=== PATIENT | female | born 1970 | race Caucasian/White ===

== ENCOUNTER 2017-10-09 20:16 | Inpatient (IN) ==
[2017-10-09] MEDS ORDERED: Naloxone 0.4 MG/ML INJ IVP PRN (22:29)
[2017-10-09] MEDS ORDERED: Ondansetron 4 MG/2 ML VIAL IVP PRN (22:29)
[2017-10-09] MEDS ORDERED: Acetaminophen 325 MG TABLET PO PRN (22:29)
[2017-10-09] MEDS ORDERED: Dextrose Gel 15 GM PO PRN ×2 (22:35)
[2017-10-09] MEDS ORDERED: D5% in Water 1,000 ML IVC PRN (22:35)
[2017-10-09] MEDS ORDERED: *HR* Dextrose 50 % in Water (Syg) 50 ML SYRINGE IVP PRN (22:35)
--- NOTE | 2017-10-09 22:37 | Internal Med History&Physical ---
Date of Encounter: 10/09/17 Time of Encounter: 22:20 Assessment and Plan (1) Diabetic foot ulcer Current visit: Yes Status: Acute Chronic diabetic foot ulcer of the right foot, seems to be worsening - possible osteomyelitis or possible gas gangrene - with abscess Continue IV Cefepime, IV Vancomycin, IV Clindamycin, IV fluids Chest x-ray - negative EKG - sinus rhythm with no acute ST-T changes Troponin - 0.04, cycle troponin X-ray right foot - no evidence of osteomyelitis, mild soft tissue gas Podiatry consult Cardiac telemetry, labs in a.m., monitor closely Qualifiers: Diabetic foot ulcer location: heel Diabetes mellitus type: type 2 Laterality: right Non-pressure ulcer stage: with muscle involvement without evidence of necrosis Qualified Code(s): E11.621 - Type 2 diabetes mellitus with foot ulcer; L97.415 - Non-pressure chronic ulcer of right heel and midfoot with muscle involvement without evidence of necrosis; L97.415 - Non-pressure chronic ulcer of right heel and midfoot with muscle involvement without evidence of necrosis (2) Acute kidney injury Current visit: Yes Status: Acute Acute kidney injury - probably due to sepsis due to right foot ulcer/wound Continue IV fluids, repeat labs in a.m. Replace electrolytes including magnesium, monitor closely (3) Diabetes mellitus Current visit: Yes Status: Chronic Type 2 diabetes mellitus, insulin-dependent, hyperglycemia Continue Levemir, insulin sliding scale, glucose checks Qualifiers: Diabetes mellitus type: type 2 Diabetes mellitus complication status: with skin complications Diabetes mellitus complication detail: with foot ulcer Diabetes mellitus fci insulin use: with fci use Qualified Code(s) : E11.621 - Type 2 diabetes mellitus with foot ulcer; L97.509 - Non-pressure chronic ulcer of other part of unspecified foot with unspecified severity; L97.509 - Non-pressure chronic ulcer of other part of unspecified foot with unspecified severity; L97.509 - Non-pressure chronic ulcer of other part of unspecified foot with unspecified severity; L97.509 - Non-pressure chronic ulcer of other part of unspecified foot with unspecified severity; 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; 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; 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; Z79.4 - prison (current) use of insulin (4) HTN (hypertension) Current visit: Yes Status: Chronic Essential hypertension, controlled, monitor Continue home dose of Lopressor, HCTZ Qualifiers: Hypertension type: essential hypertension Qualified Code(s): I10 - Essential (primary) hypertension (5) Tobacco abuse Current visit: Yes Status: Chronic Counseled about cessation, nicotine patch (6) Hyperlipidemia Current visit: Yes Status: Chronic Continue Lipitor Qualifiers: Hyperlipidemia type: unspecified Qualified Code(s): E78.5 - Hyperlipidemia , unspecified (7) DVT prophylaxis Current visit: Yes Status: Acute Heparin subcutaneous Internal Medicine - H&P: HPI Chief complaint: Right foot ulcer Admitted From: Emergency Dept Plans for Post Hospital Care: Home History of present illness: Ms. Larson is a 46 year old female past medical history of hypertension, hyperlipidemia, chronic lower extremity wounds and diabetes. Patient presents as a transfer from [facility] for right foot ulcer. Examined in the room. Patient is awake and alert. Not in any distress. Able to provide all history. No family members at bedside. Patient states she follows up with wound care clinic for chronic foot wound. Home health nurse also comes to change her dressing daily. Today patient noticed that she has been having more pain over right heel. She noticed that the ulcer has also gotten darker, and she also seems to have developed another ulcer on the lateral aspect of her right foot. Patient then decided to go to the ED to have her right foot wound evaluated. She denies fever or chills. Denies chest pain or shortness of breath or palpitations. Patient states she follows up with podiatry regularly. She has also been on IV vancomycin and IV cefepime in the recent past. She has not had any debridement recently. No aggravating or alleviating factors. No other associated symptoms. No other acute complaints. Hospitalist service was contacted for transfer to [facility] for further management. Initial workup revealed elevated white count and acute kidney injury. Chest x- ray is negative. X-ray of the right foot is negative for us to myelitis, but there is some soft tissue gas. Patient will need IV antibiotics and IV fluids. Podiatry consult is pending. Change dressing daily. Patient has been explained about her condition and plan of care detail. She understood and agreed. No unanswered questions. CODE STATUS full code. Past Med Surg Social Fam HX - Past Medical History Medical history: diabetes, hypertension, other Psychiatric history: depression - Past Surgical History Surgical History: hysterectomy - Social History Smoking Status: Current every day smoker Smokeless Tobacco Status: No Alcohol use: none Drug use: none - Family History Sister Hx Family Endocrine Disorder: Yes (Diabetes) Grandfather Hx Family Cardiac Disorders: Yes (Coronary artery disease at age 50) Father Hx Family Cardiac Disorders: Yes Hx Family Cancer: Yes (prostate cancer) Internal Medicine - H&P: Meds Atorvastatin [Lipitor] 20 mg PO QPM 06/11/15 [History] Cholecalciferol (Vitamin D3) [Vitamin D3] 10,000 unit PO QWEEK PRN 06/11/15 [ History] Gabapentin [Neurontin] 600 mg PO TID 06/11/15 [History] Hydrochlorothiazide 25 mg PO QAM 06/11/15 [History] Ibuprofen [Motrin] 800 mg PO TID PRN 06/11/15 [History] Insulin ASPART [NovoLOG] 0 - 12 unit SQ AD 06/11/15 [History] Insulin Glargine,Hum.rec.anlog [Lantus Solostar] 0.6 ml SQ QPM 06/11/15 [History ] Metoprolol [Lopressor] 25 mg PO DAILY 06/11/15 [History] Quetiapine Fumarate [Seroquel] 100 mg PO HS 06/11/15 [History] SUMAtriptan Succinate [Imitrex] 100 mg PO AD PRN 06/11/15 [History] Cefepime HCl [Maxipime] 1,000 mg IVPB Q8HR 14 Days vial 06/17/15 [Rx] Vancomycin [Vancocin] 1,250 mg IV Q12H 14 Days vial 06/17/15 [Rx] 3 Allergy/AdvReac Type Severity Reaction Status Date / Time Penicillins Allergy Hives Verified 06/11/15 15:16 All Systems PM: A 10-system review of systems was performed and is negative for pertinent findings except as documented above in the HPI. - Constitutional Constitutional: fatigue, no fever(s), no weakness - EENT Eyes: no blurry vision Nose, mouth and throat: no dry mouth - Cardiovascular Cardiovascular ROS IM: no chest pain, no diaphoresis, no dyspnea, no dyspnea on exertion, no edema, no lightheadedness, no orthopnea, no palpitations, no syncope - Respiratory Respiratory: no cough, no dyspnea, no hemoptysis, no dyspnea on exertion, no wheezing, no chest congestion - Gastrointestinal Gastrointestinal: no abdominal pain, no bloating, no cramping, no diarrhea, no hematemesis, no hematochezia, no loose stools, no melena, no nausea, no vomiting - Genitourinary Genitourinary: no dysuria - Neurological Neurological ROS: no abnormal gait, no abnormal speech, no confusion, no dizziness, no focal weakness, no loss of vision, no memory loss, no numbness, no tingling - Constitutional Vitals: Temp Pulse Resp BP Pulse Ox 97.7 F 109 18 115/76 96 10/09/17 22:11 10/09/17 22:11 10/09/17 22:11 10/09/17 22:11 10/09/17 22:11 General appearance: Present: cooperative, A&O X 3, pleasant, no acute distress, answers questions appropriately - Head Head exam: Present: atraumatic - Eye Eye exam: Present: EOMI - ENT ENT exam: Present: mucous membranes dry - Respiratory Respiratory exam: Present: CTAB. Absent: accessory muscle use, chest wall tenderness, rales, respiratory distress, rhonchi, wheezes, tachypnea - Cardiovascular Cardiovascular exam: Present: RRR, +S1, +S2 - GI/Abdominal GI/Abdominal exam: Present: soft. Absent: distended, firm, guarding, tenderness - Extremities Exam Extremities exam: Present: pedal edema (Bilateral 2+ pitting edema), radial pulses palpable and symmetrical. Absent: calf tenderness, cyanotic Additional comments: Patient does have a large extensive ulcer over the right heel with eschar. No discharge seen. There is another ulcer on the lateral aspect of the right foot. There is some odor. - Neurological Exam Neurological exam: Present: alert, oriented X3, no focal deficits. Absent: facial droop, speech deficit Internal Med - H&P Results - Labs CBC & Chem 7: 10/09/17 22:59 10/10/17 01:57
[2017-10-09] MEDS ORDERED: Vancomycin 1,000 MG in D5% in Water 250 ML IVPB SCH (23:00)
[2017-10-09 23:10] LABS: Basophils % 0.2 %; Eosinophils # 0.1 K/mcL (0.0-0.6); Eosinophils % 0.7 %; Hematocrit 26.6 % (35.3-44.9); Hemoglobin 8.8 g/dL (11.5-15.4); Immature Granulocytes % 0.7 % (0-4); Lymphocytes # 1.9 K/mcL (0.6-4.6); Lymphocytes % 13.7 %; Mean Corpuscular HGB Conc 33.1 g/dL (31.6-35.5); Mean Corpuscular Hemoglobin 30.3 pg (28.0-33.3); Mean Corpuscular Volume 91.7 fL (83.0-100.0); Mean Platelet Volume 8.8 fL (9.4-12.4); Monocytes # 1.4 K/mcL (0.0-1.3); Monocytes % 10.3 %; Neutrophils # 10.3 K/mcL (1.6-8.9); Platelet Count 330 K/mcL (140-400); Red Cell Distribution Width 12.9 % (11.5-14.5); Segmented Neutrophils % 74.4 %
[2017-10-09 23:14] LABS: INR 1.3; Prothrombin Time 14.3 Seconds (9.4-12.1)
[2017-10-09 23:24] LABS: Albumin 2.2 g/dL (3.5-5.0); Albumin/Globulin Ratio 0.4 (1.1-2.2); Bilirubin,Total 0.3 mg/dL (0.2-1.2); Calcium 8.8 mg/dL (8.6-10.8); Globulin 5.1 g/dL (2.4-3.5); Magnesium 1.3 mg/dL (1.6-2.6); Total Protein 7.3 g/dL (6.0-8.3)
[2017-10-09] MEDS: Aspirin 81 MG TAB.CHEW PO SCH (23:54)
[2017-10-10] MEDS ORDERED: Cefepime HCl 2,000 MG in D5% in Water (Mini-Bag+) 100 ML IVPB SCH
[2017-10-10 00:14] LABS: Bilirubin,Urine Negative (Negative); Blood,Urine Negative (Negative); Clarity,Urine Clear (Clear); Color,Urine Yellow (Yellow); Glucose,Urine (UA) Normal (Normal); Ketones,Urine Negative (Negative); Leukocyte Esterase,Urine Negative (Negative); Nitrite,Urine Negative (Negative); Protein,Urine Trace mg/dL (Neg-Trace); Specific Gravity,Urine 1.017 (1.010-1.025); Urobilinogen,Urine Normal (Normal)
[2017-10-10 00:16] LABS: Bacteria,Urine None Seen per hpf (None-Few); Hyaline Casts,Urine None Seen per lpf (None-Few); Squamous Epithelial Cell,Urine Many per lpf (None-Few); WBC,Urine 0-3 per hpf (0-3)
[2017-10-10] MEDS: 0.9 % Sodium Chloride 1,000 ML IVC SCH ×3 (01:09→23:27)
[2017-10-10] MEDS: Cefepime HCl 2,000 MG in Water for inj. (sterile) 20 ML IVP SCH ×3 (01:09→21:45)
[2017-10-10] MEDS: Vancomycin 1,250 MG in D5% in Water 250 ML IVPB SCH (01:26)
[2017-10-10] MEDS: Insulin LISPRO 300 UNITS/3 ML VIAL SQ SCH ×5 (01:31→23:53)
[2017-10-10] MEDS: Nicotine 21 MG PATCH.TD24 TD SCH ×2 (02:05→07:57)
[2017-10-10 02:27] LABS: % Iron Saturation 38 % (15-50); Calcium 8.7 mg/dL (8.6-10.8); Chol/HDL Ratio 8.2 (0-4.9); Iron 50 mcg/dL (50-170); Potassium 4.8 mEq/L (3.5-4.5); Transferrin 93 mg/dL (180-382)
[2017-10-10] MEDS: *HR* Heparin 5,000 UNIT/ML VIAL SQ SCH ×2 (05:23→18:16)
[2017-10-10] MEDS: Clindamycin 900 MG/50 ML 900 MG/50 ML IV.SOLN IVPB SCH ×3 (07:57→23:27)
[2017-10-10] MEDS: Aspirin 81 MG TAB.CHEW PO SCH (07:58)
[2017-10-10] MEDS ORDERED: SUMAtriptan succinate 50 MG TABLET PO PRN (10:31)
--- NOTE | 2017-10-10 10:39 | Internal Med Progress Note ---
Date of Encounter: 10/10/17 Time of Encounter: 10:35 - Assessment and plan (1) Osteomyelitis Current Visit: Yes Status: Acute Assessment and plan: Continue Vanco, clinda, cefepime Podiatry has been consulted CT/CT foot RT wo con IMPRESSION: 1. Large plantar and lateral hindfoot ulceration with extensive soft tissue gas. There is soft tissue gas extending to involve the calcaneus. Findings are consistent with gas-forming bacterial infection and osteomyelitis. 2. Additional soft tissue gas within the lateral soft tissues of the midfoot consistent with additional site of gas-forming bacterial infection. Qualifiers: Osteomyelitis type: unspecified type Osteomyelitis location: foot Laterality: right Qualified Code(s): M86.9 - Osteomyelitis, unspecified (2) Diabetic foot ulcer Current Visit: Yes Status: Acute Assessment and plan: Gas gangrene, infected DM foot lcer Podiatry was called this morning and informed Continue Cllindamycin, Vancomcycin and Cefepime Continue wound care Wound culture was obtained, will follow CT/CT foot RT wo con IMPRESSION: 1. Large plantar and lateral hindfoot ulceration with extensive soft tissue gas. There is soft tissue gas extending to involve the calcaneus. Findings are consistent with gas-forming bacterial infection and osteomyelitis. 2. Additional soft tissue gas within the lateral soft tissues of the midfoot consistent with additional site of gas-forming bacterial infection. Qualifiers: Diabetic foot ulcer location: heel Diabetes mellitus type: type 2 Laterality: right Non-pressure ulcer stage: with fat layer exposed Qualified Code(s): E11.621 - Type 2 diabetes mellitus with foot ulcer; L97.412 - Non-pressure chronic ulcer of right heel and midfoot with fat layer exposed; L97.412 - Non-pressure chronic ulcer of right heel and midfoot with fat layer exposed; L97.412 - Non-pressure chronic ulcer of right heel and midfoot with fat layer exposed; L97.412 - Non-pressure chronic ulcer of right heel and midfoot with fat layer exposed (3) Gas gangrene Current Visit: Yes Status: Acute Assessment and plan: as above (4) HTN (hypertension) Current Visit: Yes Status: Chronic Assessment and plan: Controlled, continue home medications except lisinopril and hydrochlorothiazide due to acute kidney injury. Qualifiers: Hypertension type: essential hypertension Qualified Code(s): I10 - Essential (primary) hypertension (5) Depression Current Visit: Yes Status: Chronic Assessment and plan: Continue home medications. Qualifiers: Depression Type: unspecified Qualified Code(s): F32.9 - Major depressive disorder, single episode, unspecified (6) Anemia Current Visit: Yes Status: Chronic Assessment and plan: Chronic, possibly anemia of chronic disease. Hemoglobin is stable at 8.8. Continue to monitor. Qualifiers: Anemia type: unspecified type Qualified Code(s): D64.9 - Anemia, unspecified (7) Acute kidney injury Current Visit: Yes Status: Acute Assessment and plan: Continue IV fluid hydration, continue to monitor. avoid nephrotoxins. (8) Hyperlipidemia Current Visit: Yes Status: Chronic Assessment and plan: Continue home meds Qualifiers: Hyperlipidemia type: unspecified Qualified Code(s): E78.5 - Hyperlipidemia , unspecified (9) DVT prophylaxis Current Visit: Yes Status: Acute Assessment and plan: Heparin SQ (10) Diabetes mellitus Current Visit: Yes Status: Chronic Assessment and plan: Add levemir, continue SSI Monitor FS ACHS ADA diet Qualifiers: Diabetes mellitus type: type 2 Diabetes mellitus complication status: with skin complications Diabetes mellitus complication detail: with foot ulcer Diabetes mellitus nursing home insulin use: with intermediate teacher use Qualified Code(s) : E11.621 - Type 2 diabetes mellitus with foot ulcer; L97.509 - Non-pressure chronic ulcer of other part of unspecified foot with unspecified severity; L97.509 - Non-pressure chronic ulcer of other part of unspecified foot with unspecified severity; L97.509 - Non-pressure chronic ulcer of other part of unspecified foot with unspecified severity; L97.509 - Non-pressure chronic ulcer of other part of unspecified foot with unspecified severity; 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 46-year-old female with uncontrolled type 2 diabetes mellitus with history of chronic right foot ulcer. Patient is admitted and being managed for infected and gangrenous diabetic foot ulcer, as well as acute kidney injury. She is awaiting podiatry evaluation. She denies new complaints. I will obtain CAT scan of the foot - Constitutional Vitals: Temp Pulse Resp BP Pulse Ox 98.1 F 98 16 104/69 96 10/10/17 07:17 10/10/17 07:17 10/10/17 07:17 10/10/17 07:17 10/10/17 07:17 General appearance: Present: cooperative, A&O X 3, pleasant, no acute distress, obese, answers questions appropriately - Head Head exam: Present: atraumatic, normocephalic - Eye Eye exam: Present: PERRL, conjuntiva pink, sclera anicteric Pupils: Present: PERRL - Neck Neck exam general surgery: Present: supple, trachea midline. Absent: lymphadenopathy - Respiratory Respiratory exam: Present: CTAB. Absent: accessory muscle use, rales, rhonchi, wheezes - Cardiovascular Cardiovascular exam: Present: RRR, +S1, +S2. Absent: diastolic murmur, gallop, rubs, systolic murmur - GI/Abdominal GI/Abdominal exam: Present: normal bowel sounds, soft, no peritoneal signs. Absent: distended, tenderness - Extremities Exam Additional comments: Right heel with open wound approximately 7cm in Diameter. Edges Has Gangrene and Basal the Wound Is Necrotic with no Noticeable Granulation Tissue. Pulses are present and foot is warm LEft foot s/p Big toe amputation - Neurological Exam Neurological exam: Present: alert, CN II-XII intact, oriented X3, no focal deficits. Absent: pronater drift, facial droop, speech deficit - Skin Skin exam: Present: dry Internal Medicine: Result - Labs CBC & Chem 7: 10/09/17 22:59 10/10/17 01:57 Labs: Short CBC 10/09/17 Range/Units 22:59 WBC 13.8 H (4.3-11.1) K/mcL Hgb 8.8 L (11.5-15.4) g/dL Hct 26.6 L (35.3-44.9) % Plt Count 330 (140-400) K/mcL Neutrophils # 10.3 H (1.6-8.9) K/mcL BMP 10/09/17 10/10/17 22:59 01:57 Sodium 132 L 130 L Potassium 5.0 H 4.8 H Chloride 102 104 Carbon Dioxide 21 20 BUN 45 H 45 H Creatinine 1.93 H 1.86 H Glucose 200 H 211 H Calcium 8.8 8.7 Cardiac Enzymes 10/09/17 10/10/17 10/10/17 Range/Units 22:59 01:57 06:06 Troponin I 0.05 H* 0.04 H* 0.03 (0-0.03) ng/mL Liver Function 10/09/17 Range/Units 22:59 Total Bilirubin 0.3 (0.2-1.2) mg/dL AST 17 (5-34) Units/L ALT 27 (0-55) Units/L Alkaline Phosphatase 146 H (38-126) Units/L Albumin 2.2 L (3.5-5.0) g/dL Urine 10/09/17 Range/Units 23:55 Urine Color Yellow (Yellow) Urine Clarity Clear (Clear) Urine pH 6.0 (5.0-8.0) pH Units Ur Specific Beryl 1.017 (1.010-1.025) Urine Protein Trace (Neg-Trace) mg/dL Urine Glucose (UA) Normal (Normal) mg/dL - ABG Interpretation ABG results: PT/INR, D-dimer PT 14.3 Seconds (9.4-12.1) H 10/09/17 22:59 - Impressions Impressions Chest X-Ray 10/09/17 22:35 IMPRESSION: Hypoventilatory changes. No evidence of acute cardiopulmonary process. Left basilar opacity is most compatible with atelectasis and/or scarring. Recommend radiographic follow-up to complete resolution. D/ / Bridger Tran MD / Bridger Tran MD Interpreting Provider: Bridger Tran MD Foot X-Ray 10/10/17 01:14 IMPRESSION: No radiographic evidence for osteomyelitis. D/ / Jaiden Frost MD / Jaiden Frost MD Interpreting Provider: Jaiden Frost MD Consult Discharge Plan - Plan Referrals: Alejandro Le DO [Primary Care Provider] -
--- NOTE | 2017-10-10 12:53 | Podiatry Consult Note ---
Date of Encounter: 10/10/17 Time of Encounter: 12:30 Assessment and Plan (1) Diabetes mellitus Current visit: Yes Status: Chronic Qualifiers: Diabetes mellitus type: type 2 Diabetes mellitus complication status: with skin complications Diabetes mellitus complication detail: with foot ulcer Diabetes mellitus fci insulin use: with fci use Qualified Code(s) : E11.621 - Type 2 diabetes mellitus with foot ulcer; L97.509 - Non-pressure chronic ulcer of other part of unspecified foot with unspecified severity; L97.509 - Non-pressure chronic ulcer of other part of unspecified foot with unspecified severity; L97.509 - Non-pressure chronic ulcer of other part of unspecified foot with unspecified severity; L97.509 - Non-pressure chronic ulcer of other part of unspecified foot with unspecified severity; Z79.4 - terminal carman (current) use of insulin; Z79.4 - jail (current) use of insulin; Z79.4 - terminal carman (current) use of insulin; Z79.4 - jail (current) use of insulin (2) Peripheral neuropathy Current visit: No Status: Chronic Qualifiers: Peripheral neuropathy type: polyneuropathy, unspecified Qualified Code(s): G62.9 - Polyneuropathy, unspecified (3) Acute kidney injury Current visit: Yes Status: Acute (4) Diabetic foot ulcer Current visit: Yes Status: Acute Necrotic right heel ulcer with cellulitis and area of fluctuance to the lateral aspect of the 5th metatarsal head right foot. Xray of right foot negative for OM. CT of right foot showed a large plantar and lateral hindfoot ulceration with extensive soft tissue gas. There is soft tissue gas extending to involve the calcaneus. Findings are consistent with gas-forming bacterial infection and osteomyelitis. Additional soft tissue gas within the lateral soft tissues of the midfoot consistent with additional site of gas-forming bacterial infection. WBC: 13.8 Hgb A1C: 12 Plan: Keep patient nothing by mouth. Sessions to plan on taking patient to surgery today for a debridement of right heel, midfoot. Agree with present antibiotic therapy. Qualifiers: Diabetic foot ulcer location: heel Diabetes mellitus type: type 2 Laterality: right Non-pressure ulcer stage: with fat layer exposed Qualified Code(s): E11.621 - Type 2 diabetes mellitus with foot ulcer; L97.412 - Non-pressure chronic ulcer of right heel and midfoot with fat layer exposed; L97.412 - Non-pressure chronic ulcer of right heel and midfoot with fat layer exposed; L97.412 - Non-pressure chronic ulcer of right heel and midfoot with fat layer exposed; L97.412 - Non-pressure chronic ulcer of right heel and midfoot with fat layer exposed History of Present Illness HPI: Ms. Larson is a 46 year old female admitted to [facility] for a necrotic right heel ulcer. Patient has a medical history significant for hypertension, hyperlipidemia, chronic lower extremity wounds and diabetes with neuropathy. Patient has had chronic wounds to the right foot over the past 3 years. Patient had surgery for a chronic ulcer of the right great toe in July of [address] Hernandez at [facility]. Patient states while she was recovering from surgery of the right great toe in July she formed a pressure ulcer to the right heel. Since then patient has been receiving weekly debridements at [facility] in the wound care center. Patient states she has been applying Santyl with Betadine and wrapping ulcer daily at home. Patient has home health care weekly. Patient states she was suppose to have a PICC line placed this week to receive IV vancomycin for MRSA of the right heel. Per spouse home health care nurse came out to change the dressing of the right heel yesterday and patient was sent to the ED for redness, swelling and drainage of the right foot. Patient admits to fever and chills. No complaints of chest pain, shortness of breath, or nausea or vomiting. An x-ray of the right foot was obtained upon admission and negative for osteomyelitis. WBC was 13.8. Hemoglobin A1C: 12 Past Med Surg Social Fam HX - Past Medical History Medical history: diabetes, hypertension, other Psychiatric history: depression - Past Surgical History Surgical History: hysterectomy - Social History Smoking Status: Current every day smoker Smokeless Tobacco Status: No Alcohol use: none Drug use: none - Family History Sister Hx Family Endocrine Disorder: Yes (Diabetes) Grandfather Hx Family Cardiac Disorders: Yes (Coronary artery disease at age 50) Father Hx Family Cardiac Disorders: Yes Hx Family Cancer: Yes (prostate cancer) Medications and Allergies Atorvastatin [Lipitor] 20 mg PO QPM 06/11/15 [History] Cholecalciferol (Vitamin D3) [Vitamin D3] 10,000 unit PO QWEEK PRN 08/13/15 [ History] Gabapentin [Neurontin] 600 mg PO TID 06/11/15 [History] Ibuprofen [Motrin] 800 mg PO TID PRN 06/11/15 [History] Insulin ASPART [NovoLOG] 0 - 12 unit SQ AD PRN 06/11/15 [History] Insulin Glargine,Hum.rec.anlog [Lantus Solostar] 50 units SQ QPM 06/11/15 [ History] Metoprolol [Lopressor] 25 mg PO DAILY 06/11/15 [History] Quetiapine Fumarate [Seroquel] 100 mg PO HS 06/11/15 [History] SUMAtriptan Succinate [Imitrex] 100 mg PO AD PRN 06/11/15 [History] Aspirin [Lo-Dose Aspirin EC] 81 mg PO DAILY 10/10/17 [History] Buprenorphine HCl/Naloxone HCl [Suboxone 8 mg-2 mg Sl Film] 1 film SL BID [History] Lisinopril-HCTZ 20-12.5 [Prinzide 20-12.5] 1 tab PO DAILY 10/10/17 [History] Omeprazole [PriLOSEC] 20 mg PO DAILY 10/10/17 [History] 3 Allergy/AdvReac Type Severity Reaction Status Date / Time Penicillins Allergy Swelling Verified 10/10/17 08:33 of Lip/Tongue/Throat All Systems Reviewed: A 10-system review of systems was performed and is negative for pertinent findings except as documented above in the HPI. Physical Exam - Constitutional Vitals: Temp Pulse Resp BP Pulse Ox 97.9 F 96 18 110/73 95 10/10/17 11:51 10/10/17 11:51 10/10/17 11:51 10/10/17 11:51 10/10/17 11:51 Exam: General appearance: alert awake oriented X 3. Calm and pleasant, no acute distress.. Vascular: Right foot: Pedal pulses +2/4 DP/PT , No evidence of cyanosis, pallor or rubor, Edema graded at 2+/4, Skin Temperature warm, No calf pain with manual compression. capillary refill time is immediate to digits. Neurologic: Sensation diminished with light touch to foot. . Ulcer: Necrotic right heel ulcer measuring 4 cm in length x 8 cm in width, malodorous, ulcer is boggy with moderate amount of serosanguineous drainage observed to dressing. Small area of fluctuance to the lateral aspect of the 5th metatarsal with serous drainage actively draining, periwound erythema ascending to the right lateral ankle. No probe to bone. Results - Labs Result Diagrams: 10/09/17 22:59 10/10/17 01:57 Labs: Abnormal lab results WBC 13.8 K/mcL (4.3-11.1) H 10/09/17 22:59 RBC 2.90 M/mcL (3.82-4.97) L 10/09/17 22:59 Hgb 8.8 g/dL (11.5-15.4) L 10/09/17 22:59 Hct 26.6 % (35.3-44.9) L 10/09/17 22:59 MPV 8.8 fL (9.4-12.4) L 10/09/17 22:59 Neutrophils # 10.3 K/mcL (1.6-8.9) H 10/09/17 22:59 Monocytes # 1.4 K/mcL (0.0-1.3) H 10/09/17 22:59 PT 14.3 Seconds (9.4-12.1) H 10/09/17 22:59 Sodium 130 mEq/L (136-145) L 10/10/17 01:57 Potassium 4.8 mEq/L (3.5-4.5) H 10/10/17 01:57 BUN 45 mg/dL (7-20) H 10/10/17 01:57 Creatinine 1.86 mg/dL (0.57-1.11) H 10/10/17 01:57 Est GFR ( Amer) 35 (> 60) L 10/10/17 01:57 Est GFR (Non-Af Amer) 29 (> 60) L 10/10/17 01:57 Glucose 211 mg/dL (70-99) H 10/10/17 01:57 Hemoglobin A1c 12.0 % (-5.6) H 10/09/17 22:59 Magnesium 1.5 mg/dL (1.6-2.6) L 10/10/17 01:57 Transferrin 93 mg/dL (180-382) L 10/10/17 01:57 Alkaline Phosphatase 146 Units/L (38-126) H 10/09/17 22:59 Albumin 2.2 g/dL (3.5-5.0) L 10/09/17 22:59 Globulin 5.1 g/dL (2.4-3.5) H 10/09/17 22:59 Albumin/Globulin Ratio 0.4 (1.1-2.2) L 10/09/17 22:59 Triglycerides 300 mg/dL (< 150) H 10/10/17 01:57 VLDL Cholesterol, Calc 60 mg/dL (< 31) H 10/10/17 01:57 HDL Cholesterol 16 mg/dL (40-59) L 10/10/17 01:57 Cholesterol/HDL Ratio 8.2 (0-4.9) H 10/10/17 01:57 Urine Microscopic RBC 5-15 per hpf (0-3) H 10/09/17 23:55 Ur Squamous Epith Cells Many per lpf (None-Few) H 10/09/17 23:55 H & H 10/09/17 Range/Units 22:59 Hgb 8.8 L (11.5-15.4) g/dL Hct 26.6 L (35.3-44.9) % All other labs normal. Consult Discharge Plan - Plan Referrals: Alejandro Le DO [Primary Care Provider] -
[2017-10-10] MEDS: Gabapentin 300 MG CAPSULE PO SCH ×2 (14:35→21:45)
--- NOTE | 2017-10-10 14:49 | Podiatry Progress Note ---
Date of Encounter: 10/10/17 Time of Encounter: 14:46 - Assessment and Plan (1) Osteomyelitis Current Visit: Yes Status: Acute The patient was instructed that she would benefit from surgical debridement. Patient was instructed that it may require resection of bone depending on the the severity of the infection. The specific procedure discussed was incision and drainage of the right foot with possible resection of affected bone and or amputation.Patient was informed of the risks and complications of surgery. These may include but are not limited to the following; nerve damage, numbness, tingling, RSD/CRPS, loss of motor function, loss of toe, loss of limb, loss of life, ischemia, wound healing issues, infection, scarring, keloid formation, continued pain, arthritis, non-union, mal-union, prominent hardware, displaced hardware, reaction to hardware, the need to remove hardware, bruising, continued limp, the need for future surgery, over correction, under correction, chronic swelling, the need for physical therapy, stiffness of joints, ulceration , slow healing, wound dehiscence, reaction to implant, reaction to sutures. The patient was informed of the possible conservative treatments available which may include but are not limited to the following: Orthotics, bracing, non -weight bearing, physical therapy, padding, taping, steroid injections, NSAIDS, casting. The patient was given the option to seek a second opinion. It was explained that surgery is an art and not an exact science therefore results cannot be guaranteed. All the patients questions and concerns were addressed. Patient agrees to have the surgery despite the possible risks and complications. Absolutely no guarantees were given or implied. Qualifiers: Osteomyelitis type: unspecified type Osteomyelitis location: foot Laterality: right Qualified Code(s): M86.9 - Osteomyelitis, unspecified Subjective Principal diagnosis: Right foot infection Interval history: The patient was seen at bedside and relates that she has had a worsening right foot infection. Patient relates that she had a mild infection which seems to have gotten much worse over the last few days. Objective - Vital Signs Vital Signs: Vital Signs Temp Pulse Resp BP Pulse Ox 10/10/17 11:51 97.9 F 96 18 110/73 95 10/10/17 07:17 98.1 F 98 16 104/69 96 10/10/17 04:18 104/70 10/10/17 03:45 98.0 F 101 18 98/67 97 10/09/17 22:11 97.7 F 109 18 115/76 96 Intake and Output 10/09/17 10/10/17 10/10/17 23:59 07:59 15:59 Intake Total 370 / 370 / 20 Balance 370 / 370 20 Intake: IV Fluids 370 / 370 / 20 Maxipime 2,000 MG In Water for 20 / 20 inj. (sterile) 20 ML @ 300 mls/ hr IVP Q8HR [facility] Rx#:[id number] Cleocin Premix 900 MG/50 ML 900 50 / 50 mg In 50 ml @ 50 mls/hr IVPB Q8HR [facility] Rx#:[id number] Magnesium Sulfate Premix 2gm/ 50 / 50 50mL 2 gm In 50 ml @ 48.077 mls /hr IVPB ONCE ONE Rx#: [id number] Vancocin 1,250 MG In Dextrose 5 250 / 250 % 250 ML @ 166.67 mls/hr IVPB DAILY@0100 [facility] Rx#:[id number] Other: Weight 88.405 kg 91.308 kg Blood Glucose* 219 162 151 Patient Weight 10/10/17 23:59 Weight 91.308 kg - Exam Exam: General appearance: alert awake oriented X 3. Calm and pleasant, no acute distress.. Vascular: Right foot: Pedal pulses +2/4 DP/PT , No evidence of cyanosis, pallor or rubor, Edema graded at 2+/4, Skin Temperature warm, No calf pain with manual compression. capillary refill time is immediate to digits. Neurologic: Sensation diminished with light touch to foot. . Ulcer: Necrotic right heel ulcer measuring approximately 4 cm in length x 8 cm in width, malodorous, ulcer is slightly boggy with moderate amount of serosanguineous drainage observed to dressing. There is noted to be an area of fluctuance to the lateral aspect of the 5th metatarsal with serous drainage actively draining, periwound erythema ascending to the right the right lateral ankle. No probe to bone. Malodor noted. - Lab Result Diagrams: 10/09/17 22:59 10/10/17 01:57 Labs: Abnormal lab results WBC 13.8 K/mcL (4.3-11.1) H 10/09/17 22:59 RBC 2.90 M/mcL (3.82-4.97) L 10/09/17 22:59 Hgb 8.8 g/dL (11.5-15.4) L 10/09/17 22:59 Hct 26.6 % (35.3-44.9) L 10/09/17 22:59 MPV 8.8 fL (9.4-12.4) L 10/09/17 22:59 Neutrophils # 10.3 K/mcL (1.6-8.9) H 10/09/17 22:59 Monocytes # 1.4 K/mcL (0.0-1.3) H 10/09/17 22:59 PT 14.3 Seconds (9.4-12.1) H 10/09/17 22:59 Sodium 130 mEq/L (136-145) L 10/10/17 01:57 Potassium 4.8 mEq/L (3.5-4.5) H 10/10/17 01:57 BUN 45 mg/dL (7-20) H 10/10/17 01:57 Creatinine 1.86 mg/dL (0.57-1.11) H 10/10/17 01:57 Est GFR ( Amer) 35 (> 60) L 10/10/17 01:57 Est GFR (Non-Af Amer) 29 (> 60) L 10/10/17 01:57 Glucose 211 mg/dL (70-99) H 10/10/17 01:57 POC Glucose 151 (58-89) H 10/10/17 11:54 Hemoglobin A1c 12.0 % (-5.6) H 10/09/17 22:59 Magnesium 1.5 mg/dL (1.6-2.6) L 10/10/17 01:57 Transferrin 93 mg/dL (180-382) L 10/10/17 01:57 Alkaline Phosphatase 146 Units/L (38-126) H 10/09/17 22:59 Albumin 2.2 g/dL (3.5-5.0) L 10/09/17 22:59 Globulin 5.1 g/dL (2.4-3.5) H 10/09/17 22:59 Albumin/Globulin Ratio 0.4 (1.1-2.2) L 10/09/17 22:59 Triglycerides 300 mg/dL (< 150) H 10/10/17 01:57 VLDL Cholesterol, Calc 60 mg/dL (< 31) H 10/10/17 01:57 HDL Cholesterol 16 mg/dL (40-59) L 10/10/17 01:57 Cholesterol/HDL Ratio 8.2 (0-4.9) H 10/10/17 01:57 Urine Microscopic RBC 5-15 per hpf (0-3) H 10/09/17 23:55 Ur Squamous Epith Cells Many per lpf (None-Few) H 10/09/17 23:55 Consult Discharge Plan - Plan Referrals: Alejandro Le DO [Primary Care Provider] -
--- NOTE | 2017-10-10 14:50 | Anesthesia Evaluation PreOp ---
Date of Encounter: 10/10/17 Time of Encounter: 14:47 - Past History Planned Operation: I&D right foot, possible bone resection Cardiac History: HTN, Hyperlipidemia Pulmonary History: Smoker, Pack/yr (20) TREE MARKER History: Other (diabetic neuropathy) Other Medical History: Renal (ROGER), Diabetes Type II, Other (Sepsis) Anesthesia History: No Prior Anesthetic Complications, Past Anesthesia (left TMA , AIDEE, back sx) Alcohol Use: none Drug use: none Medications and Allergies Atorvastatin [Lipitor] 20 mg PO QPM 06/11/15 [History] Cholecalciferol (Vitamin D3) [Vitamin D3] 10,000 unit PO QWEEK PRN 06/11/15 [ History] Gabapentin [Neurontin] 600 mg PO TID 06/11/15 [History] Ibuprofen [Motrin] 800 mg PO TID PRN 06/11/15 [History] Insulin ASPART [NovoLOG] 0 - 12 unit SQ AD PRN 06/11/15 [History] Insulin Glargine,Hum.rec.anlog [Lantus Solostar] 50 units SQ QPM 06/11/15 [ History] Metoprolol [Lopressor] 25 mg PO DAILY 06/11/15 [History] Quetiapine Fumarate [Seroquel] 100 mg PO HS 06/11/15 [History] SUMAtriptan Succinate [Imitrex] 100 mg PO AD PRN 06/11/15 [History] Aspirin [Lo-Dose Aspirin EC] 81 mg PO DAILY 10/10/17 [History] Buprenorphine HCl/Naloxone HCl [Suboxone 8 mg-2 mg Sl Film] 1 film SL BID [History] Lisinopril-HCTZ 20-12.5 [Prinzide 20-12.5] 1 tab PO DAILY 10/10/17 [History] Omeprazole [PriLOSEC] 20 mg PO DAILY 10/10/17 [History] 3 Allergy/AdvReac Type Severity Reaction Status Date / Time Penicillins Allergy Swelling Verified 10/10/17 08:33 of Lip/Tongue/Throat - Meds/Allergy Pre-op Review Medications Reviewed: Yes Allergies Reviewed: Yes Beta Blockers on Current Med List: Yes If Beta Blockers taken, Date/Time (Last Dose taken): today 0900 Anesthesia Results - Labs 10/09/17 22:59 10/10/17 01:57 Anesthesia Exam Selected Entries 10/10/17 11:51 Temperature 97.9 F Pulse Rate 96 Respiratory Rate 18 Blood Pressure 110/73 O2 Sat by Pulse Oximetry 95 Oxygen Flow Rate (LPM) 2.5 Weight: 91kg NPO (# of Hours): 8 - HEENT Pupil (Motor): EOMI Mallampati: III Teeth: Normal Oral Opening: Greater than 3 - TREE MARKER LOC: Oriented TREE MARKER Motor: Normal RUE, Normal LUE, Normal RLE, Normal LLE, Normal Face TREE MARKER Sensory: Normal: RUE, LUE, RLE, LLE, Face - Cardiac Rhythm: Regular Murmur: None - Pulmonary Breath Sounds: bilateral Clear Respiratory Effort: Symmetrical Anesthesia Assess/Plan ASA Score: 4 Modified Portillo Scale for Level of Consciousness: Cooperative, oriented, and tranquil Anesthetic Plan: MAC Monitoring Plan: Standard Monitors Recovery Plan: PACU (discussed MAC, agrees to proceed)
[2017-10-10] MEDS ORDERED: Bupivacaine/Clonidine Syringe 1 EACH SYRINGE ONE (15:48)
[2017-10-10] MEDS ORDERED: *HR* Propofol 200 MG/20 ML VIAL IVP ONE (15:56)
[2017-10-10] MEDS ORDERED: *HR* FentaNYL (PF) 100 MCG/2 ML VIAL ONE (15:57)
[2017-10-10] MEDS ORDERED: *HR* Midazolam HCl 2 MG/2 ML VIAL ONE (15:57)
[2017-10-10] MEDS ORDERED: Ondansetron 4 MG/2 ML VIAL ONE (15:58)
[2017-10-10] MEDS ORDERED: Dexamethasone 4 MG/ML VIAL ONE (15:58)
[2017-10-10] MEDS ORDERED: Lidocaine -MPF 2% 2 ML VIAL ONE (15:58)
[2017-10-10] MEDS ORDERED: Propofol 500 MG/50 ML INFUS..BTL ONE (16:34)
--- NOTE | 2017-10-10 17:51 | Electrocardiograph Report ---
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
--- NOTE | 2017-10-10 18:14 | Operative Note ---
Date of procedure: 10/10/17 Pre-op diagnosis: Osteomyelitis right calcaneus, infection right foot Post-op diagnosis: same Procedure: Irrigation and debridement with incision and drainage of heel ulcer of right foot. Bone biopsy calcaneus, right foot. Incision and drainage of abscess of the distal right foot. Implants: Iodoform packing Anesthesia: SCOOTER Surgeon: Kory Chahal Estimated blood loss (cc): 20 Specimen: Bone biopsy right calcaneus Condition: stable Disposition: PACU Procedure in Detail: The patient was administered IV antibiotics on the floor. The patient was transported to the operative room and placed on operating table. Following anesthesia the extremity was scrubbed prepped and draped in the usual aseptic fashion. A timeout was performed. An incision was made on the lateral aspect of the fifth metatarsal of the right foot and deepened through subcutaneous tissue with care taken to identify and retract all vital neurovascular structures. There was noted to be dog hair in the wound. Significant purulence was expressed from the site and the incision was approximately 3 cm long. Tissue was debrided consisting of epidermis, dermis, subcutaneous, fascia, tendon. An additional incision was made on the lateral aspect of the right foot in the area of the gas and purulence. The necrotic tissue surrounding the ulceration site and within the areas of infection were sharply debrided with a 15 blade scalpel and after aggressive debridement of the lateral aspect and plantar aspect of the right heel the wound bed measured approximately 5 cm in diameter and to the depth of the calcaneal bone. The type of tissue debrided included epidermis, dermis, subcutaneous, fascia, tendon, small portions of bone. On the plantar aspect of the calcaneus near the insertion of the plantar fascia there was noted to be a small sinus tract into the calcaneus, any crumbly necrotic appearing bone was sharply curetted out of the site and a misonix debrider was utilized to debride any nonviable necrotic tissue from both incision sites. Cultures were obtained. The site was irrigated and a bone biopsy was obtained as well. The bone biopsy was obtained from the calcaneus. Pulse irrigation was then used to clean the entire site and the sites were packed with iodoform gauze which will be changed every 6 hours. The patient tolerated the procedure and anesthesia well and was transported to the recovery room with vital signs stable and vascular status intact to both feet. The patient will be readmitted to the floor per anesthesia. The patient will remain nonweightbearing. Iodoform packing will be changed every 12 hours. Infectious disease consult will be needed for long-term management of IV antibiotics for osteomyelitis of the right calcaneus. We will likely wash the patient out again in a few days and apply a wound VAC. The patient will need to improve her A1c as it is currently 12 and was instructed to quit smoking, I instructed her that I do not think that it will heal if she continues on her current course. At this case this is a limb salvage procedure and the patient/family was instructed that amputation may be needed if the patient is unable to heal.
[2017-10-10] MEDS ORDERED: Insulin DETEMIR 100 UNIT/ML X5UNITS SQ SCH (21:00)
[2017-10-10] MEDS: (Buprenorphine Hcl/Naloxone Hcl [Suboxone 8 Mg-2 Mg S) SL SCH (21:47)
[2017-10-11] MEDS: Vancomycin 1,250 MG in D5% in Water 250 ML IVPB SCH (01:30)
[2017-10-11] MEDS: *HR* Heparin 5,000 UNIT/ML VIAL SQ SCH ×2 (05:26→16:45)
[2017-10-11] MEDS: Insulin LISPRO 300 UNITS/3 ML VIAL SQ SCH ×5 (05:43→16:23)
[2017-10-11 06:18] LABS: Basophils # 0.1 K/mcL (0.0-0.2); Basophils % 0.5 %; Eosinophils # 0.2 K/mcL (0.0-0.6); Eosinophils % 1.9 %; Hematocrit 24.9 % (35.3-44.9); Hemoglobin 8.3 g/dL (11.5-15.4); Immature Granulocytes % 0.9 % (0-4); Lymphocytes # 1.6 K/mcL (0.6-4.6); Lymphocytes % 15.2 %; Mean Corpuscular HGB Conc 33.3 g/dL (31.6-35.5); Mean Corpuscular Hemoglobin 30.5 pg (28.0-33.3); Mean Corpuscular Volume 91.5 fL (83.0-100.0); Mean Platelet Volume 9.1 fL (9.4-12.4); Monocytes # 0.9 K/mcL (0.0-1.3); Monocytes % 8.8 %; Neutrophils # 7.7 K/mcL (1.6-8.9); Platelet Count 322 K/mcL (140-400); Red Blood Count 2.72 M/mcL (3.82-4.97); Red Cell Distribution Width 13.2 % (11.5-14.5); Segmented Neutrophils % 72.7 %
[2017-10-11 06:39] LABS: Potassium 4.9 mEq/L (3.5-4.5)
[2017-10-11] MEDS: Nicotine 21 MG PATCH.TD24 TD SCH (08:56)
[2017-10-11] MEDS: Cefepime HCl 2,000 MG in Water for inj. (sterile) 20 ML IVP SCH ×2 (08:56→21:55)
[2017-10-11] MEDS: Clindamycin 900 MG/50 ML 900 MG/50 ML IV.SOLN IVPB SCH ×3 (08:57→23:30)
[2017-10-11] MEDS: Aspirin Enteric Coated 81 MG Tablet PO SCH (08:57)
[2017-10-11] MEDS: Gabapentin 300 MG CAPSULE PO SCH ×3 (08:57→21:54)
[2017-10-11] MEDS: Aspirin 81 MG TAB.CHEW PO SCH (08:57)
[2017-10-11] MEDS: (Buprenorphine Hcl/Naloxone Hcl [Suboxone 8 Mg-2 Mg S) SL SCH ×2 (08:58→22:07)
--- NOTE | 2017-10-11 11:31 | Podiatry Progress Note ---
Date of Encounter: 10/11/17 Time of Encounter: 09:00 - Assessment and Plan (1) Diabetes mellitus Current Visit: Yes Status: Chronic Qualifiers: Diabetes mellitus type: type 2 Diabetes mellitus complication status: with skin complications Diabetes mellitus complication detail: with foot ulcer Diabetes mellitus intermodal truck driver insulin use: with intermodal truck driver use Qualified Code(s) : E11.621 - Type 2 diabetes mellitus with foot ulcer; L97.509 - Non-pressure chronic ulcer of other part of unspecified foot with unspecified severity; L97.509 - Non-pressure chronic ulcer of other part of unspecified foot with unspecified severity; L97.509 - Non-pressure chronic ulcer of other part of unspecified foot with unspecified severity; L97.509 - Non-pressure chronic ulcer of other part of unspecified foot with unspecified severity; Z79.4 - intermediate (current) use of insulin; Z79.4 - assistant terminal manager (current) use of insulin; Z79.4 - intermediate (current) use of insulin; Z79.4 - intermediate (current) use of insulin (2) Peripheral neuropathy Current Visit: No Status: Chronic Qualifiers: Peripheral neuropathy type: polyneuropathy, unspecified Qualified Code(s): G62.9 - Polyneuropathy, unspecified (3) Acute kidney injury Current Visit: Yes Status: Acute (4) Diabetic foot ulcer Current Visit: Yes Status: Acute CT of right foot showed a large plantar and lateral hindfoot ulceration with extensive soft tissue gas. There is soft tissue gas extending to involve the calcaneus. Findings are consistent with gas-forming bacterial infection and osteomyelitis. Additional soft tissue gas within the lateral soft tissues of the midfoot consistent with additional site of gas-forming bacterial infection. S/p Irrigation and debridement with incision and drainage of heel ulcer of right foot. Bone biopsy calcaneus, right foot. Incision and drainage of abscess of the distal right foot by Dr. Chahal on 10/15. Decreased erythema noted today, two open wound to the right foot: right heel and lateral aspect of 5th metatarsal. No odor, no purulent drainage, moderate amount of serosanguineous drainage observed to dressing. WBC: 10.6, CRP: 218 Hgb A1C: 12 Plan: Dressing changed at bedside, continue dressing changes BID as ordered. Intraoperative cultures, wound cultures pending. Recommend Infectious Disease consult for Osteomyelitis of right calcaneus. Remain non weight bearing to RLE. Sessions to plan on taking patient back to surgery for a washout later on this week. Qualifiers: Diabetic foot ulcer location: heel Diabetes mellitus type: type 2 Laterality: right Non-pressure ulcer stage: with fat layer exposed Qualified Code(s): E11.621 - Type 2 diabetes mellitus with foot ulcer; L97.412 - Non-pressure chronic ulcer of right heel and midfoot with fat layer exposed; L97.412 - Non-pressure chronic ulcer of right heel and midfoot with fat layer exposed; L97.412 - Non-pressure chronic ulcer of right heel and midfoot with fat layer exposed; L97.412 - Non-pressure chronic ulcer of right heel and midfoot with fat layer exposed Subjective Principal diagnosis: Right foot infection Interval history: Patient is s/p Irrigation and debridement with incision and drainage of heel ulcer of right foot. Bone biopsy calcaneus, right foot, Incision and drainage of abscess of the distal right foot by Sessions on 10/10/17 for Osteomyelitis and gas-forming bacterial infection. Patient sitting up in bed with dressing intact for the right foot. Patient denies any pain, fever, chills , chest pain, shortness of breath, or calf pain. Objective - Vital Signs Vital Signs: Vital Signs Temp Pulse Resp BP Pulse Ox 10/11/17 11:18 97.8 F 91 18 113/76 96 10/11/17 07:33 97.4 F L 103 18 122/77 91 10/11/17 03:52 97.7 F 91 16 102/71 94 10/10/17 19:14 97.6 F 98 16 136/84 90 10/10/17 11:51 97.9 F 96 18 110/73 95 Intake and Output 10/10/17 10/11/17 10/11/17 23:59 07:59 15:59 Intake Total 20 / 20 50 / 50 Output Total 20 / 20 Balance 0 / 0 50 / 50 Intake: IV Fluids 20 / 20 50 / 50 Maxipime 2,000 MG In Water for 20 / 20 inj. (sterile) 20 ML @ 300 mls/ hr IVP Q12H [facility] Rx#:[id number] Cleocin Premix 900 MG/50 ML 900 50 / 50 mg In 50 ml @ 50 mls/hr IVPB Q8HR [facility] Rx#:[id number] Output: Estimated Blood Loss Other: Meal NPO Weight 98.792 kg Blood Glucose* 297 145 239 Patient Weight 10/11/17 23:59 Weight 98.792 kg - Exam Exam: General appearance: alert awake oriented X 3. Calm and pleasant, no acute distress.. Vascular: Right foot: Pedal pulses +2/4 DP/PT , No evidence of cyanosis, pallor or rubor, Edema graded at 2+/4, Skin Temperature warm, No calf pain with manual compression. capillary refill time is immediate to digits. Neurologic: Sensation diminished with light touch to foot. . Ulcer: Full thickness surgical wound to the right heel measuring 4 cm in length x 8 cm in width x 2 cm in depth, base of wound with red, white and yellow tissue , bone is exposed. moderate amount of serosanguineous drainage observed to dressing. Open surgical wound to the lateral aspect of the 5th metatarsal measuring 3.5 cm in length x 1 cm in width x 1.9 cm in depth, no purulent drainage, no odor, erythema is resolving. - Lab Result Diagrams: 10/11/17 05:39 10/11/17 05:39 Labs: Abnormal lab results RBC 2.72 M/mcL (3.82-4.97) L 10/11/17 05:39 Hgb 8.3 g/dL (11.5-15.4) L 10/11/17 05:39 Hct 24.9 % (35.3-44.9) L 10/11/17 05:39 MPV 9.1 fL (9.4-12.4) L 10/11/17 05:39 PT 14.3 Seconds (9.4-12.1) H 10/09/17 22:59 Potassium 4.9 mEq/L (3.5-4.5) H 10/11/17 05:39 BUN 42 mg/dL (7-20) H 10/11/17 05:39 Creatinine 1.44 mg/dL (0.57-1.11) H 10/11/17 05:39 Est GFR ( Amer) 47 (> 60) L 10/11/17 05:39 Est GFR (Non-Af Amer) 39 (> 60) L 10/11/17 05:39 BUN/Creatinine Ratio 29 (6-26) H 10/11/17 05:39 Glucose 130 mg/dL (70-99) H 10/11/17 05:39 POC Glucose 151 (58-89) H 10/10/17 11:54 Hemoglobin A1c 12.0 % (-5.6) H 10/09/17 22:59 Transferrin 93 mg/dL (180-382) L 10/10/17 01:57 Alkaline Phosphatase 146 Units/L (38-126) H 10/09/17 22:59 C-Reactive Protein 218 mg/L (Less than 5) H 10/10/17 13:50 Albumin 2.2 g/dL (3.5-5.0) L 10/09/17 22:59 Globulin 5.1 g/dL (2.4-3.5) H 10/09/17 22:59 Albumin/Globulin Ratio 0.4 (1.1-2.2) L 10/09/17 22:59 Triglycerides 300 mg/dL (< 150) H 10/10/17 01:57 VLDL Cholesterol, Calc 60 mg/dL (< 31) H 10/10/17 01:57 HDL Cholesterol 16 mg/dL (40-59) L 10/10/17 01:57 Cholesterol/HDL Ratio 8.2 (0-4.9) H 10/10/17 01:57 Urine Microscopic RBC 5-15 per hpf (0-3) H 10/09/17 23:55 Ur Squamous Epith Cells Many per lpf (None-Few) H 10/09/17 23:55 Microbiology, Last 48 Hours 10/10/17 01:57 Blood Culture - Preliminary Peripheral Venipuncture No growth. 10/10/17 01:57 Blood Culture - Preliminary Peripheral Venipuncture No growth. 10/10/17 01:20 Wound Culture - Preliminary Right Foot No pathogens isolated. Consult Discharge Plan - Plan Referrals: Alejandro Le DO [Primary Care Provider] -
--- NOTE | 2017-10-11 11:32 | Internal Med Progress Note ---
Date of Encounter: 10/11/17 Time of Encounter: 11:28 - Assessment and plan (1) Osteomyelitis Current Visit: Yes Status: Acute Assessment and plan: Continue Vanco, clinda, cefepime Podiatry recommednations noted s/p bone biopsy and culture, continue Clindamycin, vancomycin and Cefepime-Day 2 Will consult ID prior to discharge PICC line for prolonged antibiotics CT/CT foot RT wo con IMPRESSION: 1. Large plantar and lateral hindfoot ulceration with extensive soft tissue gas. There is soft tissue gas extending to involve the calcaneus. Findings are consistent with gas-forming bacterial infection and osteomyelitis. 2. Additional soft tissue gas within the lateral soft tissues of the midfoot consistent with additional site of gas-forming bacterial infection. Qualifiers: Osteomyelitis type: unspecified type Osteomyelitis location: foot Laterality: right Qualified Code(s): M86.9 - Osteomyelitis, unspecified (2) Diabetic foot ulcer Current Visit: Yes Status: Acute Assessment and plan: Gas gangrene, infected DM foot lcer Podiatry is following, s/p debridement and bone biopsy, POD 1 For wash out and wound Vac later per podiatry Continue Cllindamycin, Vancomcycin and Cefepime Continue wound care Wound culture was obtained, will follow CT/CT foot RT wo con IMPRESSION: 1. Large plantar and lateral hindfoot ulceration with extensive soft tissue gas. There is soft tissue gas extending to involve the calcaneus. Findings are consistent with gas-forming bacterial infection and osteomyelitis. 2. Additional soft tissue gas within the lateral soft tissues of the midfoot consistent with additional site of gas-forming bacterial infection. Qualifiers: Diabetic foot ulcer location: heel Diabetes mellitus type: type 2 Laterality: right Non-pressure ulcer stage: with fat layer exposed Qualified Code(s): E11.621 - Type 2 diabetes mellitus with foot ulcer; L97.412 - Non-pressure chronic ulcer of right heel and midfoot with fat layer exposed; L97.412 - Non-pressure chronic ulcer of right heel and midfoot with fat layer exposed; L97.412 - Non-pressure chronic ulcer of right heel and midfoot with fat layer exposed; L97.412 - Non-pressure chronic ulcer of right heel and midfoot with fat layer exposed (3) Gas gangrene Current Visit: Yes Status: Acute Assessment and plan: as above (4) HTN (hypertension) Current Visit: Yes Status: Chronic Assessment and plan: Controlled, continue home medications except lisinopril and hydrochlorothiazide due to acute kidney injury. Qualifiers: Hypertension type: essential hypertension Qualified Code(s): I10 - Essential (primary) hypertension (5) Depression Current Visit: Yes Status: Chronic Assessment and plan: Continue home medications. Qualifiers: Depression Type: unspecified Qualified Code(s): F32.9 - Major depressive disorder, single episode, unspecified (6) Anemia Current Visit: Yes Status: Chronic Assessment and plan: Chronic, possibly anemia of chronic disease. Hemoglobin is stable at 8.8. Continue to monitor. Qualifiers: Anemia type: unspecified type Qualified Code(s): D64.9 - Anemia, unspecified (7) Acute kidney injury Current Visit: Yes Status: Acute Assessment and plan: Improving, Continue IV fluid hydration, continue to monitor. avoid nephrotoxins. (8) Hyperlipidemia Current Visit: Yes Status: Chronic Assessment and plan: Continue home meds Qualifiers: Hyperlipidemia type: unspecified Qualified Code(s): E78.5 - Hyperlipidemia , unspecified (9) DVT prophylaxis Current Visit: Yes Status: Acute Assessment and plan: Heparin SQ (10) Diabetes mellitus Current Visit: Yes Status: Chronic Assessment and plan: FS not optimal goal is 140-180 Increase levemir to BID, add prandial insulin A1C is 12% Monitor FS ACHS ADA diet Qualifiers: Diabetes mellitus type: type 2 Diabetes mellitus complication status: with skin complications Diabetes mellitus complication detail: with foot ulcer Diabetes mellitus fdc insulin use: with community health nurse use Qualified Code(s) : E11.621 - Type 2 diabetes mellitus with foot ulcer; L97.509 - Non-pressure chronic ulcer of other part of unspecified foot with unspecified severity; L97.509 - Non-pressure chronic ulcer of other part of unspecified foot with unspecified severity; L97.509 - Non-pressure chronic ulcer of other part of unspecified foot with unspecified severity; L97.509 - Non-pressure chronic ulcer of other part of unspecified foot with unspecified severity; Z79.4 - longterm (current) use of insulin; Z79.4 - licensed life and health agent (current) use of insulin; Z79.4 - longterm (current) use of insulin; Z79.4 - licensed life and health agent (current) use of insulin - Subjective Interval history: Seen and evaluated at the bedside. 46-year-old female with uncontrolled type 2 diabetes mellitus with history of chronic right foot ulcer. Patient is admitted and being managed for infected and gangrenous diabetic foot ulcer, as well as acute kidney injury and Right calcaneal OM She is POD 1 s/p debridement, intra-op findings included dog hair in her wound, deep presence of pus and gangrene, bone biopsies and cultures were taken She is denying new complains today and states she feels slightly improved - Constitutional Vitals: Temp Pulse Resp BP Pulse Ox 97.8 F 91 18 113/76 96 10/11/17 11:18 10/11/17 11:18 10/11/17 11:18 10/11/17 11:18 10/11/17 11:18 General appearance: Present: cooperative, A&O X 3, pleasant, no acute distress, obese, answers questions appropriately - Head Head exam: Present: atraumatic, normocephalic - Eye Eye exam: Present: PERRL, conjuntiva pink, sclera anicteric Pupils: Present: PERRL - Neck Neck exam general surgery: Present: supple, trachea midline. Absent: lymphadenopathy - Respiratory Respiratory exam: Present: CTAB. Absent: accessory muscle use, rales, rhonchi, wheezes - Cardiovascular Cardiovascular exam: Present: RRR, +S1, +S2. Absent: diastolic murmur, gallop, rubs, systolic murmur - GI/Abdominal GI/Abdominal exam: Present: normal bowel sounds, soft, no peritoneal signs. Absent: distended, tenderness - Extremities Exam Extremities exam: Present: warm, radial pulses palpable and symmetrical. Absent : calf tenderness, cyanotic, pedal edema Additional comments: Right heel with clean wound dressing , dry, Pulses are present and foot is warm LEft foot s/p Big toe amputation - Neurological Exam Neurological exam: Present: alert, CN II-XII intact, oriented X3, no focal deficits. Absent: pronater drift, facial droop, speech deficit - Skin Skin exam: Present: dry, intact Internal Medicine: Result - Labs CBC & Chem 7: 10/11/17 05:39 10/11/17 05:39 Labs: Short CBC 10/11/17 Range/Units 05:39 WBC 10.6 (4.3-11.1) K/mcL Hgb 8.3 L (11.5-15.4) g/dL Hct 24.9 L (35.3-44.9) % Plt Count 322 (140-400) K/mcL Neutrophils # 7.7 (1.6-8.9) K/mcL [facility] 10/11/17 05:39 Sodium 136 Potassium 4.9 H Chloride 107 Carbon Dioxide 21 BUN 42 H Creatinine 1.44 H Glucose 130 H Calcium 9.0 Cardiac Enzymes 10/10/17 Range/Units 13:50 Troponin I 0.03 (0-0.03) ng/mL - ABG Interpretation ABG results: PT/INR, D-dimer PT 14.3 Seconds (9.4-12.1) H 10/09/17 22:59 - Impressions Impressions Foot CT 10/10/17 10:34 IMPRESSION: 1. Large plantar and lateral hindfoot ulceration with extensive soft tissue gas. There is soft tissue gas extending to involve the calcaneus. Findings are consistent with gas-forming bacterial infection and osteomyelitis. 2. Additional soft tissue gas within the lateral soft tissues of the midfoot consistent with additional site of gas-forming bacterial infection. D/ / 10/10/2017 12:43:51 Edinson Paris MD / lidia Interpreting Provider: Edinson Paris MD Consult Discharge Plan - Plan Referrals: Alejandro Le DO [Primary Care Provider] -
[2017-10-11] MEDS: *HR* Morphine 2 MG/ML SYRINGE IVP PRN ×2 (12:21→21:56)
[2017-10-11] MEDS: Insulin DETEMIR 100 UNIT/ML X5UNITS SQ SCH (21:55)
[2017-10-12 00:20] LABS: Basophils # 0.1 K/mcL (0.0-0.2); Basophils % 0.4 %; Eosinophils # 0.2 K/mcL (0.0-0.6); Hematocrit 22.9 % (35.3-44.9); Hemoglobin 7.7 g/dL (11.5-15.4); Immature Granulocytes % 1.4 % (0-4); Lymphocytes % 17.3 %; Mean Corpuscular HGB Conc 33.6 g/dL (31.6-35.5); Mean Corpuscular Hemoglobin 30.7 pg (28.0-33.3); Mean Corpuscular Volume 91.2 fL (83.0-100.0); Mean Platelet Volume 8.8 fL (9.4-12.4); Monocytes # 0.8 K/mcL (0.0-1.3); Monocytes % 7.3 %; Neutrophils # 8.3 K/mcL (1.6-8.9); Platelet Count 290 K/mcL (140-400); Red Blood Count 2.51 M/mcL (3.82-4.97); Red Cell Distribution Width 13.1 % (11.5-14.5); Segmented Neutrophils % 71.6 %
[2017-10-12 00:31] LABS: Calcium 8.6 mg/dL (8.6-10.8); Potassium 4.9 mEq/L (3.5-4.5)
[2017-10-12] MEDS: Vancomycin 1,250 MG in D5% in Water 250 ML IVPB SCH (01:12)
[2017-10-12] MEDS: Insulin LISPRO 300 UNITS/3 ML VIAL SQ SCH ×8 (01:12→17:41)
[2017-10-12] MEDS: Vancomycin 1,000 MG in D5% in Water 250 ML IVPB SCH (01:29)
[2017-10-12] MEDS: *HR* Heparin 5,000 UNIT/ML VIAL SQ SCH ×2 (06:12→17:40)
[2017-10-12] MEDS: Cefepime HCl 2,000 MG in Water for inj. (sterile) 20 ML IVP SCH ×2 (10:07→20:37)
[2017-10-12] MEDS: Gabapentin 300 MG CAPSULE PO SCH ×3 (10:07→20:37)
[2017-10-12] MEDS: Aspirin 81 MG TAB.CHEW PO SCH (10:07)
[2017-10-12] MEDS: Clindamycin 900 MG/50 ML 900 MG/50 ML IV.SOLN IVPB SCH ×2 (10:08→15:34)
[2017-10-12] MEDS: (Buprenorphine Hcl/Naloxone Hcl [Suboxone 8 Mg-2 Mg S) SL SCH ×2 (10:08→20:35)
[2017-10-12] MEDS: Nicotine 21 MG PATCH.TD24 TD SCH (10:08)
[2017-10-12] MEDS: Aspirin Enteric Coated 81 MG Tablet PO SCH (10:08)
[2017-10-12] MEDS: *HR* Morphine 2 MG/ML SYRINGE IVP PRN ×2 (10:25→22:08)
--- NOTE | 2017-10-12 11:53 | Internal Med Progress Note ---
Date of Encounter: 10/12/17 Time of Encounter: 11:51 - Assessment and plan (1) Osteomyelitis Current Visit: Yes Status: Acute Assessment and plan: Continue Vanco, clinda, cefepime Podiatry recommendations noted s/p bone biopsy and culture, growing GPC continue Clindamycin, vancomycin and Cefepime-Day 3 Will consult ID prior to discharge, service not available today PICC line placed for prolonged antibiotics vanco trough is therapeutic CT/CT foot RT wo con IMPRESSION: 1. Large plantar and lateral hindfoot ulceration with extensive soft tissue gas. There is soft tissue gas extending to involve the calcaneus. Findings are consistent with gas-forming bacterial infection and osteomyelitis. 2. Additional soft tissue gas within the lateral soft tissues of the midfoot consistent with additional site of gas-forming bacterial infection. Qualifiers: Osteomyelitis type: unspecified type Osteomyelitis location: foot Laterality: right Qualified Code(s): M86.9 - Osteomyelitis, unspecified (2) Diabetic foot ulcer Current Visit: Yes Status: Acute Assessment and plan: Gas gangrene, infected DM foot lcer Podiatry is following, s/p debridement and bone biopsy, POD 1 For wash out and wound Vac later per podiatry Continue Cllindamycin, Vancomcycin and Cefepime CT/CT foot RT wo con IMPRESSION: 1. Large plantar and lateral hindfoot ulceration with extensive soft tissue gas. There is soft tissue gas extending to involve the calcaneus. Findings are consistent with gas-forming bacterial infection and osteomyelitis. 2. Additional soft tissue gas within the lateral soft tissues of the midfoot consistent with additional site of gas-forming bacterial infection. Qualifiers: Diabetic foot ulcer location: heel Diabetes mellitus type: type 2 Laterality: right Non-pressure ulcer stage: with fat layer exposed Qualified Code(s): E11.621 - Type 2 diabetes mellitus with foot ulcer; L97.412 - Non-pressure chronic ulcer of right heel and midfoot with fat layer exposed; L97.412 - Non-pressure chronic ulcer of right heel and midfoot with fat layer exposed; L97.412 - Non-pressure chronic ulcer of right heel and midfoot with fat layer exposed; L97.412 - Non-pressure chronic ulcer of right heel and midfoot with fat layer exposed (3) Gas gangrene Current Visit: Yes Status: Acute Assessment and plan: as above (4) HTN (hypertension) Current Visit: Yes Status: Chronic Assessment and plan: Controlled, continue home medications except lisinopril and hydrochlorothiazide due to acute kidney injury. Qualifiers: Hypertension type: essential hypertension Qualified Code(s): I10 - Essential (primary) hypertension (5) Depression Current Visit: Yes Status: Chronic Assessment and plan: Continue home medications. Qualifiers: Depression Type: unspecified Qualified Code(s): F32.9 - Major depressive disorder, single episode, unspecified (6) Anemia Current Visit: Yes Status: Chronic Assessment and plan: Chronic, possibly anemia of chronic disease. Hemoglobin drop to 7.7 today, with leukocytosis, possibly from surgery Type and screen is done Continue to monitor, will transfuse for Hb <7. Qualifiers: Anemia type: unspecified type Qualified Code(s): D64.9 - Anemia, unspecified (7) Acute kidney injury Current Visit: Yes Status: Acute Assessment and plan: Improving, Continue IV fluid hydration, continue to monitor. avoid nephrotoxins. (8) Hyperlipidemia Current Visit: Yes Status: Chronic Assessment and plan: Continue home meds Qualifiers: Hyperlipidemia type: unspecified Qualified Code(s): E78.5 - Hyperlipidemia , unspecified (9) DVT prophylaxis Current Visit: Yes Status: Acute Assessment and plan: Heparin SQ (10) Diabetes mellitus Current Visit: Yes Status: Chronic Assessment and plan: FS not optimal goal is 140-180 Increase levemir to BID,increased prandial insulin A1C is 12% Monitor FS ACHS ADA diet Qualifiers: Diabetes mellitus type: type 2 Diabetes mellitus complication status: with skin complications Diabetes mellitus complication detail: with foot ulcer Diabetes mellitus intermediate teacher insulin use: with alf use Qualified Code(s) : E11.621 - Type 2 diabetes mellitus with foot ulcer; L97.509 - Non-pressure chronic ulcer of other part of unspecified foot with unspecified severity; L97.509 - Non-pressure chronic ulcer of other part of unspecified foot with unspecified severity; L97.509 - Non-pressure chronic ulcer of other part of unspecified foot with unspecified severity; L97.509 - Non-pressure chronic ulcer of other part of unspecified foot with unspecified severity; Z79.4 - assisted (current) use of insulin; Z79.4 - assistant terminal manager (current) use of insulin; Z79.4 - assisted (current) use of insulin; Z79.4 - assistant terminal manager (current) use of insulin - Subjective Interval history: Seen and evaluated at the bedside. 46-year-old female with uncontrolled type 2 diabetes mellitus Patient is admitted and being managed for infected and gangrenous diabetic foot ulcer, as well as acute kidney injury and Right calcaneal OM She is POD 2 s/p debridement, intra-op findings included dog hair in her wound, deep presence of pus and gangrene, bone biopsies and cultures were taken She is denying new complains today and states she feels slightly improved Her renal function is improving Wound and bone culture growing GPC Podiatry is following - Constitutional Vitals: Temp Pulse Resp BP Pulse Ox 98.2 F 89 15 115/76 93 10/12/17 10:52 10/12/17 10:52 10/12/17 10:52 10/12/17 10:52 10/12/17 10:52 General appearance: Present: cooperative, A&O X 3, pleasant, no acute distress, obese, answers questions appropriately - Head Head exam: Present: atraumatic, normocephalic - Eye Eye exam: Present: PERRL, conjuntiva pink, sclera anicteric Pupils: Present: PERRL - Neck Neck exam general surgery: Present: supple, trachea midline. Absent: lymphadenopathy - Respiratory Respiratory exam: Present: CTAB. Absent: accessory muscle use, rales, rhonchi, wheezes - Cardiovascular Cardiovascular exam: Present: RRR, +S1, +S2. Absent: diastolic murmur, gallop, rubs, systolic murmur - GI/Abdominal GI/Abdominal exam: Present: normal bowel sounds, soft, no peritoneal signs. Absent: distended, tenderness - Extremities Exam Extremities exam: Present: warm, radial pulses palpable and symmetrical. Absent : calf tenderness, cyanotic, pedal edema Additional comments: Wound dressing clean and dry patient has no sensory feeling on her toes - Neurological Exam Neurological exam: Present: alert, CN II-XII intact, oriented X3, no focal deficits. Absent: pronater drift, facial droop, speech deficit - Skin Skin exam: Present: dry, intact Internal Medicine: Result - Labs CBC & Chem 7: 10/12/17 00:10 10/12/17 00:10 Labs: Short CBC 10/12/17 Range/Units 00:10 WBC 11.5 H (4.3-11.1) K/mcL Hgb 7.7 L (11.5-15.4) g/dL Hct 22.9 L (35.3-44.9) % Plt Count 290 (140-400) K/mcL Neutrophils # 8.3 (1.6-8.9) K/mcL BMP 10/12/17 00:10 Sodium 134 L Potassium 4.9 H Chloride 105 Carbon Dioxide 21 BUN 36 H Creatinine 1.38 H Glucose 294 H Calcium 8.6 - ABG Interpretation ABG results: PT/INR, D-dimer PT 14.3 Seconds (9.4-12.1) H 10/09/17 22:59 Consult Discharge Plan - Plan Referrals: Alejandro Le DO [Primary Care Provider] -
--- NOTE | 2017-10-12 12:48 | Podiatry Progress Note ---
Date of Encounter: 10/12/17 Time of Encounter: 12:15 - Assessment and Plan (1) Diabetes mellitus Current Visit: Yes Status: Chronic Qualifiers: Diabetes mellitus type: type 2 Diabetes mellitus complication status: with skin complications Diabetes mellitus complication detail: with foot ulcer Diabetes mellitus intermediate project manager insulin use: with intermediate project manager use Qualified Code(s) : E11.621 - Type 2 diabetes mellitus with foot ulcer; L97.509 - Non-pressure chronic ulcer of other part of unspecified foot with unspecified severity; L97.509 - Non-pressure chronic ulcer of other part of unspecified foot with unspecified severity; L97.509 - Non-pressure chronic ulcer of other part of unspecified foot with unspecified severity; L97.509 - Non-pressure chronic ulcer of other part of unspecified foot with unspecified severity; Z79.4 - [facility] (current) use of insulin; Z79.4 - intermediate project manager (current) use of insulin; Z79.4 - [facility] (current) use of insulin; Z79.4 - [facility] (current) use of insulin (2) Peripheral neuropathy Current Visit: No Status: Chronic Qualifiers: Peripheral neuropathy type: polyneuropathy, unspecified Qualified Code(s): G62.9 - Polyneuropathy, unspecified (3) Acute kidney injury Current Visit: Yes Status: Acute (4) Diabetic foot ulcer Current Visit: Yes Status: Acute CT of right foot showed a large plantar and lateral hindfoot ulceration with extensive soft tissue gas. There is soft tissue gas extending to involve the calcaneus. Findings are consistent with gas-forming bacterial infection and osteomyelitis. Additional soft tissue gas within the lateral soft tissues of the midfoot consistent with additional site of gas-forming bacterial infection. S/p Irrigation and debridement with incision and drainage of heel ulcer of right foot. Bone biopsy calcaneus, right foot. Incision and drainage of abscess of the distal right foot by Sessions on 10/15. Dressing changed by nurse prior to my arrival, per nurse no purulent drainage observed. WBC: 11.5, CRP: 218 Hgb A1C: 12 Plan: Continue dressing changes BID as ordered. Bone biopsy and wound cultures growing GPC. Recommend Infectious Disease consult for antibiotic therapy. Will order and ESR. Remain non weight bearing to RLE. Sessions to plan on taking patient back to surgery for a washout most likely tomorrow or Monday. Qualifiers: Diabetic foot ulcer location: heel Diabetes mellitus type: type 2 Laterality: right Non-pressure ulcer stage: with fat layer exposed Qualified Code(s): E11.621 - Type 2 diabetes mellitus with foot ulcer; L97.412 - Non-pressure chronic ulcer of right heel and midfoot with fat layer exposed; L97.412 - Non-pressure chronic ulcer of right heel and midfoot with fat layer exposed; L97.412 - Non-pressure chronic ulcer of right heel and midfoot with fat layer exposed; L97.412 - Non-pressure chronic ulcer of right heel and midfoot with fat layer exposed Subjective Principal diagnosis: Right foot infection Interval history: Patient is s/p Irrigation and debridement with incision and drainage of heel ulcer of right foot. Bone biopsy calcaneus, right foot, Incision and drainage of abscess of the distal right foot by Dr. Chahal on 10/10/17 for Osteomyelitis and gas-forming bacterial infection. Patient sitting up in bed with dressing intact for the right foot. Patient denies any pain, fever, chills , chest pain, shortness of breath, or calf pain. Patient states she is feeling better today. Objective - Vital Signs Vital Signs: Vital Signs Temp Pulse Resp BP Pulse Ox 10/12/17 10:52 98.2 F 89 15 115/76 93 10/12/17 09:57 93 10/12/17 07:16 98.3 F 99 16 124/74 94 10/12/17 03:10 98.6 F 93 17 94/62 95 10/11/17 23:09 99.5 F 99 16 105/68 92 10/11/17 19:04 98.9 F 105 16 113/70 92 Intake and Output 10/11/17 10/12/17 10/12/17 23:59 07:59 15:59 Intake Total 310 / 310 50 / 50 240 / 240 Output Total 350 / 350 Balance 310 / 310 -300 / -300 240 / 240 Intake: IV Fluids 70 / 70 50 / 50 Maxipime 2,000 MG In Water for 20 / 20 inj. (sterile) 20 ML @ 300 mls/ hr IVP Q12H [facility] Rx#:[id number] Cleocin Premix 900 MG/50 ML 900 50 / 50 50 / 50 mg In 50 ml @ 50 mls/hr IVPB Q8HR [facility] Rx#:[id number] Oral 240 / 240 240 / 240 Output: Urine 350 / 350 Other: Meal Dinner Breakfast Percent of Meal Consumed 100% 80% # Voids 1 Weight 96.615 kg Blood Glucose* 303 145 257 Patient Weight 10/12/17 23:59 Weight 96.615 kg - Exam Exam: General appearance: alert awake oriented X 3. Calm and pleasant, no acute distress.. Vascular: Right foot: No evidence of cyanosis, pallor or rubor, Edema graded at 2+/4, Skin Temperature warm, No calf pain with manual compression. capillary refill time is immediate to digits. Neurologic: Sensation diminished with light touch to foot. . Ulcer: Dressing dry and intact, toes are pink warm and dry. No erythema ascending from dressing. no odor. - Lab Result Diagrams: 10/12/17 00:10 10/12/17 00:10 Labs: Abnormal lab results WBC 11.5 K/mcL (4.3-11.1) H 10/12/17 00:10 RBC 2.51 M/mcL (3.82-4.97) L 10/12/17 00:10 Hgb 7.7 g/dL (11.5-15.4) L 10/12/17 00:10 Hct 22.9 % (35.3-44.9) L 10/12/17 00:10 MPV 8.8 fL (9.4-12.4) L 10/12/17 00:10 PT 14.3 Seconds (9.4-12.1) H 10/09/17 22:59 Sodium 134 mEq/L (136-145) L 10/12/17 00:10 Potassium 4.9 mEq/L (3.5-4.5) H 10/12/17 00:10 BUN 36 mg/dL (7-20) H 10/12/17 00:10 Creatinine 1.38 mg/dL (0.57-1.11) H 10/12/17 00:10 Est GFR ( Amer) 50 (> 60) L 10/12/17 00:10 Est GFR (Non-Af Amer) 41 (> 60) L 10/12/17 00:10 Glucose 294 mg/dL (70-99) H 10/12/17 00:10 POC Glucose 303 (58-89) H 10/11/17 23:58 Hemoglobin A1c 12.0 % (-5.6) H 10/09/17 22:59 Transferrin 93 mg/dL (180-382) L 10/10/17 01:57 Alkaline Phosphatase 146 Units/L (38-126) H 10/09/17 22:59 C-Reactive Protein 218 mg/L (Less than 5) H 10/10/17 13:50 Albumin 2.2 g/dL (3.5-5.0) L 10/09/17 22:59 Globulin 5.1 g/dL (2.4-3.5) H 10/09/17 22:59 Albumin/Globulin Ratio 0.4 (1.1-2.2) L 10/09/17 22:59 Triglycerides 300 mg/dL (< 150) H 10/10/17 01:57 VLDL Cholesterol, Calc 60 mg/dL (< 31) H 10/10/17 01:57 HDL Cholesterol 16 mg/dL (40-59) L 10/10/17 01:57 Cholesterol/HDL Ratio 8.2 (0-4.9) H 10/10/17 01:57 Urine Microscopic RBC 5-15 per hpf (0-3) H 10/09/17 23:55 Ur Squamous Epith Cells Many per lpf (None-Few) H 10/09/17 23:55 Microbiology, Last 48 Hours 10/10/17 17:45 Surgical Biopsy Culture - Preliminary Right Foot Gram Positive Cocci 10/10/17 01:20 Wound Culture - Preliminary Right Foot Gram Positive Cocci 10/10/17 01:57 Blood Culture - Preliminary Peripheral Venipuncture No growth. 10/10/17 01:57 Blood Culture - Preliminary Peripheral Venipuncture No growth. Consult Discharge Plan - Plan Referrals: Alejandro Le DO [Primary Care Provider] -
[2017-10-12] MEDS: Insulin DETEMIR 100 UNIT/ML X5UNITS SQ SCH (20:37)
[2017-10-13] MEDS: Clindamycin 900 MG/50 ML 900 MG/50 ML IV.SOLN IVPB SCH ×2 (00:48→09:44)
[2017-10-13] MEDS: Insulin LISPRO 300 UNITS/3 ML VIAL SQ SCH ×7 (01:08→16:16)
[2017-10-13] MEDS: Vancomycin 1,000 MG in D5% in Water 250 ML IVPB SCH (01:23)
[2017-10-13] MEDS: *HR* Heparin 5,000 UNIT/ML VIAL SQ SCH ×2 (05:37→16:16)
[2017-10-13 06:11] LABS: Basophils # 0.1 K/mcL (0.0-0.2); Basophils % 0.6 %; Eosinophils # 0.4 K/mcL (0.0-0.6); Eosinophils % 3.1 %; Hematocrit 24.4 % (35.3-44.9); Hemoglobin 8.1 g/dL (11.5-15.4); Immature Granulocytes % 4.7 % (0-4); Lymphocytes # 2.3 K/mcL (0.6-4.6); Lymphocytes % 19.3 %; Mean Corpuscular HGB Conc 33.2 g/dL (31.6-35.5); Mean Corpuscular Hemoglobin 30.7 pg (28.0-33.3); Mean Corpuscular Volume 92.4 fL (83.0-100.0); Mean Platelet Volume 9.2 fL (9.4-12.4); Monocytes # 0.8 K/mcL (0.0-1.3); Monocytes % 6.8 %; Neutrophils # 7.9 K/mcL (1.6-8.9); Nucleated Red Blood Cells 0.2 /100 WBC (0); Platelet Count 340 K/mcL (140-400); Red Blood Count 2.64 M/mcL (3.82-4.97); Red Cell Distribution Width 13.3 % (11.5-14.5); Segmented Neutrophils % 65.5 %
[2017-10-13 06:19] LABS: BUN/Creatinine Ratio 31 (6-26); Blood Urea Nitrogen 31 mg/dL (7-20); Calcium 8.5 mg/dL (8.6-10.8); Carbon Dioxide 19 mEq/L (19-29); Chloride 108 mEq/L (98-109); Glucose 269 mg/dL (70-99); Osmolality,Calculated 298 (280-300); Potassium 4.6 mEq/L (3.5-4.5); Sodium 136 mEq/L (136-145); eGFR For African Americans > 60 (> 60); eGFR For Non-African Americans 59 (> 60)
[2017-10-13] MEDS ORDERED: Aminoglycoside Consult 1 EACH MC ONE (08:24)
[2017-10-13] MEDS: Cefepime HCl 2,000 MG in Water for inj. (sterile) 20 ML IVP SCH (09:43)
[2017-10-13] MEDS: Gabapentin 300 MG CAPSULE PO SCH ×3 (09:44→20:10)
[2017-10-13] MEDS: Nicotine 21 MG PATCH.TD24 TD SCH (09:44)
[2017-10-13] MEDS: Aspirin Enteric Coated 81 MG Tablet PO SCH (09:44)
[2017-10-13] MEDS: Aspirin 81 MG TAB.CHEW PO SCH (09:57)
[2017-10-13] MEDS: (Buprenorphine Hcl/Naloxone Hcl [Suboxone 8 Mg-2 Mg S) SL SCH ×2 (09:58→20:10)
[2017-10-13] MEDS: *HR* Morphine 2 MG/ML SYRINGE IVP PRN ×2 (10:09→22:16)
--- NOTE | 2017-10-13 10:35 | Internal Med Progress Note ---
Date of Encounter: 10/13/17 Time of Encounter: 10:32 - Assessment and plan (1) Osteomyelitis Current Visit: Yes Status: Acute Assessment and plan: Continue Vanco, clinda, cefepime Podiatry recommendations noted s/p bone biopsy and culture, growing GPC continue vancomycin and Cefepime-Day 4 D/C Clindamycn based on resistance of strep mitis Will consult ID today, Danielle Ovalle was called, she will see the patient PICC line placed for prolonged antibiotics vanco trough is therapeutic CT/CT foot RT wo con IMPRESSION: 1. Large plantar and lateral hindfoot ulceration with extensive soft tissue gas. There is soft tissue gas extending to involve the calcaneus. Findings are consistent with gas-forming bacterial infection and osteomyelitis. 2. Additional soft tissue gas within the lateral soft tissues of the midfoot consistent with additional site of gas-forming bacterial infection. Qualifiers: Osteomyelitis type: unspecified type Osteomyelitis location: foot Laterality: right Qualified Code(s): M86.9 - Osteomyelitis, unspecified (2) Diabetic foot ulcer Current Visit: Yes Status: Acute Assessment and plan: Gas gangrene, infected DM foot lcer Podiatry is following, s/p debridement and bone biopsy, POD 3 For wash out and wound Vac later per podiatry Continue Vancomcycin and Cefepime CT/CT foot RT wo con IMPRESSION: 1. Large plantar and lateral hindfoot ulceration with extensive soft tissue gas. There is soft tissue gas extending to involve the calcaneus. Findings are consistent with gas-forming bacterial infection and osteomyelitis. 2. Additional soft tissue gas within the lateral soft tissues of the midfoot consistent with additional site of gas-forming bacterial infection. Qualifiers: Diabetic foot ulcer location: heel Diabetes mellitus type: type 2 Laterality: right Non-pressure ulcer stage: with fat layer exposed Qualified Code(s): E11.621 - Type 2 diabetes mellitus with foot ulcer; L97.412 - Non-pressure chronic ulcer of right heel and midfoot with fat layer exposed; L97.412 - Non-pressure chronic ulcer of right heel and midfoot with fat layer exposed; L97.412 - Non-pressure chronic ulcer of right heel and midfoot with fat layer exposed; L97.412 - Non-pressure chronic ulcer of right heel and midfoot with fat layer exposed (3) Gas gangrene Current Visit: Yes Status: Acute Assessment and plan: as above (4) HTN (hypertension) Current Visit: Yes Status: Chronic Assessment and plan: Controlled, continue home medications except lisinopril and hydrochlorothiazide due to acute kidney injury. Qualifiers: Hypertension type: essential hypertension Qualified Code(s): I10 - Essential (primary) hypertension (5) Depression Current Visit: Yes Status: Chronic Assessment and plan: Continue home medications. Qualifiers: Depression Type: unspecified Qualified Code(s): F32.9 - Major depressive disorder, single episode, unspecified (6) Anemia Current Visit: Yes Status: Chronic Assessment and plan: Chronic, possibly anemia of chronic disease. Hemoglobin stable at 8, continue to monitor Type and screen is done Continue to monitor, will transfuse for Hb <7. Qualifiers: Anemia type: unspecified type Qualified Code(s): D64.9 - Anemia, unspecified (7) Acute kidney injury Current Visit: Yes Status: Resolved Assessment and plan: Resolved, renal function is back to baseline (8) Hyperlipidemia Current Visit: Yes Status: Chronic Assessment and plan: Continue home meds Qualifiers: Hyperlipidemia type: unspecified Qualified Code(s): E78.5 - Hyperlipidemia , unspecified (9) DVT prophylaxis Current Visit: Yes Status: Acute Assessment and plan: Heparin SQ (10) Diabetes mellitus Current Visit: Yes Status: Chronic Assessment and plan: FS not optimal goal is 140-180 Increase levemir to BID,increased prandial insulin A1C is 12% Monitor FS ACHS ADA diet Qualifiers: Diabetes mellitus type: type 2 Diabetes mellitus complication status: with skin complications Diabetes mellitus complication detail: with foot ulcer Diabetes mellitus [facility] insulin use: with exterminator helper use Qualified Code(s) : E11.621 - Type 2 diabetes mellitus with foot ulcer; L97.509 - Non-pressure chronic ulcer of other part of unspecified foot with unspecified severity; L97.509 - Non-pressure chronic ulcer of other part of unspecified foot with unspecified severity; L97.509 - Non-pressure chronic ulcer of other part of unspecified foot with unspecified severity; L97.509 - Non-pressure chronic ulcer of other part of unspecified foot with unspecified severity; Z79.4 - retirement (current) use of insulin; Z79.4 - retirement (current) use of insulin; Z79.4 - retirement (current) use of insulin; Z79.4 - retirement (current) use of insulin - Subjective Interval history: Seen and evaluated at the bedside. 46-year-old female with uncontrolled type 2 diabetes mellitus Patient is admitted and being managed for infected and gangrenous diabetic foot ulcer, as well as acute kidney injury and Right calcaneal OM She is POD 3 s/p debridement, intra-op findings included dog hair in her wound, deep presence of pus and gangrene, bone biopsies and cultures were taken She is denying new complains today and states she feels slightly improved Her renal function is back to baseline Wound culture growing Strep mitis , resistant to clindamycin, will discontinue Clinda Bone biopsy with GPC, sensitivity pending, continue Vanco and Cefepime Podiatry is following, for washout and wound Vac placement today 10/13 We will de-escalate based on final sensitivity of bone biopsy - Constitutional Vitals: Temp Pulse Resp BP Pulse Ox 98.3 F 98 16 128/81 94 10/13/17 07:24 10/13/17 07:24 10/13/17 07:24 10/13/17 07:24 10/13/17 07:24 General appearance: Present: cooperative, A&O X 3, pleasant, no acute distress, obese, answers questions appropriately - Head Head exam: Present: atraumatic, normocephalic - Eye Eye exam: Present: PERRL, conjuntiva pink, sclera anicteric Pupils: Present: PERRL - Neck Neck exam general surgery: Present: supple, trachea midline. Absent: lymphadenopathy - Respiratory Respiratory exam: Present: CTAB. Absent: accessory muscle use, rales, rhonchi, wheezes - Cardiovascular Cardiovascular exam: Present: RRR, +S1, +S2. Absent: diastolic murmur, gallop, rubs, systolic murmur - GI/Abdominal GI/Abdominal exam: Present: normal bowel sounds, soft, no peritoneal signs. Absent: distended, tenderness - Extremities Exam Additional comments: wound dressing clean and dry - Neurological Exam Neurological exam: Present: alert, CN II-XII intact, oriented X3, no focal deficits. Absent: pronater drift, facial droop, speech deficit - Skin Skin exam: Present: dry, intact Internal Medicine: Result - Labs CBC & Chem 7: 10/13/17 05:40 10/13/17 05:40 Labs: Short CBC 10/13/17 Range/Units 05:40 WBC 12.0 H (4.3-11.1) K/mcL Hgb 8.1 L (11.5-15.4) g/dL Hct 24.4 L (35.3-44.9) % Plt Count 340 (140-400) K/mcL Neutrophils # 7.9 (1.6-8.9) K/mcL BMP 10/13/17 05:40 Sodium 136 Potassium 4.6 H Chloride 108 Carbon Dioxide 19 BUN 31 H Creatinine 1.01 Glucose 269 H Calcium 8.5 L - ABG Interpretation ABG results: PT/INR, D-dimer PT 14.3 Seconds (9.4-12.1) H 10/09/17 22:59 Consult Discharge Plan - Plan Referrals: Alejandro Le DO [Primary Care Provider] -
--- NOTE | 2017-10-13 13:41 | Infectious Disease Consult ---
Date of Encounter: 10/13/17 Time of Encounter: 13:36 Assessment and Plan (1) Sepsis Status: Acute Assessment and plan: The patient had two SIRS criteria on admission with ROGER. Likely secondary to right foot infection. Improved. WBC trending down. Tachycardia has resolved. Renal function has normalized. Blood cultures drawn 10/10/17 are NGTD x 2 sets. Qualifiers: Sepsis type: sepsis due to unspecified organism Qualified Code(s): A41.9 - Sepsis, unspecified organism (2) Osteomyelitis Status: Acute Assessment and plan: Location: Right foot calcaneus. Causative organism: Strep mitis, but concern for anaerobes due to soft tissue gas. Likely secondary to right heel ulcer. X-ray of the right foot showed soft tissue gas, but no OM. CT of the foot showed OM and extensive ST gas. Podiatry consulted. Status post I & D with incision and drainage of the right heel ulcer with bone biopsy of the calcaneus and I & D of the right distal foot abscess 10/10/[address] Chahal. Operative note reviewed. Gross purulence noted. Intra-op cultures positive for S. mitis. Post-op ESR 84. Discontinue Vancomycin and Cefepime. Start Rocephin 2 grams IV daily. The patient has a documented allergy to PCN, but has been tolerating Cefepime without a problem. Start flagyl 500mg PO TID to cover for possible anaerobes as well. Duration of treatment depends on the clinical picture, but likely 6 weeks of IV antibiotics. Wound care and activity restrictions per the podiatry team. Consult VAT for EPIV placement. Will need weekly CBC, BUN/Cr, ESR, and CRP every Monday. Will need weekly EPIV care. Follow up with ID 10/26/17 at 0840. Qualifiers: Osteomyelitis type: unspecified type Osteomyelitis location: foot Laterality: right Qualified Code(s): M86.9 - Osteomyelitis, unspecified (3) Gas gangrene Status: Acute Assessment and plan: Location: Right foot. Continue antibiotics as above. (4) Acute kidney injury Status: Resolved Assessment and plan: Likely secondary to sepsis. Resolved. (5) Tobacco abuse Status: Chronic (6) Diabetic foot ulcer Status: Acute Assessment and plan: Location: Right heel. Etiology unclear. Wound care per the podiatry team's recommendations. Qualifiers: Diabetic foot ulcer location: heel Diabetes mellitus type: type 2 Laterality: right Non-pressure ulcer stage: with fat layer exposed Qualified Code(s): E11.621 - Type 2 diabetes mellitus with foot ulcer; L97.412 - Non-pressure chronic ulcer of right heel and midfoot with fat layer exposed; L97.412 - Non-pressure chronic ulcer of right heel and midfoot with fat layer exposed; L97.412 - Non-pressure chronic ulcer of right heel and midfoot with fat layer exposed; L97.412 - Non-pressure chronic ulcer of right heel and midfoot with fat layer exposed (7) Peripheral neuropathy Status: Chronic Qualifiers: Peripheral neuropathy type: polyneuropathy, unspecified Qualified Code(s): G62.9 - Polyneuropathy, unspecified (8) HTN (hypertension) Status: Chronic Qualifiers: Hypertension type: essential hypertension Qualified Code(s): I10 - Essential (primary) hypertension (9) Diabetes mellitus Status: Chronic Assessment and plan: Uncontrolled. HgbA1C 12%. Recommend aggressive glucose monitoring and control to promote wound healing and prevent re-infection. Management per the primary team. Qualifiers: Diabetes mellitus type: type 2 Diabetes mellitus complication status: with skin complications Diabetes mellitus complication detail: with foot ulcer Diabetes mellitus medical terminologist insulin use: with half-way use Qualified Code(s) : E11.621 - Type 2 diabetes mellitus with foot ulcer; L97.509 - Non-pressure chronic ulcer of other part of unspecified foot with unspecified severity; L97.509 - Non-pressure chronic ulcer of other part of unspecified foot with unspecified severity; L97.509 - Non-pressure chronic ulcer of other part of unspecified foot with unspecified severity; L97.509 - Non-pressure chronic ulcer of other part of unspecified foot with unspecified severity; 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 Larson is a 46 year old female past medical history of hypertension, hyperlipidemia, ABDs. The patient was admitted to the hospital October 09 for right foot infection. We are consulted marisol Summers for antibiotic recommendations for osteomyelitis. , The patient is a 46-year-old female with past medical history as stated above. She states she developed chronic diabetic foot ulcers to the right great toe for which she underwent a graft placement back in July. She states she sons currently developed a right she'll ulcer and was seen podiatry and wound care done at [facility] for that. She states she had the dressing moved and a new one placed on Monday and when the home health nurse came back on Monday she had noticed regression of the right heel wound and a new ulceration to the lateral aspect of the right foot. She says currently went to [facility] emergency department and was transferred here for additional evaluation. Upon arrival, the patient was afebrile, but she was tachycardic and have leukocytosis as well as an acute kidney injury. Her A1c was 12. X-ray of the foot was negative for osteomyelitis, but did show soft tissue gas. She also had a chest x-ray that showed some left basilar atelectasis versus scarring. She was started on empiric IV antibiotics and admitted to the hospital for further evaluation. Admission, the patient has been evaluated by podiatry. She was taken to the operating room on October 10 and had an I&D with incision and drainage of the right heel ulcer with bone biopsy of the right calcaneus, I&D of an abscess on the right distal foot. Wound culture is positive for strep mitis. Pathology is suspicious for osteomyelitis. Blood cultures obtained on October 10 are no growth to date 2 sets. Her leukocytosis has improved. Her acute kidney injury has resolved. Baseline ESR is elevated at 84, but this was drawn after surgery. Currently, the patient is on IV vancomycin and IV cefepime. We've been asked to evaluate and make further recommendations. During my exam today, the patient states that prior to admission she was having fevers and chills and overall not feeling well. She reports some headaches, but denied any neck pain. She denies any chest pain, shortness of breath, or cough. She noted some nausea and poor appetite but denied any vomiting or diarrhea. She denies any abdominal pain or urinary complaints. She reported increased pain in the right foot prior to admission, and currently reports that her pain medication regimen is working well to control her pain. Reports that there is increased redness and drainage from the wound as well. She does report that she was started on oral Levaquin and oral Bactrim last week by her wound care doctor when he noticed some regression of the wound at that time. She states that when they took the dressing off this past Monday there was gross purulence coming out of the wounds. She denies any oral thrush or new skin lesions. She states that overall she is feeling much better and she is about 75% improved. The patient lives at home with her and children. She has dogs at home. She does not work outside the home. She denies any recent travel she denies any drug or alcohol use. She does report that she smokes one pack of cigarettes per day. CC: Cliff Figueroa MD Past Med Surg Social Fam HX - Past Medical History Attestation: Yes The following information was validated with the patient. Source: patient, old records reviewed, nursing notes reviewed Medical history: diabetes, hypertension, other Psychiatric history: depression - Past Surgical History Surgical History: hysterectomy, other (Right great toe graft jacket) - Social History Smoking Status: Current every day smoker Packs per day: 1 Smokeless Tobacco Status: No Alcohol use: none Drug use: none Occupational status: unemployed Current living situation: Home, With Family Activity Level: Independent ambulation Recent Out of Country Travel Within the Last 8 Weeks: No Exposure or Possible Exposure to Illness During Travel: No - Family History Sister Hx Family Endocrine Disorder: Yes (Diabetes) Grandfather Hx Family Cardiac Disorders: Yes (Coronary artery disease at age 50) Father Hx Family Cardiac Disorders: Yes Hx Family Cancer: Yes (prostate cancer) Infectious Disease-CN:Meds Atorvastatin [Lipitor] 20 mg PO QPM 06/11/15 [History] Cholecalciferol (Vitamin D3) [Vitamin D3] 10,000 unit PO QWEEK PRN 06/11/15 [ History] Gabapentin [Neurontin] 600 mg PO TID 06/11/15 [History] Ibuprofen [Motrin] 800 mg PO TID PRN 06/11/15 [History] Insulin ASPART [NovoLOG] 0 - 12 unit SQ AD PRN 06/11/15 [History] Insulin Glargine,Hum.rec.anlog [Lantus Solostar] 50 units SQ QPM 06/11/15 [ History] Metoprolol [Lopressor] 25 mg PO DAILY 06/11/15 [History] Quetiapine Fumarate [Seroquel] 100 mg PO HS 06/11/15 [History] SUMAtriptan Succinate [Imitrex] 100 mg PO AD PRN 06/11/15 [History] Aspirin [Lo-Dose Aspirin EC] 81 mg PO DAILY 10/10/17 [History] Buprenorphine HCl/Naloxone HCl [Suboxone 8 mg-2 mg Sl Film] 1 film SL BID [History] Lisinopril-HCTZ 20-12.5 [Prinzide 20-12.5] 1 tab PO DAILY 10/10/17 [History] Omeprazole [PriLOSEC] 20 mg PO DAILY 10/10/17 [History] 3 Allergy/AdvReac Type Severity Reaction Status Date / Time Penicillins Allergy Swelling Verified 10/10/17 08:33 of Lip/Tongue/Throat All systems: reviewed and no additional remarkable complaints except as stated Exam - Constitutional Vitals: Temp Pulse Resp BP Pulse Ox 97.4 F L 100 18 130/81 91 10/13/17 11:00 10/13/17 11:00 10/13/17 11:00 10/13/17 11:00 10/13/17 11:00 General appearance: average body habitus, cooperative, no acute distress - Head Head exam: Present: atraumatic, normal inspection, normocephalic - Eye Eye exam: Present: EOMI, normal appearance, PERRL Pupils: Present: normal accommodation - ENT ENT exam: Present: mucous membranes moist - Neck Neck exam: Present: normal inspection - Respiratory Respiratory exam: Present: CTAB. Absent: rales, respiratory distress, rhonchi, wheezes - Cardiovascular Cardiovascular exam: Present: RRR, +S1, +S2 - GI/Abdominal GI/Abdominal exam: Present: normal bowel sounds, soft. Absent: distended, tenderness - Extremities Exam Extremities exam: Present: tenderness (Right foot). Absent: joint swelling, pedal edema Additional comments: Right foot dressing C/D/I. - Neurological Exam Neurological exam: Present: alert, oriented X3, no focal deficits - Psychiatric Psychiatric exam: Present: normal affect, normal mood - Skin Skin exam: Present: dry, intact, normal color, warm Infectious Disease CN: Results - Labs CBC & Chem 7: 10/16/17 06:45 10/16/17 06:45 Cultures: Cultures 10/10/17 17:45 Anaerobic Culture - Preliminary Right Foot At this time, no anaerobic growth is present. The culture will be finalized after 5 days of incubation. 10/10/17 17:45 Surgical Biopsy Culture - Final Right Foot Streptococcus mitis/S.oralis 10/10/17 01:20 Wound Culture - Final Right Foot Streptococcus mitis/S.oralis 10/10/17 01:57 Blood Culture - Preliminary Peripheral Venipuncture No growth. 10/10/17 01:57 Blood Culture - Preliminary Peripheral Venipuncture No growth. Serology: Serology 10/09/17 Range/Units 23:55 Urine Color Yellow (Yellow) Urine Clarity Clear (Clear) Urine pH 6.0 (5.0-8.0) pH Units Ur Specific [place] 1.017 (1.010-1.025) Urine Protein Trace (Neg-Trace) mg/dL Urine Glucose (UA) Normal (Normal) mg/dL Urine Ketones Negative (Negative) mg/dL Urine Blood Negative (Negative) Urine Nitrite Negative (Negative) Urine Bilirubin Negative (Negative) Urine Urobilinogen Normal (Normal) mg/dL Ur Leukocyte Esterase Negative (Negative) Urine Microscopic RBC 5-15 H (0-3) per hpf Urine Microscopic WBC 0-3 (0-3) per hpf Ur Squamous Epith Cells Many H (None-Few) per lpf Urine Bacteria None Seen (None-Few) per hpf Hyaline Casts None Seen (None-Few) per lpf Consult Discharge Plan - Plan Referrals: Alejandro Le DO [Primary Care Provider] - Danielle Ovalle CNP [Advanced Practice Nurse] - 10/26/17 8:40 am
[2017-10-13] MEDS: metroNIDAZOLE 500 MG TABLET PO SCH ×2 (14:23→20:10)
[2017-10-13] MEDS: cefTRIAXone 2,000 MG in Water for inj. (sterile) 20 ML IVP SCH (14:33)
--- NOTE | 2017-10-13 16:11 | Anesthesia Evaluation PreOp ---
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 Foot) : No (AIDEE) Alcohol Use: none Drug use: none Medications and Allergies Atorvastatin [Lipitor] 20 mg PO QPM 06/11/15 [History] Cholecalciferol (Vitamin D3) [Vitamin D3] 10,000 unit PO QWEEK PRN 06/11/15 [ History] Gabapentin [Neurontin] 600 mg PO TID 06/11/15 [History] Ibuprofen [Motrin] 800 mg PO TID PRN 06/11/15 [History] Insulin ASPART [NovoLOG] 0 - 12 unit SQ AD PRN 06/11/15 [History] Insulin Glargine,Hum.rec.anlog [Lantus Solostar] 50 units SQ QPM 06/11/15 [ History] Metoprolol [Lopressor] 25 mg PO DAILY 06/11/15 [History] Quetiapine Fumarate [Seroquel] 100 mg PO HS 06/11/15 [History] SUMAtriptan Succinate [Imitrex] 100 mg PO AD PRN 06/11/15 [History] Aspirin [Lo-Dose Aspirin EC] 81 mg PO DAILY 10/10/17 [History] Buprenorphine HCl/Naloxone HCl [Suboxone 8 mg-2 mg Sl Film] 1 film SL BID [History] Lisinopril-HCTZ 20-12.5 [Prinzide 20-12.5] 1 tab PO DAILY 10/10/17 [History] Omeprazole [PriLOSEC] 20 mg PO DAILY 10/10/17 [History] 3 Allergy/AdvReac Type Severity Reaction Status Date / Time Penicillins Allergy Swelling Verified 10/10/17 08:33 of Lip/Tongue/Throat - Meds/Allergy Pre-op Review Medications Reviewed: Yes Allergies Reviewed: Yes Beta Blockers on Current Med List: Yes If Beta Blockers taken, Date/Time (Last Dose taken): 09:44 10/13/2017 Anesthesia Results - Labs 10/13/17 05:40 12/15/17 05:40 - Imaging EKG: report reviewed (ST) Anesthesia Exam O2 Sat Weight 95.254 kg O2 Sat by Pulse Oximetry 96 O2 Sat by Pulse Oximetry 91 O2 Sat by Pulse Oximetry 94 O2 Sat by Pulse Oximetry 91 O2 Sat by Pulse Oximetry 93 O2 Sat by Pulse Oximetry 92 Vital Signs Temp Pulse Resp BP Pulse Ox 97.7 F 109 18 115/76 96 10/09/17 22:11 10/09/17 22:11 10/09/17 22:11 10/09/17 22:11 10/09/17 22:11 Vital Signs/O2 Sat, Most Current Temp Pulse Resp BP Pulse Ox 98.9 F 84 18 125/79 96 10/13/17 15:23 10/13/17 15:23 10/13/17 15:23 10/13/17 15:23 10/13/17 15:23 Height: 5'5'' Weight: 210# NPO (# of Hours): > 8 hrs Pain Scale: 0 Pain Scale Used: Numeric (1 - 10) - HEENT Pupil (Motor): Pupils equal, EOMI Mallampati: III Teeth: Normal Oral Opening: Greater than 3 - MACHINE VENEER REPAIRER LOC: Oriented MACHINE VENEER REPAIRER Motor: Normal RUE, Normal LUE, Normal RLE, Normal LLE, Normal Face MACHINE VENEER REPAIRER Sensory: Normal: RUE, LUE, RLE, LLE, Face - Cardiac Rhythm: Regular Murmur: None JVD: No Carotid Bruit: No - Pulmonary Breath Sounds: left Rhonchi, bilateral Clear Anesthesia Assess/Plan ASA Score: 4 Modified Portillo Scale for Level of Consciousness: Cooperative, oriented, and tranquil Anesthetic Plan: MAC Autologous Blood: Yes Monitoring Plan: Standard Monitors Recovery Plan: Other
[2017-10-13] MEDS ORDERED: Bupivacaine/Clonidine Syringe 1 EACH SYRINGE ONE (16:50)
[2017-10-13] MEDS: Insulin DETEMIR 100 UNIT/ML X5UNITS SQ SCH (20:10)
[2017-10-14] MEDS: Insulin LISPRO 300 UNITS/3 ML VIAL SQ SCH ×7 (01:26→18:03)
[2017-10-14 04:27] LABS: Basophils # 0.1 K/mcL (0.0-0.2); Basophils % 0.5 %; Eosinophils # 0.4 K/mcL (0.0-0.6); Eosinophils % 3.3 %; Hematocrit 24.7 % (35.3-44.9); Hemoglobin 8.2 g/dL (11.5-15.4); Immature Granulocytes % 4.6 % (0-4); Lymphocytes # 2.5 K/mcL (0.6-4.6); Lymphocytes % 19.3 %; Mean Corpuscular HGB Conc 33.2 g/dL (31.6-35.5); Mean Corpuscular Hemoglobin 30.4 pg (28.0-33.3); Mean Corpuscular Volume 91.5 fL (83.0-100.0); Mean Platelet Volume 8.8 fL (9.4-12.4); Monocytes # 0.8 K/mcL (0.0-1.3); Monocytes % 6.3 %; Neutrophils # 8.5 K/mcL (1.6-8.9); Platelet Count 348 K/mcL (140-400); Red Cell Distribution Width 13.1 % (11.5-14.5)
[2017-10-14 04:38] LABS: BUN/Creatinine Ratio 24 (6-26); Blood Urea Nitrogen 25 mg/dL (7-20); Calcium 8.7 mg/dL (8.6-10.8); Carbon Dioxide 22 mEq/L (19-29); Chloride 107 mEq/L (98-109); Glucose 263 mg/dL (70-99); Osmolality,Calculated 298 (280-300); Potassium 4.3 mEq/L (3.5-4.5); Sodium 137 mEq/L (136-145); eGFR For African Americans > 60 (> 60); eGFR For Non-African Americans 56 (> 60)
[2017-10-14] MEDS: *HR* Heparin 5,000 UNIT/ML VIAL SQ SCH ×2 (05:51→18:04)
[2017-10-14] MEDS: (Buprenorphine Hcl/Naloxone Hcl [Suboxone 8 Mg-2 Mg S) SL SCH ×2 (08:00→20:52)
[2017-10-14] MEDS: Aspirin 81 MG TAB.CHEW PO SCH (08:00)
[2017-10-14] MEDS ORDERED: Albuterol 2.5 MG/3 ML NEBULIZER ONE (09:37)
[2017-10-14] MEDS ORDERED: *HR* Dextrose 50 % in Water (Syg) 50 ML SYRINGE IVP ONE (09:59)
[2017-10-14] MEDS ORDERED: Ringers Solution, Lactated 1,000 ML ONE (10:04)
[2017-10-14] MEDS ORDERED: Lidocaine -MPF 2% 2 ML VIAL ONE (10:21)
[2017-10-14] MEDS ORDERED: *HR* FentaNYL (PF) 100 MCG/2 ML VIAL ONE (10:21)
[2017-10-14] MEDS ORDERED: *HR* Midazolam HCl 2 MG/2 ML VIAL ONE (10:21)
[2017-10-14] MEDS ORDERED: Ondansetron 4 MG/2 ML VIAL ONE (10:21)
[2017-10-14] MEDS ORDERED: *HR* Propofol 200 MG/20 ML VIAL IVP ONE (10:21)
[2017-10-14] MEDS ORDERED: Bupivacaine/Clonidine Syringe 1 EACH SYRINGE ONE (10:38)
[2017-10-14] MEDS: metroNIDAZOLE 500 MG TABLET PO SCH ×3 (11:14→20:52)
[2017-10-14] MEDS: Gabapentin 300 MG CAPSULE PO SCH ×3 (11:14→20:52)
[2017-10-14] MEDS: Aspirin Enteric Coated 81 MG Tablet PO SCH (11:14)
[2017-10-14] MEDS ORDERED: Propofol 500 MG/50 ML INFUS..BTL ONE (11:43)
--- NOTE | 2017-10-14 11:43 | Internal Med Progress Note ---
Date of Encounter: 10/14/17 Time of Encounter: 15:01 - Assessment and plan (1) Osteomyelitis Current Visit: Yes Status: Acute Assessment and plan: Continue Vanco, clinda, cefepime Podiatry recommendations noted s/p bone biopsy and culture, growing GPC Received vancomycin and Cefepime-Day 4 Day 5 of antibiotics, now n Ceftriaxone, will hannah 6 weeks of therapy ID poly CANDELARIA for IV infusion, Wound vac and wound care CT/CT foot RT wo con IMPRESSION: 1. Large plantar and lateral hindfoot ulceration with extensive soft tissue gas. There is soft tissue gas extending to involve the calcaneus. Findings are consistent with gas-forming bacterial infection and osteomyelitis. 2. Additional soft tissue gas within the lateral soft tissues of the midfoot consistent with additional site of gas-forming bacterial infection. Qualifiers: Osteomyelitis type: unspecified type Osteomyelitis location: foot Laterality: right Qualified Code(s): M86.9 - Osteomyelitis, unspecified (2) Diabetic foot ulcer Current Visit: Yes Status: Acute Assessment and plan: Gas gangrene, infected DM foot lcer Podiatry is following, s/p debridement and bone biopsy, POD 4 For wash out and wound Vac today per podiatry Continue Ceftriaxone CT/CT foot RT wo con IMPRESSION: 1. Large plantar and lateral hindfoot ulceration with extensive soft tissue gas. There is soft tissue gas extending to involve the calcaneus. Findings are consistent with gas-forming bacterial infection and osteomyelitis. 2. Additional soft tissue gas within the lateral soft tissues of the midfoot consistent with additional site of gas-forming bacterial infection. Qualifiers: Diabetic foot ulcer location: heel Diabetes mellitus type: type 2 Laterality: right Non-pressure ulcer stage: with fat layer exposed Qualified Code(s): E11.621 - Type 2 diabetes mellitus with foot ulcer; L97.412 - Non-pressure chronic ulcer of right heel and midfoot with fat layer exposed; L97.412 - Non-pressure chronic ulcer of right heel and midfoot with fat layer exposed; L97.412 - Non-pressure chronic ulcer of right heel and midfoot with fat layer exposed; L97.412 - Non-pressure chronic ulcer of right heel and midfoot with fat layer exposed (3) Gas gangrene Current Visit: Yes Status: Acute Assessment and plan: as above (4) HTN (hypertension) Current Visit: Yes Status: Chronic Assessment and plan: Controlled, continue home medications except lisinopril and hydrochlorothiazide due to acute kidney injury. Qualifiers: Hypertension type: essential hypertension Qualified Code(s): I10 - Essential (primary) hypertension (5) Depression Current Visit: Yes Status: Chronic Assessment and plan: Continue home medications. Qualifiers: Depression Type: unspecified Qualified Code(s): F32.9 - Major depressive disorder, single episode, unspecified (6) Anemia Current Visit: Yes Status: Chronic Assessment and plan: Chronic, possibly anemia of chronic disease. Hemoglobin stable at 8, continue to monitor Type and screen is done Continue to monitor, will transfuse for Hb <7. Qualifiers: Anemia type: unspecified type Qualified Code(s): D64.9 - Anemia, unspecified (7) Acute kidney injury Current Visit: Yes Status: Resolved Assessment and plan: Resolved, renal function is back to baseline (8) Hyperlipidemia Current Visit: Yes Status: Chronic Assessment and plan: Continue home meds Qualifiers: Hyperlipidemia type: unspecified Qualified Code(s): E78.5 - Hyperlipidemia , unspecified (9) DVT prophylaxis Current Visit: Yes Status: Acute Assessment and plan: Heparin SQ (10) Diabetes mellitus Current Visit: Yes Status: Chronic Assessment and plan: FS not optimal goal is 140-180 Continue current dose of levemir and lispro A1C is 12% Monitor FS ACHS ADA diet Qualifiers: Diabetes mellitus type: type 2 Diabetes mellitus complication status: with skin complications Diabetes mellitus complication detail: with foot ulcer 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 use Qualified Code(s) : E11.621 - Type 2 diabetes mellitus with foot ulcer; L97.509 - Non-pressure chronic ulcer of other part of unspecified foot with unspecified severity; L97.509 - Non-pressure chronic ulcer of other part of unspecified foot with unspecified severity; L97.509 - Non-pressure chronic ulcer of other part of unspecified foot with unspecified severity; L97.509 - Non-pressure chronic ulcer of other part of unspecified foot with unspecified severity; Z79.4 - prison (current) use of insulin; 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 46-year-old female with uncontrolled type 2 diabetes mellitus Patient is admitted and being managed for infected and gangrenous diabetic foot ulcer, as well as acute kidney injury and Right calcaneal OM She is POD 3 s/p debridement, intra-op findings included dog hair in her wound, deep presence of pus and gangrene, bone biopsies and cultures were taken She is denying new complains today and states she feels slightly improved Her renal function is back to baseline Wound culture and bone growing Strep mitis , resistant to clindamycin, will discontinue Clinda Podiatry is following, for washout and wound Vac placement today 10/14 Day 5 total of antibiotics Continue current care - Constitutional Vitals: Temp Pulse Resp BP Pulse Ox 98.8 F 88 19 153/91 97 10/14/17 08:35 10/14/17 08:35 10/14/17 08:35 10/14/17 08:35 10/14/17 08:35 General appearance: Present: cooperative, A&O X 3, pleasant, no acute distress, obese, answers questions appropriately - Head Head exam: Present: atraumatic, normocephalic - Eye Eye exam: Present: PERRL, conjuntiva pink, sclera anicteric Pupils: Present: PERRL - Neck Neck exam general surgery: Present: supple, trachea midline. Absent: lymphadenopathy - Respiratory Respiratory exam: Present: CTAB. Absent: accessory muscle use, rales, rhonchi, wheezes - Cardiovascular Cardiovascular exam: Present: RRR, +S1, +S2. Absent: diastolic murmur, gallop, rubs, systolic murmur - GI/Abdominal GI/Abdominal exam: Present: normal bowel sounds, soft, no peritoneal signs. Absent: distended, tenderness - Extremities Exam Additional comments: wound dressing clean and dry - Neurological Exam Neurological exam: Present: alert, CN II-XII intact, oriented X3, no focal deficits. Absent: pronater drift, facial droop, speech deficit - Skin Skin exam: Present: dry, intact Internal Medicine: Result - Labs CBC & Chem 7: 10/14/17 04:15 10/14/17 04:15 Labs: Short CBC 10/14/17 Range/Units 04:15 WBC 12.9 H (4.3-11.1) K/mcL Hgb 8.2 L (11.5-15.4) g/dL Hct 24.7 L (35.3-44.9) % Plt Count 348 (140-400) K/mcL Neutrophils # 8.5 (1.6-8.9) K/mcL BMP 10/14/17 04:15 Sodium 137 Potassium 4.3 Chloride 107 Carbon Dioxide 22 BUN 25 H Creatinine 1.05 Glucose 263 H Calcium 8.7 - ABG Interpretation ABG results: PT/INR, D-dimer PT 14.3 Seconds (9.4-12.1) H 10/09/17 22:59 Consult Discharge Plan - Plan Referrals: Danielle Ovalle CNP [Advanced Practice Nurse] - 10/26/17 8:40 am Alejandro Le DO [Primary Care Provider] -
[2017-10-14] MEDS ORDERED: *HR* HYDROmorphone (PF) 1 MG/ML SYRINGE ONE (12:40)
[2017-10-14] MEDS ORDERED: *HR* HYDROmorphone (PF) 1 MG/ML SYRINGE IVP PRN (12:42)
[2017-10-14] MEDS ORDERED: *HR* Promethazine 25 MG/ML VIAL IVP PRN (12:42)
[2017-10-14] MEDS ORDERED: Albuterol 2.5 MG/3 ML NEBULIZER IH PRN (12:42)
--- NOTE | 2017-10-14 13:08 | Anesthesia Evaluation Post Op ---
Date of Encounter: 10/14/17 Time of Encounter: 13:06 - Vital Signs Vital Signs: Vital Signs/O2 Sat, Most Current Temp Pulse Resp BP Pulse Ox 97.8 F 84 16 144/89 95 10/14/17 13:05 10/14/17 13:05 10/14/17 13:05 10/14/17 13:05 10/14/17 13:05 - Lungs Lungs: Clear Ascult./Percussion - Airway Airway: Non-obstructed - Cardiovascular Regular Rate - Mental Status Mental Status: Asleep with brisk response to light stimulation - Pain Pain Scale: 0 Pain Scale used: Numeric (1 - 10) - Nausea Vomiting Nausea Vomiting: Not Present - Hydration Hydration: Tolerates oral liquids - Discharge PostOp Status: Transfer Patient to floor Attestation: I have assessed this patient and find they meet discharge criteria.
[2017-10-14] MEDS: cefTRIAXone 2,000 MG in Water for inj. (sterile) 20 ML IVP SCH (15:44)
[2017-10-14] MEDS: Nicotine 21 MG PATCH.TD24 TD SCH (15:45)
[2017-10-14] MEDS: *HR* Morphine 2 MG/ML SYRINGE IVP PRN ×2 (18:01→22:30)
[2017-10-14] MEDS: Insulin DETEMIR 100 UNIT/ML X5UNITS SQ SCH (20:52)
--- NOTE | 2017-10-14 22:49 | Operative Note ---
Date of procedure: 10/14/17 Pre-op diagnosis: Right foot infection with osteomyelitis and ulceration Post-op diagnosis: same Procedure: Irrigation and debridement of right foot ulcerations with application of wound VAC Anesthesia: MAC Surgeon: Kory Chahal Estimated blood loss (cc): 10 Specimen: Cultures obtained Condition: stable Disposition: floor Procedure in Detail: The patient was administered IV antibiotics. The patient was transported to the operative room and placed on operating table. Following anesthesia the extremity was scrubbed prepped and draped in the usual aseptic fashion. A timeout was performed. The lower extremity was raised to 60 degrees for hemostasis and exsanguinated utilizing an Esmarch bandage. The pneumatic tourniquet was inflated. The leg was lowered to the table. The large ulceration which measured approximately 9 cm in diameter on the posterior lateral aspect of the right calcaneus was debrided with the misonix curette-type debrider. The other ulceration on the lateral aspect of the right foot was debrided in a similar fashion. Both sides had an aggressive debridement which consisted of epidermis, dermis, subcutaneous, fascia debrided. The size of the wounds measured approximately 9 cm in diameter and 2- 3 cm in depth for the calcaneal ulceration and 3 cm in length by 2 cm in width by 1 cm in depth for the lateral ulceration. The incision site was irrigated with copious amounts of normal saline. A wound VAC was applied. The pneumatic tourniquet was deflated and a hyperemic response was noted to all digits. The patient tolerated the procedure and anesthesia well and was transported to the recovery room with vital signs stable and vascular status intact to both feet. The patient will be readmitted to the floor per anesthesia. The patient will require a wound VAC change on Monday, Monday, Monday. The patient will need long-term IV antibiotics due to the probability of bone infection. The patient will remain nonweightbearing.
[2017-10-15] MEDS: Insulin LISPRO 300 UNITS/3 ML VIAL SQ SCH ×10 (00:02→21:46)
[2017-10-15 03:25] LABS: Basophils # 0.1 K/mcL (0.0-0.2); Basophils % 0.4 %; Eosinophils # 0.4 K/mcL (0.0-0.6); Hematocrit 23.9 % (35.3-44.9); Immature Granulocytes % 3.8 % (0-4); Immature Platelets 1.2 % (1.1-6.1); Mean Corpuscular HGB Conc 33.5 g/dL (31.6-35.5); Mean Corpuscular Hemoglobin 30.8 pg (28.0-33.3); Mean Corpuscular Volume 91.9 fL (83.0-100.0); Mean Platelet Volume 8.8 fL (9.4-12.4); Monocytes # 0.8 K/mcL (0.0-1.3); Monocytes % 6.1 %; Neutrophils # 7.8 K/mcL (1.6-8.9); Platelet Count 382 K/mcL (140-400); Segmented Neutrophils % 62.7 %
[2017-10-15 03:37] LABS: BUN/Creatinine Ratio 24 (6-26); Blood Urea Nitrogen 24 mg/dL (7-20); Calcium 8.7 mg/dL (8.6-10.8); Carbon Dioxide 25 mEq/L (19-29); Chloride 109 mEq/L (98-109); Glucose 62 mg/dL (70-99); Osmolality,Calculated 294 (280-300); Potassium 4.3 mEq/L (3.5-4.5); Sodium 141 mEq/L (136-145); eGFR For African Americans > 60 (> 60); eGFR For Non-African Americans 59 (> 60)
[2017-10-15] MEDS: *HR* Morphine 2 MG/ML SYRINGE IVP PRN ×4 (03:38→21:46)
[2017-10-15] MEDS: *HR* Heparin 5,000 UNIT/ML VIAL SQ SCH ×2 (05:55→17:28)
[2017-10-15] MEDS: Nicotine 21 MG PATCH.TD24 TD SCH (08:30)
[2017-10-15] MEDS: Gabapentin 300 MG CAPSULE PO SCH ×3 (08:30→21:45)
[2017-10-15] MEDS: Aspirin Enteric Coated 81 MG Tablet PO SCH (08:30)
[2017-10-15] MEDS: metroNIDAZOLE 500 MG TABLET PO SCH ×3 (08:30→21:45)
[2017-10-15] MEDS: (Buprenorphine Hcl/Naloxone Hcl [Suboxone 8 Mg-2 Mg S) SL SCH ×2 (08:31→21:46)
[2017-10-15] MEDS: Aspirin 81 MG TAB.CHEW PO SCH (08:31)
[2017-10-15] MEDS ORDERED: Dextrose Gel 15 GM PO PRN ×4 (12:17→12:20)
[2017-10-15] MEDS ORDERED: *HR* Dextrose 50 % in Water (Syg) 50 ML SYRINGE IVP PRN ×2 (12:17→12:20)
[2017-10-15] MEDS ORDERED: D5% in Water 1,000 ML IVC PRN ×2 (12:17→12:20)
--- NOTE | 2017-10-15 12:22 | Internal Med Progress Note ---
Date of Encounter: 10/15/17 Time of Encounter: 12:20 - Assessment and plan (1) Osteomyelitis Current Visit: Yes Status: Acute Assessment and plan: Continue Vanco, clinda, cefepime Podiatry recommendations noted s/p bone biopsy and culture, growing GPC Received vancomycin and Cefepime-4 days Day 6 of antibiotics, now n Ceftriaxone, will need 6 weeks of therapy ID poly CANDELARIA for IV infusion, Wound vac and wound care CT/CT foot RT wo con IMPRESSION: 1. Large plantar and lateral hindfoot ulceration with extensive soft tissue gas. There is soft tissue gas extending to involve the calcaneus. Findings are consistent with gas-forming bacterial infection and osteomyelitis. 2. Additional soft tissue gas within the lateral soft tissues of the midfoot consistent with additional site of gas-forming bacterial infection. Qualifiers: Osteomyelitis type: unspecified type Osteomyelitis location: foot Laterality: right Qualified Code(s): M86.9 - Osteomyelitis, unspecified (2) Diabetic foot ulcer Current Visit: Yes Status: Acute Assessment and plan: Gas gangrene, infected DM foot lcer Podiatry is following, s/p debridement and bone biopsy, POD Wound vac placed 10/14 Continue Ceftriaxone 2g daily CT/CT foot RT wo con IMPRESSION: 1. Large plantar and lateral hindfoot ulceration with extensive soft tissue gas. There is soft tissue gas extending to involve the calcaneus. Findings are consistent with gas-forming bacterial infection and osteomyelitis. 2. Additional soft tissue gas within the lateral soft tissues of the midfoot consistent with additional site of gas-forming bacterial infection. Qualifiers: Diabetic foot ulcer location: heel Diabetes mellitus type: type 2 Laterality: right Non-pressure ulcer stage: with fat layer exposed Qualified Code(s): E11.621 - Type 2 diabetes mellitus with foot ulcer; L97.412 - Non-pressure chronic ulcer of right heel and midfoot with fat layer exposed; L97.412 - Non-pressure chronic ulcer of right heel and midfoot with fat layer exposed; L97.412 - Non-pressure chronic ulcer of right heel and midfoot with fat layer exposed; L97.412 - Non-pressure chronic ulcer of right heel and midfoot with fat layer exposed (3) Gas gangrene Current Visit: Yes Status: Acute Assessment and plan: as above (4) HTN (hypertension) Current Visit: Yes Status: Chronic Assessment and plan: Controlled, continue home medications except lisinopril and hydrochlorothiazide due to acute kidney injury. Qualifiers: Hypertension type: essential hypertension Qualified Code(s): I10 - Essential (primary) hypertension (5) Depression Current Visit: Yes Status: Chronic Assessment and plan: Continue home medications. Qualifiers: Depression Type: unspecified Qualified Code(s): F32.9 - Major depressive disorder, single episode, unspecified (6) Anemia Current Visit: Yes Status: Chronic Assessment and plan: Chronic, possibly anemia of chronic disease. Hemoglobin stable at 8, continue to monitor Type and screen is done Continue to monitor, will transfuse for Hb <7. Qualifiers: Anemia type: unspecified type Qualified Code(s): D64.9 - Anemia, unspecified (7) Acute kidney injury Current Visit: Yes Status: Resolved Assessment and plan: Resolved, renal function is back to baseline (8) Hyperlipidemia Current Visit: Yes Status: Chronic Assessment and plan: Continue home meds Qualifiers: Hyperlipidemia type: unspecified Qualified Code(s): E78.5 - Hyperlipidemia , unspecified (9) DVT prophylaxis Current Visit: Yes Status: Acute Assessment and plan: Heparin SQ (10) Diabetes mellitus Current Visit: Yes Status: Chronic Assessment and plan: FS not optimal goal is 140-180 Continue current dose of levemir and lispro A1C is 12% Monitor FS ACHS ADA diet Qualifiers: Diabetes mellitus type: type 2 Diabetes mellitus complication status: with skin complications Diabetes mellitus complication detail: with foot ulcer Diabetes mellitus terminal carman insulin use: with terminal carman use Qualified Code(s) : E11.621 - Type 2 diabetes mellitus with foot ulcer; L97.509 - Non-pressure chronic ulcer of other part of unspecified foot with unspecified severity; L97.509 - Non-pressure chronic ulcer of other part of unspecified foot with unspecified severity; L97.509 - Non-pressure chronic ulcer of other part of unspecified foot with unspecified severity; L97.509 - Non-pressure chronic ulcer of other part of unspecified foot with unspecified severity; Z79.4 - exterminator helper (current) use of insulin; Z79.4 - USP (current) use of insulin; Z79.4 - exterminator helper (current) use of insulin; Z79.4 - exterminator helper (current) use of insulin - Subjective Interval history: Seen and evaluated at the bedside. 46-year-old female with uncontrolled type 2 diabetes mellitus Patient is admitted and being managed for infected and gangrenous diabetic foot ulcer, as well as acute kidney injury and Right calcaneal OM She is POD 5 s/p debridement, intra-op findings included dog hair in her wound, deep presence of pus and gangrene, bone biopsies and cultures were taken She is denying new complains today Her renal function is back to baseline Wound culture and bone growing Strep mitis , resistant to clindamycin, will discontinue Clinda Podiatry is following, for washout and wound Vac placement 10/14 Day 6 total of antibiotics Continue current care - Constitutional Vitals: Temp Pulse Resp BP Pulse Ox 98.8 F 72 18 115/67 93 10/15/17 10:58 10/15/17 10:58 10/15/17 10:58 10/15/17 10:58 10/15/17 10:58 General appearance: Present: cooperative, A&O X 3, pleasant, no acute distress, obese, answers questions appropriately - Head Head exam: Present: atraumatic, normocephalic - Eye Eye exam: Present: PERRL, conjuntiva pink, sclera anicteric Pupils: Present: PERRL - Neck Neck exam general surgery: Present: supple, trachea midline. Absent: lymphadenopathy - Respiratory Respiratory exam: Present: CTAB. Absent: accessory muscle use, rales, rhonchi, wheezes - Cardiovascular Cardiovascular exam: Present: RRR, +S1, +S2. Absent: diastolic murmur, gallop, rubs, systolic murmur - GI/Abdominal GI/Abdominal exam: Present: normal bowel sounds, soft, no peritoneal signs. Absent: distended, tenderness - Extremities Exam Extremities exam: Present: warm, radial pulses palpable and symmetrical. Absent : calf tenderness, cyanotic, pedal edema - Neurological Exam Neurological exam: Present: alert, CN II-XII intact, oriented X3, no focal deficits. Absent: pronater drift, facial droop, speech deficit - Skin Skin exam: Present: dry, intact Internal Medicine: Result - Labs CBC & Chem 7: 10/15/17 03:15 10/15/17 03:15 Labs: Short CBC 10/15/17 Range/Units 03:15 WBC 12.4 H (4.3-11.1) K/mcL Hgb 8.0 L (11.5-15.4) g/dL Hct 23.9 L (35.3-44.9) % Plt Count 382 (140-400) K/mcL Neutrophils # 7.8 (1.6-8.9) K/mcL BMP 10/15/17 03:15 Sodium 141 Potassium 4.3 Chloride 109 Carbon Dioxide 25 BUN 24 H Creatinine 1.01 Glucose 62 L Calcium 8.7 - ABG Interpretation ABG results: PT/INR, D-dimer PT 14.3 Seconds (9.4-12.1) H 10/09/17 22:59 Consult Discharge Plan - Plan Referrals: Danielle Ovalle CNP [Advanced Practice Nurse] - 10/26/17 8:40 am Alejandro Le DO [Primary Care Provider] -
[2017-10-15] MEDS: cefTRIAXone 2,000 MG in Water for inj. (sterile) 20 ML IVP SCH (13:04)
[2017-10-15] MEDS: Insulin DETEMIR 100 UNIT/ML X5UNITS SQ SCH (21:46)
[2017-10-16] MEDS: *HR* Heparin 5,000 UNIT/ML VIAL SQ SCH ×2 (06:39→17:39)
[2017-10-16 06:58] LABS: Basophils # 0.1 K/mcL (0.0-0.2); Basophils % 0.7 %; Eosinophils # 0.4 K/mcL (0.0-0.6); Eosinophils % 3.4 %; Hematocrit 26.1 % (35.3-44.9); Hemoglobin 8.7 g/dL (11.5-15.4); Immature Granulocytes % 3.8 % (0-4); Lymphocytes # 2.9 K/mcL (0.6-4.6); Lymphocytes % 24.5 %; Mean Corpuscular HGB Conc 33.3 g/dL (31.6-35.5); Mean Corpuscular Hemoglobin 30.6 pg (28.0-33.3); Mean Corpuscular Volume 91.9 fL (83.0-100.0); Mean Platelet Volume 9.1 fL (9.4-12.4); Monocytes # 0.7 K/mcL (0.0-1.3); Monocytes % 5.6 %; Neutrophils # 7.3 K/mcL (1.6-8.9); Platelet Count 352 K/mcL (140-400); Red Blood Count 2.84 M/mcL (3.82-4.97); Red Cell Distribution Width 13.2 % (11.5-14.5)
[2017-10-16 07:07] LABS: BUN/Creatinine Ratio 27 (6-26); Blood Urea Nitrogen 26 mg/dL (7-20); Calcium 8.5 mg/dL (8.6-10.8); Carbon Dioxide 25 mEq/L (19-29); Chloride 108 mEq/L (98-109); Glucose 177 mg/dL (70-99); Osmolality,Calculated 299 (280-300); Potassium 4.4 mEq/L (3.5-4.5); Sodium 140 mEq/L (136-145); eGFR For African Americans > 60 (> 60); eGFR For Non-African Americans > 60 (> 60)
[2017-10-16] MEDS: Insulin LISPRO 300 UNITS/3 ML VIAL SQ SCH ×7 (10:00→20:48)
[2017-10-16] MEDS: Gabapentin 300 MG CAPSULE PO SCH ×3 (10:00→20:39)
[2017-10-16] MEDS: Nicotine 21 MG PATCH.TD24 TD SCH (10:00)
[2017-10-16] MEDS: Aspirin Enteric Coated 81 MG Tablet PO SCH (10:00)
[2017-10-16] MEDS: metroNIDAZOLE 500 MG TABLET PO SCH (10:00)
[2017-10-16] MEDS: (Buprenorphine Hcl/Naloxone Hcl [Suboxone 8 Mg-2 Mg S) SL SCH ×2 (10:01→20:39)
--- NOTE | 2017-10-16 12:23 | Discharge Summary ---
Date of Encounter: 10/16/17 Time of Encounter: 12:21 - Discharge Diagnosis (1) Osteomyelitis Priority: Primary Status: Acute Comments: s/p bone biopsy and culture, growing Strep mitis She Received vancomycin and Cefepime for 4 days Day 7 of antibiotics, now n Ceftriaxone, will need 6 weeks of therapy ID yanickal appreciated, follow up as out-patient SW for IV infusion, Wound vac and wound care Qualifiers: Osteomyelitis type: unspecified type Osteomyelitis location: foot Laterality: right Qualified Code(s): M86.9 - Osteomyelitis, unspecified (2) Diabetic foot ulcer Priority: Primary Status: Acute Comments: As above Qualifiers: Diabetic foot ulcer location: heel Diabetes mellitus type: type 2 Laterality: right Non-pressure ulcer stage: with fat layer exposed Qualified Code(s): E11.621 - Type 2 diabetes mellitus with foot ulcer; L97.412 - Non-pressure chronic ulcer of right heel and midfoot with fat layer exposed; L97.412 - Non-pressure chronic ulcer of right heel and midfoot with fat layer exposed; L97.412 - Non-pressure chronic ulcer of right heel and midfoot with fat layer exposed; L97.412 - Non-pressure chronic ulcer of right heel and midfoot with fat layer exposed (3) Gas gangrene Priority: Primary Status: Acute Comments: As in OM (4) HTN (hypertension) Priority: Secondary Status: Chronic Comments: Controlled, continue home medications Qualifiers: Hypertension type: essential hypertension Qualified Code(s): I10 - Essential (primary) hypertension (5) Depression Priority: Secondary Status: Chronic Comments: Continue home meds Qualifiers: Depression Type: unspecified Qualified Code(s): F32.9 - Major depressive disorder, single episode, unspecified (6) Anemia Priority: Secondary Status: Chronic Comments: Stable , chronic Qualifiers: Anemia type: unspecified type Qualified Code(s): D64.9 - Anemia, unspecified (7) Acute kidney injury Priority: Primary Status: Resolved Comments: Due to dehydration Resolved (8) Hyperlipidemia Priority: Secondary Status: Chronic Comments: Continue home meds Qualifiers: Hyperlipidemia type: unspecified Qualified Code(s): E78.5 - Hyperlipidemia , unspecified (9) DVT prophylaxis Priority: Secondary Status: Resolved (10) Diabetes mellitus Priority: Secondary Status: Chronic Comments: Uncontrolled A1C 12 Continue insulin at home dietary control Increased dose of insulin at discharge Qualifiers: Diabetes mellitus type: type 2 Diabetes mellitus complication status: with skin complications Diabetes mellitus complication detail: with foot ulcer Diabetes mellitus truck terminal manager insulin use: with truck terminal manager use Qualified Code(s) : E11.621 - Type 2 diabetes mellitus with foot ulcer; L97.509 - Non-pressure chronic ulcer of other part of unspecified foot with unspecified severity; L97.509 - Non-pressure chronic ulcer of other part of unspecified foot with unspecified severity; L97.509 - Non-pressure chronic ulcer of other part of unspecified foot with unspecified severity; L97.509 - Non-pressure chronic ulcer of other part of unspecified foot with unspecified severity; Z79.4 - joint terminal attack controller (current) use of insulin; Z79.4 - shelter (current) use of insulin; Z79.4 - joint terminal attack controller (current) use of insulin; Z79.4 - shelter (current) use of insulin - Discharge Medications Prescriptions: Ceftriaxone Sodium [Ceftriaxone] 2 gm IV DAILY #35 vial.port Oxycodone HCl [Oxaydo] 5 mg PO Q4H #20 tablet.orl Home Medications: Atorvastatin [Lipitor] 20 mg PO QPM 06/11/15 [History] Cholecalciferol (Vitamin D3) [Vitamin D3] 10,000 unit PO QWEEK PRN 06/11/15 [ History] Gabapentin [Neurontin] 600 mg PO TID 06/11/15 [History] Ibuprofen [Motrin] 800 mg PO TID PRN 06/11/15 [History] Insulin ASPART [NovoLOG] 0 - 12 unit SQ AD PRN 06/11/15 [History] Insulin Glargine,Hum.rec.anlog [Lantus Solostar] 50 units SQ QPM 06/11/15 [ History] Metoprolol [Lopressor] 25 mg PO DAILY 06/11/15 [History] Quetiapine Fumarate [Seroquel] 100 mg PO HS 06/11/15 [History] SUMAtriptan Succinate [Imitrex] 100 mg PO AD PRN 06/11/15 [History] Aspirin [Lo-Dose Aspirin EC] 81 mg PO DAILY 10/10/17 [History] Buprenorphine HCl/Naloxone HCl [Suboxone 8 mg-2 mg Sl Film] 1 film SL BID [History] Lisinopril-HCTZ 20-12.5 [Prinzide 20-12.5] 1 tab PO DAILY 10/10/17 [History] Omeprazole [PriLOSEC] 20 mg PO DAILY 10/10/17 [History] Ceftriaxone Sodium [Ceftriaxone] 2 gm IV DAILY #35 vial.port 10/16/17 [Rx] Oxycodone HCl [Oxaydo] 5 mg PO Q4H #20 tablet.orl 10/16/17 [Rx] Allergies/Adverse Reactions: 3 Allergy/AdvReac Type Severity Reaction Status Date / Time Penicillins Allergy Swelling Verified 10/10/17 08:33 of Lip/Tongue/Throat Date of admission: 10/09/17 22:29 Primary care physician: Alejandro Le Consults: 10/09/17 22:34 Consult to Podiatry [CONS] Routine Consulting Provider: Podiatry [facility] Reason for Consult: cellulitis, wounds Call Completed: No 10/09/17 22:36 Consult for Pharmacy Education [CONS] Routine Reason for Consult: antibiotic renal dosing Call Completed: No 10/10/17 01:13 Consult to Wound Care [CONS] Routine Reason for Consult: right foot ulcer Call Completed: No 10/11/17 11:33 PICC LINE [Consult to Invasive Line Access Team] [CONS] Routine Reason for Consult: Acute osteomyelitis, prolonged IV antibiotics Line Type: PICC 10/13/17 08:49 Consult to Infectious Diseases [CONS] Routine Consulting Provider: Infectious Disease [facility] Reason for Consult: GPC gas gangrene and calcaneal OM, for prolongd a/b, PICC already placed. Pls evaluate. Thanks. Call Completed: Yes 10/14/17 13:11 Consult to Occupational Therapy [CONS] Routine Comment: Evaluate, develop and implement POC Reason for Consult: recent wound vac placement to heal Consult to Physical Therapy [CONS] Routine Comment: Evaluate, develop and implement POC Reason for Consult: recent wound vac on heal Discharging clinician: Cliff Figueroa Anticipated date of discharge: 10/16/17 - Patient Status Disposition: Home Health Service Condition: Fair Functional capacity at discharge: wheelchair bound - Discharge Instructions Follow Up With: Danielle Ovalle, FIELD TECHNICAL SPECIALIST [Advanced Practice Nurse] - 10/26/17 8:40 am Alejandro Le DO [Primary Care Provider] - Forms: Inpatient Work/School Release - Diet and Activity Activity: resume usual activities as tolerated Diet: diabetic diet, low fat, low cholesterol, low salt diet Interval History: See below Hospital course: Ms. Larson is a 46-year-old female with uncontrolled type 2 diabetes mellitus Patient is admitted and being managed for infected and gangrenous diabetic foot ulcer, as well as acute kidney injury and Right calcaneal OM She is POD 6 s/p debridement, intra-op findings included dog hair in her wound, deep presence of pus and gangrene, bone biopsies and cultures were taken POD 2 s/p irrigation and wound vac placement She is denying new complains today Her renal function is back to baseline Wound culture and bone growing Strep mitis sensitive to ceftriaxone, discharged on same for 5 more weeks No anerobes on culture, discontinued Flagyl. Medically stable for discharge to folow up with Infectious disease an PCP Details as in each diagnosis - Time Spent with Patient Total time spent providing and/or coordinating discharge services: Greater than 30 minutes - Constitutional Vitals: Temp Pulse Resp BP Pulse Ox 98.2 F 84 17 120/76 95 10/16/17 11:26 10/16/17 11:26 10/16/17 11:26 10/16/17 11:26 10/16/17 11:26 General appearance: Present: cooperative, A&O X 3, pleasant, no acute distress, obese, answers questions appropriately - Head Head exam: Present: atraumatic, normocephalic - Eye Eye exam: Present: PERRL, conjuntiva pink, sclera anicteric Pupils: Present: PERRL - Neck Neck exam general surgery: Present: supple, trachea midline. Absent: lymphadenopathy - Respiratory Respiratory exam: Present: CTAB. Absent: accessory muscle use, rales, rhonchi, wheezes - Cardiovascular Cardiovascular exam: Present: RRR, +S1, +S2. Absent: diastolic murmur, gallop, rubs, systolic murmur - GI/Abdominal GI/Abdominal exam: Present: normal bowel sounds, soft, no peritoneal signs. Absent: distended, tenderness - Extremities Exam Extremities exam: Present: warm, radial pulses palpable and symmetrical. Absent : calf tenderness, cyanotic, pedal edema Additional comments: Right foot in wound vac Right heel with huge nectrotic ulcer,mild pus surrounding patient has no sensation on her feet - Neurological Exam Neurological exam: Present: alert, CN II-XII intact, oriented X3, no focal deficits. Absent: pronater drift, facial droop, speech deficit - Skin Skin exam: Present: dry, intact
--- NOTE | 2017-10-16 12:29 | Physician Discharge Referral ---
Home Health/Hosp Referral Info Transfer to: Home Health Attending Provider: Guadalupe Figueroa Provider in Charge Post Discharge: PCP - Diagnosis (1) Osteomyelitis Priority: Primary Status: Acute (2) Diabetic foot ulcer Priority: Primary Status: Acute (3) Gas gangrene Priority: Primary Status: Acute (4) HTN (hypertension) Priority: Secondary Status: Chronic (5) Depression Priority: Secondary Status: Chronic (6) Anemia Priority: Secondary Status: Chronic (7) Acute kidney injury Priority: Primary Status: Resolved (8) Hyperlipidemia Priority: Secondary Status: Chronic (9) DVT prophylaxis Priority: Secondary Status: Resolved (10) Diabetes mellitus Priority: Secondary Status: Chronic - Respiratory Orders Smoking Cessation: Smoking cessation has been advised. For more information, call the [facility] [employer] Quit Line at 2-019-QMFE-NOW. - Dressing/Wound Care Site: wound VAC change on Monday, Monday, Monday.connected to 125 mmhg continuous suction. - Diet/Nutrition Diet/Nutrition Orders: Cardiac, No Concentrated Sweets - Activity Activity Orders: Up ad nixon - Services Needed Following services are medically necessary services: Nursing, Home Health Aide, Med Social Work, Home Infusion - Transfer Medications Prescriptions: Ceftriaxone Sodium [Ceftriaxone] 2 gm IV DAILY #35 vial.port Oxycodone HCl [Oxaydo] 5 mg PO Q4H #20 tablet.orl Home Medications: Atorvastatin [Lipitor] 20 mg PO QPM 06/11/15 [History] Cholecalciferol (Vitamin D3) [Vitamin D3] 10,000 unit PO QWEEK PRN 06/11/15 [ History] Gabapentin [Neurontin] 600 mg PO TID 06/11/15 [History] Ibuprofen [Motrin] 800 mg PO TID PRN 06/11/15 [History] Insulin ASPART [NovoLOG] 0 - 12 unit SQ AD PRN 06/11/15 [History] Insulin Glargine,Hum.rec.anlog [Lantus Solostar] 50 units SQ QPM 06/11/15 [ History] Metoprolol [Lopressor] 25 mg PO DAILY 06/11/15 [History] Quetiapine Fumarate [Seroquel] 100 mg PO HS 06/11/15 [History] SUMAtriptan Succinate [Imitrex] 100 mg PO AD PRN 06/11/15 [History] Aspirin [Lo-Dose Aspirin EC] 81 mg PO DAILY 10/10/17 [History] Buprenorphine HCl/Naloxone HCl [Suboxone 8 mg-2 mg Sl Film] 1 film SL BID [History] Lisinopril-HCTZ 20-12.5 [Prinzide 20-12.5] 1 tab PO DAILY 10/10/17 [History] Omeprazole [PriLOSEC] 20 mg PO DAILY 10/10/17 [History] Ceftriaxone Sodium [Ceftriaxone] 2 gm IV DAILY #35 vial.port 10/16/17 [Rx] Oxycodone HCl [Oxaydo] 5 mg PO Q4H #20 tablet.orl 10/16/17 [Rx] Allergies/Adverse Reactions: 3 Allergy/AdvReac Type Severity Reaction Status Date / Time Penicillins Allergy Swelling Verified 10/10/17 08:33 of Lip/Tongue/Throat Certification: Further, I certify that my clinical findings support that this patient is homebound (i.e. absences from home require considerable and taxing effort and are for medical reasons or jew services or infrequently or short duration when for other reasons) because: Homebound Reason: Patient requires assistance of a person or device to safely leave home Attestation: My signature below is to certify that this patient is under my care and that I, or nurse practitioner, or a physician's process assistant working with me, has a face-to -face encounter with this patient.
--- NOTE | 2017-10-16 12:54 | Podiatry Progress Note ---
Date of Encounter: 10/16/17 Time of Encounter: 12:00 - Assessment and Plan (1) Diabetes mellitus Current Visit: Yes Status: Chronic Qualifiers: Diabetes mellitus type: type 2 Diabetes mellitus complication status: with skin complications Diabetes mellitus complication detail: with foot ulcer Diabetes mellitus technician terminal and repeater insulin use: with mcc use Qualified Code(s) : E11.621 - Type 2 diabetes mellitus with foot ulcer; L97.509 - Non-pressure chronic ulcer of other part of unspecified foot with unspecified severity; L97.509 - Non-pressure chronic ulcer of other part of unspecified foot with unspecified severity; L97.509 - Non-pressure chronic ulcer of other part of unspecified foot with unspecified severity; L97.509 - Non-pressure chronic ulcer of other part of unspecified foot with unspecified severity; 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 There is soft tissue gas extending to involve the calcaneus. Findings are consistent with gas-forming bacterial infection and osteomyelitis. Additional soft tissue gas within the lateral soft tissues of the midfoot consistent with additional site of gas-forming bacterial infection. S/p Irrigation and debridement with incision and drainage of heel ulcer of right foot. Bone biopsy calcaneus, right foot. Incision and drainage of abscess of the distal right foot by Dr. Chahal on 10/15, washout on 10/13/17. 100 ccs of sanguineous drainage observed to canister. Hgb A1C: 12 WBC: 11.7 Microbiology 10/10/17 17:45 Right Foot Anaerobic Culture - Final No anaerobes were recovered. 10/10/17 01:57 Peripheral Venipuncture Blood Culture - Final No growth. 10/10/17 01:57 Peripheral Venipuncture Blood Culture - Final No growth. 10/10/17 17:45 Right Foot Surgical Biopsy Culture - Final Streptococcus mitis/S.oralis 10/10/17 01:20 Right Foot Wound Culture - Final Streptococcus mitis/S.oralis Plan: Wound vac changed at the bedside with small black simplace wound vac sponge, connected to 125 mmhg continuous suction. Remain non weight bearing to RLE. Antibiotic therapy per ID. Wound vac will need to be changed every M-W- with home health care. Patient needs to f/u with Dr. Chahal in Podiatry clinic in one week after discharge from hospital. Qualifiers: Diabetic foot ulcer location: heel Diabetes mellitus type: type 2 Laterality: right Non-pressure ulcer stage: with fat layer exposed Qualified Code(s): E11.621 - Type 2 diabetes mellitus with foot ulcer; L97.412 - Non-pressure chronic ulcer of right heel and midfoot with fat layer exposed; L97.412 - Non-pressure chronic ulcer of right heel and midfoot with fat layer exposed; L97.412 - Non-pressure chronic ulcer of right heel and midfoot with fat layer exposed; L97.412 - Non-pressure chronic ulcer of right heel and midfoot with fat layer exposed Subjective Principal diagnosis: Right foot infection Interval history: Patient is s/p Irrigation and debridement with incision and drainage of heel ulcer of right foot. Bone biopsy calcaneus, right foot, Incision and drainage of abscess of the distal right foot by Dr. Chahal on 10/10/17 for Osteomyelitis and gas-forming bacterial infection. Patient went for a washout on 10/13/17. Patient sitting up in bed with wound vac intact to the right foot. Patient denies any fever, chills, chest pain, shortness of breath, or calf pain. Patient rates her right foot pain at 4 out of 10. Objective - Vital Signs Vital Signs: Vital Signs Temp Pulse Resp BP Pulse Ox 10/16/17 11:26 98.2 F 84 17 120/76 95 10/16/17 07:13 97 F L 88 17 163/96 94 10/16/17 03:00 97.9 F 80 16 125/72 94 10/15/17 23:00 98.8 F 85 16 170/102 92 10/15/17 19:00 98.3 F 93 16 135/72 92 10/15/17 15:15 98.3 F 91 15 158/94 95 Intake and Output 10/15/17 10/16/17 10/16/17 23:59 07:59 15:59 Intake Total 240 / 240 Output Total 100 / 100 Balance 140 / 140 Intake: Oral 240 / 240 Output: Wound Drainage 100 / 100 Right Foot 100 / 100 Other: Meal Breakfast Percent of Meal Consumed 100% # Voids 2 1 Weight 91.217 kg Blood Glucose* 157 179 Patient Weight 10/16/17 23:59 Weight 91.217 kg - Exam Exam: General appearance: alert awake oriented X 3. Calm and pleasant, no acute distress.. Vascular: Right foot: Pedal pulses +2/4 DP/PT , No evidence of cyanosis, pallor or rubor, Edema graded at 2+/4, Skin Temperature warm, No calf pain with manual compression. capillary refill time is immediate to digits. Neurologic: Sensation diminished with light touch to foot. . Ulcer: Full thickness surgical wound to the right heel measuring 4 cm in length x 8 cm in width x 2 cm in depth, base of wound with red granulation tissue and yellow tissue, bone is exposed. Open surgical wound to the lateral aspect of the 5th metatarsal measuring 3.5 cm in length x 1 cm in width x 1.9 cm in depth , no purulent drainage, no odor, erythema is resolving. - Lab Result Diagrams: 10/16/17 06:45 10/16/17 06:45 Labs: Abnormal lab results WBC 11.7 K/mcL (4.3-11.1) H 10/16/17 06:45 RBC 2.84 M/mcL (3.82-4.97) L 10/16/17 06:45 Hgb 8.7 g/dL (11.5-15.4) L 10/16/17 06:45 Hct 26.1 % (35.3-44.9) L 10/16/17 06:45 MPV 9.1 fL (9.4-12.4) L 10/16/17 06:45 Nucleated RBCs/100 WBC 0.2 /100 WBC (0) H 10/13/17 05:40 ESR 84 mm/hr (0-15) H 10/12/17 00:10 PT 14.3 Seconds (9.4-12.1) H 10/09/17 22:59 BUN 26 mg/dL (7-20) H 10/16/17 06:45 BUN/Creatinine Ratio 27 (6-26) H 10/16/17 06:45 Glucose 177 mg/dL (70-99) H 10/16/17 06:45 POC Glucose 157 (58-89) H 10/15/17 19:07 Hemoglobin A1c 12.0 % (-5.6) H 10/09/17 22:59 Calcium 8.5 mg/dL (8.6-10.8) L 10/16/17 06:45 Transferrin 93 mg/dL (180-382) L 10/10/17 01:57 Alkaline Phosphatase 146 Units/L (38-126) H 10/09/17 22:59 C-Reactive Protein 218 mg/L (Less than 5) H 10/10/17 13:50 Albumin 2.2 g/dL (3.5-5.0) L 10/09/17 22:59 Globulin 5.1 g/dL (2.4-3.5) H 10/09/17 22:59 Albumin/Globulin Ratio 0.4 (1.1-2.2) L 10/09/17 22:59 Triglycerides 300 mg/dL (< 150) H 10/10/17 01:57 VLDL Cholesterol, Calc 60 mg/dL (< 31) H 10/10/17 01:57 HDL Cholesterol 16 mg/dL (40-59) L 10/10/17 01:57 Cholesterol/HDL Ratio 8.2 (0-4.9) H 10/10/17 01:57 Urine Microscopic RBC 5-15 per hpf (0-3) H 10/09/17 23:55 Ur Squamous Epith Cells Many per lpf (None-Few) H 10/09/17 23:55 Stool Occult Blood Positive (Negative) A 10/14/17 03:35 Microbiology, Last 48 Hours 10/10/17 17:45 Anaerobic Culture - Final Right Foot No anaerobes were recovered. 10/14/17 12:05 Wound Culture - Preliminary Right Foot No growth. 10/10/17 01:57 Blood Culture - Final Peripheral Venipuncture No growth. 10/10/17 01:57 Blood Culture - Final Peripheral Venipuncture No growth. Consult Discharge Plan - Plan Referrals: Danielle Ovalle SKIN CARVER [Advanced Practice Nurse] - 10/26/17 8:40 am Alejandro Le DO [Primary Care Provider] - Prescriptions: Ceftriaxone Sodium [Ceftriaxone] 2 gm IV DAILY #35 vial.port Oxycodone HCl [Oxaydo] 5 mg PO Q4H #20 tablet.orl
--- NOTE | 2017-10-16 13:49 | Infectious Disease Progress No ---
Date of Encounter: 10/16/17 Time of Encounter: 13:47 - Assessment and Plan (1) Sepsis Current Visit: Yes Status: Acute The patient had two SIRS criteria on admission with ROGER. Likely secondary to right foot infection. Improved. WBC trending down. Tachycardia has resolved. Renal function has normalized. Blood cultures drawn 10/10/17 are negative x 2 sets. Qualifiers: Sepsis type: sepsis due to unspecified organism Qualified Code(s): A41.9 - Sepsis, unspecified organism (2) Osteomyelitis Current Visit: Yes Status: Acute Location: Right foot calcaneus. Causative organism: Strep mitis, but concern for anaerobes due to soft tissue gas. Likely secondary to right heel ulcer. X-ray of the right foot showed soft tissue gas, but no OM. CT of the foot showed OM and extensive ST gas. Podiatry consulted. Status post I & D with incision and drainage of the right heel ulcer with bone biopsy of the calcaneus and I & D of the right distal foot abscess 10/10/[address] Chahal. Operative note reviewed. Gross purulence noted. Intra-op cultures positive for S. mitis. Post-op ESR 84. Status post irrigation and debridement of the right foot ulcerations with application of wound VAC 10/13/[address] Chahal. Continue Rocephin 2 grams IV daily. The patient has a documented allergy to PCN , but has been tolerating Cefepime without a problem. Continue flagyl 500mg PO TID to cover for possible anaerobes as well. Duration of treatment depends on the clinical picture, but likely 6 weeks of IV antibiotics. Wound care and activity restrictions per the podiatry team. Will need weekly CBC, BUN/Cr, ESR, and CRP every Monday. Will need weekly EPIV care. Follow up with ID 10/26/17 at 0840. Qualifiers: Osteomyelitis type: unspecified type Osteomyelitis location: foot Laterality: right Qualified Code(s): M86.9 - Osteomyelitis, unspecified (3) Gas gangrene Current Visit: Yes Status: Acute Location: Right foot. Continue antibiotics as above. (4) Acute kidney injury Current Visit: Yes Status: Resolved Likely secondary to sepsis. Resolved. (5) Tobacco abuse Current Visit: Yes Status: Chronic (6) Diabetic foot ulcer Current Visit: Yes Status: Acute Location: Right heel. Etiology unclear. Wound care per the podiatry team's recommendations. Qualifiers: Diabetic foot ulcer location: heel Diabetes mellitus type: type 2 Laterality: right Non-pressure ulcer stage: with fat layer exposed Qualified Code(s): E11.621 - Type 2 diabetes mellitus with foot ulcer; L97.412 - Non-pressure chronic ulcer of right heel and midfoot with fat layer exposed; L97.412 - Non-pressure chronic ulcer of right heel and midfoot with fat layer exposed; L97.412 - Non-pressure chronic ulcer of right heel and midfoot with fat layer exposed; L97.412 - Non-pressure chronic ulcer of right heel and midfoot with fat layer exposed (7) Peripheral neuropathy Current Visit: No Status: Chronic Qualifiers: Peripheral neuropathy type: polyneuropathy, unspecified Qualified Code(s): G62.9 - Polyneuropathy, unspecified (8) HTN (hypertension) Current Visit: Yes Status: Chronic Qualifiers: Hypertension type: essential hypertension Qualified Code(s): I10 - Essential (primary) hypertension (9) Diabetes mellitus Current Visit: Yes Status: Chronic Uncontrolled. HgbA1C 12%. Recommend aggressive glucose monitoring and control to promote wound healing and prevent re-infection. Management per the primary team. Qualifiers: Diabetes mellitus type: type 2 Diabetes mellitus complication status: with skin complications Diabetes mellitus complication detail: with foot ulcer Diabetes mellitus fpc insulin use: with fpc use Qualified Code(s) : E11.621 - Type 2 diabetes mellitus with foot ulcer; L97.509 - Non-pressure chronic ulcer of other part of unspecified foot with unspecified severity; L97.509 - Non-pressure chronic ulcer of other part of unspecified foot with unspecified severity; L97.509 - Non-pressure chronic ulcer of other part of unspecified foot with unspecified severity; L97.509 - Non-pressure chronic ulcer of other part of unspecified foot with unspecified severity; Z79.4 - 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 We can notes reviewed. No acute events noted overnight. Patient denies any fevers or chills or rigors. She denies any headache or neck pain. She denies any chest pain, shortness of breath, or cough. She denies any nausea, vomiting, diarrhea, or constipation. She denies abdominal pain, appetite changes, or urinary complaints. She does report pain in the right foot, worse during dressing changes. She denies any oral thrush or skin lesions. Infect Dis PN-Objective Data - Labs CBC & Chem 7: 10/16/17 06:45 10/16/17 06:45 Labs: Laboratory Results - last 24 hr 10/15/17 10/15/17 10/15/17 05:48 10:49 17:20 WBC RBC Hgb Hct MCV MCH MCHC RDW Plt Count MPV Immature Gran % Seg Neutrophils % Lymphocytes % Monocytes % Eosinophils % Basophils % Neutrophils # Lymphocytes # Monocytes # Eosinophils # Basophils # Sodium Potassium Chloride Carbon Dioxide BUN Creatinine Est GFR ( Amer) Est GFR (Non-Af Amer) BUN/Creatinine Ratio Glucose POC Glucose 63 152 H 73 Calculated Osmolality Calcium 10/15/17 10/16/17 10/16/17 19:07 06:45 06:45 WBC 11.7 H RBC 2.84 L Hgb 8.7 L Hct 26.1 L MCV 91.9 MCH 30.6 MCHC 33.3 RDW 13.2 Plt Count 352 MPV 9.1 L Immature Gran % 3.8 Seg Neutrophils % 62.0 Lymphocytes % 24.5 Monocytes % 5.6 Eosinophils % 3.4 Basophils % 0.7 Neutrophils # 7.3 Lymphocytes # 2.9 Monocytes # 0.7 Eosinophils # 0.4 Basophils # 0.1 Sodium 140 Potassium 4.4 Chloride 108 Carbon Dioxide 25 BUN 26 H Creatinine 0.96 Est GFR ( Amer) > 60 Est GFR (Non-Af Amer) > 60 BUN/Creatinine Ratio 27 H Glucose 177 H POC Glucose 157 H Calculated Osmolality 299 Calcium 8.5 L Cultures: Cultures 10/14/17 12:05 Wound Culture - Final Right Foot No growth. 10/10/17 17:45 Anaerobic Culture - Final Right Foot No anaerobes were recovered. 10/10/17 01:57 Blood Culture - Final Peripheral Venipuncture No growth. 10/10/17 01:57 Blood Culture - Final Peripheral Venipuncture No growth. 10/10/17 17:45 Surgical Biopsy Culture - Final Right Foot Streptococcus mitis/S.oralis 12/12/17 01:20 Wound Culture - Final Right Foot Streptococcus mitis/S.oralis Serology 10/14/17 10/09/17 Range/Units 03:35 23:55 Urine Color Yellow (Yellow) Urine Clarity Clear (Clear) Urine pH 6.0 (5.0-8.0) pH Units Ur Specific [place] 1.017 (1.010-1.025) Urine Protein Trace (Neg-Trace) mg/dL Urine Glucose (UA) Normal (Normal) mg/dL Urine Ketones Negative (Negative) mg/dL Urine Blood Negative (Negative) Urine Nitrite Negative (Negative) Urine Bilirubin Negative (Negative) Urine Urobilinogen Normal (Normal) mg/dL Ur Leukocyte Esterase Negative (Negative) Urine Microscopic RBC 5-15 H (0-3) per hpf Urine Microscopic WBC 0-3 (0-3) per hpf Ur Squamous Epith Cells Many H (None-Few) per lpf Urine Bacteria None Seen (None-Few) per hpf Hyaline Casts None Seen (None-Few) per lpf Stool Occult Blood Positive A (Negative) Exam - Constitutional Vitals: Temp Pulse Resp BP Pulse Ox 98.2 F 84 17 120/76 95 10/16/17 11:26 10/16/17 11:26 10/16/17 11:26 10/16/17 11:26 10/16/17 11:26 General appearance: cooperative, no acute distress, obese - Head Head exam: Present: atraumatic, normal inspection, normocephalic - Eye Eye exam: Present: EOMI, normal appearance, PERRL Pupils: Present: normal accommodation - ENT ENT exam: Present: mucous membranes moist - Neck Neck exam: Present: normal inspection - Respiratory Respiratory exam: Present: CTAB. Absent: rales, respiratory distress, rhonchi, wheezes - Cardiovascular Cardiovascular exam: Present: RRR, +S1, +S2 - GI/Abdominal GI/Abdominal exam: Present: distended (obese), normal bowel sounds, soft. Absent: tenderness - Extremities Exam Extremities exam: Present: tenderness (right foot). Absent: joint swelling, pedal edema Additional comments: Surgical site to the lateral aspect of the right foot and the calcaneus without redness, warmth, or purulent drainage. Calcaneus site with 90% slough noted to the wound bed. Tenderness noted with palpation. No fluctuance. - Neurological Exam Neurological exam: Present: alert, oriented X3, no focal deficits - Psychiatric Psychiatric exam: Present: normal affect, normal mood - Skin Skin exam: Present: dry, intact, normal color, warm Consult Discharge Plan - Plan Referrals: Danielle Ovalle CNP [Advanced Practice Nurse] - 10/26/17 8:40 am Alejandro Le DO [Primary Care Provider] - Prescriptions: Ceftriaxone Sodium [Ceftriaxone] 2 gm IV DAILY #35 vial.port Oxycodone HCl [Oxaydo] 5 mg PO Q4H #20 tablet.orl
[2017-10-16] MEDS: cefTRIAXone 2,000 MG in Water for inj. (sterile) 20 ML IVP SCH (17:34)
[2017-10-16] MEDS: Aspirin 81 MG TAB.CHEW PO SCH (19:51)
[2017-10-16] MEDS: *HR* OxyCODONE Immed Rel 5 MG TABLET PO PRN (20:39)
[2017-10-16] MEDS: Insulin DETEMIR 100 UNIT/ML X5UNITS SQ SCH (23:55)
[2017-10-17] MEDS: *HR* OxyCODONE Immed Rel 5 MG TABLET PO PRN ×2 (03:05→08:52)
[2017-10-17 03:20] LABS: Basophils # 0.1 K/mcL (0.0-0.2); Basophils % 0.6 %; Eosinophils # 0.4 K/mcL (0.0-0.6); Eosinophils % 3.4 %; Hematocrit 27.1 % (35.3-44.9); Hemoglobin 8.9 g/dL (11.5-15.4); Immature Granulocytes % 2.2 % (0-4); Lymphocytes # 3.3 K/mcL (0.6-4.6); Lymphocytes % 27.4 %; Mean Corpuscular HGB Conc 32.8 g/dL (31.6-35.5); Mean Corpuscular Hemoglobin 30.7 pg (28.0-33.3); Mean Corpuscular Volume 93.4 fL (83.0-100.0); Mean Platelet Volume 9.2 fL (9.4-12.4); Monocytes # 0.6 K/mcL (0.0-1.3); Monocytes % 5.2 %; Neutrophils # 7.3 K/mcL (1.6-8.9); Platelet Count 395 K/mcL (140-400); Red Cell Distribution Width 13.4 % (11.5-14.5); Segmented Neutrophils % 61.2 %
[2017-10-17 03:34] LABS: Blood Urea Nitrogen 31 mg/dL (7-20); Calcium 8.9 mg/dL (8.6-10.8); Carbon Dioxide 21 mEq/L (19-29); Chloride 108 mEq/L (98-109); Glucose 201 mg/dL (70-99); Osmolality,Calculated 298 (280-300); Potassium 4.1 mEq/L (3.5-4.5); Sodium 138 mEq/L (136-145)
[2017-10-17 03:54] LABS: BUN/Creatinine Ratio 30 (6-26); eGFR For African Americans > 60 (> 60); eGFR For Non-African Americans 56 (> 60)
[2017-10-17] MEDS ORDERED: Lactobacillus 1 EACH CAP.SPRINK PO SCH (04:08)
[2017-10-17] MEDS: *HR* Heparin 5,000 UNIT/ML VIAL SQ SCH (05:02)
[2017-10-17 07:34] VITALS: BP 152/90
[2017-10-17] MEDS: (Buprenorphine Hcl/Naloxone Hcl [Suboxone 8 Mg-2 Mg S) SL SCH (08:25)
[2017-10-17] MEDS: Insulin LISPRO 300 UNITS/3 ML VIAL SQ SCH ×2 (08:25→08:45)
[2017-10-17] MEDS: Gabapentin 300 MG CAPSULE PO SCH (08:43)
[2017-10-17] MEDS: Aspirin Enteric Coated 81 MG Tablet PO SCH (08:44)
[2017-10-17] MEDS: Nicotine 21 MG PATCH.TD24 TD SCH (08:44)
--- NOTE | 2017-10-17 12:59 | Infectious Disease Progress No ---
Date of Encounter: 10/17/17 Time of Encounter: 12:57 - Assessment and Plan (1) Sepsis Status: Acute The patient had two SIRS criteria on admission with ROGER. Likely secondary to right foot infection. Improved. WBC trending down. Tachycardia has resolved. Renal function has normalized. Blood cultures drawn 10/10/17 are negative x 2 sets. Qualifiers: Sepsis type: sepsis due to unspecified organism Qualified Code(s): A41.9 - Sepsis, unspecified organism (2) Osteomyelitis Status: Acute Location: Right foot calcaneus. Causative organism: Strep mitis, but concern for anaerobes due to soft tissue gas. Likely secondary to right heel ulcer. X-ray of the right foot showed soft tissue gas, but no OM. CT of the foot showed OM and extensive ST gas. Podiatry consulted. Status post I & D with incision and drainage of the right heel ulcer with bone biopsy of the calcaneus and I & D of the right distal foot abscess 10/10/[address] Chahal. Operative note reviewed. Gross purulence noted. Intra-op cultures positive for S. mitis. Post-op ESR 84. Status post irrigation and debridement of the right foot ulcerations with application of wound VAC 10/13/[address] Chahal. Continue Rocephin 2 grams IV daily. The patient has a documented allergy to PCN , but has been tolerating Cefepime without a problem. Continue flagyl 500mg PO TID to cover for possible anaerobes as well. Duration of treatment depends on the clinical picture, but likely 6 weeks of IV antibiotics. Wound care and activity restrictions per the podiatry team. Will need weekly CBC, BUN/Cr, ESR, and CRP every Monday. Will need weekly EPIV care. Follow up with ID 10/26/17 at 0840. Qualifiers: Osteomyelitis type: unspecified type Osteomyelitis location: foot Laterality: right Qualified Code(s): M86.9 - Osteomyelitis, unspecified (3) Gas gangrene Status: Acute Location: Right foot. Continue antibiotics as above. (4) Acute kidney injury Status: Resolved Likely secondary to sepsis. Resolved. (5) Tobacco abuse Status: Chronic (6) Diabetic foot ulcer Status: Acute Location: Right heel. Etiology unclear. Wound care per the podiatry team's recommendations. Qualifiers: Diabetic foot ulcer location: heel Diabetes mellitus type: type 2 Laterality: right Non-pressure ulcer stage: with fat layer exposed Qualified Code(s): E11.621 - Type 2 diabetes mellitus with foot ulcer; L97.412 - Non-pressure chronic ulcer of right heel and midfoot with fat layer exposed; L97.412 - Non-pressure chronic ulcer of right heel and midfoot with fat layer exposed; L97.412 - Non-pressure chronic ulcer of right heel and midfoot with fat layer exposed; L97.412 - Non-pressure chronic ulcer of right heel and midfoot with fat layer exposed (7) Peripheral neuropathy Status: Chronic Qualifiers: Peripheral neuropathy type: polyneuropathy, unspecified Qualified Code(s): G62.9 - Polyneuropathy, unspecified (8) HTN (hypertension) Status: Chronic Qualifiers: Hypertension type: essential hypertension Qualified Code(s): I10 - Essential (primary) hypertension (9) Diabetes mellitus Status: Chronic Uncontrolled. HgbA1C 12%. Recommend aggressive glucose monitoring and control to promote wound healing and prevent re-infection. Management per the primary team. Qualifiers: Diabetes mellitus type: type 2 Diabetes mellitus complication status: with skin complications Diabetes mellitus complication detail: with foot ulcer Diabetes mellitus snf insulin use: with snf use Qualified Code(s) : E11.621 - Type 2 diabetes mellitus with foot ulcer; L97.509 - Non-pressure chronic ulcer of other part of unspecified foot with unspecified severity; L97.509 - Non-pressure chronic ulcer of other part of unspecified foot with unspecified severity; L97.509 - Non-pressure chronic ulcer of other part of unspecified foot with unspecified severity; L97.509 - Non-pressure chronic ulcer of other part of unspecified foot with unspecified severity; Z79.4 - terminologist (current) use of insulin; Z79.4 - terminologist (current) use of insulin; Z79.4 - assisted (current) use of insulin; Z79.4 - terminologist (current) use of insulin - Subjective Interval history: Patient seen examined. No acute events noted overnight. Patient denies any fevers or chills or rigors. She denies any headache or neck pain. She denies any chest pain, shortness of breath, or cough. She denies any nausea, vomiting, diarrhea, or constipation. She denies abdominal pain, appetite changes, or urinary complaints. She does report pain in the right foot, worse during dressing changes. She denies any oral thrush or skin lesions. Is awaiting discharge later today. Infect Dis PN-Objective Data - Labs CBC & Chem 7: 10/17/17 03:10 10/17/17 03:10 Labs: Laboratory Results - last 24 hr 10/16/17 10/17/17 10/17/17 20:47 03:10 03:10 WBC 12.0 H RBC 2.90 L Hgb 8.9 L Hct 27.1 L MCV 93.4 MCH 30.7 MCHC 32.8 RDW 13.4 Plt Count 395 MPV 9.2 L Immature Gran % 2.2 Seg Neutrophils % 61.2 Lymphocytes % 27.4 Monocytes % 5.2 Eosinophils % 3.4 Basophils % 0.6 Neutrophils # 7.3 Lymphocytes # 3.3 Monocytes # 0.6 Eosinophils # 0.4 Basophils # 0.1 Sodium 138 Potassium 4.1 Chloride 108 Carbon Dioxide 21 BUN 31 H Creatinine 1.05 Est GFR ( Amer) > 60 Est GFR (Non-Af Amer) 56 L BUN/Creatinine Ratio 30 H Glucose 201 H POC Glucose 128 H Calculated Osmolality 298 Calcium 8.9 Cultures: Cultures 10/14/17 12:05 Anaerobic Culture - Preliminary Right Foot At this time, no anaerobic growth is present. The culture will be finalized after 5 days of incubation. 10/14/17 12:05 Wound Culture - Final Right Foot No growth. 10/10/17 17:45 Anaerobic Culture - Final Right Foot No anaerobes were recovered. 10/10/17 01:57 Blood Culture - Final Peripheral Venipuncture No growth. 10/10/17 01:57 Blood Culture - Final Peripheral Venipuncture No growth. 10/10/17 17:45 Surgical Biopsy Culture - Final Right Foot Streptococcus mitis/S.oralis 10/10/17 01:20 Wound Culture - Final Right Foot Streptococcus mitis/S.oralis Serology 10/14/17 10/09/17 Range/Units 03:35 23:55 Urine Color Yellow (Yellow) Urine Clarity Clear (Clear) Urine pH 6.0 (5.0-8.0) pH Units Ur Specific Cecilia 1.017 (1.010-1.025) Urine Protein Trace (Neg-Trace) mg/dL Urine Glucose (UA) Normal (Normal) mg/dL Urine Ketones Negative (Negative) mg/dL Urine Blood Negative (Negative) Urine Nitrite Negative (Negative) Urine Bilirubin Negative (Negative) Urine Urobilinogen Normal (Normal) mg/dL Ur Leukocyte Esterase Negative (Negative) Urine Microscopic RBC 5-15 H (0-3) per hpf Urine Microscopic WBC 0-3 (0-3) per hpf Ur Squamous Epith Cells Many H (None-Few) per lpf Urine Bacteria None Seen (None-Few) per hpf Hyaline Casts None Seen (None-Few) per lpf Stool Occult Blood Positive A (Negative) Exam - Constitutional Vitals: Temp Pulse Resp BP Pulse Ox 98.0 F 96 18 152/90 98 10/17/17 07:29 10/17/17 07:29 10/17/17 07:29 10/17/17 07:29 10/17/17 07:29 General appearance: average body habitus, cooperative, no acute distress - Head Head exam: Present: atraumatic, normal inspection, normocephalic - Eye Eye exam: Present: EOMI, normal appearance, PERRL Pupils: Present: normal accommodation - ENT ENT exam: Present: mucous membranes moist - Neck Neck exam: Present: normal inspection - Respiratory Respiratory exam: Present: CTAB. Absent: rales, respiratory distress, rhonchi, wheezes - Cardiovascular Cardiovascular exam: Present: RRR, +S1, +S2 - GI/Abdominal GI/Abdominal exam: Present: normal bowel sounds, soft. Absent: distended, tenderness - Extremities Exam Additional comments: Right foot wound VAC dressing intact with sponge well-compressed. - Neurological Exam Neurological exam: Present: alert, oriented X3, no focal deficits - Psychiatric Psychiatric exam: Present: normal affect, normal mood - Skin Skin exam: Present: dry, intact, normal color, warm Consult Discharge Plan - Plan Instructions: Oxycodone/Acetaminophen (By mouth), Ceftriaxone (Injection), Osteomyelitis (DC) Referrals: Danielle Ovalle, FARTUN [Advanced Practice Nurse] - 10/26/17 8:40 am Alejandro Le DO [Primary Care Provider] - Prescriptions: Ceftriaxone Sodium [Ceftriaxone] 2 gm IV DAILY #35 vial.port Oxycodone HCl [Oxaydo] 5 mg PO Q4H #20 tablet.orl
== END 2017-10-17 11:16 | disposition home health service (06) | DRG 854 ==
LOC: 3BNU → SUATTDRO 22:29
PROVIDERS: ADMIT Family Medicine; ATTEND Internal Medicine

== ENCOUNTER 2018-01-09 12:14 | Inpatient (IN) ==
--- NOTE | 2018-01-09 14:26 | Infectious Disease Consult ---
Date of Encounter: 01/09/18 Time of Encounter: 14:21 Assessment and Plan (1) Sepsis Status: Acute Assessment and plan: The patient has two SIRS criteria. Likely secondary to bacteremia. Blood culture sdrawn 01/08/18 are positive 2/2 sets for GPC, MRSA per PCR. Repeat CBC and BMP now. Repeat blood cultures x 2 sets now. Get lactic acid. Qualifiers: Sepsis type: sepsis due to unspecified organism Qualified Code(s): A41.9 - Sepsis, unspecified organism (2) Bacteremia Status: Acute Assessment and plan: Causative organism: MRSA per PCR. Source: Unclear. The patient has a non-healing surgical/diabetic foot ulcer to the right foot, but per Dr. Snider, this does not appear infected. Uncomplicated - the patient does not have any indwelling hardware or evidence of septic emboli. Blood cultures drawn 01/08/18 are positive 2/2 sets. She has no endocarditis stigmata noted on exam. She has one major Modified Sosa's Criteria. The patient will need a TTE prior to discharge. If negative, may need to consider a ELYSE depending on the clinical picture. Start Vancomycin IV. Pharmacy to dose. Goal trough ~15. Monitor renal function and for drug toxicity and dose-adjust antibiotics. Duration of treatment depends on the clinical picture. We will continue to follow. (3) Nonhealing surgical wound Status: Acute Assessment and plan: Location: Right heel. Secondary to right foot I & D for OM of the right calcaneus in September 2017. Per wound care notes, has had improvement in the size of the wound and clinically does not appear infected. Podiatry to evaluate. Check ESR and CRP. Get a wound culture when the patient's wound VAC is removed. Consider imaging of the foot to evaluate for osteomyelitis. Wound care and activity restrictions per the podiatry team. Qualifiers: Encounter type: subsequent encounter Qualified Code(s): T81.89XD - Other complications of procedures, not elsewhere classified, subsequent encounter (4) Diabetic foot ulcer Status: Acute Assessment and plan: Location: Right heel. See recommendations above. Qualifiers: Diabetic foot ulcer location: heel Diabetes mellitus type: type 2 Laterality: right Non-pressure ulcer stage: with fat layer exposed Qualified Code(s): E11.621 - Type 2 diabetes mellitus with foot ulcer; L97.412 - Non-pressure chronic ulcer of right heel and midfoot with fat layer exposed; L97.412 - Non-pressure chronic ulcer of right heel and midfoot with fat layer exposed; L97.412 - Non-pressure chronic ulcer of right heel and midfoot with fat layer exposed; L97.412 - Non-pressure chronic ulcer of right heel and midfoot with fat layer exposed (5) Diabetes mellitus Status: Chronic Assessment and plan: Controlled. The patient's HgbA1C has gone from 12% to 7.9% in one month. Recommend aggressive glucose monitoring and control to promote wound healing and prevent re-infection. Qualifiers: Diabetes mellitus type: type 2 Diabetes mellitus retirement insulin use: with retirement use Diabetes mellitus complication status: with skin complications Diabetes mellitus complication detail: with foot ulcer Qualified Code(s): E11.621 - Type 2 diabetes mellitus with foot ulcer; L97.509 - Non-pressure chronic ulcer of other part of unspecified foot with unspecified severity; L97.509 - Non-pressure chronic ulcer of other part of unspecified foot with unspecified severity; L97.509 - Non-pressure chronic ulcer of other part of unspecified foot with unspecified severity; L97.509 - Non-pressure chronic ulcer of other part of unspecified foot with unspecified severity; Z79.4 - extermination inspector (current) use of insulin; Z79.4 - extermination inspector (current) use of insulin; Z79.4 - MCC (current) use of insulin; Z79.4 - MCC (current ) use of insulin (6) Peripheral neuropathy Status: Chronic Qualifiers: Peripheral neuropathy type: polyneuropathy, unspecified Qualified Code(s): G62.9 - Polyneuropathy, unspecified (7) Tobacco abuse Status: Chronic Assessment and plan: Discussed the importance of smoking cessation with the patient and how it can affect the healing of the wound. Infectious Disease HPI - Data of Consult Patient: known to practice within the last 3 years Consult date: 01/09/18 Primary Care Provider: Alejandro Le - Consult Narrative Reason for consult: MRSA bacteremia History of present illness: Ms. Larson is a 47 year old female with a past medical history of hypertension, hyperlipidemia, and uncontrolled diabetes. The patient was admitted to the hospital 01/09/18 for bacteremia. We are consulted 01/09/18 for antibiotic recommendations for bacteremia. Briefly, the patient is a 47 year old female with a past medical history as stated above. The patient is well-known to the ID service as we were consulted on her case during her most recent foot infection. The patient had undergone a right great toe graft placement back in July. Post-she developed and right heel ulcer due to offloading the toe wound. The wound had sudden regression at the beginning of September and was transferred here for podiatry evaluation. Upon arrival, the patient had sepsis-like picture and ROGER. She was evaluated by podiatry and taken to the OR on October 10 and had an I & D with incision and drainage of the right heel ulcer with bone biopsy of the right calcaneus, I & D of an abscess on the right distal foot. Wound culture was positive for S. mitis. Pathology was suspicious for osteomyelitis. Blood cultures were negative. Her sepsis and ROGER resolved. She was discharged home to complete a 6 week course of IV Rocephin and PO flagyl, which she completed on 11/29/17 and was transitioned to PO Omnicef to complete an additional 14 days. Her inflammatory markers improved, but had not normalized, but her clinical picture was consistent with no acute infection and her wound was improving. She continued to follow with Dr. Snider in the wound clinic. On December 21, she had an Apligraf applied and the wound VAC was removed. She was re-evaluated in the wound clinic on December 27 and had application of Apligraf and wound VAC. She was seen again yesterday and noted to have general malaise, fatigue, and tachycardia. She had labs drawn that revealed MRSA bacteremia 2/2 sets and leukocytosis. She was called and told to come back to the ER. Upon arrival, the patient is afebrile, but she is tachycardic. No labs have been drawn today. During my exam today, the patient states that for the past 3 days she has had intermittent chills, but denies known fever or rigors. The patient's states that when he woke up to go to work this morning, the patient was asleep in the chair and was twitching and talking in her sleep. She denies headache or neck pain. She denies blurred vision or floaters. She denies back pain, abdominal pain, or urinary complaints. She denies chest pain, shortness of breath, or cough. Denies nausea, vomiting, or diarrhea, but states she hasn't had much of an appetite. She reports her blood sugars have been very high recently, sometimes in the 400's, but it was normal this morning. Denies pain in her foot, but states she has minimal feeling due to her neuropathy. She states she saw Dr. Snider in the wound clinic yesterday and he was happy with how the wound looks and it does not appear acutely infected. The patient lives at home with her family. She does not work outside the home. She smokes about a pack of cigarettes per day. She denies alcohol or illicit drug use. CC: Past Med Surg Social Fam HX - Past Medical History Attestation: Yes The following information was validated with the patient. Source: patient, old records reviewed, nursing notes reviewed Medical history: diabetes, GERD, hypertension, other (Right foot OM September 2017) Psychiatric history: depression - Past Surgical History Surgical History: hysterectomy, other (Right foot I & D) - Social History Smoking Status: Current every day smoker Packs per day: 1 Smokeless Tobacco Status: No Alcohol use: none Drug use: none Occupational status: unemployed Current living situation: Home, With Family Activity Level: Independent ambulation Recent Out of Country Travel Within the Last 8 Weeks: No Exposure or Possible Exposure to Illness During Travel: No - Family History Sister Hx Family Endocrine Disorder: Yes (Diabetes) Grandfather Hx Family Cardiac Disorders: Yes (Coronary artery disease at age 50) Father Family Member Ethnicity: Non- Living Status: Still Living Hx Family Cardiac Disorders: Yes Hx Family Respiratory Disorders: No Hx Family Cancer: Yes Hx Family GI Disorders: No Hx Family Endocrine Disorder: Yes Hx Family Neuromuscular Disorders: No Hx Family Neurologic Disorders: No Hx Family HEENT Disorders: No Hx Family Autoimmune Disorders: No Infectious Disease-CN:Meds Atorvastatin [Lipitor] 20 mg PO QPM 06/11/15 [History] Cholecalciferol (Vitamin D3) [Vitamin D3] 10,000 unit PO WE 06/11/15 [History] Ibuprofen [Motrin] 800 mg PO TID PRN 06/11/15 [History] Insulin ASPART [NovoLOG] 0 - 12 unit SQ AD PRN 06/11/15 [History] Insulin Glargine,Hum.rec.anlog [Lantus Solostar] 30 units SQ QPM 06/11/15 [ History] Quetiapine Fumarate [Seroquel] 100 mg PO HS 06/11/15 [History] Aspirin [Lo-Dose Aspirin EC] 81 mg PO DAILY 10/10/17 [History] Lisinopril-HCTZ 20-12.5 [Prinzide 20-12.5] 1 tab PO DAILY 10/10/17 [History] Omeprazole [PriLOSEC] 20 mg PO DAILY 10/10/17 [History] Ceftriaxone Sodium [Ceftriaxone] 2 gm IV DAILY #35 vial.port 10/16/17 [Rx] Gabapentin [Neurontin] 800 mg PO TID 11/23/17 [History] Oxycodone HCl [Oxaydo] 5 mg PO Q4H PRN 11/23/17 [History] 3 Allergy/AdvReac Type Severity Reaction Status Date / Time Penicillins Allergy Swelling Verified 11/23/17 12:37 of Lip/Tongue/Throat All systems: reviewed and no additional remarkable complaints except as stated Exam - Constitutional Vitals: Temp Pulse Resp BP Pulse Ox 97.9 F 123 18 151/82 96 01/09/18 12:42 01/09/18 12:42 01/09/18 12:42 01/09/18 12:42 01/09/18 12:42 General appearance: average body habitus, cooperative, no acute distress - Head Head exam: Present: atraumatic, normal inspection, normocephalic - Eye Eye exam: Present: EOMI, normal appearance, PERRL Pupils: Present: normal accommodation Additional comments: No subconjunctival hemorrhage noted. - ENT ENT exam: Present: mucous membranes moist - Neck Neck exam: Present: normal inspection - Respiratory Respiratory exam: Present: CTAB. Absent: rales, respiratory distress, rhonchi, wheezes - Cardiovascular Cardiovascular exam: Present: +S1, +S2, tachycardia. Absent: irregular rhythm - GI/Abdominal GI/Abdominal exam: Present: normal bowel sounds, soft. Absent: distended, tenderness - Extremities Exam Extremities exam: Present: normal inspection. Absent: joint swelling, pedal edema, tenderness - Back Exam Back exam: Present: normal inspection. Absent: paraspinal tenderness, vertebral tenderness - Neurological Exam Neurological exam: Present: alert, oriented X3, no focal deficits - Psychiatric Psychiatric exam: Present: normal affect, normal mood - Skin Skin exam: Present: dry, intact, normal color, warm Additional comments: No endocarditis stigmata noted. Wound VAC noted to the right heel ulcer with sponge well-compressed and transparent dressing intact. No surrounding erythema, warmth, or edema noted. Maceration of the skin surrounding the wound noted. Consult Discharge Plan - Plan Referrals: Alejandro Le DO [Primary Care Provider] - - Attending Attestation I examined this patient and my medical decision-making was reviewed with the Resident Physician. I agree with the documented findings, disposition and treatment plan as described except to the extent set forth below. Patient is a 47 year old gentleman with past medical history mentioned below that is known to our service who was sent to the ED by for MRSA bacteremia. We are consulted for MRSA bacteremia. The patient had undergone a right great toe graft placement back in July. Post-she developed and right heel ulcer due to offloading the toe wound. The wound had sudden regression at the beginning of September and was transferred here for podiatry evaluation. Upon arrival, the patient had sepsis-like picture and ROGER. She was evaluated by podiatry and taken to the OR on October 10 and had an I & D with incision and drainage of the right heel ulcer with bone biopsy of the right calcaneus, I & D of an abscess on the right distal foot. Wound culture was positive for S. mitis. Pathology was suspicious for osteomyelitis. Blood cultures were negative. Her sepsis and ROGER resolved. She was discharged home to complete a 6 week course of IV Rocephin and PO flagyl, which she completed on 11/29/17 and was transitioned to PO Omnicef to complete an additional 14 days. Her inflammatory markers improved, but had not normalized , but her clinical picture was consistent with no acute infection and her wound was improving. She continued to follow with Dr. Snider in the wound clinic. On December 21, she had an Apligraf applied and the wound VAC was removed. She was re-evaluated in the wound clinic on December 27 and had application of Apligraf and wound VAC. She was seen again yesterday and noted to have general malaise, fatigue, and tachycardia. She had labs drawn that revealed MRSA bacteremia 2/2 sets and leukocytosis. She was called and told to come back to the ER. Upon arrival, the patient is afebrile, but she is tachycardic. Currently patient is in ED. Appears slightly ill, dehydrated and weak and tired. Patient denies any headache, blurred vision, chest pain or shortness of breath. No urinary symptoms. No lower extremity pain but pt has no sensation in the lower extremities. Physicial exam negative for murmur. Skin with no endocarditis stigmata. Foot with wound vac intact and no surrounding erythema or drainage. At this point, repeat blood cultures Start vancomycin with goal vancomycin trough of 15 Monitor labs and for drug toxicity Will need ELYSE prior to d/c
[2018-01-09 15:32] LABS: Bilirubin,Urine Negative (Negative); Blood,Urine Negative (Negative); Clarity,Urine Clear (Clear); Color,Urine Yellow (Yellow); Glucose,Urine (UA) Normal (Normal); Ketones,Urine Negative (Negative); Leukocyte Esterase,Urine Negative (Negative); Nitrite,Urine Negative (Negative); Protein,Urine Trace mg/dL (Neg-Trace); Specific Gravity,Urine 1.017 (1.010-1.025); Urobilinogen,Urine Normal (Normal)
[2018-01-09 15:36] LABS: Bacteria,Urine None Seen per hpf (None-Few); Hyaline Casts,Urine None Seen per lpf (None-Few); Squamous Epithelial Cell,Urine Many per lpf (None-Few); WBC,Urine 0-3 per hpf (0-3)
[2018-01-09 15:37] LABS: Basophils # 0.1 K/mcL (0.0-0.2); Basophils % 0.5 %; Eosinophils # 0.3 K/mcL (0.0-0.6); Eosinophils % 2.4 %; Hematocrit 31.6 % (35.3-44.9); Hemoglobin 10.7 g/dL (11.5-15.4); Immature Granulocytes % 0.4 % (0-4); Lymphocytes # 1.8 K/mcL (0.6-4.6); Lymphocytes % 13.9 %; Mean Corpuscular HGB Conc 33.9 g/dL (31.6-35.5); Mean Corpuscular Hemoglobin 30.5 pg (28.0-33.3); Monocytes # 0.5 K/mcL (0.0-1.3); Neutrophils # 10.3 K/mcL (1.6-8.9); Nucleated Red Blood Cells 0.2 /100 WBC (0); Platelet Count 654 K/mcL (140-400); Red Blood Count 3.51 M/mcL (3.82-4.97); Red Cell Distribution Width 13.6 % (11.5-14.5); Segmented Neutrophils % 78.8 %
--- NOTE | 2018-01-09 15:45 | Emergency Department Note ---
Disposition Clinical Impression: Osteomyelitis Qualifiers: Osteomyelitis type: other chronic Osteomyelitis location: foot Laterality: right Qualified Code(s): M86.671 - Other chronic osteomyelitis, right ankle and foot Disposition: Admitted As Inpatient Condition: Fair General Adult HPI - General Chief complaint: ED Recheck/Abnormal Lab/Rx Stated complaint: +bld culture x2 MRSA wound clinic 01/08 Time Seen by Provider: 01/09/18 14:50 Source: patient, family Limitations: no limitations - History of Present Illness HPI Narrative: Ms. Erin Larson, accompanied by , with significant past medical history of ongoing wound care for right heel ulcer, insulin-dependent DM2, presents to ED from wound clinic (seen by Dr. Snider), after +blood cultures x2 for MRSA. Per ID, she is s/p R great toe graft placement in Jul 2017, subsequently developed R heel ulcer positive for Strep mitis, she was on rocephin iv+flagyl for 6 weeks until end of October, Omnicef for 14 days after. She complains of nausea, decreased appetite, fatigue; no fever, brady, neck pain, abdominal/pelvic pain or known lesions aside from her Rt heel. Pain Scale: 2 - Related Data Home Medications Medication Instructions Recorded Confirmed Atorvastatin [Lipitor] 20 mg PO QPM 06/11/15 01/09/18 Cholecalciferol (Vitamin D3) 10,000 unit PO WE 06/11/15 01/09/18 [Vitamin D3] Ibuprofen [Motrin] 800 mg PO TID PRN 06/11/15 01/09/18 Insulin ASPART [NovoLOG] 0 - 12 unit SQ AD PRN 06/11/15 01/09/18 Insulin Glargine,Hum.rec.anlog 35 units SQ QPM 06/11/15 01/09/18 [Lantus Solostar] Quetiapine Fumarate [Seroquel] 100 mg PO HS 06/11/15 01/09/18 Aspirin [Lo-Dose Aspirin EC] 81 mg PO DAILY 10/10/17 01/09/18 Lisinopril-HCTZ 20-12.5 [Prinzide 1 tab PO DAILY 10/10/17 01/09/18 20-12.5] Omeprazole [PriLOSEC] 40 mg PO DAILY 10/10/17 01/09/18 Gabapentin [Neurontin] 800 mg PO TID 11/23/17 01/09/18 Buprenorphine HCl/Naloxone HCl 1 tab SL BID 01/09/18 01/09/18 [Buprenorphin-Naloxon 8-2 mg Sl] FLUoxetine HCl [PROzac] 20 mg PO DAILY 01/09/18 01/09/18 Liraglutide [Victoza 2-Yunier] 1.2 mg SQ DAILY 01/09/18 01/09/18 Omeprazole [PriLOSEC] 40 mg PO DAILY 01/09/18 01/09/18 Allergies Allergy/AdvReac Type Severity Reaction Status Date / Time Penicillins Allergy Swelling Verified 11/23/17 12:37 of Lip/Tongue/Throat All systems ED: reviewed and negative except as stated. Review of Systems: As Per HPI Past Medical History - Past Medical History Medical history: Reports: diabetes, GERD, hypertension, other (Right foot OM September 2017) Surgical history: Reports: hysterectomy, other (Right foot I & D) Psychiatric history: Reports: depression - Social History Smoking Status: Current every day smoker Smokeless Tobacco Status: No Alcohol use: Reports: none Drug use: Reports: none Physical Exam - General Limitations: no limitations General appearance: alert, in no apparent distress - Head Head exam: atraumatic - Eye Eye exam: Present: EOMI - ENT ENT exam: mucous membranes moist - Neck Neck exam: Present: full ROM - Chest Chest inspection: Present: symmetric chest wall rise - Respiratory Respiratory exam: Absent: respiratory distress - Cardiovascular Cardiovascular exam: Present: regular rate, normal rhythm - Abdominal Exam Abdominal exam: Present: soft, Non-Tender - Expanded Lower Extremity Exam Knee exam: Absent: tenderness, crepitus, erythema Foot/toe exam: Present: other (R foot in foot brace/boot; foot is wrapped/well dressed without purulent drainage) Course Course Narrative: Erin is presenting after +blood culture x2 for MRSA from wound clinic, currently following Dr. Celis, ID, and Dr. Snider, podiatry. She reports malaise , nausea, decreased appetite, denies brady, abdominal/pelvic pain. CT of the R LE shows worsening osteomyelitis compared to previous CT; she meets sepsis criteria with wt ct of 13.1, tachycardia and suspected source/wound. She has been put on vanc, pharmacy dosed, and cipro (has penicillin allergy). ID has seen patient in the ED. Lactic acid is .6; negative troponin, creatinine WNL. Discussed patient with admitter with plan for admission. Vital Signs Temperature 97.9 F 01/09/18 12:42 Pulse Rate 123 01/09/18 12:42 Respiratory Rate 18 01/09/18 12:42 Blood Pressure 151/82 01/09/18 12:42 O2 Sat by Pulse Oximetry 96 01/09/18 12:42 Temperature 97.9 F 01/09/18 12:42 Pulse Rate 99 01/09/18 17:51 Respiratory Rate 16 01/09/18 17:51 Blood Pressure 147/102 01/09/18 17:51 O2 Sat by Pulse Oximetry 94 01/09/18 17:51 Oxygen Delivery Oxygen Delivery Room Air Medical Decision Making - Lab Data Lab results reviewed: Yes I reviewed the patient's lab results. Result diagrams: 01/09/18 15:24 01/09/18 15:24 Lab Results 01/09/18 01/09/18 01/09/18 Range/Units 15:17 15:24 15:24 WBC 13.1 H (4.3-11.1) K/mcL RBC 3.51 L (3.82-4.97) M/mcL Hgb 10.7 L (11.5-15.4) g/dL Hct 31.6 L (35.3-44.9) % MCV 90.0 (83.0-100.0) fL MCH 30.5 (28.0-33.3) pg MCHC 33.9 (31.6-35.5) g/dL RDW 13.6 (11.5-14.5) % Plt Count 654 H (140-400) K/mcL MPV 9.0 L (9.4-12.4) fL Immature Gran % 0.4 (0-4) % Seg Neutrophils % 78.8 % Lymphocytes % 13.9 % Monocytes % 4.0 % Eosinophils % 2.4 % Basophils % 0.5 % Neutrophils # 10.3 H (1.6-8.9) K/mcL Lymphocytes # 1.8 (0.6-4.6) K/mcL Monocytes # 0.5 (0.0-1.3) K/mcL Eosinophils # 0.3 (0.0-0.6) K/mcL Basophils # 0.1 (0.0-0.2) K/mcL Nucleated RBCs/100 WBC 0.2 H (0) /100 WBC Sodium Cancelled Potassium Cancelled Chloride Cancelled Carbon Dioxide Cancelled BUN Cancelled Creatinine Cancelled Est GFR ( Amer) Cancelled Est GFR (Non-Af Amer) Cancelled BUN/Creatinine Ratio Cancelled Glucose Cancelled Calculated Osmolality Cancelled Lactic Acid (0.5-2.2) mmol/L Calcium Cancelled Total Bilirubin Cancelled AST Cancelled ALT Cancelled Alkaline Phosphatase Cancelled Troponin I < 0.03 (< 0.04) ng/mL Serum Total Protein Cancelled Albumin Cancelled Globulin Cancelled Albumin/Globulin Ratio Cancelled Urine Color Yellow (Yellow) Urine Clarity Clear (Clear) Urine pH 6.0 (5.0-8.0) pH Units Ur Specific [place] 1.017 (1.010-1.025) Urine Protein Trace (Neg-Trace) mg/dL Urine Glucose (UA) Normal (Normal) mg/dL Urine Ketones Negative (Negative) mg/dL Urine Blood Negative (Negative) Urine Nitrite Negative (Negative) Urine Bilirubin Negative (Negative) Urine Urobilinogen Normal (Normal) mg/dL Ur Leukocyte Esterase Negative (Negative) Urine Microscopic RBC 3-5 H (0-3) per hpf Urine Microscopic WBC 0-3 (0-3) per hpf Ur Squamous Epith Cells Many H (None-Few) per lpf Urine Bacteria None Seen (None-Few) per hpf Hyaline Casts None Seen (None-Few) per lpf Ur Culture Indicated? NO (NO) Specimen Rejected 01/09/18 01/09/18 Range/Units 15:24 15:24 WBC (4.3-11.1) K/mcL RBC (3.82-4.97) M/mcL Hgb (11.5-15.4) g/dL Hct (35.3-44.9) % MCV (83.0-100.0) fL MCH (28.0-33.3) pg MCHC (31.6-35.5) g/dL RDW (11.5-14.5) % Plt Count (140-400) K/mcL MPV (9.4-12.4) fL Immature Gran % (0-4) % Seg Neutrophils % % Lymphocytes % % Monocytes % % Eosinophils % % Basophils % % Neutrophils # (1.6-8.9) K/mcL Lymphocytes # (0.6-4.6) K/mcL Monocytes # (0.0-1.3) K/mcL Eosinophils # (0.0-0.6) K/mcL Basophils # (0.0-0.2) K/mcL Nucleated RBCs/100 WBC (0) /100 WBC Sodium Potassium Chloride Carbon Dioxide BUN Creatinine Est GFR ( Amer) Est GFR (Non-Af Amer) BUN/Creatinine Ratio Glucose Calculated Osmolality Lactic Acid 0.6 (0.5-2.2) mmol/L Calcium Total Bilirubin AST ALT Alkaline Phosphatase Troponin I (< 0.04) ng/mL Serum Total Protein Albumin Globulin Albumin/Globulin Ratio Urine Color (Yellow) Urine Clarity (Clear) Urine pH (5.0-8.0) pH Units Ur Specific [place] (1.010-1.025) Urine Protein (Neg-Trace) mg/dL Urine Glucose (UA) (Normal) mg/dL Urine Ketones (Negative) mg/dL Urine Blood (Negative) Urine Nitrite (Negative) Urine Bilirubin (Negative) Urine Urobilinogen (Normal) mg/dL Ur Leukocyte Esterase (Negative) Urine Microscopic RBC (0-3) per hpf Urine Microscopic WBC (0-3) per hpf Ur Squamous Epith Cells (None-Few) per lpf Urine Bacteria (None-Few) per hpf Hyaline Casts (None-Few) per lpf Ur Culture Indicated? (NO) Specimen Rejected Hemolyzed Attestation Statement - Attestation Attestation: I, Robin Law DO, examined this patient [id number] and my medical decision-making was reviewed with Jaiden Honeycutt PGY-1, Resident Physician. I agree with the documented findings, disposition and treatment plan as described except to the extent set forth below. Please see my progress notes for details. 47-year-old female presents to the emergency room at the request of infectious disease physician as well as her tariff compiling clerk. Patient is a known diabetic foot ulcer on the right lower extremity. She is positive for acute blood cultures with MRSA. Patient was recommended to come back to the ER for evaluation. Patient denies any specific symptoms but she has had generalized malaise and weakness. Was evaluated yesterday by the tariff compiling clerk. Patient's vital signs are stable. Repeat labs including CBC chemistry as well as blood cultures were ordered here. IV vancomycin was started initially on presentation along with CT imaging of the right lower extremity. Once the workup is completed it was determined that the patient has what appears to be progressive acute on chronic osteomyelitis of the right lower extremity. There is no visible signs of cervical presentation. Ciprofloxacin was added on at that point. Patient's vital signs are unremarkable throughout the treatment course. Patient is otherwise clinically stable. Physical exam is unremarkable. 1700 Patient found to have progressive osteomyelitis. Admission process is completed. No other concerns or issues. Patient is clinically stable. No critical care provider patient's treatment course.
[2018-01-09 18:54] LABS: Alanine Aminotransferase 15 Units/L (7-52); Albumin 3.1 g/dL (3.5-5.7); Albumin/Globulin Ratio 0.7 (1.1-2.2); Alkaline Phosphatase 73 Units/L (34-104); Aspartate Amino Transferase 17 Units/L (13-39); BUN/Creatinine Ratio 22 (6-26); Bilirubin,Total 0.2 mg/dL (0.3-1.0); Blood Urea Nitrogen 24 mg/dL (6-20); Calcium 9.6 mg/dL (8.6-10.3); Carbon Dioxide 30 mEq/L (23-29); Chloride 98 mEq/L (98-107); Globulin 4.2 g/dL (2.4-3.5); Glucose 116 mg/dL (70-105); Osmolality,Calculated 283 (280-300); Potassium 3.9 mEq/L (3.5-5.1); Sodium 134 mEq/L (136-145); Total Protein 7.3 g/dL (6.4-8.9); eGFR For African Americans > 60 (> 60); eGFR For Non-African Americans 54 (> 60)
[2018-01-09] MEDS ORDERED: Dextrose Gel 15 GM/37.5 ML TUBE PO PRN ×2 (21:14)
[2018-01-09] MEDS ORDERED: *HR* Dextrose 50 % in Water (Syg) 50 ML SYRINGE IVP PRN (21:14)
[2018-01-09] MEDS ORDERED: D5% in Water 1,000 ML IVC PRN (21:14)
[2018-01-09] MEDS ORDERED: Insulin DETEMIR 100 UNIT/ML X5UNITS SQ SCH (21:15)
[2018-01-09] MEDS ORDERED: Naloxone 0.4 MG/ML INJ IVP PRN (21:16)
[2018-01-09] MEDS ORDERED: 0.9 % Sodium Chloride 1,000 ML IVC SCH ×2 (21:30→22:45)
[2018-01-09] MEDS ORDERED: Ibuprofen 800 MG TABLET PO PRN (21:56)
--- NOTE | 2018-01-09 22:01 | Internal Med History&Physical ---
Date of Encounter: 01/09/18 Time of Encounter: 20:00 Assessment and Plan (1) Bacteremia Current visit: Yes Status: Acute Blood culture positive for MRSA. ID was counseled. Patient was placed on vancomycin and Cipro. Repeat blood culture. - We will follow-up ID recommendation for further management (2) Diabetic foot ulcer Current visit: No Status: Acute On wound vac. Continue antibiotic treatment. Continue wound care. Qualifiers: Diabetic foot ulcer location: heel Diabetes mellitus type: type 2 Laterality: right Non-pressure ulcer stage: with fat layer exposed Qualified Code(s): E11.621 - Type 2 diabetes mellitus with foot ulcer; L97.412 - Non-pressure chronic ulcer of right heel and midfoot with fat layer exposed; L97.412 - Non-pressure chronic ulcer of right heel and midfoot with fat layer exposed; L97.412 - Non-pressure chronic ulcer of right heel and midfoot with fat layer exposed; L97.412 - Non-pressure chronic ulcer of right heel and midfoot with fat layer exposed (3) Sepsis Current visit: No Status: Acute Patient has leukocytosis and tachycardia. Consider sepsis. - Continue IV fluid and IV antibiotics. - Lactate acid is not high in ER. Qualifiers: Sepsis type: sepsis due to unspecified organism Qualified Code(s): A41.9 - Sepsis, unspecified organism (4) Diabetes mellitus Current visit: No Status: Chronic Continue basal and sliding scale insulin coverage Qualifiers: Diabetes mellitus type: type 2 Diabetes mellitus custodial insulin use: with custodial use Diabetes mellitus complication status: with skin complications Diabetes mellitus complication detail: with foot ulcer Qualified Code(s): E11.621 - Type 2 diabetes mellitus with foot ulcer; L97.509 - Non-pressure chronic ulcer of other part of unspecified foot with unspecified severity; L97.509 - Non-pressure chronic ulcer of other part of unspecified foot with unspecified severity; L97.509 - Non-pressure chronic ulcer of other part of unspecified foot with unspecified severity; L97.509 - Non-pressure chronic ulcer of other part of unspecified foot with unspecified severity; Z79.4 - lobsterman (current) use of insulin; Z79.4 - senior care (current) use of insulin; Z79.4 - lobsterman (current) use of insulin; Z79.4 - lobsterman (current ) use of insulin (5) HTN (hypertension) Current visit: No Status: Chronic Continue home medications Qualifiers: Hypertension type: essential hypertension Qualified Code(s): I10 - Essential (primary) hypertension (6) Peripheral neuropathy Current visit: No Status: Chronic Continue diabetic control Qualifiers: Peripheral neuropathy type: polyneuropathy, unspecified Qualified Code(s): G62.9 - Polyneuropathy, unspecified (7) Tobacco abuse Current visit: No Status: Chronic Smoking cessation education. Place patient on nicotine patch (8) DVT prophylaxis Current visit: No Status: Resolved Heparin subcutaneously Internal Medicine - H&P: HPI Chief complaint: Weakness and sick Admitted From: Home Plans for Post Hospital Care: Home History of present illness: Ms. Larson is a 47 year old female with history of diabetes, diabetic foot ulcer, hypertension, presented to ER for generalized weakness for 3-4 days. Patient had diabetic foot ulcer since last September and had finished 6 weeks IV vancomycin treatment, which was finished in November. Patient feels weak and sick. Patient did blood culture with PCP, which shows positive for MRSA. Patient was called and advised that to come to ER. Patient denies fever. Patient has a mild nausea but no vomiting. Patient denies cough, abdominal pain , or urination symptoms. Patient was admitted for bacteremia and foot ulcer. Past Med Surg Social Fam HX - Past Medical History Medical history: diabetes, GERD, hypertension, other Psychiatric history: depression - Past Surgical History Surgical History: hysterectomy, other - Social History Smoking Status: Current every day smoker Packs per day: 1 Smokeless Tobacco Status: No Alcohol use: none Drug use: none - Family History Sister Hx Family Endocrine Disorder: Yes (Diabetes) Grandfather Hx Family Cardiac Disorders: Yes (Coronary artery disease at age 50) Father Family Member Ethnicity: Non- Living Status: Still Living Hx Family Cardiac Disorders: Yes Hx Family Respiratory Disorders: No Hx Family Cancer: Yes Hx Family GI Disorders: No Hx Family Endocrine Disorder: Yes Hx Family Neuromuscular Disorders: No Hx Family Neurologic Disorders: No Hx Family HEENT Disorders: No Hx Family Autoimmune Disorders: No Internal Medicine - H&P: Meds Atorvastatin [Lipitor] 20 mg PO QPM 06/11/15 [History] Cholecalciferol (Vitamin D3) [Vitamin D3] 10,000 unit PO WE 06/11/15 [History] Ibuprofen [Motrin] 800 mg PO TID PRN 06/11/15 [History] Insulin ASPART [NovoLOG] 0 - 12 unit SQ AD PRN 06/11/15 [History] Insulin Glargine,Hum.rec.anlog [Lantus Solostar] 35 units SQ QPM 06/11/15 [ History] Quetiapine Fumarate [Seroquel] 100 mg PO HS 06/11/15 [History] Aspirin [Lo-Dose Aspirin EC] 81 mg PO DAILY 10/10/17 [History] Lisinopril-HCTZ 20-12.5 [Prinzide 20-12.5] 1 tab PO DAILY 10/10/17 [History] Omeprazole [PriLOSEC] 40 mg PO DAILY 10/10/17 [History] Gabapentin [Neurontin] 800 mg PO TID 11/23/17 [History] Buprenorphine HCl/Naloxone HCl [Buprenorphin-Naloxon 8-2 mg Sl] 1 tab SL BID [History] FLUoxetine HCl [PROzac] 20 mg PO DAILY 01/09/18 [History] Liraglutide [Victoza 2-Yunier] 1.2 mg SQ DAILY 01/09/18 [History] Omeprazole [PriLOSEC] 40 mg PO DAILY 01/09/18 [History] 3 Allergy/AdvReac Type Severity Reaction Status Date / Time Penicillins Allergy Swelling Verified 11/23/17 12:37 of Lip/Tongue/Throat All Systems PM: A 10-system review of systems was performed and is negative for pertinent findings except as documented above in the HPI. - Constitutional Vitals: Temp Pulse Resp BP Pulse Ox 98.2 F 101 16 132/82 98 01/09/18 18:35 01/09/18 18:35 01/09/18 18:35 01/09/18 18:35 01/09/18 18:35 General appearance: Present: A&O X 3, no acute distress, answers questions appropriately - Head Head exam: Present: atraumatic, normocephalic - Eye Eye exam: Present: PERRL, conjuntiva pink, sclera anicteric Pupils: Present: PERRL - Neck Neck exam general surgery: Present: supple, trachea midline. Absent: lymphadenopathy - Respiratory Respiratory exam: Present: CTAB. Absent: accessory muscle use, rales, rhonchi, wheezes - Cardiovascular Cardiovascular exam: Present: RRR, +S1, +S2. Absent: diastolic murmur, gallop, rubs, systolic murmur - GI/Abdominal GI/Abdominal exam: Present: normal bowel sounds, soft, no peritoneal signs. Absent: distended, tenderness - Extremities Exam Extremities exam: Present: warm, radial pulses palpable and symmetrical. Absent : calf tenderness, cyanotic, pedal edema Additional comments: Left toe s/p amputation. Right heel ulcer on wound vac. - Neurological Exam Neurological exam: Present: CN II-XII intact, oriented X3, no focal deficits. Absent: pronater drift, facial droop, speech deficit - Skin Skin exam: Present: dry, intact Internal Med - H&P Results - Labs CBC & Chem 7: 01/09/18 15:24 01/09/18 18:23 Labs: BMP 01/09/18 18:23 Sodium 134 L Potassium 3.9 Chloride 98 Carbon Dioxide 30 H BUN 24 H Creatinine 1.09 Glucose 116 H Calcium 9.6 Liver Function 01/09/18 Range/Units 18:23 Total Bilirubin 0.2 L (0.3-1.0) mg/dL AST 17 (13-39) Units/L ALT 15 (7-52) Units/L Alkaline Phosphatase 73 (34-104) Units/L Albumin 3.1 L (3.5-5.7) g/dL
[2018-01-09] MEDS: Gabapentin 400 MG CAPSULE PO SCH (22:31)
[2018-01-09] MEDS: Insulin LISPRO 300 UNITS/3 ML VIAL SQ SCH (22:33)
[2018-01-09] MEDS: Nicotine 21 MG PATCH.TD24 TD SCH (22:33)
[2018-01-10] MEDS: *HR* Heparin 5,000 UNIT/ML VIAL SQ SCH ×2 (05:32→17:47)
[2018-01-10 05:59] LABS: Basophils # 0.1 K/mcL (0.0-0.2); Basophils % 0.7 %; Eosinophils # 0.3 K/mcL (0.0-0.6); Eosinophils % 3.3 %; Hematocrit 27.5 % (35.3-44.9); Immature Granulocytes % 0.1 % (0-4); Lymphocytes # 2.1 K/mcL (0.6-4.6); Lymphocytes % 23.8 %; Mean Corpuscular HGB Conc 32.7 g/dL (31.6-35.5); Mean Corpuscular Hemoglobin 29.8 pg (28.0-33.3); Mean Corpuscular Volume 91.1 fL (83.0-100.0); Monocytes # 0.7 K/mcL (0.0-1.3); Neutrophils # 5.7 K/mcL (1.6-8.9); Platelet Count 555 K/mcL (140-400); Red Blood Count 3.02 M/mcL (3.82-4.97); Red Cell Distribution Width 13.5 % (11.5-14.5); Segmented Neutrophils % 64.1 %
[2018-01-10 06:27] LABS: BUN/Creatinine Ratio 21 (6-26); Blood Urea Nitrogen 24 mg/dL (6-20); Calcium 9.3 mg/dL (8.6-10.3); Carbon Dioxide 29 mEq/L (23-29); Chloride 102 mEq/L (98-107); Glucose 44 mg/dL (70-105); Magnesium 1.8 mg/dL (1.6-2.6); Osmolality,Calculated 287 (280-300); Potassium 3.9 mEq/L (3.5-5.1); Sodium 138 mEq/L (136-145); eGFR For African Americans > 60 (> 60); eGFR For Non-African Americans 52 (> 60)
[2018-01-10] MEDS: Insulin LISPRO 300 UNITS/3 ML VIAL SQ SCH ×4 (07:27→20:14)
[2018-01-10] MEDS: Gabapentin 400 MG CAPSULE PO SCH ×3 (09:47→20:14)
[2018-01-10] MEDS: Lisinopril-HCTZ 20-12.5mg TABLET PO SCH (09:48)
[2018-01-10] MEDS: Aspirin Enteric Coated 81 MG Tablet PO SCH (09:48)
[2018-01-10] MEDS: Nicotine 21 MG PATCH.TD24 TD SCH (09:48)
[2018-01-10] MEDS: Cholecalciferol (D-3) 1,000 UNIT TABLET PO SCH (09:48)
[2018-01-10] MEDS: FLUoxetine 20 MG CAPSULE PO SCH (09:48)
[2018-01-10] MEDS: Buprenorphine Hcl/Naloxone Hcl [Buprenorphin-Naloxon SL SCH ×2 (12:05→20:14)
--- NOTE | 2018-01-10 12:54 | Podiatry Consult Note ---
Date of Encounter: 01/10/18 Time of Encounter: 11:00 Assessment and Plan (1) Osteomyelitis Current visit: Yes Status: Acute Patient presented for sepsis- Exact source unclear however right heel ulceration is possible cause Per CT scan there is slight worsening of bony destruction noted to heel WBC 13.1 on admission now 8.8. Patient was started on vancomycin per ID for 2/2 positive blood cultures for GPC and MRSA. Wound cultures were obtained per RN today with wound vac change Per outside salesman bed appears healthy with healthy granulation tissue however there is minimal coverage to bone and palpable bony structures. No drainage or odor noted. No drainage noted to wound vac canister at this time There is no erythema or edema noted to foot, however due to fact there are no other obvious sources for MRSA infection will plan for formal debridement of heel tomorrow in OR with and graft jacket placement for healing Will order xrays to determine extent of bony destruction ID ordered ESR, CRP and lactic acid Await wound cultures, continue current antibiotic therapy and medical management Qualifiers: Osteomyelitis type: other chronic Osteomyelitis location: foot Laterality : right Qualified Code(s): M86.671 - Other chronic osteomyelitis, right ankle and foot (2) Diabetes mellitus Current visit: No Status: Chronic Qualifiers: Diabetes mellitus type: type 2 Diabetes mellitus alf insulin use: with alf use Diabetes mellitus complication status: with skin complications Diabetes mellitus complication detail: with foot ulcer Qualified Code(s): E11.621 - Type 2 diabetes mellitus with foot ulcer; L97.509 - Non-pressure chronic ulcer of other part of unspecified foot with unspecified severity; L97.509 - Non-pressure chronic ulcer of other part of unspecified foot with unspecified severity; L97.509 - Non-pressure chronic ulcer of other part of unspecified foot with unspecified severity; L97.509 - Non-pressure chronic ulcer of other part of unspecified foot with unspecified severity; 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 Larson is a 47 year old female with history of diabetes, diabetic foot ulcer, hypertension, presented to ER for generalized weakness for 3-4 days. Patient had ongoing diabetic foot ulcer since September. She is followed by in wound care center. She finished 6 weeks IV vancomycin treatment, which was finished in November. She is followed per [facility] outpatient. Patient presented to ED with complaints of feeling weak and sick. Patient did blood culture with PCP and office was contacted on 01/09 regarding cultures and patient was recommended admission, cultures shows positive for MRSA. Patient denies fever. States she does feel better today. Patient continues to have mild nausea but no vomiting. Past Med Surg Social Fam HX - Past Medical History Medical history: diabetes, GERD, hypertension, other Psychiatric history: depression - Past Surgical History Surgical History: hysterectomy, other - Social History Smoking Status: Current every day smoker Packs per day: 1 Smokeless Tobacco Status: No Alcohol use: none Drug use: none - Family History Sister Hx Family Endocrine Disorder: Yes (Diabetes) Grandfather Hx Family Cardiac Disorders: Yes (Coronary artery disease at age 50) Father Family Member Ethnicity: Non- Living Status: Still Living Hx Family Cardiac Disorders: Yes Hx Family Respiratory Disorders: No Hx Family Cancer: Yes Hx Family GI Disorders: No Hx Family Endocrine Disorder: Yes Hx Family Neuromuscular Disorders: No Hx Family Neurologic Disorders: No Hx Family HEENT Disorders: No Hx Family Autoimmune Disorders: No Medications and Allergies Atorvastatin [Lipitor] 20 mg PO QPM 06/11/15 [History] Cholecalciferol (Vitamin D3) [Vitamin D3] 10,000 unit PO WE 06/11/15 [History] Ibuprofen [Motrin] 800 mg PO TID PRN 06/11/15 [History] Insulin ASPART [NovoLOG] 0 - 12 unit SQ AD PRN 06/11/15 [History] Insulin Glargine,Hum.rec.anlog [Lantus Solostar] 35 units SQ QPM 06/11/15 [ History] Quetiapine Fumarate [Seroquel] 100 mg PO HS 06/11/15 [History] Aspirin [Lo-Dose Aspirin EC] 81 mg PO DAILY 10/10/17 [History] Lisinopril-HCTZ 20-12.5 [Prinzide 20-12.5] 1 tab PO DAILY 10/10/17 [History] Omeprazole [PriLOSEC] 40 mg PO DAILY 10/10/17 [History] Gabapentin [Neurontin] 800 mg PO TID 11/23/17 [History] Buprenorphine HCl/Naloxone HCl [Buprenorphin-Naloxon 8-2 mg Sl] 1 tab SL BID [History] FLUoxetine HCl [PROzac] 20 mg PO DAILY 01/09/18 [History] Liraglutide [Victoza 2-Yunier] 1.2 mg SQ DAILY 01/09/18 [History] Omeprazole [PriLOSEC] 40 mg PO DAILY 01/09/18 [History] 3 Allergy/AdvReac Type Severity Reaction Status Date / Time Penicillins Allergy Swelling Verified 11/23/17 12:37 of Lip/Tongue/Throat All Systems Reviewed: The remainder of the systems were reviewed and are negative Physical Exam - Constitutional Vitals: Temp Pulse Resp BP Pulse Ox 98.1 F 103 15 124/91 94 01/10/18 11:21 01/10/18 11:21 01/10/18 11:21 01/10/18 11:21 01/10/18 11:21 General appearance: average body habitus, cooperative, no acute distress Exam: General Examination: CONSTITUTIONAL: Alert, oriented, in no acute distress, non-toxic. EXTREMITIES: CFT 3 seconds all toes. Edema +1 and pedal pulses palpable. SKIN: Skin with decreased turgor, decreased subcutaneous tissue, skin thin and shiny with trophic changes associated with comorbidities as described in history.. NEUROLOGIC: Minimal sensation to light/moderate touch Right heel- Wound vac intact and running without issue- there is no current drainage noted Nurse reports vac was changed within the hour Reports no visible bone however relates that bone was palpable within wound bed. States wound bed had healthy granulation tissue and was without odor or purulent drainage. No surrounding erythema or edema to foot. No warmth. There is scant maceration surrounding wound margins visible surrounding wound vac sponge. Results - Labs Result Diagrams: 01/10/18 04:57 01/10/18 04:57 Labs: Abnormal lab results RBC 3.02 M/mcL (3.82-4.97) L 01/10/18 04:57 Hgb 9.0 g/dL (11.5-15.4) L D 01/10/18 04:57 Hct 27.5 % (35.3-44.9) L 01/10/18 04:57 Plt Count 555 K/mcL (140-400) H 01/10/18 04:57 MPV 9.0 fL (9.4-12.4) L 01/10/18 04:57 Nucleated RBCs/100 WBC 0.2 /100 WBC (0) H 01/09/18 15:24 BUN 24 mg/dL (6-20) H 01/10/18 04:57 Est GFR (Non-Af Amer) 52 (> 60) L 01/10/18 04:57 Glucose 44 mg/dL (70-105) L 01/10/18 04:57 POC Glucose 92 (58-89) H 01/10/18 11:18 Total Bilirubin 0.2 mg/dL (0.3-1.0) L 01/09/18 18:23 Albumin 3.1 g/dL (3.5-5.7) L 01/09/18 18:23 Globulin 4.2 g/dL (2.4-3.5) H 01/09/18 18:23 Albumin/Globulin Ratio 0.7 (1.1-2.2) L 01/09/18 18:23 Urine Microscopic RBC 3-5 per hpf (0-3) H 01/09/18 15:17 Ur Squamous Epith Cells Many per lpf (None-Few) H 01/09/18 15:17 H & H 01/10/18 Range/Units 04:57 Hgb 9.0 L D (11.5-15.4) g/dL Hct 27.5 L (35.3-44.9) % All other labs normal. Consult Discharge Plan - Plan Referrals: Alejandro Le DO [Primary Care Provider] -
--- NOTE | 2018-01-10 13:57 | Infectious Disease Progress No ---
Date of Encounter: 01/10/18 Time of Encounter: 13:53 - Assessment and Plan (1) Sepsis Current Visit: No Status: Acute The patient has two SIRS criteria. Likely secondary to bacteremia. Improved. Afebrile. Leukocytosis trending down. Tachycardia persists. Blood culture sdrawn 01/08/18 are positive 2/2 sets for GPC, MRSA per PCR. Repeat blood cultures drawn 01/09/18 are pending. Qualifiers: Sepsis type: sepsis due to unspecified organism Qualified Code(s): A41.9 - Sepsis, unspecified organism (2) Bacteremia Current Visit: Yes Status: Acute Causative organism: MRSA per PCR. Source: Unclear. The patient has a non-healing surgical/diabetic foot ulcer to the right foot, but per Dr. Snider, this does not appear infected. Uncomplicated - the patient does not have any indwelling hardware or evidence of septic emboli. Blood cultures drawn 01/08/18 are positive 2/2 sets. Repeat blood cultures drawn 01/09/18 are pending x 2 sets. She has no endocarditis stigmata noted on exam. She has one major Modified Sosa's Criteria. The patient will need a TTE prior to discharge. If negative, may need to consider a ELYSE depending on the clinical picture. Continue Vancomycin IV. Pharmacy to dose. Goal trough ~15. Monitor renal function and for drug toxicity and dose-adjust antibiotics. Duration of treatment depends on the clinical picture. (3) Osteomyelitis Current Visit: Yes Status: Acute Location: Right calcaneus. Causative organism unclear, but likely MRSA given the blood culture results. CT of the right LE shows chronic OM of the calcaneus which has progressed when compared with previous exam. Also noted is a large ulceration that extends to the level of the underlying bone of the calcaneus and interval development of cortical destruction of the adjacent cuboid at the calcaneocuboid articulation compatible with osteomyelitis of the cuboid. Podiatry consulted and following. Planning to take the patient to the OR tomorrow. Will request intra-op cultures. Check ESR and CRP. Add to AM labs. Wound culture obtained per nursing and is pending. Continue Vancomycin IV. Pharmacy to dose. Goal trough ~15. Continue cipro 400mg IV Q12H. Duration of treatment depends on the clinical picture. Monitor renal function and for drug toxicity and dose-adjust antibiotics. Qualifiers: Osteomyelitis type: other chronic Osteomyelitis location: foot Laterality : right Qualified Code(s): M86.671 - Other chronic osteomyelitis, right ankle and foot (4) Nonhealing surgical wound Current Visit: No Status: Acute Location: Right heel. Secondary to right foot I & D for OM of the right calcaneus in September 2017. Per wound care notes, has had improvement in the size of the wound and clinically does not appear infected, but CT scan shows progression of bony erosion. Podiatry consulted and following. Planning to take the patient to the OR tomorrow. Wound care and activity restrictions per the podiatry team. Qualifiers: Encounter type: subsequent encounter Qualified Code(s): T81.89XD - Other complications of procedures, not elsewhere classified, subsequent encounter (5) Diabetic foot ulcer Current Visit: No Status: Acute Location: Right heel. See recommendations above. Qualifiers: Diabetic foot ulcer location: heel Diabetes mellitus type: type 2 Laterality: right Non-pressure ulcer stage: with fat layer exposed Qualified Code(s): E11.621 - Type 2 diabetes mellitus with foot ulcer; L97.412 - Non-pressure chronic ulcer of right heel and midfoot with fat layer exposed; L97.412 - Non-pressure chronic ulcer of right heel and midfoot with fat layer exposed; L97.412 - Non-pressure chronic ulcer of right heel and midfoot with fat layer exposed; L97.412 - Non-pressure chronic ulcer of right heel and midfoot with fat layer exposed (6) Diabetes mellitus Current Visit: No Status: Chronic Controlled. The patient's HgbA1C has gone from 12% to 7.9% in one month. Recommend aggressive glucose monitoring and control to promote wound healing and prevent re-infection. Qualifiers: Diabetes mellitus type: type 2 Diabetes mellitus medical terminologist insulin use: with medical terminologist use Diabetes mellitus complication status: with skin complications Diabetes mellitus complication detail: with foot ulcer Qualified Code(s): E11.621 - Type 2 diabetes mellitus with foot ulcer; L97.509 - Non-pressure chronic ulcer of other part of unspecified foot with unspecified severity; L97.509 - Non-pressure chronic ulcer of other part of unspecified foot with unspecified severity; L97.509 - Non-pressure chronic ulcer of other part of unspecified foot with unspecified severity; L97.509 - Non-pressure chronic ulcer of other part of unspecified foot with unspecified severity; 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 - Subjective Interval history: Patient seen and examined. No acute events noted overnight. Patient states she feels a little better this morning. Denies fevers, chills, or rigors. Denies nausea, vomiting, or diarrhea. Denies abdominal pain, urinary complaints, or appetite changes. Denies chest pain, shortness of breath, or cough. States her appetite is a little better today. Denies oral thrush or new skin lesions. She does have a scabbed lesion to the left elbow that does not appear infected. Seen with [facility] at the bedside. Infect Dis PN-Objective Data - Labs CBC & Chem 7: 01/10/18 04:57 01/10/18 04:57 Labs: Laboratory Results - last 24 hr 01/10/18 01/10/18 01/10/18 04:57 04:57 07:09 WBC 8.8 RBC 3.02 L Hgb 9.0 L D Hct 27.5 L MCV 91.1 MCH 29.8 MCHC 32.7 RDW 13.5 Plt Count 555 H MPV 9.0 L Immature Gran % 0.1 Seg Neutrophils % 64.1 Lymphocytes % 23.8 Monocytes % 8.0 Eosinophils % 3.3 Basophils % 0.7 Neutrophils # 5.7 Lymphocytes # 2.1 Monocytes # 0.7 Eosinophils # 0.3 Basophils # 0.1 Sodium 138 Potassium 3.9 Chloride 102 Carbon Dioxide 29 BUN 24 H Creatinine 1.13 Est GFR ( Amer) > 60 Est GFR (Non-Af Amer) 52 L BUN/Creatinine Ratio 21 Glucose 44 L POC Glucose 66 Calculated Osmolality 287 Calcium 9.3 Magnesium 1.8 01/10/18 01/10/18 07:56 11:18 WBC RBC Hgb Hct MCV MCH MCHC RDW Plt Count MPV Immature Gran % Seg Neutrophils % Lymphocytes % Monocytes % Eosinophils % Basophils % Neutrophils # Lymphocytes # Monocytes # Eosinophils # Basophils # Sodium Potassium Chloride Carbon Dioxide BUN Creatinine Est GFR ( Amer) Est GFR (Non-Af Amer) BUN/Creatinine Ratio Glucose POC Glucose 73 92 H Calculated Osmolality Calcium Magnesium - Impressions Impressions Foot X-Ray 01/10/18 12:41 IMPRESSION: Findings are again consistent with osteomyelitis in the calcaneus. Erosive changes in the cuboid are better evaluated on CT. D/ / Feliciano Max MD / Feliciano Max MD Interpreting Provider: Feliciano Max MD Exam - Constitutional Vitals: Temp Pulse Resp BP Pulse Ox 98.1 F 103 15 124/91 94 01/10/18 11:21 01/10/18 11:21 01/10/18 11:21 01/10/18 11:21 01/10/18 11:21 General appearance: average body habitus, cooperative, no acute distress - Head Head exam: Present: atraumatic, normal inspection, normocephalic - Eye Eye exam: Present: EOMI, normal appearance, PERRL Pupils: Present: normal accommodation - ENT ENT exam: Present: mucous membranes moist - Neck Neck exam: Present: normal inspection - Respiratory Respiratory exam: Present: CTAB. Absent: rales, respiratory distress, rhonchi, wheezes - Cardiovascular Cardiovascular exam: Present: +S1, +S2, tachycardia. Absent: irregular rhythm - GI/Abdominal GI/Abdominal exam: Present: normal bowel sounds, soft. Absent: distended, tenderness - Extremities Exam Extremities exam: Absent: joint swelling, pedal edema, tenderness Additional comments: Right foot wound VAC dressing intact with sponge well-compressed and dressing intact. No surrounding erythema, warmth, or fluctuance noted. - Neurological Exam Neurological exam: Present: alert, oriented X3, no focal deficits - Psychiatric Psychiatric exam: Present: normal affect, normal mood - Skin Skin exam: Present: dry, intact, normal color, warm Consult Discharge Plan - Plan Referrals: Alejandro Le DO [Primary Care Provider] - - Attending Attestation I examined this patient and my medical decision-making was reviewed with the Resident Physician. I agree with the documented findings, disposition and treatment plan as described except to the extent set forth below.
--- NOTE | 2018-01-10 18:40 | Internal Med Progress Note ---
Date of Encounter: 01/10/18 Time of Encounter: 11:00 - Assessment and plan (1) Osteomyelitis Current Visit: Yes Status: Acute Assessment and plan: -CT of right lower extremity shows chronic osteomyelitis of the calcaneus which has progressed compared to prior exam. -Infectious disease consulted with recommendations for wound culture in addition to continuing IV vancomycin and IV Cipro -Podiatry also following with recommendations to continue medical management at this point Qualifiers: Osteomyelitis type: other chronic Osteomyelitis location: foot Laterality : right Qualified Code(s): M86.671 - Other chronic osteomyelitis, right ankle and foot (2) Bacteremia Current Visit: Yes Status: Acute Assessment and plan: Patient found to have MRSA per PCR; repeat blood cultures pending Infectious disease following with recommendations to continue IV vancomycin (3) Sepsis Current Visit: No Status: Acute Assessment and plan: -Secondary to and management as above Qualifiers: Sepsis type: sepsis due to unspecified organism Qualified Code(s): A41.9 - Sepsis, unspecified organism (4) Diabetes mellitus Current Visit: No Status: Chronic Assessment and plan: Continue sliding scale insulin Qualifiers: Diabetes mellitus type: type 2 Diabetes mellitus penitentiary insulin use: with penitentiary use Diabetes mellitus complication status: with skin complications Diabetes mellitus complication detail: with foot ulcer Qualified Code(s): E11.621 - Type 2 diabetes mellitus with foot ulcer; L97.509 - Non-pressure chronic ulcer of other part of unspecified foot with unspecified severity; L97.509 - Non-pressure chronic ulcer of other part of unspecified foot with unspecified severity; L97.509 - Non-pressure chronic ulcer of other part of unspecified foot with unspecified severity; L97.509 - Non-pressure chronic ulcer of other part of unspecified foot with unspecified severity; 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 Absent: accessory muscle use, rales, rhonchi, wheezes - Cardiovascular Cardiovascular exam: Present: RRR, +S1, +S2. Absent: diastolic murmur, gallop, rubs, systolic murmur Internal Medicine: Result - Labs CBC & Chem 7: 01/10/18 04:57 01/10/18 04:57 Labs: Short CBC 01/10/18 Range/Units 04:57 WBC 8.8 (4.3-11.1) K/mcL Hgb 9.0 L D (11.5-15.4) g/dL Hct 27.5 L (35.3-44.9) % Plt Count 555 H (140-400) K/mcL Neutrophils # 5.7 (1.6-8.9) K/mcL BMP 01/10/18 04:57 Sodium 138 Potassium 3.9 Chloride 102 Carbon Dioxide 29 BUN 24 H Creatinine 1.13 Glucose 44 L Calcium 9.3 - Impressions Impressions Foot X-Ray 01/10/18 12:41 IMPRESSION: Findings are again consistent with osteomyelitis in the calcaneus. Erosive changes in the cuboid are better evaluated on CT. D/ / Feliciano Max MD / Feliciano Max MD Interpreting Provider: Feliciano Max MD Consult Discharge Plan - Plan Referrals: Alejandro Le DO [Primary Care Provider] -
[2018-01-10 23:13] LABS: C-Reactive Protein 138 mg/L (Less than 10)
[2018-01-11] MEDS: *HR* Heparin 5,000 UNIT/ML VIAL SQ SCH ×2 (05:52→17:39)
[2018-01-11] MEDS: Lactobacillus 1 EACH CAP.SPRINK PO SCH ×2 (07:56→09:41)
[2018-01-11] MEDS: Aspirin Enteric Coated 81 MG Tablet PO SCH (07:56)
[2018-01-11 09:18] LABS: Basophils % 0.5 %; Eosinophils # 0.4 K/mcL (0.0-0.6); Eosinophils % 4.7 %; Hematocrit 27.9 % (35.3-44.9); Immature Granulocytes % 0.4 % (0-4); Lymphocytes % 24.2 %; Mean Corpuscular HGB Conc 32.3 g/dL (31.6-35.5); Mean Corpuscular Hemoglobin 29.5 pg (28.0-33.3); Mean Corpuscular Volume 91.5 fL (83.0-100.0); Mean Platelet Volume 8.7 fL (9.4-12.4); Monocytes # 0.5 K/mcL (0.0-1.3); Monocytes % 6.7 %; Neutrophils # 5.1 K/mcL (1.6-8.9); Platelet Count 505 K/mcL (140-400); Red Blood Count 3.05 M/mcL (3.82-4.97); Red Cell Distribution Width 13.6 % (11.5-14.5); Segmented Neutrophils % 63.5 %
[2018-01-11] MEDS: Insulin LISPRO 300 UNITS/3 ML VIAL SQ SCH ×4 (09:24→21:35)
[2018-01-11] MEDS: Nicotine 21 MG PATCH.TD24 TD SCH (09:32)
[2018-01-11] MEDS: FLUoxetine 20 MG CAPSULE PO SCH (09:32)
[2018-01-11] MEDS: Gabapentin 400 MG CAPSULE PO SCH ×3 (09:32→20:58)
[2018-01-11] MEDS: Cholecalciferol (D-3) 1,000 UNIT TABLET PO SCH (09:32)
[2018-01-11] MEDS: Lisinopril-HCTZ 20-12.5mg TABLET PO SCH (09:32)
[2018-01-11] MEDS: Buprenorphine Hcl/Naloxone Hcl [Buprenorphin-Naloxon SL SCH ×2 (09:35→20:59)
[2018-01-11 09:54] LABS: BUN/Creatinine Ratio 19 (6-26); Blood Urea Nitrogen 20 mg/dL (6-20); Calcium 8.6 mg/dL (8.6-10.3); Carbon Dioxide 29 mEq/L (23-29); Chloride 103 mEq/L (98-107); Glucose 176 mg/dL (70-105); Osmolality,Calculated 289 (280-300); Sodium 136 mEq/L (136-145); eGFR For African Americans > 60 (> 60); eGFR For Non-African Americans 56 (> 60)
--- NOTE | 2018-01-11 12:59 | Infectious Disease Progress No ---
Date of Encounter: 01/11/18 Time of Encounter: 12:57 - Assessment and Plan (1) Sepsis Current Visit: No Status: Acute The patient had two SIRS criteria. Likely secondary to bacteremia. Improved. Afebrile. Leukocytosis resolved. Tachycardia persists. Blood culture sdrawn 01/08/18 are positive 2/2 sets for GPC, MRSA per PCR. Repeat blood cultures drawn 01/09/18 are NGTD x 2 sets. Qualifiers: Sepsis type: sepsis due to unspecified organism Qualified Code(s): A41.9 - Sepsis, unspecified organism (2) Bacteremia Current Visit: Yes Status: Acute Causative organism: MRSA per PCR. Source: Unclear. The patient has a non-healing surgical/diabetic foot ulcer to the right foot, but per Dr. Snider, this does not appear infected. Uncomplicated - the patient does not have any indwelling hardware or evidence of septic emboli. Blood cultures drawn 01/08/18 are positive 2/2 sets. Repeat blood cultures drawn 01/09/18 are NGTD x 2 sets. She has no endocarditis stigmata noted on exam. She has one major Modified Sosa's Criteria. The patient will need a TTE prior to discharge. If negative, may need to consider a ELYSE depending on the clinical picture. Continue Vancomycin IV. Pharmacy to dose. Goal trough ~15. Monitor renal function and for drug toxicity and dose-adjust antibiotics. Duration of treatment depends on the clinical picture. Avoid insertion of central venous access until blood cultures are negative x 48 hours. (3) Osteomyelitis Current Visit: Yes Status: Acute Location: Right calcaneus. Causative organism unclear, but likely MRSA given the blood culture results. Wound culture is negative. CT of the right LE shows chronic OM of the calcaneus which has progressed when compared with previous exam. Also noted is a large ulceration that extends to the level of the underlying bone of the calcaneus and interval development of cortical destruction of the adjacent cuboid at the calcaneocuboid articulation compatible with osteomyelitis of the cuboid. Podiatry consulted and following. Planning to take the patient to the OR later today. Will request intra-op cultures. Baseline ESR 90, CRP 138. Wound culture obtained per nursing and is pending. Continue Vancomycin IV. Pharmacy to dose. Goal trough ~15. Continue cipro 400mg IV Q12H. Await cultures. De-escalate if/when able. Duration of treatment depends on the clinical picture. Monitor renal function and for drug toxicity and dose-adjust antibiotics. Qualifiers: Osteomyelitis type: other chronic Osteomyelitis location: foot Laterality : right Qualified Code(s): M86.671 - Other chronic osteomyelitis, right ankle and foot (4) Nonhealing surgical wound Current Visit: No Status: Acute Location: Right heel. Secondary to right foot I & D for OM of the right calcaneus in September 2017. Per wound care notes, has had improvement in the size of the wound and clinically does not appear infected, but CT scan shows progression of bony erosion. Podiatry consulted and following. Planning to take the patient to the OR later today. Wound care and activity restrictions per the podiatry team. Qualifiers: Encounter type: subsequent encounter Qualified Code(s): T81.89XD - Other complications of procedures, not elsewhere classified, subsequent encounter (5) Diabetic foot ulcer Current Visit: No Status: Acute Location: Right heel. See recommendations above. Qualifiers: Diabetic foot ulcer location: heel Diabetes mellitus type: type 2 Laterality: right Non-pressure ulcer stage: with fat layer exposed Qualified Code(s): E11.621 - Type 2 diabetes mellitus with foot ulcer; L97.412 - Non-pressure chronic ulcer of right heel and midfoot with fat layer exposed; L97.412 - Non-pressure chronic ulcer of right heel and midfoot with fat layer exposed; L97.412 - Non-pressure chronic ulcer of right heel and midfoot with fat layer exposed; L97.412 - Non-pressure chronic ulcer of right heel and midfoot with fat layer exposed (6) Diabetes mellitus Current Visit: No Status: Chronic Controlled. The patient's HgbA1C has gone from 12% to 7.9% in one month. Recommend aggressive glucose monitoring and control to promote wound healing and prevent re-infection. Qualifiers: Diabetes mellitus type: type 2 Diabetes mellitus intermediate insulin use: with intermediate use Diabetes mellitus complication status: with skin complications Diabetes mellitus complication detail: with foot ulcer Qualified Code(s): E11.621 - Type 2 diabetes mellitus with foot ulcer; L97.509 - Non-pressure chronic ulcer of other part of unspecified foot with unspecified severity; L97.509 - Non-pressure chronic ulcer of other part of unspecified foot with unspecified severity; L97.509 - Non-pressure chronic ulcer of other part of unspecified foot with unspecified severity; L97.509 - Non-pressure chronic ulcer of other part of unspecified foot with unspecified severity; Z79.4 - junior accounting clerk (current) use of insulin; Z79.4 - custodial (current) use of insulin; Z79.4 - junior accounting clerk (current) use of insulin; Z79.4 - custodial (current ) use of insulin (7) Peripheral neuropathy Current Visit: No Status: Chronic Qualifiers: Peripheral neuropathy type: polyneuropathy, unspecified Qualified Code(s): G62.9 - Polyneuropathy, unspecified (8) Tobacco abuse Current Visit: No Status: Chronic Discussed the importance of smoking cessation with the patient and how it can affect the healing of the wound. - Subjective Interval history: Patient seen and examined. No acute events noted overnight. Patient states she feels a little better this morning. Denies fevers, chills, or rigors. Denies nausea, vomiting, or diarrhea, but states she does not have much of an appetite this morning. Denies abdominal pain, urinary complaints. Denies chest pain, shortness of breath, or cough. Denies oral thrush or new skin lesions. She does have a scabbed lesion to the left elbow that does not appear infected. Surgery planned for later today. Infect Dis PN-Objective Data - Labs CBC & Chem 7: 01/11/18 08:53 01/11/18 08:53 Labs: Laboratory Results - last 24 hr 01/10/18 01/10/18 01/10/18 04:57 04:57 16:55 WBC RBC Hgb Hct MCV MCH MCHC RDW Plt Count MPV Immature Gran % Seg Neutrophils % Lymphocytes % Monocytes % Eosinophils % Basophils % Neutrophils # Lymphocytes # Monocytes # Eosinophils # Basophils # ESR 90 H Sodium 138 Potassium 3.9 Chloride 102 Carbon Dioxide 29 BUN 24 H Creatinine 1.13 Est GFR ( Amer) > 60 Est GFR (Non-Af Amer) 52 L BUN/Creatinine Ratio 21 Glucose 44 L POC Glucose 128 H Calculated Osmolality 287 Calcium 9.3 Magnesium 1.8 C-Reactive Protein 138 H 01/10/18 01/11/18 01/11/18 21:04 05:09 08:53 WBC 8.1 RBC 3.05 L Hgb 9.0 L Hct 27.9 L MCV 91.5 MCH 29.5 MCHC 32.3 RDW 13.6 Plt Count 505 H MPV 8.7 L Immature Gran % 0.4 Seg Neutrophils % 63.5 Lymphocytes % 24.2 Monocytes % 6.7 Eosinophils % 4.7 Basophils % 0.5 Neutrophils # 5.1 Lymphocytes # 2.0 Monocytes # 0.5 Eosinophils # 0.4 Basophils # 0.0 ESR Sodium Potassium Chloride Carbon Dioxide BUN Creatinine Est GFR ( Amer) Est GFR (Non-Af Amer) BUN/Creatinine Ratio Glucose POC Glucose 130 H 192 H Calculated Osmolality Calcium Magnesium C-Reactive Protein 01/11/18 01/11/18 01/11/18 08:53 09:13 11:32 WBC RBC Hgb Hct MCV MCH MCHC RDW Plt Count MPV Immature Gran % Seg Neutrophils % Lymphocytes % Monocytes % Eosinophils % Basophils % Neutrophils # Lymphocytes # Monocytes # Eosinophils # Basophils # ESR Sodium 136 Potassium 4.0 Chloride 103 Carbon Dioxide 29 BUN 20 Creatinine 1.06 Est GFR ( Amer) > 60 Est GFR (Non-Af Amer) 56 L BUN/Creatinine Ratio 19 Glucose 176 H POC Glucose 179 H 188 H Calculated Osmolality 289 Calcium 8.6 Magnesium C-Reactive Protein Cultures: Cultures 01/10/18 10:25 Wound Culture - Preliminary Right Foot No pathogens isolated. - Impressions Impressions Foot X-Ray 01/10/18 12:41 IMPRESSION: Findings are again consistent with osteomyelitis in the calcaneus. Erosive changes in the cuboid are better evaluated on CT. D/ / Feliciano Max MD / Feliciano Max MD Interpreting Provider: Feliciano Max MD Exam - Constitutional Vitals: Temp Pulse Resp BP Pulse Ox 98.2 F 85 14 130/86 95 01/11/18 12:01 01/11/18 12:01 01/11/18 12:01 01/11/18 12:01 01/11/18 12:01 General appearance: average body habitus, cooperative, no acute distress - Head Head exam: Present: atraumatic, normal inspection, normocephalic - Eye Eye exam: Present: EOMI, normal appearance, PERRL Pupils: Present: normal accommodation Additional comments: No subconjunctival hemorrhage noted. - ENT ENT exam: Present: mucous membranes moist - Neck Neck exam: Present: normal inspection - Respiratory Respiratory exam: Present: CTAB. Absent: rales, respiratory distress, rhonchi, wheezes - Cardiovascular Cardiovascular exam: Present: +S1, +S2, tachycardia. Absent: irregular rhythm - GI/Abdominal GI/Abdominal exam: Present: normal bowel sounds, soft. Absent: distended, tenderness - Extremities Exam Additional comments: Wound VAC dressing noted to the right heel without redness, warmth, or fluctuance. - Neurological Exam Neurological exam: Present: alert, oriented X3, no focal deficits - Psychiatric Psychiatric exam: Present: normal affect, normal mood - Skin Skin exam: Present: dry, intact, normal color, warm Additional comments: No endocarditis stigmata noted. Consult Discharge Plan - Plan Referrals: Alejandro Le DO [Primary Care Provider] - - Attending Attestation I examined this patient and my medical decision-making was reviewed with the Resident Physician. I agree with the documented findings, disposition and treatment plan as described except to the extent set forth below.
[2018-01-11] MEDS ORDERED: Acetaminophen 325 MG TABLET PO PRN (14:57)
--- NOTE | 2018-01-11 18:19 | Internal Med Progress Note ---
Date of Encounter: 01/12/18 Time of Encounter: 11:00 - Assessment and plan (1) Osteomyelitis Current Visit: Yes Status: Acute Assessment and plan: -CT of right lower extremity shows chronic osteomyelitis of the calcaneus which has progressed compared to prior exam. -Wound cultures negative -Infectious disease consulted with recommendations to continuing IV vancomycin and IV Cipro -Podiatry also following with recommendations to continue medical management at this point Qualifiers: Osteomyelitis type: other chronic Osteomyelitis location: foot Laterality : right Qualified Code(s): M86.671 - Other chronic osteomyelitis, right ankle and foot (2) Bacteremia Current Visit: Yes Status: Acute Assessment and plan: -Repeat blood cultures are negative -Continue IV vancomycin/Cipro per infectious disease (3) Sepsis Current Visit: No Status: Acute Qualifiers: Sepsis type: sepsis due to unspecified organism Qualified Code(s): A41.9 - Sepsis, unspecified organism (4) Diabetes mellitus Current Visit: No Status: Chronic Assessment and plan: Continue sliding scale Qualifiers: Diabetes mellitus type: type 2 Diabetes mellitus terminal operations manager insulin use: with longterm use Diabetes mellitus complication status: with skin complications Diabetes mellitus complication detail: with foot ulcer Qualified Code(s): E11.621 - Type 2 diabetes mellitus with foot ulcer; L97.509 - Non-pressure chronic ulcer of other part of unspecified foot with unspecified severity; L97.509 - Non-pressure chronic ulcer of other part of unspecified foot with unspecified severity; L97.509 - Non-pressure chronic ulcer of other part of unspecified foot with unspecified severity; L97.509 - Non-pressure chronic ulcer of other part of unspecified foot with unspecified severity; Z79.4 - rodent exterminator (current) use of insulin; Z79.4 - halfway (current) use of insulin; Z79.4 - rodent exterminator (current) use of insulin; Z79.4 - rodent exterminator (current ) use of insulin - Subjective Interval history: Patient with resolved leukocytosis after initiation of IV antibiotics and has been afebrile - Constitutional Vitals: Temp Pulse Resp BP Pulse Ox 98.1 F 92 16 108/71 94 01/11/18 15:43 01/11/18 15:43 01/11/18 15:43 01/11/18 15:43 01/11/18 15:43 General appearance: Present: A&O X 3, no acute distress, answers questions appropriately - Respiratory Respiratory exam: Present: CTAB. Absent: accessory muscle use, rales, rhonchi, wheezes - Cardiovascular Cardiovascular exam: Present: RRR, +S1, +S2. Absent: diastolic murmur, gallop, rubs, systolic murmur Internal Medicine: Result - Labs CBC & Chem 7: 01/11/18 08:53 01/11/18 08:53 Labs: Short CBC 01/11/18 Range/Units 08:53 WBC 8.1 (4.3-11.1) K/mcL Hgb 9.0 L (11.5-15.4) g/dL Hct 27.9 L (35.3-44.9) % Plt Count 505 H (140-400) K/mcL Neutrophils # 5.1 (1.6-8.9) K/mcL BMP 01/10/18 01/11/18 04:57 08:53 Sodium 138 136 Potassium 3.9 4.0 Chloride 102 103 Carbon Dioxide 29 29 BUN 24 H 20 Creatinine 1.13 1.06 Glucose 44 L 176 H Calcium 9.3 8.6 Consult Discharge Plan - Plan Referrals: Alejandro Le DO [Primary Care Provider] -
[2018-01-12] MEDS: *HR* Heparin 5,000 UNIT/ML VIAL SQ SCH ×2 (05:56→17:36)
[2018-01-12] MEDS: Cholecalciferol (D-3) 1,000 UNIT TABLET PO SCH (08:30)
[2018-01-12] MEDS: Lisinopril-HCTZ 20-12.5mg TABLET PO SCH (08:30)
[2018-01-12] MEDS: Aspirin Enteric Coated 81 MG Tablet PO SCH (08:30)
[2018-01-12] MEDS: FLUoxetine 20 MG CAPSULE PO SCH (08:30)
[2018-01-12] MEDS: Lactobacillus 1 EACH CAP.SPRINK PO SCH (08:31)
[2018-01-12] MEDS: Insulin LISPRO 300 UNITS/3 ML VIAL SQ SCH ×4 (08:31→20:30)
[2018-01-12] MEDS: Nicotine 21 MG PATCH.TD24 TD SCH (08:31)
[2018-01-12] MEDS: Gabapentin 400 MG CAPSULE PO SCH ×3 (08:31→20:25)
[2018-01-12] MEDS: Buprenorphine Hcl/Naloxone Hcl [Buprenorphin-Naloxon SL SCH ×2 (08:34→20:31)
[2018-01-12] MEDS ORDERED: Vancomycin 1 EACH in 0.9 % Sodium Chloride 500 ML IVPB PRN (09:00)
[2018-01-12 09:04] LABS: Basophils # 0.1 K/mcL (0.0-0.2); Basophils % 0.6 %; Eosinophils # 0.5 K/mcL (0.0-0.6); Eosinophils % 5.5 %; Hematocrit 28.7 % (35.3-44.9); Hemoglobin 9.4 g/dL (11.5-15.4); Immature Granulocytes % 0.3 % (0-4); Lymphocytes # 2.4 K/mcL (0.6-4.6); Lymphocytes % 25.1 %; Mean Corpuscular HGB Conc 32.8 g/dL (31.6-35.5); Mean Corpuscular Hemoglobin 29.8 pg (28.0-33.3); Mean Corpuscular Volume 91.1 fL (83.0-100.0); Mean Platelet Volume 8.8 fL (9.4-12.4); Monocytes # 0.6 K/mcL (0.0-1.3); Monocytes % 5.8 %; Platelet Count 559 K/mcL (140-400); Red Blood Count 3.15 M/mcL (3.82-4.97); Red Cell Distribution Width 13.5 % (11.5-14.5); Segmented Neutrophils % 62.7 %
[2018-01-12 09:21] LABS: BUN/Creatinine Ratio 19 (6-26); Blood Urea Nitrogen 20 mg/dL (6-20); Carbon Dioxide 27 mEq/L (23-29); Chloride 102 mEq/L (98-107); Glucose 226 mg/dL (70-105); Osmolality,Calculated 294 (280-300); Potassium 4.4 mEq/L (3.5-5.1); Sodium 137 mEq/L (136-145); eGFR For African Americans > 60 (> 60); eGFR For Non-African Americans 56 (> 60)
[2018-01-12] MEDS ORDERED: Lidocaine -MPF 1% 5 ML AMPUL INFILT ONE (09:55)
[2018-01-12] MEDS ORDERED: Lidocaine -MPF 1% 2 ML VIAL INFILT ONE (10:15)
--- NOTE | 2018-01-12 10:53 | Infectious Disease Progress No ---
Date of Encounter: 01/12/18 Time of Encounter: 10:51 - Assessment and Plan (1) Sepsis Current Visit: No Status: Acute The patient had two SIRS criteria. Likely secondary to bacteremia. Improved. Afebrile. Leukocytosis resolved. Tachycardia persists, but is better. Blood culture sdrawn 01/08/18 are positive 2/2 sets for MRSA. Repeat blood cultures drawn 01/09/18 are NGTD x 2 sets. Qualifiers: Sepsis type: sepsis due to unspecified organism Qualified Code(s): A41.9 - Sepsis, unspecified organism (2) Bacteremia Current Visit: Yes Status: Acute Causative organism: MRSA per PCR. Source: Unclear. The patient has a non-healing surgical/diabetic foot ulcer to the right foot, but per Dr. Snider, this does not appear infected. Uncomplicated - the patient does not have any indwelling hardware or evidence of septic emboli. Blood cultures drawn 01/08/18 are positive 2/2 sets. Repeat blood cultures drawn 01/09/18 prior to antibiotic administration are NGTD x 2 sets. She has no endocarditis stigmata noted on exam. She has one major Modified Sosa's Criteria. The patient will need a TTE prior to discharge. If negative, will need a ELYSE. Continue Vancomycin IV. Pharmacy to dose. Goal trough ~15. Monitor renal function and for drug toxicity and dose-adjust antibiotics. Duration of treatment depends on the clinical picture, but recommend a total of 14 days of Vancomycin from the first set of negative blood cultures, then discontinue. Will re-check blood cultures 1 week after antibiotic therapy is completed. Treat through 01/23/18, then discontinue. Repeat blood cultures to be drawn 01/31/18. Consult VAT for PICC line insertion prior to discharge. Will need weekly CBC, BUN/Cr, and Vanc trough. Will need weekly PICC care per protocol. Follow up with ID 01/31/18 at 0940. (3) Osteomyelitis Current Visit: Yes Status: Acute Location: Right calcaneus. Causative organism unclear, but likely MRSA given the blood culture results. Wound culture is negative. CT of the right LE shows chronic OM of the calcaneus which has progressed when compared with previous exam. Also noted is a large ulceration that extends to the level of the underlying bone of the calcaneus and interval development of cortical destruction of the adjacent cuboid at the calcaneocuboid articulation compatible with osteomyelitis of the cuboid. Podiatry consulted and following. Surgery canceled based on the fact that clinically the foot does not appear infected and the Podiatry team feels that the risks of disrupting the healing that has taken place to this point outweighs the benefits. Baseline ESR 90, CRP 138. Continue Vancomycin IV. Pharmacy to dose. Goal trough ~15. Discontinue Cipro. Duration of treatment depends on the clinical picture. Monitor renal function and for drug toxicity and dose-adjust antibiotics. Qualifiers: Osteomyelitis type: other chronic Osteomyelitis location: foot Laterality : right Qualified Code(s): M86.671 - Other chronic osteomyelitis, right ankle and foot (4) Nonhealing surgical wound Current Visit: No Status: Acute Location: Right heel. Secondary to right foot I & D for OM of the right calcaneus in September 2017. Per wound care notes, has had improvement in the size of the wound and clinically does not appear infected, but CT scan shows progression of bony erosion. Podiatry consulted and following. Wound care and activity restrictions per the podiatry team. Qualifiers: Encounter type: subsequent encounter Qualified Code(s): T81.89XD - Other complications of procedures, not elsewhere classified, subsequent encounter (5) Diabetic foot ulcer Current Visit: No Status: Acute Location: Right heel. See recommendations above. Qualifiers: Diabetic foot ulcer location: heel Diabetes mellitus type: type 2 Laterality: right Non-pressure ulcer stage: with fat layer exposed Qualified Code(s): E11.621 - Type 2 diabetes mellitus with foot ulcer; L97.412 - Non-pressure chronic ulcer of right heel and midfoot with fat layer exposed; L97.412 - Non-pressure chronic ulcer of right heel and midfoot with fat layer exposed; L97.412 - Non-pressure chronic ulcer of right heel and midfoot with fat layer exposed; L97.412 - Non-pressure chronic ulcer of right heel and midfoot with fat layer exposed (6) Diabetes mellitus Current Visit: No Status: Chronic Controlled. The patient's HgbA1C has gone from 12% to 7.9% in one month. Recommend aggressive glucose monitoring and control to promote wound healing and prevent re-infection. Qualifiers: Diabetes mellitus type: type 2 Diabetes mellitus buttermaker helper insulin use: with jail use Diabetes mellitus complication status: with skin complications Diabetes mellitus complication detail: with foot ulcer Qualified Code(s): E11.621 - Type 2 diabetes mellitus with foot ulcer; L97.509 - Non-pressure chronic ulcer of other part of unspecified foot with unspecified severity; L97.509 - Non-pressure chronic ulcer of other part of unspecified foot with unspecified severity; L97.509 - Non-pressure chronic ulcer of other part of unspecified foot with unspecified severity; L97.509 - Non-pressure chronic ulcer of other part of unspecified foot with unspecified severity; Z79.4 - penitentiary (current) use of insulin; Z79.4 - intermediate manager (current) use of insulin; Z79.4 - penitentiary (current) use of insulin; Z79.4 - penitentiary (current ) use of insulin (7) Peripheral neuropathy Current Visit: No Status: Chronic Qualifiers: Peripheral neuropathy type: polyneuropathy, unspecified Qualified Code(s): G62.9 - Polyneuropathy, unspecified (8) Tobacco abuse Current Visit: No Status: Chronic Discussed the importance of smoking cessation with the patient and how it can affect the healing of the wound. - Subjective Interval history: Patient seen and examined. No acute events noted overnight. Patient states she feels better this morning. Denies fevers, chills, or rigors. Denies nausea, vomiting, or diarrhea. States her appetite is better this morning. Denies abdominal pain, urinary complaints. Denies chest pain, shortness of breath, or cough. Denies oral thrush or new skin lesions. She does have a scabbed lesion to the left elbow that does not appear infected. Surgery cancelled yesterday as Podiatry does not think she needed it based on the clinical picture. Infect Dis PN-Objective Data - Labs CBC & Chem 7: 01/12/18 08:44 01/12/18 08:44 Labs: Laboratory Results - last 24 hr 01/11/18 01/11/18 01/11/18 11:32 15:36 16:27 WBC RBC Hgb Hct MCV MCH MCHC RDW Plt Count MPV Immature Gran % Seg Neutrophils % Lymphocytes % Monocytes % Eosinophils % Basophils % Neutrophils # Lymphocytes # Monocytes # Eosinophils # Basophils # Sodium Potassium Chloride Carbon Dioxide BUN Creatinine Est GFR ( Amer) Est GFR (Non-Af Amer) BUN/Creatinine Ratio Glucose POC Glucose 188 H 243 H Calculated Osmolality Calcium Vancomycin Trough 30.4 H* Random Vancomycin 01/11/18 01/12/18 01/12/18 21:18 05:54 08:08 WBC RBC Hgb Hct MCV MCH MCHC RDW Plt Count MPV Immature Gran % Seg Neutrophils % Lymphocytes % Monocytes % Eosinophils % Basophils % Neutrophils # Lymphocytes # Monocytes # Eosinophils # Basophils # Sodium Potassium Chloride Carbon Dioxide BUN Creatinine Est GFR ( Amer) Est GFR (Non-Af Amer) BUN/Creatinine Ratio Glucose POC Glucose 253 H 230 H Calculated Osmolality Calcium Vancomycin Trough Random Vancomycin 18.8 01/12/18 01/12/18 08:44 08:44 WBC 9.6 RBC 3.15 L Hgb 9.4 L Hct 28.7 L MCV 91.1 MCH 29.8 MCHC 32.8 RDW 13.5 Plt Count 559 H MPV 8.8 L Immature Gran % 0.3 Seg Neutrophils % 62.7 Lymphocytes % 25.1 Monocytes % 5.8 Eosinophils % 5.5 Basophils % 0.6 Neutrophils # 6.0 Lymphocytes # 2.4 Monocytes # 0.6 Eosinophils # 0.5 Basophils # 0.1 Sodium 137 Potassium 4.4 Chloride 102 Carbon Dioxide 27 BUN 20 Creatinine 1.06 Est GFR ( Amer) > 60 Est GFR (Non-Af Amer) 56 L BUN/Creatinine Ratio 19 Glucose 226 H POC Glucose Calculated Osmolality 294 Calcium 9.0 Vancomycin Trough Random Vancomycin Cultures: Cultures 01/10/18 10:25 Anaerobic Culture - Preliminary Right Foot At this time, no anaerobic growth is present. The culture will be finalized after 5 days of incubation. 01/10/18 10:25 Wound Culture - Preliminary Right Foot No pathogens isolated. Exam - Constitutional Vitals: Temp Pulse Resp BP Pulse Ox 97.9 F 90 16 139/91 96 01/12/18 08:14 01/12/18 08:14 01/12/18 08:14 01/12/18 08:14 01/12/18 08:14 General appearance: average body habitus, cooperative, no acute distress - Head Head exam: Present: atraumatic, normal inspection, normocephalic - Eye Eye exam: Present: EOMI, normal appearance, PERRL Pupils: Present: normal accommodation Additional comments: No subconjunctival hemorrhage noted. - ENT ENT exam: Present: mucous membranes moist - Neck Neck exam: Present: normal inspection - Respiratory Respiratory exam: Present: CTAB. Absent: rales, respiratory distress, rhonchi, wheezes - Cardiovascular Cardiovascular exam: Present: RRR, +S1, +S2 - GI/Abdominal GI/Abdominal exam: Present: normal bowel sounds, soft. Absent: distended, tenderness - Extremities Exam Extremities exam: Absent: joint swelling, pedal edema, tenderness Additional comments: Right foot heel wound with moderate amount of sanguinous drainage noted. Wound VAC dressing removed and wound bed noted to have 100% granulation tissue, but there is a foul odor. Skin along the ulceration is macerated. No erythema or fluctuance noted. - Back Exam Back exam: Present: normal inspection. Absent: paraspinal tenderness, vertebral tenderness - Neurological Exam Neurological exam: Present: alert, oriented X3, no focal deficits - Psychiatric Psychiatric exam: Present: normal affect, normal mood - Skin Skin exam: Present: dry, intact, normal color, warm Additional comments: No endocarditis stigmata noted. Consult Discharge Plan - Plan Referrals: Alejandro Le DO [Primary Care Provider] - Prescriptions: Vancomycin HCl in Dextrose 5 % [Vancomycin-D5w 1.5 Gram/250 ml] 1.5 gm IV Q24H # 14 plast..bag - Attending Attestation I examined this patient and my medical decision-making was reviewed with the Resident Physician. I agree with the documented findings, disposition and treatment plan as described except to the extent set forth below.
[2018-01-12] MEDS ORDERED: Naloxone 0.4 MG/ML INJ ONE (16:05)
[2018-01-12] MEDS ORDERED: *HR* Midazolam HCl 5 MG/5 ML VIAL IVP ONE (16:06)
[2018-01-12] MEDS ORDERED: Lidocaine Viscous Oral Soln 15 ML SOLUTION ONE (16:06)
[2018-01-12] MEDS ORDERED: *HR* FentaNYL (PF) 250 MCG/5 ML VIAL ONE (16:06)
[2018-01-12] MEDS: Insulin DETEMIR 100 UNIT/ML X5UNITS SQ SCH (17:35)
--- NOTE | 2018-01-12 17:42 | Internal Med Progress Note ---
Date of Encounter: 01/12/18 Time of Encounter: 11:00 - Assessment and plan (1) Osteomyelitis Current Visit: Yes Status: Acute Assessment and plan: -CT of right lower extremity shows chronic osteomyelitis of the calcaneus which has progressed compared to prior exam. -Infectious disease consulted with recommendations for two-week course of IV vancomycin -Podiatry also following with recommendations to continue medical management without surgical intervention Qualifiers: Osteomyelitis type: other chronic Osteomyelitis location: foot Laterality : right Qualified Code(s): M86.671 - Other chronic osteomyelitis, right ankle and foot (2) Bacteremia Current Visit: Yes Status: Acute Assessment and plan: Patient found to have MRSA per PCR; repeat blood cultures negative ELYSE negative for any valvular vegetations Infectious disease following with recommendations to continue IV vancomycin for 2 weeks (3) Sepsis Current Visit: No Status: Acute Assessment and plan: -Resolved; secondary to and management as above Qualifiers: Sepsis type: sepsis due to unspecified organism Qualified Code(s): A41.9 - Sepsis, unspecified organism (4) Diabetes mellitus Current Visit: No Status: Chronic Assessment and plan: Continue sliding scale insulin Qualifiers: Diabetes mellitus type: type 2 Diabetes mellitus [facility] insulin use: with freezer person use Diabetes mellitus complication status: with skin complications Diabetes mellitus complication detail: with foot ulcer Qualified Code(s): E11.621 - Type 2 diabetes mellitus with foot ulcer; L97.509 - Non-pressure chronic ulcer of other part of unspecified foot with unspecified severity; L97.509 - Non-pressure chronic ulcer of other part of unspecified foot with unspecified severity; L97.509 - Non-pressure chronic ulcer of other part of unspecified foot with unspecified severity; L97.509 - Non-pressure chronic ulcer of other part of unspecified foot with unspecified severity; Z79.4 - headwaiter/headwaitress (current) use of insulin; Z79.4 - [facility] (current) use of insulin; Z79.4 - headwaiter/headwaitress (current) use of insulin; Z79.4 - headwaiter/headwaitress (current ) use of insulin - Subjective Interval history: Patient's blood cultures negative and now without leukocytosis and afebrile Patient for a ELYSE today to rule out vegetations due to history of MRSA bacteremia We will monitor patient overnight due to sedation for ELYSE and plan for discharge on 01/13/18 - Constitutional Vitals: Temp Pulse Resp BP Pulse Ox 98.6 F 98 16 113/74 96 01/12/18 15:09 01/12/18 15:09 01/12/18 15:09 01/12/18 15:09 01/12/18 15:09 General appearance: Present: A&O X 3, no acute distress, answers questions appropriately - Respiratory Respiratory exam: Present: CTAB. Absent: accessory muscle use, rales, rhonchi, wheezes - Cardiovascular Cardiovascular exam: Present: RRR, +S1, +S2. Absent: diastolic murmur, gallop, rubs, systolic murmur Internal Medicine: Result - Labs CBC & Chem 7: 01/12/18 08:44 01/12/18 08:44 Labs: Short CBC 01/12/18 Range/Units 08:44 WBC 9.6 (4.3-11.1) K/mcL Hgb 9.4 L (11.5-15.4) g/dL Hct 28.7 L (35.3-44.9) % Plt Count 559 H (140-400) K/mcL Neutrophils # 6.0 (1.6-8.9) K/mcL BMP 01/12/18 08:44 Sodium 137 Potassium 4.4 Chloride 102 Carbon Dioxide 27 BUN 20 Creatinine 1.06 Glucose 226 H Calcium 9.0 Consult Discharge Plan - Plan Referrals: Alejandro Le DO [Primary Care Provider] - Prescriptions: Vancomycin HCl in Dextrose 5 % [Vancomycin-D5w 1.5 Gram/250 ml] 1.5 gm IV Q24H # 14 plast..bag
[2018-01-13] MEDS: *HR* Heparin 5,000 UNIT/ML VIAL SQ SCH (05:43)
[2018-01-13 07:28] VITALS: BP 107/68
[2018-01-13] MEDS: Insulin DETEMIR 100 UNIT/ML X5UNITS SQ SCH (08:31)
[2018-01-13] MEDS: Insulin LISPRO 300 UNITS/3 ML VIAL SQ SCH (08:31)
[2018-01-13] MEDS: FLUoxetine 20 MG CAPSULE PO SCH (08:32)
[2018-01-13] MEDS: Lactobacillus 1 EACH CAP.SPRINK PO SCH (08:32)
[2018-01-13] MEDS: Gabapentin 400 MG CAPSULE PO SCH (08:32)
[2018-01-13] MEDS: Cholecalciferol (D-3) 1,000 UNIT TABLET PO SCH (08:32)
[2018-01-13] MEDS: Lisinopril-HCTZ 20-12.5mg TABLET PO SCH (08:32)
[2018-01-13] MEDS: Aspirin Enteric Coated 81 MG Tablet PO SCH (08:32)
[2018-01-13] MEDS: Nicotine 21 MG PATCH.TD24 TD SCH (08:32)
[2018-01-13] MEDS: Buprenorphine Hcl/Naloxone Hcl [Buprenorphin-Naloxon SL SCH (08:38)
--- NOTE | 2018-01-13 10:31 | Discharge Summary ---
- NOTES TO OUTPATIENT PROVIDER Notes to Outpatient Provider: Patient to follow-up with infectious disease for weekly CBC, BUNs/creatinine and vancomycin trough Orders not resulted at time of discharge: Pending orders 01/10/18 10:25 Culture,Anaerobic [RM] Stat Date of Encounter: 01/27/18 Time of Encounter: 09:00 - Discharge Diagnosis (1) Osteomyelitis Status: Acute Qualifiers: Osteomyelitis type: other chronic Osteomyelitis location: foot Laterality : right Qualified Code(s): M86.671 - Other chronic osteomyelitis, right ankle and foot (2) Bacteremia Status: Acute (3) Sepsis Status: Acute Qualifiers: Sepsis type: sepsis due to unspecified organism Qualified Code(s): A41.9 - Sepsis, unspecified organism (4) Diabetes mellitus Status: Chronic Qualifiers: Diabetes mellitus type: type 2 Diabetes mellitus [facility] insulin use: with senior care use Diabetes mellitus complication status: with skin complications Diabetes mellitus complication detail: with foot ulcer Qualified Code(s): E11.621 - Type 2 diabetes mellitus with foot ulcer; L97.509 - Non-pressure chronic ulcer of other part of unspecified foot with unspecified severity; L97.509 - Non-pressure chronic ulcer of other part of unspecified foot with unspecified severity; L97.509 - Non-pressure chronic ulcer of other part of unspecified foot with unspecified severity; L97.509 - Non-pressure chronic ulcer of other part of unspecified foot with unspecified severity; Z79.4 - intermediate designer (current) use of insulin; Z79.4 - custodial (current) use of insulin; Z79.4 - intermediate designer (current) use of insulin; Z79.4 - intermediate designer (current ) use of insulin Hospital course: Ms. Larson is a 47 year old female - Time Spent with Patient Total time spent providing and/or coordinating discharge services: - Discharge Medications Prescriptions: Lactobacillus [Culturelle] 1 each PO DAILY #14 cap.sprink Vancomycin HCl in Dextrose 5 % [Vancomycin-D5w 1.5 Gram/250 ml] 1.5 gm IV Q24H # 14 plast..bag Home Medications: Atorvastatin [Lipitor] 20 mg PO QPM 06/11/15 [History] Cholecalciferol (Vitamin D3) [Vitamin D3] 10,000 unit PO WE 06/11/15 [History] Ibuprofen [Motrin] 800 mg PO TID PRN 06/11/15 [History] Insulin ASPART [NovoLOG] 0 - 12 unit SQ AD PRN 06/11/15 [History] Insulin Glargine,Hum.rec.anlog [Lantus Solostar] 35 units SQ QPM 06/11/15 [ History] Quetiapine Fumarate [Seroquel] 100 mg PO HS 06/11/15 [History] Aspirin [Lo-Dose Aspirin EC] 81 mg PO DAILY 10/10/17 [History] Lisinopril-HCTZ 20-12.5 [Prinzide 20-12.5] 1 tab PO DAILY 10/10/17 [History] Omeprazole [PriLOSEC] 40 mg PO DAILY 10/10/17 [History] Gabapentin [Neurontin] 800 mg PO TID 11/23/17 [History] Buprenorphine HCl/Naloxone HCl [Buprenorphin-Naloxon 8-2 mg Sl] 1 tab SL BID [History] FLUoxetine HCl [Prozac] 20 mg PO DAILY 01/09/18 [History] Liraglutide [Victoza 2-Yunier] 1.2 mg SQ DAILY 01/09/18 [History] Omeprazole [PriLOSEC] 40 mg PO DAILY 01/09/18 [History] Vancomycin HCl in Dextrose 5 % [Vancomycin-D5w 1.5 Gram/250 ml] 1.5 gm IV Q24H # 14 plast..bag 01/12/18 [Rx] Lactobacillus [Culturelle] 1 each PO DAILY #14 cap.sprink 01/13/18 [Rx] Allergies/Adverse Reactions: 3 Allergy/AdvReac Type Severity Reaction Status Date / Time Penicillins Allergy Swelling Verified 11/23/17 12:37 of Lip/Tongue/Throat Date of admission: 01/09/18 21:16 Primary care physician: Alejandro Le Consults: 01/09/18 22:49 Consult to Wound Care [CONS] Routine Reason for Consult: Wound vac to right heal, pt reports skin graft done to this heal 01/03/18. Call Completed: No 01/10/18 15:35 Consult to Physician [CONS] Routine Consulting Provider: Oliver Snider Reason for Consult: Rt foot diabetic wound. Call Completed: No 01/12/18 09:55 Consult to Invasive Line Access Team [CONS] Routine Reason for Consult: Picc Line Insertion Line Type: PICC - Constitutional Vitals: Temp Pulse Resp BP Pulse Ox 98.5 F 90 15 107/68 96 01/13/18 07:18 01/13/18 07:18 01/13/18 07:18 01/13/18 07:18 01/13/18 08:41 General appearance: Present: A&O X 3, no acute distress, answers questions appropriately - Patient Status Disposition: Home Health Service Condition: Fair - Discharge Instructions Instructions: Methicillin Resistant Staphylococcus Aureus (DC), Peripherally Inserted Central Catheters and Midline Catheters (DC), Negative Pressure Wound Therapy (DC) Follow Up With: Alejandro Le DO [Primary Care Provider] - Forms: ED Satisfaction Letter
--- NOTE | 2018-01-13 10:33 | Physician Discharge Referral ---
Home Health/Hosp Referral Info Transfer to: Home Health - Diagnosis (1) Osteomyelitis Priority: Primary Status: Acute (2) Bacteremia Priority: Primary Status: Acute (3) Sepsis Priority: Primary Status: Acute (4) Diabetes mellitus Priority: Secondary Status: Chronic - Respiratory Orders Smoking Cessation: Smoking cessation has been advised. For more information, call the [place] Tobacco Quit Line at 0-708-BCVM-NOW. - Services Needed Following services are medically necessary services: Nursing, Home Infusion - Transfer Medications Prescriptions: Vancomycin HCl in Dextrose 5 % [Vancomycin-D5w 1.5 Gram/250 ml] 1.5 gm IV Q24H # 14 plast..bag Home Medications: Atorvastatin [Lipitor] 20 mg PO QPM 06/11/15 [History] Cholecalciferol (Vitamin D3) [Vitamin D3] 10,000 unit PO WE 06/11/15 [History] Ibuprofen [Motrin] 800 mg PO TID PRN 06/11/15 [History] Insulin ASPART [NovoLOG] 0 - 12 unit SQ AD PRN 06/11/15 [History] Insulin Glargine,Hum.rec.anlog [Lantus Solostar] 35 units SQ QPM 06/11/15 [ History] Quetiapine Fumarate [Seroquel] 100 mg PO HS 06/11/15 [History] Aspirin [Lo-Dose Aspirin EC] 81 mg PO DAILY 10/10/17 [History] Lisinopril-HCTZ 20-12.5 [Prinzide 20-12.5] 1 tab PO DAILY 10/10/17 [History] Omeprazole [PriLOSEC] 40 mg PO DAILY 10/10/17 [History] Gabapentin [Neurontin] 800 mg PO TID 11/23/17 [History] Buprenorphine HCl/Naloxone HCl [Buprenorphin-Naloxon 8-2 mg Sl] 1 tab SL BID [History] FLUoxetine HCl [PROzac] 20 mg PO DAILY 01/09/18 [History] Liraglutide [Victoza 2-Yunier] 1.2 mg SQ DAILY 01/09/18 [History] Omeprazole [PriLOSEC] 40 mg PO DAILY 01/09/18 [History] Vancomycin HCl in Dextrose 5 % [Vancomycin-D5w 1.5 Gram/250 ml] 1.5 gm IV Q24H # 14 plast..bag 01/12/18 [Rx] Allergies/Adverse Reactions: 3 Allergy/AdvReac Type Severity Reaction Status Date / Time Penicillins Allergy Swelling Verified 11/23/17 12:37 of Lip/Tongue/Throat Certification: Further, I certify that my clinical findings support that this patient is homebound (i.e. absences from home require considerable and taxing effort and are for medical reasons or [employer] services or infrequently or short duration when for other reasons) because: Homebound Reason: Patient requires assistance of a person or device to safely leave home Attestation: My signature below is to certify that this patient is under my care and that I, or nurse practitioner, or a physician's production administrative assistant working with me, has a face-to -face encounter with this patient.
[2018-01-13] MEDS ORDERED: Aminoglycoside Consult 1 EACH MC ONE (12:44)
--- NOTE | 2018-01-13 14:43 | Discharge Summary ---
- NOTES TO OUTPATIENT PROVIDER Notes to Outpatient Provider: Patient will need weekly CBC, BUN/creatinine and vancomycin trough results sent to infectious disease Orders not resulted at time of discharge: Pending orders 01/10/18 10:25 Culture,Anaerobic [RM] Stat Date of Encounter: 01/13/18 Time of Encounter: 11:00 - Discharge Diagnosis (1) Osteomyelitis Priority: Primary Status: Acute Qualifiers: Osteomyelitis type: other chronic Osteomyelitis location: foot Laterality : right Qualified Code(s): M86.671 - Other chronic osteomyelitis, right ankle and foot (2) Bacteremia Priority: Primary Status: Acute (3) Sepsis Priority: Primary Status: Acute Qualifiers: Sepsis type: sepsis due to unspecified organism Qualified Code(s): A41.9 - Sepsis, unspecified organism (4) Diabetes mellitus Priority: Secondary Status: Chronic Qualifiers: Diabetes mellitus type: type 2 Diabetes mellitus intermediate frame tender insulin use: with intermediate frame tender use Diabetes mellitus complication status: with skin complications Diabetes mellitus complication detail: with foot ulcer Qualified Code(s): E11.621 - Type 2 diabetes mellitus with foot ulcer; L97.509 - Non-pressure chronic ulcer of other part of unspecified foot with unspecified severity; L97.509 - Non-pressure chronic ulcer of other part of unspecified foot with unspecified severity; L97.509 - Non-pressure chronic ulcer of other part of unspecified foot with unspecified severity; L97.509 - Non-pressure chronic ulcer of other part of unspecified foot with unspecified severity; Z79.4 - snf (current) use of insulin; Z79.4 - intermediate frame tender (current) use of insulin; Z79.4 - snf (current) use of insulin; Z79.4 - snf (current ) use of insulin Hospital course: Patient is a 47-year-old female with past medical history significant for diabetes, diabetic foot ulcer, hypertension who presented to the ER on 01/09/18 due to generalized weakness. Patient reported of a 3-4 day history of generalized weakness. She was diagnosed with a diabetic foot ulcer on 09/2017 and finished a 6 week course of IV vancomycin. She had blood cultures drawn at primary care providers office that were positive for MRSA. Patient was advised to come to the hospital for further evaluation. During patients hospital stay, CT of the right lower extremity showed chronic osteomyelitis of the calcaneus which has progressed compared to prior exam. Patient was started on IV vancomycin. Podiatry was consulted with recommendations for continued medical management since patients white count improved on IV antibiotics. Infectious disease was also consulted with recommendations for a 2 week course of IV vancomycin as an outpatient. Repeat blood cultures were negative as were wound cultures. A transesophageal echocardiogram was also done which did not show any vegetations. Patient will be discharged to continue a 2 week course of IV vancomycin and to follow-up with infectious disease and podiatry. - Time Spent with Patient Total time spent providing and/or coordinating discharge services: Less than 30 minutes - Discharge Medications Prescriptions: Lactobacillus [Culturelle] 1 each PO DAILY #14 cap.sprink Vancomycin HCl in Dextrose 5 % [Vancomycin-D5w 1.5 Gram/250 ml] 1.5 gm IV Q24H # 14 plast..bag Home Medications: Atorvastatin [Lipitor] 20 mg PO QPM 06/11/15 [History] Cholecalciferol (Vitamin D3) [Vitamin D3] 10,000 unit PO WE 06/11/15 [History] Ibuprofen [Motrin] 800 mg PO TID PRN 06/11/15 [History] Insulin ASPART [NovoLOG] 0 - 12 unit SQ AD PRN 06/11/15 [History] Insulin Glargine,Hum.rec.anlog [Lantus Solostar] 35 units SQ QPM 06/11/15 [ History] Quetiapine Fumarate [Seroquel] 100 mg PO HS 06/11/15 [History] Aspirin [Lo-Dose Aspirin EC] 81 mg PO DAILY 10/10/17 [History] Lisinopril-HCTZ 20-12.5 [Prinzide 20-12.5] 1 tab PO DAILY 10/10/17 [History] Omeprazole [PriLOSEC] 40 mg PO DAILY 10/10/17 [History] Gabapentin [Neurontin] 800 mg PO TID 11/23/17 [History] Buprenorphine HCl/Naloxone HCl [Buprenorphin-Naloxon 8-2 mg Sl] 1 tab SL BID [History] FLUoxetine HCl [Prozac] 20 mg PO DAILY 01/09/18 [History] Liraglutide [Victoza 2-Yunier] 1.2 mg SQ DAILY 01/09/18 [History] Omeprazole [PriLOSEC] 40 mg PO DAILY 01/09/18 [History] Vancomycin HCl in Dextrose 5 % [Vancomycin-D5w 1.5 Gram/250 ml] 1.5 gm IV Q24H # 14 plast..bag 01/12/18 [Rx] Lactobacillus [Culturelle] 1 each PO DAILY #14 cap.sprink 01/13/18 [Rx] Allergies/Adverse Reactions: 3 Allergy/AdvReac Type Severity Reaction Status Date / Time Penicillins Allergy Swelling Verified 11/23/17 12:37 of Lip/Tongue/Throat Date of admission: 01/09/18 21:16 Primary care physician: Alejandro Le Consults: 01/09/18 22:49 Consult to Wound Care [CONS] Routine Reason for Consult: Wound vac to right heal, pt reports skin graft done to this heal 01/03/18. Call Completed: No 01/10/18 15:35 Consult to Physician [CONS] Routine Consulting Provider: Oliver Snider Reason for Consult: Rt foot diabetic wound. Call Completed: No 01/12/18 09:55 Consult to Invasive Line Access Team [CONS] Routine Reason for Consult: Picc Line Insertion Line Type: PICC - Constitutional Vitals: Temp Pulse Resp BP Pulse Ox 98.5 F 90 15 107/68 96 01/13/18 07:18 01/13/18 07:18 01/13/18 07:18 01/13/18 07:18 01/13/18 08:41 General appearance: Present: A&O X 3, no acute distress, answers questions appropriately - Respiratory Respiratory exam: Present: CTAB. Absent: accessory muscle use, rales, rhonchi, wheezes - Cardiovascular Cardiovascular exam: Present: RRR, +S1, +S2. Absent: diastolic murmur, gallop, rubs, systolic murmur - Patient Status Disposition: Home Health Service Condition: Fair - Discharge Instructions Instructions: Methicillin Resistant Staphylococcus Aureus (DC), Peripherally Inserted Central Catheters and Midline Catheters (DC), Negative Pressure Wound Therapy (DC) Follow Up With: Alejandro Le DO [Primary Care Provider] - Forms: ED Satisfaction Letter
== END 2018-01-13 12:45 | disposition home health service (06) | DRG 872 ==
LOC: 3ANU 12:14 → EMEROO 12:14 → 3ANU 18:02
PROVIDERS: ADMIT Student in an Organized Health Care Education/Training Program; ATTEND Hospitalist

== ENCOUNTER 2018-02-15 12:34 | Inpatient (IN) ==
[2018-02-15] MEDS ORDERED: 0.9 % Sodium Chloride 1,000 ML IVC ONE (13:22)
[2018-02-15 13:34] LABS: Basophils # 0.1 K/mcL (0.0-0.2); Basophils % 0.4 %; Eosinophils # 0.2 K/mcL (0.0-0.6); Eosinophils % 1.2 %; Hematocrit 29.3 % (35.3-44.9); Hemoglobin 9.4 g/dL (11.5-15.4); Immature Granulocytes % 0.5 % (0-4); Lymphocytes # 0.9 K/mcL (0.6-4.6); Lymphocytes % 6.8 %; Mean Corpuscular HGB Conc 32.1 g/dL (31.6-35.5); Mean Corpuscular Hemoglobin 29.2 pg (28.0-33.3); Mean Platelet Volume 9.3 fL (9.4-12.4); Monocytes # 0.6 K/mcL (0.0-1.3); Monocytes % 4.5 %; Neutrophils # 11.6 K/mcL (1.6-8.9); Platelet Count 518 K/mcL (140-400); Red Blood Count 3.22 M/mcL (3.82-4.97); Red Cell Distribution Width 14.6 % (11.5-14.5); Segmented Neutrophils % 86.6 %
[2018-02-15] MEDS ORDERED: Acetaminophen 325 MG TABLET PO ONE (13:39)
[2018-02-15 13:41] LABS: INR 1.2; Prothrombin Time 12.7 Seconds (9.4-12.1)
[2018-02-15 13:43] LABS: Activated Partial Thrombo Time 31.2 Seconds (26.0-36.0)
--- NOTE | 2018-02-15 13:46 | Emergency Department Note ---
Disposition Clinical Impression: Bacteremia, MRSA bacteremia Osteomyelitis Qualifiers: Osteomyelitis type: other Osteomyelitis location: foot Laterality: right Qualified Code(s): M86.8X7 - Other osteomyelitis, ankle and foot Disposition: Admitted As Inpatient Condition: Good Time of Disposition: 13:55 General Adult HPI - General Stated complaint: Blood infection,needs admitted Time Seen by Provider: 02/15/18 12:41 Source: patient Limitations: no limitations Nursing Notes Reviewed: Yes Vital Signs Reviewed: Yes - History of Present Illness HPI Narrative: Miss Larson is a very pleasant 47-year-old female with a past history of type 2 diabetes, hypertension and GERD who presents to the [facility] emergency department the chief complaint of "positive blood cultures ". Patient has been following Dr. Snider for her podiatry services for her right lower extremity. She has had multiple debridements and skin flaps to her right foot. Her last known surgical procedure was in September 2017. At that time a wound VAC was placed and has been there since then. She has been following Dr. Snider at the wound clinic throughout. She was admitted back in December for osteomyelitis of her calcaneus with positive blood cultures for MRSA. Patient underwent a ELYSE was not had no valvular abnormalities. Her only complaints today are mild pain to her right foot. She reports that she had recent blood work in volume blood cultures that came back positive for MRSA as well as a foot x-ray yesterday that demonstrated findings consistent with osteomyelitis. Dr. Snider discussed these findings with her over the phone and recommended further evaluation in the emergency department. No other complaints at this time. Pain Scale: 4 - Related Data Home Medications Medication Instructions Recorded Confirmed Atorvastatin [Lipitor] 20 mg PO QPM 06/11/15 02/15/18 Cholecalciferol (Vitamin D3) 10,000 unit PO WE 06/11/15 02/15/18 [Vitamin D3] Ibuprofen [Motrin] 800 mg PO TID PRN 06/11/15 02/15/18 Insulin ASPART [NovoLOG] 0 - 12 unit SQ AD PRN 06/11/15 02/15/18 Insulin Glargine,Hum.rec.anlog 35 units SQ QPM 06/11/15 02/15/18 [Lantus Solostar] Quetiapine Fumarate [Seroquel] 100 mg PO HS 06/11/15 02/15/18 Aspirin [Lo-Dose Aspirin EC] 81 mg PO DAILY 10/10/17 02/15/18 Lisinopril-HCTZ 20-12.5 [Prinzide 1 tab PO DAILY 10/10/17 02/15/18 20-12.5] Omeprazole [PriLOSEC] 40 mg PO DAILY 10/10/17 02/15/18 Gabapentin [Neurontin] 800 mg PO TID 11/23/17 02/15/18 Liraglutide [Victoza 2-Yunier] 1.2 mg SQ DAILY 01/09/18 02/15/18 FLUoxetine HCl [Prozac] 40 mg PO QAM 02/15/18 02/15/18 Previous Rx's Medication Instructions Recorded Lactobacillus [Culturelle] 1 each PO DAILY #14 cap.sprink 01/13/18 Allergies Allergy/AdvReac Type Severity Reaction Status Date / Time Penicillins Allergy Swelling Verified 11/23/17 12:37 of Lip/Tongue/Throat Review of Systems: Constitutional: No fever Vision: No blurred vision ENT: No rhinorrhea Respiratory: No cough Cardiovascular: No chest pain Allergic: No allergies : No blood in urine GI: No blood in stool Hematologic: No bruising Dermatologic: No skin rash Musculoskeletal: See history of present illness Neuro: No numbness of the extremities Past Medical History - Past Medical History Medical history: Reports: diabetes, GERD, hypertension Surgical history: Reports: hysterectomy, other Psychiatric history: Reports: depression - Social History Smoking Status: Current every day smoker Smokeless Tobacco Status: No Alcohol use: Reports: none Drug use: Reports: none Physical Exam CONSTITUTIONAL: Alert and oriented X3 in no apparent distress HEAD: Normocephalic; atraumatic. EYES: Ocular movements grossly intact Oropharynx: pink/moist RESP: NRD without use of accessory musculature, CTA b/l with no wheezes/rales/ rhonchi CARD: Regular rhythm, without murmurs, rubs, or gallop ABD: grossly normal, soft, non-tender, no guarding/distention/rigidity SKIN: normal appearance, no pallor/diaphoresis,mottling,jaundice,cyanosis EXT: PT pulses 2+ and symmetrical; wound VAC in place to her right lower extremity, 1st toe amp on left PSYCH: appropriate mood/affect - General Limitations: no limitations General appearance: alert, in no apparent distress Course Course Narrative: Patient was seen and examined at bedside. Vital signs were reviewed and showed a temperature of 100.0 along with mild tachycardia. Physical examination was relatively unremarkable except for a wound VAC placed to her right lower extremity. CBC demonstrates mild leukocytosis of 13.4 and BMP shows creatinine of 1.3. Given her recent positive cultures of MRSA on the of this month, we will order IV vancomycin. 1 L bolus of fluids will be administered. Foot x- ray performed yesterday demonstrates findings consistent with osteomyelitis and we will further evaluate with CT of the right foot. Tylenol and pain control were given. Case was discussed with hospitalist team, Dr. Raygoza, he will accept patient for hospital admission. No further recommendations per hospitalist team. Patient is hemodynamically stable. This disposition and plan were discussed with patient and family who understand and agreed to this plan. All questions and concerns were addressed. Vital Signs Temperature 100 F H 02/15/18 12:41 Pulse Rate 110 02/15/18 12:41 Respiratory Rate 18 02/15/18 12:41 Blood Pressure 147/88 02/15/18 12:41 O2 Sat by Pulse Oximetry 94 02/15/18 12:41 Temperature 100 F H 02/15/18 12:41 Pulse Rate 106 02/15/18 13:36 Respiratory Rate 18 02/15/18 14:26 Blood Pressure 145/76 02/15/18 14:26 O2 Sat by Pulse Oximetry 93 02/15/18 13:36 Oxygen Delivery Oxygen Delivery Room Air Medical Decision Making - Medical Records Medical records reviewed: Yes I reviewed the patient's medical records. - Lab Data Lab results reviewed: Yes I reviewed the patient's lab results. Result diagrams: 02/15/18 13:07 02/15/18 13:07 Lab Results 02/15/18 02/15/18 02/15/18 Range/Units 13:07 13:07 13:07 WBC 13.4 H (4.3-11.1) K/mcL RBC 3.22 L (3.82-4.97) M/mcL Hgb 9.4 L (11.5-15.4) g/dL Hct 29.3 L (35.3-44.9) % MCV 91.0 (83.0-100.0) fL MCH 29.2 (28.0-33.3) pg MCHC 32.1 (31.6-35.5) g/dL RDW 14.6 H (11.5-14.5) % Plt Count 518 H (140-400) K/mcL MPV 9.3 L (9.4-12.4) fL Immature Gran % 0.5 (0-4) % Seg Neutrophils % 86.6 % Lymphocytes % 6.8 % Monocytes % 4.5 % Eosinophils % 1.2 % Basophils % 0.4 % Neutrophils # 11.6 H (1.6-8.9) K/mcL Lymphocytes # 0.9 (0.6-4.6) K/mcL Monocytes # 0.6 (0.0-1.3) K/mcL Eosinophils # 0.2 (0.0-0.6) K/mcL Basophils # 0.1 (0.0-0.2) K/mcL PT 12.7 H (9.4-12.1) Seconds INR 1.2 APTT 31.2 (26.0-36.0) Seconds Sodium 132 L (136-145) mEq/L Potassium 4.2 (3.5-5.1) mEq/L Chloride 98 (98-107) mEq/L Carbon Dioxide 26 (23-29) mEq/L BUN 34 H (6-20) mg/dL Creatinine 1.30 H (0.60-1.20) mg/dL Est GFR ( Amer) 53 L (> 60) Est GFR (Non-Af Amer) 44 L (> 60) BUN/Creatinine Ratio 26 (6-26) Glucose 344 H (70-105) mg/dL Calculated Osmolality 295 (280-300) Calcium 9.3 (8.6-10.3) mg/dL - Radiology Data Radiology results reviewed: Yes I reviewed the patient's radiology results.
[2018-02-15 13:53] LABS: Calcium 9.3 mg/dL (8.6-10.3); Potassium 4.2 mEq/L (3.5-5.1)
[2018-02-15] MEDS ORDERED: *HR* FentaNYL (PF) 100 MCG/2 ML VIAL IVP ONE (14:22)
--- NOTE | 2018-02-15 14:28 | Emergency Department Note ---
Disposition Clinical Impression: Bacteremia Osteomyelitis Qualifiers: Osteomyelitis type: other Osteomyelitis location: foot Laterality: right Qualified Code(s): M86.8X7 - Other osteomyelitis, ankle and foot Disposition: Admitted As Inpatient Referrals: Alejandro Le DO [Non-Partnered Physician] - General Adult HPI - General Chief complaint: ED Recheck/Abnormal Lab/Rx Stated complaint: Blood infection,needs admitted Time Seen by Provider: 02/15/18 12:41 Source: patient Mode of arrival: ambulatory Limitations: no limitations Nursing Notes Reviewed: Yes Vital Signs Reviewed: Yes - History of Present Illness HPI Narrative: I, Oliver Davies, examined this patient and my medical decision-making was reviewed with the ORE GRADER/PA/Advanced Practice Nurse/Resident Physician. I agree with the documented findings, disposition and treatment plan as described except to the extent set forth below. 47-year-old female presents to the emergency department for further evaluation of blood cultures positive with MRSA. Patient has a history of osteomyelitis of the right foot. Patient is following wound care with Dr. Snider and has taken multiple courses of vancomycin as an outpatient. She first took a six- week course and then a 2 week course. Patient states her pain has been increasing in the right lower extremity similar to when her infection had worsened in the past. Patient is mildly tachycardic in the emergency department and she has an elevated temperature. Patient will be admitted to the hospitalist for further care and evaluation of likely osteomyelitis of her foot. She is started on vancomycin the emergency department for the positive blood cultures. Pain Scale: 4 - Related Data Home Medications Medication Instructions Recorded Confirmed Atorvastatin [Lipitor] 20 mg PO QPM 06/11/15 02/15/18 Cholecalciferol (Vitamin D3) 10,000 unit PO WE 06/11/15 02/15/18 [Vitamin D3] Ibuprofen [Motrin] 800 mg PO TID PRN 06/11/15 02/15/18 Insulin ASPART [NovoLOG] 0 - 12 unit SQ AD PRN 06/11/15 02/15/18 Insulin Glargine,Hum.rec.anlog 35 units SQ QPM 06/11/15 02/15/18 [Lantus Solostar] Quetiapine Fumarate [Seroquel] 100 mg PO HS 06/11/15 02/15/18 Aspirin [Lo-Dose Aspirin EC] 81 mg PO DAILY 10/10/17 02/15/18 Lisinopril-HCTZ 20-12.5 [Prinzide 1 tab PO DAILY 10/10/17 02/15/18 20-12.5] Omeprazole [PriLOSEC] 40 mg PO DAILY 10/10/17 02/15/18 Gabapentin [Neurontin] 800 mg PO TID 11/23/17 02/15/18 Liraglutide [Victoza 2-Yunier] 1.2 mg SQ DAILY 01/09/18 02/15/18 FLUoxetine HCl [Prozac] 40 mg PO QAM 02/15/18 02/15/18 Previous Rx's Medication Instructions Recorded Lactobacillus [Culturelle] 1 each PO DAILY #14 cap.sprink 01/13/18 Allergies Allergy/AdvReac Type Severity Reaction Status Date / Time Penicillins Allergy Swelling Verified 11/23/17 12:37 of Lip/Tongue/Throat Past Medical History - Past Medical History Medical history: Reports: diabetes, GERD, hypertension Surgical history: Reports: hysterectomy, other Psychiatric history: Reports: depression - Social History Smoking Status: Current every day smoker Smokeless Tobacco Status: No Alcohol use: Reports: none Drug use: Reports: none Physical Exam - General Limitations: no limitations General appearance: alert, in no apparent distress Course Vital Signs Temperature 100 F H 02/15/18 12:41 Pulse Rate 110 02/15/18 12:41 Respiratory Rate 18 02/15/18 12:41 Blood Pressure 147/88 02/15/18 12:41 O2 Sat by Pulse Oximetry 94 02/15/18 12:41 Temperature 100 F H 02/15/18 12:41 Pulse Rate 106 02/15/18 13:36 Respiratory Rate 16 02/15/18 13:36 Blood Pressure 161/83 02/15/18 13:36 O2 Sat by Pulse Oximetry 93 02/15/18 13:36 Oxygen Delivery Oxygen Delivery Nasal Cannula Medical Decision Making - Lab Data Result diagrams: 02/15/18 13:07 02/15/18 13:07 Lab Results 02/15/18 02/15/18 02/15/18 Range/Units 13:07 13:07 13:07 WBC 13.4 H (4.3-11.1) K/mcL RBC 3.22 L (3.82-4.97) M/mcL Hgb 9.4 L (11.5-15.4) g/dL Hct 29.3 L (35.3-44.9) % MCV 91.0 (83.0-100.0) fL MCH 29.2 (28.0-33.3) pg MCHC 32.1 (31.6-35.5) g/dL RDW 14.6 H (11.5-14.5) % Plt Count 518 H (140-400) K/mcL MPV 9.3 L (9.4-12.4) fL Immature Gran % 0.5 (0-4) % Seg Neutrophils % 86.6 % Lymphocytes % 6.8 % Monocytes % 4.5 % Eosinophils % 1.2 % Basophils % 0.4 % Neutrophils # 11.6 H (1.6-8.9) K/mcL Lymphocytes # 0.9 (0.6-4.6) K/mcL Monocytes # 0.6 (0.0-1.3) K/mcL Eosinophils # 0.2 (0.0-0.6) K/mcL Basophils # 0.1 (0.0-0.2) K/mcL PT 12.7 H (9.4-12.1) Seconds INR 1.2 APTT 31.2 (26.0-36.0) Seconds Sodium 132 L (136-145) mEq/L Potassium 4.2 (3.5-5.1) mEq/L Chloride 98 (98-107) mEq/L Carbon Dioxide 26 (23-29) mEq/L BUN 34 H (6-20) mg/dL Creatinine 1.30 H (0.60-1.20) mg/dL Est GFR ( Amer) 53 L (> 60) Est GFR (Non-Af Amer) 44 L (> 60) BUN/Creatinine Ratio 26 (6-26) Glucose 344 H (70-105) mg/dL Calculated Osmolality 295 (280-300) Calcium 9.3 (8.6-10.3) mg/dL
--- NOTE | 2018-02-15 15:20 | Internal Med History&Physical ---
Date of Encounter: 02/15/18 Time of Encounter: 15:20 Internal Medicine - H&P: HPI Admitted From: Home Plans for Post Hospital Care: Home History of present illness: Ms. Larson is a 47 year old female presents to the emergency department for further evaluation of blood cultures positive with MRSA drawn yesterday by her outboard system operator as patient had fever, chills for last 3 days. Patient had history of chronic osteomyelitis with MRSA since September 2017 and had multiple rounds of antibiotics under the guidance of ID specialist. ID specialist decided to stop antibiotic 2 weeks ago to see that how patient is doing without antibiotic but she ended up having above symptoms. Her ID specialist called today morning with positive blood culture report and advised to come to emergency room immediately. In ER patient was found to have mild fever and tachycardia. CT foot was done with finding suggestive of persistent osteomyelitis. First dose of IV vancomycin antibiotic was given in the ER. Your physician called on-call hospitalists for the admission with the diagnosis MRSA bacteremia with osteomyelitis. Patient denies nausea, vomiting, headache, dizziness, chest pain, shortness of breath, cough, abdominal pain, urinary complaint, constipation or diarrhea Past Med Surg Social Fam HX - Past Medical History Medical history: diabetes, GERD, hypertension Psychiatric history: depression - Past Surgical History Surgical History: hysterectomy, other - Social History Smoking Status: Current every day smoker Smokeless Tobacco Status: No Alcohol use: none Drug use: none - Family History Sister Hx Family Endocrine Disorder: Yes (Diabetes) Grandfather Hx Family Cardiac Disorders: Yes (Coronary artery disease at age 50) Father Family Member Ethnicity: Non- Living Status: Still Living Hx Family Cardiac Disorders: Yes Hx Family Respiratory Disorders: No Hx Family Cancer: Yes Hx Family GI Disorders: No Hx Family Endocrine Disorder: Yes Hx Family Neuromuscular Disorders: No Hx Family Neurologic Disorders: No Hx Family HEENT Disorders: No Hx Family Autoimmune Disorders: No Internal Medicine - H&P: Meds Atorvastatin [Lipitor] 20 mg PO QPM 06/11/15 [History] Cholecalciferol (Vitamin D3) [Vitamin D3] 10,000 unit PO WE 06/11/15 [History] Ibuprofen [Motrin] 800 mg PO TID PRN 06/11/15 [History] Insulin ASPART [NovoLOG] 0 - 12 unit SQ AD PRN 06/11/15 [History] Insulin Glargine,Hum.rec.anlog [Lantus Solostar] 35 units SQ QPM 06/11/15 [ History] Quetiapine Fumarate [Seroquel] 100 mg PO HS 06/11/15 [History] Aspirin [Lo-Dose Aspirin EC] 81 mg PO DAILY 10/10/17 [History] Lisinopril-HCTZ 20-12.5 [Prinzide 20-12.5] 1 tab PO DAILY 10/10/17 [History] Omeprazole [PriLOSEC] 40 mg PO DAILY 10/10/17 [History] Gabapentin [Neurontin] 800 mg PO TID 11/23/17 [History] Liraglutide [Victoza 2-Yunier] 1.2 mg SQ DAILY 01/09/18 [History] Lactobacillus [Culturelle] 1 each PO DAILY #14 cap.sprink 01/13/18 [Rx] FLUoxetine HCl [Prozac] 40 mg PO QAM 02/15/18 [History] 3 Allergy/AdvReac Type Severity Reaction Status Date / Time Penicillins Allergy Swelling Verified 11/23/17 12:37 of Lip/Tongue/Throat All Systems PM: A 10-system review of systems was performed and is negative for pertinent findings except as documented above in the HPI. - Constitutional Vitals: Temp Pulse Resp BP Pulse Ox 98.5 F 115 18 126/63 93 02/15/18 14:55 02/15/18 14:55 02/15/18 14:55 02/15/18 14:55 02/15/18 14:55 Exam: General appearance: No acute distress, A&O X 3. Obese Head exam: Atraumatic Eye exam:PERRLA ENT exam: Moist oral mucosa Neck nontender, supple Respiratory exam: Clear to auscultation bilaterally Cardiovascular exam: Regular rate and rhythm, no systolic murmur Abdominal exam: Soft, nontender, nondistended, positive bowel sounds Extremities exam: Right lower extremity-wound VAC in place. Nonhealing foot ulcer and the sole of right foot. +1 pedal edema bilaterally Skin-no rash, warm, dry, intact Neurological exam: Alert, awake, oriented 3, CN II-XII intact, no focal deficits. No facial droop. Normal speech. Internal Med - H&P Results - Labs CBC & Chem 7: 02/15/18 13:07 02/15/18 13:07 - Assessment and plan (1) MRSA bacteremia Current Visit: Yes Status: Acute Assessment and plan: Most likely osteomyelitis underlying source. Patient has systemic signs and symptom with blood cultures 2 positive for MRSA drawn on [id number] head podiatrists office. First dose of vancomycin as started in ER will continue vancomycin and pharmacy consultation for further dosing. consult ID specialist , already aware as office called to the patient for the admission. (2) Osteomyelitis Current Visit: Yes Status: Chronic Assessment and plan: Chronic persistent. CT foot was done. Corrugated Sheet Material Sheeter's aware about this admission. Will consult as well. Continue wound management as per outboard system operator' s advice. Fall precautions were concerned PT evaluation. Qualifiers: Osteomyelitis type: other Osteomyelitis location: foot Laterality: right Qualified Code(s): M86.8X7 - Other osteomyelitis, ankle and foot (3) Diabetes mellitus Current Visit: No Status: Chronic Assessment and plan: Hyperglycemia most likely due to underlying infection. Continue home dose of long-acting insulin. Started sliding scale insulin coverage is with highest scale. Diabetic diet. Address further dose of insulin as per blood glucose level. Accu-Chek every 6 hours. Qualifiers: Diabetes mellitus type: type 2 Diabetes mellitus fence installer insulin use: with fence installer use Diabetes mellitus complication status: with skin complications Diabetes mellitus complication detail: with foot ulcer Qualified Code(s): E11.621 - Type 2 diabetes mellitus with foot ulcer; L97.509 - Non-pressure chronic ulcer of other part of unspecified foot with unspecified severity; L97.509 - Non-pressure chronic ulcer of other part of unspecified foot with unspecified severity; L97.509 - Non-pressure chronic ulcer of other part of unspecified foot with unspecified severity; L97.509 - Non-pressure chronic ulcer of other part of unspecified foot with unspecified severity; Z79.4 - [facility] (current) use of insulin; Z79.4 - engineer gas pumping station (current) use of insulin; Z79.4 - engineer gas pumping station (current) use of insulin; Z79.4 - [facility] (current ) use of insulin (4) HTN (hypertension) Current Visit: No Status: Chronic Assessment and plan: Had AICHA inhibitor and hydrochlorothiazide due to acute kidney injury. Monitor BP closely. Hydralazine as needed. Will resume home medicines once creatinine becomes normal Qualifiers: Hypertension type: essential hypertension Qualified Code(s): I10 - Essential (primary) hypertension (5) Diabetic foot ulcer Current Visit: No Status: Acute Assessment and plan: Chronic ulcerative led to osteomyelitis. Wound management. Qualifiers: Diabetic foot ulcer location: heel Diabetes mellitus type: type 2 Laterality: right Non-pressure ulcer stage: with fat layer exposed Qualified Code(s): E11.621 - Type 2 diabetes mellitus with foot ulcer; L97.412 - Non-pressure chronic ulcer of right heel and midfoot with fat layer exposed; L97.412 - Non-pressure chronic ulcer of right heel and midfoot with fat layer exposed; L97.412 - Non-pressure chronic ulcer of right heel and midfoot with fat layer exposed; L97.412 - Non-pressure chronic ulcer of right heel and midfoot with fat layer exposed (6) Acute kidney injury Current Visit: No Status: Resolved Assessment and plan: Increased creatinine level but better than yesterday. Will hold AICHA inhibitor and HCTZ for now. Avoid nephrotoxic drug. Monitor BMP. (7) Hyperlipidemia Current Visit: No Status: Chronic Assessment and plan: Stable. Continue home medicine. Qualifiers: Hyperlipidemia type: unspecified Qualified Code(s): E78.5 - Hyperlipidemia , unspecified (8) Anemia Current Visit: No Status: Chronic Assessment and plan: Chronic. Patient not symptomatic. No active bleeding. Continue to monitor. Qualifiers: Anemia type: unspecified type Qualified Code(s): D64.9 - Anemia, unspecified (9) DVT prophylaxis Current Visit: No Status: Resolved Assessment and plan: Heparin, SCDs - Time Spent With Patient Total time spent is greater than 50% in coordination of care (as documented) at patient's floor/unit and/or counseling patient:
[2018-02-15] MEDS ORDERED: Naloxone 0.4 MG/ML INJ IVP PRN (16:26)
[2018-02-15] MEDS ORDERED: Dextrose Gel 15 GM/37.5 ML TUBE PO PRN ×2 (16:35)
[2018-02-15] MEDS ORDERED: *HR* Dextrose 50 % in Water (Syg) 50 ML SYRINGE IVP PRN (16:35)
[2018-02-15] MEDS ORDERED: D5% in Water 1,000 ML IVC PRN (16:35)
[2018-02-15] MEDS: *HR* Heparin 5,000 UNIT/ML VIAL SQ SCH ×2 (17:44→22:25)
[2018-02-15] MEDS: Nicotine 14 MG PATCH.TD24 TD PRN (17:44)
[2018-02-15] MEDS: Cholecalciferol (D-3) 1,000 UNIT TABLET PO SCH (17:44)
[2018-02-15] MEDS: Insulin LISPRO 300 UNITS/3 ML VIAL SQ SCH (17:45)
[2018-02-15] MEDS: Insulin DETEMIR 100 UNIT/ML X5UNITS SQ SCH (17:46)
[2018-02-15] MEDS ORDERED: Vancomycin (wt based) 1,000 MG VIAL IV SCH (21:00)
[2018-02-15] MEDS: Gabapentin 400 MG CAPSULE PO SCH (22:24)
[2018-02-16] MEDS: Insulin LISPRO 300 UNITS/3 ML VIAL SQ SCH ×5 (00:26→23:58)
[2018-02-16 05:53] LABS: Basophils % 0.5 %; Eosinophils # 0.2 K/mcL (0.0-0.6); Eosinophils % 2.7 %; Hematocrit 26.5 % (35.3-44.9); Hemoglobin 8.2 g/dL (11.5-15.4); Immature Granulocytes % 0.2 % (0-4); Lymphocytes # 2.2 K/mcL (0.6-4.6); Lymphocytes % 25.5 %; Mean Corpuscular HGB Conc 30.9 g/dL (31.6-35.5); Mean Corpuscular Hemoglobin 28.2 pg (28.0-33.3); Mean Corpuscular Volume 91.1 fL (83.0-100.0); Mean Platelet Volume 9.3 fL (9.4-12.4); Monocytes # 0.6 K/mcL (0.0-1.3); Monocytes % 7.1 %; Neutrophils # 5.4 K/mcL (1.6-8.9); Platelet Count 482 K/mcL (140-400); Red Blood Count 2.91 M/mcL (3.82-4.97); Red Cell Distribution Width 14.6 % (11.5-14.5)
[2018-02-16] MEDS: *HR* Heparin 5,000 UNIT/ML VIAL SQ SCH ×3 (06:52→20:27)
[2018-02-16] MEDS: FLUoxetine 20 MG CAPSULE PO SCH (09:20)
[2018-02-16] MEDS: Aspirin Enteric Coated 81 MG Tablet PO SCH (09:21)
[2018-02-16] MEDS: Gabapentin 400 MG CAPSULE PO SCH ×3 (09:21→20:27)
[2018-02-16] MEDS: Lactobacillus 1 EACH CAP.SPRINK PO SCH (09:21)
[2018-02-16] MEDS: Cholecalciferol (D-3) 1,000 UNIT TABLET PO SCH (09:21)
[2018-02-16] MEDS: Acetaminophen 325 MG TABLET PO PRN (10:40)
--- NOTE | 2018-02-16 11:33 | Infectious Disease Consult ---
Date of Encounter: 02/16/18 Time of Encounter: 11:21 Assessment and Plan (1) Sepsis Status: Acute Assessment and plan: The patient had three SIRS criteria plus ROGER on admission. Likely secondary to MRSA bacteremia and right foot OM. Improved. Afebrile. Tachycardia has improved. Leukocytosis has resolved. ROGER improved. Blood cultures drawn 02/14/18 are positive 2/2 sets for MRSA. Repeat blood cultures drawn 02/15/18 are pending x 2 sets. Qualifiers: Sepsis type: sepsis due to unspecified organism Qualified Code(s): A41.9 - Sepsis, unspecified organism (2) MRSA bacteremia Status: Acute Assessment and plan: Causative organism: MRSA. Source likely the right foot. Uncomplicated. Blood cultures drawn 02/14/18 are positive 2/2 sets for MRSA. Repeat blood cultures drawn 02/15/18 are pending x 2 sets. No endocarditis stigmata noted on exam. The patient has one major and one minor Modified Sosa's Criteria. Get TTE. May need to consider repeating ELYSE prior to discharge. Continue Vancomycin IV. Pharmacy to dose. Goal trough ~15. Duration of treatment depends on the clinical picture. She will require a prolonged course of IV antibiotics due to the osteomyelitis. Monitor renal function and for drug toxicity and dose-adjust antibiotics. Avoid insertion of central venous access until repeat blood cultures are negative x 48 hours. community services manager consult to assist with discharge planning. (3) Osteomyelitis Status: Chronic Assessment and plan: Location: Right calcanues, right cuboid, right navicular. Causative organism unclear, but likely MRSA given the blood culture results. Secondary to non-healing foot ulcer. X-ray of the right foot completed 02/14/18 showed findings consistent with OM of the calcaneus. CT of the right foot completed 02/15/18 showed chronic OM of the calcaneus with large adjacent ulceration extending to the underlying bone, appears grossly similar o previous exam. IT also showed cortical erosive change of the calcaneocuboid articulation and adjacent inferior aspect of the navicular, also compatible with OM. No abscess or SQ gas was noted. Podiatry consulted. Discussed with Dr. Snider. Planning for surgery the first of next week. Wound care and activity restrictions per the podiatry team. Check ESR and CRP. Get wound culture with next dressing change. Continue Vancomycin IV. Pharmacy to dose. Goal trough~ 15. Duration of treatment depends on the clinical picture, but likely 6 weeks of IV antibiotics if the foot is salvageable. Monitor renal function and for drug toxicity and dose-adjust antibiotics. Qualifiers: Osteomyelitis type: other Osteomyelitis location: foot Laterality: right Qualified Code(s): M86.8X7 - Other osteomyelitis, ankle and foot (4) Acute kidney injury Status: Acute Assessment and plan: Serum creatinine 1.30 on admission. Minimally improved today. Likely secondary to sepsis. Continue to trend. Strict I's and O's. Dose-adjust antibiotics. Avoid nephrotoxins as able. (5) Diabetic foot ulcer Status: Acute Assessment and plan: Location: Right heel. Secondary to non-healing surgical wound. Podiatry consulted and following. Wound care per the podiatry team's recommendations. Qualifiers: Diabetic foot ulcer location: heel Diabetes mellitus type: type 2 Laterality: right Non-pressure ulcer stage: with fat layer exposed Qualified Code(s): E11.621 - Type 2 diabetes mellitus with foot ulcer; L97.412 - Non-pressure chronic ulcer of right heel and midfoot with fat layer exposed; L97.412 - Non-pressure chronic ulcer of right heel and midfoot with fat layer exposed; L97.412 - Non-pressure chronic ulcer of right heel and midfoot with fat layer exposed; L97.412 - Non-pressure chronic ulcer of right heel and midfoot with fat layer exposed (6) Diabetes mellitus Status: Chronic Assessment and plan: HgbA1C 7.9% in October. Recommend aggressive glucose monitoring and control to promote wound healing and prevent re-infection. Management per the primary team. Qualifiers: Diabetes mellitus type: type 2 Diabetes mellitus skilled nursing insulin use: with skilled nursing use Diabetes mellitus complication status: with skin complications Diabetes mellitus complication detail: with foot ulcer Qualified Code(s): E11.621 - Type 2 diabetes mellitus with foot ulcer; L97.509 - Non-pressure chronic ulcer of other part of unspecified foot with unspecified severity; L97.509 - Non-pressure chronic ulcer of other part of unspecified foot with unspecified severity; L97.509 - Non-pressure chronic ulcer of other part of unspecified foot with unspecified severity; L97.509 - Non-pressure chronic ulcer of other part of unspecified foot with unspecified severity; Z79.4 - halfway (current) use of insulin; Z79.4 - halfway (current) use of insulin; Z79.4 - watermelon inspector (current) use of insulin; Z79.4 - watermelon inspector (current ) use of insulin (7) HTN (hypertension) Status: Chronic Qualifiers: Hypertension type: essential hypertension Qualified Code(s): I10 - Essential (primary) hypertension (8) Hyperlipidemia Status: Chronic Qualifiers: Hyperlipidemia type: unspecified Qualified Code(s): E78.5 - Hyperlipidemia , unspecified (9) Peripheral neuropathy Status: Chronic Qualifiers: Peripheral neuropathy type: polyneuropathy, unspecified Qualified Code(s): G62.9 - Polyneuropathy, unspecified (10) Tobacco abuse Status: Chronic Assessment and plan: The patient continues to smoke about a half a pack of cigarettes per day. Discussed the importance of smoking cessation and its effect on wound healing. Infectious Disease HPI - Data of Consult Patient: known to practice within the last 3 years Consult date: 02/16/18 Requesting Physician: Ida Daniel MD Primary Care Provider: Alejandro Le - Consult Narrative Reason for consult: MRSA bacteremia, osteomyelitis History of present illness: Ms. Larson is a 47 year old female with a past medical history of hypertension, hyperlipidemia, and uncontrolled diabetes. The patient was admitted to the hospital 02/15/18 for bacteremia and osteomyelitis. We are consulted 02/16/18 for antibiotic recommendations for bacteremia. Briefly, the patient is a 47 year old female with a past medical history as stated above. The patient is well-known to the ID service as we have been following the patient for the past few months for her foot infection and bacteremia. The patient had undergone a right great toe graft placement back in July. Post-op she developed a right heel ulcer due to offloading the toe wound. The wound had sudden regression at the beginning of September and was transferred here for podiatry evaluation. Upon arrival, the patient had sepsis- like picture and ROGER. She was evaluated by podiatry and taken to the OR on October 10 and had an I & D with incision and drainage of the right heel ulcer with bone biopsy of the right calcaneus, I & D of an abscess on the right distal foot. Wound culture was positive for S. mitis. Pathology was suspicious for osteomyelitis. Blood cultures were negative. Her sepsis and ROGER resolved. She was discharged home to complete a 6 week course of IV Rocephin and PO flagyl , which she completed on 11/29/17 and was transitioned to PO Omnicef to complete an additional 14 days. Her inflammatory markers improved, but had not normalized , but her clinical picture was consistent with no acute infection and her wound was improving. She continued to follow with Dr. Snider in the wound clinic. On December 21, she had an Apligraf applied and the wound VAC was removed. She was re-evaluated in the wound clinic on December 27 and had application of Apligraf and wound VAC. She was seen again 01/13/18 and noted to have general malaise, fatigue, and tachycardia. She had labs drawn that revealed MRSA bacteremia 2/2 sets and leukocytosis. She was called and told to come back to the ER. Repeat blood cultures obtained in the ER prior to antibiotic initiation were negative. Source was unclear as, at that point, the foot appeared to be doing great and had no evidence of acute infection. She was evaluated by Podiatry who agreed that the foot did not appear to be the source. She was treated with IV Vancomycin. ELYSE was negative. She completed a total of 14 days of IV Vancomycin. I saw her in the clinic and she was doing well. She had repeat blood cultures drawn 02/14/18 that came back positive 2/2 sets for MRSA. She was advised to come to the ER for admission and further workup. Upon arrival to the ER, the patient was tachycardic and had a low-grade fever. She was otherwise hemodynamically stable. Laboratory studies revealed leukocytosis with neutrophilic predominance, acute kidney injury, and hyperglycemia. She has CT of her right foot that showed chronic osteomyelitis of the calcaneus with large adjacent ulceration extending to the underlying bone that appears grossly similar to previous exam as well as cortical erosive change of the calcaneal cuboid articulation and adjacent inferior aspect of the navicular also compatible with osteomyelitis. There was no evidence of soft tissue gas or drainable fluid collection. The patient was given a dose of IV vancomycin and admitted to the hospital for further evaluation. Since admission, the patient has remained afebrile and hemodynamically stable. Her leukocytosis has resolved. Acute kidney injury is improving. Repeat blood cultures obtained in the emergency department are pending 2 sets. We have been asked to evaluate and make further recommendations. During my exam today, the patient endorses a history as stated above. She states that about 3 days ago she started feeling poorly with fatigue and malaise and subjective fevers and chills and rigors. She reports some chronic sinus congestion, but otherwise denies congestion, earache, or sore throat. She denies any chest pain, shortness of breath, or cough. She states her appetite has not been very good for about 3 days and she has had elevated blood sugars at home. She denies any nausea or vomiting or diarrhea. She denies any urinary complaints. She denies any pain at the site of the ulceration. She states there has been an issue with the wound VAC leaking and have not been able to get it fixed until recently. She does report some increased swelling and redness that she noticed yesterday. She denies any oral thrush or additional skin lesions. She states that yesterday she had some lower back pain , but this seems to have resolved. She denies any specific joint pain, swelling , or erythema. I spoke with Dr. Snider who states that when he saw the patient in the wound clinic on Monday, there was noted to be fragmentation of the bone, which was debrided, and he is concerned that the patient has developed an acute infection in her foot, which is likely the source of her bacteremia. The patient lives at home with her . She does not work outside the home. She does have 2 small dogs at home. She denies any recent travel. She smokes about half pack cigarettes per day. She denies any alcohol or illicit drug use. CC: Ida Daniel MD Past Med Surg Social Fam HX - Past Medical History Attestation: Yes The following information was validated with the patient. Source: patient, old records reviewed, nursing notes reviewed Medical history: diabetes, GERD, hypertension Psychiatric history: depression - Past Surgical History Surgical History: hysterectomy, other (Right foot I & D, left foot great toe amputation) - Social History Smoking Status: Current every day smoker Packs per day: 0.5 Smokeless Tobacco Status: No Alcohol use: none Drug use: none Occupational status: unemployed Current living situation: Home - Independent Activity Level: Uses cane/walker Recent Out of Country Travel Within the Last 8 Weeks: No Exposure or Possible Exposure to Illness During Travel: No - Family History Sister Hx Family Endocrine Disorder: Yes (Diabetes) Grandfather Hx Family Cardiac Disorders: Yes (Coronary artery disease at age 50) Father Family Member Ethnicity: Non- Living Status: Still Living Hx Family Cardiac Disorders: Yes Hx Family Respiratory Disorders: No Hx Family Cancer: Yes Hx Family GI Disorders: No Hx Family Endocrine Disorder: Yes Hx Family Neuromuscular Disorders: No Hx Family Neurologic Disorders: No Hx Family HEENT Disorders: No Hx Family Autoimmune Disorders: No Infectious Disease-CN:Meds Atorvastatin [Lipitor] 20 mg PO QPM 06/11/15 [History] Cholecalciferol (Vitamin D3) [Vitamin D3] 10,000 unit PO WE 06/11/15 [History] Ibuprofen [Motrin] 800 mg PO TID PRN 06/11/15 [History] Insulin ASPART [NovoLOG] 0 - 12 unit SQ AD PRN 06/11/15 [History] Insulin Glargine,Hum.rec.anlog [Lantus Solostar] 35 units SQ QPM 06/11/15 [ History] Quetiapine Fumarate [Seroquel] 100 mg PO HS 06/11/15 [History] Aspirin [Lo-Dose Aspirin EC] 81 mg PO DAILY 10/10/17 [History] Lisinopril-HCTZ 20-12.5 [Prinzide 20-12.5] 1 tab PO DAILY 10/10/17 [History] Omeprazole [PriLOSEC] 40 mg PO DAILY 10/10/17 [History] Gabapentin [Neurontin] 800 mg PO TID 11/23/17 [History] Liraglutide [Victoza 2-Yunier] 1.2 mg SQ DAILY 01/09/18 [History] Lactobacillus [Culturelle] 1 each PO DAILY #14 cap.sprink 01/13/18 [Rx] FLUoxetine HCl [Prozac] 40 mg PO QAM 02/15/18 [History] 3 Allergy/AdvReac Type Severity Reaction Status Date / Time Penicillins Allergy Swelling Verified 11/23/17 12:37 of Lip/Tongue/Throat All systems: reviewed and no additional remarkable complaints except as stated Exam - Constitutional Vitals: Temp Pulse Resp BP Pulse Ox 98.1 F 93 14 120/81 94 02/16/18 11:02 02/16/18 11:02 02/16/18 11:02 02/16/18 11:02 02/16/18 11:02 General appearance: average body habitus, cooperative, no acute distress - Head Head exam: Present: atraumatic, normal inspection, normocephalic - Eye Eye exam: Present: EOMI, normal appearance, PERRL Pupils: Present: normal accommodation Additional comments: No subconjunctival hemorrhage noted. - ENT ENT exam: Present: mucous membranes moist - Neck Neck exam: Present: normal inspection - Respiratory Respiratory exam: Present: CTAB. Absent: rales, respiratory distress, rhonchi, wheezes - Cardiovascular Cardiovascular exam: Present: RRR, +S1, +S2 - GI/Abdominal GI/Abdominal exam: Present: normal bowel sounds, soft. Absent: distended, tenderness - Extremities Exam Extremities exam: Absent: joint swelling, pedal edema, tenderness Additional comments: Right heel ulcer with wound vac dressing intact. Periwound maceration noted. No grossly purulent drainage. No surrounding erythema, warmth, tenderness, or fluctuance noted. - Back Exam Back exam: Present: normal inspection. Absent: paraspinal tenderness, vertebral tenderness - Neurological Exam Neurological exam: Present: alert, oriented X3, no focal deficits - Psychiatric Psychiatric exam: Present: normal affect, normal mood - Skin Skin exam: Present: dry, intact, normal color, warm Additional comments: No endocarditis stigmata noted. Infectious Disease CN: Results - Labs CBC & Chem 7: 02/16/18 04:45 02/16/18 04:45 Serology: Serology 02/16/18 02/16/18 02/16/18 Range/Units 10:45 06:48 04:45 WBC (4.3-11.1) K/mcL RBC (3.82-4.97) M/mcL Hgb (11.5-15.4) g/dL Hct (35.3-44.9) % MCV (83.0-100.0) fL MCH (28.0-33.3) pg MCHC (31.6-35.5) g/dL RDW (11.5-14.5) % Plt Count (140-400) K/mcL MPV (9.4-12.4) fL Immature Gran % (0-4) % Seg Neutrophils % % Lymphocytes % % Monocytes % % Eosinophils % % Basophils % % Neutrophils # (1.6-8.9) K/mcL Lymphocytes # (0.6-4.6) K/mcL Monocytes # (0.0-1.3) K/mcL Eosinophils # (0.0-0.6) K/mcL Basophils # (0.0-0.2) K/mcL Sodium 135 L (136-145) mEq/L Potassium 4.0 (3.5-5.1) mEq/L Chloride 100 (98-107) mEq/L Carbon Dioxide 28 (23-29) mEq/L BUN 35 H (6-20) mg/dL Creatinine 1.24 H (0.60-1.20) mg/dL Est GFR ( Amer) 56 L (> 60) Est GFR (Non-Af Amer) 46 L (> 60) BUN/Creatinine Ratio 28 H (6-26) Glucose 88 (70-105) mg/dL POC Glucose 169 H 112 H (70-99) mg/dL Calculated Osmolality 287 (280-300) Calcium 9.0 (8.6-10.3) mg/dL 02/16/18 02/16/18 02/15/18 Range/Units 04:45 01:18 20:45 WBC 8.5 (4.3-11.1) K/mcL RBC 2.91 L (3.82-4.97) M/mcL Hgb 8.2 L (11.5-15.4) g/dL Hct 26.5 L (35.3-44.9) % MCV 91.1 (83.0-100.0) fL MCH 28.2 (28.0-33.3) pg MCHC 30.9 L (31.6-35.5) g/dL RDW 14.6 H (11.5-14.5) % Plt Count 482 H (140-400) K/mcL MPV 9.3 L (9.4-12.4) fL Immature Gran % 0.2 (0-4) % Seg Neutrophils % 64.0 % Lymphocytes % 25.5 % Monocytes % 7.1 % Eosinophils % 2.7 % Basophils % 0.5 % Neutrophils # 5.4 (1.6-8.9) K/mcL Lymphocytes # 2.2 (0.6-4.6) K/mcL Monocytes # 0.6 (0.0-1.3) K/mcL Eosinophils # 0.2 (0.0-0.6) K/mcL Basophils # 0.0 (0.0-0.2) K/mcL Sodium (136-145) mEq/L Potassium (3.5-5.1) mEq/L Chloride (98-107) mEq/L Carbon Dioxide (23-29) mEq/L BUN (6-20) mg/dL Creatinine (0.60-1.20) mg/dL Est GFR ( Amer) (> 60) Est GFR (Non-Af Amer) (> 60) BUN/Creatinine Ratio (6-26) Glucose (70-105) mg/dL POC Glucose 101 H 85 (70-99) mg/dL Calculated Osmolality (280-300) Calcium (8.6-10.3) mg/dL Consult Discharge Plan - Plan Referrals: Alejandro Le DO [Primary Care Provider] - - Attending Attestation I examined this patient and my medical decision-making was reviewed with the Resident Physician. I agree with the documented findings, disposition and treatment plan as described except to the extent set forth below. This is an addendum to original report dictated by Danielle Ovalle CNP. Please refer to Ron note for full detail. Patient is a 47-year-old woman who is well-known to our service who was recently admitted to [place] with MRSA bacteremia. Exact source of the bacteremia was not clear and there was concern of osteomyelitis of the calcaneus but patient was evaluated by podiatry and they did not think there is any osteomyelitis. Patient was discharged home where she had 2 weeks worth of IV antibiotics. One week after antibiotics was stopped patient started feeling bad again with fevers weakness nausea and just not feeling well. Repeat cultures were obtained and grew MRSA. Patient was called and asked to come to the hospital for evaluation. Since admission patient states that she feels somewhat better. Review of systems otherwise unremarkable. Physical exam is negative for endocarditis stigmata. No heart murmur no conjunctival hemorrhage. 10 diabetic foot ulcer has a wound VAC on. At this point patient has MRSA bacteremia likely secondary to osteomyelitis of the foot on the right. Patient scheduled to get surgery for aggressive debridement. In the meantime blood cultures were repeated, they continue to be negative and PICC line will be placed on Monday and patient will continue vancomycin. Likely duration is 6 weeks depending on the clinical picture and Intra-Op findings. In the meantime monitor labs and for drug toxicity. Goal vancomycin trough around 15.
--- NOTE | 2018-02-16 13:49 | Podiatry Consult Note ---
Date of Encounter: 02/16/18 Time of Encounter: 12:00 Assessment and Plan (1) Osteomyelitis Current visit: Yes Status: Chronic Assessment: Ling stage 3 non healing surgical wound of the lateral aspect right heel Plan: Patient was admitted for IV antibiotics ID on board and managing, patient has MRSA positive blood cultures Continue to monitor labs and vitals Patient has scheduled ELYSE and invasive lines will be held until blood cultures are negative. Removed home wound vac at bedside today, rinsed with sterile saline, wet to dry re-applied at this time Nurse to obtain wound vac supplies- reapply wound vac to wound at this time- white non adherent sponge to bone, black simplace to cover, track to side of leg as to not create more pressure to wound- 150mmHg cont suction. Accurate drainage documentation to speak with patient this evening about surgical options including aggressive debridement of wound, partial or total calcectomy or BKA. This has previously been discussed in wound care center with patient- will discuss this afternoon and make decision for plan If surgery is decided on, patient will be NPO after midnight Plan for meeting around 5oclock this evening. Qualifiers: Osteomyelitis type: subacute Osteomyelitis location: foot Laterality: right Qualified Code(s): M86.271 - Subacute osteomyelitis, right ankle and foot History of Present Illness HPI: Ms. Larson is a 47 year old female with a past medical history of hypertension, hyperlipidemia, and uncontrolled diabetes. The patient was admitted to the hospital 02/15/18 for bacteremia and osteomyelitis. We are consulted for surgical consultation for right heel wound. Patient is known to podiatry, patient has been undergoing treatment for a non healing surgical ulceration of the right heel since September of 2017. The patient had undergone a right great toe graft placement back in July. Post- op she developed a right heel ulcer due to offloading the toe wound. Patient was admitted sp ID evaluation for positive MRSA positive blood cultures Upon arrival to the ER, the patient was tachycardic and had a low-grade fever. Patient states she had not felt well for 3-4 days prior to admission. Describes general malaise with unconrolled glucose. Patient denies any fevers or chills since admission. also saw patient in clinic prior to admission at which time bone exposure and surrounding erythema was noted Patient was admitted for IV antibiotics and surgical treatment of right heel ulceration Upon arrival to bedside patient is awake alert and oriented, denies any pain at this time. Patient has a home wound vac to wound, intact and running without complication. There is 50cc serosang/darkbloody drainage noted to cancarli. Past Med Surg Social Fam HX - Past Medical History Medical history: diabetes, GERD, hypertension Psychiatric history: depression - Past Surgical History Surgical History: hysterectomy, other (Right foot I & D, left foot great toe amputation) - Social History Smoking Status: Current every day smoker Packs per day: 0.5 Smokeless Tobacco Status: No Alcohol use: none Drug use: none - Family History Sister Hx Family Endocrine Disorder: Yes (Diabetes) Grandfather Hx Family Cardiac Disorders: Yes (Coronary artery disease at age 50) Father Family Member Ethnicity: Non- Living Status: Still Living Hx Family Cardiac Disorders: Yes Hx Family Respiratory Disorders: No Hx Family Cancer: Yes Hx Family GI Disorders: No Hx Family Endocrine Disorder: Yes Hx Family Neuromuscular Disorders: No Hx Family Neurologic Disorders: No Hx Family HEENT Disorders: No Hx Family Autoimmune Disorders: No Medications and Allergies Atorvastatin [Lipitor] 20 mg PO QPM 06/11/15 [History] Cholecalciferol (Vitamin D3) [Vitamin D3] 10,000 unit PO WE 06/11/15 [History] Ibuprofen [Motrin] 800 mg PO TID PRN 06/11/15 [History] Insulin ASPART [NovoLOG] 0 - 12 unit SQ AD PRN 06/11/15 [History] Insulin Glargine,Hum.rec.anlog [Lantus Solostar] 35 units SQ QPM 06/11/15 [ History] Quetiapine Fumarate [Seroquel] 100 mg PO HS 06/11/15 [History] Aspirin [Lo-Dose Aspirin EC] 81 mg PO DAILY 10/10/17 [History] Lisinopril-HCTZ 20-12.5 [Prinzide 20-12.5] 1 tab PO DAILY 10/10/17 [History] Omeprazole [PriLOSEC] 40 mg PO DAILY 10/10/17 [History] Gabapentin [Neurontin] 800 mg PO TID 11/23/17 [History] Liraglutide [Victoza 2-Yunier] 1.2 mg SQ DAILY 01/09/18 [History] Lactobacillus [Culturelle] 1 each PO DAILY #14 cap.sprink 01/13/18 [Rx] FLUoxetine HCl [Prozac] 40 mg PO QAM 02/15/18 [History] 3 Allergy/AdvReac Type Severity Reaction Status Date / Time Penicillins Allergy Swelling Verified 11/23/17 12:37 of Lip/Tongue/Throat All Systems Reviewed: Per HPI Physical Exam - Constitutional Vitals: Temp Pulse Resp BP Pulse Ox 98.1 F 93 14 120/81 94 02/16/18 11:02 02/16/18 11:02 02/16/18 11:02 02/16/18 11:02 02/16/18 11:02 General appearance: average body habitus, cooperative, no acute distress Exam: General Examination: CONSTITUTIONAL: Alert, oriented, in no acute distress, non-toxic. EXTREMITIES: CFT 3 seconds all toes. Edema +1 and pedal pulses palpable. SKIN: Large full thickness ulceration to lateral aspect of right heel measuring [id number] with exposure of bone to entire bed to ulceration. Scant serosang drainage. no fibrous connective tissue noted. Maceration is noted to wound parameters. Mild surrounding edema and erythema noted. no ascending cellulitis. Mild warmth. No odor. no fluctuance. No sinus tracts or tunneling. No other ulcerations or skin lesions noted. NEUROLOGIC: Minimal sensation to moderate touch. No sensation to light. Results - Labs Result Diagrams: 02/20/18 09:56 02/20/18 09:56 Labs: Abnormal lab results RBC 2.91 M/mcL (3.82-4.97) L 02/16/18 04:45 Hgb 8.2 g/dL (11.5-15.4) L 02/16/18 04:45 Hct 26.5 % (35.3-44.9) L 02/16/18 04:45 MCHC 30.9 g/dL (31.6-35.5) L 02/16/18 04:45 RDW 14.6 % (11.5-14.5) H 02/16/18 04:45 Plt Count 482 K/mcL (140-400) H 02/16/18 04:45 MPV 9.3 fL (9.4-12.4) L 02/16/18 04:45 PT 12.7 Seconds (9.4-12.1) H 02/15/18 13:07 Sodium 135 mEq/L (136-145) L 02/16/18 04:45 BUN 35 mg/dL (6-20) H 02/16/18 04:45 Creatinine 1.24 mg/dL (0.60-1.20) H 02/16/18 04:45 Est GFR ( Amer) 56 (> 60) L 02/16/18 04:45 Est GFR (Non-Af Amer) 46 (> 60) L 02/16/18 04:45 BUN/Creatinine Ratio 28 (6-26) H 02/16/18 04:45 POC Glucose 169 mg/dL (70-99) H 02/16/18 10:45 H & H 02/16/18 Range/Units 04:45 Hgb 8.2 L (11.5-15.4) g/dL Hct 26.5 L (35.3-44.9) % All other labs normal. Consult Discharge Plan - Plan Referrals: Alejandro Le DO [Primary Care Provider] -
[2018-02-16] MEDS: Nicotine 14 MG PATCH.TD24 TD PRN (14:35)
--- NOTE | 2018-02-16 17:40 | Internal Med Progress Note ---
Date of Encounter: 02/16/18 Time of Encounter: 12:30 - Assessment and plan (1) MRSA bacteremia Current Visit: Yes Status: Acute Assessment and plan: Blood cultures drawn from infectious diseases office on February 14 grow staph aureus, possibly MRSA. Repeat blood cultures from February 16 are pending. Infectious diseases is consulted, continue IV vancomycin. Check transthoracic echocardiogram. Patient was originally diagnosed with right foot osteomyelitis in September 2017 after which she was discharged home with 6 weeks of IV antibiotics. She was readmitted in December 2017 and noted to have MRSA bacteremia, had negative transthoracic and transesophageal echocardiogram, was discharged home on 2 weeks of IV antibiotics. Her antibiotics were recently stopped by [facility] consultant , and she began to have subjective fevers and chills, hence blood cultures were again drawn on February 14. (2) Sepsis Current Visit: Yes Status: Acute Assessment and plan: Patient presented with low-grade fever, tachycardia, mild leukocytosis with gram -positive bacteremia. Follow-up repeat cultures and continue IV antibiotics. Qualifiers: Sepsis type: sepsis due to unspecified organism Qualified Code(s): A41.9 - Sepsis, unspecified organism (3) Osteomyelitis Current Visit: Yes Status: Chronic Assessment and plan: Patient is noted to have chronic right foot osteomyelitis with nonhealing surgical wound on right heel, has been getting dressing changes along with wound VAC management at home. Podiatry has been consulted, will follow-up recommendations. Qualifiers: Osteomyelitis type: other Osteomyelitis location: foot Laterality: right Qualified Code(s): M86.8X7 - Other osteomyelitis, ankle and foot (4) Diabetes mellitus Current Visit: Yes Status: Chronic Assessment and plan: Blood sugars noted to be well controlled. Continue Accu-Chek blood glucose monitoring with basal bolus insulin regimen. Diabetic diet. 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 insulin use: with termite treater use Diabetes mellitus complication status: with skin complications Diabetes mellitus complication detail: with foot ulcer Qualified Code(s): E11.621 - Type 2 diabetes mellitus with foot ulcer; L97.509 - Non-pressure chronic ulcer of other part of unspecified foot with unspecified severity; L97.509 - Non-pressure chronic ulcer of other part of unspecified foot with unspecified severity; L97.509 - Non-pressure chronic ulcer of other part of unspecified foot with unspecified severity; L97.509 - Non-pressure chronic ulcer of other part of unspecified foot with unspecified severity; Z79.4 - terminal system operator (current) use of insulin; Z79.4 - correction (current) use of insulin; Z79.4 - correction (current) use of insulin; Z79.4 - terminal system operator (current ) use of insulin (5) HTN (hypertension) Current Visit: Yes Status: Chronic Assessment and plan: Blood pressure well controlled. Continue to hold AICHA inhibitor and diuretic due to renal dysfunction. Qualifiers: Hypertension type: essential hypertension Qualified Code(s): I10 - Essential (primary) hypertension (6) Anemia Current Visit: Yes Status: Chronic Assessment and plan: Chronic. Patient not symptomatic. No active bleeding. Continue to monitor. Qualifiers: Anemia type: unspecified type Qualified Code(s): D64.9 - Anemia, unspecified (7) Acute kidney injury Current Visit: Yes Status: Acute Assessment and plan: Age and is noted to have multiple episodes of rise in serum creatinine with intermittent normal values. Continue to hold diuretic and AICHA inhibitor at this time, monitor serum creatinine closely. Avoid new nephrotoxic agents. Monitor vancomycin levels closely. (8) Hyperlipidemia Current Visit: Yes Status: Chronic Qualifiers: Hyperlipidemia type: unspecified Qualified Code(s): E78.5 - Hyperlipidemia , unspecified (9) DVT prophylaxis Current Visit: Yes Status: Acute Assessment and plan: continue subcutaneous heparin. - Time Spent With Patient Total time spent is greater than 50% in coordination of care (as documented) at patient's floor/unit and/or counseling patient: - Subjective Interval history: Reports generalized weakness; improved fever, chills; no chest pain, dyspnea; no nausea, vomiting; - Constitutional Vitals: Temp Pulse Resp BP Pulse Ox 97.8 F 100 16 134/77 94 02/16/18 16:59 02/16/18 16:59 02/16/18 16:59 02/16/18 16:59 02/16/18 16:59 General appearance: Present: A&O X 3, answers questions appropriately - Respiratory Respiratory exam: Present: CTAB. Absent: accessory muscle use, rales, rhonchi, wheezes - Cardiovascular Cardiovascular exam: Present: RRR, +S1, +S2. Absent: diastolic murmur, gallop, rubs, systolic murmur - GI/Abdominal GI/Abdominal exam: Present: normal bowel sounds, soft, no peritoneal signs. Absent: distended, tenderness - Extremities Exam Extremities exam: Present: warm, radial pulses palpable and symmetrical. Absent : calf tenderness, cyanotic, pedal edema Additional comments: right foot in dressing and wound vac intact - Neurological Exam Neurological exam: Present: CN II-XII intact, oriented X3, no focal deficits. Absent: pronater drift, facial droop, speech deficit Internal Medicine: Result - Labs CBC & Chem 7: 02/17/18 03:28 02/17/18 03:28 Labs: Short CBC 02/16/18 Range/Units 04:45 WBC 8.5 (4.3-11.1) K/mcL Hgb 8.2 L (11.5-15.4) g/dL Hct 26.5 L (35.3-44.9) % Plt Count 482 H (140-400) K/mcL Neutrophils # 5.4 (1.6-8.9) K/mcL BMP 02/16/18 04:45 Sodium 135 L Potassium 4.0 Chloride 100 Carbon Dioxide 28 BUN 35 H Creatinine 1.24 H Glucose 88 Calcium 9.0 - ABG Interpretation ABG results: PT/INR, D-dimer PT 12.7 Seconds (9.4-12.1) H 02/15/18 13:07 Consult Discharge Plan - Plan Referrals: Alejandro Le DO [Primary Care Provider] -
[2018-02-16] MEDS: Insulin DETEMIR 100 UNIT/ML X5UNITS SQ SCH (18:56)
[2018-02-17 03:46] LABS: Basophils % 0.4 %; Eosinophils # 0.3 K/mcL (0.0-0.6); Eosinophils % 3.4 %; Hematocrit 27.4 % (35.3-44.9); Hemoglobin 8.6 g/dL (11.5-15.4); Immature Granulocytes % 0.3 % (0-4); Lymphocytes # 1.9 K/mcL (0.6-4.6); Lymphocytes % 20.4 %; Mean Corpuscular HGB Conc 31.4 g/dL (31.6-35.5); Mean Corpuscular Hemoglobin 28.6 pg (28.0-33.3); Mean Platelet Volume 9.2 fL (9.4-12.4); Monocytes # 0.5 K/mcL (0.0-1.3); Monocytes % 5.9 %; Neutrophils # 6.4 K/mcL (1.6-8.9); Platelet Count 471 K/mcL (140-400); Red Blood Count 3.01 M/mcL (3.82-4.97); Red Cell Distribution Width 14.6 % (11.5-14.5); Segmented Neutrophils % 69.6 %
[2018-02-17 03:59] LABS: BUN/Creatinine Ratio 29 (6-26); Blood Urea Nitrogen 32 mg/dL (6-20); Carbon Dioxide 27 mEq/L (23-29); Chloride 105 mEq/L (98-107); Glucose 135 mg/dL (70-105); Osmolality,Calculated 297 (280-300); Potassium 4.1 mEq/L (3.5-5.1); Sodium 139 mEq/L (136-145); eGFR For African Americans > 60 (> 60); eGFR For Non-African Americans 52 (> 60)
[2018-02-17] MEDS: Insulin LISPRO 300 UNITS/3 ML VIAL SQ SCH ×3 (05:41→17:32)
[2018-02-17] MEDS: *HR* Heparin 5,000 UNIT/ML VIAL SQ SCH ×3 (05:41→20:25)
[2018-02-17] MEDS: Nicotine 14 MG PATCH.TD24 TD PRN (05:47)
[2018-02-17] MEDS: Acetaminophen 325 MG TABLET PO PRN ×2 (05:47→17:42)
[2018-02-17] MEDS: Lactobacillus 1 EACH CAP.SPRINK PO SCH (07:42)
[2018-02-17] MEDS: Gabapentin 400 MG CAPSULE PO SCH ×3 (07:42→20:25)
[2018-02-17] MEDS: FLUoxetine 20 MG CAPSULE PO SCH (07:42)
[2018-02-17] MEDS: Aspirin Enteric Coated 81 MG Tablet PO SCH (07:42)
[2018-02-17] MEDS: Cholecalciferol (D-3) 1,000 UNIT TABLET PO SCH (07:43)
--- NOTE | 2018-02-17 16:53 | Internal Med Progress Note ---
Date of Encounter: 02/17/18 Time of Encounter: 12:30 - Assessment and plan (1) MRSA bacteremia Current Visit: Yes Status: Acute Assessment and plan: Blood cultures drawn from infectious diseases office on February 14 grow staph aureus, possibly MRSA. Repeat blood cultures from February 16 are pending. Infectious diseases is consulted, continue IV vancomycin. F/up transthoracic echocardiogram. Patient was originally diagnosed with right foot osteomyelitis in September 2017 after which she was discharged home with 6 weeks of IV antibiotics. She was readmitted in December 2017 and noted to have MRSA bacteremia, had negative transthoracic and transesophageal echocardiogram, was discharged home on 2 weeks of IV antibiotics. (2) Sepsis Current Visit: Yes Status: Acute Assessment and plan: Patient presented with low-grade fever, tachycardia, mild leukocytosis with gram -positive bacteremia. Follow-up repeat cultures and continue IV antibiotics. Leukocytosis improved; Qualifiers: Sepsis type: sepsis due to unspecified organism Qualified Code(s): A41.9 - Sepsis, unspecified organism (3) Osteomyelitis Current Visit: Yes Status: Chronic Assessment and plan: Patient is noted to have chronic right foot osteomyelitis with nonhealing surgical wound on right heel, has been getting dressing changes along with wound VAC management at home. Podiatry is on board, wound vac replaced yesterday; per patient, she is scheduled for OR on Monday for drainage, debridement and primary closure of right foot ulcer, with possible wound vac placement; continue pain control and supportive care; Qualifiers: Osteomyelitis type: other Osteomyelitis location: foot Laterality: right Qualified Code(s): M86.8X7 - Other osteomyelitis, ankle and foot (4) Diabetes mellitus Current Visit: Yes Status: Chronic Assessment and plan: Blood sugars noted to be well controlled. Continue Accu-Chek blood glucose monitoring with basal bolus insulin regimen. Diabetic diet. 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 insulin use: with chcf use Diabetes mellitus complication status: with skin complications Diabetes mellitus complication detail: with foot ulcer Qualified Code(s): E11.621 - Type 2 diabetes mellitus with foot ulcer; L97.509 - Non-pressure chronic ulcer of other part of unspecified foot with unspecified severity; L97.509 - Non-pressure chronic ulcer of other part of unspecified foot with unspecified severity; L97.509 - Non-pressure chronic ulcer of other part of unspecified foot with unspecified severity; L97.509 - Non-pressure chronic ulcer of other part of unspecified foot with unspecified severity; Z79.4 - alf (current) use of insulin; Z79.4 - alf (current) use of insulin; Z79.4 - alf (current) use of insulin; Z79.4 - alf (current ) use of insulin (5) HTN (hypertension) Current Visit: Yes Status: Chronic Qualifiers: Hypertension type: essential hypertension Qualified Code(s): I10 - Essential (primary) hypertension (6) Anemia Current Visit: Yes Status: Chronic Qualifiers: Anemia type: unspecified type Qualified Code(s): D64.9 - Anemia, unspecified (7) Acute kidney injury Current Visit: Yes Status: Acute Assessment and plan: Patient is noted to have multiple episodes of rise in serum creatinine with intermittent normal values. Serum creatinine improving, 1.12 today. Continue to hold diuretic and AICHA inhibitor at this time, monitor serum creatinine closely. Avoid new nephrotoxic agents. Monitor vancomycin levels closely. (8) Hyperlipidemia Current Visit: Yes Status: Chronic Qualifiers: Hyperlipidemia type: unspecified Qualified Code(s): E78.5 - Hyperlipidemia , unspecified (9) DVT prophylaxis Current Visit: Yes Status: Acute - Time Spent With Patient Total time spent is greater than 50% in coordination of care (as documented) at patient's floor/unit and/or counseling patient: - Subjective Interval history: Feels better; no fever/chills, nausea/vomiting, shortness of breath, chest pain; - Constitutional Vitals: Temp Pulse Resp BP Pulse Ox 97.9 F 94 16 150/79 94 02/17/18 15:33 02/17/18 15:33 02/17/18 15:33 02/17/18 15:33 02/17/18 15:33 General appearance: Present: A&O X 3, answers questions appropriately - Respiratory Respiratory exam: Present: CTAB. Absent: accessory muscle use, rales, rhonchi, wheezes - Cardiovascular Cardiovascular exam: Present: RRR, +S1, +S2. Absent: diastolic murmur, gallop, rubs, systolic murmur - GI/Abdominal GI/Abdominal exam: Present: normal bowel sounds, soft, no peritoneal signs. Absent: distended, tenderness - Extremities Exam Extremities exam: Present: warm, radial pulses palpable and symmetrical. Absent : calf tenderness, cyanotic, pedal edema Additional comments: left foot in surgical dressing and wound vac Internal Medicine: Result - Labs CBC & Chem 7: 02/17/18 03:28 02/17/18 03:28 Labs: Short CBC 02/17/18 Range/Units 03:28 WBC 9.2 (4.3-11.1) K/mcL Hgb 8.6 L (11.5-15.4) g/dL Hct 27.4 L (35.3-44.9) % Plt Count 471 H (140-400) K/mcL Neutrophils # 6.4 (1.6-8.9) K/mcL BMP 02/16/18 02/17/18 04:45 03:28 Sodium 135 L 139 Potassium 4.0 4.1 Chloride 100 105 Carbon Dioxide 28 27 BUN 35 H 32 H Creatinine 1.24 H 1.12 Glucose 88 135 H Calcium 9.0 9.0 - ABG Interpretation ABG results: PT/INR, D-dimer PT 12.7 Seconds (9.4-12.1) H 02/15/18 13:07 - Impressions Impressions Echocardiogram 02/17/18 17:41 Impressions: LVEF 60-65%. Normal LV chamber size, wall thickness and function. Mild left ventricular diastolic dysfunction. Normal right ventricular structure and function. No evidence of pulmonary hypertension. No significant valvular dysfunction. No vegetations visualized. Repeat study or consider ELYSE as indicated. Left Ventricular Wall Motion: Rest Echo Findings All wall segments showed normal motion. Findings: Study Quality * Technically adequate exam. ECG Findings * Normal sinus rhythm. Left Ventricle * LVEF 60-65%. * Normal LV chamber size, wall thickness and function. * Mild left ventricular diastolic dysfunction. Right Ventricle * Normal right ventricular structure and function. Left Atrium * Mildly dilated left atrium. Right Atrium * Mildly dilated right atrium. Interatrial Septum * No evidence of PFO by color Doppler. Aortic Valve * Trileaflet aortic valve with normal function. * No aortic regurgitation. * No aortic stenosis. Mitral Valve * Normal mitral valve structure and function. * No mitral stenosis. * No mitral regurgitation. Tricuspid Valve * Normal tricuspid valve structure and function. * Trace tricuspid regurgitation. * No evidence of pulmonary hypertension. Pulmonic Valve * Pulmonic valve is not well visualized. * No pulmonic regurgitation. Aorta * Normally sized aortic root. Pericardium * The pericardium appears normal. IVC * Normal IVC dimensions and inspiratory collapse. Pulmonary Artery * Normal visualized portions of the main pulmonary artery. Consult Discharge Plan - Plan Referrals: Alejandro Le DO [Primary Care Provider] -
[2018-02-17] MEDS: Insulin DETEMIR 100 UNIT/ML X5UNITS SQ SCH (17:38)
[2018-02-18] MEDS: Insulin LISPRO 300 UNITS/3 ML VIAL SQ SCH ×5 (00:19→23:50)
[2018-02-18 02:56] LABS: BUN/Creatinine Ratio 27 (6-26); Blood Urea Nitrogen 29 mg/dL (6-20); Calcium 8.6 mg/dL (8.6-10.3); Carbon Dioxide 28 mEq/L (23-29); Chloride 106 mEq/L (98-107); Glucose 61 mg/dL (70-105); Osmolality,Calculated 290 (280-300); Potassium 4.1 mEq/L (3.5-5.1); Sodium 138 mEq/L (136-145); eGFR For African Americans > 60 (> 60); eGFR For Non-African Americans 54 (> 60)
[2018-02-18] MEDS: *HR* Heparin 5,000 UNIT/ML VIAL SQ SCH ×3 (05:53→23:50)
[2018-02-18] MEDS: Acetaminophen 325 MG TABLET PO PRN (05:53)
[2018-02-18] MEDS: Nicotine 14 MG PATCH.TD24 TD PRN (06:04)
[2018-02-18] MEDS: Aspirin Enteric Coated 81 MG Tablet PO SCH (09:10)
[2018-02-18] MEDS: Cholecalciferol (D-3) 1,000 UNIT TABLET PO SCH (09:10)
[2018-02-18] MEDS: FLUoxetine 20 MG CAPSULE PO SCH (09:10)
[2018-02-18] MEDS: Gabapentin 400 MG CAPSULE PO SCH ×3 (09:10→20:15)
[2018-02-18] MEDS: Lactobacillus 1 EACH CAP.SPRINK PO SCH (09:10)
[2018-02-18 13:08] LABS: BUN/Creatinine Ratio 25 (6-26); Blood Urea Nitrogen 25 mg/dL (6-20); eGFR For African Americans > 60 (> 60); eGFR For Non-African Americans 58 (> 60)
--- NOTE | 2018-02-18 16:25 | Internal Med Progress Note ---
Date of Encounter: 02/18/18 Time of Encounter: 12:20 - Assessment and plan (1) MRSA bacteremia Current Visit: Yes Status: Acute Assessment and plan: Blood cultures drawn from infectious diseases office on February 14 grow staph aureus, possibly MRSA. Repeat blood cultures from February 16 are pending. Infectious diseases is on board, continue IV vancomycin. F/up transthoracic echocardiogram. Patient was originally diagnosed with right foot osteomyelitis in September 2017 after which she was discharged home with 6 weeks of IV antibiotics. She was readmitted in December 2017 and noted to have MRSA bacteremia, had negative transthoracic and transesophageal echocardiogram, was discharged home on 2 weeks of IV antibiotics. (2) Sepsis Current Visit: Yes Status: Acute Assessment and plan: Patient presented with low-grade fever, tachycardia, mild leukocytosis with gram -positive bacteremia. Follow-up repeat cultures and continue IV antibiotics. Leukocytosis improved; Qualifiers: Sepsis type: sepsis due to unspecified organism Qualified Code(s): A41.9 - Sepsis, unspecified organism (3) Osteomyelitis Current Visit: Yes Status: Chronic Assessment and plan: Patient is noted to have chronic right foot osteomyelitis with nonhealing surgical wound on right heel, has been getting dressing changes along with wound VAC management at home. 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 Diabetes mellitus complication status: with skin complications Diabetes mellitus complication detail: with foot ulcer Qualified Code(s): E11.621 - Type 2 diabetes mellitus with foot ulcer; L97.509 - Non-pressure chronic ulcer of other part of unspecified foot with unspecified severity; L97.509 - Non-pressure chronic ulcer of other part of unspecified foot with unspecified severity; L97.509 - Non-pressure chronic ulcer of other part of unspecified foot with unspecified severity; L97.509 - Non-pressure chronic ulcer of other part of unspecified foot with unspecified severity; 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.4 - watermaster (current) use of insulin; Z79.4 - [facility] (current) use of insulin; Z79.4 - watermaster (current) use of insulin; Z79.4 - [facility] (current ) use of insulin (5) HTN (hypertension) Current Visit: Yes Status: Chronic Qualifiers: Hypertension type: essential hypertension Qualified Code(s): I10 - Essential (primary) hypertension (6) Anemia Current Visit: Yes Status: Chronic Qualifiers: Anemia type: unspecified type Qualified Code(s): D64.9 - Anemia, unspecified (7) Acute kidney injury Current Visit: Yes Status: Acute Assessment and plan: Patient is noted to have multiple episodes of rise in serum creatinine with intermittent normal values. Serum creatinine improving, 1.08 today. Continue to hold diuretic and AICHA inhibitor at this time, monitor serum creatinine closely. Avoid new nephrotoxic agents. Monitor vancomycin levels closely. (8) Hyperlipidemia Current Visit: Yes Status: Chronic Qualifiers: Hyperlipidemia type: unspecified Qualified Code(s): E78.5 - Hyperlipidemia , unspecified (9) DVT prophylaxis Current Visit: Yes Status: Acute - Time Spent With Patient Total time spent is greater than 50% in coordination of care (as documented) at patient's floor/unit and/or counseling patient: - Subjective Interval history: Denies fever, chills, chest pain, shortness of breath, cough; - Constitutional Vitals: Temp Pulse Resp BP Pulse Ox 98.5 F 87 16 148/86 98 02/18/18 14:51 02/18/18 14:51 02/18/18 14:51 02/18/18 14:51 02/18/18 14:51 General appearance: Present: A&O X 3, answers questions appropriately - Respiratory Respiratory exam: Present: CTAB. Absent: accessory muscle use, rales, rhonchi, wheezes - Cardiovascular Cardiovascular exam: Present: RRR, +S1, +S2. Absent: diastolic murmur, gallop, rubs, systolic murmur - GI/Abdominal GI/Abdominal exam: Present: normal bowel sounds, soft, no peritoneal signs. Absent: distended, tenderness - Extremities Exam Extremities exam: Present: full ROM, warm, radial pulses palpable and symmetrical. Absent: calf tenderness, cyanotic, pedal edema - Neurological Exam Neurological exam: Present: CN II-XII intact, oriented X3, no focal deficits. Absent: pronater drift, facial droop, speech deficit Internal Medicine: Result - Labs CBC & Chem 7: 02/17/18 03:28 02/18/18 12:29 Labs: BMP 02/18/18 02/18/18 02:20 12:29 Sodium 138 Potassium 4.1 Chloride 106 Carbon Dioxide 28 BUN 29 H 25 H Creatinine 1.08 1.02 Glucose 61 L Calcium 8.6 - ABG Interpretation ABG results: PT/INR, D-dimer PT 12.7 Seconds (9.4-12.1) H 02/15/18 13:07 Consult Discharge Plan - Plan Referrals: Alejandro Le DO [Primary Care Provider] -
[2018-02-18] MEDS ORDERED: Insulin DETEMIR 100 UNIT/ML X5UNITS SQ SCH (18:00)
--- NOTE | 2018-02-18 23:34 | Podiatry Progress Note ---
Date of Encounter: 02/18/18 Time of Encounter: 13:32 - Assessment and Plan (1) Osteomyelitis Current Visit: Yes Status: Chronic The wound VAC was removed at bedside. A new dressing was applied after the site was appropriately cleansed. The patient will be going for surgery tomorrow. The patient will be placed nothing by mouth. Qualifiers: Osteomyelitis type: other Osteomyelitis location: foot Laterality: right Qualified Code(s): M86.8X7 - Other osteomyelitis, ankle and foot Subjective Principal diagnosis: heel ulcer Interval history: Patient relates that overall she is doing well. Patient relates that the wound VAC on her heel has been waking up side and that it does not appear to be suctioning very well. Patient relates that she understands that she is going for surgery tomorrow in attempts to salvage her foot. Objective - Vital Signs Vital Signs: Vital Signs Temp Pulse Resp BP Pulse Ox 02/18/18 19:59 99.0 F 85 16 138/84 91 02/18/18 14:51 98.5 F 87 16 148/86 98 02/18/18 11:48 98.2 F 84 16 152/81 02/18/18 08:00 97.8 F 85 14 146/81 94 Intake and Output 02/18/18 02/18/18 02/18/18 07:59 15:59 23:59 Intake Total 480 / 480 Output Total 25 / 25 300 / 300 Balance -25 / -25 180 / 180 Intake: Oral 480 / 480 Output: Urine 300 / 300 Wound Drainage 25 / 25 Right Heel 25 / 25 Other: Meal Lunch Percent of Meal Consumed 50% # Voids 2 1 Blood Glucose* 167 312 165 - Exam Exam: Wound VAC has noted drainage coming out the side which appears to be a serous/ mildly purulent type drainage. The wound VAC was removed in its entirety and the wound was exposed. No significant infection was noted, no abscesses just a chronic osteomyelitis that had been occurring. Capillary fill time intact. Sensation decreased consistent with peripheral neuropathy. There are no new open lesions, abrasions, or ulcerations. - Lab Result Diagrams: 02/17/18 03:28 02/18/18 12:29 Labs: Abnormal lab results RBC 3.01 M/mcL (3.82-4.97) L 02/17/18 03:28 Hgb 8.6 g/dL (11.5-15.4) L 02/17/18 03:28 Hct 27.4 % (35.3-44.9) L 02/17/18 03:28 MCHC 31.4 g/dL (31.6-35.5) L 02/17/18 03:28 RDW 14.6 % (11.5-14.5) H 02/17/18 03:28 Plt Count 471 K/mcL (140-400) H 02/17/18 03:28 MPV 9.2 fL (9.4-12.4) L 02/17/18 03:28 ESR 82 mm/hr (0-15) H 02/17/18 03:28 PT 12.7 Seconds (9.4-12.1) H 02/15/18 13:07 BUN 25 mg/dL (6-20) H 02/18/18 12:29 Est GFR (Non-Af Amer) 58 (> 60) L 02/18/18 12:29 Glucose 61 mg/dL (70-105) L 02/18/18 02:20 POC Glucose 132 mg/dL (70-99) H 02/18/18 00:06 C-Reactive Protein 168 mg/L (Less than 10) H 02/16/18 04:45 Vancomycin Trough 12 mcg/mL (5-10) H 02/18/18 17:09 Consult Discharge Plan - Plan Referrals: Alejandro Le DO [Primary Care Provider] -
[2018-02-19] MEDS: *HR* Heparin 5,000 UNIT/ML VIAL SQ SCH ×2 (05:31→21:40)
[2018-02-19] MEDS: Insulin LISPRO 300 UNITS/3 ML VIAL SQ SCH ×2 (06:35→16:47)
[2018-02-19] MEDS: FLUoxetine 20 MG CAPSULE PO SCH (09:08)
[2018-02-19] MEDS: Gabapentin 400 MG CAPSULE PO SCH ×2 (11:08→21:40)
[2018-02-19] MEDS: Aspirin Enteric Coated 81 MG Tablet PO SCH (11:08)
[2018-02-19] MEDS: Cholecalciferol (D-3) 1,000 UNIT TABLET PO SCH (11:08)
[2018-02-19] MEDS: Lactobacillus 1 EACH CAP.SPRINK PO SCH (11:08)
--- NOTE | 2018-02-19 12:28 | Anesthesia Evaluation PreOp ---
Date of Encounter: 02/19/18 Time of Encounter: 13:04 - Past History Planned Operation: Right subtotal calcanealectomy Cardiac History: HTN, Hyperlipidemia Pulmonary History: Smoker (1ppd, has not smoked for 4 days) Other Medical History: Renal (ROGER), Diabetes Type II (peripheral neuropathy), GERD, Other (MRSA bactremia, Anemia) Anesthesia History: No Prior Anesthetic Complications, Past Anesthesia (Hyst, Appy, back jose, foot jose) : No Alcohol Use: none Drug use: none Medications and Allergies Atorvastatin [Lipitor] 20 mg PO QPM 06/11/15 [History] Cholecalciferol (Vitamin D3) [Vitamin D3] 10,000 unit PO WE 06/11/15 [History] Ibuprofen [Motrin] 800 mg PO TID PRN 06/11/15 [History] Insulin ASPART [NovoLOG] 0 - 12 unit SQ AD PRN 06/11/15 [History] Insulin Glargine,Hum.rec.anlog [Lantus Solostar] 35 units SQ QPM 06/11/15 [ History] Quetiapine Fumarate [Seroquel] 100 mg PO HS 06/11/15 [History] Aspirin [Lo-Dose Aspirin EC] 81 mg PO DAILY 10/10/17 [History] Lisinopril-HCTZ 20-12.5 [Prinzide 20-12.5] 1 tab PO DAILY 10/10/17 [History] Omeprazole [PriLOSEC] 40 mg PO DAILY 10/10/17 [History] Gabapentin [Neurontin] 800 mg PO TID 11/23/17 [History] Liraglutide [Victoza 2-Yunier] 1.2 mg SQ DAILY 01/09/18 [History] Lactobacillus [Culturelle] 1 each PO DAILY #14 cap.sprink 01/13/18 [Rx] FLUoxetine HCl [Prozac] 40 mg PO QAM 02/15/18 [History] 3 Allergy/AdvReac Type Severity Reaction Status Date / Time Penicillins Allergy Swelling Verified 11/23/17 12:37 of Lip/Tongue/Throat - Meds/Allergy Pre-op Review Medications Reviewed: Yes Allergies Reviewed: Yes Beta Blockers on Current Med List: No Anesthesia Results - Labs 02/17/18 03:28 02/18/18 12:29 - Imaging Additional studies: TTE 02/17/2018: LVEF 60-65%. Normal LV chamber size, wall thickness and function. Mild left ventricular diastolic dysfunction. Normal right ventricular structure and function. No evidence of pulmonary hypertension. No significant valvular dysfunction. No vegetations visualized. Repeat study or consider ELYSE as indicated. Anesthesia Exam Vital Signs/O2 Sat/Glucose, Most Recent Temp Pulse Resp BP Pulse Ox 98.4 F 81 18 112/73 94 02/19/18 07:20 02/19/18 07:20 02/19/18 07:20 02/19/18 07:20 02/19/18 07:20 Blood Glucose* 77 Height: 1.65m Weight: 87kg - BMI 32 NPO (# of Hours): >8 - HEENT Pupil (Motor): Pupils equal Mallampati: II Teeth: Missing - Cardiac Rhythm: Regular - Pulmonary Breath Sounds: bilateral Clear Anesthesia Assess/Plan ASA Score: 3 Modified Portillo Scale for Level of Consciousness: Cooperative, oriented, and tranquil Anesthetic Plan: General, MAC Monitoring Plan: Standard Monitors Recovery Plan: PACU Anes Supervising Prov Stmt: Patient informed and consented. Risks, benefits, and alternatives discussed. Patient wishes to proceed.
[2018-02-19] MEDS ORDERED: Propofol 500 MG/50 ML INFUS..BTL ONE (13:23)
[2018-02-19] MEDS ORDERED: *HR* FentaNYL (PF) 100 MCG/2 ML VIAL ONE (13:23)
[2018-02-19] MEDS ORDERED: *HR* Midazolam HCl 2 MG/2 ML VIAL ONE (13:23)
[2018-02-19] MEDS ORDERED: Lidocaine -MPF 2% 2 ML VIAL ONE (13:23)
[2018-02-19] MEDS ORDERED: Water for inj. (sterile) 10 ML IV ONE (13:45)
[2018-02-19] MEDS ORDERED: Vancomycin 1,000 MG VIAL ONE (13:45)
[2018-02-19] MEDS ORDERED: Bupivacaine/Clonidine Syringe 1 EACH SYRINGE ONE (13:49)
[2018-02-19] MEDS ORDERED: *HR* Succinylcholine 200 MG/10 ML VIAL IVP ONE (13:49)
--- NOTE | 2018-02-19 13:49 | Podiatry Progress Note ---
Date of Encounter: 02/19/18 Time of Encounter: 13:47 - Assessment and Plan (1) Osteomyelitis Current Visit: Yes Status: Chronic Assessment: #1 acute and chronic osteomyelitis right calcaneus as nidus of infection of her bacteremia #2 present antibiotic therapy appropriate 3 recommendation of debridement subtotal calcanectomy Plan: #1 long discussion ensued about the risks versus benefits as well as alternatives to surgical intervention took place on Monday of this past week and again in the holding room today. Risks include but are not limited to loss of foot or leg life DVT blood clots and failure procedure to produce desired results further surgery. Patient ample opportunity ask questions about planned procedure as well as anesthesia employed. Those questions are answered to her satisfaction. She then signed the consent form no distress or coercion was not premedicated by me prior to signing consent form. We will proceed to the operating room. Qualifiers: Osteomyelitis type: subacute Osteomyelitis location: foot Laterality: right Qualified Code(s): M86.271 - Subacute osteomyelitis, right ankle and foot Subjective Principal diagnosis: heel ulcer Interval history: Long history of osteomyelitis with recurrent episodes of bacteremia with positive blood cultures, MRSA. Because of the concern for the possibility of long-term IV antibiotics and acute and chronic renal disease debridement of the infected bone is necessitated.. She has had no history of chest pain nausea vomiting fever or chills. Objective - Vital Signs Vital Signs: Vital Signs Temp Pulse Resp BP Pulse Ox 02/19/18 12:35 98.1 F 85 16 143/85 93 02/19/18 07:20 98.4 F 81 18 112/73 94 02/18/18 23:33 98.9 F 90 16 132/79 92 02/18/18 19:59 99.0 F 85 16 138/84 91 02/18/18 14:51 98.5 F 87 16 148/86 98 Intake and Output 02/18/18 02/19/18 02/19/18 23:59 07:59 15:59 Intake Total 250 / 250 Balance 250 / 250 Intake: IV Fluids 250 / 250 Vancocin 1,000 MG In 0.9 % 250 / 250 Sodium Chloride 250 ML @ 167 mls/hr IVPB Q12H [facility] Rx#: [id number] Other: Percent of Meal Consumed 0% Blood Glucose* 121 77 - Exam Exam: Large defect with exposure of bone plantar aspect right calcaneus measuring 5 cm x 5 cm with exposure of the plantar aspect of the calcaneus - Radiology X-Rays: image reviewed CTs: image reviewed - Lab Result Diagrams: 02/17/18 03:28 02/18/18 12:29 Labs: Abnormal lab results RBC 3.01 M/mcL (3.82-4.97) L 02/17/18 03:28 Hgb 8.6 g/dL (11.5-15.4) L 02/17/18 03:28 Hct 27.4 % (35.3-44.9) L 02/17/18 03:28 MCHC 31.4 g/dL (31.6-35.5) L 02/17/18 03:28 RDW 14.6 % (11.5-14.5) H 02/17/18 03:28 Plt Count 471 K/mcL (140-400) H 02/17/18 03:28 MPV 9.2 fL (9.4-12.4) L 02/17/18 03:28 ESR 82 mm/hr (0-15) H 02/17/18 03:28 PT 12.7 Seconds (9.4-12.1) H 02/15/18 13:07 BUN 25 mg/dL (6-20) H 02/18/18 12:29 Est GFR (Non-Af Amer) 58 (> 60) L 02/18/18 12:29 Glucose 61 mg/dL (70-105) L 02/18/18 02:20 POC Glucose 104 mg/dL (70-99) H 02/19/18 12:26 C-Reactive Protein 168 mg/L (Less than 10) H 02/16/18 04:45 Vancomycin Trough 12 mcg/mL (5-10) H 02/18/18 17:09 Microbiology, Last 48 Hours 02/16/18 14:40 Wound Culture - Final Right Foot No pathogens isolated. Consult Discharge Plan - Plan Referrals: Alejandro Le DO [Primary Care Provider] -
[2018-02-19] MEDS ORDERED: Dexamethasone 4 MG/ML VIAL ONE (13:55)
[2018-02-19] MEDS ORDERED: Ondansetron 4 MG/2 ML VIAL ONE (13:55)
[2018-02-19] MEDS ORDERED: Lidocaine -MPF 4% 5 ML AMPUL ONE (14:36)
[2018-02-19] MEDS ORDERED: *HR* Propofol 200 MG/20 ML VIAL IVP ONE ×3 (15:06→15:39)
--- NOTE | 2018-02-19 16:27 | Anesthesia Evaluation Post Op ---
Date of Encounter: 02/19/18 Time of Encounter: 16:25 Notes: Patient's vital signs have been reviewed. Patient is stable postoperatively and has adequately recovered from anesthesia. Patient is determined to have stable airway patency and respiratory function including respiratory rate and oxygen saturation. Patient has a stable heart rate, blood pressure and adequate hydration. Patients mental status is acceptable. Patients temperature is appropriate. Pain and nausea are adequately controlled. - Discharge PostOp Status: Transfer Patient to floor
[2018-02-19] MEDS ORDERED: Naloxone 0.4 MG/ML INJ IVP PRN (16:40)
[2018-02-19] MEDS ORDERED: Dextrose Gel 15 GM/37.5 ML TUBE PO PRN ×2 (16:40)
[2018-02-19] MEDS ORDERED: D5% in Water 1,000 ML IVC PRN (16:40)
[2018-02-19] MEDS ORDERED: *HR* Dextrose 50 % in Water (Syg) 50 ML SYRINGE IVP PRN (16:40)
--- NOTE | 2018-02-19 16:50 | Internal Med Progress Note ---
Date of Encounter: 02/19/18 Time of Encounter: 12:30 - Assessment and plan (1) MRSA bacteremia Current Visit: Yes Status: Acute Assessment and plan: Blood cultures drawn from infectious diseases office on February 14 grow staph aureus, possibly MRSA. Repeat blood cultures from February 16 are pending. Infectious diseases is on board, continue IV vancomycin. transthoracic echocardiogram shows no evidence of valvular vegetations. Patient was originally diagnosed with right foot osteomyelitis in September 2017 after which she was discharged home with 6 weeks of IV antibiotics. She was readmitted in December 2017 and noted to have MRSA bacteremia, had negative transthoracic and transesophageal echocardiogram, was discharged home on 2 weeks of IV antibiotics. (2) Sepsis Current Visit: Yes Status: Acute Assessment and plan: Patient presented with low-grade fever, tachycardia, mild leukocytosis with gram -positive bacteremia. Follow-up repeat cultures and continue IV antibiotics. Leukocytosis improved; Qualifiers: Sepsis type: sepsis due to unspecified organism Qualified Code(s): A41.9 - Sepsis, unspecified organism (3) Osteomyelitis Current Visit: Yes Status: Chronic Assessment and plan: Patient is noted to have chronic right foot osteomyelitis with nonhealing surgical wound on right heel, has been getting dressing changes along with wound VAC management at home. Podiatry is on board, wound vac currently removed ; scheduled for OR today for drainage, debridement and primary closure of right foot ulcer, with possible wound vac placement; continue pain control and supportive care; Qualifiers: Osteomyelitis type: subacute Osteomyelitis location: foot Laterality: right Qualified Code(s): M86.271 - Subacute osteomyelitis, right ankle and foot (4) Diabetes mellitus Current Visit: Yes Status: Chronic Assessment and plan: Blood sugars noted to be well controlled. Fasting blood sugars noted to be low , decrease bedtime basal insulin. Continue Accu-Chek blood glucose monitoring with basal bolus insulin regimen. Diabetic diet. 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 Diabetes mellitus complication status: with skin complications Diabetes mellitus complication detail: with foot ulcer Qualified Code(s): E11.621 - Type 2 diabetes mellitus with foot ulcer; L97.509 - Non-pressure chronic ulcer of other part of unspecified foot with unspecified severity; L97.509 - Non-pressure chronic ulcer of other part of unspecified foot with unspecified severity; L97.509 - Non-pressure chronic ulcer of other part of unspecified foot with unspecified severity; L97.509 - Non-pressure chronic ulcer of other part of unspecified foot with unspecified severity; 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; 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; Z79.4 - jail (current) use of insulin; Z79.4 - intermediate accountant (current ) use of insulin (5) HTN (hypertension) Current Visit: Yes Status: Chronic Qualifiers: Hypertension type: essential hypertension Qualified Code(s): I10 - Essential (primary) hypertension (6) Anemia Current Visit: Yes Status: Chronic Qualifiers: Anemia type: unspecified type Qualified Code(s): D64.9 - Anemia, unspecified (7) Acute kidney injury Current Visit: Yes Status: Acute Assessment and plan: Patient is noted to have multiple episodes of rise in serum creatinine with intermittent normal values. Serum creatinine improving; Continue to hold diuretic and AICHA inhibitor at this time, monitor serum creatinine closely. Avoid new nephrotoxic agents. Monitor vancomycin levels closely. (8) Hyperlipidemia Current Visit: Yes Status: Chronic Qualifiers: Hyperlipidemia type: unspecified Qualified Code(s): E78.5 - Hyperlipidemia , unspecified (9) DVT prophylaxis Current Visit: Yes Status: Acute - Time Spent With Patient Total time spent is greater than 50% in coordination of care (as documented) at patient's floor/unit and/or counseling patient: - Subjective Interval history: Denies fever, chills, chest pain, shortness of breath, cough; awaiting OR today; - Constitutional Vitals: Temp Pulse Resp BP Pulse Ox 98.0 F 84 12 131/81 93 02/19/18 16:46 02/19/18 16:46 02/19/18 16:46 02/19/18 16:46 02/19/18 16:46 General appearance: Present: A&O X 3, answers questions appropriately - Respiratory Respiratory exam: Present: CTAB. Absent: accessory muscle use, rales, rhonchi, wheezes - Cardiovascular Cardiovascular exam: Present: RRR, +S1, +S2. Absent: diastolic murmur, gallop, rubs, systolic murmur - GI/Abdominal GI/Abdominal exam: Present: normal bowel sounds, soft, no peritoneal signs. Absent: distended, tenderness Internal Medicine: Result - Labs CBC & Chem 7: 02/17/18 03:28 02/18/18 12:29 - ABG Interpretation ABG results: PT/INR, D-dimer PT 12.7 Seconds (9.4-12.1) H 02/15/18 13:07 Consult Discharge Plan - Plan Referrals: Alejandro Le DO [Primary Care Provider] -
[2018-02-19] MEDS: Insulin DETEMIR 100 UNIT/ML X5UNITS SQ SCH (17:44)
--- NOTE | 2018-02-19 17:46 | Infectious Disease Progress No ---
Date of Encounter: 02/19/18 Time of Encounter: 17:44 - Assessment and Plan (1) Sepsis Current Visit: Yes Status: Acute The patient had three SIRS criteria plus ROGER on admission. Likely secondary to MRSA bacteremia and right foot OM. Improved. Afebrile. Tachycardia has improved. Leukocytosis has resolved. ROGER improved. Blood cultures drawn 02/14/18 are positive 2/2 sets for MRSA. Repeat blood cultures drawn 02/15/18 are pending x 2 sets. Qualifiers: Sepsis type: sepsis due to unspecified organism Qualified Code(s): A41.9 - Sepsis, unspecified organism (2) MRSA bacteremia Current Visit: Yes Status: Acute Causative organism: MRSA. Source likely the right foot. Uncomplicated. Blood cultures drawn 02/14/18 are positive 2/2 sets for MRSA. Repeat blood cultures drawn 02/15/18 are pending x 2 sets. No endocarditis stigmata noted on exam. The patient has one major and one minor Modified Sosa's Criteria. Get TTE. May need to consider repeating ELYSE prior to discharge. Continue Vancomycin IV. Pharmacy to dose. Goal trough ~15. Duration of treatment depends on the clinical picture. She will require a prolonged course of IV antibiotics due to the osteomyelitis. Monitor renal function and for drug toxicity and dose-adjust antibiotics. Avoid insertion of central venous access until repeat blood cultures are negative x 48 hours. account services associate consult to assist with discharge planning. (3) Osteomyelitis Current Visit: Yes Status: Chronic Location: Right calcanues, right cuboid, right navicular. Causative organism unclear, but likely MRSA given the blood culture results. Secondary to non-healing foot ulcer. X-ray of the right foot completed 02/14/18 showed findings consistent with OM of the calcaneus. CT of the right foot completed 02/15/18 showed chronic OM of the calcaneus with large adjacent ulceration extending to the underlying bone, appears grossly similar o previous exam. IT also showed cortical erosive change of the calcaneocuboid articulation and adjacent inferior aspect of the navicular, also compatible with OM. No abscess or SQ gas was noted. Podiatry consulted. Discussed with Dr. Snider. Planning for surgery the first of next week. Wound care and activity restrictions per the podiatry team. Check ESR and CRP. Get wound culture with next dressing change. Continue Vancomycin IV. Pharmacy to dose. Goal trough~ 15. Duration of treatment depends on the clinical picture, but likely 6 weeks of IV antibiotics if the foot is salvageable. Monitor renal function and for drug toxicity and dose-adjust antibiotics. going to surgery today at 2, await intra op report Qualifiers: Osteomyelitis type: subacute Osteomyelitis location: foot Laterality: right Qualified Code(s): M86.271 - Subacute osteomyelitis, right ankle and foot (4) Acute kidney injury Current Visit: Yes Status: Resolved Serum creatinine 1.30 on admission. Minimally improved today. Likely secondary to sepsis. Continue to trend. Strict I's and O's. Dose-adjust antibiotics. Avoid nephrotoxins as able. (5) Diabetic foot ulcer Current Visit: No Status: Acute Qualifiers: Diabetic foot ulcer location: heel Diabetes mellitus type: type 2 Laterality: right Non-pressure ulcer stage: with fat layer exposed Qualified Code(s): E11.621 - Type 2 diabetes mellitus with foot ulcer; L97.412 - Non-pressure chronic ulcer of right heel and midfoot with fat layer exposed; L97.412 - Non-pressure chronic ulcer of right heel and midfoot with fat layer exposed; L97.412 - Non-pressure chronic ulcer of right heel and midfoot with fat layer exposed; L97.412 - Non-pressure chronic ulcer of right heel and midfoot with fat layer exposed (6) Diabetes mellitus Current Visit: Yes Status: Chronic Qualifiers: Diabetes mellitus type: type 2 Diabetes mellitus emt intermediate insulin use: with fci use Diabetes mellitus complication status: with skin complications Diabetes mellitus complication detail: with foot ulcer Qualified Code(s): E11.621 - Type 2 diabetes mellitus with foot ulcer; L97.509 - Non-pressure chronic ulcer of other part of unspecified foot with unspecified severity; L97.509 - Non-pressure chronic ulcer of other part of unspecified foot with unspecified severity; L97.509 - Non-pressure chronic ulcer of other part of unspecified foot with unspecified severity; L97.509 - Non-pressure chronic ulcer of other part of unspecified foot with unspecified severity; Z79.4 - senior care (current) use of insulin; Z79.4 - senior care (current) use of insulin; Z79.4 - long term (current) use of insulin; Z79.4 - long term (current ) use of insulin (7) HTN (hypertension) Current Visit: Yes Status: Chronic Qualifiers: Hypertension type: essential hypertension Qualified Code(s): I10 - Essential (primary) hypertension (8) Hyperlipidemia Current Visit: Yes Status: Chronic Qualifiers: Hyperlipidemia type: unspecified Qualified Code(s): E78.5 - Hyperlipidemia , unspecified (9) Peripheral neuropathy Current Visit: No Status: Chronic Qualifiers: Peripheral neuropathy type: polyneuropathy, unspecified Qualified Code(s): G62.9 - Polyneuropathy, unspecified (10) Tobacco abuse Current Visit: No Status: Chronic Infect Dis PN-Objective Data - Labs CBC & Chem 7: 02/20/18 09:56 02/20/18 09:56 Labs: Laboratory Results - last 24 hr 02/18/18 02/18/18 02/18/18 06:52 11:46 17:12 POC Glucose 167 H 312 H 165 H 02/18/18 02/18/18 02/19/18 19:56 23:36 12:26 POC Glucose 134 H 121 H 104 H 02/19/18 16:47 POC Glucose 139 H Cultures: Cultures 02/16/18 14:40 Wound Culture - Final Right Foot No pathogens isolated. - Impressions Impressions Foot X-Ray 02/19/18 16:01 IMPRESSION: Postoperative changes in the region of the calcaneus with what appear to be implanted antibiotic impregnated beads D/ / 02/19/2018 17:37:00 Konstantin Miguel MD / [facility] Interpreting Provider: Konstantin Miguel MD Exam - Constitutional Vitals: Temp Pulse Resp BP Pulse Ox 98.1 F 84 15 154/91 92 02/19/18 17:42 02/19/18 17:42 02/19/18 17:42 02/19/18 17:42 02/19/18 17:42 General appearance: no acute distress, no febrile - Eye Eye exam: Present: PERRL, sclera anicteric Additional comments: No conjunctival hemorrhage - Respiratory Respiratory exam: Present: CTAB. Absent: wheezes - Cardiovascular Cardiovascular exam: Present: RRR, +S1, +S2 - GI/Abdominal GI/Abdominal exam: Present: normal bowel sounds, soft. Absent: tenderness - Neurological Exam Neurological exam: Present: alert, oriented X3 - Skin Additional comments: No endocarditis stigmata Consult Discharge Plan - Plan Referrals: Alejandro Le DO [Primary Care Provider] -
[2018-02-19] MEDS: Nicotine 14 MG PATCH.TD24 TD PRN (17:48)
[2018-02-19] MEDS: Acetaminophen 325 MG TABLET PO PRN (21:39)
[2018-02-20] MEDS: Insulin LISPRO 300 UNITS/3 ML VIAL SQ SCH ×4 (02:08→18:13)
[2018-02-20] MEDS: *HR* Heparin 5,000 UNIT/ML VIAL SQ SCH ×3 (06:18→20:26)
[2018-02-20] MEDS: Cholecalciferol (D-3) 1,000 UNIT TABLET PO SCH (08:42)
[2018-02-20] MEDS: Aspirin Enteric Coated 81 MG Tablet PO SCH (08:42)
[2018-02-20] MEDS: Gabapentin 400 MG CAPSULE PO SCH ×3 (08:42→20:26)
[2018-02-20] MEDS: Lactobacillus 1 EACH CAP.SPRINK PO SCH (08:42)
[2018-02-20] MEDS: FLUoxetine 20 MG CAPSULE PO SCH (08:42)
[2018-02-20 10:11] LABS: Basophils % 0.3 %; Hematocrit 27.2 % (35.3-44.9); Hemoglobin 8.7 g/dL (11.5-15.4); Immature Granulocytes % 0.4 % (0-4); Lymphocytes # 1.5 K/mcL (0.6-4.6); Lymphocytes % 9.8 %; Mean Corpuscular Hemoglobin 28.9 pg (28.0-33.3); Mean Corpuscular Volume 90.4 fL (83.0-100.0); Mean Platelet Volume 8.9 fL (9.4-12.4); Monocytes # 0.8 K/mcL (0.0-1.3); Monocytes % 5.3 %; Neutrophils # 13.2 K/mcL (1.6-8.9); Platelet Count 552 K/mcL (140-400); Red Blood Count 3.01 M/mcL (3.82-4.97); Red Cell Distribution Width 14.6 % (11.5-14.5); Segmented Neutrophils % 84.2 %
[2018-02-20 10:31] LABS: BUN/Creatinine Ratio 26 (6-26); Blood Urea Nitrogen 27 mg/dL (6-20); Calcium 8.9 mg/dL (8.6-10.3); Carbon Dioxide 27 mEq/L (23-29); Chloride 106 mEq/L (98-107); Glucose 89 mg/dL (70-105); Osmolality,Calculated 291 (280-300); Potassium 4.6 mEq/L (3.5-5.1); Sodium 138 mEq/L (136-145); eGFR For African Americans > 60 (> 60); eGFR For Non-African Americans 56 (> 60)
[2018-02-20 10:36] LABS: Basophils # 0.1 K/mcL (0.0-0.2)
--- NOTE | 2018-02-20 11:59 | Infectious Disease Progress No ---
Date of Encounter: 02/20/18 Time of Encounter: 11:57 - Assessment and Plan (1) Sepsis Current Visit: Yes Status: Acute The patient had three SIRS criteria plus ROGER on admission. Likely secondary to MRSA bacteremia and right foot OM. Improved. Afebrile. Tachycardia has resolved. Post-op leukocytosis noted today. ROGER resolved. Blood cultures drawn 02/14/18 are positive 2/2 sets for MRSA. Repeat blood cultures drawn 02/15/18 are NGTD x 2 sets. Qualifiers: Sepsis type: sepsis due to unspecified organism Qualified Code(s): A41.9 - Sepsis, unspecified organism (2) MRSA bacteremia Current Visit: Yes Status: Acute Causative organism: MRSA. Source likely the right foot. Uncomplicated. Blood cultures drawn 02/14/18 are positive 2/2 sets for MRSA. Repeat blood cultures drawn 02/15/18 are NGTD x 2 sets. No endocarditis stigmata noted on exam. The patient has one major and one minor Modified Ssoa's Criteria. TTE negative for vegetations. The patient had a ELYSE during her last hospital stay. She has no endocarditis stigmata and her repeat blood cultures are negative despite not having received IV antibiotics prior to them being drawn. Will defer ELYSE for now. Continue Vancomycin IV. Pharmacy to dose. Goal trough ~15. Duration of treatment depends on the clinical picture. She will require a prolonged course of IV antibiotics due to the osteomyelitis. Monitor renal function and for drug toxicity and dose-adjust antibiotics. Okay to consult VAT for PICC line placement. student services dean consult to assist with discharge planning. (3) Osteomyelitis Current Visit: Yes Status: Chronic Location: Right calcanues, right cuboid, right navicular. Causative organism unclear, but likely MRSA given the blood culture results. Secondary to non-healing foot ulcer. X-ray of the right foot completed 02/14/18 showed findings consistent with OM of the calcaneus. CT of the right foot completed 02/15/18 showed chronic OM of the calcaneus with large adjacent ulceration extending to the underlying bone, appears grossly similar o previous exam. IT also showed cortical erosive change of the calcaneocuboid articulation and adjacent inferior aspect of the navicular, also compatible with OM. No abscess or SQ gas was noted. Podiatry consulted. Discussed with Dr. Snider. Status post calcanectomy with skin graft placement per the patient on 02/19/18. Operative note not yet available. Intra-op cultures and pathology are pending. Wound care and activity restrictions per the podiatry team. Pre-op ESR 82, CRP 168. Wound culture negative. Continue Vancomycin IV. Pharmacy to dose. Goal trough~ 15. Duration of treatment depends on the clinical picture, but likely 6 weeks of IV antibiotics. Monitor renal function and for drug toxicity and dose-adjust antibiotics. Consult VAT for PICC line placement. Qualifiers: Osteomyelitis type: subacute Osteomyelitis location: foot Laterality: right Qualified Code(s): M86.271 - Subacute osteomyelitis, right ankle and foot (4) Acute kidney injury Current Visit: Yes Status: Resolved Serum creatinine 1.30 on admission. Resolved. Likely secondary to sepsis. Continue to trend. Strict I's and O's. Dose-adjust antibiotics. Avoid nephrotoxins as able. (5) Diabetic foot ulcer Current Visit: No Status: Acute Location: Right heel. Secondary to non-healing surgical wound. Podiatry consulted and following. Wound care per the podiatry team's recommendations. Qualifiers: Diabetic foot ulcer location: heel Diabetes mellitus type: type 2 Laterality: right Non-pressure ulcer stage: with fat layer exposed Qualified Code(s): E11.621 - Type 2 diabetes mellitus with foot ulcer; L97.412 - Non-pressure chronic ulcer of right heel and midfoot with fat layer exposed; L97.412 - Non-pressure chronic ulcer of right heel and midfoot with fat layer exposed; L97.412 - Non-pressure chronic ulcer of right heel and midfoot with fat layer exposed; L97.412 - Non-pressure chronic ulcer of right heel and midfoot with fat layer exposed (6) Diabetes mellitus Current Visit: Yes Status: Chronic HgbA1C 7.9% in October. Recommend aggressive glucose monitoring and control to promote wound healing and prevent re-infection. Management per the primary team. Qualifiers: Diabetes mellitus type: type 2 Diabetes mellitus manager terminal insulin use: with nursing home use Diabetes mellitus complication status: with skin complications Diabetes mellitus complication detail: with foot ulcer Qualified Code(s): E11.621 - Type 2 diabetes mellitus with foot ulcer; L97.509 - Non-pressure chronic ulcer of other part of unspecified foot with unspecified severity; L97.509 - Non-pressure chronic ulcer of other part of unspecified foot with unspecified severity; L97.509 - Non-pressure chronic ulcer of other part of unspecified foot with unspecified severity; L97.509 - Non-pressure chronic ulcer of other part of unspecified foot with unspecified severity; Z79.4 - terminal operator (current) use of insulin; Z79.4 - terminal operator (current) use of insulin; Z79.4 - custodial (current) use of insulin; Z79.4 - terminal operator (current ) use of insulin (7) HTN (hypertension) Current Visit: Yes Status: Chronic Qualifiers: Hypertension type: essential hypertension Qualified Code(s): I10 - Essential (primary) hypertension (8) Hyperlipidemia Current Visit: Yes Status: Chronic Qualifiers: Hyperlipidemia type: unspecified Qualified Code(s): E78.5 - Hyperlipidemia , unspecified (9) Peripheral neuropathy Current Visit: No Status: Chronic Qualifiers: Peripheral neuropathy type: polyneuropathy, unspecified Qualified Code(s): G62.9 - Polyneuropathy, unspecified (10) Tobacco abuse Current Visit: No Status: Chronic The patient continues to smoke about a half a pack of cigarettes per day. Discussed the importance of smoking cessation and its effect on wound healing. - Subjective Interval history: Patient seen and examined. No acute events noted overnight. Patient sitting up on the side of the bed with her parents at the bedside. Status post calcanectomy 02/19/[address] Snider. Official operative report pending. Patient states that overall she feels better. Denies fevers, chills, or rigors. Denies chest pain, shortness of breath, or cough. Denies nausea, vomiting, or diarrhea. Denies abdominal pain, urinary complaints, or appetite changes. Reports minimal pain at the surgical site. States her blood sugars have been okay, but went up yesterday after surgery. Denies oral thrush or new skin lesions. Infect Dis PN-Objective Data - Labs CBC & Chem 7: 02/20/18 09:56 02/20/18 09:56 Labs: Laboratory Results - last 24 hr 02/18/18 02/19/18 02/19/18 06:04 05:45 12:26 WBC RBC Hgb Hct MCV MCH MCHC RDW Plt Count MPV Immature Gran % Seg Neutrophils % Lymphocytes % Monocytes % Eosinophils % Basophils % Neutrophils # Lymphocytes # Monocytes # Eosinophils # Basophils # Sodium Potassium Chloride Carbon Dioxide BUN Creatinine Est GFR ( Amer) Est GFR (Non-Af Amer) BUN/Creatinine Ratio Glucose POC Glucose 57 L 77 104 H Calculated Osmolality Calcium Vancomycin Trough 02/19/18 02/20/18 02/20/18 16:47 05:05 09:56 WBC 15.7 H D RBC 3.01 L Hgb 8.7 L Hct 27.2 L MCV 90.4 MCH 28.9 MCHC 32.0 RDW 14.6 H Plt Count 552 H MPV 8.9 L Immature Gran % 0.4 Seg Neutrophils % 84.2 Lymphocytes % 9.8 Monocytes % 5.3 Eosinophils % 0.0 Basophils % 0.3 Neutrophils # 13.2 H Lymphocytes # 1.5 Monocytes # 0.8 Eosinophils # 0.0 Basophils # 0.1 Sodium Potassium Chloride Carbon Dioxide BUN Creatinine Est GFR ( Amer) Est GFR (Non-Af Amer) BUN/Creatinine Ratio Glucose POC Glucose 139 H Calculated Osmolality Calcium Vancomycin Trough 23 H 02/20/18 09:56 WBC RBC Hgb Hct MCV MCH MCHC RDW Plt Count MPV Immature Gran % Seg Neutrophils % Lymphocytes % Monocytes % Eosinophils % Basophils % Neutrophils # Lymphocytes # Monocytes # Eosinophils # Basophils # Sodium 138 Potassium 4.6 Chloride 106 Carbon Dioxide 27 BUN 27 H Creatinine 1.05 Est GFR ( Amer) > 60 Est GFR (Non-Af Amer) 56 L BUN/Creatinine Ratio 26 Glucose 89 POC Glucose Calculated Osmolality 291 Calcium 8.9 Vancomycin Trough Cultures: Cultures 02/18/18 12:29 Blood Culture - Preliminary Peripheral Venipuncture No growth. 02/18/18 12:29 Blood Culture - Preliminary Peripheral Venipuncture No growth. 02/16/18 14:40 Wound Culture - Final Right Foot No pathogens isolated. - Impressions Impressions Foot X-Ray 02/19/18 16:01 IMPRESSION: Postoperative changes in the region of the calcaneus with what appear to be implanted antibiotic impregnated beads D/ / 02/19/2018 17:37:00 Konstantin Miguel MD / [facility] Interpreting Provider: Konstantin Miguel MD Exam - Constitutional Vitals: Temp Pulse Resp BP Pulse Ox 97.8 F 87 16 137/81 95 04/24/18 11:19 02/20/18 11:19 02/20/18 11:19 02/20/18 11:19 02/20/18 11:19 General appearance: average body habitus, cooperative, no acute distress - Head Head exam: Present: atraumatic, normal inspection, normocephalic - Eye Eye exam: Present: EOMI, normal appearance, PERRL Pupils: Present: normal accommodation Additional comments: No subconjunctival hemorrhage noted. - ENT ENT exam: Present: mucous membranes moist - Neck Neck exam: Present: normal inspection - Respiratory Respiratory exam: Present: CTAB. Absent: rales, respiratory distress, rhonchi, wheezes - Cardiovascular Cardiovascular exam: Present: RRR, +S1, +S2 - GI/Abdominal GI/Abdominal exam: Present: normal bowel sounds, soft. Absent: distended, tenderness - Extremities Exam Extremities exam: Present: pedal edema (Trace RLE). Absent: joint swelling, tenderness Additional comments: Right foot dressing C/D/I. - Back Exam Back exam: Present: normal inspection. Absent: paraspinal tenderness, vertebral tenderness - Neurological Exam Neurological exam: Present: alert, oriented X3, no focal deficits - Psychiatric Psychiatric exam: Present: normal affect, normal mood - Skin Skin exam: Present: dry, intact, normal color, warm Consult Discharge Plan - Plan Referrals: Alejandro Le DO [Primary Care Provider] - - Attending Attestation I examined this patient and my medical decision-making was reviewed with the Resident Physician. I agree with the documented findings, disposition and treatment plan as described except to the extent set forth below.
[2018-02-20] MEDS ORDERED: Lidocaine -MPF 1% 5 ML AMPUL INFILT ONE (12:22)
--- NOTE | 2018-02-20 15:15 | Internal Med Progress Note ---
Date of Encounter: 02/20/18 Time of Encounter: 11:00 - Assessment and plan (1) Osteomyelitis Current Visit: Yes Status: Chronic Assessment and plan: Patient found to have osteomyelitis and right calcaneus, right cuboid and right navicular foot Suspected organism MRSA Podiatry following Status post calcanectomy with skin graft placement per patient on 02/19/18; intra-op cultures and pathology are pending. Infectious disease following with recommendations for 6 week course of IV antibiotics as an outpatient VAT consulted for PICC line placement Continue IV vancomycin while inpatient Qualifiers: Osteomyelitis type: subacute Osteomyelitis location: foot Laterality: right Qualified Code(s): M86.271 - Subacute osteomyelitis, right ankle and foot (2) MRSA bacteremia Current Visit: Yes Status: Acute Assessment and plan: Blood cultures drawn from infectious diseases office on February 14 grow staph aureus, possibly MRSA. Repeat blood cultures were negative. Transthoracic echocardiogram showed no evidence of valvular vegetations. (3) Sepsis Current Visit: Yes Status: Acute Assessment and plan: Resolved; secondary to MRSA bacteremia due to osteomyelitis of right foot Qualifiers: Sepsis type: sepsis due to unspecified organism Qualified Code(s): A41.9 - Sepsis, unspecified organism (4) HTN (hypertension) Current Visit: Yes Status: Chronic Assessment and plan: Will restart home dose of AICHA inhibitor and diuretic due to resolution of renal dysfunction. Qualifiers: Hypertension type: essential hypertension Qualified Code(s): I10 - Essential (primary) hypertension (5) Anemia Current Visit: Yes Status: Chronic Assessment and plan: Chronic; continue to monitor. Qualifiers: Anemia type: unspecified type Qualified Code(s): D64.9 - Anemia, unspecified (6) Acute kidney injury Current Visit: Yes Status: Resolved Assessment and plan: Resolved; monitor vancomycin levels closely. (7) Diabetes mellitus Current Visit: Yes Status: Chronic Assessment and plan: Blood sugars noted to be well controlled. Due to previous low fasting blood glucose levels, will continue decreased bedtime basal insulin. Continue Accu-Chek blood glucose monitoring with basal bolus insulin regimen. Qualifiers: Diabetes mellitus type: type 2 Diabetes mellitus nursing home insulin use: with terminal superintendent use Diabetes mellitus complication status: with skin complications Diabetes mellitus complication detail: with foot ulcer Qualified Code(s): E11.621 - Type 2 diabetes mellitus with foot ulcer; L97.509 - Non-pressure chronic ulcer of other part of unspecified foot with unspecified severity; L97.509 - Non-pressure chronic ulcer of other part of unspecified foot with unspecified severity; L97.509 - Non-pressure chronic ulcer of other part of unspecified foot with unspecified severity; L97.509 - Non-pressure chronic ulcer of other part of unspecified foot with unspecified severity; Z79.4 - truck terminal manager (current) use of insulin; Z79.4 - nursing home (current) use of insulin; Z79.4 - truck terminal manager (current) use of insulin; Z79.4 - nursing home (current ) use of insulin (8) Hyperlipidemia Current Visit: Yes Status: Chronic Assessment and plan: Continue statin Qualifiers: Hyperlipidemia type: unspecified Qualified Code(s): E78.5 - Hyperlipidemia , unspecified (9) DVT prophylaxis Current Visit: Yes Status: Acute Assessment and plan: Subcutaneous heparin. - Time Spent With Patient Total time spent is greater than 50% in coordination of care (as documented) at patient's floor/unit and/or counseling patient: - Subjective Interval history: Patient with no issues or complaints this morning and anxious to go home Blood cultures have been negative and thus infectious disease recommendations for PICC line for long-term IV antibiotics use as an outpatient Patient does have a slight elevation in her white count on IV vancomycin - Constitutional Vitals: Temp Pulse Resp BP Pulse Ox 97.8 F 87 16 137/81 95 02/20/18 11:19 02/20/18 11:19 02/20/18 11:19 02/20/18 11:19 02/20/18 11:19 General appearance: Present: A&O X 3, answers questions appropriately - Respiratory Respiratory exam: Present: CTAB. Absent: accessory muscle use, rales, rhonchi, wheezes - Cardiovascular Cardiovascular exam: Present: RRR, +S1, +S2. Absent: diastolic murmur, gallop, rubs, systolic murmur Internal Medicine: Result - Labs CBC & Chem 7: 02/20/18 09:56 02/20/18 09:56 Labs: Short CBC 02/20/18 Range/Units 09:56 WBC 15.7 H D (4.3-11.1) K/mcL Hgb 8.7 L (11.5-15.4) g/dL Hct 27.2 L (35.3-44.9) % Plt Count 552 H (140-400) K/mcL Neutrophils # 13.2 H (1.6-8.9) K/mcL BMP 02/20/18 09:56 Sodium 138 Potassium 4.6 Chloride 106 Carbon Dioxide 27 BUN 27 H Creatinine 1.05 Glucose 89 Calcium 8.9 - ABG Interpretation ABG results: PT/INR, D-dimer PT 12.7 Seconds (9.4-12.1) H 02/15/18 13:07 - Impressions Impressions Foot X-Ray 02/19/18 16:01 IMPRESSION: Postoperative changes in the region of the calcaneus with what appear to be implanted antibiotic impregnated beads D/ / 02/19/2018 17:37:00 Konstantin Miguel MD / [facility] Interpreting Provider: Konstantin Miguel MD Consult Discharge Plan - Plan Referrals: Alejandro Le DO [Primary Care Provider] -
--- NOTE | 2018-02-20 16:36 | Podiatry Progress Note ---
Date of Encounter: 02/20/18 Time of Encounter: 12:00 - Assessment and Plan (1) Osteomyelitis Current Visit: Yes Status: Chronic Assessment: Ling stage 3 non healing surgical wound of the lateral aspect right heel Plan: Status post calcanectomy with skin graft placement per the patient on 02/19/18. Operative note not yet available. Intra-op cultures and pathology are pending. ID on board and managing antibiotics Will have picc placement and have been recommended 6 weeks of IV antibiotic therapy per ID Spoke with Amelia CANDELARIA, patient came in with home vac, settings or location of vac have no changed, states she does not believe a new order is needed, if found otherwise will fax paperwork to have vac at home. Wound vac changes MWF- white simplace sponge covering any bone, black simplace covering, 150mmhg suction, drape skin for protection, track vac to side of leg Patient is protective weight bearing to forefoot only Will need post op shoe if one already not at bedside. Qualifiers: Osteomyelitis type: subacute Osteomyelitis location: foot Laterality: right Qualified Code(s): M86.271 - Subacute osteomyelitis, right ankle and foot Subjective Principal diagnosis: heel ulcer Interval history: Patient is Status post calcanectomy with skin graft placement per the patient on 02/19/18 per . Operative note not yet available. Intra-op cultures and pathology are pending. Patient resting comfortably Wound vac intact and running without issue. 50ml bloody drainage noted to canister. Patient states she is feeling much better today States she is awaiting PICC placement Afebrile Denies any chills, n/v or flu like symptoms Denies any calf pain or sob. WBC elevated today likely related to post surgical surge. Objective - Vital Signs Vital Signs: Vital Signs Temp Pulse Resp BP Pulse Ox 02/20/18 15:17 97.7 F 95 16 154/81 92 02/20/18 11:19 97.8 F 87 16 137/81 95 02/20/18 07:25 98.3 F 81 16 127/72 95 02/20/18 03:18 98.1 F 88 16 152/84 95 02/19/18 22:58 98.3 F 91 14 154/83 94 02/19/18 19:45 98.1 F 76 16 145/88 96 02/19/18 18:40 98.3 F 89 15 137/83 96 02/19/18 17:42 98.1 F 84 15 154/91 92 02/19/18 17:11 98.2 F 81 14 143/84 94 02/19/18 16:46 98.0 F 84 12 131/81 93 02/19/18 16:35 98.7 F 80 16 142/87 93 Intake and Output 02/20/18 02/20/18 02/20/18 07:59 15:59 23:59 Intake Total 0 / 0 240 / 240 Output Total 0 / 0 100 / 100 Balance 0 / 0 140 / 140 Intake: Oral 0 / 0 240 / 240 Output: Urine 0 / 0 Wound Drainage 100 / 100 Right Heel 100 / 100 Other: Meal Lunch Percent of Meal Consumed 100% # Voids 1 Blood Glucose* 276 139 - Exam Exam: Podiatry General Exam: General appearance: alert awake oriented X 3. Calm and pleasant, no acute distress.. Vascular: Pedal pulses +2/4 DP/PT , No evidence of cyanosis, pallor or rubor, Edema graded at 1+/4, Skin Temperature warm, No calf pain with manual compression. capillary refill time is immediate to digits. Neurologic: Sensation intact with moderate touch to foot. . Postop Exam: Status post calcanectomy with skin graft placement per the patient on 02/19/18. Will leave wound vac intact at this time. 50ml bloody drainage noted to canister. Intact and running without issue. No surrounding edema or erythema. No warmth noted. - Lab Result Diagrams: 02/20/18 09:56 02/20/18 09:56 Labs: Abnormal lab results WBC 15.7 K/mcL (4.3-11.1) H D 02/20/18 09:56 RBC 3.01 M/mcL (3.82-4.97) L 02/20/18 09:56 Hgb 8.7 g/dL (11.5-15.4) L 02/20/18 09:56 Hct 27.2 % (35.3-44.9) L 02/20/18 09:56 RDW 14.6 % (11.5-14.5) H 02/20/18 09:56 Plt Count 552 K/mcL (140-400) H 02/20/18 09:56 MPV 8.9 fL (9.4-12.4) L 02/20/18 09:56 Neutrophils # 13.2 K/mcL (1.6-8.9) H 02/20/18 09:56 ESR 82 mm/hr (0-15) H 02/17/18 03:28 PT 12.7 Seconds (9.4-12.1) H 02/15/18 13:07 BUN 27 mg/dL (6-20) H 02/20/18 09:56 Est GFR (Non-Af Amer) 56 (> 60) L 02/20/18 09:56 POC Glucose 139 mg/dL (70-99) H 02/20/18 11:21 C-Reactive Protein 168 mg/L (Less than 10) H 02/16/18 04:45 Vancomycin Trough 23 mcg/mL (5-10) H 02/20/18 05:05 Microbiology, Last 48 Hours 02/18/18 12:29 Blood Culture - Preliminary Peripheral Venipuncture No growth. 02/18/18 12:29 Blood Culture - Preliminary Peripheral Venipuncture No growth. 02/16/18 14:40 Wound Culture - Final Right Foot No pathogens isolated. Consult Discharge Plan - Plan Referrals: Alejandro Le DO [Primary Care Provider] -
[2018-02-20] MEDS: Nicotine 14 MG PATCH.TD24 TD PRN (18:12)
[2018-02-20] MEDS: Insulin DETEMIR 100 UNIT/ML X5UNITS SQ SCH (18:13)
[2018-02-20] MEDS: Acetaminophen 325 MG TABLET PO PRN ×2 (18:31→22:50)
--- NOTE | 2018-02-20 21:06 | Orthopedic Operative Note ---
Date of procedure: 02/19/18 Pre-op diagnosis: #1 Osteomyelitis calcaneus. 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) Procedure: 02/21/18 09:26 #1: Incision of bone cortex for acute and chronic osteomyelitis calcaneus/ subtotal calcanectomy #2 adjacent tissue transfer with fasciocutaneous flap #3 primary repair of Achilles tendon #4 application of skin substitute/graft jacket with wound VAC #5 use of PRP Implants: #1 graft jacket 2 #2 Childs calcium sulfate beads impregnated with vancomycin Complications: None Anesthesia: GETA Surgeon: Oliver nSider Was there an therapy assistant present: No Estimated blood loss (cc): 20 Tourniquet Time (Minutes): 45 Specimen: Calcaneus Condition: stable Disposition: PACU Procedure in Detail: 02/21/18 09:28 Details in summary of procedure: The patient was brought to the surgical suite. A sign in procedure was performed. Patient then underwent smooth induction and general endotracheal anesthesia was achieved without difficulty . Complete roll cast padding was placed above the knee at the mid thigh of the right leg followed by an application of a thigh tourniquet. The patient was then transferred the surgical table and placed in a prone position. And positioned properly safely securely. Right foot was then elevated on a foam block. Right foot and ankle were protected as well as the left. The right foot and ankle were then prepped and draped in usual sterile manner. Surgical timeout was taken. The wound was inspected on the plantar aspect of her right calcaneus found to be 6.0 cm in length and 6.0 cm in width 2.4 cm in depth. Calcaneus was exposed. At that juncture a standard incision was begun on the medial aspect of the Achilles tendon approximately 8 cm above the insertion and brought distally to the 12 o'clock position of the ulceration and then circumferentially about the ulceration meeting at the 4 o'clock position and then the incision was extended for another 4 cm. The ulcer was excised in toto , down to the periosteum. Dissection was then continued from proximal to distal as the incision was deepened just adjacent to the extent Achilles tendon down to the deep fascia. The Achilles tendon was then mobilized by dissecting at the level of the superficial fascia laterally exposing the tendon avoiding injury to the sural nerve. The distal portion of the Achilles tendon was found to be irregular and ragged. A clean edge was then achieved by resecting the most distal portion of the tendon cleanly with a #15 blade and a ribbon retractor. It was then reflected proximally. At that point the level of periosteum on the superior posterior aspect of calcaneus fasciocutaneous flap was raised at the level of the periosteum of the calcaneus just inferior to the posterior facet of the subtalar joint and brought distally medially and laterally. These flaps were then retracted adequately with Army-Villanueva retractors exposing the infected bone. The calcaneus was found to be of abnormal color texture density. At that point using a command power saw at the superior posterior aspect calcaneus and osteotomy was then completed from proximal to distal performing a subtotal calcanectomy. The peroneal tendons were protected with Army-Villanueva retractor laterally. The medial and lateral edges of the calcaneus were remodeled and rounded using a bone rongeur and hand rasp. Remaining bone was of normal color texture density. Was flushed with copious amounts sterile saline. Satisfied we a complete resection of all obvious compromised bone the Achilles tendon was then reattached and repaired to the superior posterior aspect the calcaneus and the deep fascia with 2-0 Vicryl. Modified [place] stitch was performed as well as a [id number]. Satisfied we had appropriate reattaching the Achilles tendon the medial fasciocutaneous flap was remodeled and debulked. The proximal portion of the cysts soft tissue/skin was remodeled and excised for proximally 4 cm to allow for tissue transfer from medial to lateral. At that point we were able to mobilize the tissue and bring the skin edges together throughout the whole incision except for the most distal plantar aspect where we discovered a 2 cm x 3 cm defect which will be addressed. At that point the fasciocutaneous flap was mobilized and sewn to the lateral flap with 2-0 Vicryl. The skin sutures were placed with 30 and 2-0 Prolene, over the most proximal portion incision overlying the Achilles tendon. At that point antibiotic beads right medical impregnated with vancomycin were placed directly into the wound on either side of the remaining calcaneus and over the body of the calcaneus. A graft jacket was then applied over the exposed bone and antibiotic beads and sewn into place with 2-0 Vicryl. The most distal portion of fasciocutaneous flap was then reanastomosed with 2-0 Vicryl covering the 6 x 6 defect to where we only had a remaining 2 x 3 defect. The distal most portion of the incision was then reanastomosed with 30 and 2-0 Prolene. We are then left with a small defect overlying the exposed graft jacket within the wound itself. The original graft jacket all overlying the bone was fenestrated prior to placing with a #15 scalpel blade. At that point the 4 x4 fenestrated graft jacket was soaked in PRP and applied to the remaining small skin defect and stapled into place. Remaining skin sutures were placed with 3-0 Prolene and skin stapler. No complications. Thigh tourniquet was released prior to closure hemostasis was achieved using a Bovie. No complications. At no time did we discover any loculated abscess or active infection the soft tissue. The wound was then dressed with Adaptic 4 x 4's and Kerlix over the closed incision and a wound VAC was applied over the 2 cm x 2 cm skin defect/graft jacket. Patient was then extubated and sent to PACU in good condition with vital signs stable S blood blood loss was less than 20 mL. 02/21/18 10:52 02/21/18 11:18
[2018-02-21] MEDS: Insulin LISPRO 300 UNITS/3 ML VIAL SQ SCH ×4 (01:35→17:40)
[2018-02-21] MEDS: *HR* Heparin 5,000 UNIT/ML VIAL SQ SCH ×2 (06:15→14:58)
[2018-02-21] MEDS: Lactobacillus 1 EACH CAP.SPRINK PO SCH (08:08)
[2018-02-21] MEDS: Aspirin Enteric Coated 81 MG Tablet PO SCH (08:08)
[2018-02-21] MEDS: Gabapentin 400 MG CAPSULE PO SCH ×2 (08:08→14:58)
[2018-02-21] MEDS: FLUoxetine 20 MG CAPSULE PO SCH (08:09)
[2018-02-21] MEDS: Cholecalciferol (D-3) 1,000 UNIT TABLET PO SCH (08:09)
[2018-02-21] MEDS ORDERED: Lisinopril-HCTZ 20-12.5mg TABLET PO SCH (09:00)
[2018-02-21 09:01] LABS: Basophils # 0.1 K/mcL (0.0-0.2); Basophils % 0.5 %; Eosinophils # 0.3 K/mcL (0.0-0.6); Eosinophils % 2.5 %; Hematocrit 25.7 % (35.3-44.9); Hemoglobin 8.1 g/dL (11.5-15.4); Immature Granulocytes % 0.4 % (0-4); Lymphocytes # 2.8 K/mcL (0.6-4.6); Lymphocytes % 25.1 %; Mean Corpuscular HGB Conc 31.5 g/dL (31.6-35.5); Mean Corpuscular Volume 92.1 fL (83.0-100.0); Mean Platelet Volume 9.1 fL (9.4-12.4); Monocytes # 0.7 K/mcL (0.0-1.3); Monocytes % 6.1 %; Neutrophils # 7.3 K/mcL (1.6-8.9); Platelet Count 522 K/mcL (140-400); Red Blood Count 2.79 M/mcL (3.82-4.97); Red Cell Distribution Width 14.6 % (11.5-14.5); Segmented Neutrophils % 65.4 %
[2018-02-21 09:12] LABS: BUN/Creatinine Ratio 29 (6-26); Blood Urea Nitrogen 30 mg/dL (6-20); Calcium 8.9 mg/dL (8.6-10.3); Carbon Dioxide 26 mEq/L (23-29); Chloride 107 mEq/L (98-107); Glucose 94 mg/dL (70-105); Osmolality,Calculated 292 (280-300); Potassium 4.2 mEq/L (3.5-5.1); Sodium 138 mEq/L (136-145); eGFR For African Americans > 60 (> 60); eGFR For Non-African Americans 57 (> 60)
--- NOTE | 2018-02-21 14:00 | Podiatry Progress Note ---
Date of Encounter: 02/21/18 Time of Encounter: 12:00 - Assessment and Plan (1) Osteomyelitis Status: Chronic Assessment: Ling stage 3 non healing surgical wound of the lateral aspect right heel Plan: #1: Incision of bone cortex for acute and chronic osteomyelitis calcaneus/ subtotal calcanectomy #2 adjacent tissue transfer with fasciocutaneous flap #3 primary repair of Achilles tendon #4 application of skin substitute/graft jacket with wound VAC #5 use of PRP Implants: #1 graft jacket 2 #2 Childs calcium sulfate beads impregnated with vancomycin ID on board and managing antibiotics, intra op cultures pending PICC placement complete yesterday and have been recommended 6 weeks of IV antibiotic therapy per ID Wound vac removed today as bedside, cleansed wound with saline and pat dry, no wound vac supplies were brought to floor, adaptic and bulk dressing placed, spoke with nurse to replace vac as soon as supplies arrive. Verbalized understanding Wound vac changes MWF- cleanse with saline, apply adaptic to graft jacket placement, small black simplace sponge tracked to lateral aspect of leg, drape skin for protection with tegaderm, seal to 125mmHg low cont suction. Please be careful with vac changes as to not remove graft jackets Patient will need [facility] change Will need appointment with next monday Patient is protective weight bearing to forefoot only Will need post op shoe if one already not at bedside. Qualifiers: Osteomyelitis type: subacute Osteomyelitis location: foot Laterality: right Qualified Code(s): M86.271 - Subacute osteomyelitis, right ankle and foot Subjective Principal diagnosis: heel ulcer Interval history: Patient is #1: Incision of bone cortex for acute and chronic osteomyelitis calcaneus/subtotal calcanectomy #2 adjacent tissue transfer with fasciocutaneous flap #3 primary repair of Achilles tendon #4 application of skin substitute/graft jacket with wound VAC #5 use of PRP Implants: #1 graft jacket 2 #2 Childs calcium sulfate beads impregnated with vancomycin Patient resting comfortably Wound vac intact and running without issue. 100ml bloody drainage noted to canister. Patient states she is feeling much better today PICC placement yesterday to RUE Afebrile Denies any chills, n/v or flu like symptoms Denies any calf pain or sob. WBC declining Awaiting discharge Objective - Vital Signs Vital Signs: Vital Signs Temp Pulse Resp BP Pulse Ox 02/21/18 11:59 98.3 F 99 15 131/81 88 02/21/18 07:50 98.5 F 76 14 121/79 95 02/21/18 02:45 98.9 F 81 14 117/75 93 02/20/18 22:21 98.6 F 89 14 113/70 93 02/20/18 20:12 98.4 F 89 16 124/73 93 02/20/18 15:17 97.7 F 95 16 154/81 92 Intake and Output 02/20/18 02/21/18 02/21/18 23:59 07:59 15:59 Intake Total 300 / 300 0 / 0 240 / 240 Output Total 190 / 190 800 / 800 850 / 850 Balance 110 / 110 -800 / -800 -610 / -610 Intake: Oral 300 / 300 0 / 0 240 / 240 Output: Urine 0 / 0 800 / 800 650 / 650 Wound Drainage 190 / 190 200 / 200 Right Heel 190 / 190 200 / 200 Other: Meal Dinner Breakfast Percent of Meal Consumed 100% 100% Blood Glucose* 320 117 207 - Exam Exam: Podiatry General Exam: General appearance: alert awake oriented X 3. Calm and pleasant, no acute distress.. Vascular: Pedal pulses +2/4 DP/PT , No evidence of cyanosis, pallor or rubor, Edema graded at 1+/4, Skin Temperature warm, No calf pain with manual compression. capillary refill time is immediate to digits. Neurologic: Sensation intact with moderate touch to foot. . Postop Exam: Status post calcanectomy with skin graft placement per the patient on 02/19/18. Wound vac removed, wound closure noted with intact skin graft placement to the calcaneus. Skin graft supple and intact. Healthy in appearance. No drainage noted. Minimal surrounding edema or erythema. No warmth. No signs of dehiscence or ischemia. No odor. - Lab Result Diagrams: 02/21/18 08:33 02/21/18 08:33 Labs: Abnormal lab results WBC 11.2 K/mcL (4.3-11.1) H 02/21/18 08:33 RBC 2.79 M/mcL (3.82-4.97) L 02/21/18 08:33 Hgb 8.1 g/dL (11.5-15.4) L 02/21/18 08:33 Hct 25.7 % (35.3-44.9) L 02/21/18 08:33 MCHC 31.5 g/dL (31.6-35.5) L 02/21/18 08:33 RDW 14.6 % (11.5-14.5) H 02/21/18 08:33 Plt Count 522 K/mcL (140-400) H 02/21/18 08:33 MPV 9.1 fL (9.4-12.4) L 02/21/18 08:33 ESR 82 mm/hr (0-15) H 02/17/18 03:28 PT 12.7 Seconds (9.4-12.1) H 02/15/18 13:07 BUN 30 mg/dL (6-20) H 02/21/18 08:33 Est GFR (Non-Af Amer) 57 (> 60) L 02/21/18 08:33 BUN/Creatinine Ratio 29 (6-26) H 02/21/18 08:33 POC Glucose 207 mg/dL (70-99) H 02/21/18 12:02 C-Reactive Protein 168 mg/L (Less than 10) H 02/16/18 04:45 Vancomycin Trough 16 mcg/mL (5-10) H 02/20/18 16:56 Microbiology, Last 48 Hours 02/18/18 12:29 Blood Culture - Preliminary Peripheral Venipuncture No growth. 02/18/18 12:29 Blood Culture - Preliminary Peripheral Venipuncture No growth. Consult Discharge Plan - Plan Additional Instructions: Go to scheduled follow-up appt. Take medications as prescribed. Monitor wound for s/s of infection. NO weight-bearing to right foot. Referrals: Danielle Ovalle CNP [Advanced Practice Nurse] - 03/07/18 8:40 am Alejandro Le DO [Primary Care Provider] - Prescriptions: Vancomycin [Vancocin (wt based)] 1,000 mg IV Q24H #56 vial
--- NOTE | 2018-02-21 14:12 | Infectious Disease Progress No ---
Date of Encounter: 02/21/18 Time of Encounter: 14:10 - Assessment and Plan (1) Sepsis Current Visit: Yes Status: Acute The patient had three SIRS criteria plus ROGER on admission. Likely secondary to MRSA bacteremia and right foot OM. Improved. Afebrile. Tachycardia has resolved. Post-op leukocytosis improving. ROGER resolved. Blood cultures drawn 02/14/18 are positive 2/2 sets for MRSA. Repeat blood cultures drawn 02/15/18 are negative x 2 sets. Qualifiers: Sepsis type: sepsis due to unspecified organism Qualified Code(s): A41.9 - Sepsis, unspecified organism (2) MRSA bacteremia Current Visit: Yes Status: Acute Causative organism: MRSA. Source likely the right foot. Uncomplicated. Blood cultures drawn 02/14/18 are positive 2/2 sets for MRSA. Repeat blood cultures drawn 02/15/18 are negative x 2 sets. No endocarditis stigmata noted on exam. The patient has one major and one minor Modified Sosa's Criteria. TTE negative for vegetations. The patient had a ELYSE during her last hospital stay. She has no endocarditis stigmata and her repeat blood cultures are negative despite not having received IV antibiotics prior to them being drawn. Will defer ELYSE for now. Continue Vancomycin IV. Pharmacy to dose. Goal trough ~15. Duration of treatment depends on the clinical picture. She will require a prolonged course of IV antibiotics due to the osteomyelitis. Monitor renal function and for drug toxicity and dose-adjust antibiotics. Okay to consult VAT for PICC line placement. government services professional consult to assist with discharge planning. Will need weekly CBC, BUN/Cr, ESR, CRP, and Vanc trough. Will need weekly PICC care per protocol. Follow up with ID 03/07/14 at 0840. (3) Osteomyelitis Current Visit: Yes Status: Chronic Location: Right calcanues, right cuboid, right navicular. Causative organism unclear, but likely MRSA given the blood culture results. Secondary to non-healing foot ulcer. X-ray of the right foot completed 02/14/18 showed findings consistent with OM of the calcaneus. CT of the right foot completed 02/15/18 showed chronic OM of the calcaneus with large adjacent ulceration extending to the underlying bone, appears grossly similar o previous exam. IT also showed cortical erosive change of the calcaneocuboid articulation and adjacent inferior aspect of the navicular, also compatible with OM. No abscess or SQ gas was noted. Podiatry consulted. Discussed with Dr. Snider. Status post calcanectomy with skin graft placement per the patient on 02/19/18. Intra-op cultures and pathology are pending. Wound care and activity restrictions per the podiatry team. Pre-op ESR 82, CRP 168. Wound culture negative. Continue Vancomycin IV. Pharmacy to dose. Goal trough~ 15. Duration of treatment depends on the clinical picture, but likely 6 weeks of IV antibiotics. Monitor renal function and for drug toxicity and dose-adjust antibiotics. Consult VAT for PICC line placement. Qualifiers: Osteomyelitis type: subacute Osteomyelitis location: foot Laterality: right Qualified Code(s): M86.271 - Subacute osteomyelitis, right ankle and foot (4) Acute kidney injury Current Visit: Yes Status: Resolved Serum creatinine 1.30 on admission. Resolved. Likely secondary to sepsis. Continue to trend. Strict I's and O's. Dose-adjust antibiotics. Avoid nephrotoxins as able. (5) Diabetic foot ulcer Current Visit: No Status: Acute Location: Right heel. Secondary to non-healing surgical wound. Podiatry consulted and following. Wound care per the podiatry team's recommendations. Qualifiers: Diabetic foot ulcer location: heel Diabetes mellitus type: type 2 Laterality: right Non-pressure ulcer stage: with fat layer exposed Qualified Code(s): E11.621 - Type 2 diabetes mellitus with foot ulcer; L97.412 - Non-pressure chronic ulcer of right heel and midfoot with fat layer exposed; L97.412 - Non-pressure chronic ulcer of right heel and midfoot with fat layer exposed; L97.412 - Non-pressure chronic ulcer of right heel and midfoot with fat layer exposed; L97.412 - Non-pressure chronic ulcer of right heel and midfoot with fat layer exposed (6) Diabetes mellitus Current Visit: Yes Status: Chronic HgbA1C 7.9% in October. Recommend aggressive glucose monitoring and control to promote wound healing and prevent re-infection. Management per the primary team. Qualifiers: Diabetes mellitus type: type 2 Diabetes mellitus intermediate card tender insulin use: with senior living use Diabetes mellitus complication status: with skin complications Diabetes mellitus complication detail: with foot ulcer Qualified Code(s): E11.621 - Type 2 diabetes mellitus with foot ulcer; L97.509 - Non-pressure chronic ulcer of other part of unspecified foot with unspecified severity; L97.509 - Non-pressure chronic ulcer of other part of unspecified foot with unspecified severity; L97.509 - Non-pressure chronic ulcer of other part of unspecified foot with unspecified severity; L97.509 - Non-pressure chronic ulcer of other part of unspecified foot with unspecified severity; Z79.4 - terminal clerk (current) use of insulin; Z79.4 - [facility] (current) use of insulin; Z79.4 - terminal clerk (current) use of insulin; Z79.4 - [facility] (current ) use of insulin (7) HTN (hypertension) Current Visit: Yes Status: Chronic Qualifiers: Hypertension type: essential hypertension Qualified Code(s): I10 - Essential (primary) hypertension (8) Hyperlipidemia Current Visit: Yes Status: Chronic Qualifiers: Hyperlipidemia type: unspecified Qualified Code(s): E78.5 - Hyperlipidemia , unspecified (9) Peripheral neuropathy Current Visit: No Status: Chronic Qualifiers: Peripheral neuropathy type: polyneuropathy, unspecified Qualified Code(s): G62.9 - Polyneuropathy, unspecified (10) Tobacco abuse Current Visit: No Status: Chronic The patient continues to smoke about a half a pack of cigarettes per day. Discussed the importance of smoking cessation and its effect on wound healing. - Subjective Interval history: Patient seen and examined. No acute events noted overnight. Patient sitting up in bed. She states she wants to go home today. Status post calcanectomy by Dr. Snider. Patient states that overall she feels better. Denies fevers, chills, or rigors. Denies chest pain, shortness of breath, or cough. Denies nausea, vomiting, or diarrhea. Denies abdominal pain, urinary complaints, or appetite changes. Reports minimal pain at the surgical site. States her blood sugars have been okay. Denies oral thrush or new skin lesions. Infect Dis PN-Objective Data - Labs CBC & Chem 7: 02/21/18 08:33 02/21/18 08:33 Labs: Laboratory Results - last 24 hr 02/20/18 02/20/18 02/20/18 01:56 01:57 03:13 WBC RBC Hgb Hct MCV MCH MCHC RDW Plt Count MPV Immature Gran % Seg Neutrophils % Lymphocytes % Monocytes % Eosinophils % Basophils % Neutrophils # Lymphocytes # Monocytes # Eosinophils # Basophils # Sodium Potassium Chloride Carbon Dioxide BUN Creatinine Est GFR ( Amer) Est GFR (Non-Af Amer) BUN/Creatinine Ratio Glucose POC Glucose 452 H* 454 H* 422 H* Calculated Osmolality Calcium Vancomycin Trough 02/20/18 02/20/18 02/20/18 03:15 05:07 11:21 WBC RBC Hgb Hct MCV MCH MCHC RDW Plt Count MPV Immature Gran % Seg Neutrophils % Lymphocytes % Monocytes % Eosinophils % Basophils % Neutrophils # Lymphocytes # Monocytes # Eosinophils # Basophils # Sodium Potassium Chloride Carbon Dioxide BUN Creatinine Est GFR ( Amer) Est GFR (Non-Af Amer) BUN/Creatinine Ratio Glucose POC Glucose 406 H* 276 H 139 H Calculated Osmolality Calcium Vancomycin Trough 02/20/18 02/21/18 02/21/18 16:56 06:12 08:33 WBC 11.2 H RBC 2.79 L Hgb 8.1 L Hct 25.7 L MCV 92.1 MCH 29.0 MCHC 31.5 L RDW 14.6 H Plt Count 522 H MPV 9.1 L Immature Gran % 0.4 Seg Neutrophils % 65.4 Lymphocytes % 25.1 Monocytes % 6.1 Eosinophils % 2.5 Basophils % 0.5 Neutrophils # 7.3 Lymphocytes # 2.8 Monocytes # 0.7 Eosinophils # 0.3 Basophils # 0.1 Sodium Potassium Chloride Carbon Dioxide BUN Creatinine Est GFR ( Amer) Est GFR (Non-Af Amer) BUN/Creatinine Ratio Glucose POC Glucose 117 H Calculated Osmolality Calcium Vancomycin Trough 16 H 02/21/18 02/21/18 08:33 12:02 WBC RBC Hgb Hct MCV MCH MCHC RDW Plt Count MPV Immature Gran % Seg Neutrophils % Lymphocytes % Monocytes % Eosinophils % Basophils % Neutrophils # Lymphocytes # Monocytes # Eosinophils # Basophils # Sodium 138 Potassium 4.2 Chloride 107 Carbon Dioxide 26 BUN 30 H Creatinine 1.03 Est GFR ( Amer) > 60 Est GFR (Non-Af Amer) 57 L BUN/Creatinine Ratio 29 H Glucose 94 POC Glucose 207 H Calculated Osmolality 292 Calcium 8.9 Vancomycin Trough Cultures: Cultures 02/18/18 12:29 Blood Culture - Preliminary Peripheral Venipuncture No growth. 02/18/18 12:29 Blood Culture - Preliminary Peripheral Venipuncture No growth. 02/16/18 14:40 Wound Culture - Final Right Foot No pathogens isolated. Exam - Constitutional Vitals: Temp Pulse Resp BP Pulse Ox 98.3 F 99 15 131/81 88 02/21/18 11:59 02/21/18 11:59 02/21/18 11:59 02/21/18 11:59 02/21/18 11:59 General appearance: average body habitus, cooperative, no acute distress - Head Head exam: Present: atraumatic, normal inspection, normocephalic - Eye Eye exam: Present: EOMI, normal appearance, PERRL Pupils: Present: normal accommodation Additional comments: No subconjunctival hemorrhage noted. - ENT ENT exam: Present: mucous membranes moist - Neck Neck exam: Present: normal inspection - Respiratory Respiratory exam: Present: CTAB. Absent: rales, respiratory distress, rhonchi, wheezes - Cardiovascular Cardiovascular exam: Present: RRR, +S1, +S2 - GI/Abdominal GI/Abdominal exam: Present: normal bowel sounds, soft. Absent: distended, tenderness - Extremities Exam Extremities exam: Present: pedal edema (Trace RLE). Absent: joint swelling, tenderness Additional comments: Right foot wound VAC dressing intact with small amount of serosanguinous drainage noted. Overlying guaze C/D/I. - Neurological Exam Neurological exam: Present: alert, oriented X3, no focal deficits - Psychiatric Psychiatric exam: Present: normal affect, normal mood - Skin Skin exam: Present: dry, intact, normal color, warm Additional comments: No subconjunctival hemorrhage noted. Consult Discharge Plan - Plan Additional Instructions: Go to scheduled follow-up appt. Take medications as prescribed. Monitor wound for s/s of infection. NO weight-bearing to right foot. Referrals: Alejandro Le DO [Primary Care Provider] - Danielle Ovalle SENIOR ANALYSIS SPECIALIST [Advanced Practice Nurse] - 03/07/18 8:40 am Prescriptions: Vancomycin [Vancocin (wt based)] 1,000 mg IV Q24H #56 vial - Attending Attestation I examined this patient and my medical decision-making was reviewed with the Resident Physician. I agree with the documented findings, disposition and treatment plan as described except to the extent set forth below.
--- NOTE | 2018-02-21 16:52 | Discharge Summary ---
- NOTES TO OUTPATIENT PROVIDER Notes to Outpatient Provider: Patient to follow-up with infectious disease for management of vancomycin dosing in addition to weekly CBC, BUN/Cr, ESR, CRP, and Vanc trough. Orders not resulted at time of discharge: Pending orders 02/18/18 12:29 Culture,Blood [BC] Routine 02/19/18 15:11 Surgical Pathology [PTH] Routine Date of Encounter: 02/21/18 Time of Encounter: 11:00 - Discharge Diagnosis (1) Osteomyelitis Priority: Primary Status: Chronic Assessment and Plan: Patient found to have osteomyelitis and right calcaneus, right cuboid and right navicular foot Suspected organism MRSA Podiatry following Status post calcanectomy with skin graft placement per patient on 02/19/18; intra-op cultures and pathology are pending. Infectious disease following with recommendations for 6 week course of IV antibiotics as an outpatient VAT consulted for PICC line placement Continue IV vancomycin while inpatient Qualifiers: Osteomyelitis type: subacute Osteomyelitis location: foot Laterality: right Qualified Code(s): M86.271 - Subacute osteomyelitis, right ankle and foot (2) MRSA bacteremia Priority: Primary Status: Acute Assessment and Plan: Blood cultures drawn from infectious diseases office on February 14 grow staph aureus, possibly MRSA. Repeat blood cultures were negative. Transthoracic echocardiogram showed no evidence of valvular vegetations. (3) Sepsis Priority: Primary Status: Acute Assessment and Plan: Resolved; secondary to MRSA bacteremia due to osteomyelitis of right foot Qualifiers: Sepsis type: sepsis due to unspecified organism Qualified Code(s): A41.9 - Sepsis, unspecified organism (4) HTN (hypertension) Priority: Secondary Status: Chronic Qualifiers: Hypertension type: essential hypertension Qualified Code(s): I10 - Essential (primary) hypertension (5) Anemia Priority: Secondary Status: Chronic Qualifiers: Anemia type: unspecified type Qualified Code(s): D64.9 - Anemia, unspecified (6) Acute kidney injury Priority: Secondary Status: Resolved (7) Diabetes mellitus Priority: Secondary Status: Chronic Qualifiers: Diabetes mellitus type: type 2 Diabetes mellitus custodial insulin use: with middle or intermediate school principal use Diabetes mellitus complication status: with skin complications Diabetes mellitus complication detail: with foot ulcer Qualified Code(s): E11.621 - Type 2 diabetes mellitus with foot ulcer; L97.509 - Non-pressure chronic ulcer of other part of unspecified foot with unspecified severity; L97.509 - Non-pressure chronic ulcer of other part of unspecified foot with unspecified severity; L97.509 - Non-pressure chronic ulcer of other part of unspecified foot with unspecified severity; L97.509 - Non-pressure chronic ulcer of other part of unspecified foot with unspecified severity; Z79.4 - watermaster (current) use of insulin; Z79.4 - snf (current) use of insulin; Z79.4 - watermaster (current) use of insulin; Z79.4 - snf (current ) use of insulin (8) Hyperlipidemia Priority: Secondary Status: Chronic Qualifiers: Hyperlipidemia type: unspecified Qualified Code(s): E78.5 - Hyperlipidemia , unspecified Hospital course: Patient is a 47-year-old female with past medical history significant for hypertension GERD diabetes and chronic osteomyelitis who presented on 02/15/18 due to 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 Patient had history of chronic osteomyelitis with MRSA since September 2017 and had multiple rounds of antibiotics under the guidance of ID specialist. ID specialist decided to stop antibiotic 2 weeks ago to see that how patient is doing without antibiotic but she ended up having above symptoms. Her ID specialist called today morning with positive blood culture report and advised to come to emergency room immediately. In ER patient was found to have mild fever and tachycardia. CT foot was done with finding suggestive of persistent osteomyelitis. First dose of IV vancomycin antibiotic was given in the ER. Patient was admitted for MRSA bacteremia with osteomyelitis. During patients hospital stay, infectious disease was consulted and repeat blood cultures ordered which were negative. Patient was continued on IV vancomycin per infectious disease recommendations. Podiatry was also consulted with recommendations for calcanectomy with skin graft placement on 02/19/18. Patient will be discharged with infectious disease recommendations to continue IV vancomycin for a total of 6 weeks and to follow-up with infectious disease and podiatry as an outpatient. - Time Spent with Patient Total time spent providing and/or coordinating discharge services: - Discharge Medications Prescriptions: Vancomycin [Vancocin (wt based)] 1,000 mg IV Q24H #56 vial Home Medications: Atorvastatin [Lipitor] 20 mg PO QPM 06/11/15 [History] Cholecalciferol (Vitamin D3) [Vitamin D3] 10,000 unit PO WE 06/11/15 [History] Ibuprofen [Motrin] 800 mg PO TID PRN 06/11/15 [History] Insulin ASPART [NovoLOG] 0 - 12 unit SQ AD PRN 06/11/15 [History] Insulin Glargine,Hum.rec.anlog [Lantus Solostar] 35 units SQ QPM 06/11/15 [ History] Quetiapine Fumarate [Seroquel] 100 mg PO HS 06/11/15 [History] Aspirin [Lo-Dose Aspirin EC] 81 mg PO DAILY 10/10/17 [History] Lisinopril-HCTZ 20-12.5 [Prinzide 20-12.5] 1 tab PO DAILY 10/10/17 [History] Omeprazole [PriLOSEC] 40 mg PO DAILY 10/10/17 [History] Gabapentin [Neurontin] 800 mg PO TID 11/23/17 [History] Liraglutide [Victoza 2-Yunier] 1.2 mg SQ DAILY 01/09/18 [History] Lactobacillus [Culturelle] 1 each PO DAILY #14 cap.sprink 01/13/18 [Rx] FLUoxetine HCl [Prozac] 40 mg PO QAM 02/15/18 [History] Vancomycin [Vancocin (wt based)] 1,000 mg IV Q24H #56 vial 02/21/18 [Rx] Allergies/Adverse Reactions: 3 Allergy/AdvReac Type Severity Reaction Status Date / Time Penicillins Allergy Swelling Verified 11/23/17 12:37 of Lip/Tongue/Throat Date of admission: 02/15/18 16:26 Primary care physician: Alejandro Le Consults: 02/15/18 16:29 Consult to Physical Therapy [CONS] Routine Comment: Evaluate, develop and implement POC Reason for Consult: Generalized weakness Does patient have active BEDREST order?: No Is patient medically & hemodynamically stable?: Yes Patient assessed for mobility or mobilized this visit?: No 02/15/18 16:34 Consult to Infectious Diseases [CONS] Stat Consulting Provider: Infectious Disease [facility] Reason for Consult: MRSA bacteremia Call Completed: No Consult to Podiatry [CONS] Routine Consulting Provider: Podiatry [facility] Reason for Consult: Osteomyelitis, chronic foot ulcer Call Completed: No 02/20/18 12:22 Consult to Invasive Line Access Team [CONS] Routine Reason for Consult: Picc Line Insertion Line Type: PICC PICC line indications: snf Med/Antibiotic Time Notified: 12:22 Call Completed: Yes - Constitutional Vitals: Temp Pulse Resp BP Pulse Ox 98.3 F 99 15 131/81 88 02/21/18 11:59 02/21/18 11:59 02/21/18 11:59 02/21/18 11:59 02/21/18 11:59 General appearance: Present: A&O X 3, answers questions appropriately - Respiratory Respiratory exam: Present: CTAB. Absent: accessory muscle use, rales, rhonchi, wheezes - Cardiovascular Cardiovascular exam: Present: RRR, +S1, +S2. Absent: diastolic murmur, gallop, rubs, systolic murmur - Patient Status Disposition: Home Health Service Condition: Good - Discharge Instructions Follow Up With: Danielle Ovalle CNP [Advanced Practice Nurse] - 03/07/18 8:40 am Alejandro Le DO [Primary Care Provider] - Forms: ED Satisfaction Letter Additional Instructions: Go to scheduled follow-up appt. Take medications as prescribed. Monitor wound for s/s of infection. NO weight-bearing to right foot.
[2018-02-21 16:58] VITALS: BP 164/85
--- NOTE | 2018-02-21 16:59 | Physician Discharge Referral ---
Home Health/Hosp Referral Info Transfer to: Home Health - Diagnosis (1) Osteomyelitis Priority: Primary Status: Chronic (2) MRSA bacteremia Priority: Primary Status: Acute (3) Sepsis Priority: Primary Status: Acute (4) HTN (hypertension) Priority: Secondary Status: Chronic (5) Anemia Priority: Secondary Status: Chronic (6) Acute kidney injury Priority: Secondary Status: Resolved (7) Diabetes mellitus Priority: Secondary Status: Chronic (8) Hyperlipidemia Priority: Secondary Status: Chronic - Respiratory Orders Smoking Cessation: Smoking cessation has been advised. For more information, call the [place] [employer] Quit Line at 2-746-XAYQ-NOW. - Services Needed Following services are medically necessary services: Nursing, Home Infusion ( Patient will need wound care as well) - Transfer Medications Prescriptions: Vancomycin [Vancocin (wt based)] 1,000 mg IV Q24H #56 vial Home Medications: Atorvastatin [Lipitor] 20 mg PO QPM 06/11/15 [History] Cholecalciferol (Vitamin D3) [Vitamin D3] 10,000 unit PO WE 06/11/15 [History] Ibuprofen [Motrin] 800 mg PO TID PRN 06/11/15 [History] Insulin ASPART [NovoLOG] 0 - 12 unit SQ AD PRN 06/11/15 [History] Insulin Glargine,Hum.rec.anlog [Lantus Solostar] 35 units SQ QPM 06/11/15 [ History] Quetiapine Fumarate [Seroquel] 100 mg PO HS 06/11/15 [History] Aspirin [Lo-Dose Aspirin EC] 81 mg PO DAILY 10/10/17 [History] Lisinopril-HCTZ 20-12.5 [Prinzide 20-12.5] 1 tab PO DAILY 10/10/17 [History] Omeprazole [PriLOSEC] 40 mg PO DAILY 10/10/17 [History] Gabapentin [Neurontin] 800 mg PO TID 11/23/17 [History] Liraglutide [Victoza 2-Yunier] 1.2 mg SQ DAILY 01/09/18 [History] Lactobacillus [Culturelle] 1 each PO DAILY #14 cap.sprink 01/13/18 [Rx] FLUoxetine HCl [Prozac] 40 mg PO QAM 02/15/18 [History] Vancomycin [Vancocin (wt based)] 1,000 mg IV Q24H #56 vial 02/21/18 [Rx] Allergies/Adverse Reactions: 3 Allergy/AdvReac Type Severity Reaction Status Date / Time Penicillins Allergy Swelling Verified 11/23/17 12:37 of Lip/Tongue/Throat Certification: Further, I certify that my clinical findings support that this patient is homebound (i.e. absences from home require considerable and taxing effort and are for medical reasons or sabianist services or infrequently or short duration when for other reasons) because: Homebound Reason: Patient requires assistance of a person or device to safely leave home Attestation: My signature below is to certify that this patient is under my care and that I, or nurse practitioner, or a physician's golf course assistant working with me, has a face-to -face encounter with this patient.
[2018-02-21] MEDS: Insulin DETEMIR 100 UNIT/ML X5UNITS SQ SCH (17:40)
[2018-02-21] MEDS ORDERED: Aminoglycoside Consult 1 EACH MC ONE (19:43)
== END 2018-02-21 19:44 | disposition home health service (06) | DRG 854 ==
LOC: EMEROO 12:34 → 3NENU 12:34 → SUATTDRO 16:26
PROVIDERS: ADMIT Family Medicine; ATTEND Hospitalist

== ENCOUNTER 2018-05-03 19:56 | Inpatient (IN) ==
[2018-05-03] MEDS ORDERED: 0.9 % Sodium Chloride 1,000 ML IVC SCH (23:45)
[2018-05-03] MEDS ORDERED: Vancomycin (wt based) 1,000 MG VIAL IVPB SCH (23:45)
[2018-05-03] MEDS ORDERED: Naloxone 0.4 MG/ML INJ IVP PRN (23:47)
[2018-05-03] MEDS ORDERED: Insulin DETEMIR 100 UNIT/ML X5UNITS SQ ONE (23:59)
--- NOTE | 2018-05-04 00:03 | Internal Med History&Physical ---
<Mic Gipson - Last Filed: 05/04/18 02:21> Date of Encounter: 05/04/18 Time of Encounter: 00:01 Internal Medicine - H&P: HPI Chief complaint: Weakness Admitted From: Hospital to Hospital Transfer History of present illness: Ms. Larson is a 47 year old female with a recent hospitalization for MRSA bacteremia and osteomyelitis of right foot calcaneus, right cuboid, and right navicular who presented from [facility] secondary to severe sepsis. Of note, patient was on IV vancomycin and transition to oral Bactrim 3 weeks ago. Patient is alert and oriented during time of encounter and wearing BiPAP due to acute SOB. She complains of feeling weak since waking up this morning. Family is at bedside and reports patient was very disoriented this morning did not even know her own name. She had a similar episode of recurrent bacteremia 3 weeks after her last PICC line was removed. Patient received 2L NS bolus, Vanc, Merrem, Rocephin, and Zosyn at [facility] prior to arrival. Labs prior to arrival revealed a potassium level 6.9 and patient was treated with insulin, glucose, and Kayexalate prior to arrival. EKG revealed sinus tachycardia. She is followed by podiatry and infectious disease as an outpatient. TTE was negative for vegetations during last hospital stay. Past Med Surg Social Fam HX - Past Medical History Medical history: diabetes, GERD, hypertension Psychiatric history: depression - Past Surgical History Surgical History: hysterectomy, other (Right foot I & D, left foot great toe amputation) Additional surgical history: back surgery, b/l foot surgeries, L5S1 disectomy, discogram-2008, amputation left foot, freat toe-2011, right heel x2 - Social History Smoking Status: Current every day smoker Smokeless Tobacco Status: No Alcohol use: none Drug use: none - Family History Sister Hx Family Endocrine Disorder: Yes (Diabetes) Grandfather Hx Family Cardiac Disorders: Yes (Coronary artery disease at age 50) Father Family Member Ethnicity: Non- Living Status: Still Living Hx Family Cardiac Disorders: Yes Hx Family Respiratory Disorders: No Hx Family Cancer: Yes Hx Family GI Disorders: No Hx Family Endocrine Disorder: Yes Hx Family Neuromuscular Disorders: No Hx Family Neurologic Disorders: No Hx Family HEENT Disorders: No Hx Family Autoimmune Disorders: No Internal Medicine - H&P: Meds Atorvastatin [Lipitor] 20 mg PO QPM 06/11/15 [History] Cholecalciferol (Vitamin D3) [Vitamin D3] 10,000 unit PO WE 06/11/15 [History] Ibuprofen [Motrin] 800 mg PO TID PRN 06/11/15 [History] Insulin ASPART [NovoLOG] 0 - 12 unit SQ AD PRN 06/11/15 [History] Insulin Glargine,Hum.rec.anlog [Lantus Solostar] 35 units SQ QPM 06/11/15 [ History] Quetiapine Fumarate [Seroquel] 100 mg PO HS 06/11/15 [History] Aspirin [Lo-Dose Aspirin EC] 81 mg PO DAILY 10/10/17 [History] Lisinopril-HCTZ 20-12.5 [Prinzide 20-12.5] 1 tab PO DAILY 10/10/17 [History] Omeprazole [PriLOSEC] 40 mg PO DAILY 10/10/17 [History] Gabapentin [Neurontin] 800 mg PO TID 11/23/17 [History] Liraglutide [Victoza 2-Yunier] 1.2 mg SQ DAILY 01/09/18 [History] Lactobacillus [Culturelle] 1 each PO DAILY #14 cap.sprink 01/13/18 [Rx] FLUoxetine HCl [Prozac] 40 mg PO QAM 02/15/18 [History] Vancomycin [Vancocin (wt based)] 1,000 mg IV Q24H #56 vial 02/21/18 [Rx] 3 Allergy/AdvReac Type Severity Reaction Status Date / Time Penicillins Allergy Swelling Verified 11/23/17 12:37 of Lip/Tongue/Throat All Systems PM: A 10-system review of systems was performed and is negative for pertinent findings except as documented above in the HPI. - Constitutional Constitutional: lethargy, weakness, no chills, no fever(s) - EENT Eyes: no blurry vision, no diplopia, no loss of vision - Cardiovascular Cardiovascular ROS IM: no chest pain, no orthopnea, no palpitations - Respiratory Respiratory: dyspnea, no cough, no chest congestion - Gastrointestinal Gastrointestinal: no abdominal pain, no diarrhea, no nausea, no vomiting - Genitourinary Genitourinary: no dysuria, no urinary frequency, no urinary urgency - Musculoskeletal Musculoskeletal ROS IM: no arthralgias, no numbness, no tingling - Integumentary Integumentary IM: non-healing lesions, skin ulcer, no erythema, no rash - Neurological Neurological ROS: weakness, no confusion, no dizziness, no numbness - Psychiatric Psychiatric: no anxiety, no depression - Endocrine Endocrine IM: fatigue, no polydipsia, no polyphagia, no polyuria - Hematologic/Lymphatic Hematologic/Lymphatic: no easy bleeding, no easy bruising - Constitutional Vitals: Temp Pulse Resp BP Pulse Ox 98.8 F 105 18 142/95 95 05/03/18 23:10 05/03/18 23:30 05/03/18 23:30 05/03/18 23:30 05/03/18 23:30 General appearance: Present: cooperative, mild distress (waering Bipap), A&O X 3 , pleasant, obese, answers questions appropriately - Head Head exam: Present: atraumatic, normocephalic - Eye Eye exam: Present: PERRL, conjuntiva pink, sclera anicteric Pupils: Present: PERRL - ENT ENT exam: Present: mucous membranes dry, normal oropharynx - Neck Neck exam general surgery: Present: supple, trachea midline. Absent: lymphadenopathy - Respiratory Respiratory exam: Present: decreased breath sounds, prolonged expiratory phase, respiratory distress (mild, wearing bipap). Absent: accessory muscle use, rales , rhonchi, wheezes - Cardiovascular Cardiovascular exam: Present: +S1, +S2, tachycardia. Absent: diastolic murmur, gallop, RRR, rubs, systolic murmur - GI/Abdominal GI/Abdominal exam: Present: normal bowel sounds, soft, no peritoneal signs. Absent: distended, guarding, tenderness - Extremities Exam Extremities exam: Present: normal capillary refill, warm, radial pulses palpable and symmetrical. Absent: calf tenderness, cyanotic, normal inspection (wound vac in place RLE), pedal edema - Incison Incision: Present: open (wound vac in place) - Neurological Exam Neurological exam: Present: CN II-XII intact, oriented X3, no focal deficits. Absent: pronater drift, facial droop, speech deficit - Skin Skin exam: Present: pallor. Absent: normal color - Expanded Skin Exam Distribution of rash: Present: RLE (wound vac in place right heel over 6 cm diameter ulcer with an erythematous base) Internal Med - H&P Results - Labs CBC & Chem 7: 05/04/18 00:10 05/04/18 01:02 - ABG Interpretation Interpretation: ABG interpreted by me Interpretation: normal - Pulse Oximetry Interpretation Forehead O2 Sat by Pulse Oximetry: 95 (BiPap) - EKG Data -: EKG Interpreted by Myself EKG shows normal: sinus rhythm Rate: tachycardia (HR 106) - Impressions ITS Impressions Chest X-Ray 05/03/18 23:54 IMPRESSION: Findings could reflect pulmonary edema, viral process or diffuse airway inflammation on this exam limited by shallow inspiratory effort. No focal pneumonia. D/ / Pedro Fernandez / Pedro Fernandez Interpreting Provider: Pedro Fernandez - Assessment and plan (1) Severe sepsis due to methicillin resistant Staphylococcus aureus (MRSA) with acute organ dysfunction Current Visit: Yes Status: Acute Assessment and plan: Patient met sepsis criteria with leukocytosis white blood cell count 18.3, tachypnea respiratory rate 22, tachycardia heart rate 106, and bacteremia as likely source of infection. elevated ESR 85, CRP 288, lactic acid within normal limits Patient was previously on IV vancomycin and transition to oral Bactrim 3 weeks ago per family. Patient received 2L NS bolus, Vanc, Merrem, Rocephin, and Zosyn at [facility] prior to arrival. She is followed by podiatry and infectious disease Continue vancomycin IV, renally dosed Levaquin, and Merrem due to PCN allergy, descalate antibiotics based on culture results Continue gentle IV fluids Critical care, ID, and Podiatry consulted Continue close monitoring (2) MRSA bacteremia Current Visit: Yes Status: Suspected Assessment and plan: TTE was negative for vegetations during last hospital stay. Repeat blood cultures pending Consider repeat echocardiogram depending on blood culture results (3) Osteomyelitis Current Visit: No Status: Chronic Assessment and plan: Recent hospitalization for MRSA bacteremia and osteomyelitis of right foot calcaneus, right cuboid, and right navicular ESR CRP levels elevated CT revealed possible abscess Podiatry consulted for possible debridement NPO after midnight Qualifiers: Osteomyelitis type: subacute Osteomyelitis location: foot Laterality: right Qualified Code(s): M86.271 - Subacute osteomyelitis, right ankle and foot (4) Diabetic foot ulcer Current Visit: Yes Status: Chronic Assessment and plan: Podiatry and Wound care consulted Qualifiers: Diabetic foot ulcer location: heel Diabetes mellitus type: type 2 Laterality: right Non-pressure ulcer stage: with fat layer exposed Qualified Code(s): E11.621 - Type 2 diabetes mellitus with foot ulcer; L97.412 - Non-pressure chronic ulcer of right heel and midfoot with fat layer exposed (5) Acute kidney injury Current Visit: Yes Status: Acute Assessment and plan: Patient with ROGER in the setting of severe sepsis, recent IV contrast, patient received 2L NS bolus, Vanc, Merrem, Rocephin, and Zosyn at [facility] prior to arrival. Avoid nephrotoxins, hold home antihypertensive medications Continue renally dose antibiotics Continue gentle hydration Monitor renal function (6) Hyperkalemia Current Visit: Yes Status: Acute Assessment and plan: Labs prior to arrival revealed a potassium level 6.9 and patient was treated with insulin, glucose, and Kayexalate prior to arrival. Repeat potassium 6.1 Continue Kayexelate, insulin, and glucose Monitor BMP every 4 hours until hyperkalemia resolves Telemetry monitoring (7) Diabetes mellitus Current Visit: Yes Status: Chronic Assessment and plan: Elevated blood glucose Last hemoglobin A1c level 7.9 on 11/22/17 Continue basal and sliding-scale insulin Qualifiers: Diabetes mellitus type: type 2 Diabetes mellitus group home insulin use: with group home use Diabetes mellitus complication status: with skin complications Diabetes mellitus complication detail: with foot ulcer Qualified Code(s): E11.621 - Type 2 diabetes mellitus with foot ulcer; L97.509 - Non-pressure chronic ulcer of other part of unspecified foot with unspecified severity; L97.509 - Non-pressure chronic ulcer of other part of unspecified foot with unspecified severity; L97.509 - Non-pressure chronic ulcer of other part of unspecified foot with unspecified severity; L97.509 - Non-pressure chronic ulcer of other part of unspecified foot with unspecified severity; 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 Qualifiers: Hypertension type: essential hypertension Qualified Code(s): I10 - Essential (primary) hypertension (9) Hyperlipidemia Current Visit: No Status: Chronic Assessment and plan: Continue home meds Qualifiers: Hyperlipidemia type: unspecified Qualified Code(s): E78.5 - Hyperlipidemia , unspecified (10) Peripheral neuropathy Current Visit: No Status: Chronic Assessment and plan: Continue home meds. Qualifiers: Peripheral neuropathy type: polyneuropathy, unspecified Qualified Code(s): G62.9 - Polyneuropathy, unspecified (11) Tobacco abuse Current Visit: Yes Status: Chronic Assessment and plan: Nicotine patch ordered. Importance or tobacco cessation discussed to promote wound healing (12) DVT prophylaxis Current Visit: Yes Status: Acute Assessment and plan: Heparin subcutaneous (13) Obesity (BMI 30.0-34.9) Current Visit: No Status: Chronic Assessment and plan: Lifestyle modification - Time Spent With Patient Total time spent is greater than 50% in coordination of care (as documented) at patient's floor/unit and/or counseling patient: Sepsis Screening Tool - Triage Criteria SIRS Triage Criteria: yes Tachycardia: heart rate greater than 90 beats per minute, yes Tachypnea: respirations greater than 20 per minute or PaO2 l, yes WBC: less than 4,000 or greater than 12,000; or greater than, no Temperature: less than 96.8 F or greater than 100.4 F Does the patient meet two of the above criteria?: yes - History Is the patient's history or assessment suggestive of a new i: Yes If so, indicate all that apply: Bone/joint infection, Skin/soft tissue infection - Severe Sepsis Severe Sepsis: Bilateral pulmonary infiltrates with increased oxygen requirement <Rosana John - Last Filed: 05/04/18 02:37> Date of Encounter: 05/04/18 Internal Medicine - H&P: HPI History of present illness: Ms. Larson is a 47 year old female All Systems PM: A 10-system review of systems was performed and is negative for pertinent findings except as documented above in the HPI. - Constitutional Vitals: Temp Pulse Resp BP Pulse Ox 98.8 F 101 20 123/82 96 05/03/18 23:10 05/04/18 02:00 05/04/18 02:00 05/04/18 02:00 05/04/18 02:00 Internal Med - H&P Results - Labs CBC & Chem 7: 05/04/18 00:10 05/04/18 01:02 Labs: Short CBC 05/04/18 Range/Units 00:10 WBC 18.3 H (4.3-11.1) K/mcL Hgb 9.2 L (11.5-15.4) g/dL Hct 27.2 L (35.3-44.9) % Plt Count 403 H (140-400) K/mcL Neutrophils # 17.9 H (1.6-8.9) K/mcL BMP 05/04/18 01:02 Sodium 129 L Potassium 6.1 H Chloride 102 Carbon Dioxide 20 L BUN 56 H Creatinine 2.45 H Glucose 429 H Calcium 8.9 Liver Function 05/04/18 Range/Units 01:02 Total Bilirubin 0.2 L (0.3-1.0) mg/dL AST 53 H (13-39) Units/L ALT 36 (7-52) Units/L Alkaline Phosphatase 154 H (34-104) Units/L Albumin 3.2 L (3.5-5.7) g/dL Urine 05/04/18 Range/Units 00:01 Urine Color Yellow (Yellow) Urine Clarity Clear (Clear) Urine pH 6.0 (5.0-8.0) pH Units Ur Specific [place] 1.026 H (1.010-1.025) Urine Protein 100 H (Neg-Trace) mg/dL Urine Glucose (UA) >=1000 H (Normal) mg/dL - ABG Interpretation ABG results: 05/04/18 00:30 ABG pH 7.34 ABG pCO2 42 ABG pO2 95 ABG HCO3 23 ABG Total CO2 24 ABG O2 Saturation 97 ABG Base Excess -3 L - Impressions ITS Impressions Chest X-Ray 05/03/18 23:54 IMPRESSION: Findings could reflect pulmonary edema, viral process or diffuse airway inflammation on this exam limited by shallow inspiratory effort. No focal pneumonia. D/ / Pedro Fernandez / Pedro Fernandez Interpreting Provider: Pedro Fernandez - Attending Attestation I personally examined the patient and reviewed the records sent from [facility]. I also reviewed the resident's clinical notes and agreed with plan of care. 47 year old female with history of recurrent MRSA bacteremia, non-healing foot ulcer, osteomyelitis is status post calcanectomy and a skin graft recently completed vancomycin for 6 week and switched to Bactrim for last 3 weeks has been under care of Dr. Snider anesthetic assistant and ID specialist was transferred from [facility] to [facility] for further management of severe sepsis , electrolyte imbalance, acute renal failure and possible pulmonary edema. Patient was admitted to ICU. Initial treatment at [facility] was broader spectrum antibiotic vancomycin, Zosyn, Rocephin, meropenem was given and BiPAP was started. 2 L normal saline bolus was given in the [facility]. CT foot was done in [facility] with finding of possible abscess. CT brain with no acute finding On examination patient lying on bed comfortably while BiPAP on, lung clear bilaterally except slight diminished at the base but no or wheezing, CVS S1-S2 heard with no systolic murmur, abdomen with no acute finding, right lower extremity-deep wound with slight pus on goes space superiorly, irregular margin otherwise look dry with some granulation tissue, 5 into 6 cm possible sinus tract over left superior aspect of the ulcer, nontender. Will treat sepsis with broader spectrum antibiotic vancomycin, meropenem and Levaquin for broader spectrum coverage, blood culture drawn. Will also consult clinical education specialist for further management as patient also developing pulmonary edema but does not appear in respiratory distress. IV fluid decreased 60 mL per hour with a strict I&O's as patient also developing acute kidney injury most likely due to sepsis. Treatment for hyperkalemia was given, no acute finding in the EKG. Close monitoring of BMP. Will consult television production assistant if needed. Will also consult anesthetic assistant's and ID specialist. High blood glucose level subcutaneous insulin is given but if no response then will consider IV insulin. - Assessment and plan (1) Osteomyelitis Current Visit: No Status: Chronic Qualifiers: Osteomyelitis type: subacute Osteomyelitis location: foot Laterality: right Qualified Code(s): M86.271 - Subacute osteomyelitis, right ankle and foot (2) Diabetes mellitus Current Visit: Yes Status: Chronic Qualifiers: Diabetes mellitus type: type 2 Diabetes mellitus group home insulin use: with group home use Diabetes mellitus complication status: with skin complications Diabetes mellitus complication detail: with foot ulcer Qualified Code(s): E11.621 - Type 2 diabetes mellitus with foot ulcer; L97.509 - Non-pressure chronic ulcer of other part of unspecified foot with unspecified severity; L97.509 - Non-pressure chronic ulcer of other part of unspecified foot with unspecified severity; L97.509 - Non-pressure chronic ulcer of other part of unspecified foot with unspecified severity; L97.509 - Non-pressure chronic ulcer of other part of unspecified foot with unspecified severity; Z79.4 - [facility] (current) use of insulin; Z79.4 - [facility] (current) use of insulin; Z79.4 - predatory animal exterminator (current) use of insulin; Z79.4 - [facility] (current ) use of insulin (3) Tobacco abuse Current Visit: Yes Status: Chronic (4) Peripheral neuropathy Current Visit: No Status: Chronic Qualifiers: Peripheral neuropathy type: polyneuropathy, unspecified Qualified Code(s): G62.9 - Polyneuropathy, unspecified (5) HTN (hypertension) Current Visit: No Status: Chronic Qualifiers: Hypertension type: essential hypertension Qualified Code(s): I10 - Essential (primary) hypertension (6) Acute kidney injury Current Visit: Yes Status: Acute (7) Hyperkalemia Current Visit: Yes Status: Acute (8) Hyperlipidemia Current Visit: No Status: Chronic Qualifiers: Hyperlipidemia type: unspecified Qualified Code(s): E78.5 - Hyperlipidemia , unspecified (9) Diabetic foot ulcer Current Visit: Yes Status: Chronic Qualifiers: Diabetic foot ulcer location: heel Diabetes mellitus type: type 2 Laterality: right Non-pressure ulcer stage: with fat layer exposed Qualified Code(s): E11.621 - Type 2 diabetes mellitus with foot ulcer; L97.412 - Non-pressure chronic ulcer of right heel and midfoot with fat layer exposed (10) DVT prophylaxis Current Visit: Yes Status: Acute (11) MRSA bacteremia Current Visit: Yes Status: Suspected (12) Severe sepsis due to methicillin resistant Staphylococcus aureus (MRSA) with acute organ dysfunction Current Visit: Yes Status: Acute (13) Obesity (BMI 30.0-34.9) Current Visit: No Status: Chronic - Time Spent With Patient Total time spent is greater than 50% in coordination of care (as documented) at patient's floor/unit and/or counseling patient:
[2018-05-04 00:12] LABS: Bilirubin,Urine Negative (Negative); Blood,Urine Negative (Negative); Clarity,Urine Clear (Clear); Color,Urine Yellow (Yellow); Glucose,Urine (UA) >=1000 mg/dL (Normal); Ketones,Urine Negative (Negative); Leukocyte Esterase,Urine Negative (Negative); Nitrite,Urine Negative (Negative); Protein,Urine 100 mg/dL (Neg-Trace); Specific Gravity,Urine 1.026 (1.010-1.025); Urobilinogen,Urine Normal (Normal)
[2018-05-04 00:25] LABS: Bacteria,Urine None Seen per hpf (None-Few); Hyaline Casts,Urine None Seen per lpf (None-Few); RBC,Urine 0-3 per hpf (0-3); Squamous Epithelial Cell,Urine Many per lpf (None-Few); WBC,Urine 0-3 per hpf (0-3)
[2018-05-04 00:31] LABS: Basophils % 0.1 %; Hematocrit 27.2 % (35.3-44.9); Hemoglobin 9.2 g/dL (11.5-15.4); Immature Granulocytes % 0.5 % (0-4); Lymphocytes # 0.2 K/mcL (0.6-4.6); Mean Corpuscular HGB Conc 33.8 g/dL (31.6-35.5); Mean Corpuscular Volume 85.8 fL (83.0-100.0); Mean Platelet Volume 9.9 fL (9.4-12.4); Monocytes # 0.1 K/mcL (0.0-1.3); Monocytes % 0.7 %; Neutrophils # 17.9 K/mcL (1.6-8.9); Platelet Count 403 K/mcL (140-400); Red Blood Count 3.17 M/mcL (3.82-4.97); Red Cell Distribution Width 15.9 % (11.5-14.5); Segmented Neutrophils % 97.7 %
[2018-05-04 00:35] LABS: ABG Base Excess -3 mEq/L (-2 to 3); ABG HCO3 23 mEq/L (21-27); ABG Oxygen Saturation 97 % (95-98); ABG PCO2 42 mmHg (35-45); ABG PH 7.34 pH Units (7.32-7.45); ABG PO2 95 mmHg (85-104); ABG TCO2 24 mEq/L (20-26)
[2018-05-04] MEDS ORDERED: Dextrose Gel 15 GM/37.5 ML TUBE PO PRN ×2 (00:39)
[2018-05-04] MEDS ORDERED: *HR* Dextrose 50 % in Water (Syg) 50 ML SYRINGE IVP PRN (00:39)
[2018-05-04] MEDS ORDERED: Insulin LISPRO 300 UNITS/3 ML VIAL SQ SCH ×2 (00:39→07:30)
[2018-05-04] MEDS ORDERED: D5% in Water 1,000 ML IVC PRN (00:39)
[2018-05-04 00:40] LABS: INR 1.2; Prothrombin Time 13.3 Seconds (9.4-12.1)
[2018-05-04] MEDS: Nicotine 7 MG PATCH.TD24 TD SCH ×2 (00:42→07:42)
[2018-05-04 00:53] LABS: Platelet Estimate Normal (Normal)
[2018-05-04 01:20] LABS: Albumin 3.2 g/dL (3.5-5.7); Albumin/Globulin Ratio 0.8 (1.1-2.2); Bilirubin,Total 0.2 mg/dL (0.3-1.0); Calcium 8.9 mg/dL (8.6-10.3); Globulin 3.8 g/dL (2.4-3.5); Magnesium 2.2 mg/dL (1.6-2.6); Phosphorous 4.3 mg/dL (2.7-4.5); Potassium 6.1 mEq/L (3.5-5.1)
[2018-05-04] MEDS ORDERED: Dextrose Gel 15 GM/37.5 ML TUBE PO ONE (01:23)
[2018-05-04] MEDS ORDERED: 0.9 % Sodium Chloride 1,000 ML IVC SCH (02:30)
[2018-05-04] MEDS: Levofloxacin 750 MG/150 ML 750 MG/150 ML BAG IVPB SCH (02:51)
[2018-05-04] MEDS: Ipratropium/Albuterol Neb 3 ML IH SCH ×5 (03:51→20:05)
[2018-05-04 05:33] LABS: Calcium 8.3 mg/dL (8.6-10.3); Potassium 4.3 mEq/L (3.5-5.1)
[2018-05-04] MEDS: *HR* Heparin 5,000 UNIT/ML VIAL SQ SCH ×2 (05:46→18:02)
--- NOTE | 2018-05-04 07:03 | Pulmonology Consult Note ---
<Chip Matt W - Last Filed: 05/04/18 10:52> Date of Encounter: 05/04/18 Medications and Allergies Atorvastatin [Lipitor] 20 mg PO QPM 06/11/15 [History] Cholecalciferol (Vitamin D3) [Vitamin D3] 10,000 unit PO WE 06/11/15 [History] Ibuprofen [Motrin] 800 mg PO TID PRN 06/11/15 [History] Insulin ASPART [NovoLOG] 0 - 12 unit SQ TID PRN 06/11/15 [History] Insulin Glargine,Hum.rec.anlog [Lantus Solostar] 35 units SQ QPM 06/11/15 [ History] Quetiapine Fumarate [Seroquel] 100 mg PO HS 06/11/15 [History] Aspirin [Lo-Dose Aspirin EC] 81 mg PO DAILY 10/10/17 [History] Lisinopril-HCTZ 20-12.5 [Prinzide 20-12.5] 1 tab PO DAILY 10/10/17 [History] Omeprazole [PriLOSEC] 40 mg PO DAILY 10/10/17 [History] Gabapentin [Neurontin] 800 mg PO TID 11/23/17 [History] Liraglutide [Victoza 2-Yunier] 1.2 mg SQ DAILY 01/09/18 [History] FLUoxetine HCl [Prozac] 40 mg PO QAM 02/15/18 [History] Sulfamethoxazole/Trimeth DS [Bactrim DS] 1 each PO BID 05/04/18 [History] 3 Allergy/AdvReac Type Severity Reaction Status Date / Time Penicillins Allergy Swelling Verified 11/23/17 12:37 of Lip/Tongue/Throat All Systems: The remainder of the systems were reviewed and are negative Physical Examination Vital Signs: Vital Signs, Last 4 Hours Temp Pulse Resp BP Pulse Ox 05/04/18 08:13 100 14 140/92 99 05/04/18 08:11 96.8 F L 05/04/18 07:30 21 127/82 100 05/04/18 06:00 97 14 129/88 92 Results - Laboratory Findings CBC and BMP: 05/04/18 00:10 05/04/18 09:05 ABG ABG pH 7.34 pH Units (7.32-7.45) 05/04/18 00:30 ABG pCO2 42 mmHg (35-45) 05/04/18 00:30 ABG pO2 95 mmHg (85-104) 05/04/18 00:30 ABG O2 Saturation 97 % (95-98) 05/04/18 00:30 PT/INR, D-dimer PT 13.3 Seconds (9.4-12.1) H 05/04/18 00:10 Abnormal lab findings: Abnormal lab results WBC 18.3 K/mcL (4.3-11.1) H 05/04/18 00:10 RBC 3.17 M/mcL (3.82-4.97) L 05/04/18 00:10 Hgb 9.2 g/dL (11.5-15.4) L 05/04/18 00:10 Hct 27.2 % (35.3-44.9) L 05/04/18 00:10 RDW 15.9 % (11.5-14.5) H 05/04/18 00:10 Plt Count 403 K/mcL (140-400) H 05/04/18 00:10 Neutrophils # 17.9 K/mcL (1.6-8.9) H 05/04/18 00:10 Lymphocytes # 0.2 K/mcL (0.6-4.6) L 05/04/18 00:10 ESR 85 mm/hr (0-15) H 05/04/18 00:10 PT 13.3 Seconds (9.4-12.1) H 05/04/18 00:10 ABG Base Excess -3 mEq/L (-2 to 3) L 05/04/18 00:30 Sodium 134 mEq/L (136-145) L 05/04/18 09:05 Potassium 5.2 mEq/L (3.5-5.1) H 05/04/18 09:05 Carbon Dioxide 22 mEq/L (23-29) L 05/04/18 09:05 BUN 49 mg/dL (6-20) H 05/04/18 09:05 Creatinine 2.01 mg/dL (0.60-1.20) H 05/04/18 09:05 Est GFR ( Amer) 32 (> 60) L 05/04/18 09:05 Est GFR (Non-Af Amer) 27 (> 60) L 05/04/18 09:05 Glucose 256 mg/dL (70-105) H 05/04/18 09:05 POC Glucose 259 mg/dL (70-99) H 05/04/18 07:35 Total Bilirubin 0.2 mg/dL (0.3-1.0) L 05/04/18 01:02 AST 53 Units/L (13-39) H 05/04/18 01:02 Alkaline Phosphatase 154 Units/L (34-104) H 05/04/18 01:02 C-Reactive Protein 288 mg/L (Less than 10) H 05/04/18 01:02 B-Natriuretic Peptide 693 pg/mL (Less than 100) H 05/04/18 09:05 Albumin 3.2 g/dL (3.5-5.7) L 05/04/18 01:02 Globulin 3.8 g/dL (2.4-3.5) H 05/04/18 01:02 Albumin/Globulin Ratio 0.8 (1.1-2.2) L 05/04/18 01:02 Ur Specific [place] 1.026 (1.010-1.025) H 05/04/18 00:01 Urine Protein 100 mg/dL (Neg-Trace) H 05/04/18 00:01 Urine Glucose (UA) >=1000 mg/dL (Normal) H 05/04/18 00:01 Ur Squamous Epith Cells Many per lpf (None-Few) H 05/04/18 00:01 Vancomycin Trough 11 mcg/mL (5-10) H 05/04/18 04:45 - Microbiology Findings Microbiology Findings: Microbiology, Last 48 Hours 05/04/18 00:10 Blood Culture - Preliminary Central Venous Catheter Culture is incubating and being continuously monitored for growth. Final report to follow. - Clinical Findings Intake & Output: Intake & Output 05/03/18 05/04/18 05/04/18 23:59 07:59 15:59 Intake Total 260 / 260 Output Total 550 / 550 500 / 500 150 / 150 Balance -550 / -550 -240 / -240 -150 / -150 Weight 85 kg Consult Discharge Plan - Plan Referrals: Alejandro Le DO [Primary Care Provider] - - Attending Attestation I examined this patient and my medical decision-making was reviewed with the Resident Physician. I agree with the documented findings, disposition and treatment plan as described except to the extent set forth below. We independently had [id number] contact with the patient Patient seen and examined at bedside Labs, radiology, chart personally reviewed. Management was reviewed during multidisciplinary critical care rounds. POLITICAL AIDE: Encephalopathic upon arrival outside hospital she is fully awake and alert at this time we will continue to monitor suspect this is related to sepsis and metabolic derangements including azotemia Pulm: Acute hypoxic respiratory failure secondary to hydrostatic pulmonary edema currently tolerating BiPAP with acceptable oxygenation plan for diuresis as tolerated by kidney function Cards: The pressure stable continue to monitor on telemetry. No evidence of arrhythmia related to hyperkalemia GI: No active issues Nutrition: Nothing by mouth for now Renal: Acute kidney injury likely multifactorial including sepsis and concomitant use of Bactrim improving she has severe hyperkalemia which was treated medically and has improved. May need nephrology consult based upon clinical course. UOP Monitored, Cont to Trend sCr and monitor Electrolytes. ID: Severe sepsis secondary to lower extremity infection/diabetic foot ulcer suspected osteomyelitis infectious disease has been consulted and patient has a history of MRSA bacteremia will continue antimicrobials with plan a de-escalate based upon recommendations. We have also consulted podiatry for possible surgical intervention. [place] cultures pending Heme/Onc: DVT prophylaxis given Endo: Glucose Monitored Integ/MSK: Skin Care per routine ICU Nursing Protocol to prevent ulcers. Lines: All lines examined without evidence of infection : Dispo: Remain in ICU for high risk of further deterioration from a respiratory standpoint CODE: Full <Christiano Bauer N - Last Filed: 05/04/18 13:16> Date of Encounter: 05/04/18 Time of Encounter: 08:44 Assessment and Plan (1) Sepsis Current Visit: No Status: Acute Patient was tachycardic, tachypnic, had an elevated white blood cell count, and a likely source for infection; therefore she meets criteria for sepsis. Sepsis was further complicated by acute kidney injury and respiratory failure Elevated ESR of 85, CRP of 288, and elevated ALP. lactic acid within normal limits She received vancomycin, Merrem, Rocephin, and Zosyn at [facility]. She was started on Levaquin, meropenem, and vancomycin in the ICU at [place]. Blood cultures are pending, she has had MRSA bacteremia in the past CT scan revealed possible abscess Podiatry and infectious disease consults were placed and reviewed. Infectious disease recommends acquiring a chest CT to evaluate the possibility of an underlying respiratory etiology for this patient's current symptoms. Podiatry recommends obtaining a plain film study of the right foot as well as a possible MR in the future if the patient is stable. Antibiotics have been deescalated with the removal of meropenem from patient's antibiotic regimen, currently on levofloxacin and vancomycin. follow-up CPK Follow-up blood cultures and wound cultures Qualifiers: Sepsis type: sepsis due to unspecified organism Qualified Code(s): A41.9 - Sepsis, unspecified organism (2) Osteomyelitis Current Visit: No Status: Chronic Recently treated for osteomyelitis with vancomycin and Bactrim ESR, CRP, and ALP elevated CT from [facility] revealed possible abscess. CT scan and plain film study of right foot reviewed with Dr. Snider, there is a possible collection of gas vs air present on CT, however given unimpressive clinical exam findings it is not certain if her current infection is secondary to the chronic wound. Podiatry consult recommends future MR if possible. Dr. Snider discussed with the patient the possibility of a future below-knee amputation. Qualifiers: Osteomyelitis type: subacute Osteomyelitis location: foot Laterality: right Qualified Code(s): M86.271 - Subacute osteomyelitis, right ankle and foot (3) Respiratory failure Current Visit: Yes Status: Acute Patient has a 20 year smoking history, recently quit. but denies ever requiring BiPAP in the past O2 saturation reportedly deteriorates into the 70s upon removal of BiPAP Lasix 20 mg given for possible fluid overload Qualifiers: Chronicity: acute Respiratory failure complication: hypoxia Qualified Code(s): J96.01 - Acute respiratory failure with hypoxia (4) Hyperkalemia Current Visit: Yes Status: Acute Resolved Most recent BMP revealed a potassium of 5.2 EKG done at 11:51 AM viewed by myself and the attending shows sinus tachycardia at a rate of 103 bpm, PA interval 148, QRS duration 84, QTC 426, with a normal axis. No ST elevation T-wave changes no signs of hyperkalemia, no other signs of ischemia. no hypertrophy heart strain or heart block. No WPW or Brugada. 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 Diabetes mellitus complication status: with skin complications Diabetes mellitus complication detail: with foot ulcer Qualified Code(s): E11.621 - Type 2 diabetes mellitus with foot ulcer; L97.509 - Non-pressure chronic ulcer of other part of unspecified foot with unspecified severity; L97.509 - Non-pressure chronic ulcer of other part of unspecified foot with unspecified severity; L97.509 - Non-pressure chronic ulcer of other part of unspecified foot with unspecified severity; L97.509 - Non-pressure chronic ulcer of other part of unspecified foot with unspecified severity; Z79.4 - retirement (current) use of insulin; 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; 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; Z79.4 - 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 marine terminal (current ) use of insulin (6) Volume depletion Current Visit: No Status: Acute Patient's creatinine is at 2.00, this is above her normal baseline, however she has been elevated during previous hospital admissions Patient received 2 L of fluids [facility], and received fluids in the ICU at [facility] that have since been discontinued Continue to monitor I&O's and labs (7) Acute kidney injury Current Visit: Yes Status: Acute Elevated creatinine in the setting of severe sepsis Patient was also recently being treated with Bactrim Patient received IV fluids at [facility] and on admission that have now been discontinued, she remains nothing by mouth for now Continue to monitor renal function (8) HTN (hypertension) Current Visit: No Status: Chronic Currently holding antihypertensives due to acute kidney injury Qualifiers: Hypertension type: essential hypertension Qualified Code(s): I10 - Essential (primary) hypertension (9) Peripheral neuropathy Current Visit: No Status: Chronic Continue home meds Qualifiers: Peripheral neuropathy type: polyneuropathy, unspecified Qualified Code(s): G62.9 - Polyneuropathy, unspecified (10) Obesity (BMI 30.0-34.9) Current Visit: No Status: Chronic Lifestyle modification (11) DVT prophylaxis Current Visit: Yes Status: Acute Subcutaneous heparin (12) Tobacco abuse Current Visit: Yes Status: Chronic 20 year smoking history. States she quit recently History of Present Illness Consult date: 05/04/18 Requesting physician: Rosana John Reason for consult: other Chief complaint: Trouble waking up, weakness History of present illness: Patient is a 47-year-old female with a history of MRSA bacteremia and osteomyelitis of the right heel for which she has previously undergone a calcanectomy and was recently treated with vancomycin and switched to Bactrim 3 weeks ago. Patient states that she was feeling well until yesterday morning when she experienced "trouble waking up" and feeling alert, and she also states that she was feeling far weaker than usual. This acute change in her status prompted her to visit [facility]. At the hospital she was diagnosed with sepsis and received vancomycin, Merrem, Rocephin, and Zosyn. She was also given 2 L normal saline fluid and transferred to [place] for higher level of care. On transfer she had an elevated white blood cell count of 18.3, was tachypneic with a respiratory rate of 22, and tachycardic with a heart rate of 106. She also had elevated potassium of 6.9. She was treated for her hyperkalemia and placed on broad-spectrum antibiotics including Levaquin, meropenem, and vancomycin. At this time she was also experiencing shortness of breath as well and was placed on BiPAP for respiratory support and has remained on BiPAP overnight in the ICU. CT scan done at [facility] revealed a possible abscess of the right foot. This morning the patient states that she is feeling improved, she is alert and responsive but remains on the BiPAP as her O2 saturation reportedly decreases when she is taken off. This morning she states that she is subjectively improved aside from her breathing, she does not complain of any pain today. Past Med Surg Social Fam HX - Past Medical History Medical history: diabetes, GERD, hypertension Additional medical history: Osteomylitis right heel Psychiatric history: depression - Past Surgical History Surgical History: hysterectomy, other (Right foot I & D, left foot great toe amputation) Additional surgical history: back surgery, b/l foot surgeries, L5S1 disectomy, discogram-2008, amputation left foot, freat toe-2011, right heel x2 - Social History Smoking Status: Current every day smoker Packs per day: 1 Smokeless Tobacco Status: No Alcohol use: none Drug use: none - Family History Sister Hx Family Endocrine Disorder: Yes (Diabetes) Grandfather Hx Family Cardiac Disorders: Yes (Coronary artery disease at age 50) Father Family Member Ethnicity: Non- Living Status: Still Living Hx Family Cardiac Disorders: Yes Hx Family Respiratory Disorders: No Hx Family Cancer: Yes Hx Family GI Disorders: No Hx Family Endocrine Disorder: Yes Hx Family Neuromuscular Disorders: No Hx Family Neurologic Disorders: No Hx Family HEENT Disorders: No Hx Family Autoimmune Disorders: No All Systems: The remainder of the systems were reviewed and are negative - Constitutional Constitutional: other (Awake, alert, weakness has improved) - Cardiovascular Cardiovascular: no chest pain - Respiratory Respiratory: dyspnea - Gastrointestinal Gastrointestinal: no abdominal pain - Genitourinary Genitourinary: no dysuria - Musculoskeletal Musculoskeletal: other (Denies foot pain) - Integumentary Integumentary: other (Wound right heel) - Neurological Neurological: other (Awake, alert) Physical Examination Vital Signs: Vital Signs, Last 4 Hours Temp Pulse Resp BP Pulse Ox 05/04/18 06:00 97 14 129/88 92 05/04/18 05:04 98.8 F 05/04/18 05:00 101 16 148/96 96 05/04/18 04:00 96.7 F L 102 14 118/77 96 05/04/18 03:51 12 125/83 95 General appearance: no acute distress, other (On BiPAP) Eyes: nonicteric ENT: other (On BiPAP) Neck: supple Effort: other (On BiPAP) Auscultation: bilateral: other (Mild mild crackles bilaterally at the bases) Cardiovascular: other (Tachycardic, regular rhythm, no murmurs) Gastrointestinal: normoactive bowel sounds Integumentary: other (Ulcer heel right foot) Extremities: other (Wound right foot) mood appropriate, affect normal Results - Laboratory Findings CBC and BMP: 05/04/18 00:10 05/04/18 12:20 ABG ABG pH 7.34 pH Units (7.32-7.45) 05/04/18 00:30 ABG pCO2 42 mmHg (35-45) 05/04/18 00:30 ABG pO2 95 mmHg (85-104) 05/04/18 00:30 ABG O2 Saturation 97 % (95-98) 05/04/18 00:30 PT/INR, D-dimer PT 13.3 Seconds (9.4-12.1) H 05/04/18 00:10 Abnormal lab findings: Abnormal lab results WBC 18.3 K/mcL (4.3-11.1) H 05/04/18 00:10 RBC 3.17 M/mcL (3.82-4.97) L 05/04/18 00:10 Hgb 9.2 g/dL (11.5-15.4) L 05/04/18 00:10 Hct 27.2 % (35.3-44.9) L 05/04/18 00:10 RDW 15.9 % (11.5-14.5) H 05/04/18 00:10 Plt Count 403 K/mcL (140-400) H 05/04/18 00:10 Neutrophils # 17.9 K/mcL (1.6-8.9) H 05/04/18 00:10 Lymphocytes # 0.2 K/mcL (0.6-4.6) L 05/04/18 00:10 ESR 85 mm/hr (0-15) H 05/04/18 00:10 PT 13.3 Seconds (9.4-12.1) H 05/04/18 00:10 ABG Base Excess -3 mEq/L (-2 to 3) L 05/04/18 00:30 Sodium 135 mEq/L (136-145) L 05/04/18 04:45 Chloride 108 mEq/L (98-107) H 05/04/18 04:45 Carbon Dioxide 18 mEq/L (23-29) L 05/04/18 04:45 BUN 46 mg/dL (6-20) H 05/04/18 04:45 Creatinine 1.95 mg/dL (0.60-1.20) H 05/04/18 04:45 Est GFR ( Amer) 33 (> 60) L 05/04/18 04:45 Est GFR (Non-Af Amer) 27 (> 60) L 05/04/18 04:45 Glucose 199 mg/dL (70-105) H 05/04/18 04:45 POC Glucose 474 mg/dL (70-99) H* 05/03/18 23:22 Calcium 8.3 mg/dL (8.6-10.3) L 05/04/18 04:45 Total Bilirubin 0.2 mg/dL (0.3-1.0) L 05/04/18 01:02 AST 53 Units/L (13-39) H 05/04/18 01:02 Alkaline Phosphatase 154 Units/L (34-104) H 05/04/18 01:02 C-Reactive Protein 288 mg/L (Less than 10) H 05/04/18 01:02 Albumin 3.2 g/dL (3.5-5.7) L 05/04/18 01:02 Globulin 3.8 g/dL (2.4-3.5) H 05/04/18 01:02 Albumin/Globulin Ratio 0.8 (1.1-2.2) L 05/04/18 01:02 Ur Specific [place] 1.026 (1.010-1.025) H 05/04/18 00:01 Urine Protein 100 mg/dL (Neg-Trace) H 05/04/18 00:01 Urine Glucose (UA) >=1000 mg/dL (Normal) H 05/04/18 00:01 Ur Squamous Epith Cells Many per lpf (None-Few) H 05/04/18 00:01 Vancomycin Trough 11 mcg/mL (5-10) H 05/04/18 04:45 - Diagnostic Findings Chest x-ray: report reviewed, image reviewed - Clinical Findings Intake & Output: Intake & Output 05/03/18 05/03/18 05/04/18 15:59 23:59 07:59 Intake Total 260 / 260 Output Total 550 / 550 500 / 500 Balance -550 / -550 -240 / -240 Weight 85 kg
[2018-05-04] MEDS ORDERED: Meropenem 1,000 MG in Water for inj. (sterile) 20 ML 10 ML IVP SCH (08:00)
[2018-05-04] MEDS ORDERED: Furosemide 20 MG/2 ML VIAL IVP ONE (08:02)
[2018-05-04 09:54] LABS: Calcium 9.1 mg/dL (8.6-10.3); Potassium 5.2 mEq/L (3.5-5.1)
[2018-05-04 09:55] LABS: Calcium 9.1 mg/dL (8.6-10.3); Potassium 5.2 mEq/L (3.5-5.1)
[2018-05-04 09:59] LABS: Troponin I 0.07 ng/mL (< 0.04)
--- NOTE | 2018-05-04 11:39 | Infectious Disease Consult ---
Date of Encounter: 05/04/18 Time of Encounter: 11:28 Assessment and Plan (1) Sepsis Status: Acute Assessment and plan: Severe sepsis: The patient had two SIRS criteria plus lactic acidosis and ROGER and AMS. Etiology unclear: osteomyelitis vs. pulmonary vs. other. Improved. WBC trending down. Tachycardia persists. Lactic acidosis resolved. ROGER improved. Blood cultures drawn 05/03/18 at [facility] are pending x 2 sets. Additional blood cultures drawn 05/04/18 at [facility] are pending x 2 sets. Qualifiers: Sepsis type: sepsis due to unspecified organism Qualified Code(s): A41.9 - Sepsis, unspecified organism (2) Respiratory failure Status: Acute Assessment and plan: Etiology unclear: pulmonary edema vs. infectious vs. other. CXR completed 05/04/18 showed diffuse interstital prominence and possible hazy uniform airspace disease bilaterally that could reflect pulmonary edema vs. viral process vs. diffuse airway inflammation. The patient denies respiratory symptoms prior to receiving 2 liters of IV fluids in the ER. No URI symptoms. Pulmonology consulted and following. Diuresis and O2 per the pulmonology team. Check RIP. Check procalcitonin level. Consider CT chest to evaluate further. Continue antibiotics as above. Qualifiers: Chronicity: acute Respiratory failure complication: hypoxia Qualified Code(s): J96.01 - Acute respiratory failure with hypoxia (3) Osteomyelitis Status: Chronic Assessment and plan: Chronic osteomyelitis of the right calcaneus, right cuboid, and right navicular. Previous causative organisms include MRSA and Strep mitis. Most recently treated in January/ with 9 weeks of IV vancomycin. Transitioned to PO Bactrim 04/25/18. Clinically, the wound looks great. ESR is improved. CRP is worse. CT scan done at [facility] showed erosive changes of the talus and navicular and possible phlegmon/abscess. Podiatry consulted. Await recommendations. Check CK level. Wound care and activity per the Podiatry team. Qualifiers: Osteomyelitis type: subacute Osteomyelitis location: foot Laterality: right Qualified Code(s): M86.271 - Subacute osteomyelitis, right ankle and foot (4) Acute kidney injury Status: Resolved Assessment and plan: Likely secondary to sepsis. Improved. Continue to trend. Dose-adjust antibiotics. Avoid additional nephrotoxins. (5) Lactic acidosis Status: Acute Assessment and plan: Likely secondary to sepsis. Resolved. (6) Nonhealing surgical wound Status: Acute Assessment and plan: Wound care per the podiatry team. Qualifiers: Encounter type: subsequent encounter Qualified Code(s): T81.89XD - Other complications of procedures, not elsewhere classified, subsequent encounter (7) Bacteremia Status: Resolved Assessment and plan: Recurrent MRSA bacteremia. Source not clear, but concern that the foot was the source due to recurrence despite adequate IV antibiotics. Blood cultures drawn 01/08/18 were positive 2/2 sets for MRSA. Repeat blood cultures drawn 01/09/18 x2 sets were negative. ELYSE negative. Treated with 14 days of IV Vancomycin. Repeat blood cultures 02/14/18 were positive 2/2 sets for MRSA. Status post I & D of the right calcaneus 02/16/18. Cultures were negative. Repeat blood cultures drawn 02/18/18 were negative. ELYSE deferred. Treated with 9 weeks of IV antibiotics. (8) Diabetes mellitus Status: Chronic Assessment and plan: HgbA1C 7.9% in October. Blood sugars very high on admission--> ? DKA Recommend aggressive glucose monitoring and control to promote wound healing and prevent re-infection Management per the primary team. Qualifiers: Diabetes mellitus type: type 2 Diabetes mellitus intermediate insulin use: with intermediate use Diabetes mellitus complication status: with skin complications Diabetes mellitus complication detail: with foot ulcer Qualified Code(s): E11.621 - Type 2 diabetes mellitus with foot ulcer; L97.509 - Non-pressure chronic ulcer of other part of unspecified foot with unspecified severity; L97.509 - Non-pressure chronic ulcer of other part of unspecified foot with unspecified severity; L97.509 - Non-pressure chronic ulcer of other part of unspecified foot with unspecified severity; L97.509 - Non-pressure chronic ulcer of other part of unspecified foot with unspecified severity; 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 Larson is a 47 year old female with a past medical history of MRSA bacteremia, hypertension, hyperlipidemia, uncontrolled diabetes, and osteomyelitis of the right foot. The patient was admitted to the hospital May 03 for severe sepsis. We are consulted May 04 for further recommendations for severe sepsis. Briefly, the patient's a 47-year-old female with a past medical history as stated above. The patient is well-known to the infectious disease service as we have been called to her case multiple times and she has been following up with us in the outpatient setting. The patient has a chronic nonhealing ulcer to the right heel that has been ongoing since July 2017 after she underwent a right toe graft placement that required offloading onto the heel. The patient has had multiple surgical procedures on the right foot. Back in December, she was noted to have generalized malaise and fatigue and tachycardia. She will watch drawn that revealed MRSA bacteremia 2 out of 2 sets and leukocytosis. She was admitted to the hospital and repeat blood cultures were obtained prior to the initiation of antibiotic therapy that were negative. The source of the infection was unclear at that point because the foot appeared to be doing well and she had no evidence of acute infection. She was evaluated by podiatry at that time who agreed the foot did not appear to be infected and no further surgical intervention was done. She did ELYSE that was negative. She completed a total of 14 days of IV Vanco. She followed up with us in the ID clinic and she was doing well. She had repeat blood cultures drawn February 14 that came back positive again 2 out of 2 sets for MRSA. Repeat imaging showed chronic osteomyelitis of the calcaneus with large adjacent ulceration extending to the underlying bone that appeared grossly similar to previous exams as well as cortical erosive change of the calcaneal cuboid articulation and adjacent inferior aspect of the navicular, also compatible with osteomyelitis. She did. Repeat blood cultures were negative. Podiatry was consult and she was taken back to the operating room on February 19 for calcanectomy and graft placement by Dr. Snider. She was discharged home to complete a six-week course of IV vancomycin. She continued to have delayed wound healing and elevated inflammatory markers, but no evidence of acute infection. She completed about 9 weeks of IV antibiotics and was transitioned to oral Bactrim back on April 25. She states she was doing well until yesterday when she had sudden onset of severe generalized weakness. She states she slept all morning until her got home about 1:30PM. She states she attempted to get off the couch, but was unable to stand so her called the squad. She was transported to [facility] emergency department for evaluation. Upon arrival there, the patient was tachycardic and had leukocytosis with neutrophilic predominance. She was also noted to be hypoxic with a documented SPO2 of 67%. Additional labs revealed lactic acidosis and acute kidney injury and hyperglycemia. Urine drug screen was positive for her prescribed benzodiazepines and TCA. Blood alcohol was negative. She received 2 L of normal saline, vancomycin, meropenem, Rocephin, and Zosyn. She had a CT of the foot that showed erosive changes of the talus and navicular as well as possible phlegmon/abscess. [facility] has CT of the head that was negative. She was transferred here for further evaluation and placed in the intensive care unit. Since admission, the patient has been hypothermic and tachycardic. She has required BiPAP to maintain adequate oxygen saturations. Her white blood cell count has improved. Serum creatinine is trending down. Lactic acid has normalized. CRP was 288 with an ESR of 85. Blood cultures were obtained [facility]. I did culture my care lab and they are still pending. Repeat blood cultures were obtained once the patient was here. Urinalysis was negative. hest x-ray was completed that showed possible pulmonary edema versus viral process versus inflammation, but no pneumonia. She was started on IV vancomycin , Levaquin, and received a one-time dose of IV meropenem. She has required BIPAP to maintain adequate O2 sats. The podiatry and pulmonary teams have been consulted. We have been asked to evaluate and make further recommendations. My exam today, patient endorses a history as stated above. She states she was in her usual state of health until yesterday when she had sudden onset of generalized weakness. She denies any fevers or chills or rigors. She denies any headache or neck pain. She denies any congestion, earache, or sore throat. She denies any chest pain, shortness of breath, or cough. She denies any nausea, vomiting, diarrhea, or constipation. She denies any abdominal pain or urinary complaints and states she feels a little hungry this morning. She states that her blood sugars have been relatively well controlled until 2 days ago when the shot up suddenly. She saw Dr. Snider on the wound clinic on Monday and he was very happy with how her foot looked. She denies any known regression or discharge or foul odor of the wound. She denies any redness or streaking up the leg. She denies any pain at the site. She denies any joint or back pain. She does report that she fell off her scooter a few days ago and has a scabbed lesion to the left knee. She denies any oral thrush or other skin lesions. The patient lives at home with her . She does not work outside the home. She smokes about half pack of cigarettes per day. She denies any alcohol or illicit drug use. She denies any chronic infectious issues such as HIV, tuberculosis, or hepatitis. She denies recent travel outside the [facility]. CC: Prabha Harrison MD Past Med Surg Social Fam HX - Past Medical History Attestation: Yes The following information was validated with the patient. Source: patient, old records reviewed, nursing notes reviewed Medical history: diabetes, GERD, hypertension Additional medical history: Osteomylitis right heel Psychiatric history: depression - Past Surgical History Surgical History: hysterectomy, other (Right foot I & D, left foot great toe amputation) Additional surgical history: back surgery, b/l foot surgeries, L5S1 disectomy, discogram-2008, amputation left foot, freat toe-2011, right heel x2 - Social History Smoking Status: Current every day smoker Packs per day: 1 Smokeless Tobacco Status: No Alcohol use: none Drug use: none Occupational status: unemployed Current living situation: Home - Independent Activity Level: Uses cane/walker Recent Out of Country Travel Within the Last 8 Weeks: No Exposure or Possible Exposure to Illness During Travel: No - Family History Sister Hx Family Endocrine Disorder: Yes (Diabetes) Grandfather Hx Family Cardiac Disorders: Yes (Coronary artery disease at age 50) Father Family Member Ethnicity: Non- Living Status: Still Living Hx Family Cardiac Disorders: Yes Hx Family Respiratory Disorders: No Hx Family Cancer: Yes Hx Family GI Disorders: No Hx Family Endocrine Disorder: Yes Hx Family Neuromuscular Disorders: No Hx Family Neurologic Disorders: No Hx Family HEENT Disorders: No Hx Family Autoimmune Disorders: No Infectious Disease-CN:Meds Atorvastatin [Lipitor] 20 mg PO QPM 06/11/15 [History] Cholecalciferol (Vitamin D3) [Vitamin D3] 10,000 unit PO WE 06/11/15 [History] Ibuprofen [Motrin] 800 mg PO TID PRN 06/11/15 [History] Insulin ASPART [NovoLOG] 0 - 12 unit SQ TID PRN 06/11/15 [History] Insulin Glargine,Hum.rec.anlog [Lantus Solostar] 35 units SQ QPM 06/11/15 [ History] Quetiapine Fumarate [Seroquel] 100 mg PO HS 06/11/15 [History] Aspirin [Lo-Dose Aspirin EC] 81 mg PO DAILY 10/10/17 [History] Lisinopril-HCTZ 20-12.5 [Prinzide 20-12.5] 1 tab PO DAILY 10/10/17 [History] Omeprazole [PriLOSEC] 40 mg PO DAILY 10/10/17 [History] Gabapentin [Neurontin] 800 mg PO TID 11/23/17 [History] Liraglutide [Victoza 2-Yunier] 1.2 mg SQ DAILY 01/09/18 [History] FLUoxetine HCl [Prozac] 40 mg PO QAM 02/15/18 [History] Sulfamethoxazole/Trimeth DS [Bactrim DS] 1 each PO BID 05/04/18 [History] 3 Allergy/AdvReac Type Severity Reaction Status Date / Time Penicillins Allergy Swelling Verified 11/23/17 12:37 of Lip/Tongue/Throat All systems: reviewed and no additional remarkable complaints except as stated Exam - Constitutional Vitals: Temp Pulse Resp BP Pulse Ox 96.8 F L 94 14 120/97 96 05/04/18 08:11 05/04/18 10:11 05/04/18 11:16 05/04/18 11:16 05/04/18 11:16 General appearance: average body habitus, cooperative, no acute distress - Head Head exam: Present: atraumatic, normal inspection, normocephalic - Eye Eye exam: Present: EOMI, normal appearance, PERRL Pupils: Present: normal accommodation Additional comments: No subconjunctival hemorrhage noted. - ENT ENT exam: Present: mucous membranes moist - Neck Neck exam: Present: normal inspection - Respiratory Respiratory exam: Present: CTAB. Absent: rales, respiratory distress, rhonchi - Cardiovascular Cardiovascular exam: Present: +S1, +S2, tachycardia. Absent: irregular rhythm - GI/Abdominal GI/Abdominal exam: Present: normal bowel sounds, soft. Absent: distended, tenderness Additional comments: Kraft catheter noted to be draining clear yellow urine. - Extremities Exam Extremities exam: Absent: joint swelling, pedal edema, tenderness Additional comments: Left heel ulcer with 100% granulation tissue. Wound edges slightly macerated. No erythema, warmth, fluctuance, or drainage noted. - Back Exam Back exam: Present: normal inspection. Absent: CVA tenderness (L), CVA tenderness (R), paraspinal tenderness, vertebral tenderness - Neurological Exam Neurological exam: Present: alert, oriented X3, no focal deficits - Psychiatric Psychiatric exam: Present: normal affect, normal mood - Skin Skin exam: Present: dry, intact, normal color, warm Infectious Disease CN: Results - Labs CBC & Chem 7: 05/07/18 03:33 05/07/18 03:33 Cultures: Cultures 05/04/18 00:40 Blood Culture - Preliminary Peripheral Venipuncture Culture is incubating and being continuously monitored for growth. Final report to follow. 05/04/18 00:10 Blood Culture - Preliminary Central Venous Catheter Culture is incubating and being continuously monitored for growth. Final report to follow. Serology: Serology 05/04/18 Range/Units 00:01 Urine Color Yellow (Yellow) Urine Clarity Clear (Clear) Urine pH 6.0 (5.0-8.0) pH Units Ur Specific [place] 1.026 H (1.010-1.025) Urine Protein 100 H (Neg-Trace) mg/dL Urine Glucose (UA) >=1000 H (Normal) mg/dL Urine Ketones Negative (Negative) mg/dL Urine Blood Negative (Negative) Urine Nitrite Negative (Negative) Urine Bilirubin Negative (Negative) Urine Urobilinogen Normal (Normal) mg/dL Ur Leukocyte Esterase Negative (Negative) Urine Microscopic RBC 0-3 (0-3) per hpf Urine Microscopic WBC 0-3 (0-3) per hpf Ur Squamous Epith Cells Many H (None-Few) per lpf Urine Bacteria None Seen (None-Few) per hpf Hyaline Casts None Seen (None-Few) per lpf Consult Discharge Plan - Plan Referrals: Alejandro Le, [Primary Care Provider] - - Attending Attestation I examined this patient and my medical decision-making was reviewed with the Resident Physician. I agree with the documented findings, disposition and treatment plan as described except to the extent set forth below. This is an addedum to original note dictated by Danielle Ovalle CNP. please refer to her note for full details. patient is well known to our service with extensive PMH mentioned below was in the usual state of health when she got acute ill and was having fatigue, somnolence, weakness and unable to even stand. patient was brought into the ED and was admitted to the ICU with severe sepsis and acute respiratory failure and possible DKA. Patient was started on broad spectrum antibiotics and extensive work up reveals sepsis like picture but with no obvious source. Her foot wound appears stable with pink viable tissue at the bases with sharp edges without drainae, cellulitis, foul smelling or visible bone. Currently she is awake alert and oriented. continues to be on cpap but denies any specific complaints. A/P: severe sepsis DKA? Acute respiratory failure with CT showing intrestitial pulmonary process concerning for atypical pneumonia vs ARDSvs pulmonary edema. RIP negative pulmonary nodules scattered in both lungs etiology not clear Tracheal lesion acute kidney injury likely due to severe sepsis DM type 2 poorly controlled PCN allergies source not clear - abdominal process vs recurrent bacteremia vs foot infection ( less likely)? agree with vancomycin and levaquin if no improvement, consider adding aztreonam check urine legioneall and pneumococal antigen will d/w pulmonary to see if bronch is warranted might consider adding fungal serology including fungitell, galactomannan, crypto and histo antigen
[2018-05-04 13:15] LABS: Calcium 9.1 mg/dL (8.6-10.3); Potassium 5.1 mEq/L (3.5-5.1)
[2018-05-04] MEDS: Insulin LISPRO 300 UNITS/3 ML VIAL SQ SCH ×4 (15:26→23:22)
[2018-05-04 15:41] LABS: Adenovirus Not Detected (Not Detect); Bordetella Pertussis Not Detected (Not Detect); Chlamydophila pneumoniae Not Detected (Not Detect); Coronavirus 229E Not Detected (Not Detect); Coronavirus HKU1 Not Detected (Not Detect); Coronavirus NL63 Not Detected (Not Detect); Coronavirus OC43 Not Detected (Not Detect); Human Metapneumovirus Not Detected (Not Detect); Human Rhinovirus/Enterovirus Not Detected (Not Detect); Influenza A Subtype 2009 H1 Not Detected (Not Detect); Influenza A Untypeable Not Detected (Not Detect); Influenza B Not Detected (Not Detect); Mycoplasma pneumoniae Not Detected (Not Detect); Parainfluenza Virus 1 Not Detected (Not Detect); Parainfluenza Virus 2 Not Detected (Not Detect); Parainfluenza Virus 3 Not Detected (Not Detect); Parainfluenza Virus 4 Not Detected (Not Detect); Respiratory Syncytial Virus Not Detected (Not Detect)
[2018-05-04 16:45] LABS: ABG Base Excess -2 mEq/L (-2 to 3); ABG HCO3 25 mEq/L (21-27); ABG Oxygen Saturation 93 % (95-98); ABG PCO2 48 mmHg (35-45); ABG PH 7.32 pH Units (7.32-7.45); ABG PO2 73 mmHg (85-104); ABG TCO2 26 mEq/L (20-26)
--- NOTE | 2018-05-04 16:56 | Podiatry Consult Note ---
Date of Encounter: 05/04/18 Time of Encounter: 12:30 Assessment and Plan (1) Nonhealing surgical wound Current visit: No Status: Acute Assessment: #1 patient with a slow to heal surgical wound right calcaneus. #2 there is no clinical evidence of active infection of the right foot. No fluctuance no odor no purulence no edema no erythema no warmth no necrosis no lymphangitis no cellulitis no exudate. Wound edges are attached no undermining no sinus tract no tunneling. Plan: #1 continue intravenous antibiotics per recommendation of infectious disease service #2 local wound care presently with strict offloading of the wound in bed #3 cleanse right foot with mild soap and warm water apply Adaptic 4 x 4's and Medipore tape daily #4 consider reinstitution wound VAC once patient has stabilized and is medically optimized. #5 discussion of possibility of below-knee amputation versus continuation of long and arduous wound healing course was no guarantee that the limb would be salvageable. Qualifiers: Encounter type: subsequent encounter Qualified Code(s): T81.89XD - Other complications of procedures, not elsewhere classified, subsequent encounter History of Present Illness Chief complaint: Chronic ulcer right foot with osteomyelitis HPI: Ms. Larson is a 47 year old female transferred from [facility] with the last 24 hours for sepsis and likely pneumonia and pulmonary edema. She has a long history of a wound to her right foot. I was asked to see her in consultation in October/November of this year with an ongoing active osteomyelitis of the right calcaneus. Patient had undergone multiple surgical adventures for this persistent ongoing wound of right calcaneus/heel. She underwent a subtotal calcanectomy with bone biopsy and cultures was placed on 9 + weeks of intravenous antibiotics for history of MRSA of the wound and bone. She is undergone placement of cadaveric graft to cover the exposed bone and a wound VAC which subsequently was successful in creating a granular wound bed with edges are actually attached around the wound. Unfortunately overall she has regressed. On examination at bedside we do not appreciate any abscess formation phlegmon cellulitis lymphangitis odor purulence or necrosis. The wound essentially is unchanged from last time I had the opportunity to examine her which was approximately 10 days ago. The foot is not warm nor any clinical evidence of active infection/abscess. It is likely that the osteomyelitis, of the hindfoot is chronic at this point. The best possible outcome of the soft tissue envelope to eventually heal she can be placed in a patellar weightbearing custom AFO and extra-depth shoes to allow her to have a functional limb. Otherwise below-knee amputation may be her best option. We will postpone any specific recommendation for below-knee amputation at this time until she has been medically optimized. Past Med Surg Social Fam HX - Past Medical History Medical history: diabetes, GERD, hypertension Additional medical history: Osteomylitis right heel Psychiatric history: depression - Past Surgical History Surgical History: hysterectomy, other (Right foot I & D, left foot great toe amputation) Additional surgical history: back surgery, b/l foot surgeries, L5S1 disectomy, discogram-2008, amputation left foot, freat toe-2011, right heel x2 - Social History Smoking Status: Current every day smoker Packs per day: 1 Smokeless Tobacco Status: No Alcohol use: none Drug use: none - Family History Sister Hx Family Endocrine Disorder: Yes (Diabetes) Grandfather Hx Family Cardiac Disorders: Yes (Coronary artery disease at age 50) Father Family Member Ethnicity: Non- Living Status: Still Living Hx Family Cardiac Disorders: Yes Hx Family Respiratory Disorders: No Hx Family Cancer: Yes Hx Family GI Disorders: No Hx Family Endocrine Disorder: Yes Hx Family Neuromuscular Disorders: No Hx Family Neurologic Disorders: No Hx Family HEENT Disorders: No Hx Family Autoimmune Disorders: No Medications and Allergies Atorvastatin [Lipitor] 20 mg PO QPM 06/11/15 [History] Cholecalciferol (Vitamin D3) [Vitamin D3] 10,000 unit PO WE 06/11/15 [History] Ibuprofen [Motrin] 800 mg PO TID PRN 06/11/15 [History] Insulin ASPART [NovoLOG] 0 - 12 unit SQ TID PRN 06/11/15 [History] Insulin Glargine,Hum.rec.anlog [Lantus Solostar] 35 units SQ QPM 06/11/15 [ History] Quetiapine Fumarate [Seroquel] 100 mg PO HS 06/11/15 [History] Aspirin [Lo-Dose Aspirin EC] 81 mg PO DAILY 10/10/17 [History] Lisinopril-HCTZ 20-12.5 [Prinzide 20-12.5] 1 tab PO DAILY 10/10/17 [History] Omeprazole [PriLOSEC] 40 mg PO DAILY 10/10/17 [History] Gabapentin [Neurontin] 800 mg PO TID 11/23/17 [History] Liraglutide [Victoza 2-Yunier] 1.2 mg SQ DAILY 01/09/18 [History] FLUoxetine HCl [Prozac] 40 mg PO QAM 02/15/18 [History] Sulfamethoxazole/Trimeth DS [Bactrim DS] 1 each PO BID 05/04/18 [History] 3 Allergy/AdvReac Type Severity Reaction Status Date / Time Penicillins Allergy Swelling Verified 11/23/17 12:37 of Lip/Tongue/Throat ROS unobtainable: other (Presently on BiPAP) All Systems Reviewed: The remainder of the systems were reviewed and are negative Physical Exam - Constitutional Vitals: Temp Pulse Resp BP Pulse Ox 97.7 F 107 13 131/80 92 05/04/18 13:12 05/04/18 16:00 05/04/18 16:00 05/04/18 16:00 05/04/18 16:00 General appearance: average body habitus, cooperative, no acute distress - Expanded Lower Extremities Exam Foot/Toe exam: Present: swelling (Ulcer posterior lateral aspect of the right calcaneus. No undermining sinus tract tunneling. No fluctuance no odor necrosis) Neuro vascular tendon exam: Present: abnormal 2-point discrimination (Patient has loss of protective sensation, epicritic sensation from toes to tibia bilaterally secondary to diabetes.), decreased fine/light touch, no vascular compromise Results - Labs Result Diagrams: 05/04/18 00:10 05/04/18 12:20 Labs: Abnormal lab results WBC 18.3 K/mcL (4.3-11.1) H 05/04/18 00:10 RBC 3.17 M/mcL (3.82-4.97) L 05/04/18 00:10 Hgb 9.2 g/dL (11.5-15.4) L 05/04/18 00:10 Hct 27.2 % (35.3-44.9) L 05/04/18 00:10 RDW 15.9 % (11.5-14.5) H 05/04/18 00:10 Plt Count 403 K/mcL (140-400) H 05/04/18 00:10 Neutrophils # 17.9 K/mcL (1.6-8.9) H 05/04/18 00:10 Lymphocytes # 0.2 K/mcL (0.6-4.6) L 05/04/18 00:10 ESR 85 mm/hr (0-15) H 05/04/18 00:10 PT 13.3 Seconds (9.4-12.1) H 05/04/18 00:10 ABG pCO2 48 mmHg (35-45) H 05/04/18 16:42 ABG pO2 73 mmHg (85-104) L 05/04/18 16:42 ABG O2 Saturation 93 % (95-98) L 05/04/18 16:42 Sodium 134 mEq/L (136-145) L 05/04/18 12:20 Carbon Dioxide 20 mEq/L (23-29) L 05/04/18 12:20 BUN 53 mg/dL (6-20) H 05/04/18 12:20 Creatinine 2.20 mg/dL (0.60-1.20) H 05/04/18 12:20 Est GFR ( Amer) 29 (> 60) L 05/04/18 12:20 Est GFR (Non-Af Amer) 24 (> 60) L 05/04/18 12:20 Glucose 204 mg/dL (70-105) H 05/04/18 12:20 POC Glucose 181 mg/dL (70-99) H 05/04/18 16:18 Total Bilirubin 0.2 mg/dL (0.3-1.0) L 05/04/18 01:02 AST 53 Units/L (13-39) H 05/04/18 01:02 Alkaline Phosphatase 154 Units/L (34-104) H 05/04/18 01:02 Troponin I 0.07 ng/mL (< 0.04) H* 05/04/18 09:05 C-Reactive Protein 288 mg/L (Less than 10) H 05/04/18 01:02 B-Natriuretic Peptide 693 pg/mL (Less than 100) H 05/04/18 09:05 Albumin 3.2 g/dL (3.5-5.7) L 05/04/18 01:02 Globulin 3.8 g/dL (2.4-3.5) H 05/04/18 01:02 Albumin/Globulin Ratio 0.8 (1.1-2.2) L 05/04/18 01:02 Beta-Hydroxybutyric Acd 0.34 mmol/L (0.02-0.27) H 05/04/18 09:05 Ur Specific [place] 1.026 (1.010-1.025) H 05/04/18 00:01 Urine Protein 100 mg/dL (Neg-Trace) H 05/04/18 00:01 Urine Glucose (UA) >=1000 mg/dL (Normal) H 05/04/18 00:01 Ur Squamous Epith Cells Many per lpf (None-Few) H 05/04/18 00:01 Vancomycin Trough 11 mcg/mL (5-10) H 05/04/18 04:45 H & H 05/04/18 Range/Units 00:10 Hgb 9.2 L (11.5-15.4) g/dL Hct 27.2 L (35.3-44.9) % All other labs normal. Consult Discharge Plan - Plan Referrals: Alejandro Le DO [Primary Care Provider] -
[2018-05-04 17:08] LABS: Potassium 4.9 mEq/L (3.5-5.1)
--- NOTE | 2018-05-04 17:48 | Electrocardiograph Report ---
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
[2018-05-04 18:44] LABS: Estimated Average Glucose 258 mg/dl; Hemoglobin A1C 10.6 %
[2018-05-04] MEDS ORDERED: Insulin DETEMIR 100 UNIT/ML X5UNITS SQ SCH ×2 (21:00→21:31)
[2018-05-04] MEDS: D5% in 0.9% NACL 500 ML IVC SCH (22:42)
[2018-05-04] MEDS: Insulin DETEMIR 100 UNIT/ML X5UNITS SQ SCH (23:22)
[2018-05-04 23:23] LABS: Calcium 9.1 mg/dL (8.6-10.3); Potassium 4.3 mEq/L (3.5-5.1)
[2018-05-05] MEDS: Ipratropium/Albuterol Neb 3 ML IH SCH ×6 (00:40→19:45)
[2018-05-05] MEDS: *HR* Heparin 5,000 UNIT/ML VIAL SQ SCH ×2 (04:28→16:46)
[2018-05-05] MEDS: D5% in 0.9% NACL 500 ML IVC SCH ×2 (04:29→16:39)
[2018-05-05] MEDS: Insulin LISPRO 300 UNITS/3 ML VIAL SQ SCH ×5 (04:29→20:38)
[2018-05-05] MEDS: Acetaminophen 325 MG TABLET PO PRN ×3 (04:30→16:45)
[2018-05-05 04:54] LABS: BUN/Creatinine Ratio 28 (6-26); Blood Urea Nitrogen 46 mg/dL (6-20); Calcium 8.9 mg/dL (8.6-10.3); Carbon Dioxide 23 mEq/L (23-29); Chloride 107 mEq/L (98-107); Glucose 111 mg/dL (70-105); Osmolality,Calculated 301 (280-300); Sodium 139 mEq/L (136-145); eGFR For African Americans 40 (> 60); eGFR For Non-African Americans 33 (> 60)
[2018-05-05 05:20] LABS: ABG Base Excess 1 mEq/L (-2 to 3); ABG HCO3 27 mEq/L (21-27); ABG Oxygen Saturation 93 % (95-98); ABG PCO2 47 mmHg (35-45); ABG PH 7.36 pH Units (7.32-7.45); ABG PO2 72 mmHg (85-104); ABG TCO2 28 mEq/L (20-26)
--- NOTE | 2018-05-05 06:45 | Pulmonology Progress Note ---
<Christiano Bauer N - Last Filed: 05/05/18 09:58> Date of Encounter: 05/05/18 Time of Encounter: 06:38 Assessment and Plan (1) Sepsis Current Visit: Yes Status: Acute Patient is afebrile but remains tachycardic and on BiPAP CBC from this morning reveals a white blood cell count of 18.6 with neutrophilic predominance Blood and wound cultures are still pending She is currently on levofloxacin 750 mg and vancomycin chest x-ray findings indicate possible atypical pneumonia or interstitial pulmonary edema Chest CT from yesterday reveals "a diffuse primarily interstitial pulmonary process, considerations including an atypical viral pneumonia versus developing ARDS versus noncardiogenic pulmonary edema versus acute interstitial pneumonitis " Of note patient states that the day prior to her acute respiratory decompensation she was using cleaning solutions that may have contributed to her current respiratory status. There is possible question of inhalation injury secondary to the cleaning products. Qualifiers: Sepsis type: sepsis due to unspecified organism Qualified Code(s): A41.9 - Sepsis, unspecified organism (2) Osteomyelitis Current Visit: No Status: Chronic Known history of osteomyelitis of the right foot Recently treated with vancomycin and Bactrim ESR, CRP, and ALP elevated There is a questionable abscess found on CT scan, however given unimpressive clinical exam findings it is not certain if there is an active osteomyelitis present Qualifiers: Osteomyelitis type: subacute Osteomyelitis location: foot Laterality: right Qualified Code(s): M86.271 - Subacute osteomyelitis, right ankle and foot (3) Respiratory failure Current Visit: Yes Status: Acute Patient remains on BiPAP, this morning she was saturating around 90-92% on BiPAP. ABG from yesterday showed a pH of 7.36 and a PCO2 of 47. Patient states that the day prior to her respiratory decompensation she was using cleaning products which she may have inhaled and thus may have contributed to her current respiratory condition. CT scan of the chest taken yesterday reveals a diffuse primarily interstitial pulmonary process which may be secondary to an atypical viral pneumonia versus developing ARDS versus noncardiogenic pulmonary edema versus an acute interstitial pneumonitis. We will continue to diligently monitor patient's status to assess need for possible future intubation if she desaturates on BiPAP. 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 animal exterminator insulin use: with alf use Diabetes mellitus complication status: with skin complications Diabetes mellitus complication detail: with foot ulcer Qualified Code(s): E11.621 - Type 2 diabetes mellitus with foot ulcer; L97.509 - Non-pressure chronic ulcer of other part of unspecified foot with unspecified severity; L97.509 - Non-pressure chronic ulcer of other part of unspecified foot with unspecified severity; L97.509 - Non-pressure chronic ulcer of other part of unspecified foot with unspecified severity; L97.509 - Non-pressure chronic ulcer of other part of unspecified foot with unspecified severity; Z79.4 - predatory animal exterminator (current) use of insulin; Z79.4 - predatory animal exterminator (current) use of insulin; Z79.4 - predatory animal exterminator (current) use of insulin; Z79.4 - senior living (current ) use of insulin (6) Acute kidney injury Current Visit: Yes Status: Acute ROGER in the setting of sepsis and recent Bactrim use Creatinine is trending down, most recent reading was 1.66 Continue to monitor (7) HTN (hypertension) Current Visit: No Status: Chronic Blood pressure readings have been within normal ranges Currently not on antihypertensives Qualifiers: Hypertension type: essential hypertension Qualified Code(s): I10 - Essential (primary) hypertension (8) Peripheral neuropathy Current Visit: No Status: Chronic not on home meds Qualifiers: Peripheral neuropathy type: polyneuropathy, unspecified Qualified Code(s): G62.9 - Polyneuropathy, unspecified (9) Obesity (BMI 30.0-34.9) Current Visit: No Status: Chronic Lifestyle modifications (10) DVT prophylaxis Current Visit: Yes Status: Acute Subcutaneous heparin (11) Tobacco abuse Current Visit: Yes Status: Chronic Patient states that she quit recently Prior 20 pack smoking history (12) Volume depletion Current Visit: No Status: Acute Monitor I&O's and labs Subjective Principal diagnosis: Sepsis, respiratory failure Interval history: Patient seen and examined this morning at bedside with attending present. Upon further collection of the history patient states that the day before her presentation to the hospital she was cleaning with chemicals and believes that inhalation of those chemicals may have contributed to her current respiratory status. Today she continues to have shortness of breath and remains on BiPAP, but she denies any fevers, chills, night sweats, chest pain, abdominal pain, nausea, vomiting, or diarrhea. She denies any pain and states that she feels subjectively improved overall. Objective PUL Vital signs: Last Vital Signs Temp 97.1 F L 05/05/18 04:20 Pulse 109 05/05/18 06:00 Resp 20 05/05/18 06:00 BP 104/63 05/05/18 06:00 Pulse Ox 90 05/05/18 06:00 General appearance: no acute distress, other (Awake, alert, BiPAP is in place) Eyes: nonicteric Neck: supple Effort: other (On BiPAP) Auscultation: bilateral: other (Mild bilateral crackles at the bases bilaterally ) Cardiovascular: regular rate and rhythm Gastrointestinal: normoactive bowel sounds, soft, non-tender, non-distended Integumentary: other (Ulcer right foot) Extremities: other (Wound right foot) Musculoskeletal: other (Calcanectomy of the right foot) normal mental status mood appropriate, affect normal Results - Laboratory Findings CBC and BMP: 05/05/18 04:07 05/05/18 04:07 ABG ABG pH 7.36 pH Units (7.32-7.45) 05/05/18 05:15 ABG pCO2 47 mmHg (35-45) H 05/05/18 05:15 ABG pO2 72 mmHg (85-104) L 05/05/18 05:15 ABG O2 Saturation 93 % (95-98) L 05/05/18 05:15 PT/INR, D-dimer PT 13.3 Seconds (9.4-12.1) H 05/04/18 00:10 Abnormal lab findings: Abnormal lab results WBC 18.3 K/mcL (4.3-11.1) H 05/04/18 00:10 RBC 3.17 M/mcL (3.82-4.97) L 05/04/18 00:10 Hgb 9.2 g/dL (11.5-15.4) L 05/04/18 00:10 Hct 27.2 % (35.3-44.9) L 05/04/18 00:10 RDW 15.9 % (11.5-14.5) H 05/04/18 00:10 Plt Count 403 K/mcL (140-400) H 05/04/18 00:10 Neutrophils # 17.9 K/mcL (1.6-8.9) H 05/04/18 00:10 Lymphocytes # 0.2 K/mcL (0.6-4.6) L 05/04/18 00:10 ESR 85 mm/hr (0-15) H 05/04/18 00:10 PT 13.3 Seconds (9.4-12.1) H 05/04/18 00:10 ABG pCO2 47 mmHg (35-45) H 05/05/18 05:15 ABG pO2 72 mmHg (85-104) L 05/05/18 05:15 ABG Total CO2 28 mEq/L (20-26) H 05/05/18 05:15 ABG O2 Saturation 93 % (95-98) L 05/05/18 05:15 BUN 46 mg/dL (6-20) H 05/05/18 04:07 Creatinine 1.66 mg/dL (0.60-1.20) H 05/05/18 04:07 Est GFR ( Amer) 40 (> 60) L 05/05/18 04:07 Est GFR (Non-Af Amer) 33 (> 60) L 05/05/18 04:07 BUN/Creatinine Ratio 28 (6-26) H 05/05/18 04:07 Glucose 111 mg/dL (70-105) H 05/05/18 04:07 POC Glucose 122 mg/dL (70-99) H 05/05/18 04:24 Hemoglobin A1c 10.6 % (-5.6) H 05/04/18 00:10 Calculated Osmolality 301 (280-300) H 05/05/18 04:07 Total Bilirubin 0.2 mg/dL (0.3-1.0) L 05/04/18 01:02 AST 53 Units/L (13-39) H 05/04/18 01:02 Alkaline Phosphatase 154 Units/L (34-104) H 05/04/18 01:02 Troponin I 0.07 ng/mL (< 0.04) H* 05/04/18 09:05 C-Reactive Protein 288 mg/L (Less than 10) H 05/04/18 01:02 B-Natriuretic Peptide 693 pg/mL (Less than 100) H 05/04/18 09:05 Albumin 3.2 g/dL (3.5-5.7) L 05/04/18 01:02 Globulin 3.8 g/dL (2.4-3.5) H 05/04/18 01:02 Albumin/Globulin Ratio 0.8 (1.1-2.2) L 05/04/18 01:02 Beta-Hydroxybutyric Acd 0.34 mmol/L (0.02-0.27) H 05/04/18 09:05 Ur Specific [place] 1.026 (1.010-1.025) H 05/04/18 00:01 Urine Protein 100 mg/dL (Neg-Trace) H 05/04/18 00:01 Urine Glucose (UA) >=1000 mg/dL (Normal) H 05/04/18 00:01 Ur Squamous Epith Cells Many per lpf (None-Few) H 05/04/18 00:01 Vancomycin Trough 11 mcg/mL (5-10) H 05/04/18 04:45 Rheumatoid Factor 19 IU/mL (Less than 14) H 05/04/18 22:52 - Microbiology Findings Microbiology Findings: Microbiology, Last 48 Hours 05/04/18 00:40 Blood Culture - Preliminary Peripheral Venipuncture Culture is incubating and being continuously monitored for growth. Final report to follow. 05/04/18 00:10 Blood Culture - Preliminary Central Venous Catheter Culture is incubating and being continuously monitored for growth. Final report to follow. - Diagnostic Findings Chest x-ray: report reviewed, image reviewed - Clinical Findings Intake & Output: Intake & Output 05/04/18 05/04/18 05/05/18 15:59 23:59 07:59 Intake Total 500 / 500 Output Total 400 / 400 550 / 550 700 / 700 Balance -400 / -400 -550 / -550 -200 / -200 Weight 84.7 kg Consult Discharge Plan - Plan Referrals: Alejandro Le DO [Primary Care Provider] - <Chip Matt - Last Filed: 05/05/18 10:06> Date of Encounter: 05/05/18 Objective PUL Vital signs: Last Vital Signs Temp 97.9 F 05/05/18 07:00 Pulse 113 05/05/18 08:00 Resp 24 05/05/18 08:00 BP 121/69 05/05/18 08:00 Pulse Ox 94 05/05/18 08:00 Results - Laboratory Findings CBC and BMP: 05/05/18 04:07 05/05/18 04:07 ABG ABG pH 7.36 pH Units (7.32-7.45) 05/05/18 05:15 ABG pCO2 47 mmHg (35-45) H 05/05/18 05:15 ABG pO2 72 mmHg (85-104) L 05/05/18 05:15 ABG O2 Saturation 93 % (95-98) L 05/05/18 05:15 PT/INR, D-dimer PT 13.3 Seconds (9.4-12.1) H 05/04/18 00:10 Abnormal lab findings: Abnormal lab results WBC 18.6 K/mcL (4.3-11.1) H 05/05/18 04:07 RBC 3.39 M/mcL (3.82-4.97) L 05/05/18 04:07 Hgb 9.7 g/dL (11.5-15.4) L 05/05/18 04:07 Hct 29.6 % (35.3-44.9) L 05/05/18 04:07 RDW 16.2 % (11.5-14.5) H 05/05/18 04:07 Plt Count 477 K/mcL (140-400) H 05/05/18 04:07 Neutrophils # 16.8 K/mcL (1.6-8.9) H 05/05/18 04:07 ESR 85 mm/hr (0-15) H 05/04/18 00:10 PT 13.3 Seconds (9.4-12.1) H 05/04/18 00:10 ABG pCO2 47 mmHg (35-45) H 05/05/18 05:15 ABG pO2 72 mmHg (85-104) L 05/05/18 05:15 ABG Total CO2 28 mEq/L (20-26) H 05/05/18 05:15 ABG O2 Saturation 93 % (95-98) L 05/05/18 05:15 BUN 46 mg/dL (6-20) H 05/05/18 04:07 Creatinine 1.66 mg/dL (0.60-1.20) H 05/05/18 04:07 Est GFR ( Amer) 40 (> 60) L 05/05/18 04:07 Est GFR (Non-Af Amer) 33 (> 60) L 05/05/18 04:07 BUN/Creatinine Ratio 28 (6-26) H 05/05/18 04:07 Glucose 111 mg/dL (70-105) H 05/05/18 04:07 POC Glucose 157 mg/dL (70-99) H 05/05/18 07:59 Hemoglobin A1c 10.6 % (-5.6) H 05/04/18 00:10 Calculated Osmolality 301 (280-300) H 05/05/18 04:07 Total Bilirubin 0.2 mg/dL (0.3-1.0) L 05/04/18 01:02 AST 53 Units/L (13-39) H 05/04/18 01:02 Alkaline Phosphatase 154 Units/L (34-104) H 05/04/18 01:02 Troponin I 0.07 ng/mL (< 0.04) H* 05/04/18 09:05 C-Reactive Protein 288 mg/L (Less than 10) H 05/04/18 01:02 B-Natriuretic Peptide 693 pg/mL (Less than 100) H 05/04/18 09:05 Albumin 3.2 g/dL (3.5-5.7) L 05/04/18 01:02 Globulin 3.8 g/dL (2.4-3.5) H 05/04/18 01:02 Albumin/Globulin Ratio 0.8 (1.1-2.2) L 05/04/18 01:02 Lipase < 3 Units/L (11-82) L 05/05/18 04:07 Beta-Hydroxybutyric Acd 0.34 mmol/L (0.02-0.27) H 05/04/18 09:05 Ur Specific [place] 1.026 (1.010-1.025) H 05/04/18 00:01 Urine Protein 100 mg/dL (Neg-Trace) H 05/04/18 00:01 Urine Glucose (UA) >=1000 mg/dL (Normal) H 05/04/18 00:01 Ur Squamous Epith Cells Many per lpf (None-Few) H 05/04/18 00:01 Vancomycin Trough 11 mcg/mL (5-10) H 05/04/18 04:45 Rheumatoid Factor 19 IU/mL (Less than 14) H 05/04/18 22:52 - Microbiology Findings Microbiology Findings: Microbiology, Last 48 Hours 05/04/18 00:40 Blood Culture - Preliminary Peripheral Venipuncture Culture is incubating and being continuously monitored for growth. Final report to follow. 05/04/18 00:10 Blood Culture - Preliminary Central Venous Catheter Culture is incubating and being continuously monitored for growth. Final report to follow. - Clinical Findings Intake & Output: Intake & Output 05/04/18 05/05/18 05/05/18 23:59 07:59 15:59 Intake Total 500 / 500 Output Total 550 / 550 700 / 700 Balance -550 / -550 -200 / -200 Weight 84.7 kg - Attending Attestation I examined this patient and my medical decision-making was reviewed with the Resident Physician. I agree with the documented findings, disposition and treatment plan as described except to the extent set forth below. We independently had niss-pb-urec contact with the patient Patient seen and examined at bedside Labs, radiology, chart personally reviewed. Management was reviewed during multidisciplinary critical care rounds. 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 This has is worsened overnight I suspect this is related to pulmonary toxicity from inhalation injury pot from cleaning solvents. High risk for further deterioration requiring intubation however currently patient is tolerating BiPAP with acceptable oxygenation son 70% FiO2. Ideally patient could undergo a bronchoscopy however given high oxygen requirements is not safe to do this at this time. There is no evidence of hemoptysis which would be consistent with diffuse alveolar hemorrhage in this situation. Nevertheless inflammatory serologies have been sent including ESR CRP and CTA GENET and rheumatoid panel. Steroids have been initiated for early ARDS/AIP along to treat for inhalation injury Cards: Blood pressure monitored and stable GI: Continue to monitor Nutrition: Nothing by mouth for now because of BiPAP Renal: Mild ROGER improving. HyperK+ has resolved. UOP Monitored, Cont to Trend sCr and monitor Electrolytes. ID: She is on broad-spectrum antibiotics for possible sepsis although source remains unclear if lower extremity ulcer is not clearly infected at this time appears to be healing from a surgical standpoint cultures have been obtained she remains on broad-spectrum antimicrobials will de-escalate based upon clinical course/microbiological data Heme/Onc: DVT prophylaxis given Endo: Glucose Monitored Integ/MSK: Skin Care per routine ICU Nursing Protocol to prevent ulcers. Lines: All lines examined without evidence of infection : Dispo: Remain in ICU for close monitoring of respiratory status CODE: Full
[2018-05-05 07:41] LABS: Basophils % 0.1 %; Eosinophils % 0.1 %; Hematocrit 29.6 % (35.3-44.9); Hemoglobin 9.7 g/dL (11.5-15.4); Immature Granulocytes % 0.4 % (0-4); Lymphocytes # 1.2 K/mcL (0.6-4.6); Lymphocytes % 6.6 %; Mean Corpuscular HGB Conc 32.8 g/dL (31.6-35.5); Mean Corpuscular Hemoglobin 28.6 pg (28.0-33.3); Mean Corpuscular Volume 87.3 fL (83.0-100.0); Monocytes # 0.5 K/mcL (0.0-1.3); Monocytes % 2.7 %; Neutrophils # 16.8 K/mcL (1.6-8.9); Platelet Count 477 K/mcL (140-400); Red Blood Count 3.39 M/mcL (3.82-4.97); Red Cell Distribution Width 16.2 % (11.5-14.5); Segmented Neutrophils % 90.1 %
[2018-05-05 07:45] LABS: Lipase < 3 Units/L (11-82)
[2018-05-05] MEDS ORDERED: methylPREDNISolone 125 MG/2 ML VIAL IVP ONE (07:53)
[2018-05-05] MEDS: Nicotine 7 MG PATCH.TD24 TD SCH (07:55)
[2018-05-05] MEDS ORDERED: Acetaminophen/Butalbital/CaffeineTABLET PO ONE (20:11)
[2018-05-05] MEDS: Insulin DETEMIR 100 UNIT/ML X5UNITS SQ SCH (20:40)
[2018-05-06] MEDS: Acetaminophen 325 MG TABLET PO PRN ×2 (00:26→11:20)
[2018-05-06] MEDS: Insulin LISPRO 300 UNITS/3 ML VIAL SQ SCH ×6 (00:57→21:04)
[2018-05-06] MEDS: Levofloxacin 750 MG/150 ML 750 MG/150 ML BAG IVPB SCH (02:56)
[2018-05-06] MEDS: Levalbuterol Neb 1.25 MG/3 ML IH SCH ×4 (03:25→22:25)
[2018-05-06] MEDS: Ipratropium Neb 0.5 MG NEBULIZER IH SCH ×4 (03:26→22:25)
[2018-05-06 05:31] LABS: Hemoglobin 8.4 g/dL (11.5-15.4); Immature Granulocytes % 0.4 % (0-4); Lymphocytes # 0.4 K/mcL (0.6-4.6); Mean Corpuscular HGB Conc 32.3 g/dL (31.6-35.5); Mean Corpuscular Hemoglobin 27.6 pg (28.0-33.3); Mean Corpuscular Volume 85.5 fL (83.0-100.0); Mean Platelet Volume 9.3 fL (9.4-12.4); Monocytes # 0.4 K/mcL (0.0-1.3); Monocytes % 4.4 %; Neutrophils # 9.2 K/mcL (1.6-8.9); Platelet Count 393 K/mcL (140-400); Red Blood Count 3.04 M/mcL (3.82-4.97); Segmented Neutrophils % 91.2 %
[2018-05-06 05:35] LABS: BUN/Creatinine Ratio 33 (6-26); Blood Urea Nitrogen 38 mg/dL (6-20); Calcium 8.6 mg/dL (8.6-10.3); Carbon Dioxide 26 mEq/L (23-29); Chloride 107 mEq/L (98-107); Glucose 67 mg/dL (70-105); Osmolality,Calculated 293 (280-300); Potassium 4.1 mEq/L (3.5-5.1); Sodium 138 mEq/L (136-145); eGFR For African Americans > 60 (> 60); eGFR For Non-African Americans 50 (> 60)
[2018-05-06] MEDS: *HR* Heparin 5,000 UNIT/ML VIAL SQ SCH ×2 (06:37→17:51)
[2018-05-06] MEDS: Nicotine 7 MG PATCH.TD24 TD SCH (07:32)
[2018-05-06] MEDS: methylPREDNISolone 125 MG/2 ML VIAL IVP SCH ×2 (07:32→15:36)
--- NOTE | 2018-05-06 08:47 | Pulmonology Progress Note ---
<JuancarlosChristiano N - Last Filed: 05/06/18 09:53> Date of Encounter: 05/06/18 Time of Encounter: 08:47 Assessment and Plan (1) Sepsis Current Visit: Yes Status: Acute Patient remains on BiPAP and is borderline tachycardic She states she feels subjectively better, denies any fevers, or night sweats CBC this morning revealed a white blood cell count of 10.1 A trial of high flow oxygen was attempted this morning, patient tolerated the high flow for approximately 10-15 minutes with O2 saturations in the upper 80s. However patient began desaturating into the 70s and had to be placed back on BiPAP. Blood and wound cultures are still pending She is currently on levofloxacin 750 mg and vancomycin chest x-ray obtained this morning reveals increased airspace disease versus edema We will give patient 20 mg IV Lasix for possible pulmonary edema Attempt short breaks from BiPAP and place patient on high flow oxygen and monitor O2 saturation Encourage incentive spirometry and out of bed to chair Qualifiers: Sepsis type: sepsis due to unspecified organism Qualified Code(s): A41.9 - Sepsis, unspecified organism (2) Osteomyelitis Current Visit: No Status: Chronic Known history of osteomyelitis of the right foot Recently treated with vancomycin and Bactrim ESR, CRP, and ALP elevated There is a questionable abscess found on CT scan, however given unimpressive clinical exam findings it is not certain if there is an active osteomyelitis present Continue antibiotic therapy Qualifiers: Osteomyelitis type: subacute Osteomyelitis location: foot Laterality: right Qualified Code(s): M86.271 - Subacute osteomyelitis, right ankle and foot (3) Respiratory failure Current Visit: Yes Status: Acute Patient remains on BiPAP, this morning she was saturating around 98% on BiPAP. Attempted high flow oxygen, patient's O2 saturation readings were in the upper 80s. After approximately 10-15 minutes patient started desaturating into the 70s and was placed back on BiPAP at which point her O2 saturation increased to 97%. Chest x-ray taken this morning reveals increased air space disease versus pulmonary edema. We will give 20 mg IV Lasix. Patient states that the day prior to her respiratory decompensation she was using cleaning products which she may have inhaled and thus may have contributed to her current respiratory condition. We will continue to diligently monitor patient's status to assess need for possible future intubation if she desaturates on BiPAP. Continue antibiotic regimen and Solu-Medrol 60 mg every 8 hours Qualifiers: Chronicity: acute Respiratory failure complication: hypoxia Qualified Code(s): J96.01 - Acute respiratory failure with hypoxia (4) Hyperkalemia Current Visit: Yes Status: Resolved Resolved Patient's potassium has been within normal ranges in all recent BMPs continue to monitor BMPs (5) Diabetes mellitus Current Visit: Yes Status: Chronic Patient was started on steroid therapy yesterday, overnight close readings were elevated and she was given Levemir. She has since had readings in the upper 50s and 60s. 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 insulin use: with alf use Diabetes mellitus complication status: with skin complications Diabetes mellitus complication detail: with foot ulcer Qualified Code(s): E11.621 - Type 2 diabetes mellitus with foot ulcer; L97.509 - Non-pressure chronic ulcer of other part of unspecified foot with unspecified severity; L97.509 - Non-pressure chronic ulcer of other part of unspecified foot with unspecified severity; L97.509 - Non-pressure chronic ulcer of other part of unspecified foot with unspecified severity; L97.509 - Non-pressure chronic ulcer of other part of unspecified foot with unspecified severity; Z79.4 - long-term (current) use of insulin; Z79.4 - long-term (current) use of insulin; Z79.4 - long-term (current) use of insulin; Z79.4 - long-term (current ) use of insulin (6) Acute kidney injury Current Visit: Yes Status: Resolved ROGER in the setting of sepsis and recent Bactrim use Creatinine is trending down, most recent reading was 1.16 Continue to monitor (7) HTN (hypertension) Current Visit: No Status: Chronic Blood pressure readings have been within normal ranges Currently not on antihypertensives Qualifiers: Hypertension type: essential hypertension Qualified Code(s): I10 - Essential (primary) hypertension (8) Peripheral neuropathy Current Visit: No Status: Chronic not on home meds Qualifiers: Peripheral neuropathy type: polyneuropathy, unspecified Qualified Code(s): G62.9 - Polyneuropathy, unspecified (9) Obesity (BMI 30.0-34.9) Current Visit: No Status: Chronic Lifestyle modifications (10) DVT prophylaxis Current Visit: Yes Status: Acute Subcutaneous heparin (11) Tobacco abuse Current Visit: Yes Status: Chronic Patient states that she quit recently Prior 20 pack smoking history Subjective Principal diagnosis: Sepsis, respiratory failure Interval history: Patient seen and examined this morning at bedside with the attending present. Patient states that she is subjectively improved, she states she is not as short of breath as she was previously, and per the nurses patient was placed on high flow oxygen last night for dinner and she maintained adequate O2 saturation for 15 minutes. Patient denies any complaints overnight, she denies fevers, chills, night sweats, cough, chest pain, abdominal pain, nausea, vomiting, diarrhea. Objective PUL Vital signs: Last Vital Signs Temp 97.6 F 05/06/18 04:15 Pulse 98 05/06/18 06:00 Resp 10 05/06/18 06:00 BP 123/76 05/06/18 06:00 Pulse Ox 100 05/06/18 06:00 General appearance: no acute distress, alert Eyes: nonicteric ENT: other (BiPAP is in place) Neck: supple, no lymphadenopathy Effort: normal, other (On BiPAP) Auscultation: bilateral: other (Mild crackles at the bases) Cardiovascular: regular rate and rhythm, other (No murmurs) Gastrointestinal: normoactive bowel sounds, soft, non-tender, non-distended Integumentary: other (Culture the right heel) Extremities: no cyanosis, other (Wound right foot, dressings in place) normal mental status mood appropriate, affect normal Results - Laboratory Findings CBC and BMP: 05/06/18 05:00 05/06/18 05:00 ABG ABG pH 7.36 pH Units (7.32-7.45) 05/05/18 05:15 ABG pCO2 47 mmHg (35-45) H 05/05/18 05:15 ABG pO2 72 mmHg (85-104) L 05/05/18 05:15 ABG O2 Saturation 93 % (95-98) L 05/05/18 05:15 PT/INR, D-dimer PT 13.3 Seconds (9.4-12.1) H 05/04/18 00:10 Abnormal lab findings: Abnormal lab results RBC 3.04 M/mcL (3.82-4.97) L 05/06/18 05:00 Hgb 8.4 g/dL (11.5-15.4) L 05/06/18 05:00 Hct 26.0 % (35.3-44.9) L 05/06/18 05:00 MCH 27.6 pg (28.0-33.3) L 05/06/18 05:00 RDW 16.0 % (11.5-14.5) H 05/06/18 05:00 MPV 9.3 fL (9.4-12.4) L 05/06/18 05:00 Neutrophils # 9.2 K/mcL (1.6-8.9) H 05/06/18 05:00 Lymphocytes # 0.4 K/mcL (0.6-4.6) L 05/06/18 05:00 ESR 85 mm/hr (0-15) H 05/04/18 00:10 PT 13.3 Seconds (9.4-12.1) H 05/04/18 00:10 ABG pCO2 47 mmHg (35-45) H 05/05/18 05:15 ABG pO2 72 mmHg (85-104) L 05/05/18 05:15 ABG Total CO2 28 mEq/L (20-26) H 05/05/18 05:15 ABG O2 Saturation 93 % (95-98) L 05/05/18 05:15 BUN 38 mg/dL (6-20) H 05/06/18 05:00 Est GFR (Non-Af Amer) 50 (> 60) L 05/06/18 05:00 BUN/Creatinine Ratio 33 (6-26) H 05/06/18 05:00 Glucose 67 mg/dL (70-105) L 05/06/18 05:00 POC Glucose 50 mg/dL (70-99) L 05/06/18 07:40 Hemoglobin A1c 10.6 % (-5.6) H 05/04/18 00:10 Total Bilirubin 0.2 mg/dL (0.3-1.0) L 05/04/18 01:02 AST 53 Units/L (13-39) H 05/04/18 01:02 Alkaline Phosphatase 154 Units/L (34-104) H 05/04/18 01:02 Troponin I 0.07 ng/mL (< 0.04) H* 05/04/18 09:05 C-Reactive Protein 288 mg/L (Less than 10) H 05/04/18 01:02 B-Natriuretic Peptide 693 pg/mL (Less than 100) H 05/04/18 09:05 Albumin 3.2 g/dL (3.5-5.7) L 05/04/18 01:02 Globulin 3.8 g/dL (2.4-3.5) H 05/04/18 01:02 Albumin/Globulin Ratio 0.8 (1.1-2.2) L 05/04/18 01:02 Lipase < 3 Units/L (11-82) L 05/05/18 04:07 Beta-Hydroxybutyric Acd 0.34 mmol/L (0.02-0.27) H 05/04/18 09:05 Ur Specific Deloit 1.026 (1.010-1.025) H 05/04/18 00:01 Urine Protein 100 mg/dL (Neg-Trace) H 05/04/18 00:01 Urine Glucose (UA) >=1000 mg/dL (Normal) H 05/04/18 00:01 Ur Squamous Epith Cells Many per lpf (None-Few) H 05/04/18 00:01 Vancomycin Trough 11 mcg/mL (5-10) H 05/04/18 04:45 Rheumatoid Factor 19 IU/mL (Less than 14) H 05/04/18 22:52 - Microbiology Findings Microbiology Findings: Microbiology, Last 48 Hours 05/04/18 00:40 Blood Culture - Preliminary Peripheral Venipuncture Culture is incubating and being continuously monitored for growth. Final report to follow. 05/04/18 00:10 Blood Culture - Preliminary Central Venous Catheter Culture is incubating and being continuously monitored for growth. Final report to follow. - Diagnostic Findings Chest x-ray: pending - Clinical Findings Intake & Output: Intake & Output 05/05/18 05/06/18 05/06/18 23:59 07:59 15:59 Intake Total 250 / 250 Output Total 300 / 300 Balance 250 / 250 -300 / -300 Weight 84 kg Consult Discharge Plan - Plan Referrals: Alejandro Le DO [Primary Care Provider] - <Chip Matt - Last Filed: 05/06/18 10:09> Date of Encounter: 05/06/18 Objective PUL Vital signs: Last Vital Signs Temp 97.2 F L 05/06/18 07:00 Pulse 104 05/06/18 08:00 Resp 16 05/06/18 08:00 BP 140/85 05/06/18 08:00 Pulse Ox 95 05/06/18 08:00 Results - Laboratory Findings CBC and BMP: 05/06/18 05:00 05/06/18 05:00 ABG ABG pH 7.36 pH Units (7.32-7.45) 05/05/18 05:15 ABG pCO2 47 mmHg (35-45) H 05/05/18 05:15 ABG pO2 72 mmHg (85-104) L 05/05/18 05:15 ABG O2 Saturation 93 % (95-98) L 05/05/18 05:15 PT/INR, D-dimer PT 13.3 Seconds (9.4-12.1) H 05/04/18 00:10 Abnormal lab findings: Abnormal lab results RBC 3.04 M/mcL (3.82-4.97) L 05/06/18 05:00 Hgb 8.4 g/dL (11.5-15.4) L 05/06/18 05:00 Hct 26.0 % (35.3-44.9) L 05/06/18 05:00 MCH 27.6 pg (28.0-33.3) L 05/06/18 05:00 RDW 16.0 % (11.5-14.5) H 05/06/18 05:00 MPV 9.3 fL (9.4-12.4) L 05/06/18 05:00 Neutrophils # 9.2 K/mcL (1.6-8.9) H 05/06/18 05:00 Lymphocytes # 0.4 K/mcL (0.6-4.6) L 05/06/18 05:00 ESR 85 mm/hr (0-15) H 05/04/18 00:10 PT 13.3 Seconds (9.4-12.1) H 05/04/18 00:10 ABG pCO2 47 mmHg (35-45) H 05/05/18 05:15 ABG pO2 72 mmHg (85-104) L 05/05/18 05:15 ABG Total CO2 28 mEq/L (20-26) H 05/05/18 05:15 ABG O2 Saturation 93 % (95-98) L 05/05/18 05:15 BUN 38 mg/dL (6-20) H 05/06/18 05:00 Est GFR (Non-Af Amer) 50 (> 60) L 05/06/18 05:00 BUN/Creatinine Ratio 33 (6-26) H 05/06/18 05:00 Glucose 67 mg/dL (70-105) L 05/06/18 05:00 POC Glucose 50 mg/dL (70-99) L 05/06/18 07:40 Hemoglobin A1c 10.6 % (-5.6) H 05/04/18 00:10 Total Bilirubin 0.2 mg/dL (0.3-1.0) L 05/04/18 01:02 AST 53 Units/L (13-39) H 05/04/18 01:02 Alkaline Phosphatase 154 Units/L (34-104) H 05/04/18 01:02 Troponin I 0.07 ng/mL (< 0.04) H* 05/04/18 09:05 C-Reactive Protein 288 mg/L (Less than 10) H 05/04/18 01:02 B-Natriuretic Peptide 693 pg/mL (Less than 100) H 05/04/18 09:05 Albumin 3.2 g/dL (3.5-5.7) L 05/04/18 01:02 Globulin 3.8 g/dL (2.4-3.5) H 05/04/18 01:02 Albumin/Globulin Ratio 0.8 (1.1-2.2) L 05/04/18 01:02 Lipase < 3 Units/L (11-82) L 05/05/18 04:07 Beta-Hydroxybutyric Acd 0.34 mmol/L (0.02-0.27) H 05/04/18 09:05 Ur Specific Deloit 1.026 (1.010-1.025) H 05/04/18 00:01 Urine Protein 100 mg/dL (Neg-Trace) H 05/04/18 00:01 Urine Glucose (UA) >=1000 mg/dL (Normal) H 05/04/18 00:01 Ur Squamous Epith Cells Many per lpf (None-Few) H 05/04/18 00:01 Vancomycin Trough 11 mcg/mL (5-10) H 05/04/18 04:45 Rheumatoid Factor 19 IU/mL (Less than 14) H 05/04/18 22:52 - Microbiology Findings Microbiology Findings: Microbiology, Last 48 Hours 05/04/18 00:40 Blood Culture - Preliminary Peripheral Venipuncture Culture is incubating and being continuously monitored for growth. Final report to follow. 05/04/18 00:10 Blood Culture - Preliminary Central Venous Catheter Culture is incubating and being continuously monitored for growth. Final report to follow. - Clinical Findings Intake & Output: Intake & Output 05/05/18 05/06/18 05/06/18 23:59 07:59 15:59 Intake Total 250 / 250 Output Total 300 / 300 Balance 250 / 250 -300 / -300 Weight 84 kg - Attending Attestation I examined this patient and my medical decision-making was reviewed with the Resident Physician. I agree with the documented findings, disposition and treatment plan as described except to the extent set forth below. We independently had [id number] contact with the patient Patient seen and examined at bedside Labs, radiology, chart personally reviewed. Management was reviewed during multidisciplinary critical care rounds. DOCUMENT SPECIALIST: Fully awake and alert following commands no focal deficit Pulm: Acute hypoxic respiratory failure with multifocal infiltrates possibly secondary to inhalation injury with resultant ARDS versus infectious process which is considered less likely. She overall has improvement in oxygenation the last 24 hours and is able to tolerate up to 10 minutes off BiPAP with high flow nasal cannula. Saturation on BiPAP is improved as well. We will try gentle diuresis today and continue steroids. No evidence of hemoptysis clinically Cards: Blood pressure monitored and stable GI: No acute issues Nutrition: Liquid diet as tolerated during breaks from BiPAP Renal: UOP Monitored, Cont to Trend sCr and monitor Electrolytes. ID: She is being treated broadly for possibility of pneumonia from the community or underlying lower extremity infection. It is possible that there is no infectious process and on this may all be inflammatory in nature. Continue antimicrobials through the day with planned to de-escalate tomorrow. Her WBC count has normalized. Cultures thus far are unremarkable Heme/Onc: DVT prophylaxis given H&H stable Endo: Glucose Monitored she presented with hyperglycemia but has been had hypoglycemia over the last 24 hours this is likely secondary to the initiation of a basal insulin dose by the covering team overnight which I have stopped we will continue to monitor her blood sugar closely every 2 hours to the course of the morning and then every 4 hours thereafter. Treat Hypoglycemia as needed Integ/MSK: Skin Care per routine ICU Nursing Protocol to prevent ulcers. Lines: All lines examined without evidence of infection : Dispo: Remain in ICU for respiratory failure CODE: Full
[2018-05-06] MEDS ORDERED: Furosemide 20 MG/2 ML VIAL IVP ONE (09:30)
[2018-05-06] MEDS: ALPRAZolam 1 MG TABLET PO SCH ×2 (15:36→21:02)
[2018-05-07] MEDS: Insulin LISPRO 300 UNITS/3 ML VIAL SQ SCH ×6 (00:55→23:04)
[2018-05-07] MEDS: methylPREDNISolone 125 MG/2 ML VIAL IVP SCH ×2 (01:01→08:20)
[2018-05-07] MEDS: Levalbuterol Neb 1.25 MG/3 ML IH SCH ×4 (03:20→21:23)
[2018-05-07] MEDS: Ipratropium Neb 0.5 MG NEBULIZER IH SCH ×4 (03:20→21:23)
[2018-05-07 04:09] LABS: Basophils % 0.1 %; Hematocrit 29.6 % (35.3-44.9); Hemoglobin 9.6 g/dL (11.5-15.4); Immature Granulocytes % 0.4 % (0-4); Lymphocytes # 0.6 K/mcL (0.6-4.6); Lymphocytes % 4.9 %; Mean Corpuscular HGB Conc 32.4 g/dL (31.6-35.5); Mean Corpuscular Hemoglobin 28.1 pg (28.0-33.3); Mean Corpuscular Volume 86.5 fL (83.0-100.0); Mean Platelet Volume 9.3 fL (9.4-12.4); Monocytes # 0.3 K/mcL (0.0-1.3); Monocytes % 2.3 %; Platelet Count 428 K/mcL (140-400); Red Blood Count 3.42 M/mcL (3.82-4.97); Red Cell Distribution Width 15.9 % (11.5-14.5); Segmented Neutrophils % 92.3 %
[2018-05-07 04:28] LABS: BUN/Creatinine Ratio 35 (6-26); Blood Urea Nitrogen 39 mg/dL (6-20); Calcium 8.7 mg/dL (8.6-10.3); Carbon Dioxide 25 mEq/L (23-29); Chloride 105 mEq/L (98-107); Glucose 143 mg/dL (70-105); Osmolality,Calculated 294 (280-300); Potassium 4.7 mEq/L (3.5-5.1); Sodium 136 mEq/L (136-145); eGFR For African Americans > 60 (> 60); eGFR For Non-African Americans 52 (> 60)
[2018-05-07] MEDS: *HR* Heparin 5,000 UNIT/ML VIAL SQ SCH ×2 (06:24→18:12)
--- NOTE | 2018-05-07 07:53 | Pulmonology Progress Note ---
<ReeceChristiano flores N - Last Filed: 05/07/18 12:16> Date of Encounter: 05/07/18 Time of Encounter: 07:52 Assessment and Plan (1) Sepsis Current Visit: Yes Status: Acute Patient tolerated high flow oxygen for approximately 1 hour overnight. Patient has remained off BiPAP since 6:30 this morning and is currently on 6 L nasal cannula high flow. Patient is currently saturating at 90-95% CBC revealed a white blood cell count of 11.9. This mild leukocytosis may be secondary to steroids. ID may consider de-escalating antibiotic therapy. Patient will be transferred out of the ICU today as her respiratory status has improved and she is tolerating high flow nasal cannula. Patient steroids were changed from IV Solu-Medrol to 40 mg prednisone daily. Continue to monitor patient's O2 saturation. Patient may require periods of BiPAP as she continues to improve. Encourage incentive spirometry and out of bed to chair Qualifiers: Sepsis type: sepsis due to unspecified organism Qualified Code(s): A41.9 - Sepsis, unspecified organism (2) Respiratory failure Current Visit: Yes Status: Acute She has improvement in her O2 saturation overnight and is able to tolerate high flow nasal cannula. Patient's steroid regimen was changed to 40 mg prednisone daily. Patient will be transferred out of the ICU as her acute hypoxic respiratory failure has improved. Continue to monitor patient's oxygenation, continue steroid therapy, and follow- up ID recommendations concerning antibiotic regimen change. Qualifiers: Chronicity: acute Respiratory failure complication: hypoxia Qualified Code(s): J96.01 - Acute respiratory failure with hypoxia (3) Osteomyelitis Current Visit: No Status: Chronic Known history of osteomyelitis of the right foot Recently treated with vancomycin and Bactrim ESR, CRP, and ALP elevated There is a questionable abscess found on CT scan, however given unimpressive clinical exam findings it is not certain if there is an active osteomyelitis present ID to follow up on whether or not to change antibiotic regimen. Continue skin care per protocol Qualifiers: Osteomyelitis type: subacute Osteomyelitis location: foot Laterality: right Qualified Code(s): M86.271 - Subacute osteomyelitis, right ankle and foot (4) Hyperkalemia Current Visit: Yes Status: Resolved Resolved Patient's potassium has been within normal ranges in all recent BMPs continue to monitor BMPs (5) Diabetes mellitus Current Visit: Yes Status: Chronic Continue high intensity sliding scale insulin Continue to monitor [id number] glucose readings Qualifiers: Diabetes mellitus type: type 2 Diabetes mellitus skilled nursing insulin use: with skilled nursing use Diabetes mellitus complication status: with skin complications Diabetes mellitus complication detail: with foot ulcer Qualified Code(s): E11.621 - Type 2 diabetes mellitus with foot ulcer; L97.509 - Non-pressure chronic ulcer of other part of unspecified foot with unspecified severity; L97.509 - Non-pressure chronic ulcer of other part of unspecified foot with unspecified severity; L97.509 - Non-pressure chronic ulcer of other part of unspecified foot with unspecified severity; L97.509 - Non-pressure chronic ulcer of other part of unspecified foot with unspecified severity; 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; 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; 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; Z79.4 - [facility] (current ) use of insulin (6) Acute kidney injury Current Visit: Yes Status: Resolved ROGER in the setting of sepsis and recent Bactrim use Creatinine is trending down, most recent reading was 1.13 Continue to monitor (7) HTN (hypertension) Current Visit: No Status: Chronic Restarted patient's home antihypertensive medications as patient's blood pressure was beginning to rise Monitor kidney function and continue antihypertensive therapy Qualifiers: Hypertension type: essential hypertension Qualified Code(s): I10 - Essential (primary) hypertension (8) Peripheral neuropathy Current Visit: No Status: Chronic Restarted home gabapentin prescription at half the dosage as patient is also currently on Seroquel Assessment patient's symptoms and increased gabapentin dose as needed Qualifiers: Peripheral neuropathy type: polyneuropathy, unspecified Qualified Code(s): G62.9 - Polyneuropathy, unspecified (9) Obesity (BMI 30.0-34.9) Current Visit: No Status: Chronic Lifestyle modifications (10) DVT prophylaxis Current Visit: Yes Status: Acute Subcutaneous heparin (11) Tobacco abuse Current Visit: Yes Status: Chronic Patient states that she quit recently Prior 20 pack smoking history Subjective Principal diagnosis: Sepsis, respiratory failure Interval history: Patient seen and examined this morning at bedside with the attending present. Patient was on high flow oxygen at 6 L nasal cannula. Her O2 saturation was adequate ranging from 90-95%. Per nursing patient was able to tolerate high flow nasal cannula for approximately 1 hour overnight without complaints. Patient states that she subjectively improved from the previous day. Patient does not complain of any chest pain or shortness of breath. She also denies any fevers, chills, night sweats, cough, abdominal pain, nausea, vomiting, or diarrhea. Objective PUL Vital signs: Last Vital Signs Temp 97.2 F L 05/07/18 04:00 Pulse 92 05/07/18 06:00 Resp 14 05/07/18 06:00 BP 136/80 05/07/18 06:00 Pulse Ox 93 05/07/18 06:00 General appearance: no acute distress Eyes: nonicteric Neck: supple Effort: normal Auscultation: bilateral: clear Cardiovascular: regular rate and rhythm Gastrointestinal: normoactive bowel sounds, soft, non-tender, non-distended Integumentary: other (Wound right foot is dressed) Extremities: no cyanosis Musculoskeletal: no deformities normal mental status, non-focal exam mood appropriate, affect normal Results - Laboratory Findings CBC and BMP: 05/07/18 03:33 05/07/18 03:33 ABG ABG pH 7.36 pH Units (7.32-7.45) 05/05/18 05:15 ABG pCO2 47 mmHg (35-45) H 05/05/18 05:15 ABG pO2 72 mmHg (85-104) L 05/05/18 05:15 ABG O2 Saturation 93 % (95-98) L 05/05/18 05:15 PT/INR, D-dimer PT 13.3 Seconds (9.4-12.1) H 05/04/18 00:10 Abnormal lab findings: Abnormal lab results WBC 11.9 K/mcL (4.3-11.1) H 05/07/18 03:33 RBC 3.42 M/mcL (3.82-4.97) L 05/07/18 03:33 Hgb 9.6 g/dL (11.5-15.4) L 05/07/18 03:33 Hct 29.6 % (35.3-44.9) L 05/07/18 03:33 RDW 15.9 % (11.5-14.5) H 05/07/18 03:33 Plt Count 428 K/mcL (140-400) H 05/07/18 03:33 MPV 9.3 fL (9.4-12.4) L 05/07/18 03:33 Neutrophils # 11.0 K/mcL (1.6-8.9) H 05/07/18 03:33 ESR 85 mm/hr (0-15) H 05/04/18 00:10 PT 13.3 Seconds (9.4-12.1) H 05/04/18 00:10 ABG pCO2 47 mmHg (35-45) H 05/05/18 05:15 ABG pO2 72 mmHg (85-104) L 05/05/18 05:15 ABG Total CO2 28 mEq/L (20-26) H 05/05/18 05:15 ABG O2 Saturation 93 % (95-98) L 05/05/18 05:15 BUN 39 mg/dL (6-20) H 05/07/18 03:33 Est GFR (Non-Af Amer) 52 (> 60) L 05/07/18 03:33 BUN/Creatinine Ratio 35 (6-26) H 05/07/18 03:33 Glucose 143 mg/dL (70-105) H 05/07/18 03:33 POC Glucose 134 mg/dL (70-99) H 05/07/18 07:36 Hemoglobin A1c 10.6 % (-5.6) H 05/04/18 00:10 Total Bilirubin 0.2 mg/dL (0.3-1.0) L 05/04/18 01:02 AST 53 Units/L (13-39) H 05/04/18 01:02 Alkaline Phosphatase 154 Units/L (34-104) H 05/04/18 01:02 Troponin I 0.07 ng/mL (< 0.04) H* 05/04/18 09:05 C-Reactive Protein 288 mg/L (Less than 10) H 05/04/18 01:02 B-Natriuretic Peptide 693 pg/mL (Less than 100) H 05/04/18 09:05 Albumin 3.2 g/dL (3.5-5.7) L 05/04/18 01:02 Globulin 3.8 g/dL (2.4-3.5) H 05/04/18 01:02 Albumin/Globulin Ratio 0.8 (1.1-2.2) L 05/04/18 01:02 Lipase < 3 Units/L (11-82) L 05/05/18 04:07 Beta-Hydroxybutyric Acd 0.34 mmol/L (0.02-0.27) H 05/04/18 09:05 Ur Specific [place] 1.026 (1.010-1.025) H 05/04/18 00:01 Urine Protein 100 mg/dL (Neg-Trace) H 05/04/18 00:01 Urine Glucose (UA) >=1000 mg/dL (Normal) H 05/04/18 00:01 Ur Squamous Epith Cells Many per lpf (None-Few) H 05/04/18 00:01 Vancomycin Trough 11 mcg/mL (5-10) H 05/04/18 04:45 Rheumatoid Factor 19 IU/mL (Less than 14) H 05/04/18 22:52 - Microbiology Findings Microbiology Findings: Microbiology, Last 48 Hours 05/05/18 03:25 Wound Culture - Preliminary Right Foot No growth. - Clinical Findings Intake & Output: Intake & Output 05/06/18 05/06/18 05/07/18 15:59 23:59 07:59 Intake Total 400 / 400 Output Total 1200 / 1200 250 / 250 500 / 500 Balance -800 / -800 -250 / -250 -500 / -500 Consult Discharge Plan - Plan Referrals: Alejandro Le DO [Primary Care Provider] - <Mil Trejo - Last Filed: 05/07/18 13:10> Date of Encounter: 05/07/18 Objective PUL Vital signs: Last Vital Signs Temp 97.7 F 05/07/18 08:27 Pulse 88 05/07/18 08:00 Resp 18 05/07/18 07:00 BP 142/88 05/07/18 08:00 Pulse Ox 93 05/07/18 07:00 Results - Laboratory Findings CBC and BMP: 05/07/18 03:33 05/07/18 03:33 ABG ABG pH 7.36 pH Units (7.32-7.45) 05/05/18 05:15 ABG pCO2 47 mmHg (35-45) H 05/05/18 05:15 ABG pO2 72 mmHg (85-104) L 05/05/18 05:15 ABG O2 Saturation 93 % (95-98) L 05/05/18 05:15 PT/INR, D-dimer PT 13.3 Seconds (9.4-12.1) H 05/04/18 00:10 Abnormal lab findings: Abnormal lab results WBC 11.9 K/mcL (4.3-11.1) H 05/07/18 03:33 RBC 3.42 M/mcL (3.82-4.97) L 05/07/18 03:33 Hgb 9.6 g/dL (11.5-15.4) L 05/07/18 03:33 Hct 29.6 % (35.3-44.9) L 05/07/18 03:33 RDW 15.9 % (11.5-14.5) H 05/07/18 03:33 Plt Count 428 K/mcL (140-400) H 05/07/18 03:33 MPV 9.3 fL (9.4-12.4) L 05/07/18 03:33 Neutrophils # 11.0 K/mcL (1.6-8.9) H 05/07/18 03:33 ESR 85 mm/hr (0-15) H 05/04/18 00:10 PT 13.3 Seconds (9.4-12.1) H 05/04/18 00:10 ABG pCO2 47 mmHg (35-45) H 05/05/18 05:15 ABG pO2 72 mmHg (85-104) L 05/05/18 05:15 ABG Total CO2 28 mEq/L (20-26) H 05/05/18 05:15 ABG O2 Saturation 93 % (95-98) L 05/05/18 05:15 BUN 39 mg/dL (6-20) H 05/07/18 03:33 Est GFR (Non-Af Amer) 52 (> 60) L 05/07/18 03:33 BUN/Creatinine Ratio 35 (6-26) H 05/07/18 03:33 Glucose 143 mg/dL (70-105) H 05/07/18 03:33 POC Glucose 134 mg/dL (70-99) H 05/07/18 07:36 Hemoglobin A1c 10.6 % (-5.6) H 05/04/18 00:10 Total Bilirubin 0.2 mg/dL (0.3-1.0) L 05/04/18 01:02 AST 53 Units/L (13-39) H 05/04/18 01:02 Alkaline Phosphatase 154 Units/L (34-104) H 05/04/18 01:02 Troponin I 0.07 ng/mL (< 0.04) H* 05/04/18 09:05 C-Reactive Protein 288 mg/L (Less than 10) H 05/04/18 01:02 B-Natriuretic Peptide 693 pg/mL (Less than 100) H 05/04/18 09:05 Albumin 3.2 g/dL (3.5-5.7) L 05/04/18 01:02 Globulin 3.8 g/dL (2.4-3.5) H 05/04/18 01:02 Albumin/Globulin Ratio 0.8 (1.1-2.2) L 05/04/18 01:02 Lipase < 3 Units/L (11-82) L 05/05/18 04:07 Beta-Hydroxybutyric Acd 0.34 mmol/L (0.02-0.27) H 05/04/18 09:05 Procalcitonin 1.00 ng/mL (<=0.07) H 05/04/18 16:00 Ur Specific [place] 1.026 (1.010-1.025) H 05/04/18 00:01 Urine Protein 100 mg/dL (Neg-Trace) H 05/04/18 00:01 Urine Glucose (UA) >=1000 mg/dL (Normal) H 05/04/18 00:01 Ur Squamous Epith Cells Many per lpf (None-Few) H 05/04/18 00:01 Vancomycin Trough 11 mcg/mL (5-10) H 05/04/18 04:45 Rheumatoid Factor 19 IU/mL (Less than 14) H 05/04/18 22:52 - Microbiology Findings Microbiology Findings: Microbiology, Last 48 Hours 05/05/18 03:25 Wound Culture - Preliminary Right Foot No growth. - Clinical Findings Intake & Output: Intake & Output 05/06/18 05/07/18 05/07/18 23:59 07:59 15:59 Intake Total 360 / 360 Output Total 250 / 250 500 / 500 200 / 200 Balance -250 / -250 -500 / -500 160 / 160 - Attending Attestation I examined this patient and my medical decision-making was reviewed with the Resident Physician. I agree with the documented findings, disposition and treatment plan as described except to the extent set forth below. Patient seen and examined. Labs, radiology, chart personally reviewed. 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 Transition to oral prednisone. Cardiovascular: stable GI: Nutrition per dietary and GI prophylaxis per routine Heme: DVT prophylaxis per routine ID: Continue antibiotics and plan to de-escalation Renal; urine out put and renal funtion reviewed Endorcine: blood glucose is monitored Lines: all lines checked and no evidence of infections Skin: skin care to prevent pressure ulcers per nursing routine care Patient is stable to be transferred to the floor.
[2018-05-07 08:11] LABS: ANA IgG by ELISA NONE DETECTED (None Detected)
[2018-05-07] MEDS ORDERED: Aminoglycoside Consult 1 EACH MC ONE (08:12)
[2018-05-07] MEDS: Nicotine 7 MG PATCH.TD24 TD SCH (08:19)
[2018-05-07] MEDS: ALPRAZolam 1 MG TABLET PO SCH ×3 (08:24→23:03)
[2018-05-07 08:27] LABS: Myeloperoxidase Ab 0 AU/mL (0-19); Serine Protease-3 Antibody 2 AU/mL (0-19)
[2018-05-07] MEDS ORDERED: *HR* Dextrose 50 % in Water (Syg) 50 ML SYRINGE IVP PRN (10:44)
[2018-05-07] MEDS ORDERED: Naloxone 0.4 MG/ML INJ IVP PRN (10:44)
[2018-05-07] MEDS ORDERED: Dextrose Gel 15 GM/37.5 ML TUBE PO PRN ×2 (10:44)
[2018-05-07] MEDS ORDERED: Acetaminophen 325 MG TABLET PO PRN (10:44)
[2018-05-07] MEDS ORDERED: D5% in Water 1,000 ML IVC PRN (10:44)
[2018-05-07] MEDS ORDERED: Levofloxacin 750 MG/150 ML 750 MG/150 ML BAG IVPB SCH (11:00)
[2018-05-07] MEDS: Aspirin 81 MG TAB.CHEW PO SCH (12:07)
[2018-05-07] MEDS: Lisinopril-HCTZ 20-12.5mg TABLET PO SCH (12:07)
[2018-05-07] MEDS: FLUoxetine 20 MG CAPSULE PO SCH (12:07)
--- NOTE | 2018-05-07 15:51 | Infectious Disease Progress No ---
Date of Encounter: 05/07/18 Time of Encounter: 15:49 - Assessment and Plan (1) Sepsis Current Visit: Yes Status: Acute Severe sepsis: The patient had two SIRS criteria plus lactic acidosis and ROGER and AMS. Etiology unclear: pneumonia vs. inhalation pneumonitis. Improved. WBC trending down. Tachycardia improved. Lactic acidosis resolved. ROGER improved. Blood cultures drawn 05/03/18 at [facility] are NGTD x 2 sets. Additional blood cultures drawn 05/04/18 at [facility] are NGTD x 2 sets. Qualifiers: Sepsis type: sepsis due to unspecified organism Qualified Code(s): A41.9 - Sepsis, unspecified organism (2) Respiratory failure Current Visit: Yes Status: Acute Etiology unclear: pulmonary edema vs. infectious vs. other. CXR completed 05/04/18 showed diffuse interstital prominence and possible hazy uniform airspace disease bilaterally that could reflect pulmonary edema vs. viral process vs. diffuse airway inflammation. CT chest showed bilateral diffuse interstitial pulmonary process concerning for atypical viral pneumonia vs. ARDS vs. noncardiogenic pulmonary edema vs. acute interstitial pneumonitis and nonspecific bilateral solid pulmonary nodules. Pulmonology consulted and following. Feel the patient's symptoms could be from inhalation pneumonitis. Diuresis and O2 per the pulmonology team. RIP negative. Check procalcitonin level. --> 1.00 No MRSA isolated on cultures and clinical picture not consistent with MRSA infection. Discontinue Vancomycin. Continue Levaquin for now. Duration of treatment depends on the clinical picture. Monitor renal function and dose-adjust antibiotics. Qualifiers: Chronicity: acute Respiratory failure complication: hypoxia Qualified Code(s): J96.01 - Acute respiratory failure with hypoxia (3) Osteomyelitis Current Visit: No Status: Chronic Chronic osteomyelitis of the right calcaneus, right cuboid, and right navicular. Previous causative organisms include MRSA and Strep mitis. Most recently treated in with 9 weeks of IV vancomycin. Transitioned to PO Bactrim 04/25/18. Clinically, the wound looks great. ESR is improved. CRP is worse. CT scan done at [facility] showed erosive changes of the talus and navicular and possible phlegmon/abscess. Podiatry consulted. CK level normal. Repeat ESR and CRP in the AM. Discontinue Vancomycin and observe. May consider repeat imaging in a few weeks once the patient has been off antibiotics. Wound care and activity per the Podiatry team. Qualifiers: Osteomyelitis type: subacute Osteomyelitis location: foot Laterality: right Qualified Code(s): M86.271 - Subacute osteomyelitis, right ankle and foot (4) Acute kidney injury Current Visit: Yes Status: Resolved Likely secondary to sepsis. Improved. Continue to trend. Dose-adjust antibiotics. Avoid additional nephrotoxins. (5) Lactic acidosis Current Visit: Yes Status: Acute Likely secondary to sepsis. Resolved. (6) Nonhealing surgical wound Current Visit: No Status: Acute Wound care per the podiatry team. Qualifiers: Encounter type: subsequent encounter Qualified Code(s): T81.89XD - Other complications of procedures, not elsewhere classified, subsequent encounter (7) Bacteremia Current Visit: No Status: Resolved Recurrent MRSA bacteremia. Source not clear, but concern that the foot was the source due to recurrence despite adequate IV antibiotics. Blood cultures drawn 01/08/18 were positive 2/2 sets for MRSA. Repeat blood cultures drawn 01/09/18 x2 sets were negative. ELYSE negative. Treated with 14 days of IV Vancomycin. Repeat blood cultures 02/14/18 were positive 2/2 sets for MRSA. Status post I & D of the right calcaneus 02/16/18. Cultures were negative. Repeat blood cultures drawn 02/18/18 were negative. ELYSE deferred. Treated with 9 weeks of IV antibiotics. (8) Diabetes mellitus Current Visit: Yes Status: Chronic HgbA1C 7.9% in October. Blood sugars very high on admission--> ? DKA Recommend aggressive glucose monitoring and control to promote wound healing and prevent re-infection Management per the primary team. 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4 - [facility] (current) use of insulin; Z79.4 - [facility] (current) use of insulin; 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 No acute events noted overnight. Patient resting in bed on high flow O2, required BIPAP overnight. States overall she feels better. Not currently short of breath. Reports productive cough with brownish sputum. Denies fevers, chills, or rigors. Denies chest pain, shortness of breath. Denies nausea, vomiting, diarrhea. Reports last BM 2 days ago. Kraft catheter remains patent draining clear yellow urine. Denies abdominal pain or appetite changes. Denies pain at this time. Infect Dis PN-Objective Data - Labs CBC & Chem 7: 05/08/18 04:09 05/08/18 04:09 Labs: Laboratory Results - last 24 hr 05/04/18 05/04/18 05/04/18 16:00 22:52 22:52 WBC RBC Hgb Hct MCV MCH MCHC RDW Plt Count MPV Immature Gran % Seg Neutrophils % Lymphocytes % Monocytes % Eosinophils % Basophils % Neutrophils # Lymphocytes # Monocytes # Eosinophils # Basophils # Sodium Potassium Chloride Carbon Dioxide BUN Creatinine Est GFR ( Amer) Est GFR (Non-Af Amer) BUN/Creatinine Ratio Glucose POC Glucose Calculated Osmolality Calcium Procalcitonin 1.00 H Cycl Citrul Peptide IgG 9 GENET Screen NONE DETECTED Myeloperoxidase Ab 0 Serine Protease 3 Ab 2 05/06/18 05/07/18 05/07/18 20:07 00:54 03:33 WBC 11.9 H RBC 3.42 L Hgb 9.6 L Hct 29.6 L MCV 86.5 MCH 28.1 MCHC 32.4 RDW 15.9 H Plt Count 428 H MPV 9.3 L Immature Gran % 0.4 Seg Neutrophils % 92.3 Lymphocytes % 4.9 Monocytes % 2.3 Eosinophils % 0.0 Basophils % 0.1 Neutrophils # 11.0 H Lymphocytes # 0.6 Monocytes # 0.3 Eosinophils # 0.0 Basophils # 0.0 Sodium Potassium Chloride Carbon Dioxide BUN Creatinine Est GFR ( Amer) Est GFR (Non-Af Amer) BUN/Creatinine Ratio Glucose POC Glucose 147 H 127 H Calculated Osmolality Calcium Procalcitonin Cycl Citrul Peptide IgG GENET Screen Myeloperoxidase Ab Serine Protease 3 Ab 05/07/18 05/07/18 05/07/18 03:33 03:45 07:36 WBC RBC Hgb Hct MCV MCH MCHC RDW Plt Count MPV Immature Gran % Seg Neutrophils % Lymphocytes % Monocytes % Eosinophils % Basophils % Neutrophils # Lymphocytes # Monocytes # Eosinophils # Basophils # Sodium 136 Potassium 4.7 Chloride 105 Carbon Dioxide 25 BUN 39 H Creatinine 1.13 Est GFR ( Amer) > 60 Est GFR (Non-Af Amer) 52 L BUN/Creatinine Ratio 35 H Glucose 143 H POC Glucose 162 H 134 H Calculated Osmolality 294 Calcium 8.7 Procalcitonin Cycl Citrul Peptide IgG GENET Screen Myeloperoxidase Ab Serine Protease 3 Ab 05/07/18 05/07/18 11:33 15:33 WBC RBC Hgb Hct MCV MCH MCHC RDW Plt Count MPV Immature Gran % Seg Neutrophils % Lymphocytes % Monocytes % Eosinophils % Basophils % Neutrophils # Lymphocytes # Monocytes # Eosinophils # Basophils # Sodium Potassium Chloride Carbon Dioxide BUN Creatinine Est GFR ( Amer) Est GFR (Non-Af Amer) BUN/Creatinine Ratio Glucose POC Glucose 246 H 265 H Calculated Osmolality Calcium Procalcitonin Cycl Citrul Peptide IgG GENET Screen Myeloperoxidase Ab Serine Protease 3 Ab Cultures: Cultures 05/05/18 03:25 Wound Culture - Final Right Foot No growth. 05/04/18 00:40 Blood Culture - Preliminary Peripheral Venipuncture Culture is incubating and being continuously monitored for growth. Final report to follow. 05/04/18 00:10 Blood Culture - Preliminary Central Venous Catheter Culture is incubating and being continuously monitored for growth. Final report to follow. Serology 05/04/18 05/04/18 Range/Units 14:20 00:01 Urine Color Yellow (Yellow) Urine Clarity Clear (Clear) Urine pH 6.0 (5.0-8.0) pH Units Ur Specific [place] 1.026 H (1.010-1.025) Urine Protein 100 H (Neg-Trace) mg/dL Urine Glucose (UA) >=1000 H (Normal) mg/dL Urine Ketones Negative (Negative) mg/dL Urine Blood Negative (Negative) Urine Nitrite Negative (Negative) Urine Bilirubin Negative (Negative) Urine Urobilinogen Normal (Normal) mg/dL Ur Leukocyte Esterase Negative (Negative) Urine Microscopic RBC 0-3 (0-3) per hpf Urine Microscopic WBC 0-3 (0-3) per hpf Ur Squamous Epith Cells Many H (None-Few) per lpf Urine Bacteria None Seen (None-Few) per hpf Hyaline Casts None Seen (None-Few) per lpf Chlamy pneumoniae PCR Not Detected (Not Detect) Adenovirus (PCR) Not Detected (Not Detect) B. pertussis DNA (PCR) Not Detected (Not Detect) B.parapertussis DNA PCR Not Detected (Not Detect) Coronavirus OC43 (PCR) Not Detected (Not Detect) Coronavirus HKU1 (PCR) Not Detected (Not Detect) Coronavirus 229E (PCR) Not Detected (Not Detect) Coronavirus NL63 (PCR) Not Detected (Not Detect) Human Metapneumovir PCR Not Detected (Not Detect) Influenza A (H1) PCR Not Detected (Not Detect) Influ A (H1N1/09) PCR Not Detected (Not Detect) Influenza A (H3) PCR Not Detected (Not Detect) Influenza A Untype (PCR) Not Detected (Not Detect) Influenza Type B (PCR) Not Detected (Not Detect) M.pneumoniae DNA (PCR) Not Detected (Not Detect) Parainfluenza 1 (PCR) Not Detected (Not Detect) Parainfluenza 2 (PCR) Not Detected (Not Detect) Parainfluenza 3 (PCR) Not Detected (Not Detect) Parainfluenza 4 (PCR) Not Detected (Not Detect) RSV (PCR) Not Detected (Not Detect) Entero/Rhino (PCR) Not Detected (Not Detect) Exam - Constitutional Vitals: Temp Pulse Resp BP Pulse Ox 98.2 F 96 18 149/95 97 05/07/18 12:00 05/07/18 14:00 05/07/18 14:00 05/07/18 14:00 05/07/18 14:00 General appearance: average body habitus, cooperative, no acute distress - Head Head exam: Present: atraumatic, normal inspection, normocephalic - Eye Eye exam: Present: EOMI, normal appearance, PERRL Pupils: Present: normal accommodation - ENT ENT exam: Present: mucous membranes moist - Neck Neck exam: Present: normal inspection - Respiratory Respiratory exam: Present: CTAB. Absent: rales, respiratory distress, rhonchi, wheezes - Cardiovascular Cardiovascular exam: Present: RRR, +S1, +S2 - GI/Abdominal GI/Abdominal exam: Present: normal bowel sounds, soft. Absent: distended, tenderness - Extremities Exam Extremities exam: Absent: joint swelling, pedal edema, tenderness Additional comments: Right foot dressing C/D/I. - Neurological Exam Neurological exam: Present: alert, oriented X3, no focal deficits - Psychiatric Psychiatric exam: Present: normal affect, normal mood - Skin Skin exam: Present: dry, intact, normal color, warm Consult Discharge Plan - Plan Referrals: Alejandro Le DO [Primary Care Provider] - - Attending Attestation I examined this patient and my medical decision-making was reviewed with the Resident Physician. I agree with the documented findings, disposition and treatment plan as described except to the extent set forth below.
[2018-05-07] MEDS: Gabapentin 400 MG CAPSULE PO SCH ×2 (16:07→23:03)
--- NOTE | 2018-05-07 18:06 | Podiatry Progress Note ---
Date of Encounter: 05/07/18 Time of Encounter: 16:55 - Assessment and Plan (1) Diabetic foot ulcer Current Visit: Yes Status: Chronic Assessment: #1 patient with a slow to heal surgical wound right calcaneus. #2 there is no clinical evidence of active infection of the right foot. No fluctuance no odor no purulence no edema no erythema no warmth no necrosis no lymphangitis no cellulitis no exudate. Wound edges are attached no undermining no sinus tract no tunneling. Plan: #1 continue intravenous antibiotics per recommendation of infectious disease service #2 local wound care presently with strict offloading of the wound in bed #3 cleanse right foot with mild soap and warm water apply Adaptic 4 x 4's and Medipore tape daily #4 Will order a wound VAC to be reapplied to the right calcaneus. Qualifiers: Diabetic foot ulcer location: heel Diabetes mellitus type: type 2 Laterality: right Non-pressure ulcer stage: with fat layer exposed Qualified Code(s): E11.621 - Type 2 diabetes mellitus with foot ulcer; L97.412 - Non-pressure chronic ulcer of right heel and midfoot with fat layer exposed (2) Nonhealing surgical wound Current Visit: No Status: Acute Qualifiers: Encounter type: subsequent encounter Qualified Code(s): T81.89XD - Other complications of procedures, not elsewhere classified, subsequent encounter (3) Peripheral neuropathy Current Visit: No Status: Chronic Qualifiers: Peripheral neuropathy type: polyneuropathy, unspecified Qualified Code(s): G62.9 - Polyneuropathy, unspecified Subjective Principal diagnosis: Sepsis, respiratory failure Interval history: Patient is sitting up in bed receiving a breathing treatment. Patient is currently in the ICU. Patient has a dressing dry and intact to the right foot, no c/o pain. Objective - Vital Signs Vital Signs: Vital Signs Temp Pulse Resp BP Pulse Ox 05/07/18 16:38 18 97 05/07/18 16:11 97.4 F L 05/07/18 16:00 97.4 F L 96 16 169/103 95 05/07/18 14:00 96 18 149/95 97 05/07/18 12:00 98.2 F 105 20 165/104 93 05/07/18 11:47 98.2 F 05/07/18 10:42 16 96 05/07/18 10:00 96 16 147/89 93 05/07/18 08:27 97.7 F 05/07/18 08:00 97.7 F 88 142/88 05/07/18 07:00 87 18 141/84 93 05/07/18 06:00 92 14 136/80 93 05/07/18 05:00 99 22 146/90 97 05/07/18 04:00 97.2 F L 100 14 151/92 93 05/07/18 03:20 16 95 05/07/18 03:00 91 12 160/97 96 05/07/18 02:00 87 12 157/95 97 05/07/18 01:00 92 12 144/91 96 05/07/18 00:13 18 95 05/07/18 00:00 98.0 F 96 14 141/101 98 05/06/18 23:00 97 18 147/90 98 05/06/18 22:25 17 93 05/06/18 22:00 93 18 146/88 90 05/06/18 21:00 93 12 147/93 90 05/06/18 20:00 98.2 F 96 18 145/91 90 05/06/18 19:00 107 16 127/74 95 05/06/18 18:16 18 150/93 97 Intake and Output 05/07/18 05/07/18 05/07/18 07:59 15:59 23:59 Intake Total 360 / 360 360 / 360 Output Total 500 / 500 400 / 400 200 / 200 Balance -500 / -500 -40 / -40 160 / 160 Intake: Oral 360 / 360 360 / 360 Output: Catheter 500 / 500 400 / 400 200 / 200 Other: Meal Breakfast Dinner Percent of Meal Consumed 90% 90% Blood Glucose* 162 246 265 - Exam Exam: General appearance: alert awake oriented X 3. Calm and pleasant, no acute distress.. Vascular: Pedal pulses +1/4 DP/PT , No evidence of cyanosis, pallor or rubor, Edema graded at 1+/4, Skin Temperature warm, No calf pain with manual compression. capillary refill time is immediate to digits. Neurologic: Sensation intact with light touch to foot. . Wound: Full thickness wound to the plantar aspect of the right heel measuring 4.5 cm in length x 2.5 cm in width x 1 cm in depth, base of wound with 100 % red granulation tissue, no periwound ertyhema, no streaking, no cellulitis, no pus, no odor. Small amount of serous drainage observed to dressing. - Lab Result Diagrams: 05/08/18 04:09 05/08/18 04:09 Labs: Abnormal lab results WBC 11.9 K/mcL (4.3-11.1) H 05/07/18 03:33 RBC 3.42 M/mcL (3.82-4.97) L 05/07/18 03:33 Hgb 9.6 g/dL (11.5-15.4) L 05/07/18 03:33 Hct 29.6 % (35.3-44.9) L 05/07/18 03:33 RDW 15.9 % (11.5-14.5) H 05/07/18 03:33 Plt Count 428 K/mcL (140-400) H 05/07/18 03:33 MPV 9.3 fL (9.4-12.4) L 05/07/18 03:33 Neutrophils # 11.0 K/mcL (1.6-8.9) H 05/07/18 03:33 ESR 85 mm/hr (0-15) H 05/04/18 00:10 PT 13.3 Seconds (9.4-12.1) H 05/04/18 00:10 ABG pCO2 47 mmHg (35-45) H 05/05/18 05:15 ABG pO2 72 mmHg (85-104) L 05/05/18 05:15 ABG Total CO2 28 mEq/L (20-26) H 05/05/18 05:15 ABG O2 Saturation 93 % (95-98) L 05/05/18 05:15 BUN 39 mg/dL (6-20) H 05/07/18 03:33 Est GFR (Non-Af Amer) 52 (> 60) L 05/07/18 03:33 BUN/Creatinine Ratio 35 (6-26) H 05/07/18 03:33 Glucose 143 mg/dL (70-105) H 05/07/18 03:33 POC Glucose 265 mg/dL (70-99) H 05/07/18 15:33 Hemoglobin A1c 10.6 % (-5.6) H 05/04/18 00:10 Total Bilirubin 0.2 mg/dL (0.3-1.0) L 05/04/18 01:02 AST 53 Units/L (13-39) H 05/04/18 01:02 Alkaline Phosphatase 154 Units/L (34-104) H 05/04/18 01:02 Troponin I 0.07 ng/mL (< 0.04) H* 05/04/18 09:05 C-Reactive Protein 288 mg/L (Less than 10) H 05/04/18 01:02 B-Natriuretic Peptide 693 pg/mL (Less than 100) H 05/04/18 09:05 Albumin 3.2 g/dL (3.5-5.7) L 05/04/18 01:02 Globulin 3.8 g/dL (2.4-3.5) H 05/04/18 01:02 Albumin/Globulin Ratio 0.8 (1.1-2.2) L 05/04/18 01:02 Lipase < 3 Units/L (11-82) L 05/05/18 04:07 Beta-Hydroxybutyric Acd 0.34 mmol/L (0.02-0.27) H 05/04/18 09:05 Procalcitonin 1.00 ng/mL (<=0.07) H 05/04/18 16:00 Ur Specific [place] 1.026 (1.010-1.025) H 05/04/18 00:01 Urine Protein 100 mg/dL (Neg-Trace) H 05/04/18 00:01 Urine Glucose (UA) >=1000 mg/dL (Normal) H 05/04/18 00:01 Ur Squamous Epith Cells Many per lpf (None-Few) H 05/04/18 00:01 Vancomycin Trough 11 mcg/mL (5-10) H 05/04/18 04:45 Rheumatoid Factor 19 IU/mL (Less than 14) H 05/04/18 22:52 Microbiology, Last 48 Hours 05/05/18 03:25 Wound Culture - Final Right Foot No growth. Consult Discharge Plan - Plan Referrals: Alejandro Le DO [Primary Care Provider] -
[2018-05-08] MEDS: Insulin LISPRO 300 UNITS/3 ML VIAL SQ SCH ×5 (02:30→17:40)
[2018-05-08] MEDS: Ipratropium Neb 0.5 MG NEBULIZER IH SCH ×4 (03:32→22:48)
[2018-05-08] MEDS: Levalbuterol Neb 1.25 MG/3 ML IH SCH ×4 (03:32→22:48)
[2018-05-08 05:11] LABS: Eosinophils # 0.1 K/mcL (0.0-0.6); Eosinophils % 1.1 %; Hematocrit 30.4 % (35.3-44.9); Hemoglobin 9.8 g/dL (11.5-15.4); Immature Granulocytes % 0.5 % (0-4); Lymphocytes # 1.9 K/mcL (0.6-4.6); Lymphocytes % 15.6 %; Mean Corpuscular HGB Conc 32.2 g/dL (31.6-35.5); Mean Corpuscular Hemoglobin 28.2 pg (28.0-33.3); Mean Corpuscular Volume 87.6 fL (83.0-100.0); Mean Platelet Volume 9.2 fL (9.4-12.4); Monocytes # 0.5 K/mcL (0.0-1.3); Monocytes % 3.8 %; Neutrophils # 9.7 K/mcL (1.6-8.9); Platelet Count 424 K/mcL (140-400); Red Blood Count 3.47 M/mcL (3.82-4.97); Red Cell Distribution Width 15.9 % (11.5-14.5)
[2018-05-08 05:32] LABS: BUN/Creatinine Ratio 39 (6-26); Blood Urea Nitrogen 45 mg/dL (6-20); Calcium 8.9 mg/dL (8.6-10.3); Carbon Dioxide 27 mEq/L (23-29); Chloride 106 mEq/L (98-107); Glucose 188 mg/dL (70-105); Osmolality,Calculated 303 (280-300); Potassium 4.1 mEq/L (3.5-5.1); Sodium 138 mEq/L (136-145); eGFR For African Americans > 60 (> 60); eGFR For Non-African Americans 51 (> 60)
[2018-05-08] MEDS: *HR* Heparin 5,000 UNIT/ML VIAL SQ SCH ×2 (07:00→17:40)
[2018-05-08] MEDS ORDERED: predniSONE 20 MG TABLET PO SCH (09:00)
[2018-05-08] MEDS: Lisinopril-HCTZ 20-12.5mg TABLET PO SCH (09:04)
[2018-05-08] MEDS: Nicotine 7 MG PATCH.TD24 TD SCH (09:04)
[2018-05-08] MEDS: FLUoxetine 20 MG CAPSULE PO SCH (09:04)
[2018-05-08] MEDS: Aspirin 81 MG TAB.CHEW PO SCH (09:04)
[2018-05-08] MEDS: Gabapentin 400 MG CAPSULE PO SCH ×3 (09:04→22:35)
[2018-05-08] MEDS: predniSONE 20 MG TABLET PO SCH (09:05)
[2018-05-08] MEDS: ALPRAZolam 1 MG TABLET PO SCH ×3 (09:05→22:34)
--- NOTE | 2018-05-08 12:01 | Infectious Disease Progress No ---
Date of Encounter: 05/08/18 Time of Encounter: 09:45 - Assessment and Plan (1) Sepsis Current Visit: Yes Status: Acute Severe sepsis: The patient had two SIRS criteria plus lactic acidosis and ROGER and AMS. Etiology unclear: pneumonia vs. inhalation pneumonitis. Improved. WBC elevated this morning, likely secondary to steroids. Tachycardia improved. Lactic acidosis resolved. ROGER improved. Blood cultures drawn 05/03/18 at [facility] are negative x 2 sets. Additional blood cultures drawn 05/04/18 at [facility] are NGTD x 2 sets. Qualifiers: Sepsis type: sepsis due to unspecified organism Qualified Code(s): A41.9 - Sepsis, unspecified organism (2) Respiratory failure Current Visit: Yes Status: Acute Etiology unclear: pulmonary edema vs. infectious vs. other. CXR completed 05/04/18 showed diffuse interstital prominence and possible hazy uniform airspace disease bilaterally that could reflect pulmonary edema vs. viral process vs. diffuse airway inflammation. CT chest showed bilateral diffuse interstitial pulmonary process concerning for atypical viral pneumonia vs. ARDS vs. noncardiogenic pulmonary edema vs. acute interstitial pneumonitis and nonspecific bilateral solid pulmonary nodules. Pulmonology consulted and following. Feel the patient's symptoms could be from inhalation pneumonitis. Diuresis and O2 per the pulmonology team. RIP negative. Check procalcitonin level. --> 1.00 No MRSA isolated on cultures and clinical picture not consistent with MRSA infection. Discontinue Vancomycin. Levaquin stopped by the pulmonology team. Duration of treatment depends on the clinical picture. Monitor renal function and dose-adjust antibiotics. Qualifiers: Chronicity: acute Respiratory failure complication: hypoxia Qualified Code(s): J96.01 - Acute respiratory failure with hypoxia (3) Osteomyelitis Current Visit: No Status: Chronic Chronic osteomyelitis of the right calcaneus, right cuboid, and right navicular. Previous causative organisms include MRSA and Strep mitis. Most recently treated in with 9 weeks of IV vancomycin. Transitioned to PO Bactrim 04/25/18. Clinically, the wound looks great. ESR is improved. CRP is worse. CT scan done at [facility] showed erosive changes of the talus and navicular and possible phlegmon/abscess. Podiatry consulted. CK level normal. Repeat ESR and CRP. Add to AM labs. Discontinue Vancomycin and observe. May consider repeat imaging in a few weeks once the patient has been off antibiotics if there is regression of the wound. Wound care and activity per the Podiatry team. Qualifiers: Osteomyelitis type: subacute Osteomyelitis location: foot Laterality: right Qualified Code(s): M86.271 - Subacute osteomyelitis, right ankle and foot (4) Acute kidney injury Current Visit: Yes Status: Resolved Likely secondary to sepsis. Improved. Continue to trend. Dose-adjust antibiotics. Avoid additional nephrotoxins. (5) Lactic acidosis Current Visit: Yes Status: Acute Likely secondary to sepsis. Resolved. (6) Nonhealing surgical wound Current Visit: No Status: Acute Wound care per the podiatry team. Qualifiers: Encounter type: subsequent encounter Qualified Code(s): T81.89XD - Other complications of procedures, not elsewhere classified, subsequent encounter (7) Diabetes mellitus Current Visit: Yes Status: Chronic HgbA1C 7.9% in October. Blood sugars very high on admission--> ? DKA Recommend aggressive glucose monitoring and control to promote wound healing and prevent re-infection Management per the primary team. 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 Diabetes mellitus complication status: with skin complications Diabetes mellitus complication detail: with foot ulcer Qualified Code(s): E11.621 - Type 2 diabetes mellitus with foot ulcer; L97.509 - Non-pressure chronic ulcer of other part of unspecified foot with unspecified severity; L97.509 - Non-pressure chronic ulcer of other part of unspecified foot with unspecified severity; L97.509 - Non-pressure chronic ulcer of other part of unspecified foot with unspecified severity; L97.509 - Non-pressure chronic ulcer of other part of unspecified foot with unspecified severity; Z79.4 - departure clerk (current) use of insulin; Z79.4 - penitentiary (current) use of insulin; Z79.4 - departure clerk (current) use of insulin; Z79.4 - departure clerk (current ) use of insulin (8) Obesity (BMI 30.0-34.9) Current Visit: No Status: Chronic (9) Tobacco abuse Current Visit: Yes Status: Chronic - Subjective Interval history: Patient seen and examined. No acute events noted overnight. Patient resting in bed on high flow O2, required BIPAP overnight. States overall she feels better. Not currently short of breath. Denies cough this morning. Denies fevers, chills , or rigors. Denies chest pain, shortness of breath. Denies nausea, vomiting, diarrhea. Reports last BM yesterday. Kraft catheter removed and voiding without a problem. Denies abdominal pain or appetite changes. Denies pain at this time. Infect Dis PN-Objective Data - Labs CBC & Chem 7: 05/08/18 04:09 05/08/18 04:09 Labs: Laboratory Results - last 24 hr 05/07/18 05/07/18 05/08/18 15:33 19:10 01:54 WBC RBC Hgb Hct MCV MCH MCHC RDW Plt Count MPV Immature Gran % Seg Neutrophils % Lymphocytes % Monocytes % Eosinophils % Basophils % Neutrophils # Lymphocytes # Monocytes # Eosinophils # Basophils # Sodium Potassium Chloride Carbon Dioxide BUN Creatinine Est GFR ( Amer) Est GFR (Non-Af Amer) BUN/Creatinine Ratio Glucose POC Glucose 265 H 228 H 187 H Calculated Osmolality Calcium 05/08/18 05/08/18 05/08/18 04:09 04:09 05:34 WBC 12.3 H RBC 3.47 L Hgb 9.8 L Hct 30.4 L MCV 87.6 MCH 28.2 MCHC 32.2 RDW 15.9 H Plt Count 424 H MPV 9.2 L Immature Gran % 0.5 Seg Neutrophils % 79.0 Lymphocytes % 15.6 Monocytes % 3.8 Eosinophils % 1.1 Basophils % 0.0 Neutrophils # 9.7 H Lymphocytes # 1.9 Monocytes # 0.5 Eosinophils # 0.1 Basophils # 0.0 Sodium 138 Potassium 4.1 Chloride 106 Carbon Dioxide 27 BUN 45 H Creatinine 1.14 Est GFR ( Amer) > 60 Est GFR (Non-Af Amer) 51 L BUN/Creatinine Ratio 39 H Glucose 188 H POC Glucose 218 H Calculated Osmolality 303 H Calcium 8.9 Cultures: Cultures 05/05/18 03:25 Wound Culture - Final Right Foot No growth. 05/04/18 00:40 Blood Culture - Preliminary Peripheral Venipuncture Culture is incubating and being continuously monitored for growth. Final report to follow. 05/04/18 00:10 Blood Culture - Preliminary Central Venous Catheter Culture is incubating and being continuously monitored for growth. Final report to follow. Serology 05/04/18 05/04/18 Range/Units 14:20 00:01 Urine Color Yellow (Yellow) Urine Clarity Clear (Clear) Urine pH 6.0 (5.0-8.0) pH Units Ur Specific [place] 1.026 H (1.010-1.025) Urine Protein 100 H (Neg-Trace) mg/dL Urine Glucose (UA) >=1000 H (Normal) mg/dL Urine Ketones Negative (Negative) mg/dL Urine Blood Negative (Negative) Urine Nitrite Negative (Negative) Urine Bilirubin Negative (Negative) Urine Urobilinogen Normal (Normal) mg/dL Ur Leukocyte Esterase Negative (Negative) Urine Microscopic RBC 0-3 (0-3) per hpf Urine Microscopic WBC 0-3 (0-3) per hpf Ur Squamous Epith Cells Many H (None-Few) per lpf Urine Bacteria None Seen (None-Few) per hpf Hyaline Casts None Seen (None-Few) per lpf Chlamy pneumoniae PCR Not Detected (Not Detect) Adenovirus (PCR) Not Detected (Not Detect) B. pertussis DNA (PCR) Not Detected (Not Detect) B.parapertussis DNA PCR Not Detected (Not Detect) Coronavirus OC43 (PCR) Not Detected (Not Detect) Coronavirus HKU1 (PCR) Not Detected (Not Detect) Coronavirus 229E (PCR) Not Detected (Not Detect) Coronavirus NL63 (PCR) Not Detected (Not Detect) Human Metapneumovir PCR Not Detected (Not Detect) Influenza A (H1) PCR Not Detected (Not Detect) Influ A (H1N1/09) PCR Not Detected (Not Detect) Influenza A (H3) PCR Not Detected (Not Detect) Influenza A Untype (PCR) Not Detected (Not Detect) Influenza Type B (PCR) Not Detected (Not Detect) M.pneumoniae DNA (PCR) Not Detected (Not Detect) Parainfluenza 1 (PCR) Not Detected (Not Detect) Parainfluenza 2 (PCR) Not Detected (Not Detect) Parainfluenza 3 (PCR) Not Detected (Not Detect) Parainfluenza 4 (PCR) Not Detected (Not Detect) RSV (PCR) Not Detected (Not Detect) Entero/Rhino (PCR) Not Detected (Not Detect) Exam - Constitutional Vitals: Temp Pulse Resp BP Pulse Ox 97.5 F L 94 18 148/71 94 05/08/18 11:13 05/08/18 11:13 05/08/18 11:13 05/08/18 11:13 05/08/18 11:13 General appearance: average body habitus, cooperative, no acute distress - Head Head exam: Present: atraumatic, normal inspection, normocephalic - Eye Eye exam: Present: EOMI, normal appearance, PERRL Pupils: Present: normal accommodation - ENT ENT exam: Present: mucous membranes moist - Neck Neck exam: Present: normal inspection - Respiratory Respiratory exam: Present: CTAB. Absent: rales, respiratory distress, rhonchi, wheezes - Cardiovascular Cardiovascular exam: Present: RRR, +S1, +S2 - GI/Abdominal GI/Abdominal exam: Present: normal bowel sounds, soft. Absent: distended, tenderness - Extremities Exam Extremities exam: Present: normal inspection. Absent: joint swelling, pedal edema, tenderness Additional comments: Right foot dressing C/D/I. - Neurological Exam Neurological exam: Present: alert, oriented X3, no focal deficits - Psychiatric Psychiatric exam: Present: normal affect, normal mood - Skin Skin exam: Present: dry, intact, normal color, warm Consult Discharge Plan - Plan Referrals: Alejandro Le DO [Primary Care Provider] - - Attending Attestation I examined this patient and my medical decision-making was reviewed with the Resident Physician. I agree with the documented findings, disposition and treatment plan as described except to the extent set forth below.
[2018-05-08 14:14] LABS: C-Reactive Protein 57 mg/L (Less than 10)
--- NOTE | 2018-05-08 16:17 | Podiatry Progress Note ---
Date of Encounter: 05/08/18 Time of Encounter: 12:00 - Assessment and Plan (1) Osteomyelitis Current Visit: No Status: Chronic ASSESSMENT: Chronic osteomyelitis of the right calcaneus, right cuboid, and right navicular s/p surgical debridement during previous admission with application of graft jacket and wound vac therapy Wound vac was removed on admission 100 healthy granular tissue covering wound- no exposed bone Previous causative organisms include MRSA and Strep mitis. Most recently treated in with 9 weeks of IV vancomycin. Transitioned to PO Bactrim 04/25/18. Clinically, the wound looks great. Per ID will not need any further antibiotics at this time Recommend repeat imaging in 4-6 weeks Will need appointment 1 week after discharge with in wound care clinic Wound vac applied today at bedside Cleansed wound with saline, draped skin with tegaderm for protection Applied small black simplace sponge to 125mmHg 2 rise 10 fall Patient tolerated well, good seal noted without leak. Patient previously had wound vac at home, treatment is unchanged, will resume current prescribed therapy, should not need paperwork to be filled out again as wound location nor treatment has changed-will consult SW for further management Patient instructed to call office with any fevers, chills, n/v or flu like symptoms Patient will need post op shoe to bedside for discharge, state she has a diabetic cast boot at home. Patient was recommended ECF placement and declined. Qualifiers: Osteomyelitis type: subacute Osteomyelitis location: foot Laterality: right Qualified Code(s): M86.271 - Subacute osteomyelitis, right ankle and foot Subjective Principal diagnosis: Sepsis, respiratory failure Interval history: Patient is sitting up in bed eating lunch. Patient with known chronic osteomyelitis and ongoing wound vac therapy on outpatient basis with for a non healing wound of the right heel. Patient has a dressing dry and intact to the right foot, no c/o pain. No complaints of fevers, chills, n/v or flu like symptoms Objective - Vital Signs Vital Signs: Vital Signs Temp Pulse Resp BP Pulse Ox 05/08/18 16:05 97.7 F 110 19 160/92 96 05/08/18 11:13 97.5 F L 94 18 148/71 94 05/08/18 10:48 14 98 05/08/18 07:28 97.7 F 97 16 159/94 94 05/08/18 05:33 96.5 F L 84 14 155/96 96 05/08/18 03:35 10 96 05/08/18 01:51 97.4 F L 89 10 140/82 96 05/07/18 21:28 18 92 05/07/18 18:50 97.9 F 103 18 153/98 98 05/07/18 16:38 18 97 Intake and Output 05/08/18 05/08/18 05/08/18 07:59 15:59 23:59 Intake Total 0 / 0 720 / 720 240 / 240 Output Total 500 / 500 0 / 0 300 / 300 Balance -500 / -500 720 / 720 -60 / -60 Intake: Oral 0 / 0 720 / 720 240 / 240 Output: Urine 500 / 500 0 / 0 300 / 300 Other: Meal Lunch Percent of Meal Consumed 50% # Voids 0 Weight 84.7 kg Blood Glucose* 218 212 218 Patient Weight 05/08/18 23:59 Weight 84.7 kg - Exam Exam: Awake alert and oriented Pulses palpable DP/PT Warm toes to tibia No calf pain with manual compression minimal sensation to light or moderate touch Movement intact muscle strength 5/5 and equal bilaterally [id number] wound to right heel, 100% healthy granulation tissue to base, moderate amount of serous drainage noted. No surrounding warmth, edema or erythema. No odor. No appearance of infection. No probe to bone. - Lab Result Diagrams: 05/08/18 04:09 05/08/18 04:09 Labs: Abnormal lab results WBC 12.3 K/mcL (4.3-11.1) H 05/08/18 04:09 RBC 3.47 M/mcL (3.82-4.97) L 05/08/18 04:09 Hgb 9.8 g/dL (11.5-15.4) L 05/08/18 04:09 Hct 30.4 % (35.3-44.9) L 05/08/18 04:09 RDW 15.9 % (11.5-14.5) H 05/08/18 04:09 Plt Count 424 K/mcL (140-400) H 05/08/18 04:09 MPV 9.2 fL (9.4-12.4) L 05/08/18 04:09 Neutrophils # 9.7 K/mcL (1.6-8.9) H 05/08/18 04:09 ESR 97 mm/hr (0-15) H 05/08/18 04:09 PT 13.3 Seconds (9.4-12.1) H 05/04/18 00:10 ABG pCO2 47 mmHg (35-45) H 05/05/18 05:15 ABG pO2 72 mmHg (85-104) L 05/05/18 05:15 ABG Total CO2 28 mEq/L (20-26) H 05/05/18 05:15 ABG O2 Saturation 93 % (95-98) L 05/05/18 05:15 BUN 45 mg/dL (6-20) H 05/08/18 04:09 Est GFR (Non-Af Amer) 51 (> 60) L 05/08/18 04:09 BUN/Creatinine Ratio 39 (6-26) H 05/08/18 04:09 Glucose 188 mg/dL (70-105) H 05/08/18 04:09 POC Glucose 218 mg/dL (70-99) H 05/08/18 05:34 Hemoglobin A1c 10.6 % (-5.6) H 05/04/18 00:10 Calculated Osmolality 303 (280-300) H 05/08/18 04:09 Total Bilirubin 0.2 mg/dL (0.3-1.0) L 05/04/18 01:02 AST 53 Units/L (13-39) H 05/04/18 01:02 Alkaline Phosphatase 154 Units/L (34-104) H 05/04/18 01:02 Troponin I 0.07 ng/mL (< 0.04) H* 05/04/18 09:05 C-Reactive Protein 57 mg/L (Less than 10) H 05/08/18 04:09 B-Natriuretic Peptide 693 pg/mL (Less than 100) H 05/04/18 09:05 Albumin 3.2 g/dL (3.5-5.7) L 05/04/18 01:02 Globulin 3.8 g/dL (2.4-3.5) H 05/04/18 01:02 Albumin/Globulin Ratio 0.8 (1.1-2.2) L 05/04/18 01:02 Lipase < 3 Units/L (11-82) L 05/05/18 04:07 Beta-Hydroxybutyric Acd 0.34 mmol/L (0.02-0.27) H 05/04/18 09:05 Procalcitonin 1.00 ng/mL (<=0.07) H 05/04/18 16:00 Ur Specific [place] 1.026 (1.010-1.025) H 05/04/18 00:01 Urine Protein 100 mg/dL (Neg-Trace) H 05/04/18 00:01 Urine Glucose (UA) >=1000 mg/dL (Normal) H 05/04/18 00:01 Ur Squamous Epith Cells Many per lpf (None-Few) H 05/04/18 00:01 Vancomycin Trough 11 mcg/mL (5-10) H 05/04/18 04:45 Rheumatoid Factor 19 IU/mL (Less than 14) H 05/04/18 22:52 Microbiology, Last 48 Hours 05/05/18 03:25 Wound Culture - Final Right Foot No growth. Consult Discharge Plan - Plan Referrals: Alejandro Le DO [Primary Care Provider] -
[2018-05-08] MEDS ORDERED: Insulin LISPRO 300 UNITS/3 ML VIAL SQ SCH ×2 (17:00→21:00)
--- NOTE | 2018-05-08 18:47 | Internal Med Progress Note ---
<Neto Dale - Last Filed: 05/08/18 19:20> Date of Encounter: 05/08/18 Time of Encounter: 10:10 - Assessment and plan (1) MRSA bacteremia Current Visit: Yes Status: Suspected Assessment and plan: TTE was negative for vegetations during last hospital stay. Repeat blood cultures pending Consider repeat echocardiogram depending on blood culture results Vanc has been discontinued (2) Osteomyelitis Current Visit: No Status: Chronic Assessment and plan: -Chronic osteomyelitis of the right calcaneus, right cuboid, and right navicular s/p surgical debridement during previous admission with application of graft jacket and wound vac therapy As per podiatry: -Previous causative organisms include MRSA and Strep mitis. -Wound vac applied today at bedside - Patient instructed to call office with any fevers, chills, n/v or flu like symptoms - Patient will need post op shoe to bedside for discharge, state she has a diabetic cast boot at home. -Patient was recommended ECF placement and declined. -Abx has been discontinued Qualifiers: Osteomyelitis type: subacute Osteomyelitis location: foot Laterality: right Qualified Code(s): M86.271 - Subacute osteomyelitis, right ankle and foot (3) Diabetes mellitus Current Visit: Yes Status: Chronic Assessment and plan: -Recommend aggressive glucose monitoring . -continue medium dose SSI -continue Accu-checks Qualifiers: Diabetes mellitus type: type 2 Diabetes mellitus penitentiary insulin use: with penitentiary use Diabetes mellitus complication status: with skin complications Diabetes mellitus complication detail: with foot ulcer Qualified Code(s): E11.621 - Type 2 diabetes mellitus with foot ulcer; L97.509 - Non-pressure chronic ulcer of other part of unspecified foot with unspecified severity; L97.509 - Non-pressure chronic ulcer of other part of unspecified foot with unspecified severity; L97.509 - Non-pressure chronic ulcer of other part of unspecified foot with unspecified severity; L97.509 - Non-pressure chronic ulcer of other part of unspecified foot with unspecified severity; Z79.4 - long-term (current) use of insulin; Z79.4 - long-term (current) use of insulin; Z79.4 - electronics technology instructor (current) use of insulin; Z79.4 - long-term (current ) use of insulin (4) Acute kidney injury Current Visit: Yes Status: Resolved Assessment and plan: Likely secondary to sepsis. Improved- Cr trending down (currently 1.14) . Continue to trend. Avoid additional nephrotoxins. (5) HTN (hypertension) Current Visit: No Status: Chronic Assessment and plan: - current BP: 160/92 - given hydralazine . Qualifiers: Hypertension type: essential hypertension Qualified Code(s): I10 - Essential (primary) hypertension (6) Hyperkalemia Current Visit: Yes Status: Resolved Assessment and plan: -Resolved -Continue to monitor electrolytes (7) Hyperlipidemia Current Visit: No Status: Chronic Assessment and plan: Continue home meds Qualifiers: Hyperlipidemia type: unspecified Qualified Code(s): E78.5 - Hyperlipidemia , unspecified (8) DVT prophylaxis Current Visit: Yes Status: Chronic Assessment and plan: Heparin subcutaneous (9) Tobacco abuse Current Visit: Yes Status: Chronic Assessment and plan: Nicotine patch ordered. Importance or tobacco cessation discussed to promote wound healing (10) Severe sepsis due to methicillin resistant Staphylococcus aureus (MRSA) with acute organ dysfunction Current Visit: Yes Status: Acute Assessment and plan: Severe sepsis: The patient had two SIRS criteria plus lactic acidosis and ROGER and AMS. Etiology unclear: pneumonia vs. inhalation pneumonitis. Improved. WBC trending down from 18.3 to 12.3 , . Lactic acidosis resolved. ROGER improved. Blood cultures drawn 05/03/18 at [facility] are negative x 2 sets. Additional blood cultures drawn 05/04/18 at [facility] - Abx discontinued as per ID / Podiatry recommendations - Time Spent With Patient Total time spent is greater than 50% in coordination of care (as documented) at patient's floor/unit and/or counseling patient: - Subjective Interval history: patient seen and examined. no acute events noted. denies fever, chills, chest pain, SOB. - Constitutional Vitals: Temp Pulse Resp BP Pulse Ox 97.7 F 110 16 160/92 98 05/08/18 16:05 05/08/18 16:05 05/08/18 16:10 05/08/18 16:05 05/08/18 16:10 General appearance: Present: cooperative, mild distress (waering Bipap), A&O X 3 , pleasant, obese, answers questions appropriately - Head Head exam: Present: atraumatic, normocephalic - Eye Eye exam: Present: EOMI, conjuntiva pink, sclera anicteric - Neck Neck exam general surgery: Present: supple, trachea midline - Respiratory Respiratory exam: Present: wheezes. Absent: accessory muscle use, rales, respiratory distress, rhonchi - Cardiovascular Cardiovascular exam: Present: RRR, +S1, +S2. Absent: diastolic murmur, gallop, rubs, systolic murmur - GI/Abdominal GI/Abdominal exam: Present: soft, no peritoneal signs. Absent: distended, tenderness - Extremities Exam Extremities exam: Present: warm. Absent: cyanotic, pedal edema - Neurological Exam Neurological exam: Present: CN II-XII intact, oriented X3, no focal deficits. Absent: pronater drift, facial droop, speech deficit - Psychiatric Psychiatric exam: Present: normal affect, normal mood. Absent: anxious - Skin Skin exam: Present: dry, intact, normal color Internal Medicine: Result - Labs CBC & Chem 7: 05/08/18 04:09 05/08/18 04:09 Labs: Short CBC 05/08/18 Range/Units 04:09 WBC 12.3 H (4.3-11.1) K/mcL Hgb 9.8 L (11.5-15.4) g/dL Hct 30.4 L (35.3-44.9) % Plt Count 424 H (140-400) K/mcL Neutrophils # 9.7 H (1.6-8.9) K/mcL BMP 05/08/18 04:09 Sodium 138 Potassium 4.1 Chloride 106 Carbon Dioxide 27 BUN 45 H Creatinine 1.14 Glucose 188 H Calcium 8.9 - ABG Interpretation ABG results: ABG ABG pH 7.36 pH Units (7.32-7.45) 05/05/18 05:15 ABG pCO2 47 mmHg (35-45) H 05/05/18 05:15 ABG pO2 72 mmHg (85-104) L 05/05/18 05:15 ABG O2 Saturation 93 % (95-98) L 05/05/18 05:15 PT/INR, D-dimer PT 13.3 Seconds (9.4-12.1) H 05/04/18 00:10 Consult Discharge Plan - Plan Referrals: Alejandro Le DO [Primary Care Provider] - <Ariel Chung - Last Filed: 05/09/18 08:01> Date of Encounter: 05/08/18 - Assessment and plan (1) Osteomyelitis Current Visit: No Status: Chronic Qualifiers: Osteomyelitis type: subacute Osteomyelitis location: foot Laterality: right Qualified Code(s): M86.271 - Subacute osteomyelitis, right ankle and foot (2) Diabetes mellitus Current Visit: Yes Status: Chronic Qualifiers: Diabetes mellitus type: type 2 Diabetes mellitus penitentiary insulin use: with penitentiary use Diabetes mellitus complication status: with skin complications Diabetes mellitus complication detail: with foot ulcer Qualified Code(s): E11.621 - Type 2 diabetes mellitus with foot ulcer; L97.509 - Non-pressure chronic ulcer of other part of unspecified foot with unspecified severity; L97.509 - Non-pressure chronic ulcer of other part of unspecified foot with unspecified severity; L97.509 - Non-pressure chronic ulcer of other part of unspecified foot with unspecified severity; L97.509 - Non-pressure chronic ulcer of other part of unspecified foot with unspecified severity; Z79.4 - long-term (current) use of insulin; Z79.4 - long-term (current) use of insulin; Z79.4 - long-term (current) use of insulin; Z79.4 - electronics technology instructor (current ) use of insulin (3) Tobacco abuse Current Visit: Yes Status: Chronic (4) HTN (hypertension) Current Visit: No Status: Chronic Qualifiers: Hypertension type: essential hypertension Qualified Code(s): I10 - Essential (primary) hypertension (5) Acute kidney injury Current Visit: Yes Status: Resolved (6) Hyperkalemia Current Visit: Yes Status: Resolved (7) Hyperlipidemia Current Visit: No Status: Chronic Qualifiers: Hyperlipidemia type: unspecified Qualified Code(s): E78.5 - Hyperlipidemia , unspecified (8) DVT prophylaxis Current Visit: Yes Status: Acute (9) MRSA bacteremia Current Visit: Yes Status: Suspected (10) Severe sepsis due to methicillin resistant Staphylococcus aureus (MRSA) with acute organ dysfunction Current Visit: Yes Status: Acute - Time Spent With Patient Total time spent is greater than 50% in coordination of care (as documented) at patient's floor/unit and/or counseling patient: - Constitutional Vitals: Temp Pulse Resp BP Pulse Ox 98.0 F 84 18 160/91 93 05/09/18 05:44 05/09/18 05:44 05/09/18 05:44 05/09/18 05:44 05/09/18 05:44 Internal Medicine: Result - Labs CBC & Chem 7: 05/09/18 05:10 05/09/18 05:10 Labs: Short CBC 05/09/18 Range/Units 05:10 WBC 10.0 (4.3-11.1) K/mcL Hgb 10.3 L (11.5-15.4) g/dL Hct 30.9 L (35.3-44.9) % Plt Count 415 H (140-400) K/mcL Neutrophils # 8.6 (1.6-8.9) K/mcL BMP 05/08/18 05/09/18 04:09 05:10 Sodium 138 137 Potassium 4.1 4.6 Chloride 106 106 Carbon Dioxide 27 26 BUN 45 H 41 H Creatinine 1.14 1.04 Glucose 188 H 286 H Calcium 8.9 8.7 - ABG Interpretation ABG results: ABG ABG pH 7.36 pH Units (7.32-7.45) 05/05/18 05:15 ABG pCO2 47 mmHg (35-45) H 05/05/18 05:15 ABG pO2 72 mmHg (85-104) L 05/05/18 05:15 ABG O2 Saturation 93 % (95-98) L 05/05/18 05:15 PT/INR, D-dimer PT 13.3 Seconds (9.4-12.1) H 05/04/18 00:10 - Attending Attestation I examined this patient and my medical decision-making was reviewed with the Resident Physician Dr. Dale. I agree with the documented findings, disposition and treatment plan as described except to the extent set forth below. Ms. Larson is a 47 year old female with a past medical history of MRSA bacteremia, hypertension, hyperlipidemia, uncontrolled diabetes, and osteomyelitis of the right foot. The patient was admitted to the hospital May 03 for severe sepsis. The patient has a chronic nonhealing ulcer to the right heel that has been ongoing since July 2017 after she underwent a right toe graft placement that required offloading onto the heel. The patient has had multiple surgical procedures on the right foot. Back in December, she was noted to have generalized malaise and fatigue and tachycardia. She will watch drawn that revealed MRSA bacteremia 2 out of 2 sets and leukocytosis. She was treated with IV Vancomycin at that time. Podiatry did calcanectomy and graft placement by Dr. Snider on February 19 and placed her on 6 weeks o IV Vancomycin. Now she was admitted to ICU with sepsis, pneumonia , respiratory failure and Rt foot infection again. Pt was on BiPAP initially. Now she is breathing comfortably on 6 lit O2. She was transferred to [facility] for further care. She is alert, awake and O x 3. Denied any CP. Gen: A, A< O x 3 Chest: Diminished BS b/l, moderate wheezing, no rales Heart: S1S2 + RRR Ext: Rt foot wound vac + a/p 1. Sepsis - Pneumonia + Rt foot infection 2. Acute hypoxic resp failure 3. Acute pneumonia - mostly bacterial Duoneb + O2 PO Steroids repeat CXR in AM 4. Chronic osteomyelitis 5. Rt foot infection Wound cx - no growth Blood cx - no growth Improved ESR and CRP May not need abx ID is on board will check with ID about further abx management
[2018-05-08] MEDS: D5% in 0.9% NACL 500 ML IVC SCH (19:53)
[2018-05-08] MEDS ORDERED: Insulin DETEMIR 100 UNIT/ML X5UNITS SQ SCH (21:00)
[2018-05-09] MEDS: Ipratropium Neb 0.5 MG NEBULIZER IH SCH ×4 (03:49→21:26)
[2018-05-09] MEDS: Levalbuterol Neb 1.25 MG/3 ML IH SCH ×4 (03:49→21:26)
[2018-05-09] MEDS: *HR* Heparin 5,000 UNIT/ML VIAL SQ SCH ×2 (05:29→17:37)
[2018-05-09 05:38] LABS: Basophils % 0.1 %; Eosinophils % 0.3 %; Hematocrit 30.9 % (35.3-44.9); Hemoglobin 10.3 g/dL (11.5-15.4); Immature Granulocytes % 1.5 % (0-4); Lymphocytes # 0.8 K/mcL (0.6-4.6); Lymphocytes % 7.7 %; Mean Corpuscular HGB Conc 33.3 g/dL (31.6-35.5); Mean Corpuscular Hemoglobin 28.9 pg (28.0-33.3); Mean Corpuscular Volume 86.6 fL (83.0-100.0); Monocytes # 0.5 K/mcL (0.0-1.3); Monocytes % 4.6 %; Neutrophils # 8.6 K/mcL (1.6-8.9); Platelet Count 415 K/mcL (140-400); Red Blood Count 3.57 M/mcL (3.82-4.97); Red Cell Distribution Width 15.7 % (11.5-14.5); Segmented Neutrophils % 85.8 %
[2018-05-09 05:56] LABS: BUN/Creatinine Ratio 39 (6-26); Blood Urea Nitrogen 41 mg/dL (6-20); Calcium 8.7 mg/dL (8.6-10.3); Carbon Dioxide 26 mEq/L (23-29); Chloride 106 mEq/L (98-107); Glucose 286 mg/dL (70-105); Osmolality,Calculated 305 (280-300); Potassium 4.6 mEq/L (3.5-5.1); Sodium 137 mEq/L (136-145); eGFR For African Americans > 60 (> 60); eGFR For Non-African Americans 57 (> 60)
[2018-05-09] MEDS: Aspirin 81 MG TAB.CHEW PO SCH (08:14)
[2018-05-09] MEDS: ALPRAZolam 1 MG TABLET PO SCH ×3 (08:14→21:20)
[2018-05-09] MEDS: Gabapentin 400 MG CAPSULE PO SCH ×3 (08:14→21:20)
[2018-05-09] MEDS: FLUoxetine 20 MG CAPSULE PO SCH (08:15)
[2018-05-09] MEDS: Cholecalciferol (D-3) 1,000 UNIT TABLET PO SCH (08:16)
[2018-05-09] MEDS: predniSONE 20 MG TABLET PO SCH (08:16)
[2018-05-09] MEDS: Nicotine 7 MG PATCH.TD24 TD SCH (08:16)
[2018-05-09] MEDS: Lisinopril-HCTZ 20-12.5mg TABLET PO SCH (08:16)
[2018-05-09] MEDS: Insulin LISPRO 300 UNITS/3 ML VIAL SQ SCH ×4 (08:30→17:35)
[2018-05-09] MEDS ORDERED: NON-FORMULARY MEDICATION 1 EACH EACH (Fluoxetine Hcl [Prozac] 40 MG) PO SCH (09:00)
--- NOTE | 2018-05-09 09:15 | Internal Med Progress Note ---
<Neto Dale - Last Filed: 05/09/18 18:07> Date of Encounter: 05/09/18 Time of Encounter: 10:00 - Assessment and plan (1) Osteomyelitis Current Visit: No Status: Chronic Assessment and plan: -Chronic osteomyelitis of the right calcaneus, right cuboid, and right navicular s/p surgical debridement during previous admission with application of graft jacket and wound vac therapy As per podiatry: -Wound vac applied yesterday at bedside - Patient instructed to f/u with podiatry if she noticed any fevers, chills, n/ v or flu like symptoms - -Patient was recommended ECF placement and declined. Qualifiers: Osteomyelitis type: subacute Osteomyelitis location: foot Laterality: right Qualified Code(s): M86.271 - Subacute osteomyelitis, right ankle and foot (2) Diabetes mellitus Current Visit: Yes Status: Chronic Assessment and plan: -Hb A1C was 10.6 on admission -Recommend aggressive glucose monitoring . - discontinued oral hypoglcemic agents -continue on SSI , her Detemir has been increased from 15 to 25 units SQ BID , also added 4 units SQ LISPRO for better glycemic control -continue Accu-checks Qualifiers: Diabetes mellitus type: type 2 Diabetes mellitus intermodal customer service insulin use: with assisted use Diabetes mellitus complication status: with skin complications Diabetes mellitus complication detail: with foot ulcer Qualified Code(s): E11.621 - Type 2 diabetes mellitus with foot ulcer; L97.509 - Non-pressure chronic ulcer of other part of unspecified foot with unspecified severity; L97.509 - Non-pressure chronic ulcer of other part of unspecified foot with unspecified severity; L97.509 - Non-pressure chronic ulcer of other part of unspecified foot with unspecified severity; L97.509 - Non-pressure chronic ulcer of other part of unspecified foot with unspecified severity; Z79.4 - shelter (current) use of insulin; Z79.4 - shelter (current) use of insulin; Z79.4 - shelter (current) use of insulin; Z79.4 - shelter (current ) use of insulin (3) Acute kidney injury Current Visit: Yes Status: Resolved Assessment and plan: Likely secondary to sepsis. Improved- Cr trending down (currently 1.04) . Continue to trend. Avoid adding nephrotoxic agents. (4) Sepsis Current Visit: Yes Status: Resolved Assessment and plan: Severe sepsis: The patient had two SIRS criteria plus lactic acidosis and ROGER and AMS. Etiology unclear: pneumonia vs. inhalation pneumonitis. Improved. WBC elevated this morning, likely secondary to steroids. Tachycardia improved. Lactic acidosis resolved. ROGER improved. Blood cultures showed no growth. Qualifiers: Sepsis type: sepsis due to unspecified organism Qualified Code(s): A41.9 - Sepsis, unspecified organism (5) HTN (hypertension) Current Visit: No Status: Chronic Assessment and plan: - current systolic BP >160 - Increased Lisiopril - HCTZ (20-12.5) from 1PO to 2PO daily. Also added hydralazine 10mg PRN yesterday for HTN control if BP remains > 160 - most recent BP: 135/76 Qualifiers: Hypertension type: essential hypertension Qualified Code(s): I10 - Essential (primary) hypertension (6) Hyperkalemia Current Visit: Yes Status: Resolved Assessment and plan: -Resolved -Continue to monitor electrolytes (7) Hyperlipidemia Current Visit: No Status: Chronic Assessment and plan: Continue home meds Qualifiers: Hyperlipidemia type: unspecified Qualified Code(s): E78.5 - Hyperlipidemia , unspecified (8) DVT prophylaxis Current Visit: Yes Status: Acute Assessment and plan: Heparin subcutaneous (9) Tobacco abuse Current Visit: Yes Status: Chronic Assessment and plan: Nicotine patch ordered. Importance or tobacco cessation discussed to promote wound healing (10) Pneumonia Current Visit: Yes Status: Acute Assessment and plan: - CAP etiology unknown , patient was on Vancomycin initially which was discontnued - On physical exam she was afebrile, no tactile fremitus, no egophony, however she did have b/l wheezing, most recent CXR showed persistent bilateral lower lobe airspace disease potentially represent pneumonia, moreover she 's requiring 6L of high flow O2 - She's on Day 1 of levaquin 750mg PO, -Patient has been put on 40 mL q8h Solumedrol, lasix 20g IV - monitor patients vitals and evaluate for improvement in breath sounds. Monitor CBC - Incentive Spirometry - Qualifiers: Qualified Code(s): J18.9 - Pneumonia, unspecified organism - Time Spent With Patient Total time spent is greater than 50% in coordination of care (as documented) at patient's floor/unit and/or counseling patient: - Subjective Interval history: Patient seen and examined. no acute events noted. denies fever, chills, chest pain, SOB. there is a concern that she doesn't use O2 at home but now she needs 6L of O2 to prevent her from desaturating. It appears that her pneumonia hasn't resolved yet. Levaquin 75o mg PO has been added to her meds regimen. Solumedrol 40 ml q8h has been added and PO Prednisone ahs been discontinued. Adequate insulin changes have been made to account for hyperglycemia if any due to IV steroids.Patient has been explained that there's a possibility she might not be able to go home today because it appears that her PNA hasn't resolved and she still needs 6L of high flow O2 t keep her oxygen saturation above 88%. Patient endorses complete understanding of her situation - Constitutional Vitals: Temp Pulse Resp BP Pulse Ox 98.2 F 93 15 164/102 96 05/09/18 08:21 05/09/18 08:21 05/09/18 08:21 05/09/18 08:21 05/09/18 08:21 General appearance: Present: cooperative, mild distress (waering Bipap), A&O X 3 , pleasant, obese, answers questions appropriately - Head Head exam: Present: atraumatic, normal inspection, normocephalic - Respiratory Additional comments: bilateral wheezing on the right upper lobe, no crackles , or ronchi, - Cardiovascular Cardiovascular exam: Present: RRR, +S1, +S2 Additional comments: no gallops, murmurs or rubs - GI/Abdominal Additional comments: soft, non-tender, bowel sound normal, - Extremities Exam Additional comments: no pedal edema, motor function intact, pulses intact bilaterally - right foot dressing looks unremarkable. no evidence of any serosangunous discharge Internal Medicine: Result - Labs CBC & Chem 7: 05/09/18 05:10 05/09/18 05:10 Labs: Short CBC 05/09/18 Range/Units 05:10 WBC 10.0 (4.3-11.1) K/mcL Hgb 10.3 L (11.5-15.4) g/dL Hct 30.9 L (35.3-44.9) % Plt Count 415 H (140-400) K/mcL Neutrophils # 8.6 (1.6-8.9) K/mcL BMP 05/08/18 05/09/18 04:09 05:10 Sodium 138 137 Potassium 4.1 4.6 Chloride 106 106 Carbon Dioxide 27 26 BUN 45 H 41 H Creatinine 1.14 1.04 Glucose 188 H 286 H Calcium 8.9 8.7 - ABG Interpretation ABG results: ABG ABG pH 7.36 pH Units (7.32-7.45) 05/05/18 05:15 ABG pCO2 47 mmHg (35-45) H 05/05/18 05:15 ABG pO2 72 mmHg (85-104) L 05/05/18 05:15 ABG O2 Saturation 93 % (95-98) L 05/05/18 05:15 PT/INR, D-dimer PT 13.3 Seconds (9.4-12.1) H 05/04/18 00:10 Consult Discharge Plan - Plan Referrals: Alejandro Le DO [Primary Care Provider] - 05/14/18 10:00 am <Ariel Chung - Last Filed: 05/10/18 07:49> Date of Encounter: 05/09/18 - Assessment and plan (1) Osteomyelitis Current Visit: No Status: Chronic Qualifiers: Osteomyelitis type: subacute Osteomyelitis location: foot Laterality: right Qualified Code(s): M86.271 - Subacute osteomyelitis, right ankle and foot (2) Diabetes mellitus Current Visit: Yes Status: Chronic Qualifiers: Diabetes mellitus type: type 2 Diabetes mellitus intermodal customer service insulin use: with intermodal customer service use Diabetes mellitus complication status: with skin complications Diabetes mellitus complication detail: with foot ulcer Qualified Code(s): E11.621 - Type 2 diabetes mellitus with foot ulcer; L97.509 - Non-pressure chronic ulcer of other part of unspecified foot with unspecified severity; L97.509 - Non-pressure chronic ulcer of other part of unspecified foot with unspecified severity; L97.509 - Non-pressure chronic ulcer of other part of unspecified foot with unspecified severity; L97.509 - Non-pressure chronic ulcer of other part of unspecified foot with unspecified severity; Z79.4 - shelter (current) use of insulin; Z79.4 - long term care pharmacist (current) use of insulin; Z79.4 - shelter (current) use of insulin; Z79.4 - shelter (current ) use of insulin (3) Tobacco abuse Current Visit: Yes Status: Chronic (4) HTN (hypertension) Current Visit: No Status: Chronic Qualifiers: Hypertension type: essential hypertension Qualified Code(s): I10 - Essential (primary) hypertension (5) Acute kidney injury Current Visit: Yes Status: Resolved (6) Hyperkalemia Current Visit: Yes Status: Resolved (7) Hyperlipidemia Current Visit: No Status: Chronic Qualifiers: Hyperlipidemia type: unspecified Qualified Code(s): E78.5 - Hyperlipidemia , unspecified (8) DVT prophylaxis Current Visit: Yes Status: Acute (9) Sepsis Current Visit: Yes Status: Resolved Qualifiers: Sepsis type: sepsis due to unspecified organism Qualified Code(s): A41.9 - Sepsis, unspecified organism (10) Pneumonia Current Visit: Yes Status: Acute Qualifiers: Qualified Code(s): J18.9 - Pneumonia, unspecified organism - Time Spent With Patient Total time spent is greater than 50% in coordination of care (as documented) at patient's floor/unit and/or counseling patient: - Constitutional Vitals: Temp Pulse Resp BP Pulse Ox 98.1 F 94 18 183/111 94 05/10/18 06:57 05/10/18 06:57 05/10/18 06:57 05/10/18 06:57 05/10/18 06:57 Internal Medicine: Result - Labs CBC & Chem 7: 05/10/18 04:21 05/10/18 04:21 Labs: Short CBC 05/10/18 Range/Units 04:21 WBC 13.8 H (4.3-11.1) K/mcL Hgb 11.1 L (11.5-15.4) g/dL Hct 33.5 L (35.3-44.9) % Plt Count 448 H (140-400) K/mcL Neutrophils # 12.0 H (1.6-8.9) K/mcL BMP 05/10/18 04:21 Sodium 136 Potassium 4.6 Chloride 103 Carbon Dioxide 26 BUN 43 H Creatinine 1.04 Glucose 356 H Calcium 8.9 - ABG Interpretation ABG results: ABG ABG pH 7.36 pH Units (7.32-7.45) 05/05/18 05:15 ABG pCO2 47 mmHg (35-45) H 05/05/18 05:15 ABG pO2 72 mmHg (85-104) L 05/05/18 05:15 ABG O2 Saturation 93 % (95-98) L 05/05/18 05:15 PT/INR, D-dimer PT 13.3 Seconds (9.4-12.1) H 05/04/18 00:10 - Impressions Impressions Chest X-Ray 05/09/18 09:45 IMPRESSION: Persistent bilateral lower lobe airspace disease could represent pneumonia D/ / Konstantin Miguel MD / Konstantin Miguel MD Interpreting Provider: Konstantin Miguel MD - Attending Attestation I examined this patient and my medical decision-making was reviewed with the Resident Physician Dr. Dale. I agree with the documented findings, disposition and treatment plan as described except to the extent set forth below. Ms. Larson is a 47 year old female with a past medical history of MRSA bacteremia, hypertension, hyperlipidemia, uncontrolled diabetes, and osteomyelitis of the right foot. The patient was admitted to the hospital May 03 for severe sepsis. The patient has a chronic nonhealing ulcer to the right heel that has been ongoing since July 2017 after she underwent a right toe graft placement that required offloading onto the heel. The patient has had multiple surgical procedures on the right foot. Back in December, she was noted to have generalized malaise and fatigue and tachycardia. She will watch drawn that revealed MRSA bacteremia 2 out of 2 sets and leukocytosis. She was treated with IV Vancomycin at that time. Podiatry did calcanectomy and graft placement by Dr. Snider on February 19 and placed her on 6 weeks o IV Vancomycin. Now she was admitted to ICU with sepsis, pneumonia , respiratory failure and Rt foot infection again. Pt was on BiPAP initially. Now she is breathing comfortably on 6 lit O2. She was transferred to [facility] for further care. She is alert, awake and O x 3. Denied any CP. Gen: A, A< O x 3 Chest: Diminished BS b/l, moderate wheezing, no rales Heart: S1S2 + RRR Ext: Rt foot wound vac + a/p 1. Sepsis - Pneumonia + Rt foot infection 2. Acute hypoxic resp failure 3. Acute pneumonia - mostly bacterial Duoneb + O2 switch to IV steroids sill on 6 lit O2.. will try to wean her off the O2 today 4. Chronic osteomyelitis 5. Rt foot infection Wound cx - no growth Blood cx - no growth Improved ESR and CRP May not need abx ID is on board will check with ID about further abx management
[2018-05-09] MEDS ORDERED: Insulin LISPRO 300 UNITS/3 ML VIAL SQ SCH (09:58)
[2018-05-09] MEDS ORDERED: Lisinopril-HCTZ 20-12.5mg TABLET PO ONE (11:15)
--- NOTE | 2018-05-09 12:12 | Infectious Disease Progress No ---
Date of Encounter: 05/09/18 Time of Encounter: 10:00 - Assessment and Plan (1) Sepsis Current Visit: Yes Status: Resolved Severe sepsis: The patient had two SIRS criteria plus lactic acidosis and ROGER and AMS. Etiology unclear: pneumonia vs. inhalation pneumonitis. Improved. WBC elevated this morning, likely secondary to steroids. Tachycardia improved. Lactic acidosis resolved. ROGER improved. Blood cultures drawn 05/03/18 at [facility] are negative x 2 sets. Additional blood cultures drawn 05/04/18 at [facility] are negative x 2 sets. Qualifiers: Sepsis type: sepsis due to unspecified organism Qualified Code(s): A41.9 - Sepsis, unspecified organism (2) Respiratory failure Current Visit: Yes Status: Acute Etiology unclear: pulmonary edema vs. infectious vs. other. CXR completed 05/04/18 showed diffuse interstital prominence and possible hazy uniform airspace disease bilaterally that could reflect pulmonary edema vs. viral process vs. diffuse airway inflammation. CT chest showed bilateral diffuse interstitial pulmonary process concerning for atypical viral pneumonia vs. ARDS vs. noncardiogenic pulmonary edema vs. acute interstitial pneumonitis and nonspecific bilateral solid pulmonary nodules. Pulmonology consulted and following. Feel the patient's symptoms could be from inhalation pneumonitis. Diuresis and O2 per the pulmonology team. RIP negative. Check procalcitonin level. --> 1.00 No MRSA isolated on cultures and clinical picture not consistent with MRSA infection. Vancomycin stopped 05/09/18. Levaquin stopped by the pulmonology team. Continue to observe off antibiotics. No further recommendations from the ID team. Will sign off. Please re-consult if needed. Qualifiers: Chronicity: acute Respiratory failure complication: hypoxia Qualified Code(s): J96.01 - Acute respiratory failure with hypoxia (3) Osteomyelitis Current Visit: No Status: Chronic Chronic osteomyelitis of the right calcaneus, right cuboid, and right navicular. Previous causative organisms include MRSA and Strep mitis. Most recently treated in with 9 weeks of IV vancomycin. Transitioned to PO Bactrim 04/25/18. Clinically, the wound looks great. CT scan done at [facility] showed erosive changes of the talus and navicular and possible phlegmon/abscess. Podiatry consulted. CK level normal. Continue to observe off antibiotics. May consider repeat imaging in a few weeks once the patient has been off antibiotics if there is regression of the wound. Wound care and activity per the Podiatry team. Qualifiers: Osteomyelitis type: subacute Osteomyelitis location: foot Laterality: right Qualified Code(s): M86.271 - Subacute osteomyelitis, right ankle and foot (4) Acute kidney injury Current Visit: Yes Status: Resolved Likely secondary to sepsis. Improved. Continue to trend. Dose-adjust antibiotics. Avoid additional nephrotoxins. (5) Lactic acidosis Current Visit: Yes Status: Acute Likely secondary to sepsis. Resolved. (6) Nonhealing surgical wound Current Visit: No Status: Acute Wound care per the podiatry team. Qualifiers: Encounter type: subsequent encounter Qualified Code(s): T81.89XD - Other complications of procedures, not elsewhere classified, subsequent encounter (7) Diabetes mellitus Current Visit: Yes Status: Chronic HgbA1C 7.9% in October. Blood sugars very high on admission--> ? DKA Recommend aggressive glucose monitoring and control to promote wound healing and prevent re-infection Management per the primary team. Qualifiers: Diabetes mellitus type: type 2 Diabetes mellitus senior care insulin use: with terminal operator use Diabetes mellitus complication status: with skin complications Diabetes mellitus complication detail: with foot ulcer Qualified Code(s): E11.621 - Type 2 diabetes mellitus with foot ulcer; L97.509 - Non-pressure chronic ulcer of other part of unspecified foot with unspecified severity; L97.509 - Non-pressure chronic ulcer of other part of unspecified foot with unspecified severity; L97.509 - Non-pressure chronic ulcer of other part of unspecified foot with unspecified severity; L97.509 - Non-pressure chronic ulcer of other part of unspecified foot with unspecified severity; Z79.4 - terminal operator (current) use of insulin; Z79.4 - terminal operator (current) use of insulin; Z79.4 - shelter (current) use of insulin; Z79.4 - terminal operator (current ) use of insulin (8) Obesity (BMI 30.0-34.9) Current Visit: No Status: Chronic (9) Tobacco abuse Current Visit: Yes Status: Chronic - Subjective Interval history: Patient seen and examined. No acute events noted overnight. Patient resting in bed on high flow O2. States overall she feels better. Not currently short of breath. Denies cough this morning. Denies fevers, chills, or rigors. Denies chest pain, shortness of breath. Denies nausea, vomiting, diarrhea. Reports last BM yesterday. Kraft catheter removed and voiding without a problem. Denies abdominal pain or appetite changes. Denies pain at this time. Infect Dis PN-Objective Data - Labs CBC & Chem 7: 05/10/18 04:21 05/10/18 04:21 Labs: Laboratory Results - last 24 hr 05/08/18 05/08/18 05/08/18 04:09 04:09 09:02 WBC RBC Hgb Hct MCV MCH MCHC RDW Plt Count MPV Immature Gran % Seg Neutrophils % Lymphocytes % Monocytes % Eosinophils % Basophils % Neutrophils # Lymphocytes # Monocytes # Eosinophils # Basophils # ESR 97 H Sodium 138 Potassium 4.1 Chloride 106 Carbon Dioxide 27 BUN 45 H Creatinine 1.14 Est GFR ( Amer) > 60 Est GFR (Non-Af Amer) 51 L BUN/Creatinine Ratio 39 H Glucose 188 H POC Glucose 320 H Calculated Osmolality 303 H Calcium 8.9 C-Reactive Protein 57 H 05/08/18 05/08/18 05/08/18 11:12 16:07 21:58 WBC RBC Hgb Hct MCV MCH MCHC RDW Plt Count MPV Immature Gran % Seg Neutrophils % Lymphocytes % Monocytes % Eosinophils % Basophils % Neutrophils # Lymphocytes # Monocytes # Eosinophils # Basophils # ESR Sodium Potassium Chloride Carbon Dioxide BUN Creatinine Est GFR ( Amer) Est GFR (Non-Af Amer) BUN/Creatinine Ratio Glucose POC Glucose 212 H 218 H 501 H* Calculated Osmolality Calcium C-Reactive Protein 05/08/18 05/09/18 05/09/18 22:01 01:50 01:54 WBC RBC Hgb Hct MCV MCH MCHC RDW Plt Count MPV Immature Gran % Seg Neutrophils % Lymphocytes % Monocytes % Eosinophils % Basophils % Neutrophils # Lymphocytes # Monocytes # Eosinophils # Basophils # ESR Sodium Potassium Chloride Carbon Dioxide BUN Creatinine Est GFR ( Amer) Est GFR (Non-Af Amer) BUN/Creatinine Ratio Glucose POC Glucose 510 H* 403 H* 340 H Calculated Osmolality Calcium C-Reactive Protein 05/09/18 05/09/18 05:10 05:10 WBC 10.0 RBC 3.57 L Hgb 10.3 L Hct 30.9 L MCV 86.6 MCH 28.9 MCHC 33.3 RDW 15.7 H Plt Count 415 H MPV 9.0 L Immature Gran % 1.5 Seg Neutrophils % 85.8 Lymphocytes % 7.7 Monocytes % 4.6 Eosinophils % 0.3 Basophils % 0.1 Neutrophils # 8.6 Lymphocytes # 0.8 Monocytes # 0.5 Eosinophils # 0.0 Basophils # 0.0 ESR Sodium 137 Potassium 4.6 Chloride 106 Carbon Dioxide 26 BUN 41 H Creatinine 1.04 Est GFR ( Amer) > 60 Est GFR (Non-Af Amer) 57 L BUN/Creatinine Ratio 39 H Glucose 286 H POC Glucose Calculated Osmolality 305 H Calcium 8.7 C-Reactive Protein Cultures: Cultures 05/04/18 00:40 Blood Culture - Final Peripheral Venipuncture No growth. Final report. 05/04/18 00:10 Blood Culture - Final Central Venous Catheter No growth. Final report. 05/05/18 03:25 Wound Culture - Final Right Foot No growth. Serology 05/04/18 05/04/18 Range/Units 14:20 00:01 Urine Color Yellow (Yellow) Urine Clarity Clear (Clear) Urine pH 6.0 (5.0-8.0) pH Units Ur Specific [place] 1.026 H (1.010-1.025) Urine Protein 100 H (Neg-Trace) mg/dL Urine Glucose (UA) >=1000 H (Normal) mg/dL Urine Ketones Negative (Negative) mg/dL Urine Blood Negative (Negative) Urine Nitrite Negative (Negative) Urine Bilirubin Negative (Negative) Urine Urobilinogen Normal (Normal) mg/dL Ur Leukocyte Esterase Negative (Negative) Urine Microscopic RBC 0-3 (0-3) per hpf Urine Microscopic WBC 0-3 (0-3) per hpf Ur Squamous Epith Cells Many H (None-Few) per lpf Urine Bacteria None Seen (None-Few) per hpf Hyaline Casts None Seen (None-Few) per lpf Chlamy pneumoniae PCR Not Detected (Not Detect) Adenovirus (PCR) Not Detected (Not Detect) B. pertussis DNA (PCR) Not Detected (Not Detect) B.parapertussis DNA PCR Not Detected (Not Detect) Coronavirus OC43 (PCR) Not Detected (Not Detect) Coronavirus HKU1 (PCR) Not Detected (Not Detect) Coronavirus 229E (PCR) Not Detected (Not Detect) Coronavirus NL63 (PCR) Not Detected (Not Detect) Human Metapneumovir PCR Not Detected (Not Detect) Influenza A (H1) PCR Not Detected (Not Detect) Influ A (H1N1/09) PCR Not Detected (Not Detect) Influenza A (H3) PCR Not Detected (Not Detect) Influenza A Untype (PCR) Not Detected (Not Detect) Influenza Type B (PCR) Not Detected (Not Detect) M.pneumoniae DNA (PCR) Not Detected (Not Detect) Parainfluenza 1 (PCR) Not Detected (Not Detect) Parainfluenza 2 (PCR) Not Detected (Not Detect) Parainfluenza 3 (PCR) Not Detected (Not Detect) Parainfluenza 4 (PCR) Not Detected (Not Detect) RSV (PCR) Not Detected (Not Detect) Entero/Rhino (PCR) Not Detected (Not Detect) - Impressions Impressions Chest X-Ray 05/09/18 09:45 IMPRESSION: Persistent bilateral lower lobe airspace disease could represent pneumonia D/ / Konstantin Miguel MD / Konstantin Miguel MD Interpreting Provider: Konstantin Miguel MD Exam - Constitutional Vitals: Temp Pulse Resp BP Pulse Ox 98.2 F 93 15 164/102 96 05/09/18 08:21 05/09/18 08:21 05/09/18 08:21 05/09/18 08:21 05/09/18 08:21 General appearance: cooperative, no acute distress, obese - Head Head exam: Present: atraumatic, normal inspection, normocephalic - Eye Eye exam: Present: EOMI, normal appearance, PERRL Pupils: Present: normal accommodation - ENT ENT exam: Present: mucous membranes moist - Neck Neck exam: Present: normal inspection - Respiratory Respiratory exam: Present: CTAB. Absent: rales, respiratory distress, rhonchi, wheezes - Cardiovascular Cardiovascular exam: Present: RRR, +S1, +S2 - GI/Abdominal GI/Abdominal exam: Present: normal bowel sounds, soft. Absent: distended, tenderness - Extremities Exam Extremities exam: Absent: joint swelling, pedal edema, tenderness Additional comments: Right foot dressing C/D/I. - Neurological Exam Neurological exam: Present: alert, oriented X3, no focal deficits - Psychiatric Psychiatric exam: Present: normal affect, normal mood - Skin Skin exam: Present: dry, intact, normal color, warm Consult Discharge Plan - Plan Referrals: Alejandro Le DO [Primary Care Provider] - 05/14/18 10:00 am - Attending Attestation I examined this patient and my medical decision-making was reviewed with the Resident Physician. I agree with the documented findings, disposition and treatment plan as described except to the extent set forth below.
[2018-05-09] MEDS: levoFLOXacin 750 MG TABLET PO SCH (14:24)
[2018-05-09] MEDS: Furosemide 20 MG/2 ML VIAL IVP SCH (14:24)
[2018-05-09] MEDS ORDERED: MethylPREDNISolone 40 MG/ML VIAL IVP SCH (16:00)
[2018-05-09] MEDS: MethylPREDNISolone 40 MG/ML VIAL IVP SCH (17:37)
[2018-05-09] MEDS: Insulin DETEMIR 100 UNIT/ML X5UNITS SQ SCH (21:20)
[2018-05-10] MEDS: MethylPREDNISolone 40 MG/ML VIAL IVP SCH ×2 (00:53→08:19)
[2018-05-10] MEDS: Levalbuterol Neb 1.25 MG/3 ML IH SCH ×2 (04:01→10:44)
[2018-05-10] MEDS: Ipratropium Neb 0.5 MG NEBULIZER IH SCH ×2 (04:01→10:44)
[2018-05-10 04:44] LABS: Basophils % 0.2 %; Hematocrit 33.5 % (35.3-44.9); Hemoglobin 11.1 g/dL (11.5-15.4); Immature Granulocytes % 5.1 % (0-4); Lymphocytes # 0.7 K/mcL (0.6-4.6); Lymphocytes % 5.3 %; Mean Corpuscular HGB Conc 33.1 g/dL (31.6-35.5); Mean Corpuscular Hemoglobin 28.4 pg (28.0-33.3); Mean Corpuscular Volume 85.7 fL (83.0-100.0); Monocytes # 0.3 K/mcL (0.0-1.3); Monocytes % 2.4 %; Platelet Count 448 K/mcL (140-400); Red Blood Count 3.91 M/mcL (3.82-4.97); Red Cell Distribution Width 15.5 % (11.5-14.5)
[2018-05-10 05:00] LABS: BUN/Creatinine Ratio 41 (6-26); Blood Urea Nitrogen 43 mg/dL (6-20); Calcium 8.9 mg/dL (8.6-10.3); Carbon Dioxide 26 mEq/L (23-29); Chloride 103 mEq/L (98-107); Glucose 356 mg/dL (70-105); Osmolality,Calculated 307 (280-300); Potassium 4.6 mEq/L (3.5-5.1); Sodium 136 mEq/L (136-145); eGFR For African Americans > 60 (> 60); eGFR For Non-African Americans 57 (> 60)
[2018-05-10 05:16] LABS: Platelet Estimate Normal (Normal)
[2018-05-10] MEDS: *HR* Heparin 5,000 UNIT/ML VIAL SQ SCH (06:05)
[2018-05-10] MEDS: ALPRAZolam 1 MG TABLET PO SCH (08:19)
[2018-05-10] MEDS: Aspirin 81 MG TAB.CHEW PO SCH (08:19)
[2018-05-10] MEDS: Gabapentin 400 MG CAPSULE PO SCH (08:19)
[2018-05-10] MEDS: Nicotine 7 MG PATCH.TD24 TD SCH (08:19)
[2018-05-10] MEDS: Cholecalciferol (D-3) 1,000 UNIT TABLET PO SCH (08:19)
[2018-05-10] MEDS: FLUoxetine 20 MG CAPSULE PO SCH (08:19)
[2018-05-10] MEDS: Insulin LISPRO 300 UNITS/3 ML VIAL SQ SCH ×4 (08:20→11:47)
[2018-05-10] MEDS: Furosemide 20 MG/2 ML VIAL IVP SCH (08:20)
[2018-05-10] MEDS: Insulin DETEMIR 100 UNIT/ML X5UNITS SQ SCH (08:20)
[2018-05-10] MEDS ORDERED: Lisinopril-HCTZ 20-12.5mg TABLET PO SCH (09:00)
--- NOTE | 2018-05-10 09:26 | Discharge Summary ---
<Neto Dale - Last Filed: 05/10/18 15:37> - NOTES TO OUTPATIENT PROVIDER Notes to Outpatient Provider: Patient was admitted to the [facility] because of sepsis, had severe ROGER and AMS. Her etiology was either due to her osteomiltits vs pulmonary vs other. Her sepsis improved , and the wrap checker applied wound vac on her right foot. Her wound and blood cultures were negative. She was on levaquin 750 PO for her resolving CAP. Altogether she [facility] and will complete 2 more days of levaquin once she is discharged. I also gave her tapering dose of prednisone PO (40, 30, 20 and 10mg ) for 2 days each. I am also giving 1 month supply of metoprolol 25mg for her optimal blood pressure control Orders not resulted at time of discharge: Pending orders 05/04/18 19:09 Culture,Sputum with Gram Stain [RM] Routine Date of Encounter: 05/10/18 Time of Encounter: 10:20 - Discharge Diagnosis (1) Sepsis Priority: Primary Status: Resolved Assessment and Plan: Severe sepsis: The patient had two SIRS criteria plus lactic acidosis and ROGER and AMS. Etiology unclear: pneumonia vs. inhalation pneumonitis. Improved. WBC elevated this morning, likely secondary to steroids. Tachycardia improved. Lactic acidosis resolved. ROGER improved. Blood cultures showed no growth. Qualifiers: Sepsis type: sepsis due to unspecified organism Qualified Code(s): A41.9 - Sepsis, unspecified organism (2) Osteomyelitis Priority: Secondary Status: Chronic Qualifiers: Osteomyelitis type: subacute Osteomyelitis location: foot Laterality: right Qualified Code(s): M86.271 - Subacute osteomyelitis, right ankle and foot (3) Diabetes mellitus Priority: Secondary Status: Chronic Qualifiers: Diabetes mellitus type: type 2 Diabetes mellitus long term care pharmacist insulin use: with long term care pharmacist use Diabetes mellitus complication status: with skin complications Diabetes mellitus complication detail: with foot ulcer Qualified Code(s): E11.621 - Type 2 diabetes mellitus with foot ulcer; L97.509 - Non-pressure chronic ulcer of other part of unspecified foot with unspecified severity; L97.509 - Non-pressure chronic ulcer of other part of unspecified foot with unspecified severity; L97.509 - Non-pressure chronic ulcer of other part of unspecified foot with unspecified severity; L97.509 - Non-pressure chronic ulcer of other part of unspecified foot with unspecified severity; Z79.4 - detention (current) use of insulin; Z79.4 - detention (current) use of insulin; Z79.4 - long term care administrator (current) use of insulin; Z79.4 - detention (current ) use of insulin (4) Acute kidney injury Priority: Secondary Status: Resolved (5) HTN (hypertension) Priority: Secondary Status: Chronic Qualifiers: Hypertension type: essential hypertension Qualified Code(s): I10 - Essential (primary) hypertension (6) Hyperkalemia Priority: Secondary Status: Resolved (7) Hyperlipidemia Priority: Secondary Status: Chronic Qualifiers: Hyperlipidemia type: unspecified Qualified Code(s): E78.5 - Hyperlipidemia , unspecified (8) Tobacco abuse Priority: Secondary Status: Chronic (9) Pneumonia Priority: Secondary Status: Acute Qualifiers: Pneumonia type: due to unspecified organism Laterality: bilateral Lung location: unspecified part of lung Qualified Code(s): J18.9 - Pneumonia, unspecified organism Hospital course: Ms. Larson is a 47 year old female who was admitted to our inpatient unit because of severe sepsis, had severe ROGER and AMS. Her etiology was either due to her osteomyelitis vs pulmonary vs other. Her sepsis improved , and the wrap checker applied wound vac on her right foot. Her wound and blood cultures were negative. She was on levaquin 750 PO for her resolving CAP. Altogether she has completed 5 days of Levaquin in the hospital and will complete 2 more days of levaquin once she is discharged. I also gave her tapering dose of prednisone PO (40, 30, 20 and 10mg) for 2 days each. Discharge discussed with: patient - Time Spent with Patient Total time spent providing and/or coordinating discharge services: - Discharge Medications Prescriptions: levoFLOXacin [Levaquin] 750 mg PO Q24H #2 tablet Metoprolol [Lopressor] 25 mg PO BID #30 tablet predniSONE [PredniSONE] 10 mg PO DAILY #20 tablet Home Medications: Atorvastatin [Lipitor] 20 mg PO QPM 06/11/15 [History] Cholecalciferol (Vitamin D3) [Vitamin D3] 10,000 unit PO WE 06/11/15 [History] Ibuprofen [Motrin] 800 mg PO TID PRN 06/11/15 [History] Insulin ASPART [NovoLOG] 0 - 12 unit SQ TID PRN 06/11/15 [History] Insulin Glargine,Hum.rec.anlog [Lantus Solostar] 35 units SQ QPM 06/11/15 [ History] Quetiapine Fumarate [Seroquel] 100 mg PO HS 06/11/15 [History] Aspirin [Lo-Dose Aspirin EC] 81 mg PO DAILY 10/10/17 [History] Lisinopril-HCTZ 20-12.5 [Prinzide 20-12.5] 1 tab PO DAILY 10/10/17 [History] Omeprazole [PriLOSEC] 40 mg PO DAILY 10/10/17 [History] Gabapentin [Neurontin] 800 mg PO TID 11/23/17 [History] Liraglutide [Victoza 2-Yunier] 1.2 mg SQ DAILY 01/09/18 [History] FLUoxetine HCl [Prozac] 40 mg PO QAM 02/15/18 [History] Metoprolol [Lopressor] 25 mg PO BID #30 tablet 05/10/18 [Rx] Nicotine Patch [Nicoderm] 7 mg TD DAILY patch.td24 05/10/18 [Rx] levoFLOXacin [Levaquin] 750 mg PO Q24H #2 tablet 05/10/18 [Rx] predniSONE [PredniSONE] 10 mg PO DAILY #20 tablet 05/10/18 [Rx] Allergies/Adverse Reactions: 3 Allergy/AdvReac Type Severity Reaction Status Date / Time Penicillins Allergy Swelling Verified 11/23/17 12:37 of Lip/Tongue/Throat Date of admission: 05/04/18 03:16 Primary care physician: Alejandro Le Consults: 05/04/18 00:05 Consult to Wound Care [CONS] Routine Reason for Consult: RLE wound vac Time Notified: 00:05 Call Completed: No 05/04/18 02:16 Consult to Infectious Diseases [CONS] Routine Consulting Provider: Infectious [facility] Reason for Consult: Diabetic patient with h/o osteomyelitis, known to practice Time Notified: 08:03 Call Completed: Yes Consult to Podiatry [CONS] Routine Consulting Provider: [facility] Reason for Consult: Diabetic patient with h/o osteomyelitis, known to practice Time Notified: 08:03 Call Completed: Yes 05/04/18 02:36 Consult to Critical Care [CONS] Routine Consulting Provider: [facility] Reason for Consult: Multisystem organ failure Call Completed: No - Constitutional Vitals: Temp Pulse Resp BP Pulse Ox 98.1 F 94 18 163/91 94 05/10/18 06:57 05/10/18 06:57 05/10/18 06:57 05/10/18 08:11 05/10/18 06:57 General appearance: Present: cooperative, mild distress (waering Bipap), A&O X 3 , pleasant, obese, answers questions appropriately - Respiratory Respiratory exam: Present: CTAB Additional comments: no egophony, nl percussion, no tactile fremitus - Cardiovascular Additional comments: RRR, S1S2nl, no carotid bruits - GI/Abdominal Additional comments: soft, non tender, non distended - Extremities Exam Additional comments: her R diabetic foot dressing looks good w/o any exudates, motor function intact , normal ROM for her condition - Patient Status Disposition: Home Health Service Functional capacity at discharge: uses cane/walker Overall status at discharge: patient is progressing back to baseline - Discharge Instructions Instructions: Using Oxygen at Home (DC) Follow Up With: Alejandro Le DO [Primary Care Provider] - 05/14/18 10:00 am - Diet and Activity Activity: increase activity as tolerated, wear oxygen at all times Diet: diabetic diet <Ariel Chung - Last Filed: 05/10/18 17:44> Orders not resulted at time of discharge: Pending orders 05/04/18 19:09 Culture,Sputum with Gram Stain [RM] Routine Date of Encounter: 05/10/18 - Discharge Diagnosis (1) Osteomyelitis Status: Chronic Qualifiers: Osteomyelitis type: subacute Osteomyelitis location: foot Laterality: right Qualified Code(s): M86.271 - Subacute osteomyelitis, right ankle and foot (2) Diabetes mellitus Status: Chronic Qualifiers: Diabetes mellitus type: type 2 Diabetes mellitus long term care pharmacist insulin use: with mcc use Diabetes mellitus complication status: with skin complications Diabetes mellitus complication detail: with foot ulcer Qualified Code(s): E11.621 - Type 2 diabetes mellitus with foot ulcer; L97.509 - Non-pressure chronic ulcer of other part of unspecified foot with unspecified severity; L97.509 - Non-pressure chronic ulcer of other part of unspecified foot with unspecified severity; L97.509 - Non-pressure chronic ulcer of other part of unspecified foot with unspecified severity; L97.509 - Non-pressure chronic ulcer of other part of unspecified foot with unspecified severity; Z79.4 - detention (current) use of insulin; Z79.4 - detention (current) use of insulin; Z79.4 - detention (current) use of insulin; Z79.4 - detention (current ) use of insulin (3) Tobacco abuse Status: Chronic (4) HTN (hypertension) Status: Chronic Qualifiers: Hypertension type: essential hypertension Qualified Code(s): I10 - Essential (primary) hypertension (5) Acute kidney injury Status: Resolved (6) Hyperkalemia Status: Resolved (7) Hyperlipidemia Status: Chronic Qualifiers: Hyperlipidemia type: unspecified Qualified Code(s): E78.5 - Hyperlipidemia , unspecified (8) Sepsis Status: Resolved Qualifiers: Sepsis type: sepsis due to unspecified organism Qualified Code(s): A41.9 - Sepsis, unspecified organism (9) Pneumonia Status: Acute Qualifiers: Pneumonia type: due to unspecified organism Laterality: bilateral Lung location: unspecified part of lung Qualified Code(s): J18.9 - Pneumonia, unspecified organism Hospital course: Ms. Larson is a 47 year old female - Time Spent with Patient Total time spent providing and/or coordinating discharge services: Date of admission: 05/04/18 03:16 Primary care physician: Alejandro Le Consults: 05/04/18 00:05 Consult to Wound Care [CONS] Routine Reason for Consult: RLE wound vac Time Notified: 00:05 Call Completed: No 05/04/18 02:16 Consult to Infectious Diseases [CONS] Routine Consulting Provider: [facility] Reason for Consult: Diabetic patient with h/o osteomyelitis, known to practice Time Notified: 08:03 Call Completed: Yes Consult to Podiatry [CONS] Routine Consulting Provider: [facility] Reason for Consult: Diabetic patient with h/o osteomyelitis, known to practice Time Notified: 08:03 Call Completed: Yes 05/04/18 02:36 Consult to Critical Care [CONS] Routine Consulting Provider: [facility] Reason for Consult: Multisystem organ failure Call Completed: No - Constitutional Vitals: Temp Pulse Resp BP Pulse Ox 98.2 F 83 16 135/98 92 05/10/18 11:24 05/10/18 11:24 05/10/18 11:24 05/10/18 11:24 05/10/18 11:44 - Attending Attestation I examined this patient and my medical decision-making was reviewed with the Resident Physician Dr. Dale. I agree with the documented findings, disposition and treatment plan as described except to the extent set forth below. Ms. Larson is a 47 year old female with a past medical history of MRSA bacteremia, hypertension, hyperlipidemia, uncontrolled diabetes, and osteomyelitis of the right foot. The patient was admitted to the hospital May 03 for severe sepsis. The patient has a chronic non healing ulcer to the right heel that has been ongoing since July 2017 after she underwent a right toe graft placement that required offloading onto the heel. The patient has had multiple surgical procedures on the right foot. Back in December, she was noted to have generalized malaise and fatigue and tachycardia. She will watch drawn that revealed MRSA bacteremia 2 out of 2 sets and leukocytosis. She was treated with IV Vancomycin at that time. Podiatry did calcanectomy and graft placement by Dr. Snider on February 19 and placed her on 6 weeks o IV Vancomycin. Now she was admitted to ICU with sepsis, pneumonia , respiratory failure and Rt foot infection again. Pt was on BiPAP initially. . She was transferred to [facility] for further care. She is alert, awake and O x 3. Denied any CP. Now she is breathing comfortably on 1 lit O2 Gen: A, A, O x 3 Chest: Diminished BS b/l, moderate wheezing, no rales Heart: S1S2 + RRR Ext: Rt foot wound vac + a/p 1. Sepsis - Pneumonia + Rt foot infection 2. Acute hypoxic resp failure 3. Acute pneumonia - mostly bacterial Duoneb + O2 Improved currently on 1 lit o2 need home O2 eval before she goes home 4. Chronic osteomyelitis 5. Rt foot infection Wound cx - no growth Blood cx - no growth Improved ESR and CRP Do not need abx any more Medically stable to d/c home today
[2018-05-10 11:28] VITALS: BP 135/98
[2018-05-10] MEDS: levoFLOXacin 750 MG TABLET PO SCH (11:46)
--- NOTE | 2018-05-10 14:46 | Physician Discharge Referral ---
Home Health/Hosp Referral Info Transfer to: Home Health Attending Provider: Dr Chung Provider in Charge Post Discharge: PCP - Diagnosis (1) Sepsis Priority: Primary Status: Resolved (2) Pneumonia Priority: Secondary Status: Acute (3) Osteomyelitis Priority: Secondary Status: Chronic (4) Diabetes mellitus Priority: Secondary Status: Chronic (5) Acute kidney injury Priority: Secondary Status: Resolved (6) HTN (hypertension) Priority: Secondary Status: Chronic (7) Hyperkalemia Priority: Secondary Status: Resolved (8) Hyperlipidemia Priority: Secondary Status: Chronic (9) Tobacco abuse Priority: Secondary Status: Chronic - Respiratory Orders Oxygen / L per min, None Smoking Cessation: Smoking cessation has been advised. For more information, call the [place] Tobacco Quit Line at 7-008-WKLJ-NOW. - Diet/Nutrition Diet/Nutrition Orders: No Concentrated Sweets - Activity Activity Orders: Walker - Services Needed Following services are medically necessary services: Nursing, Home Health Aide, Physical Therapy, Occupational Therapy - Transfer Medications Prescriptions: levoFLOXacin [Levaquin] 750 mg PO Q24H #2 tablet Metoprolol [Lopressor] 25 mg PO BID #30 tablet predniSONE [PredniSONE] 10 mg PO DAILY #20 tablet Home Medications: Atorvastatin [Lipitor] 20 mg PO QPM 06/11/15 [History] Cholecalciferol (Vitamin D3) [Vitamin D3] 10,000 unit PO WE 06/11/15 [History] Ibuprofen [Motrin] 800 mg PO TID PRN 06/11/15 [History] Insulin ASPART [NovoLOG] 0 - 12 unit SQ TID PRN 06/11/15 [History] Insulin Glargine,Hum.rec.anlog [Lantus Solostar] 35 units SQ QPM 06/11/15 [ History] Quetiapine Fumarate [Seroquel] 100 mg PO HS 06/11/15 [History] Aspirin [Lo-Dose Aspirin EC] 81 mg PO DAILY 10/10/17 [History] Lisinopril-HCTZ 20-12.5 [Prinzide 20-12.5] 1 tab PO DAILY 10/10/17 [History] Omeprazole [PriLOSEC] 40 mg PO DAILY 10/10/17 [History] Gabapentin [Neurontin] 800 mg PO TID 11/23/17 [History] Liraglutide [Victoza 2-Yunier] 1.2 mg SQ DAILY 01/09/18 [History] FLUoxetine HCl [Prozac] 40 mg PO QAM 02/15/18 [History] Metoprolol [Lopressor] 25 mg PO BID #30 tablet 05/10/18 [Rx] Nicotine Patch [Nicoderm] 7 mg TD DAILY patch.td24 05/10/18 [Rx] levoFLOXacin [Levaquin] 750 mg PO Q24H #2 tablet 05/10/18 [Rx] predniSONE [PredniSONE] 10 mg PO DAILY #20 tablet 05/10/18 [Rx] Allergies/Adverse Reactions: 3 Allergy/AdvReac Type Severity Reaction Status Date / Time Penicillins Allergy Swelling Verified 11/23/17 12:37 of Lip/Tongue/Throat Certification: Further, I certify that my clinical findings support that this patient is homebound (i.e. absences from home require considerable and taxing effort and are for medical reasons or sikh services or infrequently or short duration when for other reasons) because: Homebound Reason: Patient requires assistance of a person or device to safely leave home, Leaving home requires considerable and taxing effort due to condition, Severity of cardiac or pulmonary status limits activity tolerance Attestation: My signature below is to certify that this patient is under my care and that I, or nurse practitioner, or a physician's child center assistant working with me, has a face-to -face encounter with this patient.
== END 2018-05-10 15:13 | disposition home health service (06) | DRG 871 ==
LOC: ICNU → 2NENU 05-07 18:55
PROVIDERS: ADMIT Internal Medicine; ATTEND Internal Medicine

== ENCOUNTER 2018-08-10 12:35 | Inpatient (IN) ==
[2018-08-10] MEDS ORDERED: Naloxone 0.4 MG/ML INJ IVP PRN (15:21)
[2018-08-10] MEDS ORDERED: D5% in Water 1,000 ML IVC PRN (15:30)
[2018-08-10] MEDS ORDERED: Dextrose Gel 15 GM/37.5 ML TUBE PO PRN ×2 (15:30)
[2018-08-10] MEDS ORDERED: *HR* Heparin 5,000 UNIT/ML VIAL SQ SCH (16:00)
[2018-08-10 16:04] LABS: Adenovirus Not Detected (Not Detect); Bordetella Pertussis Not Detected (Not Detect); Chlamydophila pneumoniae Not Detected (Not Detect); Coronavirus 229E Not Detected (Not Detect); Coronavirus HKU1 Not Detected (Not Detect); Coronavirus NL63 Not Detected (Not Detect); Coronavirus OC43 Not Detected (Not Detect); Human Metapneumovirus Not Detected (Not Detect); Human Rhinovirus/Enterovirus Not Detected (Not Detect); Influenza A Subtype 2009 H1 Not Detected (Not Detect); Influenza A Untypeable Not Detected (Not Detect); Influenza B Not Detected (Not Detect); Mycoplasma pneumoniae Not Detected (Not Detect); Parainfluenza Virus 1 Not Detected (Not Detect); Parainfluenza Virus 2 Not Detected (Not Detect); Parainfluenza Virus 3 Not Detected (Not Detect); Parainfluenza Virus 4 Not Detected (Not Detect); Respiratory Syncytial Virus Not Detected (Not Detect)
--- NOTE | 2018-08-10 16:11 | Pulmonology History & Physical ---
<Chip Matt W - Last Filed: 08/10/18 16:26> Date of Encounter: 08/10/18 History of Present Illness HPI: Ms. Larson is a 47 year old female Medications and Allergies Insulin Glargine,Hum.rec.anlog [Lantus Solostar] 32 units SQ HS 06/11/15 [ History] Aspirin [Lo-Dose Aspirin EC] 81 mg PO DAILY 10/10/17 [History] Lisinopril-HCTZ 20-12.5 [Prinzide 20-12.5] 2 tab PO DAILY 10/10/17 [History] Omeprazole [PriLOSEC] 20 mg PO DAILY 10/10/17 [History] Gabapentin [Neurontin] 800 mg PO TID 11/23/17 [History] Liraglutide [Victoza 2-Yunier] 1.2 mg SQ DAILY 01/09/18 [History] FLUoxetine HCl [Prozac] 40 mg PO QAM 02/15/18 [History] Metformin HCl [Metformin HCl ER] 500 mg PO BID 06/28/18 [History] Quetiapine Fumarate [SEROquel] 100 mg PO HS 06/28/18 [History] Cholecalciferol (Vitamin D3) [Vitamin D3] 10,000 unit PO WE 08/10/18 [History] Insulin ASPART [NovoLOG] 0 - 12 unit SQ TIDWM 08/10/18 [History] Metoprolol [Lopressor] 25 mg PO BID 08/10/18 [History] 3 Allergy/AdvReac Type Severity Reaction Status Date / Time Penicillins Allergy Swelling Verified 06/20/18 10:51 of Lip/Tongue/Throat All Systems: The remainder of the systems were reviewed and are negative Physical Examination Vital Signs: Vital Signs, Last 4 Hours Temp Pulse Resp BP Pulse Ox 08/10/18 15:00 98 19 119/72 97 08/10/18 14:30 99.2 F 103 18 141/88 99 - Attending Attestation I examined this patient and my medical decision-making was reviewed with the Resident Physician. I agree with the documented findings, disposition and treatment plan as described except to the extent set forth below. We independently had [id number] contact with the patient Patient seen and examined at bedside Labs, radiology, chart personally reviewed. SAMPLE TAILOR: Awake and alert no evidence of encephalopathy or focal neurological deficit Pulm: Acute hypoxic respiratory failure with evidence of multifocal infiltrates which is likely infection versus cardiogenic pulmonary edema she has had some upper respiratory symptoms and we will treat with broad-spectrum antibiotics but this may be a manifestation of pulmonary edema after diuresis outside facility she has been able to be weaned off BiPAP and now is on the high flow nasal cannula we can use BiPAP as needed for work of breathing or hypoxemia. She does have an elevated d-dimer at the outside facility to my pretest probability of venous thromboembolism is low as her infiltrates likely explain her hypoxemia and she has been responding to an intervention to treat that her d -dimer could also be elevated related to her chronic foot ulcer and surgical intervention she also has a acute kidney injury and could not send for a contrasted CT scan and I felt that the risk-benefit of empiric anticoagulation in this situation favors monitoring and treatment for what appears to be heart failure versus pneumonia or combination of the 2 Cards: Blood pressure stable she is mildly tachycardic on monitor which is sinus and likely related to respiratory failure troponin was normal at the outside facility BNP was significantly elevated which may be indicative of acute heart failure we will send for a stat echocardiogram repeat BNP here she responded well to Lasix diuresis we could consider giving another dose of Lasix pending results of her renal function panel. We will also recheck her lactate is unclear why this was elevated the outside facility she was not hypotensive this may be related to respiratory failure alternatively this could reflect severe sepsis. We will avoid aggressive volume resuscitation as infection is responded to diuresis at the outside facility if evidence of hypotension or lactate continues to worsen we could consider volume resuscitation but in the present clinical context I think that this would be contraindicated GI: Continue to monitor Nutrition: Diabetic diet will be advanced as tolerated Renal: Acute kidney injury possibly prerenal azotemia versus renal vascular congestion from heart failure pending repeat renal function panel after diuresis. UOP Monitored, Cont to Trend sCr and monitor Electrolytes. ID: Focal pneumonia this may also be a stress response she has been covered with broad-spectrum antimicrobials including atypical and MRSA coverage send respiratory infection panel repeat sputum culture and blood culture here. We will de-escalate based upon clinical course Heme/Onc: DVT prophylaxis given Endo: She has a history of poorly controlled type 2 diabetes with hyperglycemia on admission we will give her basal bolus dosing of insulin there is no evidence of DKA patient takes 50 units of Lantus at home and we will give her 35 units of Levemir pending response and oral intake Integ/MSK: Skin Care per routine ICU Nursing Protocol to prevent ulcers. She has a chronic right diabetic foot ulcer which is being followed by podiatry status post skin grafting we will notify her primary junior assistant manager about her arrival to the hospital I do not think that this is actively contributing to her medical course as far as today's presentation Lines: All lines examined without evidence of infection : Dispo: We will monitor the ICU overnight CODE: Full <Faraz Colvin - Last Filed: 08/10/18 18:33> Date of Encounter: 08/10/18 Time of Encounter: 16:11 Assessment and Plan (1) Respiratory failure Current visit: No Status: Acute Patient is currently alert and oriented, conversational in full sentences Resting comfortably at 98% oxygen saturation on 8 L/m via high flow nasal cannula We will utilize BiPAP as tolerated by the patient for clinical indications Qualifiers: Chronicity: acute Respiratory failure complication: hypoxia Qualified Code(s): J96.01 - Acute respiratory failure with hypoxia (2) Sepsis Current visit: Yes Status: Acute Patient is tachycardic, tachypneic, with leukocytosis and a presumed source of infection, which meets sepsis criteria White blood cell count 22.5 Lactic acid is normal at 2.1 Likely due to pneumonia Patient received cefepime, levofloxacin, and vancomycin at [facility] on 08/10/2018 Continue vancomycin and levofloxacin Continue to monitor with laboratory values and chest x-rays in conjunction with medical assessment Qualifiers: Sepsis type: sepsis due to unspecified organism Qualified Code(s): A41.9 - Sepsis, unspecified organism (3) Pneumonia Current visit: No Status: Acute Chest x-ray shows diffuse ground glass opacities bilaterally Concerning for pneumonia or versus pulmonary edema Patient has diffuse rhonchorous lung sounds on physical exam Respiratory panel negative Patient on broad-spectrum antibiotic coverage with vancomycin and levofloxacin Continue to monitor Qualifiers: Pneumonia type: due to unspecified organism Laterality: bilateral Lung location: unspecified part of lung Qualified Code(s): J18.9 - Pneumonia, unspecified organism (4) Heart failure Current visit: Yes Status: Acute Patient BNP 391 Chest x-ray concerning for pneumonia versus pulmonary edema Patient responded to Lasix at outside facility, we will consider re-dosing as indicated Troponin I at 0.24-we will reevaluate in 4 hours. Consult cardiology if not trending downward Patient EKG shows normal sinus rhythm without overt evidence of acute ischemic change Stat echocardiogram ordered Continue to monitor Qualifiers: Heart failure type: unspecified Heart failure chronicity: unspecified Qualified Code(s): I50.9 - Heart failure, unspecified (5) Diabetes mellitus Current visit: No Status: Chronic Patient glucose is currently 455 Sodium noted to be 127 is corrected by the Emma method to 136-consistent with pseudohyponatremia Patient started on 35 units at bedtime of detemir Patient is able to tolerate oral intake-initiated diabetic diet High-dose sliding scale insulin regimen 3 times a day before meals Continue to monitor POC glucose before meals and at bedtime Qualifiers: Diabetes mellitus type: type 2 Diabetes mellitus long term care administrator insulin use: with mcc use Diabetes mellitus complication status: with skin complications Diabetes mellitus complication detail: with foot ulcer Qualified Code(s): E11.621 - Type 2 diabetes mellitus with foot ulcer; L97.509 - Non-pressure chronic ulcer of other part of unspecified foot with unspecified severity; L97.509 - Non-pressure chronic ulcer of other part of unspecified foot with unspecified severity; L97.509 - Non-pressure chronic ulcer of other part of unspecified foot with unspecified severity; L97.509 - Non-pressure chronic ulcer of other part of unspecified foot with unspecified severity; Z79.4 - residential (current) use of insulin; Z79.4 - residential (current) use of insulin; Z79.4 - residential (current) use of insulin; Z79.4 - residential (current ) use of insulin (6) DVT prophylaxis Current visit: No Status: Acute 5000 units subcutaneous heparin every 8 hours History of Present Illness Chief complaint: Shortness of breath HPI: Ms. Larson is a 47 year old female presenting to [facility] from [facility] for difficulty breathing. Patient states that she has had a cold for the past 3 weeks as well as several family members who have been ill. Patient states that her difficulty breathing began last night and that when she awoke her oxygen saturation was in the 40s.. Family states that the patient was confused at this time and uncoordinated, patient states to have no memory of this event. Patient was placed on 8 L of oxygen at home which brought her saturations into the 70s or 80s. Patient states that this presentation is consistent with a prior admission for pneumonia in April 2018. Past Med Surg Social Fam HX - Past Medical History Medical history: diabetes, GERD, hypertension Additional medical history: Osteomylitis right heel Psychiatric history: depression - Past Surgical History Surgical History: hysterectomy, other Additional surgical history: back surgery, b/l foot surgeries, L5S1 disectomy, discogram-2008, amputation left foot, freat toe-2011, right heel x2 - Social History Smoking Status: Current every day smoker Smokeless Tobacco Status: No Alcohol use: none Drug use: none - Family History Sister Hx Family Endocrine Disorder: Yes (Diabetes) Grandfather Hx Family Cardiac Disorders: Yes (Coronary artery disease at age 50) Father Family Member Ethnicity: Non- Living Status: Still Living Hx Family Cardiac Disorders: Yes Hx Family Respiratory Disorders: No Hx Family Cancer: Yes Hx Family GI Disorders: No Hx Family Endocrine Disorder: Yes Hx Family Neuromuscular Disorders: No Hx Family Neurologic Disorders: No Hx Family HEENT Disorders: No Hx Family Autoimmune Disorders: No All Systems: The remainder of the systems were reviewed and are negative - Constitutional Constitutional: headache(s), no fever(s), no night sweats - EENT Eyes: no loss of vision Nose, mouth and throat: headache(s), no disequilibrium, no dizziness - Cardiovascular Cardiovascular: dyspnea, no chest pain, no edema, no lightheadedness - Respiratory Respiratory: dyspnea - Gastrointestinal Gastrointestinal: no abdominal pain, no hematochezia, no melena, no odynophagia - Genitourinary Genitourinary: no hematuria - Neurological Neurological: headache(s), no dizziness, no lack of coordination, no syncope, no other visual disturbances - Endocrine Endocrine: no excessive sweating Physical Examination Vital Signs: Vital Signs, Last 4 Hours Temp Pulse Resp BP Pulse Ox 08/10/18 14:30 99.2 F 103 18 141/88 99 General appearance: no acute distress, alert Eyes: nonicteric ENT: oropharynx moist Effort: normal Auscultation: bilateral: rhonchi Cardiovascular: regular rate and rhythm Gastrointestinal: normoactive bowel sounds Extremities: no cyanosis, no edema normal mental status, non-focal exam mood appropriate, affect normal Results - Laboratory Findings CBC and BMP: 08/10/18 16:16 08/10/18 16:16
[2018-08-10 16:44] LABS: Basophils % 0.1 %; Hemoglobin 10.5 g/dL (11.5-15.4); Immature Granulocytes % 0.8 % (0-4); Lymphocytes # 0.2 K/mcL (0.6-4.6); Lymphocytes % 0.8 %; Mean Corpuscular HGB Conc 32.8 g/dL (31.6-35.5); Mean Corpuscular Hemoglobin 29.5 pg (28.0-33.3); Mean Corpuscular Volume 89.9 fL (83.0-100.0); Mean Platelet Volume 11.1 fL (9.4-12.4); Monocytes # 0.3 K/mcL (0.0-1.3); Monocytes % 1.5 %; Platelet Count 283 K/mcL (140-400); Red Blood Count 3.56 M/mcL (3.82-4.97); Red Cell Distribution Width 16.1 % (11.5-14.5); Segmented Neutrophils % 96.8 %
[2018-08-10 16:51] LABS: Neutrophils # 21.8 K/mcL (1.6-8.9); Platelet Estimate Normal (Normal)
[2018-08-10 16:55] LABS: Albumin 3.5 g/dL (3.5-5.7); Albumin/Globulin Ratio 0.9 (1.1-2.2); Bilirubin,Total 0.3 mg/dL (0.3-1.0); Calcium 8.8 mg/dL (8.6-10.3); Globulin 3.8 g/dL (2.4-3.5); Total Protein 7.3 g/dL (6.4-8.9)
[2018-08-10 16:59] LABS: Troponin I 0.24 ng/mL (< 0.04)
[2018-08-10] MEDS ORDERED: Aspirin 325 MG TABLET PO ONE (17:01)
[2018-08-10] MEDS: Insulin LISPRO 300 UNITS/3 ML VIAL SQ SCH (17:03)
[2018-08-10] MEDS: Acetaminophen 325 MG TABLET PO PRN (19:34)
[2018-08-10 20:28] LABS: Troponin I 0.29 ng/mL (< 0.04)
[2018-08-10] MEDS: Nicotine 21 MG PATCH.TD24 TD SCH (20:35)
[2018-08-10 20:52] LABS: Bilirubin,Urine Negative (Negative); Blood,Urine Negative (Negative); Clarity,Urine Clear (Clear); Color,Urine Yellow (Yellow); Glucose,Urine (UA) 100 mg/dL (Normal); Ketones,Urine Negative (Negative); Leukocyte Esterase,Urine Negative (Negative); Nitrite,Urine Negative (Negative); PH,Urine 5.5 pH Units (5.0-8.0); Protein,Urine 30 mg/dL (Neg-Trace); Specific Gravity,Urine 1.028 (1.010-1.025); Urobilinogen,Urine Normal (Normal)
[2018-08-10 20:54] LABS: Bacteria,Urine None Seen per hpf (None-Few); RBC,Urine 0-3 per hpf (0-3); Squamous Epithelial Cell,Urine Many per lpf (None-Few)
[2018-08-10] MEDS ORDERED: Insulin DETEMIR 100 UNIT/ML X5UNITS SQ SCH (21:00)
[2018-08-10] MEDS ORDERED: *HR* Heparin 5,000 UNIT/ML VIAL IVP ONE (21:08)
[2018-08-10] MEDS ORDERED: *HR* Heparin 5,000 UNIT/ML VIAL IVP PRN ×2 (21:08)
[2018-08-10 21:13] LABS: Hyaline Casts,Urine Many per lpf (None-Few)
[2018-08-10] MEDS: Heparin 25,000 UNIT/500 ML D5W 25,000 UNIT/500 ML BAG IVC SCH (22:33)
[2018-08-11 03:22] LABS: Basophils % 0.1 %; Hematocrit 28.7 % (35.3-44.9); Hemoglobin 9.3 g/dL (11.5-15.4); Immature Granulocytes % 0.7 % (0-4); Lymphocytes # 0.6 K/mcL (0.6-4.6); Lymphocytes % 3.1 %; Mean Corpuscular HGB Conc 32.4 g/dL (31.6-35.5); Mean Corpuscular Hemoglobin 29.2 pg (28.0-33.3); Mean Platelet Volume 10.6 fL (9.4-12.4); Monocytes # 0.6 K/mcL (0.0-1.3); Monocytes % 2.9 %; Neutrophils # 18.2 K/mcL (1.6-8.9); Platelet Count 250 K/mcL (140-400); Red Blood Count 3.19 M/mcL (3.82-4.97); Red Cell Distribution Width 16.2 % (11.5-14.5); Segmented Neutrophils % 93.2 %
[2018-08-11 03:44] LABS: Calcium 8.4 mg/dL (8.6-10.3); Magnesium 2.2 mg/dL (1.6-2.6); Potassium 5.4 mEq/L (3.5-5.1)
[2018-08-11 04:43] LABS: Troponin I 0.71 ng/mL (< 0.04)
--- NOTE | 2018-08-11 06:36 | Pulmonology Progress Note ---
Date of Encounter: 08/11/18 Time of Encounter: 06:36 Assessment and Plan (1) Acute respiratory failure with hypoxia Current Visit: Yes Status: Acute I believe that it is multifactorial including pneumonia and suspected hydrostatic pulmonary edema that cardiogenic in nature She is tolerating between 6 and 7 L high flow nasal cannula and has very stable respiratory status at present Can use BiPAP as needed for work of breathing Start incentive spirometry and will encourage patient to get out of bed to chair (2) Pneumonia Current Visit: No Status: Acute She is being treated for community-acquired pneumonia with a history of MRSA infection her MRSA nasal swab was negative we will stop vancomycin continue Levaquin cultures as far negative including respiratory infection panel checked urine strep pneumo and legionella antigens Qualifiers: Pneumonia type: due to unspecified organism Laterality: bilateral Lung location: unspecified part of lung Qualified Code(s): J18.9 - Pneumonia, unspecified organism (3) Elevated brain natriuretic peptide (BNP) level Current Visit: Yes Status: Acute Suspected component of cardiogenic pulmonary edema formal echocardiogram pending previous echocardiogram without evidence of significant abnormality (4) Elevated troponin Current Visit: Yes Status: Acute Concern for non-STEMI vs demand ischemia from hypoxia complicated by kidney injury ECG today shows evidence of lateral ischemia she is new from presentation She has received beta smith aspirin and heparin for concern of ACS per protocol Denies chest pain at present We will need formal cardiology consult is using increased risk for coronary artery disease because of smoking history and diabetes along with obesity (5) Diabetes mellitus Current Visit: No Status: Chronic Blood sugar is better controlled with basal bolus insulin dosing will continue to monitor continue diabetic diet Qualifiers: Diabetes mellitus type: type 2 Diabetes mellitus intermediate teacher insulin use: with intermediate teacher use Diabetes mellitus complication status: with skin complications Diabetes mellitus complication detail: with foot ulcer Qualified Code(s): E11.621 - Type 2 diabetes mellitus with foot ulcer; L97.509 - Non-pressure chronic ulcer of other part of unspecified foot with unspecified severity; L97.509 - Non-pressure chronic ulcer of other part of unspecified foot with unspecified severity; L97.509 - Non-pressure chronic ulcer of other part of unspecified foot with unspecified severity; L97.509 - Non-pressure chronic ulcer of other part of unspecified foot with unspecified severity; Z79.4 - custodial (current) use of insulin; Z79.4 - custodial (current) use of insulin; Z79.4 - custodial (current) use of insulin; Z79.4 - intermediate teacher (current ) use of insulin (6) Tobacco abuse Current Visit: No Status: Chronic Tobacco cessation counseling given (7) Acute kidney injury Current Visit: No Status: Resolved Pulmonary standpoint that she would benefit from continued diuresis however intravascular she may be a bit dry and this may have precipitated worsening kidney injury we will give small challenge of volume expansion with the Colyte today and repeat her labs the early part of the afternoon. She is making acceptable amount of urine. Her urine sodium is below 25 which is consistent with a prerenal etiology but heart failure is also not withstanding (8) Hyperkalemia Current Visit: No Status: Resolved This is mild and likely related to hyperglycemia as well as acute kidney injury I suspect this would improve with volume expansion we will follow this carefully with may need to treat medically with Kayexalate and insulin [facility] Subjective Principal diagnosis: Respiratory Failure Interval history: Ms. Te Hendricks has done well overnight. Respiratory status appears to be improving and where being able to wean down on her high flow nasal cannula. Unfortunately troponin was noted to be elevated yesterday and continued to increase she was placed on heparin infusion for concern of ACS echocardiogram was performed but official interpretation was not available and she does denies complaints today and says she is feeling better Objective PUL Vital signs: Last Vital Signs Temp 98.3 F 08/11/18 03:13 Pulse 77 08/11/18 05:00 Resp 18 08/11/18 05:00 BP 115/73 08/11/18 05:00 Pulse Ox 91 08/11/18 05:00 General appearance: no acute distress Eyes: nonicteric ENT: oropharynx moist Neck: supple Effort: normal Auscultation: bilateral: rales Cardiovascular: regular rate and rhythm Gastrointestinal: normoactive bowel sounds, soft, non-tender Integumentary: normal Extremities: no cyanosis, pink and warm, pulses normal, edema (Trace lower extremity edema) Musculoskeletal: other (Her right foot is in a pressure boot status post grafting for ulcer there is no lower extremity erythema is present) normal mental status, non-focal exam mood appropriate Results - Laboratory Findings CBC and BMP: 08/11/18 03:00 08/11/18 03:00 Abnormal lab findings: Abnormal lab results WBC 19.5 K/mcL (4.3-11.1) H 08/11/18 03:00 RBC 3.19 M/mcL (3.82-4.97) L 08/11/18 03:00 Hgb 9.3 g/dL (11.5-15.4) L 08/11/18 03:00 Hct 28.7 % (35.3-44.9) L 08/11/18 03:00 RDW 16.2 % (11.5-14.5) H 08/11/18 03:00 Neutrophils # 18.2 K/mcL (1.6-8.9) H 08/11/18 03:00 Sodium 126 mEq/L (136-145) L 08/11/18 03:00 Potassium 5.4 mEq/L (3.5-5.1) H 08/11/18 03:00 Chloride 97 mEq/L (98-107) L 08/11/18 03:00 BUN 70 mg/dL (6-20) H 08/11/18 03:00 Creatinine 2.22 mg/dL (0.60-1.20) H 08/11/18 03:00 Est GFR ( Amer) 29 (> 60) L 08/11/18 03:00 Est GFR (Non-Af Amer) 24 (> 60) L 08/11/18 03:00 BUN/Creatinine Ratio 32 (6-26) H 08/11/18 03:00 Glucose 127 mg/dL (70-105) H 08/11/18 03:00 POC Glucose 419 mg/dL (70-99) H* 08/10/18 19:16 Serum Osmolality 306 mOsm/kg (280-300) H 08/10/18 19:34 Calcium 8.4 mg/dL (8.6-10.3) L 08/11/18 03:00 Troponin I 0.71 ng/mL (< 0.04) H* 08/11/18 03:00 B-Natriuretic Peptide 391 pg/mL (Less than 100) H 08/10/18 16:15 Globulin 3.8 g/dL (2.4-3.5) H 08/10/18 16:16 Albumin/Globulin Ratio 0.9 (1.1-2.2) L 08/10/18 16:16 Ur Specific [place] 1.028 (1.010-1.025) H 08/10/18 20:30 Urine Protein 30 mg/dL (Neg-Trace) H 08/10/18 20:30 Urine Glucose (UA) 100 mg/dL (Normal) H 08/10/18 20:30 Urine Microscopic WBC 3-5 per hpf (0-3) H 08/10/18 20:30 Ur Squamous Epith Cells Many per lpf (None-Few) H 08/10/18 20:30 Hyaline Casts Many per lpf (None-Few) H 08/10/18 20:30 - Diagnostic Findings Chest x-ray: report reviewed, image reviewed - Clinical Findings Intake & Output: Intake & Output 08/10/18 08/10/18 08/11/18 15:59 23:59 07:59 Intake Total 240 / 240 Output Total 475 / 475 75 / 75 Balance -235 / -235 -75 / -75 Weight 83.2 kg 83.2 kg Consult Discharge Plan - Plan Referrals: Alejandro Le DO [Primary Care Provider] -
[2018-08-11] MEDS: Insulin LISPRO 300 UNITS/3 ML VIAL SQ SCH ×3 (07:38→15:50)
[2018-08-11] MEDS: Aspirin 81 MG TAB.CHEW PO SCH (08:18)
[2018-08-11] MEDS: Nicotine 21 MG PATCH.TD24 TD SCH (08:19)
[2018-08-11] MEDS ORDERED: Aminoglycoside Consult 1 EACH MC ONE (08:39)
[2018-08-11 08:54] LABS: ABG Base Excess -1 mEq/L (-2 to 3); ABG HCO3 24 mEq/L (21-27); ABG Oxygen Saturation 88 % (95-98); ABG PCO2 41 mmHg (35-45); ABG PH 7.38 pH Units (7.32-7.45); ABG PO2 56 mmHg (85-104); ABG TCO2 26 mEq/L (20-26); Blood Gas PEEP 6 cm H2O; Blood Gas VT 12 cc
[2018-08-11] MEDS ORDERED: Levofloxacin 750 MG/150 ML 750 MG/150 ML BAG IVPB SCH (09:00)
--- NOTE | 2018-08-11 10:36 | Event Note ---
Date of Encounter: 08/11/18 Time of Encounter: 10:35 Patient noted to desaturate when getting out of the bed into the chair requiring BiPAP to increase oxygenation. Because of this development would cont to monitor in the ICU
[2018-08-11 11:27] LABS: Basophils % 0.1 %; Hematocrit 30.4 % (35.3-44.9); Hemoglobin 9.9 g/dL (11.5-15.4); Immature Granulocytes % 0.4 % (0-4); Lymphocytes # 0.8 K/mcL (0.6-4.6); Lymphocytes % 3.9 %; Mean Corpuscular HGB Conc 32.6 g/dL (31.6-35.5); Mean Corpuscular Hemoglobin 28.9 pg (28.0-33.3); Mean Corpuscular Volume 88.6 fL (83.0-100.0); Mean Platelet Volume 10.4 fL (9.4-12.4); Monocytes # 0.7 K/mcL (0.0-1.3); Monocytes % 3.5 %; Neutrophils # 18.2 K/mcL (1.6-8.9); Platelet Count 271 K/mcL (140-400); Red Blood Count 3.43 M/mcL (3.82-4.97); Red Cell Distribution Width 16.3 % (11.5-14.5); Segmented Neutrophils % 92.1 %
[2018-08-11 11:49] LABS: Calcium 8.6 mg/dL (8.6-10.3); Potassium 4.9 mEq/L (3.5-5.1)
--- NOTE | 2018-08-11 14:41 | Cardiology Consult Note ---
Date of Encounter: 08/11/18 Time of Encounter: 14:38 Assessment and Plan (1) Elevated troponin Current Visit: Yes Status: Acute Mildly elevated troponin in the setting of multiple medical issues, including respiratory insufficiency requiring supplemental oxygen and acute kidney injury. Presentation is not consistent with ACS. LV function is preserved. Normal RV function noted as well. Invasive cardiac evaluation is not warranted at this time. Agree with supportive care in the ICU. Your pulmonary management. Abnormal CT chest in April 2018 - symmetric bilateral diffuse pulmonary interstitial process. Differential includes atypical viral pneumonia, arts, noncardiogenic pulmonary edema, interstitial pneumonitis. Consider repeat CT chest, but defer this to ICU. Recommend hold diuretics for now given increased Cr with diuretics. Discussion w patient/family: The assessment and plan as outlined above was discussed with the patient and/or family members who expressed understanding and agreement. All questions were answered. Thank you for involving us in the care of your patient. Please call with any questions. History of Present Illness Consult date: 08/11/18 Requesting physician: Chip Matt Consult reason: Elevated troponin Chief complaint: Respiratory insufficiency History of present illness: Ms. Larson is a 47 year old female admitted to the ICU with respiratory insufficiency. Per reports, and imaging evidence of multifocal infiltrates. Supplemental oxygen requirements noted. Acute kidney injury noted, creatinine 2.22. Mild BNP, abnormal chest x-ray patient given IV diuresis for suspicion of pulmonary edema, creatinine worsened. Mild troponin of 0.29 and 0.71. TTE reviewed, LV function is normal. No segmental wall motion abnormalities. Past Med Surg Social Fam HX - Past Medical History Medical history: diabetes, GERD, hypertension Additional medical history: Osteomylitis right heel Psychiatric history: depression - Past Surgical History Surgical History: hysterectomy, other Additional surgical history: back surgery, b/l foot surgeries, L5S1 disectomy, discogram-2008, amputation left foot, freat toe-2011, right heel x2 - Social History Smoking Status: Current every day smoker Packs per day: 2 Smokeless Tobacco Status: No Alcohol use: none Drug use: none - Family History Sister Hx Family Endocrine Disorder: Yes (Diabetes) Grandfather Hx Family Cardiac Disorders: Yes (Coronary artery disease at age 50) Father Family Member Ethnicity: Non- Living Status: Still Living Hx Family Cardiac Disorders: Yes Hx Family Respiratory Disorders: No Hx Family Cancer: Yes Hx Family GI Disorders: No Hx Family Endocrine Disorder: Yes Hx Family Neuromuscular Disorders: No Hx Family Neurologic Disorders: No Hx Family HEENT Disorders: No Hx Family Autoimmune Disorders: No Medications and Allergies Insulin Glargine,Hum.rec.anlog [Lantus Solostar] 32 units SQ HS 06/11/15 [ History] Aspirin [Lo-Dose Aspirin EC] 81 mg PO DAILY 10/10/17 [History] Lisinopril-HCTZ 20-12.5 [Prinzide 20-12.5] 2 tab PO DAILY 10/10/17 [History] Omeprazole [PriLOSEC] 20 mg PO DAILY 10/10/17 [History] Gabapentin [Neurontin] 800 mg PO TID 11/23/17 [History] Liraglutide [Victoza 2-Yunier] 1.2 mg SQ DAILY 01/09/18 [History] FLUoxetine HCl [Prozac] 40 mg PO QAM 02/15/18 [History] Metformin HCl [Metformin HCl ER] 500 mg PO BID 06/28/18 [History] Quetiapine Fumarate [SEROquel] 100 mg PO HS 06/28/18 [History] Cholecalciferol (Vitamin D3) [Vitamin D3] 10,000 unit PO WE 08/10/18 [History] Insulin ASPART [NovoLOG] 0 - 12 unit SQ TIDWM 08/10/18 [History] Metoprolol [Lopressor] 25 mg PO BID 08/10/18 [History] 3 Allergy/AdvReac Type Severity Reaction Status Date / Time Penicillins Allergy Swelling Verified 06/20/18 10:51 of Lip/Tongue/Throat All Systems Review: The remainder of the systems were reviewed and are negative - Cardiovascular Cardiovascular: as per HPI - Respiratory Respiratory: dyspnea Physical Examination Vital Signs, Last 4 Hours Temp Pulse Resp BP Pulse Ox 08/11/18 14:00 92 25 155/94 93 08/11/18 13:00 86 20 146/98 95 08/11/18 12:00 88 23 150/110 90 08/11/18 11:10 88 08/11/18 11:00 98.1 F 82 13 141/92 90 General: Other (Somewhat chronically ill-appearing.) HEENT: Atraumatic, Normocephaly, Mucus Membranes Moist Neck: No JVD, Normal carotid pulses Cardiac: Other (Distant, regular. No obvious murmurs.) Lungs: Other (Shallow bilaterally) Neuro: Other (Alert, but somewhat lethargic) Skin: No rashes noted on visualized skin Musculoskeletal: No Chest Wall Tenderness Extremities: No Clubbing, No Cyanosis, No Edema Results 08/11/18 11:20 08/11/18 11:20 Lab Results 08/10/18 08/10/18 08/10/18 16:15 16:16 16:16 WBC 22.5 H Hgb 10.5 L Hct 32.0 L Plt Count 283 Sodium 127 L Potassium 5.0 Chloride 96 L Carbon Dioxide 22 L BUN 61 H Creatinine 1.83 H Glucose 455 H Calcium 8.8 Magnesium Total Bilirubin 0.3 AST 37 ALT 11 Alkaline Phosphatase 83 Troponin I 0.24 H* B-Natriuretic Peptide 391 H 08/10/18 08/11/18 08/11/18 19:34 03:00 03:00 WBC 19.5 H Hgb 9.3 L Hct 28.7 L Plt Count 250 Sodium 126 L Potassium 5.4 H Chloride 97 L Carbon Dioxide 23 BUN 70 H Creatinine 2.22 H Glucose 127 H Calcium 8.4 L Magnesium 2.2 Total Bilirubin AST ALT Alkaline Phosphatase Troponin I 0.29 H* 0.71 H* B-Natriuretic Peptide 08/11/18 08/11/18 11:20 11:20 WBC 19.7 H Hgb 9.9 L Hct 30.4 L Plt Count 271 Sodium 129 L Potassium 4.9 Chloride 98 Carbon Dioxide 25 BUN 72 H Creatinine 2.08 H Glucose 153 H Calcium 8.6 Magnesium Total Bilirubin AST ALT Alkaline Phosphatase Troponin I B-Natriuretic Peptide - Imaging and Cardiology Echo: report reviewed - EKG Interpretation EKG results cardiology: personally reviewed Consult Discharge Plan - Plan Referrals: Alejandro Le DO [Primary Care Provider] -
[2018-08-11] MEDS ORDERED: Insulin DETEMIR 100 UNIT/ML X5UNITS SQ SCH (18:12)
[2018-08-11] MEDS: Acetaminophen 325 MG TABLET PO PRN (20:11)
[2018-08-11] MEDS: *HR* Dextrose 50 % in Water (Syg) 50 ML SYRINGE IVP PRN ×2 (20:18→23:53)
[2018-08-11] MEDS: Heparin 25,000 UNIT/500 ML D5W 25,000 UNIT/500 ML BAG IVC SCH (20:20)
[2018-08-12 04:07] LABS: Basophils % 0.1 %; Eosinophils # 0.3 K/mcL (0.0-0.6); Eosinophils % 2.3 %; Hemoglobin 9.2 g/dL (11.5-15.4); Immature Granulocytes % 0.6 % (0-4); Lymphocytes # 0.7 K/mcL (0.6-4.6); Lymphocytes % 5.2 %; Mean Corpuscular HGB Conc 32.9 g/dL (31.6-35.5); Mean Corpuscular Volume 88.3 fL (83.0-100.0); Mean Platelet Volume 10.2 fL (9.4-12.4); Monocytes # 0.4 K/mcL (0.0-1.3); Monocytes % 2.8 %; Neutrophils # 11.9 K/mcL (1.6-8.9); Platelet Count 274 K/mcL (140-400); Red Blood Count 3.17 M/mcL (3.82-4.97); Red Cell Distribution Width 16.3 % (11.5-14.5)
[2018-08-12 04:24] LABS: Calcium 8.8 mg/dL (8.6-10.3); Magnesium 2.1 mg/dL (1.6-2.6); Potassium 4.5 mEq/L (3.5-5.1)
[2018-08-12] MEDS ORDERED: Furosemide 20 MG/2 ML VIAL IVP ONE ×2 (06:04→14:24)
[2018-08-12] MEDS: Nicotine 21 MG PATCH.TD24 TD SCH (07:53)
[2018-08-12] MEDS: Aspirin 81 MG TAB.CHEW PO SCH (07:53)
--- NOTE | 2018-08-12 07:54 | Pulmonology Progress Note ---
Date of Encounter: 08/12/18 Time of Encounter: 07:54 Assessment and Plan (1) Acute respiratory failure with hypoxia Current Visit: Yes Status: Acute I believe that it is multifactorial including pneumonia and suspected hydrostatic pulmonary edema that has at least cardiogenic component Continue BiPAP for work of breathing she is currently on 60% FiO2 and were being able to wean down as tolerated to keep saturation around 92% Can consider high flow nasal cannula as tolerated (2) Pneumonia Current Visit: No Status: Acute She is being treated for community-acquired pneumonia with a history of MRSA infection her MRSA nasal swab was negative we will stop vancomycin continue Levaquin cultures as far negative including respiratory infection panel urine strep pneumo and legionella antigens. Encouragingly today white count is trending down she remains afebrile Qualifiers: Pneumonia type: due to unspecified organism Laterality: bilateral Lung location: unspecified part of lung Qualified Code(s): J18.9 - Pneumonia, unspecified organism (3) Elevated brain natriuretic peptide (BNP) level Current Visit: Yes Status: Acute Likely component of cardiogenic and noncardiogenic pulmonary edema she also has an echocardiogram that has been performed which is grossly normal Appreciate cardiology recommendations We will reinstitute diuresis today as his been improvement in her renal function (4) Elevated troponin Current Visit: Yes Status: Acute Echo shows normal LV cardiology feels this is not consistent with acute coronary syndrome and likely related to kidney dysfunction and dad demand ischemia stopping IV heparin per their recommendations (5) Diabetes mellitus Current Visit: No Status: Chronic She had episodic hypoglycemia overnight we will hold her basal insulin and continue Accu-Cheks every 4 hours while nothing by mouth 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 helper insulin use: with termite treater helper use Diabetes mellitus complication status: with skin complications Diabetes mellitus complication detail: with foot ulcer Qualified Code(s): E11.621 - Type 2 diabetes mellitus with foot ulcer; L97.509 - Non-pressure chronic ulcer of other part of unspecified foot with unspecified severity; L97.509 - Non-pressure chronic ulcer of other part of unspecified foot with unspecified severity; L97.509 - Non-pressure chronic ulcer of other part of unspecified foot with unspecified severity; L97.509 - Non-pressure chronic ulcer of other part of unspecified foot with unspecified severity; Z79.4 - correction (current) use of insulin; Z79.4 - correction (current) use of insulin; Z79.4 - termite control servicer (current) use of insulin; Z79.4 - termite control servicer (current ) use of insulin (6) Acute kidney injury Current Visit: No Status: Resolved Pulmonary standpoint that she would benefit from continued diuresis however intravascular she may be a bit dry and this may have precipitated worsening a candidate which has improved over the last 24 hours. We will give trial of Lasix diuresis today and recheck her renal panel urine output remains acceptable. Continue to monitor urine output and electrolytes along with serum creatinine - at least twice daily (7) Hyperkalemia Current Visit: No Status: Resolved This has resolved (8) Tobacco abuse Current Visit: No Status: Chronic Tobacco cessation counseling given Subjective Principal diagnosis: Respiratory Failure Interval history: Ms. Te Hendricks has done well overnight. She remained on BiPAP for the course of the evening but states that her breathing is less labored today. Has remained afebrile otherwise hemodynamically stable. Objective PUL Vital signs: Last Vital Signs Temp 98.8 F 08/12/18 04:59 Pulse 98 08/12/18 07:00 Resp 20 08/12/18 07:00 BP 110/64 08/12/18 07:00 Pulse Ox 95 08/12/18 07:00 General appearance: no acute distress Eyes: nonicteric Neck: supple, no lymphadenopathy Effort: mildly labored Auscultation: bilateral: rales Cardiovascular: regular rate and rhythm Gastrointestinal: normoactive bowel sounds, soft, non-tender Integumentary: normal Extremities: no cyanosis, no edema, no clubbing Musculoskeletal: other (Right leg remains in a pressure boot) normal mental status, non-focal exam, pupils equal and round mood appropriate Results - Laboratory Findings CBC and BMP: 08/12/18 03:40 08/12/18 03:40 ABG ABG pH 7.38 pH Units (7.32-7.45) 08/11/18 08:46 ABG pCO2 41 mmHg (35-45) 08/11/18 08:46 ABG pO2 56 mmHg (85-104) L 08/11/18 08:46 ABG O2 Saturation 88 % (95-98) L 08/11/18 08:46 Abnormal lab findings: Abnormal lab results WBC 13.3 K/mcL (4.3-11.1) H 08/12/18 03:40 RBC 3.17 M/mcL (3.82-4.97) L 08/12/18 03:40 Hgb 9.2 g/dL (11.5-15.4) L 08/12/18 03:40 Hct 28.0 % (35.3-44.9) L 08/12/18 03:40 RDW 16.3 % (11.5-14.5) H 08/12/18 03:40 Neutrophils # 11.9 K/mcL (1.6-8.9) H 08/12/18 03:40 ABG pO2 56 mmHg (85-104) L 08/11/18 08:46 ABG O2 Saturation 88 % (95-98) L 08/11/18 08:46 Sodium 132 mEq/L (136-145) L 08/12/18 03:40 BUN 62 mg/dL (6-20) H 08/12/18 03:40 Creatinine 1.69 mg/dL (0.60-1.20) H 08/12/18 03:40 Est GFR ( Amer) 39 (> 60) L 08/12/18 03:40 Est GFR (Non-Af Amer) 32 (> 60) L 08/12/18 03:40 BUN/Creatinine Ratio 37 (6-26) H 08/12/18 03:40 Glucose 106 mg/dL (70-105) H 08/12/18 03:40 POC Glucose 55 mg/dL (70-99) L 08/11/18 23:47 Serum Osmolality 306 mOsm/kg (280-300) H 08/10/18 19:34 Troponin I 0.61 ng/mL (< 0.04) H* 08/11/18 15:35 B-Natriuretic Peptide 391 pg/mL (Less than 100) H 08/10/18 16:15 Globulin 3.8 g/dL (2.4-3.5) H 08/10/18 16:16 Albumin/Globulin Ratio 0.9 (1.1-2.2) L 08/10/18 16:16 Ur Specific Matthews 1.028 (1.010-1.025) H 08/10/18 20:30 Urine Protein 30 mg/dL (Neg-Trace) H 08/10/18 20:30 Urine Glucose (UA) 100 mg/dL (Normal) H 08/10/18 20:30 Urine Microscopic WBC 3-5 per hpf (0-3) H 08/10/18 20:30 Ur Squamous Epith Cells Many per lpf (None-Few) H 08/10/18 20:30 Hyaline Casts Many per lpf (None-Few) H 08/10/18 20:30 - Microbiology Findings Microbiology Findings: Microbiology, Last 48 Hours 08/10/18 20:31 Legionella Antigen - Final Urine,Catheterized Streptococcus pneumoniae Antigen (M - Final - Diagnostic Findings Additional studies: Echocardiogram - Clinical Findings Intake & Output: Intake & Output 08/11/18 08/11/18 08/12/18 15:59 23:59 07:59 Intake Total 250 / 250 500 / 500 Output Total 1700 / 1700 925 / 925 375 / 375 Balance -1450 / -1450 -425 / -425 -375 / -375 Consult Discharge Plan - Plan Referrals: Alejandro Le DO [Primary Care Provider] -
[2018-08-12] MEDS: Acetaminophen 325 MG TABLET PO PRN (07:56)
[2018-08-12] MEDS: Insulin LISPRO 300 UNITS/3 ML VIAL SQ SCH ×3 (08:04→16:50)
[2018-08-12 12:47] LABS: Albumin 3.1 g/dL (3.5-5.7); Calcium 8.6 mg/dL (8.6-10.3); Phosphorous 3.5 mg/dL (2.7-4.5); Potassium 4.4 mEq/L (3.5-5.1)
--- NOTE | 2018-08-12 14:24 | Cardiology Progress Note ---
Date of Encounter: 08/12/18 Time of Encounter: 14:22 Assessment and Plan (1) Elevated troponin Current Visit: Yes Status: Acute Mildly elevated troponin in the setting of multiple medical issues, including respiratory insufficiency requiring supplemental oxygen and acute kidney injury. Presentation is not consistent with ACS. LV function is preserved. Normal RV function noted as well. Invasive cardiac evaluation is not warranted at this time. Agree with supportive care in the ICU. Multifactorial respiratory insufficiency related pneumonia, pulmonary edema. Your management regarding pneumonia. Agree with cautious diuresis as tolerated. Monitor creatinine, urine output. No further inpatient cardiac testing appears to be necessary at this time. Cardiology will sign off. Please call with any questions or concerns. Discussion w patient/family: The assessment and plan as outlined above was discussed with the patient and/or family members who expressed understanding and agreement. All questions were answered. Thank you for involving us in the care of your patient. Please call with any questions. Subjective Principal diagnosis: Respiratory Failure Interval history: Patient seen and examined earlier this morning. Remains on 60% FiO2. Chest x-ray suggests worsening pulmonary edema. Creatinine did improve overnight. Low sodium noted. Objective Vital Signs, Last 4 Hours Temp Pulse Resp BP Pulse Ox 08/12/18 12:22 98.0 F 08/12/18 12:00 95 18 127/75 91 08/12/18 11:00 87 24 118/72 89 General: Conversant, Other (No acute distress. ) HEENT: Atraumatic, Normocephaly, Mucus Membranes Moist Neck: No JVD, Normal carotid pulses Cardiac: Reg Rate and Rhythm, Normal S1 and S2, No Murmur Lungs: Other (Shallow. Rales.) Neuro: Alert and responsive, No focal deficits noted Abdomen: Soft, Non-Tender Skin: No rashes noted on visualized skin Musculoskeletal: No Chest Wall Tenderness Extremities: No Clubbing, No Cyanosis, No Edema Results 08/12/18 03:40 08/12/18 12:00 Lab Results 08/11/18 08/12/18 08/12/18 15:35 03:40 03:40 WBC 13.3 H Hgb 9.2 L Hct 28.0 L Plt Count 274 Sodium 132 L Potassium 4.5 Chloride 102 Carbon Dioxide 26 BUN 62 H Creatinine 1.69 H Glucose 106 H Calcium 8.8 Magnesium 2.1 Troponin I 0.61 H* 08/12/18 12:00 WBC Hgb Hct Plt Count Sodium 134 L Potassium 4.4 Chloride 102 Carbon Dioxide 26 BUN 61 H Creatinine 1.61 H Glucose 117 H Calcium 8.6 Magnesium Troponin I - Imaging and Cardiology Echo: report reviewed Consult Discharge Plan - Plan Referrals: Alejandro Le DO [Primary Care Provider] -
[2018-08-12] MEDS: *HR* Heparin 5,000 UNIT/ML VIAL SQ SCH (22:27)
[2018-08-13 03:52] LABS: Basophils % 0.3 %; Eosinophils # 0.5 K/mcL (0.0-0.6); Eosinophils % 6.2 %; Hematocrit 26.5 % (35.3-44.9); Hemoglobin 8.7 g/dL (11.5-15.4); Immature Granulocytes % 0.3 % (0-4); Lymphocytes % 13.5 %; Mean Corpuscular HGB Conc 32.8 g/dL (31.6-35.5); Mean Corpuscular Hemoglobin 29.3 pg (28.0-33.3); Mean Corpuscular Volume 89.2 fL (83.0-100.0); Mean Platelet Volume 10.2 fL (9.4-12.4); Monocytes # 0.2 K/mcL (0.0-1.3); Monocytes % 2.6 %; Neutrophils # 5.7 K/mcL (1.6-8.9); Platelet Count 257 K/mcL (140-400); Red Blood Count 2.97 M/mcL (3.82-4.97); Red Cell Distribution Width 16.4 % (11.5-14.5); Segmented Neutrophils % 77.1 %
[2018-08-13 04:10] LABS: Calcium 8.8 mg/dL (8.6-10.3); Potassium 4.3 mEq/L (3.5-5.1)
[2018-08-13] MEDS: *HR* Heparin 5,000 UNIT/ML VIAL SQ SCH ×3 (05:23→21:31)
[2018-08-13] MEDS: Aspirin 81 MG TAB.CHEW PO SCH (08:22)
[2018-08-13] MEDS: Nicotine 21 MG PATCH.TD24 TD SCH (08:22)
[2018-08-13] MEDS: Insulin LISPRO 300 UNITS/3 ML VIAL SQ SCH ×4 (08:23→21:35)
[2018-08-13] MEDS ORDERED: Levofloxacin 750 MG/150 ML 750 MG/150 ML BAG IVPB SCH (09:00)
--- NOTE | 2018-08-13 10:15 | Pulmonology Progress Note ---
<Maximo Malik S - Last Filed: 08/13/18 13:02> Date of Encounter: 08/13/18 Time of Encounter: 07:30 Assessment and Plan (1) Acute respiratory failure with hypoxia Current Visit: Yes Status: Acute Likely multifactorial including pneumonia and hydrostatic pulmonary edema Patient was taken off BIPAP this morning and is currently saturating around 94% on 12 liters high flow oxygen (2) Pneumonia Current Visit: No Status: Acute Community acquired pneumonia WBC 13.3 > 7.4 today Continue treatment with levaquin Vancomycin stopped due to negative MRSA swabs x2 Negative legionella, strep pneumoniae, and respiratory infection panel Qualifiers: Pneumonia type: due to unspecified organism Laterality: bilateral Lung location: unspecified part of lung Qualified Code(s): J18.9 - Pneumonia, unspecified organism (3) Acute kidney injury Current Visit: No Status: Resolved Cr resolving 1.61 > 1.44 today Will give another dose of IV lasix 20 mg Urine output is good at 2900 ml yesterday and 925 ml so far today Continue to monitor renal function (4) Elevated brain natriuretic peptide (BNP) level Current Visit: Yes Status: Acute Patient has pulmonary edema evident on CXR Gave 40 IV lasix yesterday Ordered give 20 IV lasix today (5) Elevated troponin Current Visit: Yes Status: Acute Patient's troponin was elevated to Cardiology consulted Echo shows normal LV Cardiology does not think this is an ACS picture, likely related to demand ischemia Stopped IV heparin Patient does not have chest pain (6) Diabetes mellitus Current Visit: No Status: Chronic Patient's glucose is 206 today on BMP POC glucose checks with meals May start levemir 10 mg Qualifiers: Diabetes mellitus type: type 2 Diabetes mellitus long-term insulin use: with 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 Diabetes mellitus complication status: with skin complications Diabetes mellitus complication detail: with foot ulcer Qualified Code(s): E11.621 - Type 2 diabetes mellitus with foot ulcer; L97.509 - Non-pressure chronic ulcer of other part of unspecified foot with unspecified severity; L97.509 - Non-pressure chronic ulcer of other part of unspecified foot with unspecified severity; L97.509 - Non-pressure chronic ulcer of other part of unspecified foot with unspecified severity; L97.509 - Non-pressure chronic ulcer of other part of unspecified foot with unspecified severity; Z79.4 - [facility] (current) use of insulin; Z79.4 - [facility] (current) use of insulin; Z79.4 - [facility] (current) use of insulin; 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 She is resting well on 12 liters high flow oxygen. She has no complaints this morning and no acute events overnight. Patient denies CP, SOB, abdominal pain. Patient has a medical walking boot for which she says is for a diabetic foot ulcer. Objective PUL Vital signs: Last Vital Signs Temp 98.4 F 08/13/18 07:10 Pulse 82 08/13/18 10:00 Resp 16 08/13/18 10:00 BP 114/57 08/13/18 10:00 Pulse Ox 93 08/13/18 10:00 General appearance: no acute distress, asleep Effort: normal Auscultation: bilateral: rales Cardiovascular: regular rate and rhythm Gastrointestinal: normoactive bowel sounds, soft, non-tender Integumentary: normal Extremities: no cyanosis, pink and warm, pulses normal, other (walking boot on right foot for diabetic ulcer) normal mental status mood appropriate, affect normal Results - Laboratory Findings CBC and BMP: 08/13/18 03:30 08/13/18 03:30 ABG ABG pH 7.38 pH Units (7.32-7.45) 08/11/18 08:46 ABG pCO2 41 mmHg (35-45) 08/11/18 08:46 ABG pO2 56 mmHg (85-104) L 08/11/18 08:46 ABG O2 Saturation 88 % (95-98) L 08/11/18 08:46 Abnormal lab findings: Abnormal lab results RBC 2.97 M/mcL (3.82-4.97) L 08/13/18 03:30 Hgb 8.7 g/dL (11.5-15.4) L 08/13/18 03:30 Hct 26.5 % (35.3-44.9) L 08/13/18 03:30 RDW 16.4 % (11.5-14.5) H 08/13/18 03:30 Heparin Anti-Xa, Unfract 0.23 IU/mL (0.30-0.70) L 08/12/18 09:03 ABG pO2 56 mmHg (85-104) L 08/11/18 08:46 ABG O2 Saturation 88 % (95-98) L 08/11/18 08:46 Sodium 135 mEq/L (136-145) L 08/13/18 03:30 BUN 54 mg/dL (6-20) H 08/13/18 03:30 Creatinine 1.44 mg/dL (0.60-1.20) H 08/13/18 03:30 Est GFR ( Amer) 47 (> 60) L 08/13/18 03:30 Est GFR (Non-Af Amer) 39 (> 60) L 08/13/18 03:30 BUN/Creatinine Ratio 38 (6-26) H 08/13/18 03:30 Glucose 206 mg/dL (70-105) H 08/13/18 03:30 POC Glucose 105 mg/dL (70-99) H 08/12/18 19:46 Serum Osmolality 306 mOsm/kg (280-300) H 08/10/18 19:34 Calculated Osmolality 301 (280-300) H 08/13/18 03:30 Troponin I 0.61 ng/mL (< 0.04) H* 08/11/18 15:35 B-Natriuretic Peptide 391 pg/mL (Less than 100) H 08/10/18 16:15 Albumin 3.1 g/dL (3.5-5.7) L 08/12/18 12:00 Globulin 3.8 g/dL (2.4-3.5) H 08/10/18 16:16 Albumin/Globulin Ratio 0.9 (1.1-2.2) L 08/10/18 16:16 Ur Specific [place] 1.028 (1.010-1.025) H 08/10/18 20:30 Urine Protein 30 mg/dL (Neg-Trace) H 08/10/18 20:30 Urine Glucose (UA) 100 mg/dL (Normal) H 08/10/18 20:30 Urine Microscopic WBC 3-5 per hpf (0-3) H 08/10/18 20:30 Ur Squamous Epith Cells Many per lpf (None-Few) H 08/10/18 20:30 Hyaline Casts Many per lpf (None-Few) H 08/10/18 20:30 - Microbiology Findings Microbiology Findings: Microbiology, Last 48 Hours 08/10/18 20:31 Legionella Antigen - Final Urine,Catheterized Streptococcus pneumoniae Antigen (M - Final - Clinical Findings Intake & Output: Intake & Output 08/12/18 08/13/18 08/13/18 23:59 07:59 15:59 Intake Total 120 / 120 620 / 620 Output Total 1925 / 1925 525 / 525 Balance -1805 / -1805 -525 / -525 620 / 620 Weight 81.2 kg Consult Discharge Plan - Plan Referrals: Alejandro Le DO [Primary Care Provider] - <Mil Trejo M - Last Filed: 08/13/18 15:00> Date of Encounter: 08/13/18 Objective PUL Vital signs: Last Vital Signs Temp 98.8 F 08/13/18 12:00 Pulse 86 08/13/18 14:00 Resp 15 08/13/18 14:00 BP 126/68 08/13/18 14:00 Pulse Ox 93 08/13/18 14:00 Results - Laboratory Findings CBC and BMP: 08/13/18 03:30 08/13/18 03:30 ABG ABG pH 7.38 pH Units (7.32-7.45) 08/11/18 08:46 ABG pCO2 41 mmHg (35-45) 08/11/18 08:46 ABG pO2 56 mmHg (85-104) L 08/11/18 08:46 ABG O2 Saturation 88 % (95-98) L 08/11/18 08:46 Abnormal lab findings: Abnormal lab results RBC 2.97 M/mcL (3.82-4.97) L 08/13/18 03:30 Hgb 8.7 g/dL (11.5-15.4) L 08/13/18 03:30 Hct 26.5 % (35.3-44.9) L 08/13/18 03:30 RDW 16.4 % (11.5-14.5) H 08/13/18 03:30 Heparin Anti-Xa, Unfract 0.23 IU/mL (0.30-0.70) L 08/12/18 09:03 ABG pO2 56 mmHg (85-104) L 08/11/18 08:46 ABG O2 Saturation 88 % (95-98) L 08/11/18 08:46 Sodium 135 mEq/L (136-145) L 08/13/18 03:30 BUN 54 mg/dL (6-20) H 08/13/18 03:30 Creatinine 1.44 mg/dL (0.60-1.20) H 08/13/18 03:30 Est GFR ( Amer) 47 (> 60) L 08/13/18 03:30 Est GFR (Non-Af Amer) 39 (> 60) L 08/13/18 03:30 BUN/Creatinine Ratio 38 (6-26) H 08/13/18 03:30 Glucose 206 mg/dL (70-105) H 08/13/18 03:30 POC Glucose 105 mg/dL (70-99) H 08/12/18 19:46 Serum Osmolality 306 mOsm/kg (280-300) H 08/10/18 19:34 Calculated Osmolality 301 (280-300) H 08/13/18 03:30 Troponin I 0.61 ng/mL (< 0.04) H* 08/11/18 15:35 B-Natriuretic Peptide 391 pg/mL (Less than 100) H 08/10/18 16:15 Albumin 3.1 g/dL (3.5-5.7) L 08/12/18 12:00 Globulin 3.8 g/dL (2.4-3.5) H 08/10/18 16:16 Albumin/Globulin Ratio 0.9 (1.1-2.2) L 08/10/18 16:16 Ur Specific [place] 1.028 (1.010-1.025) H 08/10/18 20:30 Urine Protein 30 mg/dL (Neg-Trace) H 08/10/18 20:30 Urine Glucose (UA) 100 mg/dL (Normal) H 08/10/18 20:30 Urine Microscopic WBC 3-5 per hpf (0-3) H 08/10/18 20:30 Ur Squamous Epith Cells Many per lpf (None-Few) H 08/10/18 20:30 Hyaline Casts Many per lpf (None-Few) H 08/10/18 20:30 - Microbiology Findings Microbiology Findings: Microbiology, Last 48 Hours 08/10/18 20:31 Legionella Antigen - Final Urine,Catheterized Streptococcus pneumoniae Antigen (M - Final - Clinical Findings Intake & Output: Intake & Output 08/12/18 08/13/18 08/13/18 23:59 07:59 15:59 Intake Total 120 / 120 620 / 620 Output Total 1925 / 1925 525 / 525 400 / 400 Balance -1805 / -1805 -525 / -525 220 / 220 Weight 81.2 kg - Attending Attestation I examined this patient and my medical decision-making was reviewed with the Resident Physician. I agree with the documented findings, disposition and treatment plan as described except to the extent set forth below. Patient seen and examined. Labs, radiology, chart personally reviewed. Agree with resident's history and physical, assessment, plan with following comments: CLINICAL SUPPORT MANAGER: Patient follows commands, Pulmonary: Acceptable oxygenation and ventilation and noninvasive ventilation is helping. Transition to high flow as tolerated. Continue diuresis as tolerated Poorly. Continue treatment for possible pneumonia. Cardiovascular: Cardiology has seen patient and reviewed notes. GI: Nutrition per dietary and GI prophylaxis per routine Heme: DVT prophylaxis per routine ID: Continue antibiotics and plan to de-escalation Renal; urine out put and renal funtion reviewed Endorcine: blood glucose is monitored Lines: all lines checked and no evidence of infections Skin: skin care to prevent pressure ulcers per nursing routine care Patient remained stable possible transfer to telemetry bed.
[2018-08-13] MEDS ORDERED: Furosemide 20 MG/2 ML VIAL IVP ONE (11:36)
[2018-08-13] MEDS ORDERED: FLUoxetine 20 MG CAPSULE PO SCH (11:45)
--- NOTE | 2018-08-13 13:18 | Electrocardiograph Report ---
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
--- NOTE | 2018-08-13 13:21 | Electrocardiograph Report ---
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
[2018-08-13] MEDS ORDERED: Naloxone 0.4 MG/ML INJ IVP PRN (20:44)
[2018-08-13] MEDS ORDERED: *HR* Dextrose 50 % in Water (Syg) 50 ML SYRINGE IVP PRN (20:44)
[2018-08-13] MEDS ORDERED: Acetaminophen 325 MG TABLET PO PRN (20:44)
[2018-08-14 06:05] LABS: Basophils % 0.3 %; Eosinophils # 0.5 K/mcL (0.0-0.6); Eosinophils % 6.1 %; Hematocrit 27.8 % (35.3-44.9); Hemoglobin 8.9 g/dL (11.5-15.4); Immature Granulocytes % 0.3 % (0-4); Lymphocytes # 2.2 K/mcL (0.6-4.6); Lymphocytes % 27.8 %; Mean Corpuscular Hemoglobin 28.8 pg (28.0-33.3); Mean Platelet Volume 10.2 fL (9.4-12.4); Monocytes # 0.3 K/mcL (0.0-1.3); Monocytes % 3.4 %; Neutrophils # 4.9 K/mcL (1.6-8.9); Platelet Count 292 K/mcL (140-400); Red Blood Count 3.09 M/mcL (3.82-4.97); Red Cell Distribution Width 16.2 % (11.5-14.5); Segmented Neutrophils % 62.1 %
[2018-08-14] MEDS: *HR* Heparin 5,000 UNIT/ML VIAL SQ SCH ×3 (06:14→20:37)
[2018-08-14 06:25] LABS: Calcium 9.1 mg/dL (8.6-10.3); Magnesium 1.8 mg/dL (1.6-2.6); Potassium 4.3 mEq/L (3.5-5.1)
[2018-08-14] MEDS: Insulin LISPRO 300 UNITS/3 ML VIAL SQ SCH ×4 (08:28→20:37)
[2018-08-14] MEDS: Nicotine 21 MG PATCH.TD24 TD SCH (08:42)
[2018-08-14] MEDS: Aspirin 81 MG TAB.CHEW PO SCH (08:42)
[2018-08-14] MEDS: FLUoxetine 20 MG CAPSULE PO SCH (08:42)
[2018-08-14] MEDS ORDERED: Ipratropium/Albuterol Neb 3 ML IH PRN (10:37)
--- NOTE | 2018-08-14 10:37 | Internal Med Progress Note ---
Hospitalist Progress Note - Encounter Date of Encounter: 08/14/18 Time of Encounter: 10:34 - Subjective Interval History: Patient seen and examined this morning. No acute overnight events. On bipap overnight. Currently on high flow nasal canula. Negative 1.5 lit yesterday. Breathing improving.Denies fever, chills, N/V/D, urinary or bowel complains. - Exam Vitals: Temp Pulse Resp BP Pulse Ox 98.5 F 94 16 154/78 92 08/14/18 07:49 08/14/18 07:49 08/14/18 07:49 08/14/18 07:49 08/14/18 07:49 Exam: Gen: No acute distress, AOx3. on high flow nasal canula. RS: Crackles at bases bilaterally. Air entry equal CVS: RRR, Normal S1, S2, No MRG Ext: No edema, Lt toe amputated, Rt Heal ulcer with boots on. Skin: No rash noted - Summary of Assessment and Plan Summary of Assessment and Plan: Acute respiratory failure with hypoxia - Improving - Likely secondary to pneumonia and hydrostatic pulmonary edema - Currently off bipap. Pneumonia - leukocytosis improved - MRSA nasal swab negative. vancomycin stopped. negative respiratory infection panel, urine strep pneumo and legionella antigens. - c/w Levaquin Elevated brain natriuretic peptide (BNP) level - ECHO with EF 60-65. Normal RV and LV function - Appreciate cardiology recommendations - s/p diuresis with negative 6 lit. - will give one dose of lasix o 20. Elevated troponin - Not consistent with ACS - No intervention needed per cardiology - likely related to ROGER on cKD with demand ischemia. IV heparin stopped Diabetes mellitus - basal insulin held due to hypoglycemia. c/w Accu-Cheks and SSI. ROGER on CKD 3 - s/p diuresis with elevated BNP - Monitor I/O and electrolytes Will get PT eval - Time Spent with Patient Total time spent is greater than 50% in coordination of care (as documented) at patient's floor/unit and/or counseling patient: Internal Medicine: Result - Labs CBC & Chem 7: 08/14/18 05:20 08/14/18 05:20 Labs: Short CBC 08/14/18 Range/Units 05:20 WBC 7.9 (4.3-11.1) K/mcL Hgb 8.9 L (11.5-15.4) g/dL Hct 27.8 L (35.3-44.9) % Plt Count 292 (140-400) K/mcL Neutrophils # 4.9 (1.6-8.9) K/mcL BMP 08/14/18 05:20 Sodium 139 Potassium 4.3 Chloride 106 Carbon Dioxide 25 BUN 55 H Creatinine 1.25 H Glucose 112 H Calcium 9.1 - ABG Interpretation ABG results: ABG ABG pH 7.38 pH Units (7.32-7.45) 08/11/18 08:46 ABG pCO2 41 mmHg (35-45) 08/11/18 08:46 ABG pO2 56 mmHg (85-104) L 08/11/18 08:46 ABG O2 Saturation 88 % (95-98) L 08/11/18 08:46 Consult Discharge Plan - Plan Referrals: Alejandro Le DO [Primary Care Provider] -
[2018-08-14] MEDS ORDERED: Furosemide 20 MG/2 ML VIAL IVP ONE (10:51)
--- NOTE | 2018-08-14 13:30 | Pulmonology Progress Note ---
<Neto Dale - Last Filed: 08/14/18 17:23> Date of Encounter: 08/14/18 Time of Encounter: 13:30 Assessment and Plan (1) Acute respiratory failure with hypoxia Current Visit: Yes Status: Acute -Likely marked multifactorial because of her pneumonia and hydrostatic pulmonary edema as evidenced on chest x-ray. -Is currently on 10 liters of oxygen. She was taken on BiPAP yesterday morning. -Continue to monitor. target SpO2 : 92% to bring down FiO2 -Follow up with pulmonology as an outpatient for PFTs (2) Pneumonia Current Visit: No Status: Acute -Patient was admitted to the ICU because of pneumonia. Her MRSA swab, Legionella antigen, strep pneumo antigen tests have been negative. Her respiratory infection panel has been negative. -Currently she is on Levaquin, her white blood count has been trending down ( 22.5-> 19.7-> 13.3-> 7.4-> 7.9). Afebrile - On physical exam she has crackles bilaterally in lung bases. -Titrate oxygen for SPO2 greater than 88%. Continue Levaquin for a total of 7 days, recommended to go home on nebulizer. Qualifiers: Pneumonia type: due to unspecified organism Laterality: bilateral Lung location: unspecified part of lung Qualified Code(s): J18.9 - Pneumonia, unspecified organism (3) Elevated brain natriuretic peptide (BNP) level Current Visit: Yes Status: Acute -She had evidence of hydrostatic pulmonary edema on chest x-ray . -Echo showed LVEF of 60-65%. With normal left ventricle and right ventricular structure. - Patient is currently s/p diuresis with -6 L. Currently on Lasix 20 mg. - patient recommended to go home on 20 mg LAsix, and O2 for 4-6 weeks - (4) Acute kidney injury Current Visit: No Status: Resolved -Likely secondary to cardiorenal syndrome. BNP 391 on admission. Currently, ROGER has been resolving. Creatinine trending down (1.83 -> 2.08- > 1.61 -> 1.44 -> 1.25) -monitor electrolytes and urine output. Subjective Principal diagnosis: Respiratory Failure Interval history: Acute events overnight. Patient is on 13 L of oxygen satting at 94%. Nurses no acute competent of this morning. Denies any worsening shortness of breath, chest pain or productive cough. Objective PUL Vital signs: Last Vital Signs Temp 98.6 F 08/14/18 11:37 Pulse 88 08/14/18 11:37 Resp 16 08/14/18 11:37 BP 144/85 08/14/18 11:37 Pulse Ox 96 08/14/18 11:37 General appearance: no acute distress Effort: normal Auscultation: bilateral: rales (bilaterally lung bases) Cardiovascular: regular rate and rhythm Gastrointestinal: soft, non-tender, non-distended Extremities: no cyanosis Results - Laboratory Findings CBC and BMP: 08/14/18 05:20 08/14/18 05:20 ABG ABG pH 7.38 pH Units (7.32-7.45) 08/11/18 08:46 ABG pCO2 41 mmHg (35-45) 08/11/18 08:46 ABG pO2 56 mmHg (85-104) L 08/11/18 08:46 ABG O2 Saturation 88 % (95-98) L 08/11/18 08:46 Abnormal lab findings: Abnormal lab results RBC 3.09 M/mcL (3.82-4.97) L 08/14/18 05:20 Hgb 8.9 g/dL (11.5-15.4) L 08/14/18 05:20 Hct 27.8 % (35.3-44.9) L 08/14/18 05:20 RDW 16.2 % (11.5-14.5) H 08/14/18 05:20 Heparin Anti-Xa, Unfract 0.23 IU/mL (0.30-0.70) L 08/12/18 09:03 ABG pO2 56 mmHg (85-104) L 08/11/18 08:46 ABG O2 Saturation 88 % (95-98) L 08/11/18 08:46 BUN 55 mg/dL (6-20) H 08/14/18 05:20 Creatinine 1.25 mg/dL (0.60-1.20) H 08/14/18 05:20 Est GFR ( Amer) 56 (> 60) L 08/14/18 05:20 Est GFR (Non-Af Amer) 46 (> 60) L 08/14/18 05:20 BUN/Creatinine Ratio 44 (6-26) H 08/14/18 05:20 Glucose 112 mg/dL (70-105) H 08/14/18 05:20 Serum Osmolality 306 mOsm/kg (280-300) H 08/10/18 19:34 Calculated Osmolality 304 (280-300) H 08/14/18 05:20 Troponin I 0.61 ng/mL (< 0.04) H* 08/11/18 15:35 B-Natriuretic Peptide 391 pg/mL (Less than 100) H 08/10/18 16:15 Albumin 3.1 g/dL (3.5-5.7) L 08/12/18 12:00 Globulin 3.8 g/dL (2.4-3.5) H 08/10/18 16:16 Albumin/Globulin Ratio 0.9 (1.1-2.2) L 08/10/18 16:16 Ur Specific [place] 1.028 (1.010-1.025) H 08/10/18 20:30 Urine Protein 30 mg/dL (Neg-Trace) H 08/10/18 20:30 Urine Glucose (UA) 100 mg/dL (Normal) H 08/10/18 20:30 Urine Microscopic WBC 3-5 per hpf (0-3) H 08/10/18 20:30 Ur Squamous Epith Cells Many per lpf (None-Few) H 08/10/18 20:30 Hyaline Casts Many per lpf (None-Few) H 08/10/18 20:30 - Clinical Findings Intake & Output: Intake & Output 08/13/18 08/14/18 08/14/18 23:59 07:59 15:59 Intake Total 270 / 270 Output Total 475 / 475 Balance -205 / -205 Weight 81.8 kg Consult Discharge Plan - Plan Referrals: Alejandro Le DO [Primary Care Provider] - <Ragini Ford - Last Filed: 08/14/18 20:30> Date of Encounter: 08/14/18 Objective PUL Vital signs: Last Vital Signs Temp 98.2 F 08/14/18 19:45 Pulse 95 08/14/18 19:45 Resp 14 08/14/18 19:45 BP 128/78 08/14/18 19:45 Pulse Ox 89 08/14/18 19:45 Results - Laboratory Findings CBC and BMP: 08/14/18 05:20 08/14/18 05:20 ABG ABG pH 7.38 pH Units (7.32-7.45) 08/11/18 08:46 ABG pCO2 41 mmHg (35-45) 08/11/18 08:46 ABG pO2 56 mmHg (85-104) L 08/11/18 08:46 ABG O2 Saturation 88 % (95-98) L 08/11/18 08:46 Abnormal lab findings: Abnormal lab results RBC 3.09 M/mcL (3.82-4.97) L 08/14/18 05:20 Hgb 8.9 g/dL (11.5-15.4) L 08/14/18 05:20 Hct 27.8 % (35.3-44.9) L 08/14/18 05:20 RDW 16.2 % (11.5-14.5) H 08/14/18 05:20 Heparin Anti-Xa, Unfract 0.23 IU/mL (0.30-0.70) L 08/12/18 09:03 ABG pO2 56 mmHg (85-104) L 08/11/18 08:46 ABG O2 Saturation 88 % (95-98) L 08/11/18 08:46 BUN 55 mg/dL (6-20) H 08/14/18 05:20 Creatinine 1.25 mg/dL (0.60-1.20) H 08/14/18 05:20 Est GFR ( Amer) 56 (> 60) L 08/14/18 05:20 Est GFR (Non-Af Amer) 46 (> 60) L 08/14/18 05:20 BUN/Creatinine Ratio 44 (6-26) H 08/14/18 05:20 Glucose 112 mg/dL (70-105) H 08/14/18 05:20 Serum Osmolality 306 mOsm/kg (280-300) H 08/10/18 19:34 Calculated Osmolality 304 (280-300) H 08/14/18 05:20 Troponin I 0.61 ng/mL (< 0.04) H* 08/11/18 15:35 B-Natriuretic Peptide 391 pg/mL (Less than 100) H 08/10/18 16:15 Albumin 3.1 g/dL (3.5-5.7) L 08/12/18 12:00 Globulin 3.8 g/dL (2.4-3.5) H 08/10/18 16:16 Albumin/Globulin Ratio 0.9 (1.1-2.2) L 08/10/18 16:16 Ur Specific [place] 1.028 (1.010-1.025) H 08/10/18 20:30 Urine Protein 30 mg/dL (Neg-Trace) H 08/10/18 20:30 Urine Glucose (UA) 100 mg/dL (Normal) H 08/10/18 20:30 Urine Microscopic WBC 3-5 per hpf (0-3) H 08/10/18 20:30 Ur Squamous Epith Cells Many per lpf (None-Few) H 08/10/18 20:30 Hyaline Casts Many per lpf (None-Few) H 08/10/18 20:30 - Clinical Findings Intake & Output: Intake & Output 08/14/18 08/14/18 08/14/18 07:59 15:59 23:59 Intake Total 480 / 480 Balance 480 / 480 - Attending Attestation I saw and evaluated this patient and my medical decision-making was reviewed with the Resident Physician. I agree with the documented findings, disposition and treatment plan as described except to the extent set forth below. We independently had [id number] contact with the patient Patient seen and examined at bedside Labs, radiology, chart personally reviewed. Acute hypoxic respiratory failure secondary to hydrostatic pulmonary edema and pneumonia need aggressive incentive spirometry and bronchopulmonary hygiene will need at least a few more days of diuresis as long as hemodynamics tolerate. Outpatient polysomnogram for evaluation of sleep disorder breathing and pulmonary function test to ascertain the degree of obstructive ventilatory impairment. Patient will need few more nights of BIPAP . She will not qualify for BiPAP on based upon chronic hypercapnic respiratory failure that is why she will need Outpatient polysomnogram.
[2018-08-14] MEDS ORDERED: Gabapentin 400 MG CAPSULE PO SCH (16:30)
[2018-08-14] MEDS: Gabapentin 100 MG CAPSULE PO SCH (20:37)
[2018-08-15] MEDS: *HR* Heparin 5,000 UNIT/ML VIAL SQ SCH ×3 (05:11→21:37)
[2018-08-15 05:31] LABS: Basophils # 0.1 K/mcL (0.0-0.2); Basophils % 0.6 %; Eosinophils # 0.6 K/mcL (0.0-0.6); Eosinophils % 6.1 %; Hematocrit 30.3 % (35.3-44.9); Hemoglobin 9.7 g/dL (11.5-15.4); Immature Granulocytes % 0.3 % (0-4); Lymphocytes # 2.8 K/mcL (0.6-4.6); Lymphocytes % 27.4 %; Mean Corpuscular Hemoglobin 28.8 pg (28.0-33.3); Mean Corpuscular Volume 89.9 fL (83.0-100.0); Mean Platelet Volume 9.8 fL (9.4-12.4); Monocytes # 0.4 K/mcL (0.0-1.3); Monocytes % 3.6 %; Neutrophils # 6.3 K/mcL (1.6-8.9); Platelet Count 335 K/mcL (140-400); Red Blood Count 3.37 M/mcL (3.82-4.97)
[2018-08-15 05:53] LABS: Calcium 9.2 mg/dL (8.6-10.3); Magnesium 1.7 mg/dL (1.6-2.6); Potassium 4.3 mEq/L (3.5-5.1)
--- NOTE | 2018-08-15 07:46 | Event Note ---
Date of Encounter: 08/15/18 Time of Encounter: 07:30 To continue diuresis as hemodynamics and kidney function tolerated . Will wean FIO2 to saturation 92-94% . Patient will need outpatient evaluation for sleep disordered breathing and COPD . Pulmonary will sign off please call with questions.
[2018-08-15] MEDS: Gabapentin 100 MG CAPSULE PO SCH ×2 (08:57→21:36)
[2018-08-15] MEDS: Aspirin 81 MG TAB.CHEW PO SCH (08:57)
[2018-08-15] MEDS: FLUoxetine 20 MG CAPSULE PO SCH (08:58)
[2018-08-15] MEDS: Nicotine 21 MG PATCH.TD24 TD SCH (08:58)
[2018-08-15] MEDS ORDERED: Furosemide 20 MG/2 ML VIAL IVP SCH (09:00)
[2018-08-15] MEDS ORDERED: Levofloxacin 750 MG/150 ML 750 MG/150 ML BAG IVPB SCH (09:00)
[2018-08-15] MEDS: Insulin LISPRO 300 UNITS/3 ML VIAL SQ SCH ×5 (09:00→21:37)
--- NOTE | 2018-08-15 14:19 | Internal Med Progress Note ---
Hospitalist Progress Note - Encounter Date of Encounter: 08/15/18 Time of Encounter: 09:50 - Subjective Interval History: Patient seen and examined this morning. No acute overnight events. On high flow nasal canula. Negative 0.7 lit. Breathing improving. No fever, chills, N/V/D, urinary or bowel complains. - Exam Vitals: Temp Pulse Resp BP Pulse Ox 98.0 F 90 18 143/82 97 08/15/18 10:36 08/15/18 10:36 08/15/18 10:36 08/15/18 10:36 08/15/18 10:36 Exam: Gen: No acute distress, AOx3. on high flow nasal canula. RS: Crackles at bases bilaterally. Air entry equal b.l. Improved compared to yesterday. CVS: RRR, Normal S1, S2, No MRG Ext: No edema, Lt toe amputated, Rt Heal ulcer with boots on. Skin: No rash noted. chronic stasis dermatitis changes in both feet. - Summary of Assessment and Plan Summary of Assessment and Plan: Acute respiratory failure with hypoxia - Improving - Likely secondary to pneumonia and hydrostatic pulmonary edema - Currently off bipap. On High flow nasal canula. - Will do 6 min walk test with NC. - Continue diuresis. - Plan for Dc once oxygen need improve. Likely tomorrow. Pneumonia - leukocytosis improved - MRSA nasal swab negative. vancomycin stopped. negative respiratory infection panel, urine strep pneumo and legionella antigens. - c/w Levaquin Elevated BNP level - ECHO with EF 60-65. Normal RV and LV function - Appreciate cardiology recommendations - s/p diuresis with negative 6 lit. - Decrease lasix to daily. Elevated troponin - Not consistent with ACS - No intervention needed per cardiology - likely related to ROGER on cKD with demand ischemia. IV heparin stopped Diabetes mellitus - basal insulin held due to hypoglycemia. c/w Accu-Cheks and SSI. ROGER on CKD 3 - s/p diuresis with elevated BNP - Now at baseline. - cautious diuresis. Monitor I/O and electrolytes No needs per PT - Time Spent with Patient Total time spent is greater than 50% in coordination of care (as documented) at patient's floor/unit and/or counseling patient: Internal Medicine: Result - Labs CBC & Chem 7: 08/15/18 05:20 08/15/18 05:20 Labs: Short CBC 08/15/18 Range/Units 05:20 WBC 10.2 (4.3-11.1) K/mcL Hgb 9.7 L (11.5-15.4) g/dL Hct 30.3 L (35.3-44.9) % Plt Count 335 (140-400) K/mcL Neutrophils # 6.3 (1.6-8.9) K/mcL BMP 08/15/18 05:20 Sodium 141 Potassium 4.3 Chloride 105 Carbon Dioxide 26 BUN 59 H Creatinine 1.19 Glucose 194 H Calcium 9.2 - ABG Interpretation ABG results: ABG ABG pH 7.38 pH Units (7.32-7.45) 08/11/18 08:46 ABG pCO2 41 mmHg (35-45) 08/11/18 08:46 ABG pO2 56 mmHg (85-104) L 08/11/18 08:46 ABG O2 Saturation 88 % (95-98) L 08/11/18 08:46 Consult Discharge Plan - Plan Referrals: Alejandro Le DO [Primary Care Provider] -
[2018-08-15] MEDS ORDERED: Insulin DETEMIR 100 UNIT/ML X5UNITS SQ SCH (21:00)
[2018-08-16] MEDS ORDERED: levoFLOXacin 750 MG TABLET PO SCH (09:00)
[2018-08-16] MEDS ORDERED: Furosemide 20 MG/2 ML VIAL IVP SCH (09:00)
[2018-08-16] MEDS ORDERED: Levofloxacin 750 MG/150 ML 750 MG/150 ML BAG IVPB SCH (09:00)
[2018-08-16] MEDS: *HR* Heparin 5,000 UNIT/ML VIAL SQ SCH ×2 (12:01→15:08)
[2018-08-16] MEDS: Nicotine 21 MG PATCH.TD24 TD SCH (12:03)
[2018-08-16] MEDS: Insulin LISPRO 300 UNITS/3 ML VIAL SQ SCH ×2 (12:03→12:07)
[2018-08-16] MEDS: Gabapentin 100 MG CAPSULE PO SCH (12:04)
[2018-08-16] MEDS: Aspirin 81 MG TAB.CHEW PO SCH (12:04)
[2018-08-16] MEDS: FLUoxetine 20 MG CAPSULE PO SCH (12:05)
--- NOTE | 2018-08-16 13:04 | Discharge Summary ---
- NOTES TO OUTPATIENT PROVIDER Notes to Outpatient Provider: Patient completed treatment for pneumonia. Will need follow-up with pulmonology for PFT. Given albuterol inhaler prescription. Also needed increased oxygen 4 L/m compared to her baseline 2 L/m. Started on Lasix for pulmonary edema. Lisinopril/HCTZ held due to ROGER. Needs follow-up BMP. Orders not resulted at time of discharge: Pending orders 08/10/18 15:27 Culture,Blood [BC] Stat 08/10/18 15:29 Culture,Sputum with Gram Stain [RM] Routine Date of Encounter: 08/16/18 Time of Encounter: 12:58 Hospital course: Ms. Larson is a 47 year old female past history of diabetes, GERD, hypertension came with difficulty breathing for 3 weeks. Patient was found to have pneumonia as well as elevated BNP. Patient was put on BiPAP started on Levaquin and diuresis. Patient had initial elevated troponin as well as ROGER. Cardiology was consulted. Her elevated troponin was deemed to be from a combination of AK I and increased oxygen demand due to respiratory insuf ficiency. Echocardiography showed EF of 60-65, normal LV and RV function and wall motion. She was taken off BiPAP and started on nasal cannula which he tolerated well. Her ROGER improved with diuresis. Her lisinopril/HCTZ and metformin was held urinary catheter. Her oxygenation improved however she currently needs increased oxygen about 4 L/m compared to her 2 L/m at home. She needs further outpatient evaluation with PFT. We will need to be on Lasix for a few weeks. Currently patient will be discharged home with 4 LPM oxygen nasal cannula. She finished her course of antibiotics. On discharge her lisinopril/hydrochlorothiazide were held temporarily until follow up blood work. Discharge discussed with: patient, nurse (35), social work, case management - Time Spent with Patient Total time spent providing and/or coordinating discharge services: Greater than 30 minutes (40) - Discharge Medications Prescriptions: Albuterol Sulfate [Albuterol Inhaler] 1 puff IH Q4H PRN 30 Days #1 inhaler PRN Reason: Shortness Of Breath Furosemide [Lasix] 20 mg PO DAILY 30 Days #30 tablet Home Medications: Insulin Glargine,Hum.rec.anlog [Lantus Solostar] 32 units SQ HS 08/13/15 [History] Aspirin [Lo-Dose Aspirin EC] 81 mg PO DAILY 10/10/17 [History] Omeprazole [PriLOSEC] 20 mg PO DAILY 10/10/17 [History] Gabapentin [Neurontin] 800 mg PO TID 11/23/17 [History] Liraglutide [Victoza 2-Yunier] 1.2 mg SQ DAILY 01/09/18 [History] FLUoxetine HCl [Prozac] 40 mg PO QAM 02/15/18 [History] Metformin HCl [Metformin HCl ER] 500 mg PO BID 06/28/18 [History] Quetiapine Fumarate [Seroquel] 100 mg PO HS 06/28/18 [History] Cholecalciferol (Vitamin D3) [Vitamin D3] 10,000 unit PO WE 08/10/18 [History] Insulin ASPART [NovoLOG] 0 - 12 unit SQ TIDWM 08/10/18 [History] Metoprolol [Lopressor] 25 mg PO BID 08/10/18 [History] Buprenorphine HCl/Naloxone HCl [Suboxone 8 mg-2 mg Sl Film] 1 each SL BID 08/15/18 [History] Albuterol Sulfate [Albuterol Inhaler] 1 puff IH Q4H PRN 30 Days #1 inhaler 08/16/18 [Rx] Furosemide [Lasix] 20 mg PO DAILY 30 Days #30 tablet 08/16/18 [Rx] Allergies/Adverse Reactions: Allergy/AdvReac Type Severity Reaction Status Date / Time Penicillins Allergy Swelling Verified 06/20/18 10:51 of Lip/Tongue/Throat Date of admission: 08/10/18 14:16 Primary care physician: Alejandro Le Consults: 08/11/18 07:42 Consult to Cardiology [CONS] Routine Comment: Consulting Provider: Cardiology Bina Reason for Consult: Respiratory distress-possible secondary to heart failure. Elevated troponins trending upward. Call Completed: Yes 08/14/18 16:46 Consult to Wound Care [CONS] Routine Reason for Consult: diabetic wound to right heel Call Completed: No Discharging clinician: Annia Park Tran - Constitutional Vitals: Temp Pulse Resp BP Pulse Ox 98.6 F 92 14 150/83 88 08/15/18 19:37 08/15/18 19:37 08/15/18 19:37 08/15/18 19:37 08/15/18 19:37 General appearance: Present: no acute distress Exam: Gen: No acute distress, AOx3. on high flow nasal canula. RS: Crackles at bases bilaterally. Air entry equal b.l. Improved compared to yesterday. CVS: RRR, Normal S1, S2, No MRG Abdomen: Soft, nontender, non distended Ext: No edema, Lt toe amputated, Rt Heal ulcer with boots on. Skin: No rash noted. chronic stasis dermatitis changes in both feet. - Patient Status Disposition: Home, Self-Care Condition: Good - Discharge Instructions Follow Up With: Alejandro Le DO [Primary Care Provider] - - Diet and Activity Activity: wear oxygen at all times
[2018-08-16 13:47] VITALS: BP 128/79
[2018-08-16] MEDS ORDERED: FLU VAC QV 2018(18YR UP)RCM/PF 0.5 ML SYRINGE IM ONE (15:30)
[2018-08-16] MEDS ORDERED: Furosemide 20 MG/2 ML VIAL IVP ONE (15:57)
[2018-08-16] MEDS ORDERED: levoFLOXacin 750 MG TABLET PO ONE (15:57)
[2018-08-16] MEDS ORDERED: *HR* Heparin 5,000 UNIT/ML VIAL IVP ONE (15:57)
[2018-08-16] MEDS ORDERED: FLUoxetine 20 MG CAPSULE PO ONE (15:57)
[2018-08-16] MEDS ORDERED: Nicotine 21 MG PATCH.TD24 TD ONE (15:57)
[2018-08-16] MEDS ORDERED: Gabapentin 100 MG CAPSULE PO ONE (15:57)
[2018-08-16] MEDS ORDERED: Aspirin 81 MG TAB.CHEW PO ONE (15:57)
== END 2018-08-16 15:58 | disposition home or self-care (01) | DRG 871 ==
LOC: SUATTDRO 14:16 → ICNU 14:16 → 3ANU 08-13 20:38
PROVIDERS: ADMIT Internal Medicine Hospice and Palliative Medicine; ATTEND Internal Medicine

== ENCOUNTER 2019-09-27 14:23 | Inpatient (IN) ==
[2019-09-27 16:15] LABS: Calcium 9.6 mg/dL (8.6-10.3); Potassium 5.3 mEq/L (3.5-5.1)
[2019-09-27 16:24] LABS: Basophils # 0.1 K/mcL (0.0-0.2); Basophils % 0.8 %; Eosinophils # 0.3 K/mcL (0.0-0.6); Hematocrit 35.4 % (35.3-44.9); Hemoglobin 12.1 g/dL (11.5-15.4); Immature Granulocytes % 0.3 % (0-4); Lymphocytes # 2.2 K/mcL (0.6-4.6); Lymphocytes % 29.3 %; Mean Corpuscular HGB Conc 34.2 g/dL (31.6-35.5); Mean Corpuscular Hemoglobin 30.9 pg (28.0-33.3); Mean Corpuscular Volume 90.5 fL (83.0-100.0); Mean Platelet Volume 10.1 fL (9.4-12.4); Monocytes # 0.4 K/mcL (0.0-1.3); Neutrophils # 4.5 K/mcL (1.6-8.9); Platelet Count 345 K/mcL (140-400); Red Blood Count 3.91 M/mcL (3.82-4.97); Red Cell Distribution Width 12.8 % (11.5-14.5); Segmented Neutrophils % 60.6 %; White Blood Count 7.5 K/mcL (4.3-11.1)
[2019-09-27] MEDS ORDERED: Acetaminophen 325 MG TABLET PO PRN (16:58)
[2019-09-27] MEDS ORDERED: Ondansetron 4 MG/2 ML VIAL IVP PRN (16:58)
[2019-09-27] MEDS ORDERED: *HR* Dextrose 50 % in Water (Syg) 50 ML SYRINGE IVP PRN (17:02)
[2019-09-27] MEDS ORDERED: Dextrose Gel 15 GM/37.5 ML TUBE PO PRN ×2 (17:02)
[2019-09-27] MEDS ORDERED: D5% in Water 1,000 ML IVC PRN (17:02)
[2019-09-27] MEDS: Gabapentin 400 MG CAPSULE PO SCH (21:04)
[2019-09-27] MEDS: Insulin DETEMIR 100 UNIT/ML X5UNITS SQ SCH (21:05)
[2019-09-27] MEDS: (Buprenorphine Hcl/Naloxone Hcl [Suboxone 8 Mg-2 Mg SL) SL SCH (21:08)
[2019-09-27] MEDS: Insulin LISPRO 300 UNITS/3 ML VIAL SQ SCH (23:10)
[2019-09-28 04:47] LABS: Hematocrit 31.5 % (35.3-44.9); Hemoglobin 10.3 g/dL (11.5-15.4); Mean Corpuscular HGB Conc 32.7 g/dL (31.6-35.5); Mean Corpuscular Hemoglobin 30.7 pg (28.0-33.3); Mean Platelet Volume 10.3 fL (9.4-12.4); Platelet Count 277 K/mcL (140-400); Red Blood Count 3.35 M/mcL (3.82-4.97); Red Cell Distribution Width 12.8 % (11.5-14.5)
[2019-09-28 04:48] LABS: Prothrombin Time 11.1 Seconds (9.4-12.1)
[2019-09-28 05:08] LABS: Calcium 9.1 mg/dL (8.6-10.3); Magnesium 1.7 mg/dL (1.6-2.6); Potassium 4.6 mEq/L (3.5-5.1)
[2019-09-28] MEDS: Aspirin Enteric Coated 81 MG Tablet PO SCH (07:46)
[2019-09-28] MEDS: Insulin LISPRO 300 UNITS/3 ML VIAL SQ SCH ×4 (07:46→21:53)
[2019-09-28] MEDS ORDERED: Ringers Solution, Lactated 1,000 ML IVC SCH (08:30)
[2019-09-28] MEDS: FLUoxetine 20 MG CAPSULE PO SCH (08:31)
[2019-09-28] MEDS: Gabapentin 400 MG CAPSULE PO SCH ×2 (08:31→21:40)
[2019-09-28] MEDS: BuPROPion XL (24 HR) 150 MG TABLET PO SCH (08:31)
[2019-09-28] MEDS ORDERED: Lisinopril 20 MG TABLET PO SCH (09:00)
[2019-09-28] MEDS: (Buprenorphine Hcl/Naloxone Hcl [Suboxone 8 Mg-2 Mg SL) SL SCH ×2 (09:30→21:40)
[2019-09-28] MEDS ORDERED: Cefepime HCl 1,000 MG in Water for inj. (sterile) 10 ML IVP ONE (16:31)
[2019-09-29 01:16] LABS: Hematocrit 32.1 % (35.3-44.9); Hemoglobin 10.7 g/dL (11.5-15.4); Immature Platelets 2.2 % (1.1-6.1); Mean Corpuscular HGB Conc 33.3 g/dL (31.6-35.5); Mean Corpuscular Hemoglobin 30.7 pg (28.0-33.3); Mean Corpuscular Volume 92.2 fL (83.0-100.0); Mean Platelet Volume 10.2 fL (9.4-12.4); Red Blood Count 3.48 M/mcL (3.82-4.97); Red Cell Distribution Width 13.2 % (11.5-14.5); White Blood Count 7.1 K/mcL (4.3-11.1)
[2019-09-29 01:37] LABS: Calcium 9.1 mg/dL (8.6-10.3); Potassium 5.4 mEq/L (3.5-5.1)
[2019-09-29] MEDS: FLUoxetine 20 MG CAPSULE PO SCH (09:11)
[2019-09-29] MEDS: Insulin LISPRO 300 UNITS/3 ML VIAL SQ SCH ×4 (09:11→21:59)
[2019-09-29] MEDS: (Buprenorphine Hcl/Naloxone Hcl [Suboxone 8 Mg-2 Mg SL) SL SCH ×2 (09:11→22:14)
[2019-09-29] MEDS: Aspirin Enteric Coated 81 MG Tablet PO SCH (09:11)
[2019-09-29] MEDS: BuPROPion XL (24 HR) 150 MG TABLET PO SCH (09:11)
[2019-09-29] MEDS: Gabapentin 400 MG CAPSULE PO SCH ×2 (09:11→21:58)
[2019-09-29] MEDS: Insulin DETEMIR 100 UNIT/ML X5UNITS SQ SCH ×2 (22:14→22:18)
[2019-09-30 01:24] LABS: Hematocrit 31.8 % (35.3-44.9); Hemoglobin 10.2 g/dL (11.5-15.4); Mean Corpuscular HGB Conc 32.1 g/dL (31.6-35.5); Mean Corpuscular Hemoglobin 30.8 pg (28.0-33.3); Mean Corpuscular Volume 96.1 fL (83.0-100.0); Mean Platelet Volume 10.5 fL (9.4-12.4); Platelet Count 277 K/mcL (140-400); Red Blood Count 3.31 M/mcL (3.82-4.97); Red Cell Distribution Width 13.2 % (11.5-14.5); White Blood Count 6.9 K/mcL (4.3-11.1)
[2019-09-30 01:44] LABS: Calcium 8.3 mg/dL (8.6-10.3); Magnesium 1.8 mg/dL (1.6-2.6); Potassium 4.9 mEq/L (3.5-5.1)
[2019-09-30] MEDS: Insulin LISPRO 300 UNITS/3 ML VIAL SQ SCH ×2 (08:36→12:25)
[2019-09-30] MEDS: Aspirin Enteric Coated 81 MG Tablet PO SCH (08:51)
[2019-09-30] MEDS: Gabapentin 400 MG CAPSULE PO SCH (08:52)
[2019-09-30] MEDS: (Buprenorphine Hcl/Naloxone Hcl [Suboxone 8 Mg-2 Mg SL) SL SCH (08:52)
[2019-09-30] MEDS: FLUoxetine 20 MG CAPSULE PO SCH (08:52)
[2019-09-30] MEDS: BuPROPion XL (24 HR) 150 MG TABLET PO SCH (08:52)
[2019-09-30 15:43] VITALS: BP 148/82
== END 2019-09-30 20:15 | disposition home or self-care (01) | DRG 638 ==
LOC: EMEROOARM 14:23 → 3NENU 14:23 → SUATTDRO 16:58 → 3NENU 17:31
PROVIDERS: ADMIT Internal Medicine; ATTEND Internal Medicine

== ENCOUNTER 2019-11-12 11:41 | Inpatient (IN) ==
[~2019-11-12 11:41] MED LIST: ceFAZolin 1,000 MG, Sodium Chloride IRRigation 1,000 ML IR ONE; cefOXitin 1,000 MG, Sodium Chloride IRRigation 1,000 ML IR ONE
[2019-11-12] MEDS ORDERED: Famotidine 20 MG/2 ML VIAL IVP ONE (12:29)
[2019-11-12] MEDS ORDERED: Acetaminophen IV 1,000 MG/100 ML INFUS..BTL IVPB ONE (12:29)
[2019-11-12] MEDS ORDERED: Ringers Solution, Lactated 1,000 ML IVC SCH (12:45)
[2019-11-12] MEDS ORDERED: *HR* FentaNYL (PF) 100 MCG/2 ML VIAL ONE (14:30)
[2019-11-12] MEDS ORDERED: *HR* Midazolam HCl 2 MG/2 ML VIAL ONE (14:30)
[2019-11-12] MEDS ORDERED: Ropivacaine/PF 0.5% 30 ML VIAL ONE (14:46)
[2019-11-12] MEDS ORDERED: ROPIVACAINE/PF/NS 0.25% 1 EACH SYRINGE INTRAART ONE (14:46)
[2019-11-12] MEDS ORDERED: *HR* Propofol 200 MG/20 ML VIAL IVP ONE (15:27)
[2019-11-12] MEDS ORDERED: Lidocaine -MPF 2% 2 ML VIAL ONE (15:27)
[2019-11-12] MEDS ORDERED: Lidocaine HCL 4 ML Topical Solution (Laryng-O-Jet Kit Sterile Pak) TP ONE (15:29)
[2019-11-12] MEDS ORDERED: *HR* Rocuronium Bromide 50 MG/5 ML VIAL ONE (15:30)
[2019-11-12] MEDS ORDERED: Vancomycin 1,000 MG VIAL ONE (15:35)
[2019-11-12] MEDS ORDERED: Dexamethasone 4 MG/ML VIAL ONE (15:36)
[2019-11-12] MEDS ORDERED: Ondansetron 4 MG/2 ML VIAL ONE (15:37)
[2019-11-12] MEDS ORDERED: *HR* PHENYLEPHRINE 1,000 MCG/10 ML SYRINGE IVP ONE ×2 (15:47→17:36)
[2019-11-12] MEDS ORDERED: Pregabalin 75 MG CAPSULE PO ONE (18:11)
[2019-11-12] MEDS: *HR* HYDROmorphone (PF) 1 MG/ML SYRINGE IVP PRN ×2 (18:18→18:28)
[2019-11-12] MEDS ORDERED: Ketorolac 30 MG/ML VIAL IVP ONE (20:13)
[2019-11-12] MEDS ORDERED: *HR* HYDROcodone/Acet 5/325 mg TABLET PO PRN (20:13)
[2019-11-12] MEDS ORDERED: Morphine PCA 30 MG/ 30 ML 30 ML PCA.VIAL IVC PRN (20:13)
[2019-11-12] MEDS: Gabapentin 400 MG CAPSULE PO SCH (21:12)
[2019-11-12] MEDS: Lisinopril-HCTZ 20-12.5mg TABLET PO SCH (21:12)
[2019-11-12] MEDS: Insulin DETEMIR 100 UNIT/ML X5UNITS SQ SCH (21:25)
[2019-11-12] MEDS: 0.9 % Sodium Chloride 1,000 ML IVC SCH (22:06)
[2019-11-13 03:21] LABS: Basophils % 0.1 %; Hematocrit 26.7 % (35.3-44.9); Immature Granulocytes % 0.2 % (0-4); Lymphocytes # 0.3 K/mcL (0.6-4.6); Lymphocytes % 3.6 %; Mean Corpuscular HGB Conc 32.2 g/dL (31.6-35.5); Mean Corpuscular Volume 96.4 fL (83.0-100.0); Mean Platelet Volume 10.3 fL (9.4-12.4); Monocytes # 0.1 K/mcL (0.0-1.3); Monocytes % 0.8 %; Neutrophils # 7.9 K/mcL (1.6-8.9); Platelet Count 248 K/mcL (140-400); Red Blood Count 2.77 M/mcL (3.82-4.97); Segmented Neutrophils % 95.3 %; White Blood Count 8.3 K/mcL (4.3-11.1)
[2019-11-13 03:25] LABS: Hemoglobin 8.6 g/dL (11.5-15.4)
[2019-11-13 06:14] LABS: Potassium 6.1 mEq/L (3.5-5.1)
[2019-11-13] MEDS: Insulin LISPRO 300 UNITS/3 ML VIAL SQ SCH ×4 (08:18→21:50)
[2019-11-13] MEDS: Aspirin Enteric Coated 81 MG Tablet PO SCH (08:20)
[2019-11-13] MEDS: Gabapentin 400 MG CAPSULE PO SCH ×3 (08:20→21:33)
[2019-11-13] MEDS: BuPROPion XL (24 HR) 150 MG TABLET PO SCH (08:20)
[2019-11-13] MEDS: Lisinopril-HCTZ 20-12.5mg TABLET PO SCH ×2 (08:21→21:33)
[2019-11-13] MEDS: FLUoxetine 20 MG CAPSULE PO SCH ×2 (08:21)
[2019-11-13] MEDS ORDERED: Morphine PCA 30 MG/ 30 ML 30 ML PCA.VIAL IVC PRN ×2 (12:46→18:28)
[2019-11-13] MEDS: Ondansetron 4 MG/2 ML VIAL IVP PRN (16:57)
[2019-11-13] MEDS: 0.9 % Sodium Chloride 1,000 ML IVC SCH (17:01)
[2019-11-13] MEDS: Insulin DETEMIR 100 UNIT/ML X5UNITS SQ SCH (21:32)
[2019-11-14 05:57] LABS: Hematocrit 23.4 % (35.3-44.9); Hemoglobin 7.5 g/dL (11.5-15.4); Mean Corpuscular HGB Conc 32.1 g/dL (31.6-35.5); Mean Corpuscular Hemoglobin 31.4 pg (28.0-33.3); Mean Corpuscular Volume 97.9 fL (83.0-100.0); Platelet Count 230 K/mcL (140-400); Red Blood Count 2.39 M/mcL (3.82-4.97); Red Cell Distribution Width 13.3 % (11.5-14.5); White Blood Count 9.3 K/mcL (4.3-11.1)
[2019-11-14] MEDS: Lisinopril-HCTZ 20-12.5mg TABLET PO SCH (08:46)
[2019-11-14] MEDS: Gabapentin 400 MG CAPSULE PO SCH ×3 (08:46→20:34)
[2019-11-14] MEDS: BuPROPion XL (24 HR) 150 MG TABLET PO SCH (08:46)
[2019-11-14] MEDS: FLUoxetine 20 MG CAPSULE PO SCH ×2 (08:46→08:48)
[2019-11-14] MEDS: Aspirin Enteric Coated 81 MG Tablet PO SCH (08:46)
[2019-11-14] MEDS: Insulin LISPRO 300 UNITS/3 ML VIAL SQ SCH ×4 (08:47→20:33)
[2019-11-14] MEDS: Ondansetron 4 MG/2 ML VIAL IVP PRN (08:57)
[2019-11-14] MEDS: 0.9 % Sodium Chloride 1,000 ML IVC SCH ×2 (10:05→20:40)
[2019-11-14] MEDS ORDERED: Acetaminophen IV 1,000 MG/100 ML INFUS..BTL IVPB ONE ×2 (10:21→18:55)
[2019-11-14 11:03] LABS: Calcium 7.8 mg/dL (8.6-10.3); Potassium 4.4 mEq/L (3.5-5.1)
[2019-11-14] MEDS: *HR* Buprenorphine HCl 8 MG TAB.SUBL SL SCH ×2 (16:05→20:34)
[2019-11-14] MEDS ORDERED: 0.9 % Sodium Chloride 250 ML ONE (17:17)
[2019-11-14] MEDS: Insulin DETEMIR 100 UNIT/ML X5UNITS SQ SCH (20:37)
[2019-11-15 00:44] LABS: Red Blood Count 2.92 M/mcL (3.82-4.97); White Blood Count 9.4 K/mcL (4.3-11.1)
[2019-11-15 00:45] LABS: Basophils % 0.3 %; Eosinophils # 0.3 K/mcL (0.0-0.6); Eosinophils % 2.9 %; Hematocrit 27.6 % (35.3-44.9); Hemoglobin 9.1 g/dL (11.5-15.4); Immature Granulocytes % 0.4 % (0-4); Lymphocytes # 2.5 K/mcL (0.6-4.6); Lymphocytes % 26.8 %; Mean Corpuscular Hemoglobin 31.2 pg (28.0-33.3); Mean Corpuscular Volume 94.5 fL (83.0-100.0); Mean Platelet Volume 10.2 fL (9.4-12.4); Monocytes # 0.7 K/mcL (0.0-1.3); Neutrophils # 5.9 K/mcL (1.6-8.9); Platelet Count 268 K/mcL (140-400); Red Cell Distribution Width 13.9 % (11.5-14.5); Segmented Neutrophils % 62.6 %
[2019-11-15 00:51] LABS: Calcium 7.9 mg/dL (8.6-10.3); Potassium 4.7 mEq/L (3.5-5.1); Uric Acid 7.1 mg/dL (2.3-7.6)
[2019-11-15 01:17] LABS: Vitamin B12 725 pg/mL (250-1100); Vitamin D 25 Hydroxy 15 ng/mL (30-80)
[2019-11-15 03:15] LABS: Hepatitis B Surface Antigen Nonreactive (Nonreactive)
[2019-11-15 03:44] LABS: Hepatitis B Core IgM Nonreactive (Nonreactive); Hepatitis C Virus Antibody Nonreactive (Nonreactive)
[2019-11-15 03:45] LABS: Hepatitis A Antibody IgM Nonreactive (Nonreactive)
[2019-11-15] MEDS: 0.9 % Sodium Chloride 1,000 ML IVC SCH ×2 (05:11→13:28)
[2019-11-15] MEDS: Insulin LISPRO 300 UNITS/3 ML VIAL SQ SCH ×4 (07:42→20:44)
[2019-11-15] MEDS: BuPROPion XL (24 HR) 150 MG TABLET PO SCH (08:37)
[2019-11-15] MEDS: FLUoxetine 20 MG CAPSULE PO SCH ×2 (08:37)
[2019-11-15] MEDS: Aspirin Enteric Coated 81 MG Tablet PO SCH (08:37)
[2019-11-15] MEDS: Gabapentin 400 MG CAPSULE PO SCH ×3 (08:37→20:43)
[2019-11-15] MEDS: *HR* Buprenorphine HCl 8 MG TAB.SUBL SL SCH ×2 (08:37→20:43)
[2019-11-15] MEDS ORDERED: 0.9 % Sodium Chloride 1,000 ML IVC ONE (16:10)
[2019-11-15] MEDS: Sodium Bicarbonate 75 MEQ in 0.45 % Sodium Chloride 1,000 ML IVC SCH (20:43)
[2019-11-15] MEDS: Insulin DETEMIR 100 UNIT/ML X5UNITS SQ SCH (20:43)
[2019-11-16] MEDS: Sodium Bicarbonate 75 MEQ in 0.45 % Sodium Chloride 1,000 ML IVC SCH ×3 (04:13→22:00)
[2019-11-16] MEDS: Insulin LISPRO 300 UNITS/3 ML VIAL SQ SCH ×4 (07:37→22:03)
[2019-11-16] MEDS: *HR* Buprenorphine HCl 8 MG TAB.SUBL SL SCH ×2 (07:49→22:01)
[2019-11-16] MEDS: Aspirin Enteric Coated 81 MG Tablet PO SCH (07:49)
[2019-11-16] MEDS: BuPROPion XL (24 HR) 150 MG TABLET PO SCH (07:49)
[2019-11-16] MEDS: Gabapentin 400 MG CAPSULE PO SCH ×3 (07:49→22:02)
[2019-11-16] MEDS: FLUoxetine 20 MG CAPSULE PO SCH ×2 (07:49)
[2019-11-16] MEDS: Insulin DETEMIR 100 UNIT/ML X5UNITS SQ SCH (22:02)
[2019-11-17 04:16] LABS: Hematocrit RBC Folate 27.6 %
[2019-11-17 05:12] LABS: Basophils % 0.4 %; Eosinophils # 0.3 K/mcL (0.0-0.6); Hematocrit 24.3 % (35.3-44.9); Immature Granulocytes % 0.1 % (0-4); Lymphocytes # 1.9 K/mcL (0.6-4.6); Lymphocytes % 26.3 %; Mean Corpuscular HGB Conc 32.9 g/dL (31.6-35.5); Mean Corpuscular Hemoglobin 30.8 pg (28.0-33.3); Mean Corpuscular Volume 93.5 fL (83.0-100.0); Monocytes # 0.5 K/mcL (0.0-1.3); Monocytes % 6.3 %; Neutrophils # 4.5 K/mcL (1.6-8.9); Platelet Count 235 K/mcL (140-400); Red Cell Distribution Width 13.4 % (11.5-14.5); Segmented Neutrophils % 62.9 %; White Blood Count 7.2 K/mcL (4.3-11.1)
[2019-11-17] MEDS: Sodium Bicarbonate 75 MEQ in 0.45 % Sodium Chloride 1,000 ML IVC SCH ×2 (05:30→13:38)
[2019-11-17 05:31] LABS: Albumin 2.7 g/dL (3.5-5.7); Calcium 7.7 mg/dL (8.6-10.3); Phosphorous 2.7 mg/dL (2.7-4.5); Potassium 4.2 mEq/L (3.5-5.1)
[2019-11-17] MEDS: Insulin LISPRO 300 UNITS/3 ML VIAL SQ SCH ×4 (07:42→22:18)
[2019-11-17] MEDS: *HR* Buprenorphine HCl 8 MG TAB.SUBL SL SCH ×2 (07:55→22:18)
[2019-11-17] MEDS: Aspirin Enteric Coated 81 MG Tablet PO SCH (07:55)
[2019-11-17] MEDS: BuPROPion XL (24 HR) 150 MG TABLET PO SCH (07:55)
[2019-11-17] MEDS: Gabapentin 400 MG CAPSULE PO SCH ×3 (07:55→22:18)
[2019-11-17] MEDS: FLUoxetine 20 MG CAPSULE PO SCH ×2 (07:55)
[2019-11-17] MEDS ORDERED: Dextrose Gel 15 GM/37.5 ML TUBE PO PRN ×2 (08:13)
[2019-11-17] MEDS ORDERED: *HR* Dextrose 50 % in Water (Syg) 50 ML SYRINGE IVP PRN (08:13)
[2019-11-17] MEDS ORDERED: D5% in Water 1,000 ML IVC PRN (08:13)
[2019-11-17] MEDS ORDERED: Gabapentin 400 MG CAPSULE PO ONE (17:53)
[2019-11-18 04:55] LABS: Basophils % 0.4 %; Eosinophils # 0.3 K/mcL (0.0-0.6); Eosinophils % 2.6 %; Hematocrit 25.1 % (35.3-44.9); Hemoglobin 8.4 g/dL (11.5-15.4); Immature Granulocytes % 0.3 % (0-4); Lymphocytes % 20.3 %; Mean Corpuscular HGB Conc 33.5 g/dL (31.6-35.5); Mean Corpuscular Volume 92.6 fL (83.0-100.0); Mean Platelet Volume 10.2 fL (9.4-12.4); Monocytes # 0.6 K/mcL (0.0-1.3); Monocytes % 6.1 %; Neutrophils # 6.9 K/mcL (1.6-8.9); Platelet Count 309 K/mcL (140-400); Red Blood Count 2.71 M/mcL (3.82-4.97); Red Cell Distribution Width 13.5 % (11.5-14.5); Segmented Neutrophils % 70.3 %; White Blood Count 9.8 K/mcL (4.3-11.1)
[2019-11-18 05:18] LABS: Calcium 7.9 mg/dL (8.6-10.3); Potassium 4.4 mEq/L (3.5-5.1)
[2019-11-18] MEDS: Gabapentin 400 MG CAPSULE PO SCH ×3 (08:23→21:06)
[2019-11-18] MEDS: BuPROPion XL (24 HR) 150 MG TABLET PO SCH (08:23)
[2019-11-18] MEDS: Aspirin Enteric Coated 81 MG Tablet PO SCH (08:23)
[2019-11-18] MEDS: FLUoxetine 20 MG CAPSULE PO SCH ×2 (08:24→08:25)
[2019-11-18] MEDS: *HR* Buprenorphine HCl 8 MG TAB.SUBL SL SCH ×2 (08:25→21:06)
[2019-11-18] MEDS: Insulin LISPRO 300 UNITS/3 ML VIAL SQ SCH ×4 (08:26→21:06)
[2019-11-18] MEDS: *HR* Heparin 5,000 UNIT/ML VIAL SQ SCH (21:06)
[2019-11-19] MEDS: *HR* Heparin 5,000 UNIT/ML VIAL SQ SCH (06:10)
[2019-11-19] MEDS: Insulin LISPRO 300 UNITS/3 ML VIAL SQ SCH ×2 (09:42→12:00)
[2019-11-19] MEDS: Gabapentin 400 MG CAPSULE PO SCH (09:43)
[2019-11-19] MEDS: *HR* Buprenorphine HCl 8 MG TAB.SUBL SL SCH (09:44)
[2019-11-19] MEDS: FLUoxetine 20 MG CAPSULE PO SCH ×2 (09:44)
[2019-11-19] MEDS: BuPROPion XL (24 HR) 150 MG TABLET PO SCH (09:44)
[2019-11-19] MEDS: Aspirin Enteric Coated 81 MG Tablet PO SCH (09:44)
[2019-11-19 11:34] VITALS: BP 133/85
== END 2019-11-19 13:20 | DRG 617 ==
LOC: SAMDAY 11:41 → 2NNU 14:29
PROVIDERS: ADMIT Surgery Vascular Surgery; ATTEND Surgery Vascular Surgery

== ENCOUNTER 2019-11-22 01:18 | Inpatient (IN) ==
[2019-11-22 03:27] LABS: VBG HCO3 23 mEq/L (21-27); VBG PCO2 45 mmHg (41-51); VBG PH 7.31 pH Units (7.32-7.42); VBG PO2 85 mmHg (25-50)
[2019-11-22] MEDS ORDERED: Naloxone 0.4 MG/ML INJ IVP PRN (03:27)
[2019-11-22] MEDS ORDERED: D5% in Water 1,000 ML IVC PRN (03:31)
[2019-11-22] MEDS ORDERED: Dextrose Gel 15 GM/37.5 ML TUBE PO PRN ×2 (03:31)
[2019-11-22] MEDS ORDERED: *HR* Dextrose 50 % in Water (Syg) 50 ML SYRINGE IVP PRN (03:31)
[2019-11-22 04:15] LABS: Basophils % 0.1 %; Hematocrit 21.2 % (35.3-44.9); Hemoglobin 7.2 g/dL (11.5-15.4); Immature Granulocytes % 0.6 % (0-4); Lymphocytes # 0.3 K/mcL (0.6-4.6); Lymphocytes % 2.6 %; Mean Corpuscular Hemoglobin 31.2 pg (28.0-33.3); Mean Corpuscular Volume 91.8 fL (83.0-100.0); Mean Platelet Volume 9.7 fL (9.4-12.4); Monocytes # 0.2 K/mcL (0.0-1.3); Monocytes % 2.2 %; Neutrophils # 10.5 K/mcL (1.6-8.9); Platelet Count 387 K/mcL (140-400); Red Blood Count 2.31 M/mcL (3.82-4.97); Red Cell Distribution Width 13.4 % (11.5-14.5); Segmented Neutrophils % 94.5 %; White Blood Count 11.1 K/mcL (4.3-11.1)
[2019-11-22 04:43] LABS: Chol/HDL Ratio 3.4 (0-4.9)
[2019-11-22 04:47] LABS: Albumin 3.1 g/dL (3.5-5.7); Bilirubin,Total 0.9 mg/dL (0.3-1.0); Calcium 8.3 mg/dL (8.6-10.3); Globulin 3.2 g/dL (2.4-3.5); Magnesium 1.5 mg/dL (1.6-2.6); Phosphorous 4.5 mg/dL (2.7-4.5); Potassium 4.5 mEq/L (3.5-5.1); Total Protein 6.3 g/dL (6.4-8.9)
[2019-11-22 04:58] LABS: Thyroid Stimulating Hormone 1.595 mcIU/mL (0.340-5.600)
[2019-11-22 05:00] LABS: Immature Reticulocyte % 24.4 % (11.0-38.0); Retculocyte # 0.08 M/mcL (0.05-0.10); Reticulocyte % 3.3 % (1.6-2.8)
[2019-11-22] MEDS ORDERED: cefTRIAXone 2,000 MG in Water for inj. (sterile) 20 ML IVP ONE (05:02)
[2019-11-22] MEDS ORDERED: Aspirin Enteric Coated 325 MG Tablet PO ONE (05:06)
[2019-11-22] MEDS ORDERED: *HR* Heparin 5,000 UNIT/ML VIAL IVP ONE (05:07)
[2019-11-22] MEDS ORDERED: *HR* Heparin 5,000 UNIT/ML VIAL IVP PRN ×2 (05:07)
[2019-11-22] MEDS ORDERED: Heparin 25,000 UNIT/250 ML D5W 25,000 UNIT/250 ML IV.SOLN IVC SCH (05:15)
[2019-11-22 05:35] LABS: Sodium, Urine 40.8 mEq/L
[2019-11-22] MEDS ORDERED: Furosemide 40 MG/4 ML VIAL IVP SCH (06:00)
[2019-11-22] MEDS: Azithromycin 500 MG in 0.9 % Sodium Chloride 250 ML IVPB SCH (06:00)
[2019-11-22] MEDS ORDERED: *HR* Heparin 5,000 UNIT/ML VIAL SQ SCH (06:00)
[2019-11-22] MEDS: Insulin LISPRO 300 UNITS/3 ML VIAL SQ SCH ×3 (06:32→17:19)
[2019-11-22] MEDS: Ondansetron ODT 4 MG TAB.RAPDIS SL PRN (06:34)
[2019-11-22 06:46] LABS: INR 1.2; Prothrombin Time 13.9 Seconds (9.4-12.1)
[2019-11-22 06:49] LABS: Heparin anti-factor XA UFH 0.03 IU/mL (0.30-0.70)
[2019-11-22 09:55] LABS: Estimated Average Glucose 220 mg/dl
[2019-11-22] MEDS ORDERED: Perflutren Lipid Microsphere 1.3 ML in 0.9 % Sodium Chloride 8.7 ML IVP ONE (10:38)
[2019-11-22] MEDS ORDERED: Albumin 25% 25gram/100mL 25 GM/100 ML IV.SOLN IVPB ONE ×2 (16:00→17:24)
[2019-11-22 16:44] LABS: Hematocrit 20.1 % (35.3-44.9); Hemoglobin 6.7 g/dL (11.5-15.4)
[2019-11-22] MEDS: *HR* Heparin 5,000 UNIT/ML VIAL SQ SCH (17:19)
[2019-11-22] MEDS: BuPROPion XL (24 HR) 150 MG TABLET PO SCH (17:55)
[2019-11-22] MEDS: Furosemide 40 MG/4 ML VIAL IVP SCH ×2 (19:58→23:23)
[2019-11-22] MEDS: Gabapentin 400 MG CAPSULE PO SCH (21:31)
[2019-11-22] MEDS: QUEtiapine Fumarate 100 MG TABLET PO SCH (21:31)
[2019-11-23 03:56] LABS: Calcium 8.6 mg/dL (8.6-10.3); Potassium 4.5 mEq/L (3.5-5.1)
[2019-11-23] MEDS: (Buprenorphine Hcl/Naloxone Hcl [Buprenorphin-Naloxon SL SCH ×2 (04:00→08:39)
[2019-11-23 04:25] LABS: Basophils % 0.1 %; Eosinophils % 0.2 %; Hematocrit 20.5 % (35.3-44.9); Hemoglobin 6.6 g/dL (11.5-15.4); Immature Granulocytes % 0.3 % (0-4); Lymphocytes # 0.9 K/mcL (0.6-4.6); Lymphocytes % 7.5 %; Mean Corpuscular HGB Conc 32.2 g/dL (31.6-35.5); Mean Corpuscular Hemoglobin 30.3 pg (28.0-33.3); Mean Platelet Volume 10.2 fL (9.4-12.4); Monocytes # 0.6 K/mcL (0.0-1.3); Monocytes % 5.4 %; Neutrophils # 10.2 K/mcL (1.6-8.9); Nucleated Red Blood Cells 0.5 /100 WBC (0); Platelet Count 408 K/mcL (140-400); Red Blood Count 2.18 M/mcL (3.82-4.97); Red Cell Distribution Width 13.9 % (11.5-14.5); Segmented Neutrophils % 86.5 %; White Blood Count 11.8 K/mcL (4.3-11.1)
[2019-11-23] MEDS: Azithromycin 500 MG in 0.9 % Sodium Chloride 250 ML IVPB SCH (05:25)
[2019-11-23] MEDS: *HR* Heparin 5,000 UNIT/ML VIAL SQ SCH ×2 (05:26→17:03)
[2019-11-23] MEDS: Furosemide 40 MG/4 ML VIAL IVP SCH ×3 (05:52→16:15)
[2019-11-23] MEDS: Gabapentin 400 MG CAPSULE PO SCH (08:34)
[2019-11-23] MEDS: Aspirin Enteric Coated 81 MG Tablet PO SCH (08:34)
[2019-11-23] MEDS: BuPROPion XL (24 HR) 150 MG TABLET PO SCH (08:34)
[2019-11-23] MEDS: FLUoxetine 20 MG CAPSULE PO SCH ×2 (08:35)
[2019-11-23] MEDS ORDERED: cefTRIAXone 1,000 MG in Water for inj. (sterile) 10 ML IVP SCH (09:00)
[2019-11-23] MEDS: Insulin LISPRO 300 UNITS/3 ML VIAL SQ SCH ×4 (09:48→21:40)
[2019-11-23] MEDS ORDERED: *HR* OxyCODONE/APAP 5/325 TABLET PO PRN (11:30)
[2019-11-23] MEDS ORDERED: 0.9 % Sodium Chloride 250 ML ONE (12:36)
[2019-11-23] MEDS: Gabapentin 300 MG CAPSULE PO SCH ×2 (15:40→20:09)
[2019-11-23] MEDS: QUEtiapine Fumarate 100 MG TABLET PO SCH (20:09)
[2019-11-24 05:42] LABS: Basophils % 0.2 %; Eosinophils # 0.3 K/mcL (0.0-0.6); Eosinophils % 2.4 %; Hematocrit 21.3 % (35.3-44.9); Hemoglobin 6.7 g/dL (11.5-15.4); Immature Granulocytes % 0.6 % (0-4); Lymphocytes # 1.2 K/mcL (0.6-4.6); Lymphocytes % 9.5 %; Mean Corpuscular HGB Conc 31.5 g/dL (31.6-35.5); Mean Corpuscular Hemoglobin 30.3 pg (28.0-33.3); Mean Corpuscular Volume 96.4 fL (83.0-100.0); Mean Platelet Volume 9.9 fL (9.4-12.4); Monocytes # 0.6 K/mcL (0.0-1.3); Monocytes % 4.9 %; Neutrophils # 10.7 K/mcL (1.6-8.9); Nucleated Red Blood Cells 0.4 /100 WBC (0); Platelet Count 371 K/mcL (140-400); Red Blood Count 2.21 M/mcL (3.82-4.97); Red Cell Distribution Width 15.2 % (11.5-14.5); Segmented Neutrophils % 82.4 %
[2019-11-24 06:05] LABS: Calcium 8.5 mg/dL (8.6-10.3); Magnesium 1.8 mg/dL (1.6-2.6); Phosphorous 4.5 mg/dL (2.7-4.5); Potassium 4.4 mEq/L (3.5-5.1)
[2019-11-24] MEDS: *HR* Heparin 5,000 UNIT/ML VIAL SQ SCH (06:29)
[2019-11-24] MEDS: Insulin LISPRO 300 UNITS/3 ML VIAL SQ SCH ×4 (08:31→22:08)
[2019-11-24] MEDS: FLUoxetine 20 MG CAPSULE PO SCH ×2 (08:31→08:32)
[2019-11-24] MEDS: BuPROPion XL (24 HR) 150 MG TABLET PO SCH (08:31)
[2019-11-24] MEDS: Gabapentin 300 MG CAPSULE PO SCH ×3 (08:32→20:46)
[2019-11-24] MEDS: Furosemide 40 MG/4 ML VIAL IVP SCH (08:32)
[2019-11-24] MEDS: Aspirin Enteric Coated 81 MG Tablet PO SCH (08:32)
[2019-11-24] MEDS ORDERED: Furosemide 20 MG/2 ML VIAL IVP ONE ×3 (12:49→21:11)
[2019-11-24] MEDS: SUBOXONE SL SCH ×2 (13:24→22:28)
[2019-11-24] MEDS ORDERED: 0.9 % Sodium Chloride 250 ML ONE (14:02)
[2019-11-24] MEDS: QUEtiapine Fumarate 100 MG TABLET PO SCH (20:46)
[2019-11-25 05:01] LABS: Basophils % 0.3 %; Eosinophils # 0.4 K/mcL (0.0-0.6); Hematocrit 24.9 % (35.3-44.9); Hemoglobin 7.8 g/dL (11.5-15.4); Immature Granulocytes % 0.4 % (0-4); Lymphocytes # 1.4 K/mcL (0.6-4.6); Lymphocytes % 10.5 %; Mean Corpuscular HGB Conc 31.3 g/dL (31.6-35.5); Mean Corpuscular Hemoglobin 30.4 pg (28.0-33.3); Mean Corpuscular Volume 96.9 fL (83.0-100.0); Mean Platelet Volume 9.9 fL (9.4-12.4); Monocytes # 0.6 K/mcL (0.0-1.3); Monocytes % 4.3 %; Neutrophils # 11.1 K/mcL (1.6-8.9); Nucleated Red Blood Cells 0.4 /100 WBC (0); Platelet Count 370 K/mcL (140-400); Red Blood Count 2.57 M/mcL (3.82-4.97); Red Cell Distribution Width 15.1 % (11.5-14.5); Segmented Neutrophils % 81.5 %; White Blood Count 13.6 K/mcL (4.3-11.1)
[2019-11-25 05:17] LABS: Calcium 8.5 mg/dL (8.6-10.3); Potassium 4.4 mEq/L (3.5-5.1)
[2019-11-25] MEDS: Insulin LISPRO 300 UNITS/3 ML VIAL SQ SCH ×5 (07:55→23:51)
[2019-11-25] MEDS: BuPROPion XL (24 HR) 150 MG TABLET PO SCH (08:42)
[2019-11-25] MEDS: Aspirin Enteric Coated 81 MG Tablet PO SCH (08:43)
[2019-11-25] MEDS: Gabapentin 300 MG CAPSULE PO SCH ×3 (08:43→21:07)
[2019-11-25] MEDS: SUBOXONE SL SCH ×2 (08:44→21:41)
[2019-11-25] MEDS: FLUoxetine 20 MG CAPSULE PO SCH ×2 (08:44)
[2019-11-25] MEDS ORDERED: Ipratropium/Albuterol Neb 3 ML IH PRN (12:28)
[2019-11-25] MEDS ORDERED: MethylPREDNISolone 40 MG/ML VIAL IVP SCH (12:55)
[2019-11-25] MEDS: Doxycycline 100 MG in 0.9 % Sodium Chloride Mini Bag 100 ML IVPB SCH ×2 (13:50→17:51)
[2019-11-25] MEDS: levoFLOXacin 750 MG/150 ML 750 MG/150 ML BAG IVPB SCH (13:52)
[2019-11-25] MEDS: Furosemide 40 MG/4 ML VIAL IVP SCH (15:29)
[2019-11-25 15:31] LABS: ABG Base Excess 1 mEq/L (-2 to 3); ABG HCO3 26 mEq/L (21-27); ABG Oxygen Saturation 95 % (95-98); ABG PCO2 45 mmHg (35-45); ABG PH 7.37 pH Units (7.32-7.45); ABG PO2 76 mmHg (85-104); ABG TCO2 27 mEq/L (20-26)
[2019-11-25] MEDS: QUEtiapine Fumarate 100 MG TABLET PO SCH (21:06)
[2019-11-25] MEDS: Furosemide 40 MG/4 ML VIAL IV SCH ×2 (21:48→23:35)
[2019-11-26 02:59] LABS: INR 1.4
[2019-11-26 03:02] LABS: VBG Ionized Calcium 1.15 mmol/L (1.15-1.35)
[2019-11-26 03:04] LABS: Basophils % 0.1 %; Eosinophils % 0.1 %; Hematocrit 25.8 % (35.3-44.9); Hemoglobin 8.1 g/dL (11.5-15.4); Immature Granulocytes % 0.4 % (0-4); Lymphocytes # 0.4 K/mcL (0.6-4.6); Lymphocytes % 2.2 %; Mean Corpuscular HGB Conc 31.4 g/dL (31.6-35.5); Mean Corpuscular Hemoglobin 30.3 pg (28.0-33.3); Mean Corpuscular Volume 96.6 fL (83.0-100.0); Mean Platelet Volume 9.9 fL (9.4-12.4); Monocytes # 0.5 K/mcL (0.0-1.3); Monocytes % 2.8 %; Neutrophils # 15.3 K/mcL (1.6-8.9); Platelet Count 440 K/mcL (140-400); Red Blood Count 2.67 M/mcL (3.82-4.97); Red Cell Distribution Width 14.9 % (11.5-14.5); Segmented Neutrophils % 94.4 %; White Blood Count 16.2 K/mcL (4.3-11.1)
[2019-11-26 03:14] LABS: Calcium 8.9 mg/dL (8.6-10.3); Potassium 4.5 mEq/L (3.5-5.1)
[2019-11-26 03:15] LABS: Magnesium 1.8 mg/dL (1.6-2.6); Phosphorous 4.9 mg/dL (2.7-4.5)
[2019-11-26] MEDS: Doxycycline 100 MG in 0.9 % Sodium Chloride Mini Bag 100 ML IVPB SCH ×2 (06:22→17:06)
[2019-11-26] MEDS: Insulin LISPRO 300 UNITS/3 ML VIAL SQ SCH ×5 (06:42→21:20)
[2019-11-26] MEDS: BuPROPion XL (24 HR) 150 MG TABLET PO SCH (08:57)
[2019-11-26] MEDS: Gabapentin 300 MG CAPSULE PO SCH ×3 (08:57→20:49)
[2019-11-26] MEDS: Aspirin Enteric Coated 81 MG Tablet PO SCH (08:57)
[2019-11-26] MEDS: FLUoxetine 20 MG CAPSULE PO SCH ×2 (08:59)
[2019-11-26] MEDS: Furosemide 40 MG/4 ML VIAL IVP SCH ×3 (09:00→16:57)
[2019-11-26] MEDS: SUBOXONE SL SCH ×2 (09:24→21:10)
[2019-11-26] MEDS: *HR* Heparin 5,000 UNIT/ML VIAL SQ SCH (17:14)
[2019-11-26] MEDS ORDERED: Insulin LISPRO 300 UNITS/3 ML VIAL SQ SCH (18:00)
[2019-11-26] MEDS ORDERED: Acetaminophen 325 MG TABLET PO PRN (18:09)
[2019-11-26] MEDS: QUEtiapine Fumarate 100 MG TABLET PO SCH (20:49)
[2019-11-27 01:14] LABS: Basophils % 0.1 %; Eosinophils # 0.5 K/mcL (0.0-0.6); Eosinophils % 3.2 %; Hematocrit 26.4 % (35.3-44.9); Hemoglobin 8.2 g/dL (11.5-15.4); Immature Granulocytes % 0.3 % (0-4); Lymphocytes % 6.9 %; Mean Corpuscular HGB Conc 31.1 g/dL (31.6-35.5); Mean Corpuscular Hemoglobin 29.8 pg (28.0-33.3); Mean Platelet Volume 9.9 fL (9.4-12.4); Monocytes # 0.8 K/mcL (0.0-1.3); Monocytes % 5.4 %; Nucleated Red Blood Cells 0.3 /100 WBC (0); Platelet Count 444 K/mcL (140-400); Red Blood Count 2.75 M/mcL (3.82-4.97); Red Cell Distribution Width 14.9 % (11.5-14.5); Segmented Neutrophils % 84.1 %; White Blood Count 14.2 K/mcL (4.3-11.1)
[2019-11-27 01:32] LABS: Phosphorous 4.5 mg/dL (2.7-4.5); Potassium 4.1 mEq/L (3.5-5.1)
[2019-11-27] MEDS: *HR* Heparin 5,000 UNIT/ML VIAL SQ SCH ×2 (05:26→18:02)
[2019-11-27] MEDS: Doxycycline 100 MG in 0.9 % Sodium Chloride Mini Bag 100 ML IVPB SCH ×2 (05:26→17:58)
[2019-11-27] MEDS: Insulin LISPRO 300 UNITS/3 ML VIAL SQ SCH ×4 (07:44→20:48)
[2019-11-27] MEDS: Gabapentin 300 MG CAPSULE PO SCH ×3 (09:03→20:47)
[2019-11-27] MEDS: Furosemide 40 MG/4 ML VIAL IVP SCH ×3 (09:03→17:58)
[2019-11-27] MEDS: Aspirin Enteric Coated 81 MG Tablet PO SCH (09:04)
[2019-11-27] MEDS: SUBOXONE SL SCH ×2 (09:04→21:07)
[2019-11-27] MEDS: FLUoxetine 20 MG CAPSULE PO SCH ×2 (09:04)
[2019-11-27] MEDS: BuPROPion XL (24 HR) 150 MG TABLET PO SCH (09:04)
[2019-11-27] MEDS: Ondansetron ODT 4 MG TAB.RAPDIS SL PRN ×2 (10:01→18:38)
[2019-11-27] MEDS: levoFLOXacin 750 MG/150 ML 750 MG/150 ML BAG IVPB SCH (12:58)
[2019-11-27 13:45] LABS: Adenovirus Not Detected (Not Detect); Bordetella Pertussis Not Detected (Not Detect); Chlamydophila pneumoniae Not Detected (Not Detect); Coronavirus 229E Not Detected (Not Detect); Coronavirus HKU1 Not Detected (Not Detect); Coronavirus NL63 Not Detected (Not Detect); Coronavirus OC43 Not Detected (Not Detect); Human Metapneumovirus Not Detected (Not Detect); Human Rhinovirus/Enterovirus Not Detected (Not Detect); Influenza A Subtype 2009 H1 Not Detected (Not Detect); Influenza B Not Detected (Not Detect); Mycoplasma pneumoniae Not Detected (Not Detect); Parainfluenza Virus 1 Not Detected (Not Detect); Parainfluenza Virus 2 Not Detected (Not Detect); Parainfluenza Virus 3 Not Detected (Not Detect); Parainfluenza Virus 4 Not Detected (Not Detect); Respiratory Syncytial Virus Not Detected (Not Detect)
[2019-11-27] MEDS: QUEtiapine Fumarate 100 MG TABLET PO SCH (20:48)
[2019-11-28 05:20] LABS: Basophils % 0.3 %; Eosinophils # 0.6 K/mcL (0.0-0.6); Eosinophils % 6.2 %; Hematocrit 26.7 % (35.3-44.9); Hemoglobin 8.6 g/dL (11.5-15.4); Immature Granulocytes % 0.7 % (0-4); Lymphocytes # 1.4 K/mcL (0.6-4.6); Lymphocytes % 13.5 %; Mean Corpuscular HGB Conc 32.2 g/dL (31.6-35.5); Mean Corpuscular Hemoglobin 29.6 pg (28.0-33.3); Mean Corpuscular Volume 91.8 fL (83.0-100.0); Mean Platelet Volume 10.1 fL (9.4-12.4); Monocytes # 0.8 K/mcL (0.0-1.3); Monocytes % 7.5 %; Neutrophils # 7.3 K/mcL (1.6-8.9); Platelet Count 495 K/mcL (140-400); Red Blood Count 2.91 M/mcL (3.82-4.97); Red Cell Distribution Width 14.7 % (11.5-14.5); Segmented Neutrophils % 71.8 %; White Blood Count 10.2 K/mcL (4.3-11.1)
[2019-11-28 05:42] LABS: Potassium 4.5 mEq/L (3.5-5.1)
[2019-11-28] MEDS: Doxycycline 100 MG in 0.9 % Sodium Chloride Mini Bag 100 ML IVPB SCH (06:39)
[2019-11-28] MEDS: *HR* Heparin 5,000 UNIT/ML VIAL SQ SCH (06:45)
[2019-11-28] MEDS: Insulin LISPRO 300 UNITS/3 ML VIAL SQ SCH ×2 (08:13→12:01)
[2019-11-28] MEDS: FLUoxetine 20 MG CAPSULE PO SCH ×2 (08:14→08:15)
[2019-11-28] MEDS: Aspirin Enteric Coated 81 MG Tablet PO SCH (08:14)
[2019-11-28] MEDS: Gabapentin 300 MG CAPSULE PO SCH (08:14)
[2019-11-28] MEDS: BuPROPion XL (24 HR) 150 MG TABLET PO SCH (08:14)
[2019-11-28] MEDS: Furosemide 40 MG/4 ML VIAL IVP SCH ×2 (08:16→14:37)
[2019-11-28] MEDS ORDERED: Albumin 25% 25gram/100mL 25 GM/100 ML IV.SOLN IVPB SCH (08:29)
[2019-11-28] MEDS: SUBOXONE SL SCH (08:49)
[2019-11-28] MEDS: Ondansetron ODT 4 MG TAB.RAPDIS SL PRN (08:53)
[2019-11-28] MEDS ORDERED: metOLazone 5 MG TABLET PO SCH (09:00)
[2019-11-28] MEDS ORDERED: *HR* Phenylephrine 10 MG/ML VIAL ONE (10:29)
[2019-11-28] MEDS ORDERED: 0.9 % Sodium Chloride 1,000 ML ONE (10:32)
[2019-11-28] MEDS ORDERED: Dexmedetomidine HCl 400 MCG/100 ML MLS IVC SCH (10:45)
[2019-11-28] MEDS ORDERED: FentaNYL (PF) 1,000 MCG in 0.9 % Sodium Chloride 80 ML IVC SCH (10:45)
[2019-11-28] MEDS ORDERED: DilTIAZem 50 MG in 0.9 % Sodium Chloride 40 ML IVC SCH (10:45)
[2019-11-28] MEDS ORDERED: Artificial Tears SOLN 15 ML BOTTLE BOTH EYES PRN (10:59)
[2019-11-28] MEDS ORDERED: *HR* Midazolam HCl 5 MG/5 ML VIAL IVP ONE ×2 (11:00)
[2019-11-28] MEDS ORDERED: Famotidine 20 MG/2 ML VIAL IVP SCH (11:00)
[2019-11-28] MEDS ORDERED: *HR* LORazepam 2 MG/ML VIAL IVP PRN (11:04)
[2019-11-28 11:19] LABS: ABG Base Excess -2 mEq/L (-2 to 3); ABG HCO3 24 mEq/L (21-27); ABG Oxygen Saturation 88 % (95-98); ABG PCO2 48 mmHg (35-45); ABG PH 7.32 pH Units (7.32-7.45); ABG PO2 59 mmHg (85-104); ABG TCO2 26 mEq/L (20-26); Blood Gas Modality ASSIST CONTROL; Blood Gas VT 400 cc
[2019-11-28] MEDS ORDERED: Artificial Tears SOLN 15 ML BOTTLE BOTH EYES SCH (12:00)
[2019-11-28] MEDS ORDERED: *HR* Etomidate 40 MG/20 ML VIAL IVP ONE (12:43)
[2019-11-28] MEDS ORDERED: *HR* Midazolam HCl 2 MG/2 ML VIAL IV ONE (12:43)
[2019-11-28] MEDS ORDERED: *HR* Succinylcholine 200 MG/10 ML VIAL IVP ONE (12:43)
[2019-11-28 15:12] VITALS: BP 87/60
[2019-11-28] MEDS ORDERED: Chlorhexidine Rinse 15 ML MOUTHWASH MM SCH (21:00)
[2019-11-30 09:39] LABS: Anaplasma phagocytophilum IgG <1:80 (<1:80); Anaplasma phagocytophilum IgM < 1:16 (< 1:16)
== END 2019-11-28 15:13 | disposition short-term general hospital (02) | DRG 280 ==
LOC: 2NNU → SUATTDRO 03:27 → ICNU 11-28 10:15
PROVIDERS: ADMIT Family Medicine; ATTEND Internal Medicine

== ENCOUNTER 2021-05-02 03:26 | Inpatient (IN) ==
[2021-05-02] MEDS ORDERED: Acetaminophen 325 MG TABLET PO PRN (07:30)
[2021-05-02 08:09] LABS: Basophils % 0.1 %; Eosinophils % 0.2 %; Hematocrit 29.5 % (35.3-44.9); Hemoglobin 9.2 g/dL (11.5-15.4); Immature Granulocytes % 0.4 % (0-4); Lymphocytes # 1.4 K/mcL (0.6-4.6); Lymphocytes % 13.9 %; Mean Corpuscular HGB Conc 31.2 g/dL (31.6-35.5); Mean Corpuscular Hemoglobin 28.9 pg (28.0-33.3); Mean Corpuscular Volume 92.8 fL (83.0-100.0); Monocytes # 0.7 K/mcL (0.0-1.3); Monocytes % 7.3 %; Platelet Count 229 K/mcL (140-400); Red Blood Count 3.18 M/mcL (3.82-4.97); Red Cell Distribution Width 12.3 % (11.5-14.5); Segmented Neutrophils % 78.1 %; White Blood Count 10.2 K/mcL (4.3-11.1)
[2021-05-02] MEDS ORDERED: Dextrose Gel 15 GM/37.5 ML TUBE PO PRN ×2 (08:17)
[2021-05-02] MEDS ORDERED: D5% in Water 1,000 ML IVC PRN (08:17)
[2021-05-02 08:21] LABS: INR 1.1
[2021-05-02 08:22] LABS: Albumin 3.2 g/dL (3.5-5.7); Albumin/Globulin Ratio 1.1 (1.1-2.2); Bilirubin,Total 0.4 mg/dL (0.3-1.0); Calcium 8.7 mg/dL (8.6-10.3); Globulin 2.9 g/dL (2.4-3.5); Potassium 4.5 mEq/L (3.5-5.1); Total Protein 6.1 g/dL (6.4-8.9)
[2021-05-02] MEDS ORDERED: Aspirin 325 MG TABLET PO ONE (08:49)
[2021-05-02] MEDS ORDERED: *HR* Heparin 5,000 UNIT/ML VIAL IVP PRN ×2 (09:44)
[2021-05-02] MEDS: cefTRIAXone 2,000 MG in Water for inj. (sterile) 20 ML IVP SCH (09:44)
[2021-05-02] MEDS ORDERED: *HR* Heparin 5,000 UNIT/ML VIAL IVP ONE (09:44)
[2021-05-02] MEDS: Azithromycin 500 MG in 0.9 % Sodium Chloride 250 ML IVPB SCH (09:45)
[2021-05-02] MEDS: Insulin DETEMIR 100 UNIT/ML X5UNITS SUBQ SCH (09:45)
[2021-05-02] MEDS: Furosemide 40 MG/4 ML VIAL IVP SCH ×2 (09:45→21:16)
[2021-05-02] MEDS ORDERED: Perflutren Lipid Microsphere 1.3 ML in 0.9 % Sodium Chloride 8.7 ML IVP PRN (10:11)
[2021-05-02] MEDS: Metoprolol XL (24 HR) Succ 25 MG TAB.ER.24H PO SCH (10:49)
[2021-05-02] MEDS: Heparin 25,000UNIT/250ML 1/2NS 25,000 UNIT/250 ML IV.SOLN IVC SCH (10:54)
[2021-05-02] MEDS: Insulin LISPRO 300 UNITS/3 ML VIAL SUBQ SCH ×3 (11:54→22:48)
[2021-05-02] MEDS ORDERED: *HR* Heparin 5,000 UNIT/ML VIAL SQ SCH (14:00)
[2021-05-02] MEDS: Gabapentin 400 MG CAPSULE PO SCH (21:15)
[2021-05-03 01:08] LABS: Hematocrit 28.6 % (35.3-44.9); Hemoglobin 8.7 g/dL (11.5-15.4); Mean Corpuscular HGB Conc 30.4 g/dL (31.6-35.5); Mean Corpuscular Hemoglobin 28.5 pg (28.0-33.3); Mean Corpuscular Volume 93.8 fL (83.0-100.0); Mean Platelet Volume 10.5 fL (9.4-12.4); Platelet Count 264 K/mcL (140-400); Red Blood Count 3.05 M/mcL (3.82-4.97); Red Cell Distribution Width 12.5 % (11.5-14.5); White Blood Count 8.2 K/mcL (4.3-11.1)
[2021-05-03 01:34] LABS: Calcium 8.4 mg/dL (8.6-10.3); Potassium 4.7 mEq/L (3.5-5.1)
[2021-05-03] MEDS: Metoprolol XL (24 HR) Succ 25 MG TAB.ER.24H PO SCH (08:39)
[2021-05-03] MEDS: Insulin LISPRO 300 UNITS/3 ML VIAL SUBQ SCH ×4 (08:39→20:39)
[2021-05-03] MEDS: Aspirin 81 MG TAB.CHEW PO SCH (08:40)
[2021-05-03] MEDS: Furosemide 40 MG/4 ML VIAL IVP SCH (08:40)
[2021-05-03] MEDS: Gabapentin 400 MG CAPSULE PO SCH ×2 (08:40→20:49)
[2021-05-03] MEDS: cefTRIAXone 2,000 MG in Water for inj. (sterile) 20 ML IVP SCH (08:40)
[2021-05-03] MEDS: Azithromycin 500 MG in 0.9 % Sodium Chloride 250 ML IVPB SCH (08:41)
[2021-05-03] MEDS: Insulin DETEMIR 100 UNIT/ML X5UNITS SUBQ SCH (08:47)
[2021-05-03] MEDS: Heparin 25,000UNIT/250ML 1/2NS 25,000 UNIT/250 ML IV.SOLN IVC SCH (09:07)
[2021-05-03] MEDS ORDERED: Metoprolol XL (24 HR) Succ 25 MG TAB.ER.24H PO ONE (09:50)
[2021-05-03] MEDS: Ondansetron 4 MG/2 ML VIAL IVP PRN ×2 (11:24→20:55)
[2021-05-03] MEDS ORDERED: SODIUM CHLORIDE/NAHCO3/KCL/PEG 4,000 ML SOLN.RECON PO ONE (18:25)
[2021-05-03] MEDS: QUEtiapine Fumarate 100 MG TABLET PO SCH (20:49)
[2021-05-03] MEDS: *HR* Buprenorphine HCl 8 MG TAB.SUBL SL SCH (20:49)
[2021-05-04 05:21] LABS: Basophils % 0.3 %; Eosinophils # 0.3 K/mcL (0.0-0.6); Eosinophils % 2.8 %; Hematocrit 25.8 % (35.3-44.9); Hemoglobin 8.1 g/dL (11.5-15.4); Immature Granulocytes % 0.4 % (0-4); Lymphocytes # 1.6 K/mcL (0.6-4.6); Lymphocytes % 14.8 %; Mean Corpuscular HGB Conc 31.4 g/dL (31.6-35.5); Mean Corpuscular Hemoglobin 29.2 pg (28.0-33.3); Mean Corpuscular Volume 93.1 fL (83.0-100.0); Mean Platelet Volume 10.5 fL (9.4-12.4); Monocytes # 0.7 K/mcL (0.0-1.3); Monocytes % 6.6 %; Neutrophils # 8.2 K/mcL (1.6-8.9); Platelet Count 256 K/mcL (140-400); Red Blood Count 2.77 M/mcL (3.82-4.97); Red Cell Distribution Width 12.4 % (11.5-14.5); Segmented Neutrophils % 75.1 %
[2021-05-04 05:36] LABS: Calcium 8.1 mg/dL (8.6-10.3); Potassium 4.7 mEq/L (3.5-5.1); Uric Acid 7.8 mg/dL (2.3-7.6)
[2021-05-04 05:43] LABS: % Iron Saturation 13 % (15-50); Iron 25 mcg/dL (50-170); Transferrin 136 mg/dL (203-362)
[2021-05-04 05:56] LABS: Ferritin 155 ng/mL (10-120)
[2021-05-04 06:02] LABS: Folate 19.1 ng/mL (3.0-16.0)
[2021-05-04] MEDS: Insulin LISPRO 300 UNITS/3 ML VIAL SUBQ SCH ×4 (07:30→20:24)
[2021-05-04] MEDS: Cholecalciferol (D-3) 1,000 UNIT (25MCG) TABLET PO SCH (08:12)
[2021-05-04] MEDS: Aspirin 81 MG TAB.CHEW PO SCH (08:12)
[2021-05-04] MEDS: Gabapentin 400 MG CAPSULE PO SCH (08:13)
[2021-05-04] MEDS: *HR* Buprenorphine HCl 8 MG TAB.SUBL SL SCH ×2 (08:13→20:31)
[2021-05-04] MEDS: FLUoxetine 20 MG CAPSULE PO SCH (08:13)
[2021-05-04] MEDS: Ascorbic Acid 500 MG TABLET PO SCH (08:14)
[2021-05-04] MEDS: Metoprolol XL (24 HR) Succ 50 MG TAB.ER.24H PO SCH (08:14)
[2021-05-04] MEDS: Fluticasone Propionate Nasal 50 MCG/SPRAY BOTTLE NS SCH (08:18)
[2021-05-04] MEDS: Insulin DETEMIR 100 UNIT/ML X5UNITS SUBQ SCH (08:29)
[2021-05-04] MEDS ORDERED: BuPROPion XL (24 HR) 150 MG TABLET PO SCH (09:00)
[2021-05-04] MEDS ORDERED: Furosemide 40 MG/4 ML VIAL IVP SCH (09:00)
[2021-05-04] MEDS: *HR* Dextrose 50 % in Water (Vial) 50 ML VIAL IVP PRN ×2 (11:51→16:35)
[2021-05-04 14:16] LABS: Bacteria,Urine Few per hpf (None-Few); Bilirubin,Urine Negative (Negative); Blood,Urine Moderate (Negative); Clarity,Urine Turbid (Clear); Color,Urine Yellow (Yellow); Glucose,Urine (UA) Normal (Normal); Granular Casts,Urine Few per lpf (None Seen); Hyaline Casts,Urine Few per lpf (None Seen); Ketones,Urine Negative (Negative); Leukocyte Esterase,Urine Moderate (Negative); Mucus,Urine Few per lpf (None-Few); Nitrite,Urine Negative (Negative); PH,Urine 5.5 pH Units (5.0-8.0); Protein,Urine 100 mg/dL (Neg-Trace); RBC,Urine 15-30 per hpf (0-3); Renal Epithelial Cells,Urine Few per hpf (None-Few); Specific Gravity,Urine 1.024 (1.010-1.025); Squamous Epithelial Cell,Urine Few per hpf (None-Few); Transitional Epi Cells,Urine Few per hpf (None-Few); Urobilinogen,Urine Normal (Normal); WBC,Urine 15-30 per hpf (0-3)
[2021-05-04 14:31] LABS: Protein/Creatinine Ratio,Urine 1.44 mg/mg (0.00-0.20); Sodium, Urine 23.5 mEq/L
[2021-05-04] MEDS ORDERED: *HR* Propofol 500 MG/50 ML BOTTLE IVP ONE (14:35)
[2021-05-04] MEDS ORDERED: Lidocaine -MPF 2% 5 ML VIAL SQ ONE (14:35)
[2021-05-04] MEDS: Ondansetron 4 MG/2 ML VIAL IVP PRN (20:17)
[2021-05-04] MEDS: QUEtiapine Fumarate 100 MG TABLET PO SCH ×2 (20:25→23:47)
[2021-05-05 03:23] LABS: Basophils % 0.3 %; Eosinophils # 0.4 K/mcL (0.0-0.6); Eosinophils % 5.1 %; Hematocrit 27.3 % (35.3-44.9); Hemoglobin 8.4 g/dL (11.5-15.4); Immature Granulocytes % 0.3 % (0-4); Lymphocytes # 1.1 K/mcL (0.6-4.6); Lymphocytes % 13.7 %; Mean Corpuscular HGB Conc 30.8 g/dL (31.6-35.5); Mean Corpuscular Volume 94.1 fL (83.0-100.0); Mean Platelet Volume 10.5 fL (9.4-12.4); Monocytes # 0.7 K/mcL (0.0-1.3); Monocytes % 8.3 %; Neutrophils # 5.7 K/mcL (1.6-8.9); Platelet Count 262 K/mcL (140-400); Red Cell Distribution Width 12.3 % (11.5-14.5); Segmented Neutrophils % 72.3 %; White Blood Count 7.8 K/mcL (4.3-11.1)
[2021-05-05 03:43] LABS: Calcium 8.5 mg/dL (8.6-10.3); Potassium 4.9 mEq/L (3.5-5.1)
[2021-05-05] MEDS: *HR* Buprenorphine HCl 8 MG TAB.SUBL SL SCH ×2 (09:15→20:43)
[2021-05-05] MEDS: Aspirin 81 MG TAB.CHEW PO SCH (09:16)
[2021-05-05] MEDS: Cholecalciferol (D-3) 1,000 UNIT (25MCG) TABLET PO SCH (09:16)
[2021-05-05] MEDS: FLUoxetine 20 MG CAPSULE PO SCH (09:16)
[2021-05-05] MEDS: Ascorbic Acid 500 MG TABLET PO SCH (09:16)
[2021-05-05] MEDS: Insulin LISPRO 300 UNITS/3 ML VIAL SUBQ SCH ×4 (09:30→20:30)
[2021-05-05] MEDS: Fluticasone Propionate Nasal 50 MCG/SPRAY BOTTLE NS SCH (09:34)
[2021-05-05] MEDS: Insulin DETEMIR 100 UNIT/ML X5UNITS SUBQ SCH (09:42)
[2021-05-05] MEDS: Metoprolol XL (24 HR) Succ 50 MG TAB.ER.24H PO SCH (14:28)
[2021-05-05] MEDS: Albumin 25% 25gram/100mL 25 GM/100 ML IV.SOLN IVPB SCH ×2 (14:34→20:41)
[2021-05-05] MEDS: QUEtiapine Fumarate 100 MG TABLET PO SCH (20:43)
[2021-05-05] MEDS: Gabapentin 300 MG CAPSULE PO SCH (20:43)
[2021-05-06] MEDS: Albumin 25% 25gram/100mL 25 GM/100 ML IV.SOLN IVPB SCH ×3 (06:04→23:04)
[2021-05-06 06:23] LABS: Basophils % 0.5 %; Eosinophils # 0.4 K/mcL (0.0-0.6); Eosinophils % 5.6 %; Hematocrit 25.6 % (35.3-44.9); Hemoglobin 7.9 g/dL (11.5-15.4); Immature Granulocytes % 0.2 % (0-4); Lymphocytes # 1.3 K/mcL (0.6-4.6); Lymphocytes % 19.8 %; Mean Corpuscular HGB Conc 30.9 g/dL (31.6-35.5); Mean Corpuscular Hemoglobin 28.8 pg (28.0-33.3); Mean Corpuscular Volume 93.4 fL (83.0-100.0); Mean Platelet Volume 10.7 fL (9.4-12.4); Monocytes # 0.6 K/mcL (0.0-1.3); Monocytes % 8.5 %; Neutrophils # 4.3 K/mcL (1.6-8.9); Platelet Count 249 K/mcL (140-400); Red Blood Count 2.74 M/mcL (3.82-4.97); Red Cell Distribution Width 12.3 % (11.5-14.5); Segmented Neutrophils % 65.4 %; White Blood Count 6.6 K/mcL (4.3-11.1)
[2021-05-06 06:41] LABS: Calcium 8.9 mg/dL (8.6-10.3); Potassium 4.7 mEq/L (3.5-5.1)
[2021-05-06] MEDS: Insulin LISPRO 300 UNITS/3 ML VIAL SUBQ SCH ×4 (09:14→20:52)
[2021-05-06] MEDS: Insulin DETEMIR 100 UNIT/ML X5UNITS SUBQ SCH (09:16)
[2021-05-06] MEDS: Metoprolol XL (24 HR) Succ 50 MG TAB.ER.24H PO SCH (09:17)
[2021-05-06] MEDS: *HR* Buprenorphine HCl 8 MG TAB.SUBL SL SCH ×2 (09:17→20:53)
[2021-05-06] MEDS: FLUoxetine 20 MG CAPSULE PO SCH (09:17)
[2021-05-06] MEDS: Aspirin 81 MG TAB.CHEW PO SCH (09:17)
[2021-05-06] MEDS: Ascorbic Acid 500 MG TABLET PO SCH (09:17)
[2021-05-06] MEDS: Cholecalciferol (D-3) 1,000 UNIT (25MCG) TABLET PO SCH (09:17)
[2021-05-06] MEDS: Fluticasone Propionate Nasal 50 MCG/SPRAY BOTTLE NS SCH (09:20)
[2021-05-06 12:17] LABS: Hematocrit 24.7 % (35.3-44.9); Hemoglobin 7.8 g/dL (11.5-15.4)
[2021-05-06] MEDS: QUEtiapine Fumarate 100 MG TABLET PO SCH (20:52)
[2021-05-06] MEDS: Gabapentin 300 MG CAPSULE PO SCH (20:52)
[2021-05-07 03:16] LABS: Basophils % 0.3 %; Eosinophils # 0.4 K/mcL (0.0-0.6); Eosinophils % 4.8 %; Hematocrit 24.2 % (35.3-44.9); Hemoglobin 7.6 g/dL (11.5-15.4); Immature Granulocytes % 0.1 % (0-4); Lymphocytes # 0.9 K/mcL (0.6-4.6); Mean Corpuscular HGB Conc 31.4 g/dL (31.6-35.5); Mean Corpuscular Hemoglobin 29.3 pg (28.0-33.3); Mean Corpuscular Volume 93.4 fL (83.0-100.0); Mean Platelet Volume 10.6 fL (9.4-12.4); Monocytes # 0.5 K/mcL (0.0-1.3); Monocytes % 7.1 %; Neutrophils # 5.7 K/mcL (1.6-8.9); Platelet Count 261 K/mcL (140-400); Red Blood Count 2.59 M/mcL (3.82-4.97); Red Cell Distribution Width 12.4 % (11.5-14.5); Segmented Neutrophils % 75.7 %; White Blood Count 7.5 K/mcL (4.3-11.1)
[2021-05-07 03:34] LABS: Calcium 9.3 mg/dL (8.6-10.3); Potassium 5.3 mEq/L (3.5-5.1)
[2021-05-07] MEDS: Albumin 25% 25gram/100mL 25 GM/100 ML IV.SOLN IVPB SCH (05:56)
[2021-05-07] MEDS: FLUoxetine 20 MG CAPSULE PO SCH (08:10)
[2021-05-07] MEDS: Ascorbic Acid 500 MG TABLET PO SCH (08:11)
[2021-05-07] MEDS: Metoprolol XL (24 HR) Succ 50 MG TAB.ER.24H PO SCH (08:11)
[2021-05-07] MEDS: Aspirin 81 MG TAB.CHEW PO SCH (08:11)
[2021-05-07] MEDS: Cholecalciferol (D-3) 1,000 UNIT (25MCG) TABLET PO SCH (08:11)
[2021-05-07] MEDS: Fluticasone Propionate Nasal 50 MCG/SPRAY BOTTLE NS SCH (08:12)
[2021-05-07] MEDS: Insulin DETEMIR 100 UNIT/ML X5UNITS SUBQ SCH (08:12)
[2021-05-07] MEDS: Insulin LISPRO 300 UNITS/3 ML VIAL SUBQ SCH ×2 (08:13→11:46)
[2021-05-07] MEDS: *HR* Buprenorphine HCl 8 MG TAB.SUBL SL SCH (08:15)
[2021-05-07 10:07] VITALS: BP 125/78; PULSE 96; TEMP 98.5
[2021-05-07] MEDS ORDERED: SODIUM ZIRCONIUM CYCLOSILICATE 5 GM POWD.PACK PO ONE (12:15)
[2021-05-07 12:50] VITALS: O2SAT 88
== END 2021-05-07 17:12 | disposition home or self-care (01) | DRG 280 ==
LOC: 2NENU → SUATTDRO 05:53
PROVIDERS: ADMIT Internal Medicine; ATTEND Internal Medicine
PROC: ENDOEBX (2021-05-04 10:00)

== ENCOUNTER 2021-05-08 11:37 | Inpatient (IN) ==
[2021-05-08] MEDS ORDERED: Naloxone 0.4 MG/ML INJ IVP PRN (15:06)
[2021-05-08] MEDS ORDERED: *HR* Dextrose 50 % in Water (Vial) 50 ML VIAL IVP PRN (17:09)
[2021-05-08] MEDS ORDERED: Dextrose Gel 15 GM/37.5 ML TUBE PO PRN ×2 (17:09)
[2021-05-08] MEDS ORDERED: D5% in Water 1,000 ML IVC PRN (17:09)
[2021-05-08 17:25] LABS: Calcium 9.3 mg/dL (8.6-10.3); Potassium 5.5 mEq/L (3.5-5.1)
[2021-05-08] MEDS: Albumin 25% 25gram/100mL 25 GM/100 ML IV.SOLN IVC SCH ×2 (18:00→20:50)
[2021-05-08 18:14] LABS: ABG Base Excess -1 mEq/L (-2 to 3); ABG HCO3 26 mEq/L (21-27); ABG Oxygen Saturation 94 % (95-98); ABG PCO2 51 mmHg (35-45); ABG PH 7.31 pH Units (7.32-7.45); ABG PO2 78 mmHg (85-104); ABG TCO2 27 mEq/L (20-26); Blood Gas Pressure Support 14 cm H2O
[2021-05-08 18:14] LABS: Troponin I 0.81 ng/mL (< 0.04)
[2021-05-08] MEDS ORDERED: *HR* Heparin 5,000 UNIT/ML VIAL IVP ONE (18:16)
[2021-05-08] MEDS ORDERED: *HR* Heparin 5,000 UNIT/ML VIAL IVP PRN ×2 (18:16)
[2021-05-08] MEDS ORDERED: Heparin 25,000UNIT/250ML 1/2NS 25,000 UNIT/250 ML IV.SOLN IVC SCH (18:30)
[2021-05-08] MEDS ORDERED: Insulin LISPRO 300 UNITS/3 ML VIAL SUBQ SCH (21:00)
[2021-05-08] MEDS ORDERED: NALOXONE HCL SL SCH (21:00)
[2021-05-08] MEDS ORDERED: QUEtiapine Fumarate 100 MG TABLET PO SCH (21:00)
[2021-05-08] MEDS ORDERED: BUPRENORPHINE HCL SL SCH (21:00)
[2021-05-08] MEDS: Gabapentin 400 MG CAPSULE PO SCH (21:12)
[2021-05-08 23:29] LABS: Hematocrit 23.6 % (35.3-44.9); Hemoglobin 7.3 g/dL (11.5-15.4); Mean Corpuscular HGB Conc 30.9 g/dL (31.6-35.5); Mean Corpuscular Volume 93.7 fL (83.0-100.0); Mean Platelet Volume 10.4 fL (9.4-12.4); Platelet Count 257 K/mcL (140-400); Red Blood Count 2.52 M/mcL (3.82-4.97); Red Cell Distribution Width 12.4 % (11.5-14.5); White Blood Count 7.7 K/mcL (4.3-11.1)
[2021-05-09] MEDS: Albumin 25% 25gram/100mL 25 GM/100 ML IV.SOLN IVC SCH ×2 (00:13→01:46)
[2021-05-09] MEDS ORDERED: Furosemide 40 MG/4 ML VIAL IVP ONE ×2 (01:00→12:01)
[2021-05-09] MEDS ORDERED: *HR* Buprenorphine HCl 8 MG TAB.SUBL SL SCH (02:30)
[2021-05-09] MEDS ORDERED: Furosemide 40 MG/4 ML VIAL ONE (03:34)
[2021-05-09 05:42] LABS: Basophils % 0.4 %; Eosinophils # 0.2 K/mcL (0.0-0.6); Eosinophils % 2.4 %; Hematocrit 22.4 % (35.3-44.9); Hemoglobin 6.8 g/dL (11.5-15.4); Immature Granulocytes % 0.3 % (0-4); Lymphocytes # 1.5 K/mcL (0.6-4.6); Lymphocytes % 21.8 %; Mean Corpuscular HGB Conc 30.4 g/dL (31.6-35.5); Mean Corpuscular Hemoglobin 28.7 pg (28.0-33.3); Mean Corpuscular Volume 94.5 fL (83.0-100.0); Mean Platelet Volume 9.7 fL (9.4-12.4); Monocytes # 0.7 K/mcL (0.0-1.3); Monocytes % 10.4 %; Neutrophils # 4.4 K/mcL (1.6-8.9); Platelet Count 246 K/mcL (140-400); Red Blood Count 2.37 M/mcL (3.82-4.97); Red Cell Distribution Width 12.6 % (11.5-14.5); Segmented Neutrophils % 64.7 %; White Blood Count 6.8 K/mcL (4.3-11.1)
[2021-05-09 06:01] LABS: Calcium 9.6 mg/dL (8.6-10.3); Potassium 4.6 mEq/L (3.5-5.1)
[2021-05-09] MEDS ORDERED: 0.9 % Sodium Chloride 250 ML IVC SCH (07:45)
[2021-05-09] MEDS ORDERED: BuPROPion XL (24 HR) 150 MG TABLET PO SCH (09:00)
[2021-05-09] MEDS ORDERED: Metoprolol XL (24 HR) Succ 50 MG TAB.ER.24H PO SCH (09:00)
[2021-05-09] MEDS ORDERED: Fluticasone Propionate Nasal 50 MCG/SPRAY BOTTLE NS SCH (09:00)
[2021-05-09] MEDS ORDERED: Cholecalciferol (D-3) 1,000 UNIT (25MCG) TABLET PO SCH (09:00)
[2021-05-09] MEDS ORDERED: FLUoxetine 20 MG CAPSULE PO SCH (09:00)
[2021-05-09] MEDS ORDERED: Aspirin Enteric Coated 81 MG Tablet PO SCH (09:00)
[2021-05-09] MEDS ORDERED: Ascorbic Acid 500 MG TABLET PO SCH (09:00)
[2021-05-09] MEDS: Gabapentin 400 MG CAPSULE PO SCH ×2 (10:05→18:08)
[2021-05-09] MEDS: Insulin LISPRO 300 UNITS/3 ML VIAL SUBQ SCH ×3 (11:35→17:31)
[2021-05-09 16:53] VITALS: BP 129/69
== END 2021-05-09 20:38 | disposition short-term general hospital (02) | DRG 280 ==
LOC: 2NENU → SUATTDRO 14:05
PROVIDERS: ADMIT Internal Medicine; ATTEND Internal Medicine